=== PATIENT | male | born 1965 | race Caucasian/White ===

== ENCOUNTER 2024-01-31 17:45 | Inpatient (IN) | payer MEDICAID, SELFPAY ==
[2024-01-31 17:46] VITALS: BP 111/85; PULSE 105; RESP 16; TEMP 36.4; O2SAT 96; BMI 25.1
--- NOTE | 2024-01-31 18:00 | EKG12_ITS ---
Test Reason : EDEMA Blood Pressure : / mmHG Vent. Rate : 102 BPM Atrial Rate : 102 BPM P-R Int : 112 ms QRS Dur : 072 ms QT Int : 436 ms P-R-T Axes : 071 015 115 degrees QTc Int : 568 ms Critical Test Result: Long QTc Sinus tachycardia with occasional Premature ventricular complexes Low voltage QRS ST & T wave abnormality, consider lateral ischemia Abnormal ECG Confirmed by XAVIER IRAHETA, SHAQUILLE ([id number]), senior editor ROYA LANDEROS ([id number]) on 02/01/2024 2:49:48 PM Referred By: Confirmed By:SHAQUILLE PARK MD
--- NOTE | 2024-01-31 18:01 | EX.ED.DYSGE1 ---
HPI History of Present Illness Chief Complaint: Edema Informant: patient and family Onset/Context/Timing Onset: Month(s) Context: Gradual Onset Timing: Continuous Current Severity: Moderate Maximum Severity: Moderate Narrative Narrative: 58-year-old male with medical history of prior hip replacement and prior right leg blood clots. History of alcohol abuse drinks daily and smokes about half to 1/3 pack of cigarettes a day. Daughter has not seen him for a while. There is a family she 50 mL and therefore on . Does not believe has been evaluated by a physician for years. He is complaining of bilateral lower extremity swelling and abdominal swelling. He is also had some nausea and vomiting. He has no history of cardiac disease or cirrhosis or kidney disease but again he has not been seen by a physician probably for years. Prior similar symptoms: Yes Recent Illness/Hospitalization: No [facility] Medical History (Updated 01/31/24 @ 20:[address] Omar Pressley MD) Alcoholic Home Medications ?Medication ?Instructions ?Recorded ?Last Taken ?Type NK 01/31/24 Unknown History Allergy/AdvReac Type Severity Reaction Status Date / Time latex Allergy Mild Rash Verified 01/31/24 17:48 Social History Smoking Status: Current every day smoker tobacco type: cigarettes ROS ROS ED ROS Narrative Swelling. Shortness of breath. Constitutional Constitutional ED: Denies chills or fever(s) Eyes Eyes: Denies blurry vision ENT ENT ED: Denies ear pain Cardiovascular Cardiovascular: Denies chest pain Respiratory/Chest Respiratory/Chest: Reports dyspnea; Denies cough Gastrointestinal Gastrointestinal: Reports nausea and vomiting; Denies abdominal pain, constipation, diarrhea or melena Genitourinary Genitourinary ED: Denies dysuria or hematuria Musculoskeletal Musculoskeletal: Denies arthralgias, back pain, myalgias or neck pain Integumentary Denies abscess or Abrasions Neurologic Neurologic: Denies headache(s) Psychiatric Psychiatric: Denies anxiety or depression Endocrine Endocrinology: Denies cold intolerance Hematologic/Lymphatic Hematologic/Lymphatic: Reports none Allergic/Immunologic Allergic/Immunologic ED: Denies mouth swelling, tongue swelling or urticaria EXAM Physical Exam Narrative Exam Narrative: 58-year-old male sitting upright in bed. No acute distress. Daughter at bedside. H EENT exam unremarkable. Neck nontender. Lungs coarse breath sounds. Few scattered wheezes. Chronic smoker. Heart tachycardic rate of 105 no murmur. Chest wall and ribs nontender. Abdomen distended consistent with ascites. Moving all 4 extremities. 1-2+ pitting edema both lower extremities. Nontender. Dorsi plantarflexion intact. Normal pilot submersible strength. He is awake and alert. Answering questions following commands. Const Vital Signs: 01/31/24 17:46 01/31/24 18:05 01/31/24 19:46 Temperature 97.6 F L Temperature Source Temporal Pulse Rate 105 H 97 Respiratory Rate 16 16 Blood Pressure 111/85 H 123/85 H Blood Pressure Mean 93 97 Pulse Ox 96 96 Oxygen Delivery Method Room Air Room Air Positive well nourished and well developed; Negative for cachectic, contractures or unkempt General Appearance ED: well developed and NAD; Negative for unkempt, cachectic, contractures, cyanotic, diaphoretic or pallor Nutritional Appearance: Negative for cachectic HEENT Reports moist mucous membranes; Denies dry mucous membranes Negative for trauma or tenderness Mouth ED: No dry mucous membranes Mouth: No dry mucous membranes Eyes PERRL and EOMs intact bilaterally General Eye ED: Negative for pale conjunctiva or scleral icterus Neck no lymphadenopathy, supple and no JVD General: Negative for tenderness Lymph Lymphatic: Negative for other Chest Wall inspection of chest normal and palpation of chest normal Resp normal respiratory effort and No clear to auscultation bilaterally Auscultation: wheezes Cardio regular rhythm, S1 normal heart sound, S2 normal heart sound and no murmurs; Negative for regular rate Rate: tachycardic GI normal to inspection, nondistended, normoactive bowel sounds, non-tender, non-distended and no masses GI Narrative: Ascites. No peritoneal signs. Inspection: Negative for abdominal distention Auscultation: normoactive bowel sounds Palpation: soft; Negative for tender, guarding or rebound tenderness present Back/Spine no CVA tenderness General Back: Negative for CVA tenderness Cervical Spine: Negative for cervical spine tenderness Thoracic Spine / Upper Back: Negative for thoracic spinal tenderness Extremity Negative for normal to inspection Extremity Narrative: Bilateral 2+ pitting edema. General Extremety ED: Yes edema General Extremity: edema Neuro oriented x3 and CN's II-XII intact bilaterally Sensorium / Orientation: alert; Negative for orientation impaired Motor Exam: strength 5/5 throughout Psych mental status grossly normal Appearance: Negative for unkempt Attitude: No agitated Mood & Affect: Negative for depressed, anxious or tearful Skin no rashes or lesions noted and no wounds General Skin Exam: Negative for jaundice or pallor Lesions: No lesion noted Rashes: No rashes noted Trauma: Negative for abrasion Wounds: Negative for wounds noted MDM MDM MDM Narrative Medical decision making narrative: 58-year-old male history of alcohol and tobacco abuse with abdominal and lower extremity ascites. Concern would be for cirrhosis versus kidney disease versus CHF versus other etiologies. Repeat exam no significant change. Have already spoken to the hospitalist. She is in the room evaluating the patient for admission. He will be given oral potassium. History & Record Review Discussion w/independent historian: Patient and Family Additional record(s) reviewed:: No prior records Lab Data Attestation: I reviewed the patient's lab results. Lab results narrative: CBC shows white count 10.7. H&H 13 and 37. Platelets 285. PT and INR of 15 and 1. PTT is 29. Electrolytes show sodium 133. Potassium of 2.9. Gap 7. Normal BUN of 5 and creatinine 0.7. Glucose 123. Liver enzymes unremarkable other than alk phos of 155. BNP is 108. CAT scan of the abdomen shows abdominal ascites plus other findings. Labs: Laboratory Results - last 24 hr 01/31/24 17:57 WBC 10.7 RBC 3.44 L Hgb 13.1 Hct 37.0 L MCV 107.6 H MCH 38.1 H MCHC 35.4 RDW Std Deviation 52.8 H RDW Coeff of Meagan 13.3 Plt Count 285 MPV 10.6 Immature Gran % (Auto) 0.400 Neut % (Auto) 64.2 Lymph % (Auto) 26.0 [place] % (Auto) 8.3 Eos % (Auto) 0.7 Baso % (Auto) 0.4 Absolute Neuts (auto) 6.9 Absolute Lymphs (auto) 2.77 Nucleated RBC % 0 PT 15.4 H INR 1.2 APTT 29.9 Sodium 133 L Potassium 2.9 L Chloride 93 L Carbon Dioxide 33.0 H Anion Gap 7 BUN 5 L Creatinine 0.79 Estim Creat Clear Calc 105.24 Est GFR (MDRD) Af Amer 130 Est GFR (MDRD) Non-Af 107 BUN/Creatinine Ratio 6.3 L Glucose 123 H Calcium 9.1 Total Bilirubin 1.60 H Direct Bilirubin 0.64 H AST 37 ALT 20 Alkaline Phosphatase 155 H Troponin I High Sens 6 B-Natriuretic Peptide 108.6 H Total Protein 5.7 L Albumin 2.0 L Globulin 3.7 Radiography Chest X-Ray - ED: 1 View, Read by ED Physician, Read by Radiologist, Normal, Heart, Lungs, Mediastinum, Bony Structures, No Acute Disease and Chronic Changes Diagnostic Testing: Clinical Impression(s) from Imaging Studies Chest X-Ray 01/31/24 18:04 IMPRESSION: There are no acute findings. Electronically Signed: Rubens Traore MD at 18:21 EDT , Abdomen/Pelvis CT 01/31/24 20:17 IMPRESSION: (NOT LISTED IN ORDER OF SIGNIFICANCE) Diffusely heterogeneously enhancing liver. It is difficult to exclude underlying nodules. Moderate abdominal ascites. Cholelithiasis. Small hiatal hernia. Slight increase in the compression deformity of T12. Other findings as above. Electronically Signed: Rubens Traore MD at 20:54 EDT , Chest x-ray, portable, single view shows normal cardiac silhouette. No acute findings. Chronic lung changes. Interpreted both by myself and the radiologist. Rhythm Strip Rhythm Strip: Sinus Tach Rate: 102 Ectopy: None EKG Initial EKG: Attestation: I personally reviewed and interpreted this EKG as follows: Interpretation: No Acute Injury Pattern and Sinus Tachycardia Comments: Sinus tachycardia rate of 102 no acute signs of MD or ischemia. Discharge Plan Dx/Rx/DC Orders Clinical Impression: Abdominal ascites, Bilateral leg edema, History of deep vein thrombosis, History of alcohol abuse, History of tobacco abuse Disposition Disposition: Acute Care Hospital [facility]
--- NOTE | 2024-01-31 18:04 | RAD_ITS ---
STUDY: XR Chest 1 View 01/31/2024 6:02 PM REASON FOR EXAM: Male, 58 years old. CHEST PAIN COMPARISON: None TECHNIQUE: XR Chest 1 View FINDINGS: There is no demonstrated pleural abnormality. Normal heart size. Normal mediastinum. Normal jamar. Prominent appearing increased interstitial lung markings. Normal visualized pulmonary arteries. There is atherosclerotic calcification of the aortic arch with tortuosity. There are diffuse degenerative changes of the visualized thoracic spine. There is degenerative osteoarthritis of the bilateral shoulders. Metal sideplate transfixing the left clavicle. There are no acute findings of the upper abdomen. RAD/Chest 1 View (Portable) IMPRESSION: There are no acute findings. Electronically Signed: Rubens Traore MD at 18:21 EDT ,
[2024-01-31 18:23] LABS: Absolute Lymphocyte Count 2.77 X10^3/uL (0.83-4.51); Absolute Neutrophil Count 6.9 X10^3/uL (2.0-7.7); Basophil# 0.04 X10^3/uL; Basophil% 0.4 % (0-1); Eosinophil# 0.07 X10^3/uL; Eosinophils% 0.7 % (0-5); Hemoglobin 13.1 g/dL (13.0-16.5); Lymphocyte # 2.77 X10^3/ul (0.83-4.51); Mean Corp Hgb Conc 35.4 g/dL (32-36); Mean Corpuscular Hgb 38.1 pg (27.0-32.0); Mean Corpuscular Volume 107.6 fL (80-94); Mean Platelet Vol. 10.6 fl (6.2-12.0); Monocyte# 0.89 X10^3/uL; Monocyte% 8.3 % (0-10); NRBC Flagged by Analyzer 0 % (0-5); Neutrophil # 6.86 X10^3/uL (2.7-7.7); Neutrophil % 64.2 % (47-70); Platelet Count 285 K/mm3 (150-450); RBC Distribution Width CV 13.3 % (11.6-14.6); RBC Distribution Width SD 52.8 fl (35.1-43.9); Red Blood Count 3.44 M/mm3 (4.6-6.2); White Blood Count 10.7 K/mm3 (4.4-11.0)
[2024-01-31 18:28] LABS: International Normalized Ratio 1.2; Prothrombin Time (Protime)PT. 15.4 SECONDS (11.7-14.9)
[2024-01-31 18:30] LABS: Partial Thromboplast Time 29.9 Seconds (24.1-36.2)
[2024-01-31 18:35] LABS: AST(SGOT) 37 U/L (15-37); Alanine Aminotransfer ALT/SGPT 20 U/L (16-61); Alkaline Phosphatase 155 U/L (45-117); Anion Gap 7 (5-15); BUN 5 mg/dL (7-18); BUN/Creat Ratio 6.3 RATIO (10-20); Bilirubin, Direct 0.64 mg/dL (0.00-0.30); Calcium,Total 9.1 mg/dL (8.5-10.1); Chloride 93 mmol/L (98-107); Creatinine, Serum 0.79 mg/dL (0.70-1.30); EST Glomerular Filtration Rate 107 mL/min (>60); Est Glom Filt Rate - Afr Amer 130 mL/min (>60); Estimated Creatinine Clearance 105.24 ml/min; Globulin 3.7 g/dL (2.2-4.2); Glucose 123 mg/dL (74-106); Potassium 2.9 mmol/L (3.5-5.1); Protein, Total 5.7 g/dL (6.4-8.2); Sodium Level 133 mmol/L (136-145); Troponin-I HS 6 pg/mL (3.0-78.0)
[2024-01-31 19:00] LABS: BNP,B-Type NATRIURETIC PEPTIDE 108.6 pg/mL (0-100)
[2024-01-31 19:46] VITALS: BP 123/85; PULSE 97; RESP 16; O2SAT 96
--- NOTE | 2024-01-31 20:17 | CT_ITS ---
STUDY: CT Abdomen And Pelvis W/ Contrast Injection 01/31/2024 8:50 PM REASON FOR EXAM: Male, 58 years old. ascites Individualized dose optimization techniques were used for this CT. COMPARISON: xr 05.16.04. TECHNIQUE: CT Abdomen And Pelvis W/ Contrast Injection IV 100mL [id number] FINDINGS: There are atherosclerotic calcifications of visualized coronary arteries. The visualized portions of the heart are within normal limits. Diffusely heterogeneously enhancing liver. It is difficult to exclude underlying nodules. There are multiple gallstones. Normal spleen. Normal pancreas. Normal bilateral adrenal glands. There are hypodensities in the right kidney. These are consistent for cysts. No follow up required. There are hypodensities in the left kidney. These are consistent for cysts. No follow up required. There is a small hiatal hernia. Normal small intestine. Wall thickening of the colon is likely related to the overlying ascites. There is non-visualization of the appendix. There are calcifications of the abdominal aorta. This is consistent for atherosclerotic disease. There is NO abdominal aortic aneurysm. Vascular workup can be obtained based on clinical correlation. Normal inferior vena cava. Subcentimeter mesenteric lymph nodes. Normal urinary bladder. Metal hardware in the right femur. Abdominal and pelvic ascites. Normal abdominal wall. There are diffuse degenerative changes of the visualized lumbar spine. Slight increase in the compression deformity of T12. CT/Abdomen/Pelvis W IV Cont ONLY IMPRESSION: (NOT LISTED IN ORDER OF SIGNIFICANCE) Diffusely heterogeneously enhancing liver. It is difficult to exclude underlying nodules. Moderate abdominal ascites. Cholelithiasis. Small hiatal hernia. Slight increase in the compression deformity of T12. Other findings as above. Electronically Signed: Rubens Traore MD at 20:54 EDT ,
--- NOTE | 2024-01-31 20:34 | HP.PCM.HOS_ITS ---
HPI - General General Date of Admission: 01/31/24 Date of Service: 01/31/24 Chief Complaint: Worsening edema, abdominal distention/pain. HPI Narrative The patient is a 58 y/o M w/ PMHx: EtOH abuse with suspected potential underlying Alcoholic Cirrhosis, Tobacco use, Hx VTE who presents to the [facility] ED on 01/31/24 with history of ongoing daily alcohol abuse with a recent prompting family to evaluate him on with complaint of bilateral lower extremity swelling as well as abdominal distention/swelling with nausea and emesis with no physician evaluation reported per family for several years prompting them to bring him in for evaluation. Patient does admit to some mild generalized abdominal discomfort as well as to his legs which he attributes to the increased fluid. He admits to poor oral intake and not taking care of himself in general. He normally drinks up to half 1/5 of [place] daily but he has decreased this significantly over the last 2 weeks and has maybe been having 1-3 drinks a day more so recently wine as he has been staying with his daughter since the . He denies any alcohol withdrawal symptoms. Workup in the ED included T97.6, heart rate 105, BP 111/85, respiratory rate 16, 96% on room air, CBC with WC 10.7, human 13.1, MCV 107.6, platelet 285 without marked shift, coags with PT 15.4 otherwise not marked appearing, CMP with sodium 133, potassium 2.9, chloride 93, complex at 33, BUN/creatinine 5/0.79, glucose 123, T. bili 1.60, T. bili 0.64, AST/LT 37/20, alk phos 155, troponin 6, BNP 108.6, chest x-ray with no acute cardiopulmonary findings, EKG with sinus tachycardia with no acute evidence of ischemia, CT A/P w/ diffusely heterogeneous enhancing liver difficult to exclude nodules, moderate abdominal ascites, evidence cholelithiasis, small hiatal hernia, slight increase in compression deformity T8 12, EKG with sinus tachycardia with nonspecific ST-T wave changes with no acute evidence of ischemia. In the ED patient administered morphine 6 mg IV x 1, Zofran 4 mg IV x 1. [facility] Medical History History of venous thromboembolism Alcohol abuse Tobacco use Home Medications ?Medication ?Instructions ?Recorded ?Last Taken ?Type NK 01/31/24 Unknown History Allergy/AdvReac Type Severity Reaction Status Date / Time latex Allergy Mild Rash Verified 01/31/24 17:48 Family History (Updated 01/31/24 @ 22:[address] Earnestine Contreras MD) Mother COPD (chronic obstructive pulmonary disease) Father , in his 30s, accidental CO poisoning. No problems noted. Surgical History History of surgery on lower extremity History of hip surgery History of orthopedic surgery Social History (Updated 01/31/24 @ 22:[address] Earnestine Contreras MD) household members: none Smoking Status: Current every day smoker tobacco type: cigarettes Smoking packs per day: 0.25 Smoking cigarettes per day: 5.0 alcohol intake: current alcohol intake frequency: 3 or more drinks per day details: Prio 1/2 5th crown daily->down to 1-3 drinks daily, cutting back. substance use type: does not use ROS ROS Narrative Admission Review of Systems: CONSTITUTIONAL: No weight loss, fever, chills, + weakness or fatigue. HEENT: Eyes: No visual loss, blurred vision, double vision or yellow sclerae. Ears, Nose, Throat: No hearing loss, sneezing, congestion, runny nose or sore throat. SKIN: No rash or itching, lesions, wounds. CARDIOVASCULAR: No chest pain, chest pressure or chest discomfort, palpitations, edema, orthopnea, syncopal events. RESPIRATORY: No shortness of breath, cough or sputum, wheezing, hemoptysis. GASTROINTESTINAL: + Anorexia, nausea, vomiting, abdominal distention/discomfort. No diarrhea, melena, BRBPR. GENITOURINARY: No dysuria, frequency, urgency or retention. NEUROLOGICAL: No headache, dizziness, syncope, paralysis, ataxia, numbness or tingling in the extremities, focal weakness, change in bowel or bladder control, seizure. MUSCULOSKELETAL: + muscle, back pain, joint pain or stiffness. HEMATOLOGIC: No anemia. + Easy bleeding/bruising. LYMPHATICS: No enlarged nodes. No history of splenectomy. PSYCHIATRIC: No history of depression or anxiety. ENDOCRINOLOGIC: No reports of sweating, cold or heat intolerance. No polyuria or polydipsia. ALLERGIES: No history of asthma, hives, eczema or rhinitis. Vital Signs Vital Signs Vital Signs: 01/31/24 17:46 01/31/24 18:05 01/31/24 19:46 Temperature 97.6 F L Temperature Source Temporal Pulse Rate 105 H 97 Respiratory Rate 16 16 Blood Pressure 111/85 H 123/85 H Blood Pressure Mean 93 97 Pulse Ox 96 96 Oxygen Delivery Method Room Air Room Air Weight Weight: 175 lb Body Mass Index (BMI) 25.1 Physical Exam Narrative physical Examination: General: Awake, alert, oriented x 3 and cooperative, seated upright in the ED bed, fatigued, denies any marked pain to the abdomen however more so if you palpated, 4-5 out of 10 in severity. Skin: Normal color, normal turgor, no icterus, no cyanosis except occasional staged ecchymoses, abrasion. HEENT: AT/NC, EOMI, PERRLA, MMM, no carotid bruits or JVD noted. Lungs: Diminished, greater bases, appropriate effort, occasional end expiratory wheeze, no rales or rhonchi. Heart: Mildly tachycardic with regular rhythm; no gallop, rub audible. Abdomen: Soft, mild generalized discomfort with no rebound or guarding, distended, mildly tympanitic, fluid wave/ascites evident, mildly hyperactive BS, difficult to assess HSM given distention. Extremities: No cyanosis, no clubbing, bilateral lower extremity pedal to proximal mccauley 1-2+ pitting edema. Neurological: Patient awake, alert, oriented as noted, cognitive function intact; pupils equally reactive to light and accommodation, cranial nerves grossly normal, moving all 4 extremities, no focal deficits, strength moderately to severely globally decreased secondary to acute complaints. Psychiatric: Affect appears flat, fatigued, no acute evidence of depressive or anxiety feelings. Results Lab / Micro Data 01/31/24 17:57 01/31/24 17:57 Labs: Laboratory Results - last 24 hr 01/31/24 17:57: WBC 10.7, RBC 3.44 L, Hgb 13.1, Hct 37.0 L, MCV 107.6 H, MCH 38.1 H, MCHC 35.4, RDW Std Deviation 52.8 H, RDW Coeff of Meagan 13.3, Plt Count 285, MPV 10.6, Immature Gran % (Auto) 0.400, Neut % (Auto) 64.2, Lymph % (Auto) 26.0, [place] % (Auto) 8.3, Eos % (Auto) 0.7, Baso % (Auto) 0.4, Absolute Neuts (auto) 6.9, Absolute Lymphs (auto) 2.77, Nucleated RBC % 0, PT 15.4 H, INR 1.2, APTT 29.9, Sodium 133 L, Potassium 2.9 L, Chloride 93 L, Carbon Dioxide 33.0 H, Anion Gap 7, BUN 5 L, Creatinine 0.79, Estim Creat Clear Calc 105.24, Est GFR (MDRD) Af Amer 130, Est GFR (MDRD) Non-Af 107, BUN/Creatinine Ratio 6.3 L, G lucose 123 H, Calcium 9.1, Total Bilirubin 1.60 H, Direct Bilirubin 0.64 H, AST 37, ALT 20, Alkaline Phosphatase 155 H, Troponin I High Sens 6, B-Natriuretic Peptide 108.6 H, Total Protein 5.7 L, Albumin 2.0 L, Globulin 3.7 Rhythm Strip Rhythm Strip: Sinus Tach Rate: 102 Ectopy: None Imaging Radiology Impression Chest X-Ray 01/31/24 18:04 IMPRESSION: There are no acute findings. Electronically Signed: Rubens Traore MD at 18:21 EDT , Assessment & Plan Assessment/Plan (1) Abdominal ascites: PLAN: Plan The patient is a 58 y/o M w/ PMHx: EtOH abuse with suspected potential underlying Alcoholic Cirrhosis, Tobacco use, Hx VTE who presents to the [facility] ED on 01/31/24 with history of ongoing daily alcohol abuse with a recent prompting family to evaluate him on with complaint of bilateral lower extremity swelling as well as abdominal distention/swelling with nausea and emesis with no physician evaluation reported per family for several years prompting them to bring him in for evaluation. #1. Acute Worsened Ascites w/ High Suspicion Acute Decompensated Alcoholic Cirrhosis with mild hyperbilirubinemia, mildly elevated alk phos: Will admit to ID, maintain on low Na/DM diet, water 1500 ml restriction, lasix IV diuresis regimen w/ transition to oral regimen upon discharge, NH level requested, hold on initiation of spironolactone w/ transition upward outpatient, consult radiology for diagnostic and therapeutic paracentesis including SAAG gradient (albumin), cell count and differential, total protein concentration, culture, glucose LDH, gram stain, amyulase, cytology. Coags already obtained for paracentesis in AM. Will request hepatitis panel to be cautious given age. #2. Mild Hyponatremia, hypochloremia, suspected secondary to EtOH abuse: Admission Na 133, Chl 93, likely secondary to EtOH abuse, will continue to trend CMP. #3. Hypokalemia: Admission K+ 2.9, magnesium level requested, supplementation given, repeat level in AM. #4. EtOH Abuse: Patient notes routine consumption of currently max 1-3 drinks daily but this is significantly decreased over the last 2 weeks as previous to this strength about a half of 1/5 of [place] per day. Will maintain on CIWA protocol, MVI, thiamine and folic acid. Strongly encouraged sobriety. Case management consulted. #5. History of VTE: Suspect lower extremity swelling primarily secondary to #1 but cautious will obtain bilateral lower extremity duplex ultrasound. #6. Severe protein calorie malnutrition: Evidenced by muscle and fat loss, per discussion of oral intake has a very unhealthy eating habits with minimal food intake on a routine basis, nutrition consulted for recommendations and supplementation recommendations. #7. Tobacco Abuse: Encouraged cessation, inpatient consultation per RT, NR if desired. #8. DVT prophylaxis: SCDs, hold chemoprophylaxis for planned paracentesis as noted. #9. CODE status: Patient HCPOA and living will are not in place but he notes his daughter who is present would be his medical decision-maker if necessary. Discussed CODE status at length including difference between FULL code, DNR-CCA and DNR-CC status. Following discussions about the differences in these status, requested Full Code status. Advanced Care Planning Face to Face Time: 16 minutes. Charges/Coding Visit Charges Inpatient E&M: 47007 Init Hosp L3
[2024-01-31] MEDS: Ondansetron 4 MG/2 ML Vial IV (20:47)
[2024-01-31] MEDS: morphine 8 MG/ML Syringe 6 MG IV (20:48)
[2024-01-31 21:31] VITALS: BP 106/79; PULSE 104; RESP 21; TEMP 36.6; O2SAT 96
--- NOTE | 2024-01-31 21:34 | VDLE_ITS ---
Reason For Study: BLE Swelling RIGHT LEFT GSV is normal. GSV is normal. CFV is compressible, spontaneous, phasic, CFV is compressible, spontaneous, phasic, competent and demonstrates normal competent, and demonstrates normal augmentation. augmentation. FV is PARTIALLY COMPRESSIBLE w/ intraluminal FV is compressible, spontaneous, phasic, hyperechogenicity and diminished flow. Finding competent and demonstrates normal is consistent with CHRONIC DVT. augmentation. POP V is PARTIALLY COMPRESSIBLE w/ POP V is compressible, spontaneous, phasic, intraluminal hyperechogenicity and diminished competent and demonstrates normal flow. Finding is consistent with CHRONIC DVT. augmentation. T/P Trunk is PARTIALLY COMPRESSIBLE w/ T/P Trunk is compressible. intraluminal hyperechogenicity. Finding is PTV is compressible. consistent with CHRONIC DVT. LT PerV is compressible. PTV is PARTIALLY COMPRESSIBLE w/ intraluminal hyperechogenicity. Finding is consistent with CHRONIC DVT. Lorin V is PARTIALLY COMPRESSIBLE w/ intraluminal hyperechogenicity. Finding is consistent with CHRONIC DVT. SSV is compressible with vein wall thickening noted throughout. Procedure This is a venous duplex using B-mode, color flow and spectral Doppler. Exam performed in department. The exam was diagnostic. A preliminary report was called and/or faxed to M/S 3 picking supervisor. VL/Venous Duplex US - Fran Extrem Interpretation Summary Chronic deep vein thrombosis is noted in the right femoral vein, popliteal vein , tibioperoneal trunk vein, posterior tibial mario alberto, peroneal vein. Deep veins of the left lower extremity are patent and compressible segmentally. There is no evidence of left lower extremity deep vein thrombosis. The bilateral great saphenous vei ns appear patent and compressible segmentally. Ordering Physician: Earnestine Contreras Referring Physician: N/A Performed By: Darrin Ramos RVT
[2024-01-31] MEDS: Potassium Chloride Oral Tablet 20 MEQ 40 MEQ PO (21:43)
[2024-01-31 22:01] LABS: Magnesium 1.4 mg/dL (1.6-2.6); Phosphorus 2.5 mg/dL (2.5-4.9)
[2024-01-31 22:03] VITALS: BMI 23.6
[2024-01-31 22:51] LABS: Albumin, Serum 1.9 g/dL (3.2-5.0)
[2024-01-31 22:52] VITALS: BP 99/78; PULSE 100; RESP 20; TEMP 36.4; O2SAT 94
[2024-01-31] MEDS: Pantoprazole Sodium 20 MG Tablet PO (22:56)
[2024-01-31] MEDS: 0.9% Saline Lock 10 ML Syringe IV (23:01)
[2024-02-01] VITALS (11 sets, daily range): BP systolic 90–109; BP diastolic 62–84; PULSE 91–106; RESP 12–20; TEMP 36.5–36.7; O2SAT 91–99; BMI 24.5
[2024-02-01] MEDS: MELATONIN 3 MG TABLET PO (00:29)
[2024-02-01 01:09] LABS: Hepatitis B Surface Antibody Non-Reactive; Hepatitis B Surface Antigen Non-Reactive (Nonreactive); Hepatitis C Antibody Non-Reactive (Nonreactive)
[2024-02-01 05:25] LABS: Absolute Lymphocyte Count 2.23 X10^3/uL (0.83-4.51); Absolute Neutrophil Count 5.4 X10^3/uL (2.0-7.7); Basophil# 0.04 X10^3/uL; Basophil% 0.5 % (0-1); Eosinophil# 0.12 X10^3/uL; Eosinophils% 1.4 % (0-5); Hematocrit 32.2 % (40-54); Hemoglobin 11.4 g/dL (13.0-16.5); Lymphocyte # 2.23 X10^3/ul (0.83-4.51); Lymphocyte % 26.4 % (19-41); Mean Corp Hgb Conc 35.4 g/dL (32-36); Mean Corpuscular Hgb 38.3 pg (27.0-32.0); Mean Corpuscular Volume 108.1 fL (80-94); Mean Platelet Vol. 10.4 fl (6.2-12.0); Monocyte# 0.67 X10^3/uL; Monocyte% 7.9 % (0-10); NRBC Flagged by Analyzer 0 % (0-5); Neutrophil # 5.36 X10^3/uL (2.7-7.7); Neutrophil % 63.6 % (47-70); Platelet Count 210 K/mm3 (150-450); RBC Distribution Width CV 13.3 % (11.6-14.6); RBC Distribution Width SD 52.9 fl (35.1-43.9); Red Blood Count 2.98 M/mm3 (4.6-6.2); White Blood Count 8.4 K/mm3 (4.4-11.0)
[2024-02-01 05:50] LABS: ALB/GLOB Ratio 0.5 RATIO (0.9-2.4); AST(SGOT) 25 U/L (15-37); Alanine Aminotransfer ALT/SGPT 16 U/L (16-61); Albumin, Serum 1.6 g/dL (3.2-5.0); Alkaline Phosphatase 126 U/L (45-117); Anion Gap 4 (5-15); BUN 5 mg/dL (7-18); BUN/Creat Ratio 8.9 RATIO (10-20); Calcium,Total 8.3 mg/dL (8.5-10.1); Chloride 94 mmol/L (98-107); Creatinine, Serum 0.56 mg/dL (0.70-1.30); EST Glomerular Filtration Rate 159 mL/min (>60); Est Glom Filt Rate - Afr Amer 192 mL/min (>60); Estimated Creatinine Clearance 148.46 ml/min; Globulin 3.2 g/dL (2.2-4.2); Glucose 102 mg/dL (74-106); Potassium 3.4 mmol/L (3.5-5.1); Protein, Total 4.8 g/dL (6.4-8.2); Sodium Level 132 mmol/L (136-145)
[2024-02-01] MEDS: Budesonide Respules 0.5 MG/2 ML AMPUL.NEB. INHALATION ×2 (05:52→19:30)
[2024-02-01] MEDS: Albuterol 2.5 MG/3 ML VIAL.NEB. INHALATION (05:53)
[2024-02-01] MEDS: Folic Acid 1 MG Tablet PO (09:22)
[2024-02-01] MEDS: Pantoprazole Sodium 20 MG Tablet PO ×2 (09:22→20:30)
[2024-02-01] MEDS: Multivitamins,Ther W-Minerals Tablet 1 TABLET PO (09:22)
[2024-02-01] MEDS: Thiamine Hydrochloride 100 MG Tablet PO (09:25)
[2024-02-01] MEDS: Potassium Chloride Oral Tablet 20 MEQ 40 MEQ PO (11:37)
[2024-02-01] MEDS: Spironolactone 25 MG Tablet PO (12:53)
--- NOTE | 2024-02-01 13:05 | CASEMGMT ---
NONI JARAMILLO Assessment Face to Face with patient for initial transition planning/care coordination assessment. NONI JARAMILLO introduced self and role at [facility], pt voices understanding. Pt is A&Ox4 and is resting comfortably in bed and is calm. Care providers, pharmacy, and demographics verified. Admitting dx: Decompensated Cirrhosis LACE Strata: 1 PCP: No PCP. Pt is from [place] and denies the local list offered. Pt states that he will set this up in his own time Specialists: Denies Preferred Pharmacy: Pt states that [facility] is OK to use short term Insurance: Pt is SP. Pt states that Lacy has been in to discuss applying for [employer] Prescription Benefit: None at this time LNOK: Swapna Greenwood ([facility]) Living Arrangements: Pt normally lives in [place] in a camper. However, pt states that his mother recently so he is currently living with his daughter in a single story home with a flat entrance. ADLs/IADLs: Ind Transportation:Self, daughter. Denies concerns DME: Nebulizer, cane. Denies further needs HHC/SNF: Denies History Plan: Anticipate DC tomorrow. Pt denies HH or SNF needs at this time. Pt states that he might be interested in OP Therapy depending on how he progresses in the hospital. CM to follow for medication costs as well as the need for OP Therapy. Report given to KATE CHENEY CM. Home Giordano RN, CM
[2024-02-01] MEDS: guaiFENesin 10 ML UDC (200MG/10ML) PO (13:09)
[2024-02-01] MEDS: BENZOCAINE/MENTHOL 1 LOZENGE MUCOUS MEM (13:09)
--- NOTE | 2024-02-01 15:05 | CASEMGMT ---
Social Work- SW attempted to meet with pt to complete SDOH. Pt was sleeping and did not respond to attempts to wake up. SW will continue to complete SDOH. TROY Mart
--- NOTE | 2024-02-01 15:31 | PCM.PN.HOSP ---
Reason for Visit Reason for Visit: Diagnoses Other ascites (01/31/24) Subjective Subjective Patient was seen and examined today, they were not able to do the paracentesis-there was nobody in interventional radiology to perform it today. I have decided to add on spironolactone to the patient's medications. Objective Data Objective Data Vital Signs: Vital Signs Temp Pulse Resp BP Pulse Ox O2 Del Method 98 F 99 18 91/62 91 Room Air 02/01/24 11:44 02/01/24 11:44 02/01/24 11:44 02/01/24 11:44 02/01/24 11:44 02/01/24 11:44 Oxygen Delivery Method Room Air Weight: 77.8 kg Body Mass Index (BMI) 24.5 Intake & Output: Intake and Output for Last 24 Hours 01/30/24 01/31/24 02/01/24 23:59 23:59 23:59 Intake Total 200 / 200 Balance 200 / 200 Lab / Micro Data 02/01/24 05:13 02/01/24 05:13 Labs: Laboratory Results - last 24 hr 01/31/24 17:57: WBC 10.7, RBC 3.44 L, Hgb 13.1, Hct 37.0 L, MCV 107.6 H, MCH 38.1 H, MCHC 35.4, RDW Std Deviation 52.8 H, RDW Coeff of Meagan 13.3, Plt Count 285, MPV 10.6, Immature Gran % (Auto) 0.400, Neut % (Auto) 64.2, Lymph % (Auto) 26.0, [place] % (Auto) 8.3, Eos % (Auto) 0.7, Baso % (Auto) 0.4, Absolute Neuts (auto) 6.9, Absolute Lymphs (auto) 2.77, Nucleated RBC % 0, PT 15.4 H, INR 1.2, APTT 29.9, Sodium 133 L, Potassium 2.9 L, Chloride 93 L, Carbon Dioxide 33.0 H, Anion Gap 7, BUN 5 L, Creatinine 0.79, Estim Creat Clear Calc 105.24, Est GFR (MDRD) Af Amer 130, Est GFR (MDRD) Non-Af 107, BUN/Creatinine Ratio 6.3 L, Glucose 123 H, Calcium 9.1, Phosphorus 2.5, Magnesium 1.4 L, Total Bilirubin 1.60 H, Direct Bilirubin 0.64 H, AST 37, ALT 20, Alkaline Phosphatase 155 H, Troponin I High Sens 6, B-Natriuretic Peptide 108.6 H, Total Protein 5.7 L, Albumin 2.0 L 01/31/24 17:57: Albumin 1.9 L, Globulin 3.7 01/31/24 21:45: Ammonia 11.0 01/31/24 23:40: Hep Bs Antigen Non-Reactive, Hep Bs Antibody Non-Reactive, Hepatitis C Antibody Non-Reactive 02/01/24 05:13: WBC 8.4, RBC 2.98 L, Hgb 11.4 L, Hct 32.2 L, MCV 108.1 H, MCH 38.3 H, MCHC 35.4, RDW Std Deviation 52.9 H, RDW Coeff of Meagan 13.3, Plt Count 210, MPV 10.4, Immature Gran % (Auto) 0.200, Neut % (Auto) 63.6, Lymph % (Auto) 26.4, [place] % (Auto) 7.9, Eos % (Auto) 1.4, Baso % (Auto) 0.5, Absolute Neuts (auto) 5.4, Absolute Lymphs (auto) 2.23, Nucleated RBC % 0, Sodium 132 L, Potassium 3.4 L, Chloride 94 L, Carbon Dioxide 34.0 H, Anion Gap 4 L, BUN 5 L, Creatinine 0.56 L, Estim Creat Clear Calc 148.46, Est GFR (MDRD) Af Amer 192, Est GFR (MDRD) Non-Af 159, BUN/Creatinine Ratio 8.9 L, Glucose 102, Calcium 8.3 L, Total Bilirubin 1.40 H, AST 25, ALT 16, Alkaline Phosphatase 126 H, Total Protein 4.8 L, Albumin 1.6 L, Globulin 3.2, Albumin/Globulin Ratio 0.5 L Radiography Diagnostic Testing: Radiology Impression Chest X-Ray 01/31/24 18:04 IMPRESSION: There are no acute findings. Electronically Signed: Rubens Traore MD at 18:21 EDT Reading Location ID and State: [facility] / MD , Service support , Abdomen/Pelvis CT 01/31/24 20:17 IMPRESSION: (NOT LISTED IN ORDER OF SIGNIFICANCE) Diffusely heterogeneously enhancing liver. It is difficult to exclude underlying nodules. Moderate abdominal ascites. Cholelithiasis. Small hiatal hernia. Slight increase in the compression deformity of T12. Other findings as above. Electronically Signed: Rubens Traore MD at 20:54 EDT , Rhythm Strip Rhythm Strip: Sinus Tach Rate: 102 Ectopy: None Physical Exam Const alert, oriented x3, no apparent distress and average body habitus General Appearance: cooperative, well kempt and well developed Orientation / Consciousness: awake, oriented to person, oriented to place and oriented to time HEENT normocephalic, head/scalp atraumatic and moist oral mucous membranes Eyes PERRL, EOMs intact bilaterally and conjunctivae normal Neck supple, no JVD, thyroid normal and no carotid bruits General: trachea midline Resp normal respiratory effort and clear to auscultation bilaterally Auscultation: Negative for rales, rhonchi or wheezes Cardio regular rate, regular rhythm, no murmurs, no rub and no gallops GI normal to inspection, nondistended, normoactive bowel sounds, soft to palpation and non-tender GI Narrative: Patient's abdomen is mildly distended Extremity no clubbing, cyanosis or edema Skin no rashes or lesions noted General Skin Exam: no breakdown Neuro oriented x3, CN's II-XII intact bilaterally, moves all extremities, no focal motor deficits and no sensory deficits noted Sensorium / Orientation: awake and alert Speech: speech normal Psych affect normal Assessment & Plan Assessment/Plan (1) Acute hypokalemia: PLAN: Plan 1. Hypokalemia-potassium replacement will be given, BMP will be rechecked tomorrow #2 ascites-from suspected undiagnosed liver disease-patient will undergo a paracentesis tomorrow, I placed him on Aldactone today. Total clinical time spent by myself addressing the patient's medical issues, reviewing all of his data, and collaborating with patient's care team: 25 minutes Charges/Coding Visit Charges Inpatient E&M: 77633 [facility] L1
[2024-02-01] MEDS: HYDROcodone Bitartrate/Apap 5/325 Tablet PO (18:22)
[2024-02-01] MEDS: 0.9% Saline Lock 10 ML Syringe IV (20:32)
[2024-02-02] VITALS (9 sets, daily range): BP systolic 87–108; BP diastolic 61–78; PULSE 79–101; RESP 12–18; TEMP 36.4–36.7; O2SAT 92–99; BMI 24.1
[2024-02-02] MEDS: Budesonide Respules 0.5 MG/2 ML AMPUL.NEB. INHALATION (06:43)
[2024-02-02 08:32] LABS: Anion Gap 7 (5-15); BUN 6 mg/dL (7-18); BUN/Creat Ratio 8.8 RATIO (10-20); Calcium,Total 8.2 mg/dL (8.5-10.1); Chloride 98 mmol/L (98-107); Creatinine, Serum 0.68 mg/dL (0.70-1.30); EST Glomerular Filtration Rate 126 mL/min (>60); Est Glom Filt Rate - Afr Amer 153 mL/min (>60); Estimated Creatinine Clearance 122.26 ml/min; Glucose 80 mg/dL (74-106); Potassium 3.9 mmol/L (3.5-5.1); Sodium Level 133 mmol/L (136-145)
[2024-02-02] MEDS: HYDROcodone Bitartrate/Apap 5/325 Tablet PO (09:37)
[2024-02-02] MEDS: Multivitamins,Ther W-Minerals Tablet 1 TABLET PO (09:44)
[2024-02-02] MEDS: Thiamine Hydrochloride 100 MG Tablet PO (09:44)
[2024-02-02] MEDS: Pantoprazole Sodium 20 MG Tablet PO (09:44)
[2024-02-02] MEDS: Spironolactone 25 MG Tablet PO (09:45)
[2024-02-02] MEDS: Folic Acid 1 MG Tablet PO (09:45)
--- NOTE | 2024-02-02 11:30 | CASEMGMT ---
Addendum entered by Claudia Hicks 02/02/24 15:24: TC to [facility], pt cost of meds is $13.77. Original Note: Per hospitalist, pt has a FWW at home and declines outpt therapy.
--- NOTE | 2024-02-02 11:49 | CASEMGMT ---
Addendum entered by Lidia Dejesus 02/02/24 15:54: SW met with pt to provide resources packets. Pt questioned pharmacy hours and medication cost. SW relayed time and cost. Pt reports he will let dtr know. Plan: Home with dtr, no needs TROY Mart Addendum entered by Lidia Dejesus 02/02/24 14:27: Sw met again with pt and dtr to discuss d/c planning and provide support, as pt dtr was feeling overwhelmed and teary. Pt dtr states that pt sisters are now not as willing to assist as she previously thought/was told they would be. SW provided empathetic listening and offered community resource packets; pt dtr agreeable. SW discussed pt preference for d/c. Pt states that he uses a cane only on bad days, but at baseline ambulates independently. Pt states he used a walker once several years ago when he broke a femur and is not interested in any devices. Pt and dtr did not want referral for OP therapy. Pt plans to d/c home with no needs. TROY Mart Original Note: Social Work- SW met with pt and pt dtr to complete SDOH assessment. Pt has been living in [place], but came up for his mother's . Family has realized the poor medical condition pt is in and requested that he live with them here in [place]. Pt reports not having been to dr for 2 years. Pt has tried to obtain disability in the past, but never completed the process completely. Pt has not worked for 2 years. Pt physical condition has deteriorated significantly from baseline according to pt. Pt dtr states that pt 2 sisters or she will permanently house pt and provide transportation. SW shared [facility] and [place] disability information and recommended connecting with [employer] for SNAP and TA, as well as other benefits in whatever county he lives in. Pt dtr agreeable. SW reached out to [employer]/Lacy for pending number for medicaid and also passed on dtr contact information per pt request. Pt and dtr report no other needs at this time. TROY Mart
--- NOTE | 2024-02-02 12:00 | US_ITS ---
PROCEDURE: Ultrasound guided paracentesis. DATE OF EXAMINATION: February 02, 2024.. INDICATION: Male, 58 years old. Ascites. PHYSICIAN: Bean Espinosa M.D. TECHNIQUE: The risks, benefits, and alternatives to the procedure were explained to the patient. The specific risks of bleeding, infection, and damage to bowel were detailed and accepted. Witnessed informed consent was obtained. The abdomen was ultrasonographically surveyed. An appropriate pocket of fluid was identified at the right lower quadrant. The skin were cleaned and prepped in the usual sterile fashion. Using ultrasound guidance, the peritoneal cavity was accessed with a 5-Bhutanese paracentesis needle/catheter system. The trocar was removed. A total of 4000 ml of alfredo-colored fluid were removed from the peritoneal cavity. A 100 mL sample was sent to the laboratory. The catheter was removed and a sterile dressing was applied. The procedure was well tolerated. US/Paracentesis with US IMPRESSION: Ultrasound guided paracentesis. Electronically Signed: Bean Espinosa MD at 13:18 EDT ,
[2024-02-02] MEDS: Lidocaine 2% (20 ml mdv) 20 ML Vial INFILT (12:08)
--- NOTE | 2024-02-02 12:10 | FLU_PTH ---
PATIENT: NARCISO RUSSELL LOC: MS3 U#:[id number] AGE/SX: 58/M ROOM: IL317 RE01/31/[address]: Dr. Edgar Bower DO : 1965 BED: 1 DIS: 02/02/2024 SPEC #: [id number] RECD: 02/02/24 13:10 STATUS: TIANA RECasey #: [id number] MATTY: 02/02/24 12:[address]: Edgar Bower DEPT: CYTOLOGY RECD BY: Kim Lawson ENTERED: 02/03/24 07:37 SP TYPE: Fluid OTHR DR: Dr. Earnestine Contreras MD No Primary Care Phys Tissues: PARACENTESIS FLUID Procedures: Special Stain Group II Surgery Specimen Level IV Cytospin Fluid HEADER OPERATION: Paracentesis fluid PRE-OP DIAGNOSIS: Ascites TISSUE SUBMITTED: Paracentesis fluid for cytology DIAGNOSIS CYTOLOGY Paracentesis fluid for cytology (cytospins and cellblock): Negative for malignant cells. AM/mr 02/04/2024 CYTOLOGY STUDY Slides are reviewed. CYTOLOGY GROSS Received is 70 ml of cloudy-yellow fluid labeled with the patient's name and and designated per the requisition as Paracentesis fluid. Submitted for cytology preparation including cell block. Mr 02/03/2024 TC:5 CPT: 36295,41878
[2024-02-02 13:12] LABS: Cytology, Body Fluid / CSF SEE PATHOLOGY REPORT
[2024-02-02 13:53] LABS: Body Fluid Mononuclear WBC # 0.118 10^3/uL; Body Fluid Mononuclear WBC % 82.5 %; Body Fluid Polynuclear WBC # 0.025 10^3/uL; Body Fluid Polynuclear WBC % 17.5 %; Body Fluid Total Cells Counted 0.164 10^3/ul; White Blood Count/Body Fluid 0.143 10^3/uL
--- NOTE | 2024-02-02 14:47 | PCM.DC ---
Discharge Instructions Diet Discharge Diet: No restrictions (Avoid salt in your food is much as possible) Activity Discharge Activity: Return to Normal Activity Weight Bearing Status: Full weight bearing Follow Up Care Test Results: Test results from this visit will be discussed in further detail at your follow-up appointment, if applicable. Discharge Plan Admission Admit Date/Time: 01/31/24 21:30 Primary Reason for Your Visit: Ascites, possible cirrhotic liver disease Attending Provider: Edgar Bower Primary Care Provider: Care Physician,No Primary Consulting Providers: Earnestine Contreras Instructions Additional Instructions / Restrictions: Do not drink alcohol Discharge Orders/Prescriptions Prescriptions: New spironolactone 25 mg Tablet 25 mg PO DAILYCM Qty: 30 1RF Referrals / Follow Up: Slim Guadalupe MD [Med Staff - Budget Specialist] - Soco Perdomo [Non-Staff] - See Referral Note (In 2 weeks, call for an appointment) Care Physician,No Primary [Primary Care Provider] - Disposition Disposition (needs filled in before D/C Order can be placed): Home, Self Care
[2024-02-02 14:55] LABS: Glucose, Body Fluid 124 mg/dL (40-70); LDH,Body Fluid 35 Units/L (Not Establ.)
--- NOTE | 2024-02-02 14:57 | DS.PCM_ITS ---
Providers Date of Admission: 01/31/24 Date of Discharge: 02/02/24 Primary Care Physician: No Primary Care Phys Reason For Visit: DECOMPENSATED CIRRHOSIS Diagnosis Discharge Diagnosis (1) Acute hypokalemia: Status: Acute Code(s): E87.6 - Hypokalemia Plan 1. Hypokalemia-potassium replacement will be given, BMP will be rechecked tomorrow #2 ascites-from suspected undiagnosed liver disease-patient will undergo a paracentesis tomorrow, I placed him on Aldactone today. Total clinical time spent by myself addressing the patient's medical issues, reviewing all of his data, and collaborating with patient's care team: 25 minutes Medications at Discharge Home Medications spironolactone 25 mg tablet 25 mg PO DAILYCM #30 tabs 02/02/24 Hospital Course Operations None Procedures 2-D Echocardiogram and Paracentesis Summary of Care Provided Minutes Spent on Discharge: 31 Hospital Course: This 58-year-old white male was seen in the emergency room at [facility] with a chief complaint of lower extremity edema and abdominal distention. He also complained of some intermittent nausea and vomiting. Patient was here from [place] for and was brought in by family members, he had not been evaluated by physician for several years. He was taking no medications and has a history of daily alcohol usage and cigarette usage. Workup in the emergency room included labs which showed a normal white blood cell count, hemoglobin was also normal, chemistry profile revealed a low potassium at 2.9, sodium was 133, total bilirubin was 1.6, and alkaline phosphatase was elevated at 155. Patient's beta natruretic peptide was elevated at 108, chest x-ray showed no acute findings, abdomen and pelvis CT showed a diffusely heterogeneous the enhancing liver, there is moderate abdominal ascites noted and cholelithiasis. There was a compression deformity of T12 which was not new and visualized on a previous chest x-ray in 2003. Patient was admitted to [facility], he was given potassium replacement and underwent a paracentesis with removal of 4000 cc of fluid from the abdominal cavity. Patient was placed on Aldactone but the patient's blood pressure remained low and so the Aldactone dosage could not be increased. Patient underwent an echocardiogram to rule out any abnormal ejection fraction, the patient's EF was 60%. Patient was seen by PT and OT, it was recommended that he consider a walker but the patient told me that he already had a walker at home. On 02/02/2024, patient was seen and examined: On examination he appeared in good health and spirits. Vital signs as documented. Skin warm and dry and without overt rashes. Neck without JVD, neck was supple, trachea midline, thyroid was normal. Lungs clear bilaterally, normal air movement was noted. Heart exam notable for regular rhythm, normal sounds and absence of murmurs, rubs or gallops. Abdomen unremarkable and without evidence of organomegaly, masses, or abdominal aortic enlargement. Bowel sounds are present, abdomen is not distended. Extremities nonedematous, no cyanosis was noted, no clubbing was noted. Neuro: Cranial nerves II through XII are grossly intact, no focal motor deficits were noted, sensation to light touch and pinprick intact, motor exam 5/5 throughout. Psych: Patient is alert and oriented x3, he does not appear anxious or depressed, he does not appear agitated. On 02/02/2024, patient was discharged home in stable condition, he was instructed to follow-up with [facility] in 2 weeks for follow-up appointment. Medical Records Data Homelessness:: Sheltered Weight / BMI Weight Weight: 76.5 kg Body Mass Index (BMI) 24.1 ABG / Lab / Microbiology Data 02/01/24 05:13 02/02/24 07:03 Laboratory: Laboratory Results - last 24 hr 02/02/24 07:03: Sodium 133 L, Potassium 3.9, Chloride 98, Carbon Dioxide 28.0, Anion Gap 7, BUN 6 L, Creatinine 0.68 L, Estim Creat Clear Calc 122.26, Est GFR (MDRD) Af Amer 153, Est GFR (MDRD) Non-Af 126, BUN/Creatinine Ratio 8.8 L, Glucose 80, Calcium 8.2 L 02/02/24 12:15: Fluid WBC 0.143, Fluid Tot Cell Count 0.164, Fld Polynuclear WBCs # 0.025, Fld Polynuclear WBCs % 17.5, Fluid Mononuclear WBCs 0.118, Fld Mononuclear WBCs % 82.5, Fluid Glucose 124 H, Fluid LDH 35 Radiography Diagnostic Testing: Radiology Impression Venous Doppler Study 01/31/24 21:34 Interpretation Summary Chronic deep vein thrombosis is noted in the right femoral vein, popliteal vein, tibioperoneal trunk vein, posterior tibial mario alberto, peroneal vein. Deep veins of the left lower extremity are patent and compressible segmentally. There is no evidence of left lower extremity deep vein thrombosis. The bilateral great saphenous veins appear patent and compressible segmentally. Ordering Physician: Earnestine Contreras Referring Physician: N/A Performed By: Darrin Ramos RVT Paracentesis Ultrasound 02/02/24 12:00 IMPRESSION: Ultrasound guided paracentesis. Electronically Signed: Bean Espinosa MD at 13:18 EDT , D/C Instructions Discharge Diet: No restrictions (Avoid salt in your food is much as possible) Weight Bearing Status: Full weight bearing Meaningful Use Info Meaningful Use Meaningful Use Diagnoses (Choose all that apply): None applicable Ischemic Stroke Statin Dosing Therapy Reference: STATIN DOSE THERAPY REFERENCE: * Patients > 75 years receive moderate or high dose statin therapy. * Patients 75 years or YOUNGER should receive HIGH intensity statin dose unless contraindicated. You will be required to document reason for non-treatment if statin daily dose does not meet guidelines. HIGH DOSE STATIN THERAPY DAILY Atorvastatin > than or = to 40 mg Rosuvastatin > than or = to 20 mg Amlodipine + Atorvastatin > than or = to 2.5/40 mg Ezetimibe + Simvastatin 10/80 mg Simvastatin 80mg Discharge Plan Admission Admit Date/Time: 01/31/24 21:30 Primary Reason for Your Visit: Ascites, possible cirrhotic liver disease Attending Provider: Edgar Bower Primary Care Provider: Care Physician,No Primary Consulting Providers: Earnestine Contreras Instructions Additional Instructions / Restrictions: Do not drink alcohol Discharge Orders/Prescriptions Prescriptions: New spironolactone 25 mg Tablet 25 mg PO DAILYCM Qty: 30 1RF Referrals / Follow Up: Slim Guadalupe MD [Med Staff - System Engineer] - Soco Perdomo [Non-Staff] - See Referral Note (In 2 weeks, call for an appointment) Care Physician,No Primary [Primary Care Provider] - Disposition Disposition (needs filled in before D/C Order can be placed): Home, Self Care Charges/Coding Visit Charges Inpatient E&M: 14440 Disch Hosp >30min
[2024-02-02 15:09] LABS: Appearance/Body Fluid CLEAR; Auto B Fluid Analyzer BKGD Ct COUNTS W/IN LIMITS (W/IN LIMITS); Color/Body Fluid LT YEL; Source- Body Fluid PARACENTESIS
[2024-02-02 15:21] LABS: Red Cell Count/Body Fluid 19 /mm3
[2024-02-02 15:27] LABS: Lymphocytes 33 %; Monocytes 44 %; Neutrophil (Segs) 23 %
[2024-02-02 15:28] LABS: Body Fluid QC Type(s) BF1Q
--- NOTE | 2024-02-02 15:28 | ECHOLC_ITS ---
Reason For Study: EDEMA, POSSIBLE CIRRHOSIS Procedure This was a limited 2D transthoracic echocardiogram. The study was technically difficult. Limited views were obtained. Contrast injection was performed. Exam performed portable in patient room. Left Ventricle Normal LV size. Left ventricular systolic function is normal. The left ventricular ejection fraction is 60 %. No regional wall motion abnormalities noted. Right Ventricle Normal RV size. Normal systolic function. Atria Normal left atrium. Normal right atrium. Mitral Valve Mitral valve not well visualized. Tricuspid Valve The tricuspid valve is not well visualized. Aortic Valve The aortic valve is not well visualized. Pulmonic Valve The pulmonic valve is not well visualized. Great Vessels Normal aortic root. The pulmonary artery is normal size. Normal inferior vena cava. Pericardium/Pleural No pericardial effusion. Medication Diluted definity 3ml given slow IV push to enhance endocardial definition. MMode/2D Measurements & Calculations LVIDd: 4.0 cm IVSd: 0.80 cm LVOT diam: 2.2 cm LVIDs: 2.2 cm LVPWd: 0.85 cm RVDd: 3.1 cm FS: 44.2 % LVOT area: 3.7 cm2 LAV(MOD-sp4): 32.0 ml LVAd ap4: 26.3 cm2 LVAd ap2: 18.3 cm2 LVLd ap4: 7.2 cm LVLd ap2: 6.8 cm EDV(MOD-sp4): 78.8 ml EDV(MOD-sp2): 39.4 ml EDV(sp4-el): 81.0 ml EDV(sp2-el): 41.8 ml LVAs ap4: 14.5 cm2 LVAs ap2: 10.2 cm2 LVLs ap4: 6.0 cm LVLs ap2: 5.4 cm ESV(MOD-sp4): 28.9 ml ESV(MOD-sp2): 16.1 ml ESV(sp4-el): 29.7 ml ESV(sp2-el): 16.3 ml EF(MOD-sp4): 63.3 % EF(MOD-sp2): 59.2 % EF(sp4-el): 63.3 % SV(MOD-sp4): 49.9 ml SV(MOD-sp2): 23.3 ml SV(sp4-el): 51.3 ml Ao sinus diam: 3.6 cm LA A4 area: 14.6 cm2 LA dimension(2D): 3.1 cm RA A4 area: 15.2 cm2 TAPSE: 2.1 cm Time Measurements MV dec time: 0.21 sec Doppler Measurements & Calculations MV E max mike: 44.5 cm/sec Lat Peak E' Mike: 13.1 cm/sec Med Peak E' Mike: 7.2 cm/sec MV A max mike: 48.3 cm/sec E/E' lat: 3.4 E/E' med: 6.2 MV E/A: 0.92 MV dec slope: 216.5 cm/sec2 Ao V2 max: 90.8 cm/sec LV V1 max: 75.0 cm/sec Ao max P.3 mmHg LV V1 max P.2 mmHg Ao V2 mean: 63.4 cm/sec LV V1 mean P.2 mmHg Ao mean P.7 mmHg LV V1 mean: 52.8 cm/sec Ao V2 VTI: 13.2 cm LV V1 VTI: 11.2 cm AV (velocity ratio): 0.85 MERARI(I,D): 3.1 cm2 MERARI(V,D): 3.1 cm2 SV(LVOT): 41.5 ml ECHO/Echo Limited w/Contrast Interpretation Summary Normal LV size. Left ventricular systolic function is normal. The left ventricular ejection fraction is 60 %. Contrast injection was performed. Ordering Physician: Edgar Bower Performed By: Kaylie Villa RDCS
[2024-02-03 10:25] LABS: Pathologist Comment/Body Fluid Reviewed
[2024-02-04 13:08] LABS: Amylase Body Fluid 9 U/L (.)
== END 2024-02-02 18:58 | disposition home or self-care (01) | DRG 280 ==
LOC: ED 20:20 → MS3 21:38
PROVIDERS: Admitting Provider Family Medicine; Emergency Provider Emergency Medicine; Visit Provider Internal Medicine
DX: K70.31 Alcoholic cirrhosis of liver with ascites (principal); E87.1 Hypo-osmolality and hyponatremia; E87.8 Other disorders of electrolyte and fluid balance, not elsewhere classified; F10.10 Alcohol abuse, uncomplicated; I82.511 Chronic embolism and thrombosis of right femoral vein; E87.6 Hypokalemia; I82.531 Chronic embolism and thrombosis of right popliteal vein; I82.541 Chronic embolism and thrombosis of right tibial vein; I82.551 Chronic embolism and thrombosis of right peroneal vein; F17.210 Nicotine dependence, cigarettes, uncomplicated; Z59.01 Sheltered homelessness
CPT/HCPCS: 36415; 49083; 71045; 74177; 80048; 80053; 80076; 81002; 82040; 82140; 82150; 82945; 83615; 83735; 83880; 84100; 84484; 85025; 85610; 85730; 86706; 86803; 87070; 87075; 87205; 87340; 88108; 88305; 88313; 89050; 93005; 93308; 93970; 94640; 97162; 97165; 97802; 99285; 99406; Q9957; Q9967; A4216; C8924; J2405

== ENCOUNTER → 2024-12-13 | Outpatient (CLI) | payer MEDICAID, SELFPAY ==
[2024-12-13 15:29] LABS: Hematocrit 52.7 % (40-54); Immature Granulocytes Count 0.030 X10^3/uL (0.0-0.0); Mean Corp Hgb Conc 34.5 g/dL (32-36); Mean Corpuscular Volume 102.5 fL (80-94); Mean Platelet Vol. 9.9 fl (6.2-12.0); NRBC Flagged by Analyzer 0 % (0-5); Platelet Count 267 K/mm3 (150-450); RBC Distribution Width CV 13.7 % (11.6-14.6); RBC Distribution Width SD 52.9 fl (35.1-43.9); Red Blood Count 5.14 M/mm3 (4.6-6.2); White Blood Count 7.9 K/mm3 (4.4-11.0)
[2024-12-13 15:45] LABS: Prothrombin Time (Protime)PT. 11.9 SECONDS (11.7-14.9)
[2024-12-13 16:02] LABS: Hemoglobin 18.2 g/dL (13.0-16.5)
[2024-12-13 16:26] LABS: AST(SGOT) 48 U/L (<=37); Alanine Aminotransfer ALT/SGPT 39 U/L (<=46); Albumin, Serum 4.2 g/dL (3.5-5.0); Alkaline Phosphatase 191 U/L (40-129); Anion Gap 11 (5-15); BUN 7 mg/dL (4-19); BUN/Creat Ratio 8.6 RATIO (10-20); Calcium,Total 9.4 mg/dL (7.6-11.0); Carbon Dioxide 26.2 mmol/L (21.0-32.0); Chloride 98 mmol/L (98-108); Globulin 2.8 g/dL (2.2-4.2); Glucose 105 mg/dL (70-99); Potassium 4.2 mmol/L (3.3-5.1)
--- OUTSIDE RECORDS SUMMARY | 2024-12-13 20:41 | XMS RPT_ITS | CCD ---
Author Organization [facility] Care Team Providers Care Occ Therapist Name Role Phone Tourlas, Jus Unavailable Unavailabl e Tourlas, Jus Unavailable Unavailabl e Tourlas, Jus Unavailable Unavailabl e Brandie, Josy D Unavailable Unavailable Tourlas, Jus Unavailable Unavailabl e Brandie, Josy D Unavailable Unavailable Copemish, Josy D Unavailable Unavailable Brandie, Josy D Unavailable Unavailable Tourlas, Jus Unavailable Unavailabl e Newbill, Rubens Guel Unavailable Unavailable Newbill, Rubens Uday Unavailable Unavailable Tourlas, Jus Unavailable Unavailabl e Newbill, Rubens Uday Unavailable Unavailable Newbill, Rubens Uday Unavailable Unavailable Tourlas, Ujs Unavailable Unavailabl e Tourlas, Jus Unavailable Unavailabl e Tourlas, Jus Unavailable Unavailabl e Tourlas, Jus Primary Care Provider Tourthompson, Jus Primary Care Provider LUCERO, JUS Primary Care UnavailMACY Almodovar Attending Unavailabl MACY Bennett Admitting Unavailabl e MACY SANTANA Referring Unavailabl e TOURLAS, JUS Primary Care Unavailabl e Tourlas, Jus Unavailable Unavailabl e Tourlas, Jus Unavailable Unavailabl e JAKUB STYLES Attending Unavailab le TOURLAS, JUS Primary Care UnavailJAKUB López Admitting Unavailab JAKUB Coe Referring Unavailab le TOURLAS, JUS Primary Care UnavailJAKUB López Attending Unavailab le TOURLAS, JUS Primary Care Unavailabl e JAKUB STYLES Attending Unavailab le TOURLAS, JUS Primary Care Unavailninoska e JAKUB STYLES Admitting Unavailab JAKUB Coe Referring Unavailab le TOURLAS, JUS Primary Care Unavailabl e JAKUB STYLES Attending Unavailab le TOURLAS, JUS Primary Care UnavailJAKUB López Admitting Unavailab JAKUB Coe Referring Unavailab le TOURLAS, [facility] Primary Care Unavailabl e Mallapareddi, Oriana Nag S Unavailable [phone] Unavailable Unavailable Lucero IRAHETA [facility] Primary Care Provider Mallapareddi, Oriana Nag S Unavailable Unavail able Alvaro Bah Unavailable Socrates Dietz Unavailable Unavailable Unavailable LUCERO, [facility] Primary Care Unavailabl e ANGELALEIDA RIVERA Attending Unavailable Arnold Carbone Attending Unavailable [facility] Primary Care Unavailable Dr. ALVARO BAH Attending Unavailable Dr. ALVARO BAH Referring Unavailable [facility]DI, [facility] Primary Care Unavailable [facility], [facility] Attending Un[facility] Unavailable [facility], [facility] Referring Unavailable [facility] Primary Care Unavailable [facility], [facility] Primary Care Unavailable Dr. Mery Ambrosio Referring Unavailable Dr. Mery Ambrosio Attending Unavailable [place], [facility] Primary Care Unavailable Dr. Mery Ambrosio Attending Unavailable [facility], [facility] Referring Unavailable [facility]EDDI, [facility] Attending Unavailable M[facility]APAREDDI, [facility] Primary Care Unavailable [facility]APAREDDI, [facility] Referring Unavailable MALLAPAREDDI, [facility] NAG VINIC[facility] Primary Care Unavailable [place]AREDDI, [facility] Referring Unavailable M[place]APAREDDI, [facility] Attending Unavailable MALLAPAREDDI, [facility] Primary Care Unavailable [place]APAREDDI, [facility] Referring Unavailable MALLAPAREDDI, [facility] Attending Unavailable MALLAPAREDDI, [facility] Primary Care Unavailable M[place]APAREDDI, [facility] Referring Unavailable MALLAPAREDDI, [facility] Attending Unavailable MALLAPAREDDI, [facility] Primary Care Unavailable MALLAPAREDDI, [facility] Referring Unavailable MALLAPAREDDI, [facility] Attending Unavailable MALLAPAREDDI, [facility] Attending Unavailable MALLAPAREDDI, [facility] Primary Care Unavailable MALLAPAREDDI, [facility] Primary Care Unavailable MALLAPAREDDI, [facility] Referring Unavailable MALLAPAREDDI, [facility] Attending Unavailable MALLAPAREDDI, [facility] Referring Unavailable MALLAPAREDDI, [facility] Attending Unavailable MALLAPAREDDI, [facility] Primary Care Unavailable MALLAPAREDDI, [facility] Attending Unavailable MALLAPAREDDI, [facility] Referring Unavailable MALLAPAREDDI, [facility] Primary Care Unavailable MALLAPAREDDI, [facility] Attending Unavailable MALLAPAREDDI, [facility] Referring Unavailable MALLAPAREDDI, [facility] Primary Care Unavailable MALLAPAREDDI, [facility] Attending Unavailable MALLAPAREDDI, [facility] Primary Care Unavailable MALLAPAREDDI, [facility] Referring Unavailable MALLAPAREDDI, [facility] Referring Unavailable MALLAPAREDDI, [facility] Attending Unavailable MALLAPAREDDI, [facility] Primary Care Unavailable MALLAPAREDDI, [facility] Primary Care Unavailable MALLAPAREDDI, [facility] Referring Unavailable MALLAPAREDDI, [facility] Attending Unavailable SIPPEY, ARNOLD Attending Unavailable MALLAPAREDDI, [facility] Referring Unavailable M[place]APAREDDI, [facility] Primary Care Unavailable SIPPEY, ARNOLD Attending Unavailable MALLAPAREDDI, [facility] Referring Unavailable MALLAPAREDDI, [facility]AG [facility] Primary Care Unavailable White, Earnestine L Consulting Unavailable Ramakrishna Bower Attending Unavailable White, Earnestine L Admitting Unavailable Care Physician, No Primary Primary Care Unava ilable Tereletstoo, Ramakrishna Consulting Unavailable TerRamakrishna nava Attending Unavailable White, Earnestine L Consulting Unavailable Care Physician, No Primary Primary Care Unava ilable White, Earnestine L Admitting Unavailable White, Earnestine L Referring Unavailable Natanael Escamilla Attending Unavailable Care Physician, No Primary Primary Care Unava ilable Care Physician, No Primary Primary Care Unava ilable Tim Pandya Attending Unavailable White, Earnestine L Attending Unavailable PHYSICIAN, NONE Primary Care Physician Unavailab nirav Morales Rounding Nurse, [place] Unavailable [facility] Primary Care Provide r PODUGU, AMARESHWAR Referring Unavailable PODUGU, AMARESHWAR Primary Care Unavailable PODUGU, AMARESHWAR Referring Unavailable BONNIE CABRALA Referring Unavailable RAMAKRISHNA RIOS Referring Unavaila ble ASIM HOGAN A Referring Unavailable REFERRING, PHY WO ID Primary Care Physician Unav ailable VALENCIA IRAHETA, DR ALFRED Attending Unavail able REFERRING, PHY WO ID Primary Care Unavailable PHYSICIAN, NONE Primary Care Unavailable VALENCIA IRAHETA, DR ALFRED Attending Unavail able VALENCIA IRAHETA, DR ALFRED Attending Unavail able PHYSICIAN, NONE Primary Care Unavailable MACHELLE PATEL MD Consulting Unavailable VALENCIA IRAHETA, DR ALFRED Attending Unavail able REFERRING, PHY WO ID Primary Care Unavailable PHYSICIAN, NONE Primary Care Unavailable VALENCIA IRAHETA, DR ALFRED Consulting Unavail able FABIOLA IRAHETA, TAWNY Gracia Attending Unavailable SCOTTY IRAHETA, DR THOMPSON Admitting Unavailab DR AUBRIE Mc MD Attending Unavail able THORNE DO, GLO Attending Unavailable PHYSICIAN, NONE Primary Care Unavailable Allergies Allergy Classification Reported Allergen(s) Allergy Type Date of Onset Reaction(s) Facility Contrast Media (2 sources) Contrast media Substance Allergy 0 Rash [facility] Work Phone: Unclassified (20 sources) Hair Dye Allergy to substance (finding) [facility] Work Phone: (1 source) Adhesive agent; Translations: [Adhesive] Propensity to adverse reactions to drug (disorder) [facility] Repository (1 source) Chemical dye; Translations: [Chemical dye] Propensity [facility] adverse reactions [facility]) No Known Allergies; Translations: [No Known Allergies] Propensity to adverse reactions to drug (disorder) [facility] Repository (13 sources) Contrast media; Translations: [DYE] Propensity to adverse reactions to drug 0 Rash [facility] (10 sources) Adhesive Tape-Silicones; Translations: [ADHESIVE TAPE-SILICONES] Propensity to adverse reactions to drug 1 [facility] (1 source) Latex Drug allergy (disorder) 4 [facility] Repository (3 sources) Latex; Translations: [LATEX, NATURAL RUBBER] Drug Allergy 2 Rash [facility] Medications Current Medications Medication Drug Class(es) Dates Sig (Normalized) Sig (Original) acetaminophen 325 mg oral tablet (2 sources) Start: 05-19-2020 End: 05-26-2020 take 2 tablets by mouth every six hours as needed acetaminophen (TYLENOL) 325 MG tablet Take 2 (two) tablets (650 mg total) by mouth every 6 (six) hours as needed . 28 tablet 0 05/19/2020 05/26/2020 Active Start: 05-17-2020 End: 05-19-2020 take 1 tablet by mouth every four hours as needed acetaminophen (TYLENOL) tablet 650 mg acetaminophen 325 mg / HYDROcodone bitartrate 5 mg oral tablet (1 source) Opioid Agonist Start: 07-06-2020 End: 07-13-2020 take 1 tablet by mouth every four hours as needed for pain HYDROcodone-acetaminophen (NORCO) 5-325 mg per tablet Indications: Closed nondisplaced intertrochanteric fracture of right femur with routine healing, subsequent encounter Take 1 (one) tablet by mouth every 4 (four) hours as needed for pain . 40 tablet 0 07/06/2020 07/13/2020 Active amitriptyline hydrochloride 10 mg oral tablet (3 sources) Tricyclic Antidepressant Start: 07-08-2024 amitriptyline 10 mg oral tablet Dose : 10 mg = 1 tab(s), Oral, TID, # 90 tab(s), 0 Refill(s) Start Date: 07/08/24 Status: Ordered Quantity: 90.0 Unit: tab(s) Repeat number: 1 aspirin 325 mg oral tablet (2 sources) Platelet Aggregation Inhibitor, Nonsteroidal Anti-inflammatory Drug Start: 05-19-2020 End: 06-18-2020 take 1 tablet by mouth twice daily aspirin 325 MG buffered tablet Take 1 (one) tablet (325 mg total) by mouth 2 (two) times a day . 60 tablet 0 05/19/2020 06/18/2020 Active budesonide 0.25 mg/ml inhalation suspension (4 sources) Corticosteroid Start: 02-22-2024 budesonide 0.5 mg/2 mL inhalation suspension Dose : 0.5 mg = 2 mL, Inhalation, BIDRT, # 120 mL, 0 Refill(s), Pharmacy: [facility]/pharmacy #[id number], 177.8, cm, 02/18/24 0:50:00 EDT, Height, kg, 02/18/24 0:50:00 EDT, Dosing Weight Start Date: 02/22/24 Status: Ordered Quantity: 120.0 Unit: mL Repeat number: 1 DULoxetine 20 mg delayed release oral capsule (2 sources) Serotonin and Norepinephrine Reuptake Inhibitor Start: 08-03-2024 DULoxetine 20 mg oral delayed release capsule Dose : 20 mg = 1 cap(s), Oral, BID, # 180 cap(s), 0 Refill(s) Start Date: 08/03/24 Status: Ordered Quantity: 180.0 Unit: cap(s) Repeat number: 1 famotidine 40 mg oral tablet (4 sources) Histamine-2 Receptor Antagonist Start: 07-08-2024 famotidine 40 mg oral tablet Dose : 40 mg = 1 tab(s), Oral, qHS, 0 Refill(s) Start Date: 07/08/24 Status: Ordered Repeat number: 1 Start: 05-17-2020 End: 05-19-2020 famotidine (PEPCID) tablet 2 0 mg 120 actuat fluticasone propionate 0.044 mg/actuat metered dose inhaler (2 sources) Corticosteroid Start: 08-03-2024 take 1 puff(s) by inhalation once daily as needed for wheezing fluticasone 44 mcg/inh inhalation aerosol 1 puff(s), Inhalation, Daily, PRN Shortness of breath or wheezing, 0 Refill(s) Start Date: 08/03/24 Status: Ordered Repeat number: 1 furosemide 40 mg oral tablet (4 sources) Loop Diuretic Start: 02-22-2024 Lasix 40 mg oral tablet Dose : 40 mg = 1 tab(s), Oral, qDay, # 30 tab(s), 0 Refill(s), Pharmacy: [facility]/pharmacy #[id number], 177.8, cm, 02/18/24 0:50:00 EDT, Height, kg, 02/18/24 0:50:00 EDT, Dosing Weight Start Date: 02/22/24 Status: Ordered Quantity: 30.0 Unit: tab(s) Repeat number: 1 gabapentin 300 mg oral capsule (6 sources) Anti-epileptic Agent Start: 08-19-2012 gabapentin 300 mg oral capsule Dose : 300 mg = 1 cap(s), Oral, BID, # 60 cap(s), 0 Refill(s), Pharmacy: [facility]/pharmacy #[id number], Neuropathy, 177.8, cm, 02/18/24 0:50:00 EDT, Height, 82.6, kg, 02/18/24 0:50:00 EDT, Dosing Weight Start Date: 02/22/24 Status: Ordered Quantity: 60.0 Unit: cap(s) Repeat number: 1 Indication: Polyneuropathy, unspecified lactulose 667 mg/ml oral solution (1 source) Osmotic Laxative Start: 02-22-2024 End: 03-23-2024 take 1 dose by mouth once daily at bedtime lactulose 10 g/15 mL oral syrup Dose : 10 gram(s) = 15 mL, Oral, qHS, X 30 day(s), # 450 mL, 0 Refill(s), 03/23/24 1:31:00 PM EDT, Pharmacy: [facility]/pharmacy #[id number], 177.8, cm, 02/18/24 0:50:00 EDT, Height, kg, 02/18/24 0:50:00 EDT, Dosing Weight Start Date: 02/22/24 Stop Date: 03/23/24 Status: Ordered nitroglycerin 0.4 mg sublingual tablet (12 sources) Nitrate Vasodilator Start: 2012 nitroglycerin sublingual (NITROSTAT) 0.4 mg SL tablet Dissolve 1 tablet under the tongue every 5 minutes as needed for Chest Pain. 1 Bottle of 25 2 2012 Active omeprazole 40 mg delayed release oral capsule (18 sources) Proton Pump Inhibitor Start: 08-17-2024 omeprazole 40 mg oral delayed release capsule Dose : 40 mg = 1 cap(s), Oral, qDay, # 90 cap(s), 0 Refill(s), Pharmacy: [facility]/pharmacy #[id number], 177.8, cm, 08/17/24 9:02:00 EDT, Height, kg, 08/17/24 9:02:00 EDT, Dosing Weight Start Date: 08/17/24 Status: Ordered Quantity: 90.0 Unit: cap(s) Repeat number: 1 Start: 05-19-2020 take 1 capsule by mo ut once daily omeprazole (PRILOSEC) 20 MG capsule Take 20 mg by mouth daily . 0 05/19/2020 Active Start: 05-19-2020 End: 06-18-2020 take 1 tablet by mouth once daily omeprazole (PRILOSEC OTC) 20 MG tablet Take 1 (one) tablet (20 mg total) by mouth daily . 30 tablet 0 05/19/2020 Active polyethylene glycol 3350 32822 mg powder for oral solution (9 sources) Osmotic Laxative Start: 05-19-2020 End: 05-26-2020 polyethylene glycol (GLYCOLAX) 17 gram/dose powder TAKE 17 GRAMS BY MOUTH DAILY FOR SEVEN DAYS 0 05/19/2020 Active propranolol hydrochloride 10 mg oral tablet (2 sources) beta-Adrenergic Amaya Start: 08-03-2024 propranolol 10 mg oral tablet Dose : 10 mg = 1 tab(s), Oral, qDay, # 180 tab(s), 0 Refill(s) Start Date: 08/03/24 Status: Ordered Quantity: 180.0 Unit: tab(s) Repeat number: 1 spironolactone 50 mg oral tablet (4 sources) Aldosterone Antagonist Start: 02-22-2024 Aldactone 50 mg oral tablet Dose : 50 mg = 1 tab(s), Oral, BID, # 60 tab(s), 0 Refill(s), Pharmacy: [facility]/pharmacy #[id number], 177.8, cm, 02/18/24 0:50:00 EDT, Height, kg, 02/18/24 0:50:00 EDT, Dosing Weight Start Date: 02/22/24 Status: Ordered Quantity: 60.0 Unit: tab(s) Repeat number: 1 SUMAtriptan 25 mg oral tablet (3 sources) Serotonin-1b and Serotonin-1d Receptor Agonist Start: 07-08-2024 SUMAtriptan 25 mg oral tablet Dose : 25 mg = 1 tab(s), Oral, qDay, PRN as needed for migraine headache, 1 tab onset , may repeat in 2 hrs. MAX 8 tab(s)/24hrs, # 18 tab(s), 0 Refill(s) Start Date: 07/08/24 Status: Ordered Quantity: 18.0 Unit: tab(s) Repeat number: 1 Completed/Discontinued Medications Medication Drug Class(es) Dates Sig (Normalized) Sig (Original) albuterol 0.83 mg/ml inhalation solution (5 sources) beta2-Adrenergic Agonist Start: 02-22-2024 End: 03-23-2024 take 1 dose by inhalation every six hours as needed albuterol 2.5 mg/3 mL (0.083%) inhalation solution Dose : 2.5 mg = 3 mL, Nebulized, q6hr, PRN Shortness of breath or wheezing, # 30 EA, 0 Refill(s), Pharmacy: [facility]/pharmacy #[id number], 177.8, cm, 02/18/24 0:50:00 EDT, Height, kg, 02/18/24 0:50:00 EDT, Dosing Weight Start Date: 02/22/24 Stop Date: 03/23/24 Status: Ordered Quantity: 30.0 Unit: EA Repeat number: 1 Start: 05-17-2020 End: 05-19-2020 take 2.5 mg by inhalation every four hours as needed albuterol (PROVENTIL) 2.5 mg /3 mL (0.083 %) nebulizer solution 2.5 mg azithromycin 250 mg oral tablet (3 sources) Macrolide Antimicrobial Start: 03-31-2019 take 2 tablets by mouth once daily, then take 1 tablet by mouth, then take 1 tablet by mouth once daily Azithromycin 250 MG Oral Tablet TAKE 2 TABLETS ON DAY 1 THEN TAKE 1 TABLET A DAY FOR 4 DAYS. Quantity: 1 Refills: 0 Jus Franco Start : 31-Mar-2019 Active 6 Tablet Pack ceFAZolin 2000 mg injection (1 source) Cephalosporin Antibacterial Start: 05-18-2020 End: 05-19-2020 take 2000 mg intravenous route every eight hours 2,000 mg, Intravenous, at 100 mL/hr, Every 8 hours, First dose on Thu05/18/20 at 1700, For 2 doses Starting 8 hours after pre-procedure dose x 2 doses. Indication (POST PROCEDURE): Ortho cephalexin 500 mg oral tablet (11 sources) Cephalosporin Antibacterial Start: 2021 End: 08-13-2021 take 1 tablet by mouth every six hours Cephalexin 500 MG Oral Tablet TAKE 1 TABLET EVERY 6 HOURS UNTIL ALL TAKEN. Quantity: 28 Refills: 0 Ordered: 16-Jul-2021 Nica IRAHETA, MPH, Oriana Warren Start : 16-Jul-2021 End : 13-Aug-2021 Complete Start: 04-14-2020 End: 04-21-2020 take 1 capsule by mouth three times daily cephALEXin (KEFLEX) 500 MG capsule Indications: Foreign body in foot, left, initial encounter Take 1 (one) capsule (500 mg total) by mouth 3 (three) times a day for 7 days . 21 capsule 0 04/14/2020 04/21/2020 Active ciprofloxacin 500 mg oral tablet (3 sources) Quinolone Antimicrobial Start: 01-24-2022 End: 02-18-2022 take 1 tablet by mouth once daily Ciprofloxacin HCl - 500 MG Oral Tablet TAKE 1 TABLET EVERY 12 HOURS DAILY. Quantity: 14 Refills: 0 Ordered: 24-Jan-2022 Nica IRAHETA, MPH, Oriana Warren Start : 24-Jan-2022 End : 18-Feb-2022 Complete clobetasol propionate 0.0005 mg/mg topical ointment (1 source) Corticosteroid Start: 09-28-2019 Clobetasol Propionate 0.05 % External Ointment Apply a thin layer to rash on arms twice a day. Do not use longer than 2 weeks. Quantity: 1 Refills: 0 Jus Franco MD Start : 28-Sep-2019 Active 15 GM Tube diphenhydrAMINE hydrochloride 25 mg oral tablet (1 source) Histamine-1 Receptor Antagonist Start: 05-18-2020 End: 05-19-2020 take 25 mg by mouth every eight hours as needed diphenhydrAMINE (BENADRYL) oral solid 25 mg 0.4 ml enoxaparin sodium 100 mg/ml prefilled syringe (1 source) Low Molecular Weight Heparin Start: 05-19-2020 End: 05-19-2020 inject 40 mg by subcutaneous injection once daily 40 mg, Subcutaneous, Daily, First dose on Thu05/19/20 at 0800 Administer in abdomen unless otherwise directed by prescriber. Notify physician if patient refuses. Indication: VTE Prophylaxis hydroCHLOROthiazide 25 mg oral tablet (20 sources) Thiazide Diuretic Start: 09-25-2020 take 1 tablet by mouth once daily hydroCHLOROthiazide 25 MG Oral Tablet Take 1 tablet daily Quantity: 90 Refills: 1 Ordered: 03-Sep-2021 Nica IRAHETA, MPH, Oriana Warren Start : 25-Sep-2020 Active Start: 09-25-2020 take 1 tablet by jean carlos th once daily hydroCHLOROthiazide 12.5 MG Oral Tablet TAKE 1 TABLET DAILY. Quantity: 90 Refills: 1 Ordered: 12-Mar-2021 Nica IRAHETA, MPH, Oriana Warren Start : 25-Sep-2020 Active 1 ml HYDROmorphone hydrochloride 1 mg/ml injection (3 sources) Opioid Agonist Start: 05-18-2020 End: 05-18-2020 0.5 mg, Intravenous, Every 5 min PRN, Pain, Starting Thu05/18/20 at 0931, For 6 doses, PACU (only) [] Give if fentanyl not effective or not ordered. [] Do not give more than 3 mg total. Start: 05-17-2020 End: 05-18-2020 take 0.5 mg intravenous route every three hours as needed HYDROmorphone (DILAUDID) injection 0.5 mg 1 ml ketorolac tromethamine 30 mg/ml injection (1 source) Nonsteroidal Anti-inflammatory Drug, Cyclooxygenase Inhibitor Start: 05-18-2020 End: 05-19-2020 30 mg, Intravenous, Every 6 hours scheduled, First dose on Thu05/18/20 at 1300, For 48 hours methocarbamol 500 mg oral tablet (1 source) Muscle Relaxant Start: 05-17-2020 End: 05-19-2020 methocarbamoL (ROBAXIN) tablet 500 mg naloxone (NARCAN) injection 0.1 mg (1 source) Start: 05-17-2020 End: 05-19-2020 naloxone (NARCAN) injection 0.1 mg naproxen 500 mg oral tablet (1 source) Nonsteroidal Anti-inflammatory Drug Start: 06-07-2019 take 1 tablet by mouth twice daily at mealtime Naproxen 500 MG Oral Tablet TAKE 1 TABLET Twice daily take with food and 8 oz of water Quantity: 28 Refills: 1 Jus Franco MD Start : 07-Jun-2019 Active 24 hr nicotine 0.875 mg/hr transdermal system (1 source) Cholinergic Nicotinic Agonist Start: 05-17-2020 End: 05-19-2020 nicotine (NICODERM CQ) 21 mg/24 hr 1 patch ondansetron 8 mg oral tablet (20 sources) Serotonin-3 Receptor Antagonist Start: 11-19-2021 take 1 tablet by mouth every eight hours as needed Ondansetron HCl - 8 MG Oral Tablet As needed one tablet every 8 hours as needed Quantity: 15 Refills: 0 Ordered: 19-Nov-2021 Nica IRAHETA, MPH, Oriana Warren Start : 19-Nov-2021 Active Start: 10-30-2020 End: 03-12-2021 take 1 tablet by mouth every eight hours as needed Ondansetron HCl - 8 MG Oral Tablet As needed one tablet every 8 hours as needed Quantity: 15 Refills: 0 Ordered: 30-Oct-2020 Nica IRAHETA, MPH, Oriana Warren Start : 30-Oct-2020 End : 12-Mar-2021 Complete Start: 05-17-2020 End: 05-17-2020 ondansetron (ZOFRAN) injecti on 4 mg ondansetron (ZOFRAN-ODT) disintegrating tablet 4 mg (1 source) Start: 05-17-2020 End: 05-19-2020 take 1 tablet by mouth every six hours as needed ondansetron (ZOFRAN-ODT) disintegrating tablet 4 mg oxyCODONE hydrochloride 5 mg oral tablet (8 sources) Opioid Agonist Start: 06-19-2020 End: 06-20-2021 take 1 tablet by mouth every four hours as needed for pain oxyCODONE (Roxicodone) 5 MG immediate release tablet Indications: Closed nondisplaced intertrochanteric fracture of right femur with routine healing, subsequent encounter , Acute pain due to trauma Take 1 (one) tablet (5 mg total) by mouth every 4 (four) hours as needed for pain . 40 tablet 0 06/20/2020 06/22/2020 Discontinued (Reorder) Start: 06-01-2020 End: 06-08-2020 take 1 tablet by mouth every four hours as needed for pain oxyCODONE (Roxicodone) 5 MG immediate release tablet Indications: Closed nondisplaced intertrochanteric fracture of right femur with routine healing, subsequent encounter Take 1 (one) tablet (5 mg total) by mouth every 4 (four) hours as needed for pain . 40 tablet 0 06/01/2020 06/08/2020 Active Start: 05-17-2020 End: 05-24-2020 take 1 tablet by mouth every six hours as needed oxyCODONE (ROXICODONE) 5 MG immediate release tablet Indications: Closed nondisplaced intertrochanteric fracture of femur, unspecified laterality, initial encounter ([facility]) Take 1 (one) tablet (5 mg total) by mouth every 6 (six) hours as needed (Days supply per fill: 5) . 20 tablet 0 05/19/2020 05/24/2020 Active predniSONE 50 mg oral tablet (5 sources) Start: 03-31-2019 take 1 tablet by mouth once daily predniSONE 50 MG Oral Tablet Take 1 tablet daily Quantity: 5 Refills: 0 Jus Franco Start : 31-Mar-2019 Active Start: 08-19-2012 take 1 tablet by jean carlos th three times daily, then take 1 tablet by mouth once daily, then take 1 tablet by mouth once daily predniSONE 20 mg tablet TAKE BY MOUTH ONE(1) TABLET THREE TIMES DAILY FOR 3 DAYS, THEN TAKE ONE(1) TABLET TWO(2) TIMES DAILY FOR 3 DAYS, THEN TAKE ONE(1) TABLET DAILY. 20 tablet 0 08/19/2012 Active pregabalin 50 mg oral capsule (2 sources) Start: 08-03-2024 pregabalin 50 mg oral capsule Dose : 50 mg = 1 cap(s), Oral, BID, 0 Refill(s), 76 Start Date: 08/03/24 Status: Ordered Repeat number: 1 rivaroxaban 20 mg oral tablet (20 sources) Factor Xa Inhibitor Start: 03-11-2021 take 1 tablet by mouth once daily Xarelto 20 MG Oral Tablet Take 1 tablet daily Quantity: 90 Refills: 0 Ordered: 29-Apr-2022 Zach Carvalho MD Start : 11-Mar-2021 Active Start: 03-11-2021 Xarelto 20 MG Oral Tablet Quantity: 30 Refills: 0 Ordered: 11-Mar-2021 DO Start : 11-Mar-2021 Active Start: 11-27-2020 End: 01-25-2021 take 1 tablet by mouth once daily at mealtime Xarelto 20 mg oral tablet ; 1 tab(s) orally once a day Quantity: 30 Refills: 1 Ordered: 06-Nov-2020 Maritza Choudhury Start: 27-Nov-2020 End: 25-Jan-2021 Generic Substitution Allowed Comments: Check with your doctor before becoming .It is very important that you take or use this exactly as directed. Do not skip doses or discontinue unless directed by your doctor.Obtain medical advice before taking any non-prescription drugs as some may affect the action of this medication.Take with food. Start: 11-06-2020 End: 11-26-2020 take 1 tablet by mouth twice daily Xarelto 15 mg oral tablet ; 1 tab(s) orally 2 times a day Quantity: 42 Refills: 0 Ordered: 06-Nov-2020 Maritza Choudhury Start: 06-Nov-2020 End: 26-Nov-2020 Generic Substitution Allowed Comment on above: Check with your doct or before becoming .It is very important that you take or use this exactly as directed. Do not skip doses or discontinue unless directed by your doctor.Obtain medical advice before taking any non-prescription drugs as some may affect the action of this medication.Take with food. sennosides, care home 8.6 mg oral tablet (1 source) Start: End: senna (SENOKOT) tablet 8.6 mg sildenafil 20 mg oral tablet (20 sources) Phosphodiesterase 5 Inhibitor Start: Sildenafil Citrate 20 MG Oral Tablet Take 1-5 tabs 45 min before sexual intercourse. No more than 5 pills in 24 hrs. Quantity: 30 Refills: 1 Ordered: 12-Mar-2021 Nica IRAHETA, MPH, Oriana [facility] Start : 07-Jun-2019 Active 1000 ml sodium chloride 9 mg/ml injection (1 source) Start: End: sodium chloride 0.9% (NS) traMADol hydrochloride 50 mg oral tablet (20 sources) Opioid Agonist Start: 022 take 1 tablet by mouth every six hours as needed for pain traMADol HCl - 50 MG Oral Tablet TAKE 1 TABLET Every 6 hours PRN pain. Do not drive or drink alcohol while on med. Quantity: 45 Refills: 0 Ordered: 03-Sep-2021 Nica IRAHETA, MPH, Oriana [facility] Start : 30-Jul-2021 Active varenicline 0.5 mg oral tablet (4 sources) Partial Cholinergic Nicotinic Agonist Start: 019 take 1 tablet by mouth once, then take 2 tablets by mouth Chantix Starting Month Arnaud 0.5 MG X 11 & 1 MG X 42 Oral Tablet Quantity: 53 Refills: 0 Start : 03-Mar-2019 Active Vitamin B Complex TABS (20 sources) Vitamin B Comple x TABS TAKE 1 TABLET DAILY. Quantity: 0 Refills: 0 Ordered: 29-Jul-2021 DO Active Vitamin B Comple x TABS Quantity: 0 Refills: 0 Ordered: 25-Sep-2020 DO Active Xarelto Starter Pack 15 & 20 MG Oral Tablet Therapy Pack (5 sources) Start: 11-03-2020 End: 03-12-2021 Xarelto Starter Pack 15 & 20 MG Oral Tablet Therapy Pack Quantity: 0 Refills: 0 Ordered: 03-Nov-2020 Alvaro Bah MD Start : 03-Nov-2020 End : 12-Mar-2021 Complete Start: 11-03-2020 Xarelto Starte r Pack 15 & 20 MG Oral Tablet Therapy Pack Quantity: 0 Refills: 0 Ordered: 03-Nov-2020 Alvaro Bah MD Start : 03-Nov-2020 Active Problems Active Problems Problem Classification Problem Date Documented Da te Episodic/Chronic Abdominal hernia (1 source) Diaphragmatic hernia without obstruction or gangrene; Translations: [Diaphragmatic hernia without obstruction or gangrene] Onset: 03-13-2022 Episodic Abdominal pain (10 sources) Flank pain; Translations: [Abdominal pain, other specified site] Onset: 02-20-2022 Episodic Alcohol-related disorders (15 sources) Alcohol dependence; Translations: [Alcohol dependence, uncomplicated] Onset: 05-19-2020 05-19-2020 Chronic Allergic reactions (20 sources) Eczema; Translations: [Contact dermatitis and other eczema, unspecified cause] Episodic Biliary tract disease (6 sources) Gallstone; Translations: [Calculus of gallbladder without mention of cholecystitis, without mention of obstruction] Onset: 03-13-2022 Episodic Chronic obstructive pulmonary disease and bronchiectasis (20 sources) Acute exacerbation of chronic obstructive airways disease; Translations: [Chronic obstructive lung disease] 11-05-2020 Chronic Deficiency and other anemia (1 source) Nutritional anemia; Translations: [Nutritional anemia, unspecified] Episodic Diabetes mellitus without complication (12 sources) Hyperglycemia; Translations: [Other abnormal glucose] Episodic E Codes: Fall (20 sources) Fall in home; Translations: [Unspecified fall, initial encounter] Onset: 05-17-2020 05-17-2020 Episodic Essential hypertension (20 sources) Essential hypertension; Translations: [Unspecified essential hypertension] Chronic External cause codes: Fall (9 sources) Fall in home; Translations: [Fall at home, initial encounter] Onset: 05-17-2020 05-17-2020 Fluid and electrolyte disorders (2 sources) Hypokalemia; Translations: [Hypervolemia] Onset: 02-03-2024 Episodic Genitourinary symptoms and ill-defined conditions (17 sources) Dysuria; Translations: [Dysuria] Episodic Headache; including migraine (1 source) Headache; including migraine; Translations: [Headache, unspecified] Onset: 04-08-2024 Hyperplasia of prostate (1 source) Benign prostatic hyperplasia without lower urinary tract symptoms; Translations: [Benign prostatic hyperplasia without lower urinry tract symp] Onset: 02-20-2022 Chronic Mood disorders (1 source) Depressive disorder; Translations: [Depression, unspecified] Chronic Nausea and vomiting (20 sources) Nausea; Translations: [Nausea alone] Episodic Nutritional deficiencies (1 source) Deficiency of other specified B group vitamins; Translations: [Vitamin B12 deficiency] Onset: 06-22-2024 Episodic Other aftercare (20 sources) Drug therapy finding; Translations: [Long-term (current) use of other medications] Episodic Other diseases of kidney and ureters (1 source) Cyst of kidney, acquired; Translations: [Cyst of kidney, acquired] Onset: 03-13-2022 Episodic Other fractures (20 sources) Compression fracture of thoracic spine; Translations: [Closed fracture of dorsal [thoracic] vertebra without mention of spinal cord injury] Episodic Other injuries and conditions due to external causes (1 source) Foreign body of foot; Translations: [Foreign body in foot, left, initial encounter] Episodic Other liver diseases (1 source) Fatty (change of) liver, not elsewhere classified; Translations: [Fatty (change of) liver, not elsewhere classified] Onset: 03-13-2022 Chronic Other liver diseases (1 source) Other cirrhosis of liver; Translations: [Other cirrhosis of liver (HCC)] Onset: 03-10-2024 Chronic Other liver diseases (1 source) Unspecified cirrhosis of liver; Translations: [Cirrhosis of liver without ascites, unspecified hepatic cirrhosis type (HCC)] Onset: 03-08-2024 Chronic Other liver diseases (1 source) Portal hypertension; Translations: [Portal hypertension (HCC)] Onset: 03-08-2024 Chronic Other liver diseases (20 sources) Elevated liver enzymes level; Translations: [Other nonspecific abnormal serum enzyme levels] Episodic Other lower respiratory disease (20 sources) Rib pain; Translations: [Chest pain, unspecified] Episodic Other lower respiratory disease (1 source) Dyspnea; Translations: [Shortness of breath] Episodic Other male genital disorders (3 sources) Impotence; Translations: [Erectile dysfunction] Chronic Other male genital disorders (20 sources) Male erectile dysfunction, unspecified; Translations: [Erectile dysfunction] Chronic Other nervous system disorders (1 source) Polyneuropathy; Translations: [Polyneuropathy, unspecified] Onset: 02-22-2024 Chronic Other nervous system disorders (2 sources) Acute pain due to injury; Translations: [Acute pain due to trauma] Episodic Other nervous system disorders (6 sources) Abnormal gait; Translations: [Abnormality of gait] Episodic Other non-traumatic joint disorders (20 sources) Pain in elbow; Translations: [Pain in joint, upper arm] Episodic Other non-traumatic joint disorders (20 sources) Chronic ankle pain; Translations: [Pain in joint, ankle and foot] Episodic Other non-traumatic joint disorders (17 sources) Hip pain; Translations: [Pain in joint, pelvic region and thigh] Episodic Other non-traumatic joint disorders (1 source) Bilateral elbow joint pain; Translations: [Bilateral elbow joint pain] Other nutritional; endocrine; and metabolic disorders (6 sources) Hyperbilirubinemia; Translations: [Jaundice, unspecified, not of ] Chronic Other nutritional; endocrine; and metabolic disorders (3 sources) Other disorders of bilirubin metabolism; Translations: [Other disorders of bilirubin metabolism] Onset: 03-13-2022 Chronic Other nutritional; endocrine; and metabolic disorders (2 sources) Other disorders of plasma-protein metabolism, not elsewhere classified; Translations: [Other disorders of plasma protein metabolism] Onset: 03-08-2024 Chronic Other skin disorders (20 sources) Eruption; Translations: [Rash and other nonspecific skin eruption] Episodic Other upper respiratory infections (20 sources) Acute upper respiratory infection; Translations: [Acute upper respiratory infections of unspecified site] Episodic Phlebitis; thrombophlebitis and thromboembolism (20 sources) Deep venous thrombosis; Translations: [Acute venous embolism and thrombosis of unspecified deep vessels of lower extremity] Onset: 07-24-2021 Episodic Residual codes; unclassified (20 sources) Edema of foot; Translations: [Edema] Episodic Skin and subcutaneous tissue infections (20 sources) Cellulitis of lower limb; Translations: [Cellulitis and abscess of leg, except foot] Episodic Spondylosis; intervertebral disc disorders; other back problems (17 sources) Low back pain; Translations: [Lumbago] Episodic Substance-related disorders (1 source) Nicotine dependence; Translations: [Nicotine dependence, cigarettes, uncomplicated] Chronic Unclassified (2 sources) DVT, FROM HOME, NEEDS TELE 11-04-2020 Comment on above: DVT, FROM HOME, NEED S TELE Unclassified (2 sources) 6MOTNH OV WITH LI RLE DVT SCAN FIRST AT 1:00PM 11-06-2020 Comment on above: 6MOTNH OV WITH LI RL E DVT SCAN FIRST AT 1:00PM Unclassified (1 source) [facility] F/U [facility]NA[facility] [place] LES Gardner 11-06-2020 Comment on above: [facility] O K PER JEY Gardner Past or Other Problems Problem Classification Problem Date Documented Da te Episodic/Chronic Administrative/social admission (1 source) Other specified problems related to psychosocial circumstances; Translations: [Interpersonal problem] Onset: 4 Episodic Deficiency and other anemia (2 sources) Anemia, unspecified; Translations: [Anemia, unspecified type] Onset: 4 Episodic Fracture of neck of femur (hip) (16 sources) Closed intertrochanteric fracture; Translations: [Nondisplaced intertrochanteric fracture of right femur, initial encounter for closed fracture] Onset: 0 05-17-2020 Episodic Nonspecific chest pain (2 sources) Chest pain; Translations: [Chest pain, unspecified] Onset: 2 05-05-2012 Episodic Other connective tissue disease (1 source) Other specified soft tissue disorders; Translations: [Other specified soft tissue disorders] Onset: 1 Episodic Other gastrointestinal disorders (3 sources) Other ascites; Translations: [Other ascites] Onset: 4 Episodic Other nervous system disorders (2 sources) Paresthesia of upper limb; Translations: [Anesthesia of skin] Onset: 3 2012 Episodic Other screening for suspected conditions (not mental disorders or infectious disease) (2 sources) Abnormal level of blood mineral; Translations: [Calcium blood decreased] Onset: 4 Episodic NEGATED: Highlighted row has not occurred!Residual codes; unclassified (2 sources) Disease Episodic Results Test Name Value Interpretation Reference Range Facility Final Surgical Pathology Rep shad 08-18-2024 Final Surgical Pathology Report . Pathology Reports Accession: Collected Date/Time: Received Date/Time: Pathologist: [id number] 08/17/2024 10:53 EDT 08/17/2024 14:38 EDT DAMON ATKINSON MD Final Surgical Pathology Report DIAGNOSIS: A. STOMACH, BIOPSY: - MODERATELY ACTIVE CHRONIC GASTRITIS. HELICOBACTER PYLORI ORGANISMS ARE IDENTIFIED BY H&E STAIN B. COLON, HEPATIC FLEXURE, POLYPECTOMY: - TUBULAR ADENOMA C. TRANSVERSE COLON, POLYPECTOMY: - SCANT FRAGMENT OF COLONIC MUCOSA ADMIXED WITH FECAL DEBRIS D. DESCENDING COLON, POLYPECTOMY: - HYPERPLASTIC POLYP CLINICAL INFORMATION: Procedure: ESOPHAGOGASTRODUODENOSCOPY WITH GASTRIC BIOPSY AND COLONOSCOPY WITH POLYPECTOMIES Preoperative diagnosis: ANEMIA Postoperative diagnosis: ANEMIA SPECIMEN: A GASTRIC BX - GASTRITIS, R/O H. PYLORI B HEPATIC FLEXURE POLYP C TRANSVERSE COLON POLYP D DESCNDING COLON POLYP GROSS DESCRIPTION: All parts labelled with patient name and [id number] A. Received in formalin labeled gastric biopsy are 3 crow-brown tissue fragments measuring 0.5 x 0.2 to 0.7 x 0.2 cm. TS-1 B. Received in formalin labeled hepatic flexure polyp are 4 crow-pink tissue fragments measuring 0.2 to 0.5 x 0.2 cm. Fecal debris also identified. TS-1 C. Received in formalin labeled transverse colon polyp is 1 crow-pink tissue fragment measuring 0.5 x 0.2 cm greatest dimension. Basal debris also identified. TS-1 D. Received in formalin labeled descending colon polyp are 2 crow-pink tissue fragments measuring 0.7 x 0.3 and 1.7 x 0.6 cm greatest dimension. Fecal debris also identified. TS-1 Samreen Bush, Grossing Cow Rider/ Dr. Damon Atkinson, Pathologist Performed by Samreen Bush MICROSCOPIC DESCRIPTION: The microscopic examination is performed, except in the case of Gross Only. Verified by Pathology Report verified by [facility] DAMON ATKINSON Sign out Date: 08/18/2024 14:24 Performing Lab: [facility], [address] [place] [address] Pathology Dept Pathology Reports Accession: Collected Date/Time: Received Date/Time: Pathologist: [id number] 08/17/2024 10:53 EDT 08/17/2024 14:38 EDT DAMON ATKINSON MD Disclaimer If ancillary studies were utilized, the following Laboratory Developed Test (LDT) disclaimer will apply: Under CLIA requirements, [facility] is qualified to perform high complexity testing. For all ancillary stains, positive and negative controls stain appropriately. Performance characteristics of immunohistochemical and chromogenic in-situ hybridization tests have been determined by [facility]. These tests are used for clinical purposes, They should not be regarded as investigational or for research. . Normal [facility] .Auto Diffon 08-03-2024 Basophil, Absolute 0.1 10 3/mcL Normal 0.0-0.3 [facility] Comment on above: Performed By: #### G FR, BMP, CBC, ADIFF, ANEU ####[address] [address] Basophils/100 WBC (Bld) 1.3 % Normal 0.0-2.5 [facility] Comment on above: Performed By: #### G FR, BMP, CBC, ADIFF, ANEU ####[address] [address] Eosinophil, Absolute 0.2 10 3/mcL Normal 0.0-0.7 [facility] Comment on above: Performed By: #### G FR, BMP, CBC, ADIFF, ANEU ####[address] [address] Eosinophils/100 WBC (Bld) 3.6 % Normal 0.0-6.0 [facility] Comment on above: Performed By: #### G FR, BMP, CBC, ADIFF, ANEU ####[address] [address] Lymphocyte, Absolute 2.4 10 3/mcL Normal 0.9-4.3 [facility] Comment on above: Performed By: #### G FR, BMP, CBC, ADIFF, ANEU ####[address] [address] Lymphocytes/100 WBC (Bld) 37.9 % Normal 20.0-40.0 [facility] Comment on above: Performed By: #### G FR, BMP, CBC, ADIFF, ANEU ####[address] [address] Monocyte, Absolute 0.6 10 3/mcL Normal 0.1-1.4 [facility] Comment on above: Performed By: #### G FR, BMP, CBC, ADIFF, ANEU ####[address] [address] Monocytes/100 WBC (Bld) 9.7 % Normal 2.0-13.0 [facility] Comment on above: Performed By: #### G FR, BMP, CBC, ADIFF, ANEU ####[address] [address] Neutrophils/100 WBC (Bld) 47.5 % Low 50.0-75.0 [facility] Comment on above: Performed By: #### G FR, BMP, CBC, ADIFF, ANEU ####[address] [address] .GFRon 08-03-2024 Estimated Glomerular Filtration Rate 102 ml/min/1.73sqm Normal [facility] Comment on above: Result Comment: Stages of Chronic Kidney Disease (CKD) Stage Description eGFR(ml/min/1.73 sq.m.) CKD 1 Normal kidney function or >=90 normal kindney function with possible kidney damage (ex. Proteinuria) CKD 2 Kidney damage with mild loss 60-89 of kidney function CKD 3a Mild to moderate loss of kidney 45-59 function CKD 3b Moderate to severe loss of 30-44 of kindey function CKD 4 Severe loss of kidney function 15-29 CKD 5 Kidney failure <15 Note: (go live 2024) the eGFR calculation was updated to the 2020 CKD-EPI creatinine equation without a race factor to calculate the eGFR results. Performed By: #### G FR, BMP, CBC, ADIFF, ANEU ####[address] [address] .NEUABSon 08-03-2024 Neutrophil, Absolute 3.0 10 3/mcL Normal 2.3-8.1 [facility] Comment on above: Performed By: #### G FR, BMP, CBC, ADIFF, ANEU ####[address] [address] BMPon 08-03-2024 BUN/Creatinine Ratio 8.6 ratio Low 10.0-22.0 [facility] Comment on above: Performed By: #### G FR, BMP, CBC, ADIFF, ANEU ####[address] [address] Calcium [Mass/Vol] 9.5 mg/dL Normal 8.7-10.4 [facility] Comment on above: Performed By: #### G FR, BMP, CBC, ADIFF, ANEU ####[address] [address] Chloride [Moles/Vol] 104 mmol/L Normal 98-110 [facility] Comment on above: Performed By: #### G FR, BMP, CBC, ADIFF, ANEU ####[address] [address] CO2 [Moles/Vol] 29 mmol/L Normal 22-32 [facility] Comment on above: Performed By: #### G FR, BMP, CBC, ADIFF, ANEU ####[address] [address] Creatinine [Mass/Vol] 0.81 mg/dL Normal 0.60-1.40 [facility] Comment on above: Result Comment: Test ing performed on [employer] analyzer using enzymatic creatinine methodology. Performed By: #### G FR, BMP, CBC, ADIFF, ANEU ####[place] [address] Electrolyte Balance 5.0 mEq/L Normal 4.0-15.0 [facility] Comment on above: Performed By: #### G FR, BMP, CBC, ADIFF, ANEU ####[place] [address] Glucose [Mass/Vol] 117 mg/dL High 70-110 [facility] Comment on above: Performed By: #### G FR, BMP, CBC, ADIFF, ANEU ####[place] [address] Potassium [Moles/Vol] 4.3 mmol/L Normal 3.5-5.0 [facility] Comment on above: Performed By: #### G FR, BMP, CBC, ADIFF, ANEU ####[place] [address] Sodium [Moles/Vol] 138 mmol/L Normal 136-145 [facility] Comment on above: Performed By: #### G FR, BMP, CBC, ADIFF, ANEU ####[place] [address] Urea nitrogen [Mass/Vol] 7.0 mg/dL Low 8.0-22.0 [facility] Comment on above: Performed By: #### G FR, BMP, CBC, ADIFF, ANEU ####[place] [address] CBCon 08-03-2024 Erythrocyte distribution width (RBC) [Ratio] 15.3 % Normal 11.5-15.5 [facility] Comment on above: Performed By: #### G FR, BMP, CBC, ADIFF, ANEU ####[place] [address] Hematocrit (Bld) [Volume fraction] 46.2 % Normal 40.0-52.0 [facility] Comment on above: Performed By: #### G FR, BMP, CBC, ADIFF, ANEU ####[place] [address] Hgb 15.6 G/dL Normal 13.0-17.5 [facility] Comment on above: Performed By: #### G FR, BMP, CBC, ADIFF, ANEU ####[place] [address] MCH (RBC) [Entitic mass] 32.7 pg Normal 27.0-33.0 [facility] Comment on above: Performed By: #### G FR, BMP, CBC, ADIFF, ANEU ####[place] [address] MCHC 33.8 G/dL Normal 32.0-36.0 [facility] Comment on above: Performed By: #### G FR, BMP, CBC, ADIFF, ANEU ####[place] [address] MCV (RBC) [Entitic vol] 96.6 fL Normal 81.0-100.0 [facility] Comment on above: Performed By: #### G FR, BMP, CBC, ADIFF, ANEU ####[place] [address] Platelet 244 10 3/mcL Normal 150-450 [facility] Comment on above: Performed By: #### G FR, BMP, CBC, ADIFF, ANEU ####[place] [address] Platelet mean volume (Bld) [Entitic vol] 7.6 fL Normal 6.4-10.5 [facility] Comment on above: Performed By: #### G FR, BMP, CBC, ADIFF, ANEU ####[place] [address] RBC 4.78 10 6/mcL Normal 4.50-6.00 [facility] Comment on above: Performed By: #### G FR, BMP, CBC, ADIFF, ANEU ####[place] [address] WBC 6.4 10 3/mcL Normal 4.5-10.8 [facility] Comment on above: Performed By: #### G FR, BMP, CBC, ADIFF, ANEU ####[place] [id number] [place] [address] LABORATORYOrdered By: SYSTEM SYSTEM on 08-03-2024 Basophils (Bld) [#/Vol] 0.1 103/mcL Normal 0.0 - 0.3 10^3/mcL AH Workflow SS Basophils/100 WBC (Bld) 1.3 % Normal 0.0 - 2.5 % AH Workflow SS Calcium [Mass/Vol] 9.5 mg/dL Normal 8.7 - 10. 4 mg/dL ADM SS Chloride [Moles/Vol] 104 mmol/L Normal 98 - 110 mEq/L ADM SS CO2 [Moles/Vol] 29 mmol/L Normal 22 - 32 mEq/L AH ADM SS Creatinine [Mass/Vol] 0.81 mg/dL Normal 0.60 - 1.40 mg/dL AH ADM SS Comment on above: Interpretive Data: T esting performed on [employer] analyzer using enzymatic creatinine methodology. Electrolyte Balance 5.0 mEq/L Normal 4.0 - 15 .0 mEq/L ADM SS Eosinophils (Bld) [#/Vol] 0.2 103/mcL Normal 0.0 - 0.7 10^3/mcL AH Workflow SS Eosinophils/100 WBC (Bld) 3.6 % Normal 0.0 - 6.0 % AH Workflow SS Erythrocyte distribution width (RBC) [Ratio] 15.3 % Normal 11.5 - 15.5 % AH Workflow SS Estimated Glomerular Filtration Rate 102 ml/min/1.73sqm Invalid Interpretation Code Chemistry S Comment on above: Interpretive Data: Stages of Chronic Kidney Disease (CKD) Stage Description eGFR(ml/min/1.73 sq.m.) CKD 1 Normal kidney function or >=90 normal kindney function with possible kidney damage (ex. Proteinuria) CKD 2 Kidney damage with mild loss 60-89 of kidney function CKD 3a Mild to moderate loss of kidney 45-59 function CKD 3b Moderate to severe loss of 30-44 of kindey function CKD 4 Severe loss of kidney function 15-29 CKD 5 Kidney failure <15 Note: (go live 2024) the eGFR calculation was updated to the 2020 CKD-EPI creatinine equation without a race factor to calculate the eGFR results. Glucose [Mass/Vol] 117 mg/dL High 70 - 110 mg/dL AH ADM SS Hematocrit (Bld) [Volume fraction] 46.2 % Normal 40.0 - 52.0 % AH Workflow SS Hemoglobin (Bld) [Mass/Vol] 15.6 G/dL Normal 13.0 - 17.5 G/dL AH Workflow SS Lymphocytes (Bld) [#/Vol] 2.4 103/mcL Normal 0.9 - 4.3 10^3/mcL AH Workflow SS Lymphocytes/100 WBC (Bld) 37.9 % Normal 20.0 - 40.0 % AH Workflow SS MCH (RBC) [Entitic mass] 32.7 pg Normal 27.0 - 33.0 pg AH Workflow SS MCHC 33.8 G/dL Normal 32.0 - 36.0 G/dL AH Workflow SS MCV (RBC) [Entitic vol] 96.6 fL Normal 81.0 - 100.0 fL AH Workflow SS Monocytes (Bld) [#/Vol] 0.6 103/mcL Normal 0.1 - 1.4 10^3/mcL AH Workflow SS Monocytes/100 WBC (Bld) 9.7 % Normal 2.0 - 13.0 % AH Workflow SS Neutrophils (Bld) [#/Vol] 3.0 103/mcL Normal 2.3 - 8.1 10^3/mcL AH Workflow SS Neutrophils/100 WBC (Bld) 47.5 % Low 50.0 - 75.0 % AH Workflow SS Platelet mean volume (Bld) [Entitic vol] 7.6 fL Normal 6.4 - 10.5 fL AH Workflow SS Platelets (Bld) [#/Vol] 244 103/mcL Normal 150 - 450 10^3/mcL AH Workflow SS Potassium [Moles/Vol] 4.3 mmol/L Normal 3.5 - 5.0 mEq/L AH ADM SS RBC (Bld) [#/Vol] 4.78 106/mcL Normal 4.50 - 6.0 0 10^6/mcL AH Workflow SS Sodium [Moles/Vol] 138 mmol/L Normal 136 - 145 mEq/L ADM SS Urea nitrogen [Mass/Vol] 7.0 mg/dL Low 8.0 - 22.0 mg/dL AH ADM SS Urea nitrogen/Creatinine [Mass ratio] 8.6 ratio Low 10.0 - 22.0 ratio AH ADM SS WBC (Bld) [#/Vol] 6.4 103/mcL Normal 4.5 - 10.8 10^3/mcL AH Workflow SS XR SHLDR 4V AP/BERNARD/LAT/OUTLE T LTon 07-28-2024 XR SHLDR 4V AP/BERNARD/LAT/OUTLET LT * * *Final Report* * * DATE OF EXAM: Jul 28 2024 4:59PM RMX [id number] - XR SHLDR 4V AP/BERNARD/LAT/OUTLET LT / PROCEDURE REASON: LT SHOULDER PAIN * * * * Physician Interpretation * * * * XR SHLDR 4V AP/BERNARD/LAT/OUTLET LT Ordering Physician: ASIM HOGAN Clinical Statement: Pain FINDINGS: Postoperative changes status post screw and plate fixation within the clavicle. Hardware is intact. Mild acromioclavicular degenerative change. No fracture or dislocation. No periarticular calcifications. Remote left sixth rib deformity IMPRESSION: No acute osseous abnormality. Chronic postoperative and posttraumatic changes within the clavicle with mild degenerative change. Fire Protection Designer: KIRSTEN Transcribe Date/Time: Jul 30 2024 5:59A Dictated by : CHAUNCEY LUNA MD This examination was interpreted and the report reviewed and electronically signed by: CHAUNCEY LUNA MD on Jul 30 2024 6:00AM EST [id number] [facility] US ABDOMEN FOR ASCITESon US ABDOMEN FOR ASCITES ORIGINAL EXAMINATION: 1. US ABDOMEN FOR ASCITES - LIMITED CLINICAL STATEMENT: Concern for ascites COMPARISON: US Paracentesis 02/22/2024 FINDINGS: ASCITES: Trace amount of ascites is noted throughout the abdomen IMPRESSION: 1. Insufficient ascites for safe paracentesis at this time. This evaluation was performed by Amina Guzman PA-C Interpreted by: Miladis Pond MD Preliminary Report By: Amina Guzman Electronically signed By Miladis Pond MD Dictated Date: 07/08/2024 10:16:37 AM Prelim Date: 07/08/2024 10:18:49 AM Sign Date: 07/08/2024 11:49:06 AM Ordering Provider: AUBRIE BIRMINGHAM [facility] US ELASTOGRAPHY LIVER W/ABD LTDon 07-08-2024 US ELASTOGRAPHY LIVER W/ABD LTD ORIGINAL EXAMINATION: LIVER ELASTOGRAPHY ULTRASOUND07/08/2024 10:28 am RUQ Limited ultrasound abdomen and Hepatic elastography COMPARISON: CT 02/17/2024 TECHNIQUE: This report is based on interpretation of permanently recorded ultrasound images. HISTORY: ORDERING SYSTEM PROVIDED HISTORY: Reason for Exam: CIRRHOSIS, FINDINGS: The gallbladder is moderately distended with multiple calculi. There is no significant wall thickening. Negative sonographic Clayton's sign.. There is no intrahepatic bile duct dilatation. The common duct is 2 mm at the kashmir hepatis. The liver is diffusely coarsened with mild heterogeneity and mildly increased echogenicity. There is nodularity of some of the visualized liver margins. No focal liver abnormality is seen. The main portal vein is patent with normal antegrade blood flow. The pancreas as visualized shows no focal lesions, small portions are obscured by bowel gas artifacts. No ascites is seen in the RUQ. Limited survey images of the right kidney show normal size and echogenicity with no pelvocaliectasis.. Elastography of the liver was performed in the right lobe. Median velocity: 1.57 m/s IQR/median ratio: 7% (Value less than or equal to 15% should be seen to ensure exam adequacy.) IMPRESSION: Indicators of diffuse hepatocellular disease with slightly nodular margins of the liver on some images. No focal liver lesion is seen. No ascites on this study. Gallstones without secondary signs of acute cholecystitis. Liver elastography indicates normal to mild risk of clinically significant liver fibrosis. This may be a false negative result given nodular cirrhotic morphology of the liver on this study and on the CT. Shear Wave Liver Elastography-liver fibrosis staging Median Velocity: Recommendation: 1.35-1.66 m/s (5.48 kPa - 8.29 kPa) Normal to mild risk of clinically significant liver fibrosis : METAVIR Stage F1 1.66-1.77 m/s (8.29 kPa - 9.40 kPa) Raxm-ob-zdyvmodd risk of clinically significant liver fibrosis. (METAVIR Stage F2) 1.77-1.99 m/s (9.40 kPa - 11.9 kPa) Moderate to severe risk of clinically significant liver fibrosis (METAVIR Stage F3) > 1.99 m/s (> 11.9 kPa) Advanced Fibrosis and/or Cirrhosis: (METAVIR Stage F4) Interpreted by: Mel Cherry MD Preliminary Report By: Mel Cherry MD Electronically signed By Mel Cherry MD Dictated Date: 07/08/2024 3:17:43 PM Prelim Date: 07/08/2024 3:21:09 PM Sign Date: 07/08/2024 3:21:09 PM Ordering Provider: AUBRIE BIRMINGHAM [facility] CRP SerPl-mCncon 06-22-2024 CRP [Mass/Vol] mg/L Normal <1.0 [facility] Comment on above: Order Comment: Demetrio ch Type: BLOOD SPECIMEN Ordering Facility: [facility] ([facility] Address: [address] [place] [address] Performed By: #### 2 132-9, 1987-09 #### [facility] CLIA [id number] [address] [place] [address] [place] ESR Westergren method (Bld) [Velocity]on 06-22-2024 ESR (Bld) [Velocity] 5 mm/h Normal 0-20 [facility] Comment on above: Order Comment: Demetrio ch Type: BLOOD SPECIMEN Ordering Facility: [facility] Address: [address] [place] [address] Performed By: #### 3 4528-0 #### [facility] CLIA [id number] [address] [place] [address] [place] Vit B12 SerPl-mCncon 025 Cobalamin (Vitamin B12) [Mass/Vol] 369 pg/mL Normal 193-986 [facility] Comment on above: Order Comment: Demetrio ch Type: BLOOD SPECIMEN Ordering Facility: [facility] ([facility] Address: [address] [place] [address] Performed By: #### 2 132-9, 1987-09 #### [facility] CLIA [id number] [address] [place] [address] [place] [address] [address] BRAIN WO IVCONon 04-08-[address] BRAIN WO IVCON * * *Final Report* * * DATE OF EXAM: Apr 08 2024 11:35AM [facility] 0504 - CT BRAIN WO IVCON / PROCEDURE REASON: Headache, unspecified * * * * Physician Interpretation * * * * CT BRAIN WO IVCON Ordering Physician: JENNIFER JASSO CT SCAN OF HEAD WITHOUT CONTRAST Clinical Statement: Headache, unspecified FINDINGS: The ventricular system is normal size and configuration for patient age. No mass effect or shift. No hemorrhage, mass lesion, or acute infarction. Mild chronic small vessel ischemic change. No acute osseous abnormality. Minimal mucosal thickening within the left maxillary sinus. The paranasal sinuses are otherwise clear. No abnormalities noted at the skull base. Localizer image shows no acute findings. Postoperative changes left clavicle and degenerative change within the cervical spine. IMPRESSION: No acute osseous abnormality. Age related involutional change and mild chronic small vessel ischemic change. Fire Protection Designer: KIRSTEN Transcribe Date/Time: Apr 11 2024 7:44A Dictated by : CHAUNCEY LUNA MD This examination was interpreted and the report reviewed and electronically signed by: CHAUNCEY LUNA MD on Apr 11 2024 7:48AM EST [id number] Normal [facility] Copper (24H U) [Mass/Vol]on 03-10-2024 Copper (24H U) [Mass/Time] <7.0 Normal <40.0 [facility] Comment on above: Order Comment: Speci men Type: URINE SPECIMEN Ordering Facility: [facility] Address: [address] [place] [address] Result Comment: Urin e copper results >100???g/24h may be indicative of Isreal's Disease. This test was developed, and its performance characteristics determined by the [facility] Department of Pathology and Laboratory Medicine. It has not been cleared or approved by the FDA. The [facility] Department of Pathology and Laboratory Medicine is regulated under CLIA as qualified to perform high-complexity testing. This test is used for clinical purposes. It should not be regarded as investigational or for research. Performed By: #### 2 1219-1 #### [facility] CLIA [id number] [address] [facility] CLIA [id number] [facility] [place] [address] [place] PERIOD (HRS) 24 hr Normal [facility] Comment on above: Order Comment: Speci men Type: URINE SPECIMEN Ordering Facility: [facility] Address: [address] [place] [address] Performed By: #### 2 1219-1 #### [facility] CLIA [id number] [address] [place] [facility] CLIA [id number] [address] [place] [address] Specimen volume (24H U) 1.4 L Normal [facility] Comment on above: Order Comment: Speci men Type: URINE SPECIMEN Ordering Facility: [facility] Address: [address] [place] [address] Performed By: #### 2 1219-1 #### [facility] CLIA [id number] [address] [place] [address] [place] [facility] CLIA [id number] [address] [place] [address] [place] CBC W Auto Differential pane l (Bld)on 03-08-2024 Basophils (Bld) [#/Vol] 0.06 10*3/uL Normal <0.11 [facility] Comment on above: Order Comment: Speci men Type: BLOOD SPECIMEN Ordering Facility: [facility] Address: [address] [place] [address] Performed By: #### 5 7021-8 #### [facility] CLIA [id number] [address] [place], [place] [address] [place] Basophils/100 WBC (Bld) 0.8 % Normal [facility] Comment on above: Order Comment: Speci men Type: BLOOD SPECIMEN Ordering Facility: [facility] Address: [address] [place] [address] Performed By: #### 5 7021-8 #### [facility] CLIA [id number] [address] [place] [address] Differential cell count method Nom (Bld) Auto Normal [facility] Comment on above: Order Comment: Speci men Type: BLOOD SPECIMEN Ordering Facility: [facility] Address: [address] [place] [address] Performed By: #### 5 7021-8 #### [facility] CLIA [id number] [address] [place] [address] [place] Eosinophils (Bld) [#/Vol] 0.20 10*3/uL Normal <0.46 [facility] Comment on above: Order Comment: Speci men Type: BLOOD SPECIMEN Ordering Facility: [facility] Address: [address] [place] [address] Performed By: #### 5 7021-8 #### [facility] CLIA [id number] [address] [place] [address] OF [place] Eosinophils/100 WBC (Bld) 2.6 % Normal [facility] Comment on above: Order Comment: Speci men Type: BLOOD SPECIMEN Ordering Facility: [facility] Address: [address] [place] [address] Performed By: #### 5 7021-8 #### [facility] CLIA [id number] [address] [place] [address] [place] Erythrocyte distribution width (RBC) [Ratio] 13.1 % Normal 11.5-15.0 [facility] Comment on above: Order Comment: Speci men Type: BLOOD SPECIMEN Ordering Facility: [facility] Address: [address] [place] [address] Performed By: #### 5 7021-8 #### [facility] CLIA [id number] [facility] [address] Hematocrit (Bld) [Volume fraction] 40.7 % Normal 39.0-51.0 [facility] Comment on above: Order Comment: Speci men Type: BLOOD SPECIMEN Ordering Facility: [facility] Address: [address] [place] [address] Performed By: #### 5 7021-8 #### [facility] CLIA [id number] [address] [place] [address] [place] Hemoglobin (Bld) [Mass/Vol] 13.0 g/dL Normal 13.0-17.0 [facility] Comment on above: Order Comment: Speci men Type: BLOOD SPECIMEN Ordering Facility: [facility] Address: [address] [place] [address] Performed By: #### 5 7021-8 #### [facility] CLIA [id number] [address] [place] [address] [place] Immature granulocytes (Bld) [#/Vol] 10*3/uL Normal <0.10 [facility] Comment on above: Order Comment: Speci men Type: BLOOD SPECIMEN Ordering Facility: [facility] Address: [address] [place] [address] Performed By: #### 5 7021-8 #### [facility] CLIA [id number] [address] [place] [address] [place] Immature granulocytes/100 WBC (Bld) 0.3 % Normal [facility] Comment on above: Order Comment: Speci men Type: BLOOD SPECIMEN Ordering Facility: [facility] Address: [address] [place] [address] Performed By: #### 5 7021-8 #### [facility] CLIA [id number] [address] [place], [place] [address] [place] Lymphocytes (Bld) [#/Vol] 2.15 10*3/uL Normal 1.00-4.00 [facility] Comment on above: Order Comment: Speci men Type: BLOOD SPECIMEN Ordering Facility: [facility] Address: [address] [place] [address] Performed By: #### 5 7021-8 #### [facility] CLIA [id number] [address] [place] [address] [place] Lymphocytes/100 WBC (Bld) 28.1 % Normal [facility] Comment on above: Order Comment: Speci men Type: BLOOD SPECIMEN Ordering Facility: [facility] Address: [address] [place] [address] Performed By: #### 5 7021-8 #### [facility] CLIA [id number] [address] [place] [address] MCH (RBC) [Entitic mass] 34.1 pg High 26.0-34.0 [facility] Comment on above: Order Comment: Speci men Type: BLOOD SPECIMEN Ordering Facility: [facility] Address: [address] [place] [address] Performed By: #### 5 7021-8 #### [facility] CLIA [id number] [address] [place] [address] MCHC (RBC) [Mass/Vol] 31.9 g/dL Normal 30.5-36.0 [facility] Comment on above: Order Comment: Speci men Type: BLOOD SPECIMEN Ordering Facility: [facility] Address: [address] [place] [address] Performed By: #### 5 7021-8 #### [facility] CLIA [id number] [address] [place] [address] [place] MCV (RBC) [Entitic vol] 106.8 fL High 80.0-100.0 [facility] Comment on above: Order Comment: Speci men Type: BLOOD SPECIMEN Ordering Facility: [facility] Address: [address] [place] [address] Performed By: #### 5 7021-8 #### [facility] CLIA [id number] [address] [place] [address] OF [place] Monocytes (Bld) [#/Vol] 0.63 10*3/uL Normal <0.87 [facility] Comment on above: Order Comment: Speci men Type: BLOOD SPECIMEN Ordering Facility: [facility] Address: [address] [place] [address] Performed By: #### 5 7021-8 #### [facility] CLIA [id number] [address] [place] [address] Monocytes/100 WBC (Bld) 8.2 % Normal [facility] Comment on above: Order Comment: Speci men Type: BLOOD SPECIMEN Ordering Facility: [facility] Address: [address] [place] [address] Performed By: #### 5 7021-8 #### [facility] CLIA [id number] [address] [place] [address] [place] Neutrophils (Bld) [#/Vol] 4.58 10*3/uL Normal 1.45-7.50 [facility] Comment on above: Order Comment: Speci men Type: BLOOD SPECIMEN Ordering Facility: [facility] Address: [address] [place] [address] Performed By: #### 5 7021-8 #### [facility] CLIA [id number] [address] [place] [address] [place] Neutrophils/100 WBC (Bld) 60.0 % Normal [facility] Comment on above: Order Comment: Speci men Type: BLOOD SPECIMEN Ordering Facility: [facility] Address: [address] [place] [address] Performed By: #### 5 7021-8 #### [facility] CLIA [id number] [address] [place] [address] [place] Platelet mean volume (Bld) [Entitic vol] 8.8 fL Low 9.0-12.7 [facility] Comment on above: Order Comment: Speci men Type: BLOOD SPECIMEN Ordering Facility: [facility] Address: [address] [place] [address] Performed By: #### 5 7021-8 #### [facility] CLIA [id number] [address] [place] [address] [place] Platelets (Bld) [#/Vol] 412 10*3/uL High 150-400 [facility] Comment on above: Order Comment: Speci men Type: BLOOD SPECIMEN Ordering Facility: [facility] Address: [address] [place] [address] Performed By: #### 5 7021-8 #### [facility] CLIA [id number] [address] [place] [address] [facility] OF [place] RBC (Bld) [#/Vol] 3.81 10*6/uL Low 4.20-6.00 [facility] Comment on above: Order Comment: Speci men Type: BLOOD SPECIMEN Ordering Facility: [facility] Address: [address] [place] [address] Performed By: #### 5 7021-8 #### [facility] CLIA [id number] [address] [place] [address] [facility] WBC (Bld) [#/Vol] 7.64 10*3/uL Normal 3.70-11.00 [facility] Comment on above: Order Comment: Speci men Type: BLOOD SPECIMEN Ordering Facility: [facility] Address: [address] [place] [address] Performed By: #### 5 7021-8 #### [facility] CLIA [id number] [address] [place] [address] [facility] Comprehensive metabolic 2000 panelon 03-08-2024 Albumin [Mass/Vol] 2.8 g/dL Low 3.2-5.0 [facility] Comment on above: Order Comment: Speci men Type: BLOOD SPECIMEN Ordering Facility: [facility] Address: [address] [place] [address] Performed By: #### 2 132-9, 32940-2 #### [facility] CLIA [id number] [address] [place] [address] [place] ALP [Catalytic activity/Vol] 164 U/L High 45-117 [facility] Comment on above: Order Comment: Speci men Type: BLOOD SPECIMEN Ordering Facility: [facility] Address: [address] [place] [address] Performed By: #### 2 132-9, 41769-7 #### [facility] CLIA [id number] [address] [place] [address] [place] ALT [Catalytic activity/Vol] 12 U/L Low 13-61 [facility] Comment on above: Order Comment: Speci dima Type: BLOOD SPECIMEN Ordering Facility: [facility] Address: [address] [place] [address] Result Comment: Resu lts may be falsely depressed after the administration of Sulfasalazine and/or Sulfapyridine. Performed By: #### 2 132-9, 71971-4 #### [facility] CLIA [id number] [address] [place] [address] [place] Anion gap [Moles/Vol] 5 mmol/L Normal 5-16 [facility] Comment on above: Order Comment: Speci men Type: BLOOD SPECIMEN Ordering Facility: [facility] Address: [address] [place] [address] Performed By: #### 2 132-9, 32617-2 #### [facility] CLIA [id number] [address] [place] [address] [place] AST [Catalytic activity/Vol] 26 U/L Normal 8-34 [facility] Comment on above: Order Comment: Speci dima Type: BLOOD SPECIMEN Ordering Facility: [facility] Address: [address] [place] [address] Result Comment: Resu lts may be falsely depressed after the administration of Sulfasalazine and/or Sulfapyridine. Performed By: #### 2 132-9, 89298-4 #### [facility] CLIA [id number] [address] [place] [address] [place] Bilirubin [Mass/Vol] 0.5 mg/dL Normal 0.2-1.0 [facility] Comment on above: Order Comment: Speci men Type: BLOOD SPECIMEN Ordering Facility: [facility] Address: [address] [place] [address] Performed By: #### 2 132-9, 88073-6 #### [facility] CLIA [id number] [address] [place] [address] [place] Calcium [Mass/Vol] 10.1 mg/dL Normal 8.5-10.5 [facility] Comment on above: Order Comment: Rishii men Type: BLOOD SPECIMEN Ordering Facility: [facility] Address: [address] [place] [address] Performed By: #### 2 132-9, 11500-5 #### [facility] CLIA [id number] [address] [place], [place] [address] [place] Chloride [Moles/Vol] 102 mmol/L Normal 98-107 [facility] Comment on above: Order Comment: Speci men Type: BLOOD SPECIMEN Ordering Facility: [facility] Address: [address] [place] [address] Performed By: #### 2 132-9, 39124-2 #### [facility] CLIA [id number] [address] [place], [place] [address] [place] CO2 [Moles/Vol] 30 mmol/L Normal 21-32 [facility] Comment on above: Order Comment: Speci men Type: BLOOD SPECIMEN Ordering Facility: [facility] Address: [address] [place] [address] Performed By: #### 2 132-9, 49798-4 #### [facility] CLIA [id number] [address] [place] [address] [place] Creatinine [Mass/Vol] 0.75 mg/dL Normal 0.50-1.40 [facility] Comment on above: Order Comment: Speci men Type: BLOOD SPECIMEN Ordering Facility: [facility] Address: [address] [place] [address] Result Comment: Melissa ents receiving either N-Acetylcysteine (NAC) or Metamizole prior to venipuncture, may have falsely depressed results. Performed By: #### 2 132-9, 12525-5 #### [facility] CLIA [id number] [address] [place] [address] [place] Creatinine and Glomerular filtration rate.predicted panel (S/P/Bld) 105 mL/min/1.73m??? Normal >=60 [facility] Comment on above: Order Comment: Speci men Type: BLOOD SPECIMEN Ordering Facility: [facility] Address: [address] [place] [address] Result Comment: Marleny mated Glomerular Filtration Rate (eGFR) is calculated using the 2020 CKD-EPI creatinine equation. This equation utilizes serum creatinine, sex, and age as parameters. The creatinine assay has traceable calibration to isotope dilution-mass spectrometry. Refer to KDIGO guidelines for clinical interpretation. In patients with unstable renal function, e.g. those with acute kidney injury, the eGFR may not accurately reflect actual GFR. Performed By: #### 2 132-9, 67928-6 #### [facility] CLIA [id number] [address] [place] [address] [place] Glucose [Mass/Vol] 106 mg/dL High 70-100 [facility] Comment on above: Order Comment: Demetrio ch Type: BLOOD SPECIMEN Ordering Facility: [facility] Address: [address] [place] [address] Result Comment: The [place] [employer] (ADA) provides guidance for cutoff values for fasting glucose and random glucose. The ADA defines fasting as no caloric intake for at least 8 hours. Fasting plasma glucose results between 100 to 125 mg/dL indicate increased risk for diabetes (prediabetes). Fasting plasma glucose results greater than or equal to 126 mg/dL meet the criteria for diagnosis of diabetes. In the absence of unequivocal hyperglycemia, results should be confirmed by repeat testing. In a patient with classic symptoms of hyperglycemia or hyperglycemic crisis, random plasma glucose results greater than or equal to 200 mg/dL meet the criteria for diagnosis of diabetes. Reference: Standards of Medical Care in Diabetes 2016, [place] [employer]. Diabetes Care. 2016.39(Suppl 1). Results may be falsely elevated after the administration of Sulfapyridine. Results may be falsely depressed after the administration of Sulfasalazine. Performed By: #### 2 132-9, #### [facility] CLIA [id number] [address] [place] [address] [place] Potassium [Moles/Vol] 5.0 mmol/L Normal 3.5-5.1 [facility] Comment on above: Order Comment: Demetrio ch Type: BLOOD SPECIMEN Ordering Facility: [facility] Address: [address] [place] [address] Performed By: #### 2 132-9, 83593-9 #### [facility] CLIA [id number] [address] [place] [address] [place] Protein [Mass/Vol] 6.8 g/dL Normal 6.0-8.5 [facility] Comment on above: Order Comment: Rishii dima Type: BLOOD SPECIMEN Ordering Facility: [facility] Address: [address] [place] [address] Performed By: #### 2 132-9, 97025-9 #### [facility] CLIA [id number] [address] [place] [address] [place] Sodium [Moles/Vol] 137 mmol/L Normal 136-145 [facility] Comment on above: Order Comment: Rishii men Type: BLOOD SPECIMEN Ordering Facility: [facility] Address: [address] [place] [address] Performed By: #### 2 132-9, 09418-2 #### [facility] CLIA [id number] [address] [place] [address] [place] Urea nitrogen [Mass/Vol] 10 mg/dL Normal 7-26 [facility] Comment on above: Order Comment: Rishii men Type: BLOOD SPECIMEN Ordering Facility: [facility] Address: [address] [place] [address] Performed By: #### 2 132-9, 55541-3 #### [facility] CLIA [id number] [address] [place] [address] [place] Folate SerPl-mCncon 03-08-20 24 Folate [Mass/Vol] 3.4 ng/mL Normal >3.0 [facility] Comment on above: Order Comment: Rishii men Type: BLOOD SPECIMEN Ordering Facility: [facility] Address: [address] [place] [address] Performed By: #### 2 284-8 #### [facility] CLIA [id number] [address] [place] [address] [place] PT panel Coag (PPP)on 2023 INR Coag (PPP) [Relative time] 0.9 {INR} Normal 0.9-1.3 [facility] Comment on above: Order Comment: Rishii dima Type: BLOOD SPECIMEN Ordering Facility: [facility] Address: [address] [place] [address] Result Comment: Linda min K Antagonist (VKA) Therapeutic Range: INR 2 to 3 (Target INR of 2.5) Note: For patients treated with VKA drugs, such as warfarin, the [employer] 2012 Guideline recommends a therapeutic INR range of 2 to 3 (target INR of 2.5). This recommendation includes high-risk patients with antiphospholipid syndrome with previous arterial or venous thromboembolism, current-generation mechanical or bioprosthetic aortic heart valve replacement. Note: Patients with mechanical aortic valve replacement and additional risk factors for thromboembolic events (atrial fibrillation, previous thromboembolism, LV dysfunction, hypercoagulable conditions) or an older generation mechanical AVR (i.e., ball in-Cage) or any mechanical MVR should have a INR therapeutic range of 2.5 to 3.5 (target INR of 3). Richie CARBAJAL, et al. Chest 2012, 141:7S-47S Dash DE LA FUENTE et al. [facility] 2017, 70: 252-289 Performed By: #### 3 4528-0 #### [facility] CLIA [id number] [address] [place] [address] [place] PT Coag (PPP) [Time] 10.0 s Normal 9.7-13.0 [facility] Comment on above: Order Comment: Demetrio ch Type: BLOOD SPECIMEN Ordering Facility: [facility] Address: [address] [place] [address] Performed By: #### 3 4528-0 #### [facility] CLIA [id number] [address] [place] [address] [place] Vit B12 SerPl-ncon 024 Cobalamin (Vitamin B12) [Mass/Vol] 472 pg/mL Normal 193-986 [facility] Comment on above: Order Comment: Demetrio ch Type: BLOOD SPECIMEN Ordering Facility: [facility] Address: [address] [place] [address] Performed By: #### 2 132-9, 30965-1 #### [facility] CLIA [id number] [address] [place] [address] [place] ENDOon 02-25-2024 TTG Ab (IgA) <4.0 Normal <=3.9 [facility] Comment on above: Result Comment: Jr ctive 12/15/2022: Evaluation of Transglutaminase Ab (IgA) results: Negative: Less than 4.0 Weak positive: 4.0 to 10.0 Positive: Greater than 10.0 Transglutaminase Ab is present in approximately 95% to 100% of patients with celiac disease and 80% of patients with dermatitis herpetiformis. The antibody is rarely found in other conditions. Transglutaminase Ab levels will decrease or increase depending on the removal or reintroduction of gluten into the diet. Patients who are IgA deficient develop celiac disease more frequently than individuals who have an intact IgA system. Therefore, gliadin and transglutaminase IgA antibodies may be absent in patients with celiac disease. IgG antibodies to gliadin are especially helpful in IgA deficient patients. These test results were obtained with the [employer] QUANTA Lite R-tTG IgA FEMI. R-tTG IgA values obtained with different manufacturers' assay methods may not be used interchangeably. Performed By: #### U A #### [place] [address] AATon 02-23-2024 F-9-Czojbzatlas 163 mg/dL Normal 101-187 [facility] Comment on above: Result Comment: Perf ormed At: [facility] [address] [id number] Niko Chavez PhD Ph:[phone] Performed By: #### U A #### [place] [address] AHAVGon 02-23-2024 Hepatitis A Antibody IgG Positive Normal [facility] Comment on above: Result Comment: Cons istent with serological evidence of immunity to Hepatitis A Virus. Performed By: [facility] [address] [place] [address] Papier Mache Molder: Teddy Rodas III#: [id number] Performed By: #### U A #### [place] [address] ANAIFSon 02-23-2024 Antinuclear Ab Screen Negative Normal Negative [facility] Comment on above: Result Comment: Anti -nuclear antibody test is used as an aid in diagnosis of systemic autoimmune diseases. Where positive and clinically warranted, follow-up using disease-specific testing is recommended. Low positive titers are not uncommon with advanced age, certain chronic infections, and malignancies among others. Test methodology: Indirect fluorescence immunoassay (IFA) using HEp-2 cells. Performed By: [facility] [facility] [address] [place] [address] Papier Mache Molder: Carlos Tidwell III, M.D. CLIA#: [id number] Performed By: #### U A #### [place] [address] Performed By: #### A FPS, FERR, HCV1, HIV, ANAIFS, HBSAG, FES ####[place] [id number] BFCTon 02-23-2024 Cells Counted BF 100 [facility] Comment on above: Performed By: #### U A #### [place] [id number] Lymphocytes/100 WBC (Bld) 52 % [facility] Comment on above: Performed By: #### U A #### [address] [address] Mesothelial Cell % BF 11 % [facility] Comment on above: Performed By: #### U A #### [address] [address] Mononuclear cell % BF 5 % [facility] Comment on above: Performed By: #### U A #### [place] [id number] Neutrophils/100 WBC (Bld) 32 % [facility] Comment on above: Performed By: #### U A #### [place] [id number] BFPRon 02-23-2024 Body Fluid Path Review [facility] Comment on above: Order Comment: Added by Discern Result Comment: Nega tive for malignant cells. (This evaluation is based on a screening review of one cytospin slide prepared primarily for differential cell count; if clinical index of suspicion is high, Cytology evaluation is recommended, as clinically indicated) Electronically signed by: LAURA COLON 02.23.2024 10:21 EDT Performed By: #### U A #### [place] [address] Non-Electrifier Operator Cytology Reporton Non-Electrifier Operator Cytology Report . Pathology Reports Accession: Collected Date/Time: Received Date/Time: Pathologist: [id number] 02/22/2024 12:06 EDT 02/22/2024 14:00 EDT LAURA COLON MD Non-Electrifier Operator Cytology Report CLINICAL INFORMATION: Ascites DIAGNOSTIC CATEGORY: NEGATIVE FOR MALIGNANCY. SPECIMEN: Peritoneal fluid GROSS DESCRIPTION: # of Blocks: 1 # of Monolayers: 1 Volume (ml) 50 Color: fresh clear yellow Electronically Signed by Pathology Report verified by [facility] Screened by: TASHI MUNOZ Electronically signed by LAURA COLON Sign-Out Date: 02/23/2024 10:21 Performing Lab: [address] Pathology Dept Disclaimer If ancillary studies were utilized, the following Laboratory Developed Test (LDT) disclaimer will apply: Under CLIA requirements, [facility] is qualified to perform high complexity testing. For all ancillary stains, positive and negative controls stain appropriately. Performance characteristics of immunohistochemical and chromogenic in-situ hybridization tests have been determined by [facility]. These tests are used for clinical purposes, They should not be regarded as investigational or for research. Normal [facility] .Auto Diffon 02-22-2024 Basophil, Absolute 0.0 10 3/mcL Normal 0.0-0.3 [facility] Comment on above: Performed By: #### C BC, ANEU, GFR, ADIFF, BMP ####[place] [id number] Basophils/100 WBC (Bld) 0.7 % Normal 0.0-2.5 [facility] Comment on above: Performed By: #### C BC, ANEU, GFR, ADIFF, BMP ####[place] [address] [place] [address] Eosinophil, Absolute 0.1 10 3/mcL Normal 0.0-0.7 [facility] Comment on above: Performed By: #### C BC, ANEU, GFR, ADIFF, BMP ####[address] [address] Eosinophils/100 WBC (Bld) 1.5 % Normal 0.0-6.0 [facility] Comment on above: Performed By: #### C BC, ANEU, GFR, ADIFF, BMP ####[address] [address] Lymphocyte, Absolute 1.6 10 3/mcL Normal 0.9-4.3 [facility] Comment on above: Performed By: #### C BC, ANEU, GFR, ADIFF, BMP ####[address] [address] Lymphocytes/100 WBC (Bld) 22.8 % Normal 20.0-40.0 [facility] Comment on above: Performed By: #### C BC, ANEU, GFR, ADIFF, BMP ####[address] [address] Monocyte, Absolute 0.7 10 3/mcL Normal 0.1-1.4 [facility] Comment on above: Performed By: #### C BC, ANEU, GFR, ADIFF, BMP ####[address] [address] Monocytes/100 WBC (Bld) 9.7 % Normal 2.0-13.0 [facility] Comment on above: Performed By: #### C BC, ANEU, GFR, ADIFF, BMP ####[address] [address] Neutrophils/100 WBC (Bld) 65.3 % Normal 50.0-75.0 [facility] Comment on above: Performed By: #### C BC, ANEU, GFR, ADIFF, BMP ####[address] [address] .GFRon 02-22-2024 GFR >[address] [facility] Comment on above: Result Comment: GFR Population mean for , Non- Americans Ages 20-29 = 116 mL/min/1.73 sq.m. Ages 30-39 = 107 mL/min/1.73 sq.m. Ages 40-49 = 99 mL/min/1.73 sq.m. Ages 50-59 = 93 mL/min/1.73 sq.m. Ages 60-69 = 85 mL/min/1.73 sq.m. Ages 70+ = 75 mL/min/1.73 sq.m. Chronic Kidney Disease: Less than 60 mL/min/1.73 square meters End Stage Renal Disease: Less than 15 mL/min/1.73 square meters Performed By: #### C BC, ANEU, GFR, ADIFF, BMP ####[place] [address] GFR Non- >[address] [facility] Comment on above: Result Comment: GFR Population mean for , Non- Americans Ages 20-29 = 116 mL/min/1.73 sq.m. Ages 30-39 = 107 mL/min/1.73 sq.m. Ages 40-49 = 99 mL/min/1.73 sq.m. Ages 50-59 = 93 mL/min/1.73 sq.m. Ages 60-69 = 85 mL/min/1.73 sq.m. Ages 70+ = 75 mL/min/1.73 sq.m. Chronic Kidney Disease: Less than 60 mL/min/1.73 square meters End Stage Renal Disease: Less than 15 mL/min/1.73 square meters Performed By: #### C BC, ANEU, GFR, ADIFF, BMP ####[place] [address] .NEUABSon 02-22-2024 Neutrophil, Absolute 4.6 10 3/mcL Normal 2.3-8.1 [facility] Comment on above: Performed By: #### C BC, ANEU, GFR, ADIFF, BMP ####[place] [address] ALBBFon 02-22-2024 Albumin Body Fluid Spec Type Peritoneal fl Normal [facility] Comment on above: Result Comment: The reference interval(s) and other method performance specifications have not been established for this body fluid. The test result must be integrated into the clinical content for interpretation. Performed By: #### U A #### [place] [address] Albumin BF <0.[address] [facility] Comment on above: Performed By: #### U A #### [address] [address] BFCTon 02-22-2024 Body Fluid Source Peritoneal fl Normal [facility] Comment on above: Result Comment: Refe rence ranges have not been established for this body fluid. The test results must be integrated into the clinical context for interpretation. Performed By: #### U A #### [address] [address] Total Nucleated Cells 351 /mm3 Normal [facility] Comment on above: Performed By: #### U A #### [address] [address] BMPon 02-22-2024 BUN/Creatinine Ratio 10.5 ratio Normal 10.0-22.0 [facility] Comment on above: Performed By: #### C BC, ANEU, GFR, ADIFF, BMP ####[address] [address] Calcium [Mass/Vol] 8.2 mg/dL Low 8.7-10.4 [facility] Comment on above: Performed By: #### C BC, ANEU, GFR, ADIFF, BMP ####[address] [address] Chloride [Moles/Vol] 100 mmol/L Normal 98-110 [facility] Comment on above: Performed By: #### C BC, ANEU, GFR, ADIFF, BMP ####[address] [address] CO2 [Moles/Vol] 32 mmol/L Normal 22-32 [facility] Comment on above: Performed By: #### C BC, ANEU, GFR, ADIFF, BMP ####[place] [id number] Creatinine [Mass/Vol] 0.76 mg/dL Normal 0.60-1.40 [facility] Comment on above: Result Comment: Test ing performed on [employer] analyzer using enzymatic creatinine methodology. Performed By: #### C BC, ANEU, GFR, ADIFF, BMP ####[place] [address] Electrolyte Balance 3.0 mEq/L Low 4.0-15.0 [facility] Comment on above: Performed By: #### C BC, ANEU, GFR, ADIFF, BMP ####[place] [address] Glucose [Mass/Vol] 83 mg/dL Normal 70-110 [facility] Comment on above: Performed By: #### C BC, ANEU, GFR, ADIFF, BMP ####[place] [address] Potassium [Moles/Vol] 4.4 mmol/L Normal 3.5-5.0 [facility] Comment on above: Performed By: #### C BC, ANEU, GFR, ADIFF, BMP ####[place] [address] Sodium [Moles/Vol] 135 mmol/L Low 136-145 [facility] Comment on above: Performed By: #### C BC, ANEU, GFR, ADIFF, BMP ####[place] [address] Urea nitrogen [Mass/Vol] 8.0 mg/dL Normal 8.0-22.0 [facility] Comment on above: Performed By: #### C BC, ANEU, GFR, ADIFF, BMP ####[place] [address] CBCon 02-22-2024 Erythrocyte distribution width (RBC) [Ratio] 13.9 % Normal 11.5-15.5 [facility] Comment on above: Performed By: #### C BC, ANEU, GFR, ADIFF, BMP ####[place] [address] Hematocrit (Bld) [Volume fraction] 34.4 % Low 40.0-52.0 [facility] Comment on above: Performed By: #### C BC, ANEU, GFR, ADIFF, BMP ####[place] [address] Hgb 11.8 G/dL Low 13.0-17.5 [facility] Comment on above: Performed By: #### C BC, ANEU, GFR, ADIFF, BMP ####[place] [address] MCH (RBC) [Entitic mass] 37.5 pg High 27.0-33.0 [facility] Comment on above: Performed By: #### C BC, ANEU, GFR, ADIFF, BMP ####[place] [address] MCHC 34.4 G/dL Normal 32.0-36.0 [facility] Comment on above: Performed By: #### C BC, ANEU, GFR, ADIFF, BMP ####[place] [address] MCV (RBC) [Entitic vol] 109.1 fL High 81.0-100.0 [facility] Comment on above: Performed By: #### C BC, ANEU, GFR, ADIFF, BMP ####[place] [address] Platelet 316 10 3/mcL Normal 150-450 [facility] Comment on above: Performed By: #### C BC, ANEU, GFR, ADIFF, BMP ####[place] [address] Platelet mean volume (Bld) [Entitic vol] 8.1 fL Normal 6.4-10.5 [facility] Comment on above: Performed By: #### C BC, ANEU, GFR, ADIFF, BMP ####[place] [address] RBC 3.15 10 6/mcL Low 4.50-6.00 [facility] Comment on above: Performed By: #### C BC, ANEU, GFR, ADIFF, BMP ####[place] [address] WBC 7.0 10 3/mcL Normal 4.5-10.8 [facility] Comment on above: Performed By: #### C BC, ANEU, GFR, ADIFF, BMP ####[place] [address] CERULon 09-30-2024 Ceruloplasmin 12.0 mg/dL Low 22.0-58.0 [facility] Comment on above: Performed By: #### E NDO, CARLOS, ADIFF, SMUSC, ANAIFS, CERUL, BMP, CBC, FERR, HEPAC, GFR, IGG, HBSAB, ANEU, AHAVG, PRO, MG, AFPS, FES, [id number] ####[place] [address] [place] [address] GLUBFon 02-22-2024 Glucose Body Fluid Spec Type Peritoneal fl Normal [facility] Comment on above: Result Comment: The reference interval(s) and other method performance specifications have not been established for this body fluid. The test result must be integrated into the clinical content for interpretation. Performed By: #### U A #### [place] [address] Glucose BF 138.0 mg/dL Normal [facility] Comment on above: Performed By: #### U A #### [place] [address] LABORATORYOrdered By: SYSTEM SYSTEM on 02-22-2024 Albumin (Body fld) [Mass/Vol] G/dL Invalid Interpretation Code ADM SS Glucose (Body fld) [Mass/Vol] 138.0 mg/dL Invalid Interpretation Code ADM SS Protein (Body fld) [Mass/Vol] G/dL Invalid Interpretation Code ADM SS Basophils (Bld) [#/Vol] 0.0 103/mcL Normal 0.0 - 0.3 10^3/mcL Workflow SS Basophils/100 WBC (Bld) 0.7 % Normal 0.0 - 2.5 % Workflow SS Calcium [Mass/Vol] 8.2 mg/dL Low 8.7 - 10. 4 mg/dL ADM SS Chloride [Moles/Vol] 100 mmol/L Normal 98 - 110 mEq/L ADM SS CO2 [Moles/Vol] 32 mmol/L Normal 22 - 32 mEq/L ADM SS Creatinine [Mass/Vol] 0.76 mg/dL Normal 0.60 - 1.40 mg/dL ADM SS Comment on above: Interpretive Data: T esting performed on [employer] analyzer using enzymatic creatinine methodology. Electrolyte Balance 3.0 mEq/L Low 4.0 - 15 .0 mEq/L ADM SS Eosinophils (Bld) [#/Vol] 0.1 103/mcL Normal 0.0 - 0.7 10^3/mcL Workflow SS Eosinophils/100 WBC (Bld) 1.5 % Normal 0.0 - 6.0 % Workflow SS Erythrocyte distribution width (RBC) [Ratio] 13.9 % Normal 11.5 - 15.5 % Workflow SS GFR/1.73 sq M.predicted among blacks MDRD (S/P/Bld) [Vol rate/Area] ml/min/1.73sqm Invalid Interpretation Code NEON [facility] S Comment on above: Interpretive Data: GFR Population mean for , Non- Americans Ages 20-29 = 116 mL/min/1.73 sq.m. Ages 30-39 = 107 mL/min/1.73 sq.m. Ages 40-49 = 99 mL/min/1.73 sq.m. Ages 50-59 = 93 mL/min/1.73 sq.m. Ages 60-69 = 85 mL/min/1.73 sq.m. Ages 70+ = 75 mL/min/1.73 sq.m. Chronic Kidney Disease: Less than 60 mL/min/1.73 square meters End Stage Renal Disease: Less than 15 mL/min/1.73 square meters GFR/1.73 sq M.predicted among non-blacks MDRD (S/P/Bld) [Vol rate/Area] ml/min/1.73sqm Invalid Interpretation Code NEON [facility] S Comment on above: Interpretive Data: GFR Population mean for , Non- Americans Ages 20-29 = 116 mL/min/1.73 sq.m. Ages 30-39 = 107 mL/min/1.73 sq.m. Ages 40-49 = 99 mL/min/1.73 sq.m. Ages 50-59 = 93 mL/min/1.73 sq.m. Ages 60-69 = 85 mL/min/1.73 sq.m. Ages 70+ = 75 mL/min/1.73 sq.m. Chronic Kidney Disease: Less than 60 mL/min/1.73 square meters End Stage Renal Disease: Less than 15 mL/min/1.73 square meters Glucose [Mass/Vol] 83 mg/dL Normal 70 - 110 mg/dL AH ADM SS Hematocrit (Bld) [Volume fraction] 34.4 % Low 40.0 - 52.0 % AH Workflow SS Hemoglobin (Bld) [Mass/Vol] 11.8 G/dL Low 13.0 - 17.5 G/dL AH Workflow SS Lymphocytes (Bld) [#/Vol] 1.6 103/mcL Normal 0.9 - 4.3 10^3/mcL AH Workflow SS Lymphocytes/100 WBC (Bld) 22.8 % Normal 20.0 - 40.0 % AH Workflow SS MCH (RBC) [Entitic mass] 37.5 pg High 27.0 - 33.0 pg AH Workflow SS MCHC 34.4 G/dL Normal 32.0 - 36.0 G/dL AH Workflow SS MCV (RBC) [Entitic vol] 109.1 fL High 81.0 - 100.0 fL AH Workflow SS Monocytes (Bld) [#/Vol] 0.7 103/mcL Normal 0.1 - 1.4 10^3/mcL AH Workflow SS Monocytes/100 WBC (Bld) 9.7 % Normal 2.0 - 13.0 % AH Workflow SS Neutrophils (Bld) [#/Vol] 4.6 103/mcL Normal 2.3 - 8.1 10^3/mcL AH Workflow SS Neutrophils/100 WBC (Bld) 65.3 % Normal 50.0 - 75.0 % AH Workflow SS Platelet mean volume (Bld) [Entitic vol] 8.1 fL Normal 6.4 - 10.5 fL AH Workflow SS Platelets (Bld) [#/Vol] 316 103/mcL Normal 150 - 450 10^3/mcL AH Workflow SS Potassium [Moles/Vol] 4.4 mmol/L Normal 3.5 - 5.0 mEq/L AH ADM SS RBC (Bld) [#/Vol] 3.15 106/mcL Low 4.50 - 6.0 0 10^6/mcL AH Workflow SS Sodium [Moles/Vol] 135 mmol/L Low 136 - 145 mEq/L AH ADM SS Urea nitrogen [Mass/Vol] 8.0 mg/dL Normal 8.0 - 22.0 mg/dL ADM SS Urea nitrogen/Creatinine [Mass ratio] 10.5 ratio Normal 10.0 - 22.0 ratio AH ADM SS WBC (Bld) [#/Vol] 7.0 103/mcL Normal 4.5 - 10.8 10^3/mcL AH Workflow SS LABORATORYOrdered By: Kailyn Hickey on 02-22-2024 Albumin Body Fluid Spec Type Peritoneal fl 28 (02/22/24 12:06 PM) Normal AH Chemistry S Comment on above: Interpretive Data: T he reference interval(s) and other method performance specifications have not been established for this body fluid. The test result must be integrated into the clinical content for interpretation. Glucose Body Fluid Spec Type Peritoneal fl 30 (02/22/24 12:06 PM) Normal AH Chemistry S Comment on above: Interpretive Data: T he reference interval(s) and other method performance specifications have not been established for this body fluid. The test result must be integrated into the clinical content for interpretation. Nucleated RBC/100 WBC (Bld) [Ratio] 351 % Invalid Interpretation Code AH Manual Heme SS Protein BF Type Peritoneal fl 26 (02/22/24 12:06 PM) Normal AH Chemistry S Comment on above: Interpretive Data: T he reference interval(s) and other method performance specifications have not been established for this body fluid. The test result must be integrated into the clinical content for interpretation. Specimen source Nom (Body fld) Peritoneal fl 19 (02/22/24 12:06 PM) Normal AH Manual Heme SS Comment on above: Interpretive Data: R eference ranges have not been established for this body fluid. The test results must be integrated into the clinical context for interpretation. MITOon 02-22-2024 Mitochondrial Ab Neg [address] [facility] Comment on above: Result Comment: Carlos chondrial Ab Screen and Titer methodology is an immunofluorescent technique utilizing MSK Substrate. Performed By: #### E NDO, CARLOS, ADIFF, SMUSC, ANAIFS, CERUL, BMP, CBC, FERR, HEPAC, GFR, IGG, HBSAB, ANEU, AHAVG, PRO, MG, AFPS, FES, [id number] ####[facility] [place] [address] No Panel Informationon 02-21 Culture Body Fluid Culture has been rec eived in lab and is no growth to date. Routine cultures are held for 5 days. [facility] Work Phone: GS 1+ Mononuclear cells No organisms seen. [facility] Work Phone: PROBFon 02-22-2024 Protein BF Type Peritoneal fl Normal [facility] Comment on above: Result Comment: The reference interval(s) and other method performance specifications have not been established for this body fluid. The test result must be integrated into the clinical content for interpretation. Performed By: #### U A #### [address] [address] Protein BF <2.[address] [facility] Comment on above: Performed By: #### U A #### [facility] [address] [place] [address] SMUSCon 02-22-2024 Smooth Muscle Ab Neg [address] [facility] Comment on above: Result Comment: Smoo th Muscle Ab Screen and Titer methodology is an immunofluorescent technique utilizing MSK Substrate. Performed By: #### U A #### [address] [address] [place] PARACENTESISon 02-22-2024 US PARACENTESIS ORIGINAL EXAMINATION: ULTRASOUND GUIDED PARACENTESIS 02/22/2024 12:33 pm CLINICAL STATEMENT: Ascites SITE: RUQ FLUID REMOVED: 2700 cc FLUID COLOR: Right upper abdomen DISPOSITION OF FLUID: Sent to lab CATHETER/NEEDLE: 5 Fr centesis catheter The procedure, risks, limitations, and alternatives were discussed. All questions were answered. Written informed consent was obtained. Accompanying paperwork was verified for accuracy. Directed history and physical exam performed prior to the procedure. Medication reconciliation was performed by nursing personnel. Procedure was performed using a cap, sterile gloves, a large sterile sheet, hand hygiene and hospital-approved cutaneous antisepsis. Ultrasound survey demonstrates ascites. 2% lidocaine was administered at the puncture site for local anesthesia. The centesis catheter needle was advanced into the fluid. After removal of the needle, the catheter was attached to vacuum bottles and removed once no additional fluid could be removed. COMPLICATIONS: None EBL: None PATIENT CONDITION: unchanged IMPRESSION: Successful ultrasound-guided paracentesis. The procedure was performed by Domonique Valera, Physician [employer] Advisor. I concur with the contents of the report. Interpreted by: Adolph Morales MD Preliminary Report By: Domonique Valera PA-C Electronically signed By Adolph Morales MD Dictated Date: 02/22/2024 4:13:38 PM Prelim Date: 02/22/2024 4:14:10 PM Sign Date: 02/22/2024 4:23:00 PM Ordering Provider: JAYJAY Bautista [facility] .Auto Diffon 02-21-2024 Basophil, Absolute 0.1 10 3/mcL Normal 0.0-0.3 [facility] Comment on above: Performed By: #### E NDO, CARLOS, ADIFF, SMUSC, ANAIFS, CERUL, BMP, CBC, FERR, HEPAC, GFR, IGG, HBSAB, ANEU, AHAVG, PRO, MG, AFPS, FES, [id number] ####[address] [address] Basophils/100 WBC (Bld) 0.9 % Normal 0.0-2.5 [facility] Comment on above: Performed By: #### E NDO, CARLOS, ADIFF, SMUSC, ANAIFS, CERUL, BMP, CBC, FERR, HEPAC, GFR, IGG, HBSAB, ANEU, AHAVG, PRO, MG, AFPS, FES, [id number] ####[address] [address] Eosinophil, Absolute 0.1 10 3/mcL Normal 0.0-0.7 [facility] Comment on above: Performed By: #### E NDO, CARLOS, ADIFF, SMUSC, ANAIFS, CERUL, BMP, CBC, FERR, HEPAC, GFR, IGG, HBSAB, ANEU, AHAVG, PRO, MG, AFPS, FES, [id number] ####[address] [address] Eosinophils/100 WBC (Bld) 1.8 % Normal 0.0-6.0 [facility] Comment on above: Performed By: #### E NDO, CARLOS, ADIFF, SMUSC, ANAIFS, CERUL, BMP, CBC, FERR, HEPAC, GFR, IGG, HBSAB, ANEU, AHAVG, PRO, MG, AFPS, FES, [id number] ####[address] [address] Lymphocyte, Absolute 1.2 10 3/mcL Normal 0.9-4.3 [facility] Comment on above: Performed By: #### E NDO, CARLOS, ADIFF, SMUSC, ANAIFS, CERUL, BMP, CBC, FERR, HEPAC, GFR, IGG, HBSAB, ANEU, AHAVG, PRO, MG, AFPS, FES, [id number] ####[address] [address] Lymphocytes/100 WBC (Bld) 16.2 % Low 20.0-40.0 [facility] Comment on above: Performed By: #### E NDO, ACRLOS, ADIFF, SMUSC, ANAIFS, CERUL, BMP, CBC, FERR, HEPAC, GFR, IGG, HBSAB, ANEU, AHAVG, PRO, MG, AFPS, FES, [id number] ####[address] [address] Monocyte, Absolute 0.6 10 3/mcL Normal 0.1-1.4 [facility] Comment on above: Performed By: #### E NDO, CARLOS, ADIFF, SMUSC, ANAIFS, CERUL, BMP, CBC, FERR, HEPAC, GFR, IGG, HBSAB, ANEU, AHAVG, PRO, MG, AFPS, FES, [id number] ####[address] [address] Monocytes/100 WBC (Bld) 8.7 % Normal 2.0-13.0 [facility] Comment on above: Performed By: #### E NDO, CARLOS, ADIFF, SMUSC, ANAIFS, CERUL, BMP, CBC, FERR, HEPAC, GFR, IGG, HBSAB, ANEU, AHAVG, PRO, MG, AFPS, FES, [id number] ####[address] [address] Neutrophils/100 WBC (Bld) 72.4 % Normal 50.0-75.0 [facility] Comment on above: Performed By: #### E NDO, CARLOS, ADIFF, SMUSC, ANAIFS, CERUL, BMP, CBC, FERR, HEPAC, GFR, IGG, HBSAB, ANEU, AHAVG, PRO, MG, AFPS, FES, [id number] ####[place] [address] [place] [address] .GFRon 02-21-2024 GFR Non- >60 [facility] Comment on above: Result Comment: GFR Population mean for , Non- Americans Ages 20-29 = 116 mL/min/1.73 sq.m. Ages 30-39 = 107 mL/min/1.73 sq.m. Ages 40-49 = 99 mL/min/1.73 sq.m. Ages 50-59 = 93 mL/min/1.73 sq.m. Ages 60-69 = 85 mL/min/1.73 sq.m. Ages 70+ = 75 mL/min/1.73 sq.m. Chronic Kidney Disease: Less than 60 mL/min/1.73 square meters End Stage Renal Disease: Less than 15 mL/min/1.73 square meters Performed By: #### E NDO, CARLOS, ADIFF, SMUSC, ANAIFS, CERUL, BMP, CBC, FERR, HEPAC, GFR, IGG, HBSAB, ANEU, AHAVG, PRO, MG, AFPS, FES, [id number] ####[place] [address] [place] [address] GFR >60 [facility] Comment on above: Result Comment: GFR Population mean for , Non- Americans Ages 20-29 = 116 mL/min/1.73 sq.m. Ages 30-39 = 107 mL/min/1.73 sq.m. Ages 40-49 = 99 mL/min/1.73 sq.m. Ages 50-59 = 93 mL/min/1.73 sq.m. Ages 60-69 = 85 mL/min/1.73 sq.m. Ages 70+ = 75 mL/min/1.73 sq.m. Chronic Kidney Disease: Less than 60 mL/min/1.73 square meters End Stage Renal Disease: Less than 15 mL/min/1.73 square meters Performed By: #### E NDO, CARLOS, ADIFF, SMUSC, ANAIFS, CERUL, BMP, CBC, FERR, HEPAC, GFR, IGG, HBSAB, ANEU, AHAVG, PRO, MG, AFPS, FES, [id number] ####[address] [address] .NEUABSon 02-21-2024 Neutrophil, Absolute 5.3 10 3/mcL Normal 2.3-8.1 [facility] Comment on above: Performed By: #### E NDO, CARLOS, ADIFF, SMUSC, ANAIFS, CERUL, BMP, CBC, FERR, HEPAC, GFR, IGG, HBSAB, ANEU, AHAVG, PRO, MG, AFPS, FES, [id number] ####[place] [address] AFPSon 02-21-2024 AFP, Tumor Marker 3.1 ng/mL Normal 0.0-8.5 [facility] Comment on above: Result Comment: Test ing performed on the [employer] analyzer using direct chemiluminesent technology. Patient results determined by assays using different manufacturers for methods may not be comparable. Performed By: #### E NDO, CARLOS, ADIFF, SMUSC, ANAIFS, CERUL, BMP, CBC, FERR, HEPAC, GFR, IGG, HBSAB, ANEU, AHAVG, PRO, MG, AFPS, FES, [id number] ####[place] [address] BMPon 02-21-2024 BUN/Creatinine Ratio 9.1 ratio Low 10.0-22.0 [facility] Comment on above: Performed By: #### E NDO, CARLOS, ADIFF, SMUSC, ANAIFS, CERUL, BMP, CBC, FERR, HEPAC, GFR, IGG, HBSAB, ANEU, AHAVG, PRO, MG, AFPS, FES, [id number] ####[address] [address] Calcium [Mass/Vol] 7.7 mg/dL Low 8.7-10.4 [facility] Comment on above: Performed By: #### E NDO, CARLOS, ADIFF, SMUSC, ANAIFS, CERUL, BMP, CBC, FERR, HEPAC, GFR, IGG, HBSAB, ANEU, AHAVG, PRO, MG, AFPS, FES, [id number] ####[address] [address] Chloride [Moles/Vol] 103 mmol/L Normal 98-110 [facility] Comment on above: Performed By: #### E NDO, CARLOS, ADIFF, SMUSC, ANAIFS, CERUL, BMP, CBC, FERR, HEPAC, GFR, IGG, HBSAB, ANEU, AHAVG, PRO, MG, AFPS, FES, [id number] ####[address] [address] CO2 [Moles/Vol] 31 mmol/L Normal 22-32 [facility] Comment on above: Performed By: #### E NDO, CARLOS, ADIFF, SMUSC, ANAIFS, CERUL, BMP, CBC, FERR, HEPAC, GFR, IGG, HBSAB, ANEU, AHAVG, PRO, MG, AFPS, FES, [id number] ####[address] [address] Creatinine [Mass/Vol] 0.66 mg/dL Normal 0.60-1.40 [facility] Comment on above: Result Comment: Test ing performed on [employer] analyzer using enzymatic creatinine methodology. Performed By: #### E NDO, CARLOS, ADIFF, SMUSC, ANAIFS, CERUL, BMP, CBC, FERR, HEPAC, GFR, IGG, HBSAB, ANEU, AHAVG, PRO, MG, AFPS, FES, [id number] ####[address] [address] Electrolyte Balance -1.0 mEq/L Low 4.0-15.0 [facility] Comment on above: Performed By: #### E NDO, CARLOS, ADIFF, SMUSC, ANAIFS, CERUL, BMP, CBC, FERR, HEPAC, GFR, IGG, HBSAB, ANEU, AHAVG, PRO, MG, AFPS, FES, [id number] ####[address] [address] Glucose [Mass/Vol] 84 mg/dL Normal 70-110 [facility] Comment on above: Performed By: #### E NDO, CARLOS, ADIFF, SMUSC, ANAIFS, CERUL, BMP, CBC, FERR, HEPAC, GFR, IGG, HBSAB, ANEU, AHAVG, PRO, MG, AFPS, FES, [id number] ####[address] [address] Potassium [Moles/Vol] 3.7 mmol/L Normal 3.5-5.0 [facility] Comment on above: Performed By: #### E NDO, CARLOS, ADIFF, SMUSC, ANAIFS, CERUL, BMP, CBC, FERR, HEPAC, GFR, IGG, HBSAB, ANEU, AHAVG, PRO, MG, AFPS, FES, [id number] ####[address] [address] Sodium [Moles/Vol] 133 mmol/L Low 136-145 [facility] Comment on above: Performed By: #### E NDO, CARLOS, ADIFF, SMUSC, ANAIFS, CERUL, BMP, CBC, FERR, HEPAC, GFR, IGG, HBSAB, ANEU, AHAVG, PRO, MG, AFPS, FES, [id number] ####[address] [address] Urea nitrogen [Mass/Vol] 6.0 mg/dL Low 8.0-22.0 [facility] Comment on above: Performed By: #### E NDO, CARLOS, ADIFF, SMUSC, ANAIFS, CERUL, BMP, CBC, FERR, HEPAC, GFR, IGG, HBSAB, ANEU, AHAVG, PRO, MG, AFPS, FES, [id number] ####[address] [address] CBCon 02-21-2024 Erythrocyte distribution width (RBC) [Ratio] 13.7 % Normal 11.5-15.5 [facility] Comment on above: Performed By: #### E NDO, CARLOS, ADIFF, SMUSC, ANAIFS, CERUL, BMP, CBC, FERR, HEPAC, GFR, IGG, HBSAB, ANEU, AHAVG, PRO, MG, AFPS, FES, [id number] ####[address] [address] Hematocrit (Bld) [Volume fraction] 34.0 % Low 40.0-52.0 [facility] Comment on above: Performed By: #### E NDO, CARLOS, ADIFF, SMUSC, ANAIFS, CERUL, BMP, CBC, FERR, HEPAC, GFR, IGG, HBSAB, ANEU, AHAVG, PRO, MG, AFPS, FES, [id number] ####[place] [address] Hgb 11.5 G/dL Low 13.0-17.5 [facility] Comment on above: Performed By: #### E NDO, CARLOS, ADIFF, SMUSC, ANAIFS, CERUL, BMP, CBC, FERR, HEPAC, GFR, IGG, HBSAB, ANEU, AHAVG, PRO, MG, AFPS, FES, [id number] ####[place] [address] MCH (RBC) [Entitic mass] 37.1 pg High 27.0-33.0 [facility] Comment on above: Performed By: #### E NDO, CARLOS, ADIFF, SMUSC, ANAIFS, CERUL, BMP, CBC, FERR, HEPAC, GFR, IGG, HBSAB, ANEU, AHAVG, PRO, MG, AFPS, FES, [id number] ####[place] [address] MCHC 33.9 G/dL Normal 32.0-36.0 [facility] Comment on above: Performed By: #### E NDO, CARLOS, ADIFF, SMUSC, ANAIFS, CERUL, BMP, CBC, FERR, HEPAC, GFR, IGG, HBSAB, ANEU, AHAVG, PRO, MG, AFPS, FES, [id number] ####[place] [id number] MCV (RBC) [Entitic vol] 109.4 fL High 81.0-100.0 [facility] Comment on above: Performed By: #### E NDO, CARLOS, ADIFF, SMUSC, ANAIFS, CERUL, BMP, CBC, FERR, HEPAC, GFR, IGG, HBSAB, ANEU, AHAVG, PRO, MG, AFPS, FES, [id number] ####[place] [id number] Platelet 283 10 3/mcL Normal 150-450 [facility] Comment on above: Performed By: #### E NDO, CARLOS, ADIFF, SMUSC, ANAIFS, CERUL, BMP, CBC, FERR, HEPAC, GFR, IGG, HBSAB, ANEU, AHAVG, PRO, MG, AFPS, FES, [id number] ####[place] [address] Platelet mean volume (Bld) [Entitic vol] 7.9 fL Normal 6.4-10.5 [facility] Comment on above: Performed By: #### E NDO, CARLOS, ADIFF, SMUSC, ANAIFS, CERUL, BMP, CBC, FERR, HEPAC, GFR, IGG, HBSAB, ANEU, AHAVG, PRO, MG, AFPS, FES, [id number] ####[place] [address] RBC 3.11 10 6/mcL Low 4.50-6.00 [facility] Comment on above: Performed By: #### E NDO, CARLOS, ADIFF, SMUSC, ANAIFS, CERUL, BMP, CBC, FERR, HEPAC, GFR, IGG, HBSAB, ANEU, AHAVG, PRO, MG, AFPS, FES, [id number] ####[place] [address] WBC 7.3 10 3/mcL Normal 4.5-10.8 [facility] Comment on above: Performed By: #### E NDO, CARLOS, ADIFF, SMUSC, ANAIFS, CERUL, BMP, CBC, FERR, HEPAC, GFR, IGG, HBSAB, ANEU, AHAVG, PRO, MG, AFPS, FES, [id number] ####[place] [address] Christina 02-21-2024 Ferritin [Mass/Vol] 275.4 ng/mL Normal 26.0-388.0 [facility] Comment on above: Performed By: #### E NDO, CARLOS, ADIFF, SMUSC, ANAIFS, CERUL, BMP, CBC, FERR, HEPAC, GFR, IGG, HBSAB, ANEU, AHAVG, PRO, MG, AFPS, FES, [id number] ####[place] [address] FESon 02-21-2024 Iron [Mass/Vol] 95 ug/dL Normal 65-175 [facility] Comment on above: Performed By: #### E NDO, CARLOS, ADIFF, SMUSC, ANAIFS, CERUL, BMP, CBC, FERR, HEPAC, GFR, IGG, HBSAB, ANEU, AHAVG, PRO, MG, AFPS, FES, [id number] ####[place] [address] Iron Sat 68 % Normal [facility] Comment on above: Performed By: #### E NDO, CARLOS, ADIFF, SMUSC, ANAIFS, CERUL, BMP, CBC, FERR, HEPAC, GFR, IGG, HBSAB, ANEU, AHAVG, PRO, MG, AFPS, FES, [id number] ####[place] [address] TIBC 139 mcg/dL Low 250-500 [facility] Comment on above: Performed By: #### E NDO, CARLOS, ADIFF, SMUSC, ANAIFS, CERUL, BMP, CBC, FERR, HEPAC, GFR, IGG, HBSAB, ANEU, AHAVG, PRO, MG, AFPS, FES, [id number] ####[place] [address] HBSABon 02-21-2024 Hep B Surf Ab <3.1 Low >=10.0 [facility] Comment on above: Result Comment: 0 to < 10.0 mIU/mL Nonreactive Patient is considered not to have protective immunity to HBV infection >/= 10.0 mIU/mL Reactive Patient is considered to have protective immunity to HBV infection. This assay is traceable to the World Health Organization (WHO) Hepatitis B Immunoglobulin 1st International Reference Preparation (1976). The accepted criteria for immunity to HBV is anti-HBs activity >/= 10.0 mIU/mL, as defined by the WHO International Reference Preparation. Performed By: #### E NDO, CARLOS, ADIFF, SMUSC, ANAIFS, CERUL, BMP, CBC, FERR, HEPAC, GFR, IGG, HBSAB, ANEU, AHAVG, PRO, MG, AFPS, FES, [id number] ####[place] [address] HEPACon 02-21-2024 Hep A IgM Ab Non-Reactive Normal Non-Reactive [facility] Comment on above: Performed By: #### E NDO, CARLOS, ADIFF, SMUSC, ANAIFS, CERUL, BMP, CBC, FERR, HEPAC, GFR, IGG, HBSAB, ANEU, AHAVG, PRO, MG, AFPS, FES, [id number] ####[place] [address] Hep A IgM Ab Int [facility] Comment on above: Result Comment: No s erological evidence of a current Hepatitis A infection. See Interp Performed By: #### E NDO, CARLOS, ADIFF, SMUSC, ANAIFS, CERUL, BMP, CBC, FERR, HEPAC, GFR, IGG, HBSAB, ANEU, AHAVG, PRO, MG, AFPS, FES, [id number] ####[place] [address] Hep B Core IgM Ab Non-Reactive Normal Non-Reactive [facility] Comment on above: Performed By: #### E NDO, CARLOS, ADIFF, SMUSC, ANAIFS, CERUL, BMP, CBC, FERR, HEPAC, GFR, IGG, HBSAB, ANEU, AHAVG, PRO, MG, AFPS, FES, [id number] ####[place] [address] Hep B Core IgM Ab Int [facility] Comment on above: Result Comment: Samp les with a value < 0.80 Index are considered nonreactive (negative) for IgM antibodies to hepatitis B core antigen. See Interp Performed By: #### E NDO, CARLOS, ADIFF, SMUSC, ANAIFS, CERUL, BMP, CBC, FERR, HEPAC, GFR, IGG, HBSAB, ANEU, AHAVG, PRO, MG, AFPS, FES, [id number] ####[address] [address] Hep B Surf Ag Non-Reactive Normal Non-Reactive [facility] Comment on above: Performed By: #### E NDO, CARLOS, ADIFF, SMUSC, ANAIFS, CERUL, BMP, CBC, FERR, HEPAC, GFR, IGG, HBSAB, ANEU, AHAVG, PRO, MG, AFPS, FES, [id number] ####[address] [address] Hep C Ab Non-Reactive Normal Non-Reactive [facility] Comment on above: Performed By: #### E NDO, CARLOS, ADIFF, SMUSC, ANAIFS, CERUL, BMP, CBC, FERR, HEPAC, GFR, IGG, HBSAB, ANEU, AHAVG, PRO, MG, AFPS, FES, [id number] ####[place] [id number] Hep C Ab Int Normal [facility] Comment on above: Result Comment: Nonr eactive: Samples with a value < 0.80 are considered nonreactive (negative) for antibodies to HCV. A negative test result does not exclude the possibility of exposure to or infection with HCV. HCV antibodies may be undetectable in some stages of the infection and in some clinical conditions. See Interp Performed By: #### E NDO, CARLOS, ADIFF, SMUSC, ANAIFS, CERUL, BMP, CBC, FERR, HEPAC, GFR, IGG, HBSAB, ANEU, AHAVG, PRO, MG, AFPS, FES, [id number] ####[place] [id number] IGGon 02-21-2024 IgG [Mass/Vol] 606 mg/dL Low 650-1600 [facility] Comment on above: Result Comment: No te - New Reference Range in effect 19 Performed By: #### E NDO, CARLOS, ADIFF, SMUSC, ANAIFS, CERUL, BMP, CBC, FERR, HEPAC, GFR, IGG, HBSAB, ANEU, AHAVG, PRO, MG, AFPS, FES, [id number] ####[place] [address] LABORATORYOrdered By: SYSTEM SYSTEM on 02-21-2024 AFP [Mass/Vol] 3.1 ng/mL Normal 0.0 - 8.5 ng/mL ADM SS Comment on above: Interpretive Data: T esting performed on the [employer] IM analyzer using direct chemiluminesent technology. Patient results determined by assays using different manufacturers for methods may not be comparable. Basophils (Bld) [#/Vol] 0.1 103/mcL Normal 0.0 - 0.3 10^3/mcL Workflow SS Basophils/100 WBC (Bld) 0.9 % Normal 0.0 - 2.5 % Workflow SS Calcium [Mass/Vol] 7.7 mg/dL Low 8.7 - 10. 4 mg/dL ADM SS Ceruloplasmin [Mass/Vol] 12.0 mg/dL Low 22.0 - 58.0 mg/dL ADM SS Chloride [Moles/Vol] 103 mmol/L Normal 98 - 110 mEq/L ADM SS CO2 [Moles/Vol] 31 mmol/L Normal 22 - 32 mEq/L ADM SS Creatinine [Mass/Vol] 0.66 mg/dL Normal 0.60 - 1.40 mg/dL ADM SS Comment on above: Interpretive Data: T esting performed on [employer] analyzer using enzymatic creatinine methodology. Electrolyte Balance -1.0 mEq/L Low 4.0 - 15 .0 mEq/L ADM SS Eosinophils (Bld) [#/Vol] 0.1 103/mcL Normal 0.0 - 0.7 10^3/mcL Workflow SS Eosinophils/100 WBC (Bld) 1.8 % Normal 0.0 - 6.0 % Workflow SS Erythrocyte distribution width (RBC) [Ratio] 13.7 % Normal 11.5 - 15.5 % Workflow SS Ferritin [Mass/Vol] 275.4 ng/mL Normal 26.0 - 3 88.0 ng/mL ADM SS GFR/1.73 sq M.predicted among blacks MDRD (S/P/Bld) [Vol rate/Area] ml/min/1.73sqm Invalid Interpretation Code Chemistry S Comment on above: Interpretive Data: GFR Population mean for , Non- Americans Ages 20-29 = 116 mL/min/1.73 sq.m. Ages 30-39 = 107 mL/min/1.73 sq.m. Ages 40-49 = 99 mL/min/1.73 sq.m. Ages 50-59 = 93 mL/min/1.73 sq.m. Ages 60-69 = 85 mL/min/1.73 sq.m. Ages 70+ = 75 mL/min/1.73 sq.m. Chronic Kidney Disease: Less than 60 mL/min/1.73 square meters End Stage Renal Disease: Less than 15 mL/min/1.73 square meters GFR/1.73 sq M.predicted among non-blacks MDRD (S/P/Bld) [Vol rate/Area] ml/min/1.73sqm Invalid Interpretation Code Chemistry S Comment on above: Interpretive Data: GFR Population mean for , Non- Americans Ages 20-29 = 116 mL/min/1.73 sq.m. Ages 30-39 = 107 mL/min/1.73 sq.m. Ages 40-49 = 99 mL/min/1.73 sq.m. Ages 50-59 = 93 mL/min/1.73 sq.m. Ages 60-69 = 85 mL/min/1.73 sq.m. Ages 70+ = 75 mL/min/1.73 sq.m. Chronic Kidney Disease: Less than 60 mL/min/1.73 square meters End Stage Renal Disease: Less than 15 mL/min/1.73 square meters Glucose [Mass/Vol] 84 mg/dL Normal 70 - 110 mg/dL ADM SS Hematocrit (Bld) [Volume fraction] 34.0 % Low 40.0 - 52.0 % Workflow SS Hemoglobin (Bld) [Mass/Vol] 11.5 G/dL Low 13.0 - 17.5 G/dL Workflow SS IgG [Mass/Vol] 606 mg/dL Low 650 - 1600 mg/dL ADM Comment on above: Interpretive Data: * *Note - New Reference Range in effect 19 Iron [Mass/Vol] 95 ug/dL Normal 65 - 175 mcg/dL ADM SS Iron binding capacity [Mass/Vol] 139 mcg/dL Low 250 - 500 mcg/dL ADM SS Iron saturation [Mass fraction] 68 % Invalid Interpretation Code ADM SS Lymphocytes (Bld) [#/Vol] 1.2 103/mcL Normal 0.9 - 4.3 10^3/mcL Workflow SS Lymphocytes/100 WBC (Bld) 16.2 % Low 20.0 - 40.0 % Workflow SS Magnesium [Mass/Vol] 2.0 mg/dL Normal 1.6 - 2.4 mg/dL ADM SS MCH (RBC) [Entitic mass] 37.1 pg High 27.0 - 33.0 pg Workflow SS MCHC 33.9 G/dL Normal 32.0 - 36.0 G/dL Workflow SS MCV (RBC) [Entitic vol] 109.4 fL High 81.0 - 100.0 fL Workflow SS Monocytes (Bld) [#/Vol] 0.6 103/mcL Normal 0.1 - 1.4 10^3/mcL Workflow SS Monocytes/100 WBC (Bld) 8.7 % Normal 2.0 - 13.0 % Workflow SS Neutrophils (Bld) [#/Vol] 5.3 103/mcL Normal 2.3 - 8.1 10^3/mcL Workflow SS Neutrophils/100 WBC (Bld) 72.4 % Normal 50.0 - 75.0 % Workflow SS Platelet mean volume (Bld) [Entitic vol] 7.9 fL Normal 6.4 - 10.5 fL Workflow SS Platelets (Bld) [#/Vol] 283 103/mcL Normal 150 - 450 10^3/mcL Workflow SS Potassium [Moles/Vol] 3.7 mmol/L Normal 3.5 - 5.0 mEq/L ADM SS PT Coag (PPP) [Time] 12.3 s Normal 9.0 - 14.4 seconds [facility] Comment on above: Interpretive Data: E ffective 12/07/07, Protime results may be affected by some antibiotics (i.e. Ciprofloxacin, Azithromycin, Bactrim) which may potentiate the action of oral anticoagulants, with further increases in Protime/INR. PT International Ratio 1.1 ratio Invalid Interpretation Code [facility] Comment on above: Interpretive Data: Laureen guido [employer] (CHEST, 1991, [id number]) recommended therapeutic range for oral anticoagulant therapy is: LOW RISK: Prophylaxis of venous thrombosis INR: 2.0-3.0 Treatment of pulmonary embolism 2.0-3.0 Prevention of systemic embolism 2.0-3.0 HIGH RISK: Mechanical prosthetic valves 2.5-3.5 RBC (Bld) [#/Vol] 3.11 106/mcL Low 4.50 - 6.0 0 10^6/mcL AH Workflow SS Sodium [Moles/Vol] 133 mmol/L Low 136 - 145 mEq/L AH ADM SS Urea nitrogen [Mass/Vol] 6.0 mg/dL Low 8.0 - 22.0 mg/dL AH ADM SS Urea nitrogen/Creatinine [Mass ratio] 9.1 ratio Low 10.0 - 22.0 ratio AH ADM SS WBC (Bld) [#/Vol] 7.3 103/mcL Normal 4.5 - 10.8 10^3/mcL AH Workflow SS LABORATORYOrdered By: Alice Mejias on 02-21-2024 HAV IgM IA Ql Non-Reactive (02/21/24 8:20 AM) Normal Non-Reactive AH ADM SS HAV IgM IA Ql No serological evide nce of a current Hepatitis A infection. Normal AH Chemistry S HBV core IgM IA Ql Non-Reactive (02/21/24 8:20 AM) Normal Non-Reactive AH ADM SS HBV core IgM IA Ql Samples with a value < 0.80 Index are considered nonreactive (negative) for IgM antibodies to hepatitis B core antigen. Normal AH Chemistry S HBV surface Ab Qn (S) mIU/mL Low >=10.0mIU/mL AH ADM SS Comment on above: Interpretive Data: 0 to < 10.0 mIU/mL Nonreactive Patient is considered not to have protective immunity to HBV infection >/= 10.0 mIU/mL Reactive Patient is considered to have protective immunity to HBV infection. This assay is traceable to the World Health Organization (WHO) Hepatitis B Immunoglobulin 1st International Reference Preparation (1976). The accepted criteria for immunity to HBV is anti-HBs activity >/= 10.0 mIU/mL, as defined by the WHO International Reference Preparation. HBV surface Ag IA Ql Non-Reactive (02/21/24 8:20 AM) Normal Non-Reactive AH ADM SS HCV Ab IA Ql Non-Reactive (02/21/24 8:20 AM) Normal Non-Reactive AH ADM SS HCV Ab IA Ql Nonreactive: Samples with a value < 0.80 are considered nonreactive (negative) for antibodies to HCV.A negative test result does not exclude the possibility of exposure to or infection with HCV. HCV antibodies may be undetectable in some stages of the infection and in some clinical conditions. Normal AH Chemistry S LABORATORYOrdered By: Celso Serna on 02-21-2024 Mitochondria Ab IF Ql (S) Neg 20 21 (02/21/24 8:20 AM) Normal Neg 20 AH Man Viro/Sero SS Comment on above: Interpretive Data: M itochondrial Ab Screen and Titer methodology is an immunofluorescent technique utilizing MSK Substrate. Smooth muscle Ab IF Ql (S) Neg 20 22 (02/21/24 8:20 AM) Normal Neg 20 AH Man Viro/Sero SS Comment on above: Interpretive Data: S mooth Muscle Ab Screen and Titer methodology is an immunofluorescent technique utilizing MSK Substrate. MGon 02-21-2024 Magnesium [Mass/Vol] 2.0 mg/dL Normal 1.6-2.4 [facility] Comment on above: Performed By: #### E NDO, CARLOS, ADIFF, SMUSC, ANAIFS, CERUL, BMP, CBC, FERR, HEPAC, GFR, IGG, HBSAB, ANEU, AHAVG, PRO, MG, AFPS, FES, [id number] ####[place] [id number] [place] [id number] PROon 02-21-2024 INR Coag (PPP) [Relative time] 1.1 {INR} Normal [facility] Comment on above: Result Comment: The [employer] (CHEST, 1991, [id number]) recommended therapeutic range for oral anticoagulant therapy is: LOW RISK: Prophylaxis of venous thrombosis INR: 2.0-3.0 Treatment of pulmonary embolism 2.0-3.0 Prevention of systemic embolism 2.0-3.0 HIGH RISK: Mechanical prosthetic valves 2.5-3.5 Performed By: #### E NDO, CARLOS, ADIFF, SMUSC, ANAIFS, CERUL, BMP, CBC, FERR, HEPAC, GFR, IGG, HBSAB, ANEU, AHAVG, PRO, MG, AFPS, FES, [id number] ####[facility] [place] [id number] PT Coag (PPP) [Time] 12.3 s Normal 9.0-14.4 [facility] Comment on above: Result Comment: Effe ctive 12/07/07, Protime results may be affected by some antibiotics (i.e. Ciprofloxacin, Azithromycin, Bactrim) which may potentiate the action of oral anticoagulants, with further increases in Protime/INR. Performed By: #### E NDO, CARLOS, ADIFF, SMUSC, ANAIFS, CERUL, BMP, CBC, FERR, HEPAC, GFR, IGG, HBSAB, ANEU, AHAVG, PRO, MG, AFPS, FES, [id number] ####[facility] [place] [id number] US DOPPLER ABDOMENon 024 US DOPPLER ABDOMEN ORIGINAL EXAMINATION: Doppler ultrasound of the liver. 02/20/2024 3:40 pm COMPARISON: CT abdomen and pelvis on 02/17/2024 HISTORY: ORDERING SYSTEM PROVIDED HISTORY: Reason for Exam: Budd Chiari FINDINGS: Permanently stored images reviewed. Hepatic veins in the liver are patent and demonstrate normal flow. There is normal flow in the inferior vena cava also. Main portal vein demonstrates hepatopetal flow. Main portal vein diameter is 9 mm, increasing to 11 mm with inspiration. There is normal flow in the right and left portal veins. There is moderate generalized ascites. IMPRESSION: 1. Normal Doppler evaluation of the hepatic veins and portal veins. 2. Moderate ascites. Interpreted by: Kin Rocha MD Preliminary Report By: Kin Rocha MD Electronically signed By Kin Rocha MD Dictated Date: 02/21/2024 12:00:16 AM Prelim Date: 02/21/2024 12:04:14 AM Sign Date: 02/21/2024 12:04:14 AM Ordering Provider: AUBRIE BIRMING[place]AM Normal ST. [facility] .Auto Diffon 02-20-2024 Basophil, Absolute 0.1 10 3/mcL Normal 0.0-0.3 [facility] Comment on above: Performed By: #### M ORPH, BMP, CBC, MG, ANEU, ADIFF, GFR ####[facility] [place] [id number] Basophils/100 WBC (Bld) 0.8 % Normal 0.0-2.5 [facility] Comment on above: Performed By: #### M ORPH, BMP, CBC, MG, ANEU, ADIFF, GFR ####[address] [address] Eosinophil, Absolute 0.1 10 3/mcL Normal 0.0-0.7 [facility] Comment on above: Performed By: #### M ORPH, BMP, CBC, MG, ANEU, ADIFF, GFR ####[address] [address] Eosinophils/100 WBC (Bld) 1.2 % Normal 0.0-6.0 [facility] Comment on above: Performed By: #### M ORPH, BMP, CBC, MG, ANEU, ADIFF, GFR ####[address] [address] Lymphocyte, Absolute 1.1 10 3/mcL Normal 0.9-4.3 [facility] Comment on above: Performed By: #### M ORPH, BMP, CBC, MG, ANEU, ADIFF, GFR ####[address] [address] Lymphocytes/100 WBC (Bld) 14.0 % Low 20.0-40.0 [facility] Comment on above: Performed By: #### M ORPH, BMP, CBC, MG, ANEU, ADIFF, GFR ####[address] [address] Monocyte, Absolute 0.5 10 3/mcL Normal 0.1-1.4 [facility] Comment on above: Performed By: #### M ORPH, BMP, CBC, MG, ANEU, ADIFF, GFR ####[address] [address] Monocytes/100 WBC (Bld) 7.1 % Normal 2.0-13.0 [facility] Comment on above: Performed By: #### M ORPH, BMP, CBC, MG, ANEU, ADIFF, GFR ####[address] [address] Neutrophils/100 WBC (Bld) 76.9 % High 50.0-75.0 [facility] Comment on above: Performed By: #### M ORPH, BMP, CBC, MG, ANEU, ADIFF, GFR ####[address] [address] .GFRon 02-20-2024 GFR >60 [facility] Comment on above: Result Comment: GFR Population mean for , Non- Americans Ages 20-29 = 116 mL/min/1.73 sq.m. Ages 30-39 = 107 mL/min/1.73 sq.m. Ages 40-49 = 99 mL/min/1.73 sq.m. Ages 50-59 = 93 mL/min/1.73 sq.m. Ages 60-69 = 85 mL/min/1.73 sq.m. Ages 70+ = 75 mL/min/1.73 sq.m. Chronic Kidney Disease: Less than 60 mL/min/1.73 square meters End Stage Renal Disease: Less than 15 mL/min/1.73 square meters Performed By: #### M ORPH, BMP, CBC, MG, ANEU, ADIFF, GFR ####[place] [address] GFR Non- >60 [facility] Comment on above: Result Comment: GFR Population mean for , Non- Americans Ages 20-29 = 116 mL/min/1.73 sq.m. Ages 30-39 = 107 mL/min/1.73 sq.m. Ages 40-49 = 99 mL/min/1.73 sq.m. Ages 50-59 = 93 mL/min/1.73 sq.m. Ages 60-69 = 85 mL/min/1.73 sq.m. Ages 70+ = 75 mL/min/1.73 sq.m. Chronic Kidney Disease: Less than 60 mL/min/1.73 square meters End Stage Renal Disease: Less than 15 mL/min/1.73 square meters Performed By: #### M ORPH, BMP, CBC, MG, ANEU, ADIFF, GFR ####[address] [address] .Morphon 02-20-2024 Anisocytosis Ql (Bld) 1+ [facility] Comment on above: Performed By: #### M ORPH, BMP, CBC, MG, ANEU, ADIFF, GFR ####[address] [address] Macrocytosis 2+ Normal [facility] Comment on above: Performed By: #### M ORPH, BMP, CBC, MG, ANEU, ADIFF, GFR ####[address] [address] Platelet Estimate Normal Normal [facility] Comment on above: Performed By: #### M ORPH, BMP, CBC, MG, ANEU, ADIFF, GFR ####[address] [address] .NEUABSon 02-20-2024 Neutrophil, Absolute 5.8 10 3/mcL Normal 2.3-8.1 [facility] Comment on above: Performed By: #### M ORPH, BMP, CBC, MG, ANEU, ADIFF, GFR ####[place] [address] AFPSon 02-20-2024 AFP, Tumor Marker 2.5 ng/mL Normal 0.0-8.5 [facility] Comment on above: Result Comment: Test ing performed on the [employer] IM analyzer using direct chemiluminesent technology. Patient results determined by assays using different manufacturers for methods may not be comparable. Performed By: #### A FPS, FERR, HCV1, HIV, ANAIFS, HBSAG, FES ####[place] [id number] BMPon 02-20-2024 BUN/Creatinine Ratio 8.7 ratio Low 10.0-22.0 [facility] Comment on above: Performed By: #### M ORPH, BMP, CBC, MG, ANEU, ADIFF, GFR ####[address] [address] Calcium [Mass/Vol] 7.7 mg/dL Low 8.7-10.4 [facility] Comment on above: Performed By: #### M ORPH, BMP, CBC, MG, ANEU, ADIFF, GFR ####[place] [address] Chloride [Moles/Vol] 100 mmol/L Normal 98-110 [facility] Comment on above: Performed By: #### M ORPH, BMP, CBC, MG, ANEU, ADIFF, GFR ####[address] [address] CO2 [Moles/Vol] 32 mmol/L Normal 22-32 [facility] Comment on above: Performed By: #### M ORPH, BMP, CBC, MG, ANEU, ADIFF, GFR ####[place] [address] Creatinine [Mass/Vol] 0.69 mg/dL Normal 0.60-1.40 [facility] Comment on above: Result Comment: Test ing performed on [employer] analyzer using enzymatic creatinine methodology. Performed By: #### M ORPH, BMP, CBC, MG, ANEU, ADIFF, GFR ####[place] [address] Electrolyte Balance 4.0 mEq/L Normal 4.0-15.0 [facility] Comment on above: Performed By: #### M ORPH, BMP, CBC, MG, ANEU, ADIFF, GFR ####[place] [address] Glucose [Mass/Vol] 89 mg/dL Normal 70-110 [facility] Comment on above: Performed By: #### M ORPH, BMP, CBC, MG, ANEU, ADIFF, GFR ####[place] [address] Potassium [Moles/Vol] 3.9 mmol/L Normal 3.5-5.0 [facility] Comment on above: Performed By: #### M ORPH, BMP, CBC, MG, ANEU, ADIFF, GFR ####[place] [address] Sodium [Moles/Vol] 136 mmol/L Normal 136-145 [facility] Comment on above: Performed By: #### M ORPH, BMP, CBC, MG, ANEU, ADIFF, GFR ####[place] [address] Urea nitrogen [Mass/Vol] 6.0 mg/dL Low 8.0-22.0 [facility] Comment on above: Performed By: #### M ORPH, BMP, CBC, MG, ANEU, ADIFF, GFR ####[place] [address] CBCon 02-20-2024 Erythrocyte distribution width (RBC) [Ratio] 13.9 % Normal 11.5-15.5 [facility] Comment on above: Order Comment: cbc q ns called Екатерина at 02/20/2024 09:35:00 EDT-mlm Performed By: #### M ORPH, BMP, CBC, MG, ANEU, ADIFF, GFR ####[place] [address] Hematocrit (Bld) [Volume fraction] 36.7 % Low 40.0-52.0 [facility] Comment on above: Order Comment: cbc q ns called Екатерина at 02/20/2024 09:35:00 EDT-mlm Performed By: #### M ORPH, BMP, CBC, MG, ANEU, ADIFF, GFR ####[place] [address] Hgb 12.5 G/dL Low 13.0-17.5 [facility] Comment on above: Order Comment: cbc q ns called Екатерина at 02/20/2024 09:35:00 EDT-mlm Performed By: #### M ORPH, BMP, CBC, MG, ANEU, ADIFF, GFR ####[place] [address] MCH (RBC) [Entitic mass] 37.5 pg High 27.0-33.0 [facility] Comment on above: Order Comment: cbc q ns called Екатерина at 02/20/2024 09:35:00 EDT-mlm Performed By: #### M ORPH, BMP, CBC, MG, ANEU, ADIFF, GFR ####[place] [address] MCHC 34.0 G/dL Normal 32.0-36.0 [facility] Comment on above: Order Comment: cbc q ns called Екатерина at 02/20/2024 09:35:00 EDT-mlm Performed By: #### M ORPH, BMP, CBC, MG, ANEU, ADIFF, GFR ####[address] [address] MCV (RBC) [Entitic vol] 110.3 fL High 81.0-100.0 [facility] Comment on above: Order Comment: cbc q ns called Екатерина at 02/20/2024 09:35:00 EDT-mlm Performed By: #### M ORPH, BMP, CBC, MG, ANEU, ADIFF, GFR ####[place] [address] Platelet 283 10 3/mcL Normal 150-450 [facility] Comment on above: Order Comment: cbc q ns called Екатерина at 02/20/2024 09:35:00 EDT-mlm Performed By: #### M ORPH, BMP, CBC, MG, ANEU, ADIFF, GFR ####[place] [address] Platelet mean volume (Bld) [Entitic vol] 7.9 fL Normal 6.4-10.5 [facility] Comment on above: Order Comment: cbc q ns called Екатерина at 02/20/2024 09:35:00 EDT-mlm Performed By: #### M ORPH, BMP, CBC, MG, ANEU, ADIFF, GFR ####[place] [address] RBC 3.33 10 6/mcL Low 4.50-6.00 [facility] Comment on above: Order Comment: cbc q ns called Екатерина at 02/20/2024 09:35:00 EDT-mlm Performed By: #### M ORPH, BMP, CBC, MG, ANEU, ADIFF, GFR ####[place] [address] WBC 7.6 10 3/mcL Normal 4.5-10.8 [facility] Comment on above: Order Comment: cbc q ns called Екатерина at 02/20/2024 09:35:00 EDT-mlm Performed By: #### M ORPH, BMP, CBC, MG, ANEU, ADIFF, GFR ####[address] [address] Christina 02-20-2024 Ferritin [Mass/Vol] 242.0 ng/mL Normal 26.0-388.0 [facility] Comment on above: Performed By: #### A FPS, FERR, HCV1, HIV, ANAIFS, HBSAG, FES ####[place] [address] FESon 02-20-2024 Iron [Mass/Vol] 26 ug/dL Low 65-175 [facility] Comment on above: Performed By: #### A FPS, FERR, HCV1, HIV, ANAIFS, HBSAG, FES ####[place] [address] Iron Sat 18 % Normal [facility] Comment on above: Performed By: #### A FPS, FERR, HCV1, HIV, ANAIFS, HBSAG, FES ####[place] [address] TIBC 147 mcg/dL Low 250-500 [facility] Comment on above: Performed By: #### A FPS, FERR, HCV1, HIV, ANAIFS, HBSAG, FES ####[place] [address] HBSAGon 02-20-2024 Hep B Surf Ag Non-Reactive Normal Non-[facility] Comment on above: Performed By: #### A FPS, FERR, HCV1, HIV, ANAIFS, HBSAG, FES ####[place] [address] HCVon 02-20-2024 Hep C Ab Non-Reactive Normal Non-Reactive [facility] Comment on above: Performed By: #### A FPS, FERR, HCV1, HIV, ANAIFS, HBSAG, FES ####[place] [address] Hep C Ab Int [facility] Comment on above: Result Comment: Nonr eactive: Samples with a value < 0.80 are considered nonreactive (negative) for antibodies to HCV. A negative test result does not exclude the possibility of exposure to or infection with HCV. HCV antibodies may be undetectable in some stages of the infection and in some clinical conditions. See Interp Performed By: #### A FPS, FERR, HCV1, HIV, ANAIFS, HBSAG, FES ####[place] [id number] [place] [address] HIVon 02-20-2024 HIV 1/2 Ab Non-Reactive Normal Non-Reactive [facility] Comment on above: Result Comment: Spec imen is negative for anti-HIV-1 and anti-HIV-2. Performed By: #### A FPS, FERR, HCV1, HIV, ANAIFS, HBSAG, FES ####[place] [address] [place] [address] IGAon 02-20-2024 IgA [Mass/Vol] 634 mg/dL High 40-350 [facility] Comment on above: Result Comment: No te - New Reference Range in effect 19 Performed By: #### I GA #### [place] [address] LABORATORYOrdered By: SYSTEM SYSTEM on 02-20-2024 IgA [Mass/Vol] 634 mg/dL High 40 - 350 mg/dL [facility] Comment on above: Interpretive Data: * *Note - New Reference Range in effect 19 AFP [Mass/Vol] 2.5 ng/mL Normal 0.0 - 8.5 ng/mL [facility] Comment on above: Interpretive Data: T esting performed on the [employer] analyzer using direct chemiluminesent technology. Patient results determined by assays using different manufacturers for methods may not be comparable. Ferritin [Mass/Vol] 242.0 ng/mL Normal 26.0 - 3 88.0 ng/mL ADM SS Iron [Mass/Vol] 26 ug/dL Low 65 - 175 mcg/dL ADM SS Iron binding capacity [Mass/Vol] 147 mcg/dL Low 250 - 500 mcg/dL ADM SS Iron saturation [Mass fraction] 18 % Invalid Interpretation Code ADM SS Anisocytosis Ql (Bld) 1+ *NA* (02/20/24 10:27 AM) Invalid Interpretation Code Workflow SS Basophils (Bld) [#/Vol] 0.1 103/mcL Normal 0.0 - 0.3 10^3/mcL Workflow SS Basophils/100 WBC (Bld) 0.8 % Normal 0.0 - 2.5 % AH Workflow SS Eosinophils (Bld) [#/Vol] 0.1 103/mcL Normal 0.0 - 0.7 10^3/mcL AH Workflow SS Eosinophils/100 WBC (Bld) 1.2 % Normal 0.0 - 6.0 % AH Workflow SS Erythrocyte distribution width (RBC) [Ratio] 13.9 % Normal 11.5 - 15.5 % AH Workflow SS Hematocrit (Bld) [Volume fraction] 36.7 % Low 40.0 - 52.0 % AH Workflow SS Hemoglobin (Bld) [Mass/Vol] 12.5 G/dL Low 13.0 - 17.5 G/dL AH Workflow SS Lymphocytes (Bld) [#/Vol] 1.1 103/mcL Normal 0.9 - 4.3 10^3/mcL AH Workflow SS Lymphocytes/100 WBC (Bld) 14.0 % Low 20.0 - 40.0 % AH Workflow SS Macrocytes Ql (Bld) 2+ *NA* (02/20/24 10:27 AM) Invalid Interpretation Code AH Workflow SS MCH (RBC) [Entitic mass] 37.5 pg High 27.0 - 33.0 pg AH Workflow SS MCHC 34.0 G/dL Normal 32.0 - 36.0 G/dL AH Workflow SS MCV (RBC) [Entitic vol] 110.3 fL High 81.0 - 100.0 fL AH Workflow SS Monocytes (Bld) [#/Vol] 0.5 103/mcL Normal 0.1 - 1.4 10^3/mcL AH Workflow SS Monocytes/100 WBC (Bld) 7.1 % Normal 2.0 - 13.0 % AH Workflow SS Neutrophils (Bld) [#/Vol] 5.8 103/mcL Normal 2.3 - 8.1 10^3/mcL AH Workflow SS Neutrophils/100 WBC (Bld) 76.9 % High 50.0 - 75.0 % AH Workflow SS Platelet mean volume (Bld) [Entitic vol] 7.9 fL Normal 6.4 - 10.5 fL AH Workflow SS Platelets (Bld) [#/Vol] 283 103/mcL Normal 150 - 450 10^3/mcL AH Workflow SS Platelets LM Ql (Bld) Normal *NA* (02/20/24 10:27 AM) Invalid Interpretation Code AH Workflow SS RBC (Bld) [#/Vol] 3.33 106/mcL Low 4.50 - 6.0 0 10^6/mcL Workflow SS WBC (Bld) [#/Vol] 7.6 103/mcL Normal 4.5 - 10.8 10^3/mcL Workflow SS Calcium [Mass/Vol] 7.7 mg/dL Low 8.7 - 10. 4 mg/dL ADM SS Chloride [Moles/Vol] 100 mmol/L Normal 98 - 110 mEq/L ADM SS CO2 [Moles/Vol] 32 mmol/L Normal 22 - 32 mEq/L ADM SS Creatinine [Mass/Vol] 0.69 mg/dL Normal 0.60 - 1.40 mg/dL AH ADM SS Comment on above: Interpretive Data: T esting performed on [employer] analyzer using enzymatic creatinine methodology. Electrolyte Balance 4.0 mEq/L Normal 4.0 - 15 .0 mEq/L ADM SS GFR/1.73 sq M.predicted among blacks MDRD (S/P/Bld) [Vol rate/Area] ml/min/1.73sqm Invalid Interpretation Code [facility] S Comment on above: Interpretive Data: GFR Population mean for , Non- Americans Ages 20-29 = 116 mL/min/1.73 sq.m. Ages 30-39 = 107 mL/min/1.73 sq.m. Ages 40-49 = 99 mL/min/1.73 sq.m. Ages 50-59 = 93 mL/min/1.73 sq.m. Ages 60-69 = 85 mL/min/1.73 sq.m. Ages 70+ = 75 mL/min/1.73 sq.m. Chronic Kidney Disease: Less than 60 mL/min/1.73 square meters End Stage Renal Disease: Less than 15 mL/min/1.73 square meters GFR/1.73 sq M.predicted among non-blacks MDRD (S/P/Bld) [Vol rate/Area] ml/min/1.73sqm Invalid Interpretation Code [facility]ON [employer] [facility] S Comment on above: Interpretive Data: GFR Population mean for , Non- Americans Ages 20-29 = 116 mL/min/1.73 sq.m. Ages 30-39 = 107 mL/min/1.73 sq.m. Ages 40-49 = 99 mL/min/1.73 sq.m. Ages 50-59 = 93 mL/min/1.73 sq.m. Ages 60-69 = 85 mL/min/1.73 sq.m. Ages 70+ = 75 mL/min/1.73 sq.m. Chronic Kidney Disease: Less than 60 mL/min/1.73 square meters End Stage Renal Disease: Less than 15 mL/min/1.73 square meters Glucose [Mass/Vol] 89 mg/dL Normal 70 - 110 mg/dL AH ADM SS Magnesium [Mass/Vol] 1.8 mg/dL Normal 1.6 - 2.4 mg/dL AH ADM SS Potassium [Moles/Vol] 3.9 mmol/L Normal 3.5 - 5.0 mEq/L AH ADM SS Sodium [Moles/Vol] 136 mmol/L Normal 136 - 145 mEq/L AH ADM SS Urea nitrogen [Mass/Vol] 6.0 mg/dL Low 8.0 - 22.0 mg/dL AH ADM SS Urea nitrogen/Creatinine [Mass ratio] 8.7 ratio Low 10.0 - 22.0 ratio AH ADM SS LABORATORYOrdered By: Kevon Cristina on 02-20-2024 HBV surface Ag IA Ql Non-Reactive (02/20/24 1:10 PM) Normal Non-Reactive AH ADM SS HCV Ab IA Ql Non-Reactive (02/20/24 1:10 PM) Normal Non-Reactive AH ADM SS HCV Ab IA Ql Nonreactive: Samples with a value < 0.80 are considered nonreactive (negative) for antibodies to HCV.A negative test result does not exclude the possibility of exposure to or infection with HCV. HCV antibodies may be undetectable in some stages of the infection and in some clinical conditions. Invalid Interpretation Code Chemistry S HIV 1+2 Ab IA Ql Negative Invalid Interpretation Code Chemistry S HIV 1/2 Ab Non-Reactive (02/20/24 1:10 PM) Normal Non-Reactive ADM SS MGon 02-20-2024 Magnesium [Mass/Vol] 1.8 mg/dL Normal 1.6-2.4 [facility] Comment on above: Performed By: #### M ORPH, BMP, CBC, MG, ANEU, ADIFF, GFR ####[place] [address] .Auto Diffon 09-27-2024 Basophil, Absolute 0.1 10 3/mcL Normal 0.0-0.3 [facility] Comment on above: Performed By: #### A DIFF, CBC, ANEU, AMM, GFR, PRO, CMP ####[address] [address] Basophils/100 WBC (Bld) 1.2 % Normal 0.0-2.5 [facility] Comment on above: Performed By: #### A DIFF, CBC, ANEU, AMM, GFR, PRO, CMP ####[address] [address] Eosinophil, Absolute 0.1 10 3/mcL Normal 0.0-0.7 [facility] Comment on above: Performed By: #### A DIFF, CBC, ANEU, AMM, GFR, PRO, CMP ####[address] [address] Eosinophils/100 WBC (Bld) 1.7 % Normal 0.0-6.0 [facility] Comment on above: Performed By: #### A DIFF, CBC, ANEU, AMM, GFR, PRO, CMP ####[address] [address] Lymphocyte, Absolute 1.8 10 3/mcL Normal 0.9-4.3 [facility] Comment on above: Performed By: #### A DIFF, CBC, ANEU, AMM, GFR, PRO, CMP ####[address] [address] Lymphocytes/100 WBC (Bld) 31.1 % Normal 20.0-40.0 [facility] Comment on above: Performed By: #### A DIFF, CBC, ANEU, AMM, GFR, PRO, CMP ####[address] [address] Monocyte, Absolute 0.6 10 3/mcL Normal 0.1-1.4 [facility] Comment on above: Performed By: #### A DIFF, CBC, ANEU, AMM, GFR, PRO, CMP ####[address] [address] Monocytes/100 WBC (Bld) 9.7 % Normal 2.0-13.0 [facility] Comment on above: Performed By: #### A DIFF, CBC, ANEU, AMM, GFR, PRO, CMP ####[address] [address] Neutrophils/100 WBC (Bld) 56.3 % Normal 50.0-75.0 [facility] Comment on above: Performed By: #### A DIFF, CBC, ANEU, AMM, GFR, PRO, CMP ####[address] [address] .GFRon 02-19-2024 GFR Non- >[address] [facility] Comment on above: Result Comment: GFR Population mean for , Non- Americans Ages 20-29 = 116 mL/min/1.73 sq.m. Ages 30-39 = 107 mL/min/1.73 sq.m. Ages 40-49 = 99 mL/min/1.73 sq.m. Ages 50-59 = 93 mL/min/1.73 sq.m. Ages 60-69 = 85 mL/min/1.73 sq.m. Ages 70+ = 75 mL/min/1.73 sq.m. Chronic Kidney Disease: Less than 60 mL/min/1.73 square meters End Stage Renal Disease: Less than 15 mL/min/1.73 square meters Performed By: #### A DIFF, CBC, ANEU, AMM, GFR, PRO, CMP ####[address] [address] GFR >[address] [facility] Comment on above: Result Comment: GFR Population mean for , Non- Americans Ages 20-29 = 116 mL/min/1.73 sq.m. Ages 30-39 = 107 mL/min/1.73 sq.m. Ages 40-49 = 99 mL/min/1.73 sq.m. Ages 50-59 = 93 mL/min/1.73 sq.m. Ages 60-69 = 85 mL/min/1.73 sq.m. Ages 70+ = 75 mL/min/1.73 sq.m. Chronic Kidney Disease: Less than 60 mL/min/1.73 square meters End Stage Renal Disease: Less than 15 mL/min/1.73 square meters Performed By: #### A DIFF, CBC, ANEU, AMM, GFR, PRO, CMP ####[place] [address] .NEUABSon 02-19-2024 Neutrophil, Absolute 3.2 10 3/mcL Normal 2.3-8.1 [facility] Comment on above: Performed By: #### A DIFF, CBC, ANEU, AMM, GFR, PRO, CMP ####[place] [id number] Eleazar 02-19-2024 Ammonia (P) [Mass/Vol] ug/dL Low 11-32 [facility] Comment on above: Performed By: #### A DIFF, CBC, ANEU, AMM, GFR, PRO, CMP ####[place] [address] BFPRon 02-19-2024 Body Fluid Path Review Normal [facility] Comment on above: Order Comment: Added by Discern Result Comment: Nega tive for malignant cells. (This evaluation is based on a screening review of one cytospin slide prepared primarily for differential cell count; if clinical index of suspicion is high, Cytology evaluation is recommended, as clinically indicated) Electronically signed by: NARCISO SELLERS MD 02.19.2024 10:47 EDT Performed By: #### A LBBF, BFPR, LDBF, GLUBF, BFCT, PROBF ####[place] [address] CBCon 02-19-2024 Erythrocyte distribution width (RBC) [Ratio] 14.1 % Normal 11.5-15.5 [facility] Comment on above: Performed By: #### A DIFF, CBC, ANEU, AMM, GFR, PRO, CMP ####[place] [address] Hematocrit (Bld) [Volume fraction] 33.9 % Low 40.0-52.0 [facility] Comment on above: Performed By: #### A DIFF, CBC, ANEU, AMM, GFR, PRO, CMP ####[place] [address] Hgb 11.7 G/dL Low 13.0-17.5 [facility] Comment on above: Performed By: #### A DIFF, CBC, ANEU, AMM, GFR, PRO, CMP ####[place] [address] MCH (RBC) [Entitic mass] 37.4 pg High 27.0-33.0 [facility] Comment on above: Performed By: #### A DIFF, CBC, ANEU, AMM, GFR, PRO, CMP ####[place] [address] MCHC 34.4 G/dL Normal 32.0-36.0 [facility] Comment on above: Performed By: #### A DIFF, CBC, ANEU, AMM, GFR, PRO, CMP ####[place] [address] MCV (RBC) [Entitic vol] 108.8 fL High 81.0-100.0 [facility] Comment on above: Performed By: #### A DIFF, CBC, ANEU, AMM, GFR, PRO, CMP ####[place] [address] Platelet 270 10 3/mcL Normal 150-450 [facility] Comment on above: Performed By: #### A DIFF, CBC, ANEU, AMM, GFR, PRO, CMP ####[place] [address] Platelet mean volume (Bld) [Entitic vol] 8.3 fL Normal 6.4-10.5 [facility] Comment on above: Performed By: #### A DIFF, CBC, ANEU, AMM, GFR, PRO, CMP ####[place] [address] RBC 3.12 10 6/mcL Low 4.50-6.00 [facility] Comment on above: Performed By: #### A DIFF, CBC, ANEU, AMM, GFR, PRO, CMP ####[place] [address] WBC 5.8 10 3/mcL Normal 4.5-10.8 [facility] Comment on above: Performed By: #### A DIFF, CBC, ANEU, AMM, GFR, PRO, CMP ####[place] [id number] CMPon 02-19-2024 Albumin Level 2.0 G/dL Low 3.2-4.8 [facility] Comment on above: Performed By: #### A DIFF, CBC, ANEU, AMM, GFR, PRO, CMP ####[place] [address] Albumin/Globulin [Mass ratio] 0.7 {ratio} Low 0.9-1.6 [facility] Comment on above: Performed By: #### A DIFF, CBC, ANEU, AMM, GFR, PRO, CMP ####[place] [address] ALP [Catalytic activity/Vol] 98 U/L Normal 38-126 [facility] Comment on above: Performed By: #### A DIFF, CBC, ANEU, AMM, GFR, PRO, CMP ####[place] [address] ALT [Catalytic activity/Vol] 7 U/L Low 12-55 [facility] Comment on above: Performed By: #### A DIFF, CBC, ANEU, AMM, GFR, PRO, CMP ####[place] [address] AST [Catalytic activity/Vol] 19 U/L Normal 8-34 [facility] Comment on above: Performed By: #### A DIFF, CBC, ANEU, AMM, GFR, PRO, CMP ####[place] [address] Bili Total 0.80 mg/dL Normal 0.20-1.20 [facility] Comment on above: Result Comment: Use of this assay is not recommended for patients undergoing treatment with eltrombopag due to the potential for falsely elevated results. Performed By: #### A DIFF, CBC, ANEU, AMM, GFR, PRO, CMP ####[place] [address] Calcium [Mass/Vol] 7.7 mg/dL Low 8.7-10.4 [facility] Comment on above: Performed By: #### A DIFF, CBC, ANEU, AMM, GFR, PRO, CMP ####[address] [address] Chloride [Moles/Vol] 104 mmol/L Normal 98-110 [facility] Comment on above: Performed By: #### A DIFF, CBC, ANEU, AMM, GFR, PRO, CMP ####[address] [address] CO2 [Moles/Vol] 30 mmol/L Normal 22-32 [facility] Comment on above: Performed By: #### A DIFF, CBC, ANEU, AMM, GFR, PRO, CMP ####[place] [id number] Creatinine [Mass/Vol] 0.74 mg/dL Normal 0.60-1.40 [facility] Comment on above: Result Comment: Test ing performed on [employer] analyzer using enzymatic creatinine methodology. Performed By: #### A DIFF, CBC, ANEU, AMM, GFR, PRO, CMP ####[place] [address] Electrolyte Balance 5.0 mEq/L Normal 4.0-15.0 [facility] Comment on above: Performed By: #### A DIFF, CBC, ANEU, AMM, GFR, PRO, CMP ####[place] [address] Globulin 2.8 G/dL Normal 1.5-3.8 [facility] Comment on above: Performed By: #### A DIFF, CBC, ANEU, AMM, GFR, PRO, CMP ####[place] [id number] Glucose [Mass/Vol] 85 mg/dL Normal 70-110 [facility] Comment on above: Performed By: #### A DIFF, CBC, ANEU, AMM, GFR, PRO, CMP ####[place] [id number] Potassium [Moles/Vol] 3.4 mmol/L Low 3.5-5.0 [facility] Comment on above: Performed By: #### A DIFF, CBC, ANEU, AMM, GFR, PRO, CMP ####[address] [place] [address] Sodium [Moles/Vol] 139 mmol/L Normal 136-145 [facility] Comment on above: Performed By: #### A DIFF, CBC, ANEU, AMM, GFR, PRO, CMP ####[address] [address] Total Protein 4.8 G/dL Low 5.7-8.2 [facility] Comment on above: Result Comment: No te - New Reference Range in effect 19 Performed By: #### A DIFF, CBC, ANEU, AMM, GFR, PRO, CMP ####[address] [address] Urea nitrogen [Mass/Vol] mg/dL Low 8.0-22.0 [facility] Comment on above: Performed By: #### A DIFF, CBC, ANEU, AMM, GFR, PRO, CMP ####[address] [address] Urea nitrogen/Creatinine [Mass ratio] mg/mg Low 10.0-22.0 [facility] Comment on above: Performed By: #### A DIFF, CBC, ANEU, AMM, GFR, PRO, CMP ####[address] [address] LABORATORYOrdered By: SYSTEM SYSTEM on 02-19-2024 Albumin BCP dye [Mass/Vol] 2.0 G/dL Low 3.2 - 4.8 G/dL ADM SS Albumin/Globulin [Mass ratio] 0.7 {ratio} Low 0.9 - 1.6 ratio ADM SS ALP [Catalytic activity/Vol] 98 U/L Normal 38 - 126 U/L ADM SS ALT No additional P-5'-P [Catalytic activity/Vol] 7 U/L Low 12 - 55 U/L ADM SS Ammonia (P) [Mass/Vol] mcmol/L Low 11 - 32 mcmol/L ADM SS AST [Catalytic activity/Vol] 19 U/L Normal 8 - 34 U/L ADM SS Bilirubin [Mass/Vol] 0.80 mg/dL Normal 0.20 - 1.20 mg/dL ADM SS Comment on above: Interpretive Data: U se of this assay is not recommended for patients undergoing treatment with eltrombopag due to the potential for falsely elevated results. Globulin 2.8 G/dL Normal 1.5 - 3.8 G/dL ADM SS Protein [Mass/Vol] 4.8 G/dL Low 5.7 - 8.2 G/dL ADM Comment on above: Interpretive Data: * *Note - New Reference Range in effect 19 PT Coag (PPP) [Time] 12.6 s Normal 9.0 - 14.4 seconds [facility] Comment on above: Interpretive Data: E ffective 12/07/07, Protime results may be affected by some antibiotics (i.e. Ciprofloxacin, Azithromycin, Bactrim) which may potentiate the action of oral anticoagulants, with further increases in Protime/INR. PT International Ratio 1.1 ratio Invalid Interpretation Code [facility] Comment on above: Interpretive Data: Laureen guido [employer] (CHEST, 1991, 102:[id number]) recommended therapeutic range for oral anticoagulant therapy is: LOW RISK: Prophylaxis of venous thrombosis INR: 2.0-3.0 Treatment of pulmonary embolism 2.0-3.0 Prevention of systemic embolism 2.0-3.0 HIGH RISK: Mechanical prosthetic valves 2.5-3.5 PROon 02-19-2024 INR Coag (PPP) [Relative time] 1.1 {INR} Normal [facility] Comment on above: Result Comment: [employer] (CHEST, 1991, [id number]) recommended therapeutic range for oral anticoagulant therapy is: LOW RISK: Prophylaxis of venous thrombosis INR: 2.0-3.0 Treatment of pulmonary embolism 2.0-3.0 Prevention of systemic embolism 2.0-3.0 HIGH RISK: Mechanical prosthetic valves 2.5-3.5 Performed By: #### A DIFF, CBC, ANEU, AMM, GFR, PRO, CMP ####[address] [address] PT Coag (PPP) [Time] 12.6 s Normal 9.0-14.4 [facility] Comment on above: Result Comment: Effe ctive 12/07/07, Protime results may be affected by some antibiotics (i.e. Ciprofloxacin, Azithromycin, Bactrim) which may potentiate the action of oral anticoagulants, with further increases in Protime/INR. Performed By: #### A DIFF, CBC, ANEU, AMM, GFR, PRO, CMP ####[address] [address] .Auto Diffon 02-18-2024 Basophil, Absolute 0.0 10 3/mcL Normal 0.0-0.3 [facility] Comment on above: Performed By: #### A DIFF, GFR, MG, HFP, BMP, ANEU, CBC ####[address] [address] Basophils/100 WBC (Bld) 0.6 % Normal 0.0-2.5 [facility] Comment on above: Performed By: #### A DIFF, GFR, MG, HFP, BMP, ANEU, CBC ####[address] [address] Eosinophil, Absolute 0.1 10 3/mcL Normal 0.0-0.7 [facility] Comment on above: Performed By: #### A DIFF, GFR, MG, HFP, BMP, ANEU, CBC ####[address] [address] Eosinophils/100 WBC (Bld) 1.2 % Normal 0.0-6.0 [facility] Comment on above: Performed By: #### A DIFF, GFR, MG, HFP, BMP, ANEU, CBC ####[address] [address] Lymphocyte, Absolute 1.0 10 3/mcL Normal 0.9-4.3 [facility] Comment on above: Performed By: #### A DIFF, GFR, MG, HFP, BMP, ANEU, CBC ####[address] [address] Lymphocytes/100 WBC (Bld) 15.5 % Low 20.0-40.0 [facility] Comment on above: Performed By: #### A DIFF, GFR, MG, HFP, BMP, ANEU, CBC ####[address] [address] Monocyte, Absolute 0.6 10 3/mcL Normal 0.1-1.4 [facility] Comment on above: Performed By: #### A DIFF, GFR, MG, HFP, BMP, ANEU, CBC ####[place] [address] [place] [address] Monocytes/100 WBC (Bld) 9.9 % Normal 2.0-13.0 [facility] Comment on above: Performed By: #### A DIFF, GFR, MG, HFP, BMP, ANEU, CBC ####[place] [address] [place] [address] Neutrophils/100 WBC (Bld) 72.8 % Normal 50.0-75.0 [facility] Comment on above: Performed By: #### A DIFF, GFR, MG, HFP, BMP, ANEU, CBC ####[address] [address] .GFRon 02-18-2024 GFR >60 [facility] Comment on above: Result Comment: GFR Population mean for , Non- Americans Ages 20-29 = 116 mL/min/1.73 sq.m. Ages 30-39 = 107 mL/min/1.73 sq.m. Ages 40-49 = 99 mL/min/1.73 sq.m. Ages 50-59 = 93 mL/min/1.73 sq.m. Ages 60-69 = 85 mL/min/1.73 sq.m. Ages 70+ = 75 mL/min/1.73 sq.m. Chronic Kidney Disease: Less than 60 mL/min/1.73 square meters End Stage Renal Disease: Less than 15 mL/min/1.73 square meters Performed By: #### A DIFF, GFR, MG, HFP, BMP, ANEU, CBC ####[address] [address] GFR Non- >60 [facility] Comment on above: Result Comment: GFR Population mean for , Non- Americans Ages 20-29 = 116 mL/min/1.73 sq.m. Ages 30-39 = 107 mL/min/1.73 sq.m. Ages 40-49 = 99 mL/min/1.73 sq.m. Ages 50-59 = 93 mL/min/1.73 sq.m. Ages 60-69 = 85 mL/min/1.73 sq.m. Ages 70+ = 75 mL/min/1.73 sq.m. Chronic Kidney Disease: Less than 60 mL/min/1.73 square meters End Stage Renal Disease: Less than 15 mL/min/1.73 square meters Performed By: #### A DIFF, GFR, MG, HFP, BMP, ANEU, CBC ####[address] [address] .NEUABSon 02-18-2024 Neutrophil, Absolute 4.5 10 3/mcL Normal 2.3-8.1 [facility] Comment on above: Performed By: #### A DIFF, GFR, MG, HFP, BMP, ANEU, CBC ####[place] [address] ALBBFon 02-18-2024 Albumin Body Fluid Spec Type Peritoneal fl Normal [facility] Comment on above: Result Comment: The reference interval(s) and other method performance specifications have not been established for this body fluid. The test result must be integrated into the clinical content for interpretation. Performed By: #### A LBBF, BFPR, LDBF, GLUBF, BFCT, PROBF ####[place] [address] Albumin BF <0.[address] [facility] Comment on above: Performed By: #### A LBBF, BFPR, LDBF, GLUBF, BFCT, PROBF ####[place] [address] B12on 02-18-2024 Cobalamin (Vitamin B12) [Mass/Vol] 454 pg/mL Normal 211-911 [facility] Comment on above: Order Comment: add o n lab Performed By: #### F OL, B12 ####[place] [address] BFCTon 02-18-2024 Cells Counted BF [address] [facility] Comment on above: Performed By: #### A LBBF, BFPR, LDBF, GLUBF, BFCT, PROBF ####[place] [id number] Lymphocytes/100 WBC (Bld) 26 % Normal [facility] Comment on above: Performed By: #### A LBBF, BFPR, LDBF, GLUBF, BFCT, PROBF ####[place] [id number] Mesothelial Cell % BF 14 % Normal [facility] Comment on above: Performed By: #### A LBBF, BFPR, LDBF, GLUBF, BFCT, PROBF ####[address] [address] Mononuclear cell % BF 19 % [facility] Comment on above: Performed By: #### A LBBF, BFPR, LDBF, GLUBF, BFCT, PROBF ####[place] [address] Neutrophils/100 WBC (Bld) 41 % [facility] Comment on above: Performed By: #### A LBBF, BFPR, LDBF, GLUBF, BFCT, PROBF ####[place] [address] Body Fluid Source Ascites fluid Normal [facility] Comment on above: Result Comment: Refe rence ranges have not been established for this body fluid. The test results must be integrated into the clinical context for interpretation. Performed By: #### A LBBF, BFPR, LDBF, GLUBF, BFCT, PROBF ####[place] [address] Total Nucleated Cells 232 /mm3 [facility] Comment on above: Performed By: #### A LBBF, BFPR, LDBF, GLUBF, BFCT, PROBF ####[place] [address] BMPon 02-18-2024 Calcium [Mass/Vol] 7.5 mg/dL Low 8.7-10.4 [facility] Comment on above: Order Comment: Aviva porras for 0501 the morning of patient admission. Performed By: #### A DIFF, GFR, MG, HFP, BMP, ANEU, CBC ####[place] [address] BUN/Creatinine Ratio Unable to Calculate Normal 10.0-22.0 [facility] Comment on above: Order Comment: Routi ne for 0501 the morning of patient admission. Result Comment: Unab le to calculate this test result accurately. Results used to calculate this test are outside the reportable range. Performed By: #### A DIFF, GFR, MG, HFP, BMP, ANEU, CBC ####[place] [address] Urea nitrogen [Mass/Vol] mg/dL Low 8.0-22.0 [facility] Comment on above: Order Comment: Routi ne for 0501 the morning of patient admission. Performed By: #### A DIFF, GFR, MG, HFP, BMP, ANEU, CBC ####[place] [address] Chloride [Moles/Vol] 104 mmol/L Normal 98-110 [facility] Comment on above: Order Comment: Routi ne for 0501 the morning of patient admission. Performed By: #### A DIFF, GFR, MG, HFP, BMP, ANEU, CBC ####[place] [address] CO2 [Moles/Vol] 31 mmol/L Normal 22-32 [facility] Comment on above: Order Comment: Routi ne for 0501 the morning of patient admission. Performed By: #### A DIFF, GFR, MG, HFP, BMP, ANEU, CBC ####[place] [address] Creatinine [Mass/Vol] 0.67 mg/dL Normal 0.60-1.40 [facility] Comment on above: Order Comment: Routi ne for 0501 the morning of patient admission. Result Comment: Test ing performed on [employer] analyzer using enzymatic creatinine methodology. Performed By: #### A DIFF, GFR, MG, HFP, BMP, ANEU, CBC ####[place] [address] Electrolyte Balance 4.0 mEq/L Normal 4.0-15.0 [facility] Comment on above: Order Comment: Routi ne for 0501 the morning of patient admission. Performed By: #### A DIFF, GFR, MG, HFP, BMP, ANEU, CBC ####[place] [phone] Glucose [Mass/Vol] 81 mg/dL Normal 70-110 [facility] Comment on above: Order Comment: Routi ne for 0501 the morning of patient admission. Performed By: #### A DIFF, GFR, MG, HFP, BMP, ANEU, CBC ####[place] [address] Potassium [Moles/Vol] 3.7 mmol/L Normal 3.5-5.0 [facility] Comment on above: Order Comment: Routi ne for 0501 the morning of patient admission. Performed By: #### A DIFF, GFR, MG, HFP, BMP, ANEU, CBC ####[place] [address] Sodium [Moles/Vol] 139 mmol/L Normal 136-145 [facility] Comment on above: Order Comment: Routi ne for 0501 the morning of patient admission. Performed By: #### A DIFF, GFR, MG, HFP, BMP, ANEU, CBC ####[place] [address] CBCon 02-18-2024 Erythrocyte distribution width (RBC) [Ratio] 14.0 % Normal 11.5-15.5 [facility] Comment on above: Order Comment: Routi ne for 0501 the morning of patient admission. Performed By: #### A DIFF, GFR, MG, HFP, BMP, ANEU, CBC ####[place] [address] Hematocrit (Bld) [Volume fraction] 33.5 % Low 40.0-52.0 [facility] Comment on above: Order Comment: Routi ne for 0501 the morning of patient admission. Performed By: #### A DIFF, GFR, MG, HFP, BMP, ANEU, CBC ####[place] [address] Hgb 11.6 G/dL Low 13.0-17.5 [facility] Comment on above: Order Comment: Routi ne for 0501 the morning of patient admission. Performed By: #### A DIFF, GFR, MG, HFP, BMP, ANEU, CBC ####[place] [address] MCH (RBC) [Entitic mass] 38.1 pg High 27.0-33.0 [facility] Comment on above: Order Comment: Routi ne for 0501 the morning of patient admission. Performed By: #### A DIFF, GFR, MG, HFP, BMP, ANEU, CBC ####[place] [address] MCHC 34.5 G/dL Normal 32.0-36.0 [facility] Comment on above: Order Comment: Routi ne for 0501 the morning of patient admission. Performed By: #### A DIFF, GFR, MG, HFP, BMP, ANEU, CBC ####[place] [address] MCV (RBC) [Entitic vol] 110.6 fL High 81.0-100.0 [facility] Comment on above: Order Comment: Routi ne for 0501 the morning of patient admission. Performed By: #### A DIFF, GFR, MG, HFP, BMP, ANEU, CBC ####[place] [address] Platelet 295 10 3/mcL Normal 150-450 [facility] Comment on above: Order Comment: Routi ne for 0501 the morning of patient admission. Performed By: #### A DIFF, GFR, MG, HFP, BMP, ANEU, CBC ####[place] [address] Platelet mean volume (Bld) [Entitic vol] 7.7 fL Normal 6.4-10.5 [facility] Comment on above: Order Comment: Routi ne for 0501 the morning of patient admission. Performed By: #### A DIFF, GFR, MG, HFP, BMP, ANEU, CBC ####[place] [address] RBC 3.03 10 6/mcL Low 4.50-6.00 [facility] Comment on above: Order Comment: Routi ne for 0501 the morning of patient admission. Performed By: #### A DIFF, GFR, MG, HFP, BMP, ANEU, CBC ####[place] [address] WBC 6.2 10 3/mcL Normal 4.5-10.8 [facility] Comment on above: Order Comment: Josemann porras for 0501 the morning of patient admission. Performed By: #### A DIFF, GFR, MG, HFP, BMP, ANEU, CBC ####[place] [address] FOLon 02-18-2024 Folate 2.63 ng/mL Low 5.38-24.00 [facility] Comment on above: Order Comment: Add o n lab Performed By: #### F OL, B12 ####[place] [address] GLUBFon 02-18-2024 Glucose Body Fluid Spec Type Peritoneal fl Normal [facility] Comment on above: Result Comment: The reference interval(s) and other method performance specifications have not been established for this body fluid. The test result must be integrated into the clinical content for interpretation. Performed By: #### A LBBF, BFPR, LDBF, GLUBF, BFCT, PROBF ####[place] [address] Glucose BF 115.0 mg/dL Normal [facility] Comment on above: Performed By: #### A LBBF, BFPR, LDBF, GLUBF, BFCT, PROBF ####[place] [address] HFPon 02-18-2024 Bili Indirect 0.4 mg/dL Normal 0.1-10.0 [facility] Comment on above: Performed By: #### A DIFF, GFR, MG, HFP, BMP, ANEU, CBC ####[place] [address] Albumin Level 1.5 G/dL Low 3.2-4.8 [facility] Comment on above: Performed By: #### A DIFF, GFR, MG, HFP, BMP, ANEU, CBC ####[place] [address] Albumin/Globulin [Mass ratio] 0.5 {ratio} Low 0.9-1.6 [facility] Comment on above: Performed By: #### A DIFF, GFR, MG, HFP, BMP, ANEU, CBC ####[address] [address] ALP [Catalytic activity/Vol] 102 U/L Normal 38-126 [facility] Comment on above: Performed By: #### A DIFF, GFR, MG, HFP, BMP, ANEU, CBC ####[place] [address] ALT [Catalytic activity/Vol] 10 U/L Low 12-55 [facility] Comment on above: Performed By: #### A DIFF, GFR, MG, HFP, BMP, ANEU, CBC ####[place] [address] AST [Catalytic activity/Vol] 21 U/L Normal 8-34 [facility] Comment on above: Performed By: #### A DIFF, GFR, MG, HFP, BMP, ANEU, CBC ####[place] [address] Bili Direct 0.4 mg/dL Normal 0.0-0.4 [facility] Comment on above: Result Comment: Use of this assay is not recommended for patients undergoing treatment with eltrombopag due to the potential for falsely elevated results. Performed By: #### A DIFF, GFR, MG, HFP, BMP, ANEU, CBC ####[place] [address] Bili Total 0.80 mg/dL Normal 0.20-1.20 [facility] Comment on above: Result Comment: Use of this assay is not recommended for patients undergoing treatment with eltrombopag due to the potential for falsely elevated results. Performed By: #### A DIFF, GFR, MG, HFP, BMP, ANEU, CBC ####[place] [address] Globulin 3.0 G/dL Normal 1.5-3.8 [facility] Comment on above: Performed By: #### A DIFF, GFR, MG, HFP, BMP, ANEU, CBC ####[place] [address] Total Protein 4.5 G/dL Low 5.7-8.2 [facility] Comment on above: Result Comment: No te - New Reference Range in effect 19 Performed By: #### A DIFF, GFR, MG, HFP, BMP, ANEU, CBC ####[place] [address] LABORATORYOrdered By: SYSTEM SYSTEM on 02-18-2024 Albumin (Body fld) [Mass/Vol] G/dL Invalid Interpretation Code ADM SS Glucose (Body fld) [Mass/Vol] 115.0 mg/dL Invalid Interpretation Code ADM SS LDH (Body fld) [Catalytic activity/Vol] 50.0 1 Invalid Interpretation Code ADM SS Protein (Body fld) [Mass/Vol] G/dL Invalid Interpretation Code ADM SS Albumin BCP dye [Mass/Vol] 1.5 G/dL Low 3.2 - 4.8 G/dL ADM SS Albumin/Globulin [Mass ratio] 0.5 {ratio} Low 0.9 - 1.6 ratio ADM SS ALP [Catalytic activity/Vol] 102 U/L Normal 38 - 126 U/L ADM SS ALT No additional P-5'-P [Catalytic activity/Vol] 10 U/L Low 12 - 55 U/L ADM SS AST [Catalytic activity/Vol] 21 U/L Normal 8 - 34 U/L ADM SS Bili Indirect 0.4 mg/dL Normal 0.1 - 10.0 mg/dL Chemistry S Bilirubin [Mass/Vol] 0.80 mg/dL Normal 0.20 - 1.20 mg/dL ADM SS Comment on above: Interpretive Data: U se of this assay is not recommended for patients undergoing treatment with eltrombopag due to the potential for falsely elevated results. Bilirubin.conjugate d [Mass/Vol] 0.4 mg/dL Normal 0.0 - 0.4 mg/dL ADM SS Comment on above: Interpretive Data: U se of this assay is not recommended for patients undergoing treatment with eltrombopag due to the potential for falsely elevated results. Cobalamin (Vitamin B12) [Mass/Vol] 454 pg/mL Normal 211 - 911 pg/mL ADM SS Folate [Mass/Vol] 2.63 ng/mL Low 5.38 - 24. 00 ng/mL ADM SS Globulin 3.0 G/dL Normal 1.5 - 3.8 G/dL AH ADM SS Magnesium [Mass/Vol] 1.5 mg/dL Low 1.6 - 2.4 mg/dL AH ADM SS Protein [Mass/Vol] 4.5 G/dL Low 5.7 - 8.2 G/dL AH ADM SS Comment on above: Interpretive Data: * *Note - New Reference Range in effect 19 LABORATORYOrdered By: Cameron masters Adrianna on 02-18-2024 Albumin Body Fluid Spec Type Peritoneal fl 29 (02/18/24 2:30 PM) Normal Chemistry S Comment on above: Interpretive Data: T he reference interval(s) and other method performance specifications have not been established for this body fluid. The test result must be integrated into the clinical content for interpretation. Cells Counted Total (Unsp spec) [#] 100 1 Invalid Interpretation Code AH Manual Heme SS Glucose Body Fluid Spec Type Peritoneal fl 31 (02/18/24 2:30 PM) Normal AH Chemistry S Comment on above: Interpretive Data: T he reference interval(s) and other method performance specifications have not been established for this body fluid. The test result must be integrated into the clinical content for interpretation. LDH Body Fluid Spec Type Peritoneal fl 32 (02/18/24 2:30 PM) Normal AH Chemistry S Comment on above: Interpretive Data: T he reference interval(s) and other method performance specifications have not been established for this body fluid. The test result must be integrated into the clinical content for interpretation. . Lymphocytes/100 WBC (Body fld) 26 % Invalid Interpretation Code AH Manual Heme SS Mesothelial Cell % BF 14 % Invalid Interpretation Code AH Manual Heme SS Monocytes+Macrophag es/100 WBC (Body fld) 19 % Invalid Interpretation Code AH Manual Heme SS Neutrophils/100 WBC (Body fld) 41 % Invalid Interpretation Code AH Manual Heme SS Nucleated RBC/100 WBC (Bld) [Ratio] 232 % Invalid Interpretation Code AH Manual Heme SS Protein BF Type Peritoneal fl 27 (02/18/24 2:30 PM) Normal AH Chemistry S Comment on above: Interpretive Data: T he reference interval(s) and other method performance specifications have not been established for this body fluid. The test result must be integrated into the clinical content for interpretation. Specimen source Nom (Body fld) Ascites fluid Invalid Interpretation Code AH Manual Heme SS Comment on above: Interpretive Data: R eference ranges have not been established for this body fluid. The test results must be integrated into the clinical context for interpretation. LDBFon 02-18-2024 LDH Body Fluid Spec Type Peritoneal fl Normal [facility] Comment on above: Result Comment: The reference interval(s) and other method performance specifications have not been established for this body fluid. The test result must be integrated into the clinical content for interpretation. . Performed By: #### A LBBF, BFPR, LDBF, GLUBF, BFCT, PROBF ####[address] [address] LDH BF 50.0 U/L Normal [facility] Comment on above: Performed By: #### A LBBF, BFPR, LDBF, GLUBF, BFCT, PROBF ####[place] [address] MGon 02-18-2024 Magnesium [Mass/Vol] 1.5 mg/dL Low 1.6-2.4 [facility] Comment on above: Performed By: #### A DIFF, GFR, MG, HFP, BMP, ANEU, CBC ####[address] [address] No Panel Informationon 02-17 Culture Body Fluid Culture has been rec eived in lab and is no growth to date. Routine cultures are held for 5 days. [facility] Work Phone: GS Sedimented 2+ Mononuclear cells 1+ Polymorphonuclear cells No organisms seen. [facility] Work Phone: PROBFon 02-18-2024 Protein BF Type Peritoneal fl Normal [facility] Comment on above: Result Comment: The reference interval(s) and other method performance specifications have not been established for this body fluid. The test result must be integrated into the clinical content for interpretation. Performed By: #### A LBBF, BFPR, LDBF, GLUBF, BFCT, PROBF ####[place] [address] Protein BF <2.[address] [facility] Comment on above: Performed By: #### A LBBF, BFPR, LDBF, GLUBF, BFCT, PROBF ####[address] [address] .Auto Diffon 02-17-2024 Basophil, Absolute 0.1 10 3/mcL Normal 0.0-0.3 [facility] Comment on above: Performed By: #### A MM, GFR, TROPHS, ANEU, CBC, PBNP, CMP, MDW, ADIFF, MORPH ####[address] [address] Basophils/100 WBC (Bld) 1.3 % Normal 0.0-2.5 [facility] Comment on above: Performed By: #### A MM, GFR, TROPHS, ANEU, CBC, PBNP, CMP, MDW, ADIFF, MORPH ####[address] [address] Eosinophil, Absolute 0.1 10 3/mcL Normal 0.0-0.7 [facility] Comment on above: Performed By: #### A MM, GFR, TROPHS, ANEU, CBC, PBNP, CMP, MDW, ADIFF, MORPH ####[address] [address] Eosinophils/100 WBC (Bld) 0.9 % Normal 0.0-6.0 [facility] Comment on above: Performed By: #### A MM, GFR, TROPHS, ANEU, CBC, PBNP, CMP, MDW, ADIFF, MORPH ####[address] [address] Lymphocyte, Absolute 1.3 10 3/mcL Normal 0.9-4.3 [facility] Comment on above: Performed By: #### A MM, GFR, TROPHS, ANEU, CBC, PBNP, CMP, MDW, ADIFF, MORPH ####[address] [address] Lymphocytes/100 WBC (Bld) 18.4 % Low 20.0-40.0 [facility] Comment on above: Performed By: #### A MM, GFR, TROPHS, ANEU, CBC, PBNP, CMP, MDW, ADIFF, MORPH ####[address] [address] Monocyte, Absolute 0.6 10 3/mcL Normal 0.1-1.4 [facility] Comment on above: Performed By: #### A MM, GFR, TROPHS, ANEU, CBC, PBNP, CMP, MDW, ADIFF, MORPH ####[place] [id number] [place] [id number] Monocytes/100 WBC (Bld) 8.8 % Normal 2.0-13.0 [facility] Comment on above: Performed By: #### A MM, GFR, TROPHS, ANEU, CBC, PBNP, CMP, MDW, ADIFF, MORPH ####[address] [address] Neutrophils/100 WBC (Bld) 70.6 % Normal 50.0-75.0 [facility] Comment on above: Performed By: #### A MM, GFR, TROPHS, ANEU, CBC, PBNP, CMP, MDW, ADIFF, MORPH ####[address] [address] .GFRon 02-17-2024 GFR Non- >60 [facility] Comment on above: Result Comment: GFR Population mean for , Non- Americans Ages 20-29 = 116 mL/min/1.73 sq.m. Ages 30-39 = 107 mL/min/1.73 sq.m. Ages 40-49 = 99 mL/min/1.73 sq.m. Ages 50-59 = 93 mL/min/1.73 sq.m. Ages 60-69 = 85 mL/min/1.73 sq.m. Ages 70+ = 75 mL/min/1.73 sq.m. Chronic Kidney Disease: Less than 60 mL/min/1.73 square meters End Stage Renal Disease: Less than 15 mL/min/1.73 square meters Performed By: #### A MM, GFR, TROPHS, ANEU, CBC, PBNP, CMP, MDW, ADIFF, MORPH ####[address] [id number] GFR >60 [facility] Comment on above: Result Comment: GFR Population mean for , Non- Americans Ages 20-29 = 116 mL/min/1.73 sq.m. Ages 30-39 = 107 mL/min/1.73 sq.m. Ages 40-49 = 99 mL/min/1.73 sq.m. Ages 50-59 = 93 mL/min/1.73 sq.m. Ages 60-69 = 85 mL/min/1.73 sq.m. Ages 70+ = 75 mL/min/1.73 sq.m. Chronic Kidney Disease: Less than 60 mL/min/1.73 square meters End Stage Renal Disease: Less than 15 mL/min/1.73 square meters Performed By: #### A MM, GFR, TROPHS, ANEU, CBC, PBNP, CMP, MDW, ADIFF, MORPH ####[place] [address] .MDWon 02-17-2024 Monocyte Distribution Width 19.19 Normal 0.00-20.00 [facility] Comment on above: Result Comment: For ED adult patients suspected of sepsis, MDW<=20.0 does not rule out sepsis or risk of sepsis Performed By: #### A MM, GFR, TROPHS, ANEU, CBC, PBNP, CMP, MDW, ADIFF, MORPH ####[place] [address] .Morphon 02-17-2024 Platelet Estimate Normal Normal [facility] Comment on above: Performed By: #### A MM, GFR, TROPHS, ANEU, CBC, PBNP, CMP, MDW, ADIFF, MORPH ####[place] [address] Macrocytosis 2+ Normal [facility] Comment on above: Performed By: #### A MM, GFR, TROPHS, ANEU, CBC, PBNP, CMP, MDW, ADIFF, MORPH ####[place] [address] .NEUABSon 02-17-2024 Neutrophil, Absolute 4.9 10 3/mcL Normal 2.3-8.1 [facility] Comment on above: Performed By: #### A MM, GFR, TROPHS, ANEU, CBC, PBNP, CMP, MDW, ADIFF, MORPH ####[place] [address] Eleazar 02-17-2024 Ammonia (P) [Mass/Vol] ug/dL Low 11-32 [facility] Comment on above: Performed By: #### A MM, GFR, TROPHS, ANEU, CBC, PBNP, CMP, MDW, ADIFF, MORPH ####[place] [address] CBCon 02-17-2024 Erythrocyte distribution width (RBC) [Ratio] 14.1 % Normal 11.5-15.5 [facility] Comment on above: Performed By: #### A MM, GFR, TROPHS, ANEU, CBC, PBNP, CMP, MDW, ADIFF, MORPH ####[place] [address] Hematocrit (Bld) [Volume fraction] 37.2 % Low 40.0-52.0 [facility] Comment on above: Performed By: #### A MM, GFR, TROPHS, ANEU, CBC, PBNP, CMP, MDW, ADIFF, MORPH ####[place] [address] Hgb 12.7 G/dL Low 13.0-17.5 [facility] Comment on above: Performed By: #### A MM, GFR, TROPHS, ANEU, CBC, PBNP, CMP, MDW, ADIFF, MORPH ####[place] [address] MCH (RBC) [Entitic mass] 38.2 pg High 27.0-33.0 [facility] Comment on above: Performed By: #### A MM, GFR, TROPHS, ANEU, CBC, PBNP, CMP, MDW, ADIFF, MORPH ####[place] [address] MCHC 34.2 G/dL Normal 32.0-36.0 [facility] Comment on above: Performed By: #### A MM, GFR, TROPHS, ANEU, CBC, PBNP, CMP, MDW, ADIFF, MORPH ####[place] [address] MCV (RBC) [Entitic vol] 111.7 fL High 81.0-100.0 [facility] Comment on above: Performed By: #### A MM, GFR, TROPHS, ANEU, CBC, PBNP, CMP, MDW, ADIFF, MORPH ####[address] [address] Platelet 342 10 3/mcL Normal 150-450 [facility] Comment on above: Performed By: #### A MM, GFR, TROPHS, ANEU, CBC, PBNP, CMP, MDW, ADIFF, MORPH ####[place] [address] Platelet mean volume (Bld) [Entitic vol] 7.8 fL Normal 6.4-10.5 [facility] Comment on above: Performed By: #### A MM, GFR, TROPHS, ANEU, CBC, PBNP, CMP, MDW, ADIFF, MORPH ####[address] [address] RBC 3.33 10 6/mcL Low 4.50-6.00 [facility] Comment on above: Performed By: #### A MM, GFR, TROPHS, ANEU, CBC, PBNP, CMP, MDW, ADIFF, MORPH ####[place] [id number] WBC 6.9 10 3/mcL Normal 4.5-10.8 [facility] Comment on above: Performed By: #### A MM, GFR, TROPHS, ANEU, CBC, PBNP, CMP, MDW, ADIFF, MORPH ####[place] [address] CMPon 02-17-2024 BUN/Creatinine Ratio Unable to Calculate Normal 10.0-22.0 [facility] Comment on above: Result Comment: Unab le to calculate this test result accurately. Results used to calculate this test are outside the reportable range. Performed By: #### A MM, GFR, TROPHS, ANEU, CBC, PBNP, CMP, MDW, ADIFF, MORPH ####[address] [address] Urea nitrogen [Mass/Vol] mg/dL Low 8.0-22.0 [facility] Comment on above: Performed By: #### A MM, GFR, TROPHS, ANEU, CBC, PBNP, CMP, MDW, ADIFF, MORPH ####[place] [address] Albumin Level 2.2 G/dL Low 3.2-4.8 [facility] Comment on above: Performed By: #### A MM, GFR, TROPHS, ANEU, CBC, PBNP, CMP, MDW, ADIFF, MORPH ####[place] [address] Albumin/Globulin [Mass ratio] 0.5 {ratio} Low 0.9-1.6 [facility] Comment on above: Performed By: #### A MM, GFR, TROPHS, ANEU, CBC, PBNP, CMP, MDW, ADIFF, MORPH ####[address] [address] ALP [Catalytic activity/Vol] 131 U/L High 38-126 [facility] Comment on above: Performed By: #### A MM, GFR, TROPHS, ANEU, CBC, PBNP, CMP, MDW, ADIFF, MORPH ####[address] [address] ALT [Catalytic activity/Vol] 11 U/L Low 12-55 [facility] Comment on above: Performed By: #### A MM, GFR, TROPHS, ANEU, CBC, PBNP, CMP, MDW, ADIFF, MORPH ####[address] [address] AST [Catalytic activity/Vol] 28 U/L Normal 8-34 [facility] Comment on above: Performed By: #### A MM, GFR, TROPHS, ANEU, CBC, PBNP, CMP, MDW, ADIFF, MORPH ####[address] [address] Bili Total 0.70 mg/dL Normal 0.20-1.20 [facility] Comment on above: Result Comment: Use of this assay is not recommended for patients undergoing treatment with eltrombopag due to the potential for falsely elevated results. Performed By: #### A MM, GFR, TROPHS, ANEU, CBC, PBNP, CMP, MDW, ADIFF, MORPH ####[address] [address] Calcium [Mass/Vol] 8.8 mg/dL Normal 8.7-10.4 [facility] Comment on above: Performed By: #### A MM, GFR, TROPHS, ANEU, CBC, PBNP, CMP, MDW, ADIFF, MORPH ####[address] [address] Chloride [Moles/Vol] 104 mmol/L Normal 98-110 [facility] Comment on above: Performed By: #### A MM, GFR, TROPHS, ANEU, CBC, PBNP, CMP, MDW, ADIFF, MORPH ####[address] [address] CO2 [Moles/Vol] 28 mmol/L Normal 22-32 [facility] Comment on above: Performed By: #### A MM, GFR, TROPHS, ANEU, CBC, PBNP, CMP, MDW, ADIFF, MORPH ####[place] [address] Creatinine [Mass/Vol] 0.69 mg/dL Normal 0.60-1.40 [facility] Comment on above: Result Comment: Test ing performed on [employer] analyzer using enzymatic creatinine methodology. Performed By: #### A MM, GFR, TROPHS, ANEU, CBC, PBNP, CMP, MDW, ADIFF, MORPH ####[place] [address] Electrolyte Balance 4.0 mEq/L Normal 4.0-15.0 [facility] Comment on above: Performed By: #### A MM, GFR, TROPHS, ANEU, CBC, PBNP, CMP, MDW, ADIFF, MORPH ####[place] [phone] Globulin 4.1 G/dL High 1.5-3.8 [facility] Comment on above: Performed By: #### A MM, GFR, TROPHS, ANEU, CBC, PBNP, CMP, MDW, ADIFF, MORPH ####[address] [address] Glucose [Mass/Vol] 106 mg/dL Normal 70-110 [facility] Comment on above: Performed By: #### A MM, GFR, TROPHS, ANEU, CBC, PBNP, CMP, MDW, ADIFF, MORPH ####[address] [address] Potassium [Moles/Vol] 3.7 mmol/L Normal 3.5-5.0 [facility] Comment on above: Performed By: #### A MM, GFR, TROPHS, ANEU, CBC, PBNP, CMP, MDW, ADIFF, MORPH ####[place] [address] [place] [address] Sodium [Moles/Vol] 136 mmol/L Normal 136-145 [facility] Comment on above: Performed By: #### A MM, GFR, TROPHS, ANEU, CBC, PBNP, CMP, MDW, ADIFF, MORPH ####[place] [address] [place] [address] Total Protein 6.3 G/dL Normal 5.7-8.2 [facility] Comment on above: Result Comment: No te - New Reference Range in effect 19 Performed By: #### A MM, GFR, TROPHS, ANEU, CBC, PBNP, CMP, MDW, ADIFF, MORPH ####[address] [address] [address] ABD/PELVIS W/ IV CONTRAST ONLYon 02-17-2024 CT ABD/PELVIS W/ IV CONTRAST ONLY ORIGINAL EXAMINATION: CT OF THE ABDOMEN AND PELVIS WITH CONTRAST 02/17/2024 5:02 pm TECHNIQUE: CT of the abdomen and pelvis was performed with the administration of intravenous contrast. Multiplanar reformatted images are provided for review. Automated exposure control, iterative reconstruction, and/or weight based adjustment of the mA/kV was utilized to reduce the radiation dose to as low as reasonably achievable. COMPARISON: None. HISTORY: ORDERING SYSTEM PROVIDED HISTORY: Reason for Exam: bloating, pain, nausea. pt states recent paracentesis. ab pain FINDINGS: Lower Chest: No focal consolidation. Small paraesophageal hernia. Organs: Fibrotic/cirrhotic morphology to the liver. A few scattered subcentimeter hypodensities in the liver which are too small to characterize. Gallstones within a nondistended gallbladder. A few subcentimeter hypodensities in left kidney too small to characterize although could reflect small cysts. GI/Bowel: Wall thickening/edema of the colon. Moderate ascites. No pneumoperitoneum. Cannot reliably evaluate for focal inflammatory changes due to intra-abdominal edema. Pelvis: Unremarkable. Peritoneum/Retroperitoneum: Nonaneurysmal abdominal aorta with atherosclerotic plaque. A few mildly prominent nonspecific inguinal lymph nodes. Bones/Soft Tissues: Anasarca. Right femur fixation. Chronic wedge deformity of T12 vertebral body. Multilevel degenerative changes of the spine. IMPRESSION: Moderate ascites. 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 Anasarca. Generalized wall thickening/edema of the colon which could be accentuated by its relatively decompressed state, submucosal fat deposition or ascites/portal hypertension, unless there is a clinical concern for underlying infectious or inflammatory colitis. Interpreted by: Marc Lanier Preliminary Report By: Marc Lanier Electronically signed By Marc Lanier Dictated Date: 02/17/2024 5:05:37 PM Prelim Date: 02/17/2024 5:12:01 PM Sign Date: 02/17/2024 5:12:01 PM Ordering Provider: JOLYNN SPARKS [facility] LABORATORYOrdered By: Kailyn Hickey on 02-17-2024 Appearance (U) Clear (02/17/24 3:59 PM) Normal Clear AH Auto Urine SS Bilirubin Ql (U) Negative (02/17/24 3:59 PM) Normal Neg-Trace AH Auto Urine SS Color (U) Dark Yellow (02/17/24 3:59 PM) Normal AH Auto Urine SS Glucose Test strip (U) [Mass/Vol] Negative Normal Negative AH Auto Urine SS Hemoglobin Auto test strip (U) [Mass/Vol] Negative (02/17/24 3:59 PM) Normal Neg-Trace AH Auto Urine SS Ketones Ql (U) Negative Normal Neg-Trace AH Auto Urine SS UA Leuk Est Negative (02/17/24 3:59 PM) Normal Negative AH Auto Urine SS UA Nitrite Negative (02/17/24 3:59 PM) Normal Negative AH Auto Urine SS UA pH 5.5 (02/17/24 3:59 PM) Normal 5.0 - 8.0 AH Auto Urine SS UA Protein Trace mg/dL Normal Negative Auto Urine SS UA Spec Grav 1.020 (02/17/24 3:59 PM) Normal 1.006-1.029 Auto Urine SS UA Specimen Type Clean Catch (02/17/24 3:59 PM) Normal Auto Urine SS UA Urobilinogen 1.0 E.U./dL Normal 0.2-1.0 Auto Urine SS LABORATORYOrdered By: SYSTEM SYSTEM on 02-17-2024 Albumin BCP dye [Mass/Vol] 2.2 G/dL Low 3.2 - 4.8 G/dL ADM SS Albumin/Globulin [Mass ratio] 0.5 {ratio} Low 0.9 - 1.6 ratio AH ADM SS ALP [Catalytic activity/Vol] 131 U/L High 38 - 126 U/L ADM SS ALT No additional P-5'-P [Catalytic activity/Vol] 11 U/L Low 12 - 55 U/L ADM SS Ammonia (P) [Mass/Vol] mcmol/L Low 11 - 32 mcmol/L ADM SS AST [Catalytic activity/Vol] 28 U/L Normal 8 - 34 U/L ADM SS Bilirubin [Mass/Vol] 0.70 mg/dL Normal 0.20 - 1.20 mg/dL ADM SS Comment on above: Interpretive Data: U se of this assay is not recommended for patients undergoing treatment with eltrombopag due to the potential for falsely elevated results. Globulin 4.1 G/dL High 1.5 - 3.8 G/dL ADM SS Macrocytes Ql (Bld) 2+ *NA* (02/17/24 3:51 PM) Invalid Interpretation Code Workflow SS Monocyte distribution width Auto (Bld) [Entitic vol] 19.19 1 Normal 0.00 - 20.00 Workflow SS Comment on above: Result Comment: For ED adult patients suspected of sepsis, MDW<=20.0 does not rule out sepsis or risk of sepsis Natriuretic peptide.B prohormone N-Terminal IA [Mass/Vol] 1359 pg/mL High 0 - 900 pg/mL ADM SS Platelets LM Ql (Bld) Normal *NA* (02/17/24 3:51 PM) Invalid Interpretation Code Workflow SS Protein [Mass/Vol] 6.3 G/dL Normal 5.7 - 8.2 G/dL ADM SS Comment on above: Interpretive Data: * *Note - New Reference Range in effect 19 Troponin I.cardiac DL <= 0.01 ng/mL [Mass/Vol] 3 ng/L Normal 0 - 54 ng/L ADM SS Comment on above: Interpretive Data: High Sensitive Troponin I Reference Ranges: Female: 0-34 ng/L Male: 0-54 ng/L Testing performed on [employer] IM analyzer using direct chemiluminescent technology. PBNPon 02-17-2024 Natriuretic peptide B (Bld) [Mass/Vol] 1359 pg/mL High 0-900 [facility] Comment on above: Performed By: #### A MM, GFR, TROPHS, ANEU, CBC, PBNP, CMP, MDW, POOJA, MORPH #### [place] [address] TROPHSon 02-17-2024 High Sensitivity Troponin I 3 ng/L Normal 0-54 [facility] Comment on above: Result Comment: High Sensitive Troponin I Reference Ranges: Female: 0-34 ng/L Male: 0-54 ng/L Testing performed on [employer] IM analyzer using direct chemiluminescent technology. Performed By: #### A MM, GFR, TROPHS, ANEU, CBC, PBNP, CMP, MDW, ADMARY, MORPH ####[place] [address] UAon 02-17-2024 Color (U) Dark Yellow Normal [facility] Comment on above: Performed By: #### U A #### [place] [address] Glucose (U) [Mass/Vol] Negative Normal Negative [facility] Comment on above: Performed By: #### U A #### [place] [id number] Ketones Ql (U) Negative Normal Neg-Trace [facility] Comment on above: Performed By: #### U A #### [place] [address] UA Appear Clear Normal Clear [facility] Comment on above: Performed By: #### U A #### [place] [address] UA Blood Negative Normal Neg-Trace [facility] Comment on above: Performed By: #### U A #### [place] [id number] UA Leuk Est Negative Normal Negative [facility] Comment on above: Performed By: #### U A #### [place] [id number] UA Nitrite Negative Normal Negative [facility] Comment on above: Performed By: #### U A #### [place] [address] UA pH 5.5 Normal 5.0 - 8.0 [facility] Comment on above: Performed By: #### U A #### [place] [address] UA Protein Trace Normal Negative [facility] Comment on above: Performed By: #### U A #### [place] [address] UA Spec Grav 1.020 Normal 1.006-1.029 [facility] Comment on above: Performed By: #### U A #### [place] [address] UA Specimen Type Clean Catch Normal [facility] Comment on above: Performed By: #### U A #### [place] [address] UA Urobilinogen 1.0 E.U./dL Normal 0.2-1.0 [facility] Comment on above: Performed By: #### U A #### [place] [address] Urobilinogen (U) [Mass/Vol] Negative Normal Neg-Trace [facility] Comment on above: Performed By: #### U A #### [place] [address] XR CHEST 1 VIEWon 02-17-2024 XR CHEST 1 VIEW ORIGINAL EXAMINATION: ONE XRAY VIEW OF THE CHEST02/17/2024 4:13 pm COMPARISON: None. HISTORY: ORDERING SYSTEM PROVIDED HISTORY: Reason for Exam: sob FINDINGS: The cardiomediastinal silhouette is unremarkable. There is no pulmonary vascular congestion. There is no focal consolidation. No significant volume pleural effusion. No pneumothorax. No acute osseous abnormality by radiograph; osseous detail is limited. Surgical fixation plate at the left clavicle. IMPRESSION: No definite acute cardiopulmonary process by radiograph. I have personally reviewed the images of this examination and agree with the resident's findings and interpretation. Interpreted by: Damon Madison Preliminary Report By: Adolph Millan Electronically signed By Damon Madison Dictated Date: 02/17/2024 4:19:25 PM Prelim Date: 02/17/2024 4:22:51 PM Sign Date: 02/17/2024 4:50:32 PM Ordering Provider: JOLYNN SPARKS [facility] Culture, Anaerobic Any Sourc red 02-07-2024 CUAN No growth in 5 days. Normal [facility] Comment on above: Performed By: #### L 3890.6300, L3890.6100, L3890.6200 #### [facility] [address] [place], [address] Body Fluid Culton 02-05-2024 BFC No growth aerobically. Normal [facility] Comment on above: Performed By: #### L 3890.6300, L3890.6100, L3890.6200 #### [facility] [address] [place], [address] Amylase Body Fluidon 024 AMYLASE,BDY FLD 9 U/L Normal . [facility] Comment on above: Order Comment: . Result Comment: ____ : BODY FLUID TYPE : AMYLASE : : : : : Lymph : 50 - 83 : : : : : Peritoneal : : : Fluid : 88 - 109 : : : : : Saliva : : : (Mixed Glands) : 81883 - 280120 : : : : Shiloh W, Kelsey V. Reference Intervals for Adults and Children 2008. Ninth Edition (V9.1) [employer], [facility]; [place]abella: November 2008. Performed at: [address] [id number] [employer] Molder: Scott Pope PhD, Phone: [phone] Performed By: #### L 503.5510, L501.2300, L501.5200, L3800.0050 #### [facility] [address] [place], [address] Body Fluid Cell Count+Diffon 02-03-2024 PATH COMM/BF Reviewed Normal [facility] Comment on above: Result Comment: Nega tive for malignant cells. PLEASE ALSO REFER TO CYTOLOGY REPORT [id number] Abraham Paulino M.D. 02/03/24 AMENDED REPORT 02/03/24 1024 PATH COMM/BF previously reported as: May follow Performed By: #### L 3890.6300, L3890.6100, L3890.6200 #### [facility] [address] [place], [address] Gram Stainon 02-03-2024 GS Centrifuged Specimen ? Culture performed on centrifuged specimen Gram Stain 1+ White Blood Cells 1+ Red Blood Cells No organisms seen Normal [facility] Comment on above: Performed By: #### L 3890.6300, L3890.6100, L3890.6200 #### [facility] [address] [place], [address] Basic Metabolic Profile (BMP )on 02-02-2024 BUN/CRE 8.8 RATIO Low 10-20 [facility] Comment on above: Performed By: #### L 3890.6300, L3890.6100, L3890.6200 #### [facility] [address] [place], [address] CA,Total 8.2 mg/dL Low 8.5-10.1 [facility] Comment on above: Performed By: #### L 3890.6300, L3890.6100, L3890.6200 #### [facility] [address] [place], [address] Chloride [Moles/Vol] 98 mmol/L Normal 98-107 [facility] Comment on above: Performed By: #### L 3890.6300, L3890.6100, L3890.6200 #### [facility] [address] [place], [address] CO2 [Moles/Vol] 28.0 mmol/L Normal 21.0-32.0 [facility] Comment on above: Performed By: #### L 3890.6300, L3890.6100, L3890.6200 #### [facility] [address] [place], [address] Creatinine [Mass/Vol] 0.68 mg/dL Low 0.70-1.30 [facility] Comment on above: Result Comment: The validity of the calculated GFR GFRAA in patients over 70 years has not been determined. Clinical correlation is essential. Performed By: #### L 3890.6300, L3890.6100, L3890.6200 #### [facility] [address] [place], [address] ECRCL 122.26 ml/min Normal [facility] Comment on above: Performed By: #### L 3890.6300, L3890.6100, L3890.6200 #### [facility] [address] [place], [address] EST GFR - AA 153 mL/min Normal >60 [facility] Comment on above: Result Comment: Afri can Iraqi GFR Calc Performed By: #### L 3890.6300, L3890.6100, L3890.6200 #### [facility] [address] [place], [address] GAP 7 Normal 5-15 [facility] Comment on above: Performed By: #### L 3890.6300, L3890.6100, L3890.6200 #### [facility] [address] [place], [address] GFR/1.73 sq M.predicted among non-blacks MDRD (S/P/Bld) [Vol rate/Area] 126 mL/min/{1.73_m2} Normal >60 [facility] Comment on above: Result Comment: Non- GFR Calc Performed By: #### L 3890.6300, L3890.6100, L3890.6200 #### [facility] [address] [place], [address] Glucose [Mass/Vol] 80 mg/dL Normal 74-106 [facility] Comment on above: Performed By: #### L 3890.6300, L3890.6100, L3890.6200 #### [facility] [address] [place], [address] Potassium [Moles/Vol] 3.9 mmol/L Normal 3.5-5.1 [facility] Comment on above: Performed By: #### L 3890.6300, L3890.6100, L3890.6200 #### [facility] [address] [place], [address] Sodium [Moles/Vol] 133 mmol/L Low 136-145 [facility] Comment on above: Performed By: #### L 3890.6300, L3890.6100, L3890.6200 #### [facility] [address] [place], [address] Urea nitrogen [Mass/Vol] 6 mg/dL Low 7-18 [facility] Comment on above: Performed By: #### L 3890.6300, L3890.6100, L3890.6200 #### [facility] [address] [place], [address] Cytology, Body Fluid / CSFon 02-02-2024 CYTOLOGY,BF/CSF SEE PATHOLOGY REPORT Normal [facility] Comment on above: Result Comment: Spec imen submitted to Anatomical Pathology Department for testing. Performed By: #### L 3890.6300, L3890.6100, L3890.6200 #### [facility] [address] [place], [address] Discharge Instructionon 01-[address] [facility] Medical Records Department [address] [facility] [place] [address] Instructions for Home/Discharge Instructions 02/02/24 1447 MR#: [id number] Acct: [id number] Name: NARCISO GLEZ Rep #: [id number] : 1965 58 From: Ramakrishna Bower DO PCP: Care Physician,No Primary Status:ADM IN Discharge Instructions Diet Discharge Diet: No restrictions (Avoid salt in your food is much as possible) Activity Discharge Activity: Return to Normal Activity Weight Bearing Status: Full weight bearing Follow Up Care Test Results: Test results from this visit will be discussed in further detail at your follow-up appointment, if applicable. Discharge Plan Admission Admit Date/Time: 01/31/24 21:30 Primary Reason for Your Visit: Ascites, possible cirrhotic liver disease Attending Provider: Ramakrishna Bower Primary Care Provider: Care Physician,No Primary Consulting Providers: Earnestine Contreras Instructions Additional Instructions / Restrictions: Do not drink alcohol Discharge Orders/Prescriptions Prescriptions: New spironolactone 25 mg Tablet 25 mg PO DAILYCM Qty: 30 1RF Referrals / Follow Up: Slim Guadalupe MD [Med Staff - Barge Worker] - Soco Perdomo [Non-Staff] - See Referral Note (In 2 weeks, call for an appointment) Care Physician,No Primary [Primary Care Provider] - Disposition Disposition (needs filled in before D/C Order can be placed): Home, Self Care 02/02/24 4574 Ramakrishna Bower DO CC: Dr. Earnestine Contreras MD; No Primary Care Physician Signed Normal [facility] Echo Limited w/Contraston Echo Limited w/Contrast [facility] [address] [place] [address] Echo Limited w/Contrast 02/02/24 1540 MR#: [id number] Acct: [id number] Name: NARCISO GLEZ Rep #: [id number] : 1965 58 From: Tim Pandya MD Attending Dr: Dr. Ramakrishna Bower DO Status: A DM IN Ordering Dr: Ramakrishna Bower DO Date: 02/02/24 Location: MS3 Sex: M C Admitted: 01/31/24 Reason For Study: EDEMA, POSSIBLE CIRRHOSIS Procedure This was a limited 2D transthoracic echocardiogram. The study was technically difficult. Limited views were obtained. Contrast injection was performed. Exam performed portable in patient room. Left Ventricle Normal LV size. Left ventricular systolic function is normal. The left ventricular ejection fraction is 60 %. No regional wall motion abnormalities noted. Right Ventricle Normal RV size. Normal systolic function. Atria Normal left atrium. Normal right atrium. Mitral Valve Mitral valve not well visualized. Tricuspid Valve The tricuspid valve is not well visualized. Aortic Valve The aortic valve is not well visualized. Pulmonic Valve The pulmonic valve is not well visualized. Great Vessels Normal aortic root. The pulmonary artery is normal size. Normal inferior vena cava. Pericardium/Pleural No pericardial effusion. Medication Diluted definity 3ml given slow IV push to enhance endocardial definition. MMode/2D Measurements Calculations LVIDd: 4.0 cm IVSd: 0.80 cm LVOT diam: 2.2 cm LVIDs: 2.2 cm LVPWd: 0.85 cm RVDd: 3.1 cm FS: 44.2 % LVOT area: 3.7 cm2 LAV(MOD-sp4): 32.0 ml LVAd ap4: 26.3 cm2 LVAd ap2: 18.3 cm2 LVLd ap4: 7.2 cm LVLd ap2: 6.8 cm EDV(MOD-sp4): 78.8 ml EDV(MOD-sp2): 39.4 ml EDV(sp4-el): 81.0 ml EDV(sp2-el): 41.8 ml LVAs ap4: 14.5 cm2 LVAs ap2: 10.2 cm2 LVLs ap4: 6.0 cm LVLs ap2: 5.4 cm ESV(MOD-sp4): 28.9 ml ESV(MOD-sp2): 16.1 ml ESV(sp4-el): 29.7 ml ESV(sp2-el): 16.3 ml EF(MOD-sp4): 63.3 % EF(MOD-sp2): 59.2 % EF(sp4-el): 63.3 % SV(MOD-sp4): 49.9 ml SV(MOD-sp2): 23.3 ml SV(sp4-el): 51.3 ml Ao sinus diam: 3.6 cm LA A4 area: 14.6 cm2 LA dimension(2D): 3.1 cm RA A4 area: 15.2 cm2 TAPSE: 2.1 cm Time Measurements MV dec time: 0.21 sec Doppler Measurements Calculations MV E max yaneli: 44.5 cm/sec Lat Peak E' Yaneli: 13.1 cm/sec Med Peak E' Yaneli: 7.2 cm/sec MV A max yaneli: 48.3 cm/sec E/E' lat: 3.4 E/E' med: 6.2 MV E/A: 0.92 MV dec slope: 216.5 cm/sec2 Ao V2 max: 90.8 cm/sec LV V1 max: 75.0 cm/sec Ao max P.3 mmHg LV V1 max P.2 mmHg Ao V2 mean: 63.4 cm/sec LV V1 mean P.2 mmHg Ao mean P.7 mmHg LV V1 mean: 52.8 cm/sec Ao V2 VTI: 13.2 cm LV V1 VTI: 11.2 cm AV (velocity ratio): 0.85 MERARI(I,D): 3.1 cm2 MERARI(V,D): 3.1 cm2 SV(LVOT): 41.5 ml ECHO/Echo Limited w/Contrast Interpretation Summary Normal LV size. Left ventricular systolic function is normal. The left ventricular ejection fraction is 60 %. Contrast injection was performed. Ordering Physician: Ramakrishna Bower Performed By: Kaylie Villa, STEPHANIE 02/02/24 1633 Date Tim Pandya MD CC: Dr. Ramakrishna Bower, DO; No Primary Care Physician Date Dictated: 02/02/240 Date Transcribed: 02/02/241632 Fire Protection Designer: Signed Normal [facility] Glucose, Body Fluidon 2023 GLU,BF 124 mg/dL High 40-70 [facility] Comment on above: Performed By: #### L 3890.6300, L3890.6100, L3890.6200 #### [facility] [address] [place], [address] LDH,Body Fluidon 02-02-2024 LDH,BF 35 Units/L Normal Not Establ. [facility] Comment on above: Performed By: #### L 3890.6300, L3890.6100, L3890.6200 #### [facility] [address] [place], [address] Paracentesis with USon 02-01 Paracentesis with US [facility] Imaging Services [address] [place], [place] [address] Paracentesis with US MR#: [id number] Acct: [id number] Name: NARCISO GLEZ #: [id number] : 1965 M 58 From: Bean flores MD PCP: Care Physician,No Primary Status: ADM IN Study: Paracentesis with US Date of Exam: 02/02/24 Exam# [id number] Ordering Dr: Earnestine Contreras MD :[id number] PROCEDURE: Ultrasound guided paracentesis. DATE OF EXAMINATION: February 02, 2024.. INDICATION: Male, 58 years old. Ascites. PHYSICIAN: Bean Espinosa M.D. TECHNIQUE: The risks, benefits, and alternatives to the procedure were explained to the patient. The specific risks of bleeding, infection, and damage to bowel were detailed and accepted. Witnessed informed consent was obtained. The abdomen was ultrasonographically surveyed. An appropriate pocket of fluid was identified at the right lower quadrant. The skin were cleaned and prepped in the usual sterile fashion. Using ultrasound guidance, the peritoneal cavity was accessed with a 5-Bulgarian paracentesis needle/catheter system. The trocar was removed. A total of 4000 ml of alfredo-colored fluid were removed from the peritoneal cavity. A 100 mL sample was sent to the laboratory. The catheter was removed and a sterile dressing was applied. The procedure was well tolerated. US/Paracentesis with US IMPRESSION: Ultrasound guided paracentesis. Electronically Signed: Bean Espinosa MD at 13:18 EDT , CC: Dr. Earnestine Contreras MD; No Primary Care Physician Fire Protection Designer: Signed Normal [facility] Special Stain Group IIon Special Stain Group II -------- Patient Age/Sex Location Account Attending Physician -------- NARCISO GLEZ 58/M MS3 [id number] Dr. Ramakrishna Bower, -------- Specimen: [id number] Received: 02/02/24 Status: TIANA Kartik Num: [id number] Spec Type: Fluid Subm Dr: Dr. Ramakrishna Bower DO HEADER OPERATION: Paracentesis fluid PRE-OP DIAGNOSIS: Ascites TISSUE SUBMITTED: Paracentesis fluid for cytology -------- DIAGNOSIS CYTOLOGY Paracentesis fluid for cytology (cytospins and cellblock): Negative for malignant cells. AM/mr 02/04/2024 CYTOLOGY STUDY Slides are reviewed. CYTOLOGY GROSS Received is 70 ml of cloudy-yellow fluid labeled with the patient's name and and designated per the requisition as Paracentesis fluid. Submitted for cytology preparation including cell block. Mr 02/03/2024 TC:5 CPT: 06195,61437 Signed (signature on file) Dr. Oriana Farris, DO 02/05/24 0957 -------- Normal [facility] Comment on above: Performed By: #### L 3890.6300, L3890.6100, L3890.6200 #### [facility] [address] [place], [address] Specific [place], Body Fluid on 02-02-2024 SP.GR./BF 1.010 Normal [facility] Comment on above: Performed By: #### L 3890.6300, L3890.6100, L3890.6200 #### [facility] [address] [place], [address] Basic Metabolic Profile (BMP )on 02-01-2024 BUN Normal 7-18 [facility] Comment on above: Result Comment: DUPL ICATE, CMP WAS ALSO ORDERED BY FOR 01/31 555. OKAY TO CANCEL THIS PER CELESTE Performed By: #### L 3890.6300, L3890.6100, L3890.6200 #### [facility] [address] [place], [address] BUN/CRE Normal 10-20 [facility] Comment on above: Result Comment: DUPL ICATE, CMP WAS ALSO ORDERED BY FOR 01/31 555. OKAY TO CANCEL THIS PER CELESTE Performed By: #### L 3890.6300, L3890.6100, L3890.6200 #### [facility] [address] [place], [address] CA,Total Normal 8.5-10.1 [facility] Comment on above: Result Comment: SKYLER SOMERSTE, CMP WAS ALSO ORDERED BY FOR 01/31 555. OKAY TO CANCEL THIS PER CELESTE Performed By: #### L 3890.6300, L3890.6100, L3890.6200 #### [facility] [address] [place], [address] CL Normal 98-107 [facility] Comment on above: Result Comment: SKYLER ICATE, CMP WAS ALSO ORDERED BY FOR 01/31 555. OKAY TO CANCEL THIS PER CELESTE Performed By: #### L 3890.6300, L3890.6100, L3890.6200 #### [facility] [address] [place], [address] CO2 Normal 21.0-32.0 [facility] Comment on above: Result Comment: SKYLER ICATE, CMP WAS ALSO ORDERED BY FOR 01/31 555. OKAY TO CANCEL THIS PER CELESTE Performed By: #### L 3890.6300, L3890.6100, L3890.6200 #### [facility] [address] [place], [address] CREAT,SERUM Normal 0.70-1.30 [facility] Comment on above: Result Comment: SKYLER ICATE, CMP WAS ALSO ORDERED BY FOR 01/31 555. OKAY TO CANCEL THIS PER CELESTE Performed By: #### L 3890.6300, L3890.6100, L3890.6200 #### [facility] [address] [place], [address] EST GFR Normal >60 [facility] Comment on above: Result Comment: DUPL ICATE, CMP WAS ALSO ORDERED BY FOR 01/31 555. OKAY TO CANCEL THIS PER CELESTE Performed By: #### L 3890.6300, L3890.6100, L3890.6200 #### [facility] [address] [place], [address] EST GFR - AA Normal >60 [facility] Comment on above: Result Comment: SKYLER SOMERSTE, CMP WAS ALSO ORDERED BY FOR 01/31 555. OKAY TO CANCEL THIS PER CELESTE Performed By: #### L 3890.6300, L3890.6100, L3890.6200 #### [facility] [address] [place], [address] GAP Normal 5-15 [facility] Comment on above: Result Comment: SKYLER SOMERSTE, CMP WAS ALSO ORDERED BY FOR 01/31 555. OKAY TO CANCEL THIS PER CELESTE Performed By: #### L 3890.6300, L3890.6100, L3890.6200 #### [facility] [address] [place], [address] GLU Normal 74-106 [facility] Comment on above: Result Comment: SKYLER SOMERSTE, CMP WAS ALSO ORDERED BY FOR 01/31 555. OKAY TO CANCEL THIS PER CELESTE Performed By: #### L 3890.6300, L3890.6100, L3890.6200 #### [facility] [address] [place], [address] Potassium Normal 3.5-5.1 [facility] Comment on above: Result Comment: SKYLER MOORE, CMP WAS ALSO ORDERED BY FOR 01/31 555. OKAY TO CANCEL THIS PER CELESTE Performed By: #### L 3890.6300, L3890.6100, L3890.6200 #### [facility] [address] [place], [address] Basic Metabolic Profile (BMP) Normal 136-145 [facility] Comment on above: Result Comment: DUPL ICATE, CMP WAS ALSO ORDERED BY FOR 01/31 05. OKAY TO CANCEL THIS PER CELESTE Performed By: #### L 3890.6300, L3890.6100, L3890.6200 #### [facility] [address] [place], [address] CBC W/Diff, Automatedon 09-0 -2023 Absolute Lymph 2.23 X10 3/uL Normal 0.83-4.51 [facility] Comment on above: Performed By: #### L 3890.6300, L3890.6100, L3890.6200 #### [facility] [address] [place], [address] Absolute Neut 5.4 X10 3/uL Normal 2.0-7.7 [facility] Comment on above: Performed By: #### L 3890.6300, L3890.6100, L3890.6200 #### [facility] [address] [place], [address] Basophils/100 WBC (Bld) 0.5 % Normal 0-1 [facility] Comment on above: Performed By: #### L 3890.6300, L3890.6100, L3890.6200 #### [facility] [address] [place], [address] Eosinophils/100 WBC (Bld) 1.4 % Normal 0-5 [facility] Comment on above: Performed By: #### L 3890.6300, L3890.6100, L3890.6200 #### [facility] [address] [place], [address] Erythrocyte distribution width (RBC) [Ratio] 13.3 % Normal 11.6-14.6 [facility] Comment on above: Performed By: #### L 3890.6300, L3890.6100, L3890.6200 #### [facility] [address] [place], [address] Hematocrit (Bld) [Volume fraction] 32.2 % Low 40-54 [facility] Comment on above: Performed By: #### L 3890.6300, L3890.6100, L3890.6200 #### [facility] [address] [place], [address] Hemoglobin (Bld) [Mass/Vol] 11.4 g/dL Low 13.0-16.5 [facility] Comment on above: Performed By: #### L 3890.6300, L3890.6100, L3890.6200 #### [facility] [address] [place], [address] IG% 0.200 Normal 0.0-0.9 [facility] Comment on above: Result Comment: IG% - Immature Granulocytes (promyelocytes, myelocytes and metamyelocytes) > 1% indicates that a LEFT SHIFT is Present. Performed By: #### L 3890.6300, L3890.6100, L3890.6200 #### [facility] [address] [place], [address] Lymphocytes/100 WBC (Bld) 26.4 % Normal 19-41 [facility] Comment on above: Performed By: #### L 3890.6300, L3890.6100, L3890.6200 #### [facility] [address] [place], [address] MCH (RBC) [Entitic mass] 38.3 pg High 27.0-32.0 [facility] Comment on above: Performed By: #### L 3890.6300, L3890.6100, L3890.6200 #### [facility] [address] [place], [address] MCHC (RBC) [Mass/Vol] 35.4 g/dL Normal 32-36 [facility] Comment on above: Performed By: #### L 3890.6300, L3890.6100, L3890.6200 #### [facility] [address] [place], [address] MCV (RBC) [Entitic vol] 108.1 fL High 80-94 [facility] Comment on above: Performed By: #### L 3890.6300, L3890.6100, L3890.6200 #### [facility] [address] [place], [address] Monocytes/100 WBC (Bld) 7.9 % Normal 0-10 [facility] Comment on above: Performed By: #### L 3890.6300, L3890.6100, L3890.6200 #### [facility] [address] [place], [address] Neutrophils/100 WBC (Bld) 63.6 % Normal 47-70 [facility] Comment on above: Performed By: #### L 3890.6300, L3890.6100, L3890.6200 #### [facility] [address] [place], [address] Nucleated RBC (Bld) [#/Vol] 0 10*3/uL Normal 0-5 [facility] Comment on above: Performed By: #### L 3890.6300, L3890.6100, L3890.6200 #### [facility] [address] [place], [address] Platelet mean volume (Bld) [Entitic vol] 10.4 fL Normal 6.2-12.0 [facility] Comment on above: Performed By: #### L 3890.6300, L3890.6100, L3890.6200 #### [facility] [address] [place], [address] Platelets (Bld) [#/Vol] 210 10*3/uL Normal 150-450 [facility] Comment on above: Performed By: #### L 3890.6300, L3890.6100, L3890.6200 #### [facility] [address] [place], [address] RBC (Bld) [#/Vol] 2.98 10*6/uL Low 4.6-6.2 [facility] Comment on above: Performed By: #### L 3890.6300, L3890.6100, L3890.6200 #### [facility] [address] [place], [address] RDW SD 52.9 fl High 35.1-43.9 [facility] Comment on above: Performed By: #### L 3890.6300, L3890.6100, L3890.6200 #### [facility] [address] [place], [address] WBC (Bld) [#/Vol] 8.4 10*3/uL Normal 4.4-11.0 [facility] Comment on above: Performed By: #### L 3890.6300, L3890.6100, L3890.6200 #### [facility] [address] [place], [address] Comprehensive Metabolic Prof [facility] 02-01-2024 Albumin [Mass/Vol] 1.6 g/dL Low 3.2-5.0 [facility] Comment on above: Performed By: #### L 3890.6300, L3890.6100, L3890.6200 #### [facility] [address] [place], [address] Albumin/Globulin [Mass ratio] 0.5 {ratio} Low 0.9-2.4 [facility] Comment on above: Performed By: #### L 3890.6300, L3890.6100, L3890.6200 #### [facility] [address] [place], [address] ALK P 126 U/L High 45-117 [facility] Comment on above: Performed By: #### L 3890.6300, L3890.6100, L3890.6200 #### [facility] [address] [place], [address] ALT [Catalytic activity/Vol] 16 U/L Normal 16-61 [facility] Comment on above: Performed By: #### L 3890.6300, L3890.6100, L3890.6200 #### [facility] [address] [place], [address] AST [Catalytic activity/Vol] 25 U/L Normal 15-37 [facility] Comment on above: Performed By: #### L 3890.6300, L3890.6100, L3890.6200 #### [facility] [address] [place], [address] Bilirubin [Mass/Vol] 1.40 mg/dL High 0.20-1.00 [facility] Comment on above: Result Comment: For patients on eltrombopag therapy, use of Dimension Hiko TBIL is not recommended. Performed By: #### L 3890.6300, L3890.6100, L3890.6200 #### [facility] [address] [place], [address] BUN/CRE 8.9 RATIO Low 10-20 [facility] Comment on above: Performed By: #### L 3890.6300, L3890.6100, L3890.6200 #### [facility] [address] [place], [address] CA,Total 8.3 mg/dL Low 8.5-10.1 [facility] Comment on above: Performed By: #### L 3890.6300, L3890.6100, L3890.6200 #### [facility] [address] [place], [address] Chloride [Moles/Vol] 94 mmol/L Low 98-107 [facility] Comment on above: Performed By: #### L 3890.6300, L3890.6100, L3890.6200 #### [facility] [address] [place], [address] CO2 [Moles/Vol] 34.0 mmol/L High 21.0-32.0 [facility] Comment on above: Performed By: #### L 3890.6300, L3890.6100, L3890.6200 #### [facility] [address] [place], [address] Creatinine [Mass/Vol] 0.56 mg/dL Low 0.70-1.30 [facility] Comment on above: Result Comment: The validity of the calculated GFR GFRAA in patients over 70 years has not been determined. Clinical correlation is essential. Performed By: #### L 3890.6300, L3890.6100, L3890.6200 #### [facility] [address] [place], [address] ECRCL 148.46 ml/min Normal [facility] Comment on above: Performed By: #### L 3890.6300, L3890.6100, L3890.6200 #### [facility] [address] [place], [address] EST GFR - AA 192 mL/min Normal >60 [facility] Comment on above: Result Comment: Afri can Iraqi GFR Calc Performed By: #### L 3890.6300, L3890.6100, L3890.6200 #### [facility] [address] [place], [address] GAP 4 Low 5-15 [facility] Comment on above: Performed By: #### L 3890.6300, L3890.6100, L3890.6200 #### [facility] [address] [place], [address] GFR/1.73 sq M.predicted among non-blacks MDRD (S/P/Bld) [Vol rate/Area] 159 mL/min/{1.73_m2} Normal >60 [facility] Comment on above: Result Comment: Non- GFR Calc Performed By: #### L 3890.6300, L3890.6100, L3890.6200 #### [facility] [address] [place], [address] Globulin (S) [Mass/Vol] 3.2 g/dL Normal 2.2-4.2 [facility] Comment on above: Performed By: #### L 3890.6300, L3890.6100, L3890.6200 #### [facility] [address] [place], [address] Glucose [Mass/Vol] 102 mg/dL Normal 74-106 [facility] Comment on above: Result Comment: Fast ing Glucose result from 100 to 125 mg/dL suggests IMPAIRED HOMEOSTASIS per A.D.A. criteria. Performed By: #### L 3890.6300, L3890.6100, L3890.6200 #### [facility] [address] [place], [address] Potassium [Moles/Vol] 3.4 mmol/L Low 3.5-5.1 [facility] Comment on above: Performed By: #### L 3890.6300, L3890.6100, L3890.6200 #### [facility] [address] [place], [address] Sodium [Moles/Vol] 132 mmol/L Low 136-145 [facility] Comment on above: Performed By: #### L 3890.6300, L3890.6100, L3890.6200 #### [facility] [address] [place], [address] T PROT 4.8 g/dL Low 6.4-8.2 [facility] Comment on above: Performed By: #### L 3890.6300, L3890.6100, L3890.6200 #### [facility] [address] [place], [address] Urea nitrogen [Mass/Vol] 5 mg/dL Low 7-18 [facility] Comment on above: Performed By: #### L 3890.6300, L3890.6100, L3890.6200 #### [facility] [address] [place], [address] Hepatitis B Surface Antibody on 02-01-2024 HEP B Surf Ab Non-Reactive Normal [facility] Comment on above: Order Comment: Reaso n for Exam: ascites Reason for Exam: Hepatitis Screen Result Comment: Non Reactive: Inconsistent with immunity less than <10 mIU/mL Reactive: Consistent with immunity greater than or equal to 10 mIU/mL Performed By: #### L 3890.6300, L3890.6100, L3890.6200 #### [facility] [address] [place], [address] Hepatitis B Surface Antigeno n 02-01-2024 HEP B Surf Ag Non-Reactive Normal Nonreactive [facility] Comment on above: Order Comment: Reaso n for Exam: ascites Reason for Exam: Hepatitis Screen Performed By: #### L 3890.6300, L3890.6100, L3890.6200 #### [facility] [address] [place], [address] Hepatitis C Antibodyon 01-31 Hepatitis C AB Non-Reactive Normal Nonreactive [facility] Comment on above: Order Comment: Reaso n for Exam: ascites Reason for Exam: Hepatitis Screen Result Comment: Non Reactive: < 0.8 Equivocal: >/= 0.8 to < 1.0 Reactive: >/= 1.0 The CDC requires that a reactive/equivocal HCV antibody result be sent out for confirmation. HCV Quant by PCR testing. Performed By: #### L 3890.6300, L3890.6100, L3890.6200 #### [facility] [address] [place], [address] 12 Lead EKGon 01-31-2024 12 Lead EKG [facility] [address] [place] [address] 12 Lead EKG 01/31/24 1808 MR#: [id number] Acct: [id number] Name: NARCISO GLEZ Rep #: [id number] : 1965 58 From: Tim Pandya MD Attending Dr: Dr. Ramakrishna Bower DO Status: A DM IN Ordering Dr: Omar Pressley MD Date: 01/31/24 [place] [facility] [place]: M C Admitted: 01/31/24 Test Reason : EDEMA Blood Pressure : / mmHG Vent. Rate : 102 BPM Atrial Rate : 102 BPM P-R Int : 112 ms QRS Dur : 072 ms QT Int : 436 ms P-R-T Axes : 071 015 115 degrees QTc Int : 568 ms Critical Test Result: Long QTc Sinus tachycardia with occasional Premature ventricular complexes Low voltage QRS ST T wave abnormality, consider lateral ischemia Abnormal ECG Confirmed by ITM PANDYA MD ([id number]), loan expeditor ROYA LANDEROS ([id number]) on 02/01/2024 2:49:48 PM Referred By: Confirmed By:TIM PANDYA MD 02/01/24 1449 Date Tim Pandya MD CC: Dr. Omar Pressley MD; Dr. Ramakrishna Bower DO; No Primary Care Physician Signed Normal [facility] Abdomen/Pelvis W IV Cont ONL Yon 09-08-2024 Abdomen/Pelvis W IV Cont ONLY [facility] Imaging Services [address] [place], [place] [address] Abdomen/Pelvis W IV Cont ONLY MR#: [id number] Acct: [id number] Name: NARCISO GLEZ Rep #: [id number] : 1965 M 58 From: Rubens Gracia PCP: Care Physician,No Primary Status: REG ER Study: Abdomen/Pelvis W IV Cont ONLY Date of Exam: Exam# [id number] Ordering Dr: Omar Pressley MD :[id number] STUDY: CT Abdomen And Pelvis W/ Contrast Injection 01/31/2024 8:50 PM REASON FOR EXAM: Male, 58 years old. ascites Individualized dose optimization techniques were used for this CT. COMPARISON: xr 05.16.04. TECHNIQUE: CT Abdomen And Pelvis W/ Contrast Injection IV 100mL [id number] FINDINGS: There are atherosclerotic calcifications of visualized coronary arteries. The visualized portions of the heart are within normal limits. Diffusely heterogeneously enhancing liver. It is difficult to exclude underlying nodules. There are multiple gallstones. Normal spleen. Normal pancreas. Normal bilateral adrenal glands. There are hypodensities in the right kidney. These are consistent for cysts. No follow up required. There are hypodensities in the left kidney. These are consistent for cysts. No follow up required. There is a small hiatal hernia. Normal small intestine. Wall thickening of the colon is likely related to the overlying ascites. There is non-visualization of the appendix. There are calcifications of the abdominal aorta. This is consistent for atherosclerotic disease. There is NO abdominal aortic aneurysm. Vascular workup can be obtained based on clinical correlation. Normal inferior vena cava. Subcentimeter mesenteric lymph nodes. Normal urinary bladder. Metal hardware in the right femur. Abdominal and pelvic ascites. Normal abdominal wall. There are diffuse degenerative changes of the visualized lumbar spine. Slight increase in the compression deformity of T12. CT/Abdomen/Pelvis W IV Cont ONLY IMPRESSION: (NOT LISTED IN ORDER OF SIGNIFICANCE) Diffusely heterogeneously enhancing liver. It is difficult to exclude underlying nodules. Moderate abdominal ascites. Cholelithiasis. Small hiatal hernia. Slight increase in the compression deformity of T12. Other findings as above. Electronically Signed: Rubens Traore MD at 20:54 EDT , CC: Dr. Omar Pressley MD; No Primary Care Physician Fire Protection Designer: Signed Normal [facility] Albumin, Serumon 01-31-2024 Albumin [Mass/Vol] 1.9 g/dL Low 3.2-5.0 [facility] Comment on above: Performed By: #### L 501.1800 #### [facility] [address] [place], [address] Ammoniaon 01-31-2024 Ammonia (P) [Moles/Vol] 11.0 umol/L Normal 11-32 [facility] Comment on above: Performed By: #### L 503.5510, L501.2300, L501.5200, L3800.0050 #### [facility] [address] [place], [address] BNP,B-Type NATRIURETIC PEPTI Pawan 01-31-2024 Natriuretic peptide B (Bld) [Mass/Vol] 108.6 pg/mL High 0-100 [facility] Comment on above: Performed By: #### L 3890.6300, L3890.6100, L3890.6200 #### [facility] [address] [place], [address] Basic Metabolic Profile (BMP )on 01-31-2024 BUN/CRE 6.3 RATIO Low 10-20 [facility] Comment on above: Order Comment: Reaso n for Exam: ascites Reason for Exam: Hepatitis Screen Performed By: #### L 3890.6300, L3890.6100, L3890.6200 #### [facility] [address] [place], [address] CA,Total 9.1 mg/dL Normal 8.5-10.1 [facility] Comment on above: Order Comment: Reaso n for Exam: ascites Reason for Exam: Hepatitis Screen Performed By: #### L 3890.6300, L3890.6100, L3890.6200 #### [facility] [address] [place], [address] Chloride [Moles/Vol] 93 mmol/L Low 98-107 [facility] Comment on above: Order Comment: Reaso n for Exam: ascites Reason for Exam: Hepatitis Screen Performed By: #### L 3890.6300, L3890.6100, L3890.6200 #### [facility] [address] [place], [address] CO2 [Moles/Vol] 33.0 mmol/L High 21.0-32.0 [facility] [facility] Comment on above: Order Comment: Reaso n for Exam: ascites Reason for Exam: Hepatitis Screen Performed By: #### L 3890.6300, L3890.6100, L3890.6200 #### [facility] [address] [place], [address] Creatinine [Mass/Vol] 0.79 mg/dL Normal 0.70-1.30 [facility] Comment on above: Order Comment: Reaso n for Exam: ascites Reason for Exam: Hepatitis Screen Result Comment: The validity of the calculated GFR GFRAA in patients over 70 years has not been determined. Clinical correlation is essential. Performed By: #### L 3890.6300, L3890.6100, L3890.6200 #### [facility] [address] [place], [address] ECRCL 105.24 ml/min Normal [facility] Comment on above: Order Comment: Reaso n for Exam: ascites Reason for Exam: Hepatitis Screen Performed By: #### L 3890.6300, L3890.6100, L3890.6200 #### [facility] [address] [place], [address] EST GFR - AA 130 mL/min Normal >60 [facility] Comment on above: Order Comment: Reaso n for Exam: ascites Reason for Exam: Hepatitis Screen Result Comment: Afri can Iraqi GFR Calc Performed By: #### L 3890.6300, L3890.6100, L3890.6200 #### [facility] [address] [place], [place], [id number] (677 GAP 7 Normal 5-15 [facility] Comment on above: Order Comment: Reaso n for Exam: ascites Reason for Exam: Hepatitis Screen Performed By: #### L 3890.6300, L3890.6100, L3890.6200 #### [facility] [address] [place], [address] GFR/1.73 sq M.predicted among non-blacks MDRD (S/P/Bld) [Vol rate/Area] 107 mL/min/{1.73_m2} Normal >60 [facility] Comment on above: Order Comment: Reaso n for Exam: ascites Reason for Exam: Hepatitis Screen Result Comment: Non- GFR Calc Performed By: #### L 3890.6300, L3890.6100, L3890.6200 #### [facility] [address] [place], [address] Glucose [Mass/Vol] 123 mg/dL High 74-106 [facility] Comment on above: Order Comment: Reaso n for Exam: ascites Reason for Exam: Hepatitis Screen Result Comment: Fast ing Glucose result from 100 to 125 mg/dL suggests IMPAIRED HOMEOSTASIS per A.D.A. criteria. Performed By: #### L 3890.6300, L3890.6100, L3890.6200 #### [facility] [address] [place], [address] Potassium [Moles/Vol] 2.9 mmol/L Low 3.5-5.1 [facility] Comment on above: Order Comment: Reaso n for Exam: ascites Reason for Exam: Hepatitis Screen Performed By: #### L 3890.6300, L3890.6100, L3890.6200 #### [facility] [address] [place], [address] Sodium [Moles/Vol] 133 mmol/L Low 136-145 [facility] Comment on above: Order Comment: Reaso n for Exam: ascites Reason for Exam: Hepatitis Screen Performed By: #### L 3890.6300, L3890.6100, L3890.6200 #### [facility] [address] [place], [address] Urea nitrogen [Mass/Vol] 5 mg/dL Low 7-18 [facility] Comment on above: Order Comment: Reaso n for Exam: ascites Reason for Exam: Hepatitis Screen Performed By: #### L 3890.6300, L3890.6100, L3890.6200 #### [facility] [address] [place], [address] CBC W/Diff, Automatedon 09-0 8-4 Absolute Lymph 2.77 X10 3/uL Normal 0.83-4.51 [facility] Comment on above: Performed By: #### L 100.0100, L300.4310, L300.3900, L503.6620 #### [facility] [address] [place], [address] Absolute Neut 6.9 X10 3/uL Normal 2.0-7.7 [facility] Comment on above: Performed By: #### L 100.0100, L300.4310, L300.3900, L503.6620 #### [facility] [address] [place], [address] Basophils/100 WBC (Bld) 0.4 % Normal 0-1 [facility] Comment on above: Performed By: #### L 100.0100, L300.4310, L300.3900, L503.6620 #### [facility] [address] [place], [address] Eosinophils/100 WBC (Bld) 0.7 % Normal 0-5 [facility] Comment on above: Performed By: #### L 100.0100, L300.4310, L300.3900, L503.6620 #### [facility] [address] [place], [address] Erythrocyte distribution width (RBC) [Ratio] 13.3 % Normal 11.6-14.6 [facility] Comment on above: Performed By: #### L 100.0100, L300.4310, L300.3900, L503.6620 #### [facility] [address] [place], [address] Hematocrit (Bld) [Volume fraction] 37.0 % Low 40-54 [facility] Comment on above: Performed By: #### L 100.0100, L300.4310, L300.3900, L503.6620 #### [facility] [address] [place], [address] Hemoglobin (Bld) [Mass/Vol] 13.1 g/dL Normal 13.0-16.5 [facility] Comment on above: Performed By: #### L 100.0100, L300.4310, L300.3900, L503.6620 #### [facility] [address] [place], [address] IG% 0.400 Normal 0.0-0.9 [facility] Comment on above: Result Comment: IG% - Immature Granulocytes (promyelocytes, myelocytes and metamyelocytes) > 1% indicates that a LEFT SHIFT is Present. Performed By: #### L 100.0100, L300.4310, L300.3900, L503.6620 #### [facility] [address] [place], [address] Lymphocytes/100 WBC (Bld) 26.0 % Normal 19-41 [facility] Comment on above: Performed By: #### L 100.0100, L300.4310, L300.3900, L503.6620 #### [facility] [address] [place], [address] MCH (RBC) [Entitic mass] 38.1 pg High 27.0-32.0 [facility] Comment on above: Performed By: #### L 100.0100, L300.4310, L300.3900, L503.6620 #### [facility] [address] [place], [address] MCHC (RBC) [Mass/Vol] 35.4 g/dL Normal 32-36 [facility] Comment on above: Performed By: #### L 100.0100, L300.4310, L300.3900, L503.6620 #### [facility] [address] [place], [address] MCV (RBC) [Entitic vol] 107.6 fL High 80-94 [facility] Comment on above: Performed By: #### L 100.0100, L300.4310, L300.3900, L503.6620 #### [facility] [address], [address] Monocytes/100 WBC (Bld) 8.3 % Normal 0-10 [facility] Comment on above: Performed By: #### L 100.0100, L300.4310, L300.3900, L503.6620 #### [facility] [address], [address] Neutrophils/100 WBC (Bld) 64.2 % Normal 47-70 [facility] Comment on above: Performed By: #### L 100.0100, L300.4310, L300.3900, L503.6620 #### [facility] [address] [place], [address] Nucleated RBC (Bld) [#/Vol] 0 10*3/uL Normal 0-5 [facility] Comment on above: Performed By: #### L 100.0100, L300.4310, L300.3900, L503.6620 #### [facility] [address] [place], [address] Platelet mean volume (Bld) [Entitic vol] 10.6 fL Normal 6.2-12.0 [facility] Comment on above: Performed By: #### L 100.0100, L300.4310, L300.3900, L503.6620 #### [facility] [address] [place], [address] Platelets (Bld) [#/Vol] 285 10*3/uL Normal 150-450 [facility] Comment on above: Performed By: #### L 100.0100, L300.4310, L300.3900, L503.6620 #### [facility] [address] [place], [address] RBC (Bld) [#/Vol] 3.44 10*6/uL Low 4.6-6.2 [facility] Comment on above: Performed By: #### L 100.0100, L300.4310, L300.3900, L503.6620 #### [facility] [address] [place], [address] RDW SD 52.8 fl High 35.1-43.9 [facility] Comment on above: Performed By: #### L 100.0100, L300.4310, L300.3900, L503.6620 #### [facility] [address] [place], [address] WBC (Bld) [#/Vol] 10.7 10*3/uL Normal 4.4-11.0 [facility] Comment on above: Performed By: #### L 100.0100, L300.4310, L300.3900, L503.6620 #### [facility] [address] [place], [address] Chest 1 View (Portable)on Chest 1 View (Portable) [facility] Imaging Services [address] [place], [place] [address] Chest 1 View (Portable) MR#: [id number] Acct: [id number] Name: NARCISO GLEZ Rep #: [id number] : 1965 M 58 From: Rubens Gracia PCP: Dr. Slim Guadalupe MD Status: PRE ER Study: Chest 1 View (Portable) Date of Exam: 01/31/24 Exam# [id number] Ordering Dr: Omar Pressley MD :[id number] STUDY: XR Chest 1 View 01/31/2024 6:02 PM REASON FOR EXAM: Male, 58 years old. CHEST PAIN COMPARISON: None TECHNIQUE: XR Chest 1 View FINDINGS: There is no demonstrated pleural abnormality. Normal heart size. Normal mediastinum. Normal jamar. Prominent appearing increased interstitial lung markings. Normal visualized pulmonary arteries. There is atherosclerotic calcification of the aortic arch with tortuosity. There are diffuse degenerative changes of the visualized thoracic spine. There is degenerative osteoarthritis of the bilateral shoulders. Metal sideplate transfixing the left clavicle. There are no acute findings of the upper abdomen. RAD/Chest 1 View (Portable) IMPRESSION: There are no acute findings. Electronically Signed: Rubens Traore MD at 18:21 EDT , CC: Dr. Slim Guadalupe MD; Dr. Omar Pressley MD Fire Protection Designer: Signed Normal [facility] Emergency Department Summary on 01-31-2024 Emergency Department Summary [facility] Medical Records Department [address] [place] [address] Emergency Department Summary 01/31/24 MR#: [id number] Acct: [id number] Name: NARCISO GLEZ Rep #: [id number] : 1965 58 From: Omar Pressley MD PCP: Care Physician,No Primary Status:ADM IN Location: [place] [address] HPI History of Present Illness Chief Complaint: Edema Informant: patient and family Onset/Context/Timing Onset: Month(s) Context: Gradual Onset Timing: Continuous Current Severity: Moderate Maximum Severity: Moderate Narrative Narrative: 58-year-old male with medical history of prior hip replacement and prior right leg blood clots. History of alcohol abuse drinks daily and smokes about half to 1/3 pack of cigarettes a day. Daughter has not seen him for a while. There is a family she 50 mL and therefore on . Does not believe has been evaluated by a physician for years. He is complaining of bilateral lower extremity swelling and abdominal swelling. He is also had some nausea and vomiting. He has no history of cardiac disease or cirrhosis or kidney disease but again he has not been seen by a physician probably for years. Prior similar symptoms: Yes Recent Illness/Hospitalization: No PFSH PFS Medical History (Updated 01/31/24 @ 20:[address] Omar Pressley MD) Alcoholic Home Medications ???Medication ???Instructions ???Recorded ???Last Taken ???Type NK 01/31/24 Unknown History Allergy/AdvReac Type Severity Reaction Status Date / Time latex Allergy Mild Rash Verified 01/31/24 17:48 Social History Smoking Status: Current every day smoker tobacco type: cigarettes ROS ROS ED ROS Narrative Swelling. Shortness of breath. Constitutional Constitutional ED: Denies chills or fever(s) Eyes Eyes: Denies blurry vision ENT ENT ED: Denies ear pain Cardiovascular Cardiovascular: Denies chest pain Respiratory/Chest Respiratory/Chest: Reports dyspnea; Denies cough Gastrointestinal Gastrointestinal: Reports nausea and vomiting; Denies abdominal pain, constipation, diarrhea or melena Genitourinary Genitourinary ED: Denies dysuria or hematuria Musculoskeletal Musculoskeletal: Denies arthralgias, back pain, myalgias or neck pain Integumentary Denies abscess or Abrasions Neurologic Neurologic: Denies headache(s) Psychiatric Psychiatric: Denies anxiety or depression Endocrine Endocrinology: Denies cold intolerance Hematologic/Lymphatic Hematologic/Lymphatic: Reports none Allergic/Immunologic Allergic/Immunologic ED: Denies mouth swelling, tongue swelling or urticaria EXAM Physical Exam Narrative Exam Narrative: 58-year-old male sitting upright in bed. No acute distress. Daughter at bedside. H EENT exam unremarkable. Neck nontender. Lungs coarse breath sounds. Few scattered wheezes. Chronic smoker. Heart tachycardic rate of 105 no murmur. Chest wall and ribs nontender. Abdomen distended consistent with ascites. Moving all 4 extremities. 1-2+ pitting edema both lower extremities. Nontender. Dorsi plantarflexion intact. Normal cable respooler strength. He is awake and alert. Answering questions following commands. Const Vital Signs: 01/31/24 17:46 01/31/24 18:05 01/31/24 19:46 Temperature 97.6 F L Temperature Source Temporal Pulse Rate 105 H 97 Respiratory Rate 16 16 Blood Pressure 111/85 H 123/85 H Blood Pressure Mean 93 97 Pulse Ox 96 96 Oxygen Delivery Method Room Air Room Air Positive well nourished and well developed; Negative for cachectic, contractures or unkempt General Appearance ED: well developed and NAD; Negative for unkempt, cachectic, contractures, cyanotic, diaphoretic or pallor Nutritional Appearance: Negative for cachectic HEENT Reports moist mucous membranes; Denies dry mucous membranes Negative for trauma or tenderness Mouth ED: No dry mucous membranes Mouth: No dry mucous membranes Eyes PERRL and EOMs intact bilaterally General Eye ED: Negative for pale conjunctiva or scleral icterus Neck no lymphadenopathy, supple and no JVD General: Negative for tenderness Lymph Lymphatic: Negative for other Chest Wall inspection of chest normal and palpation of chest normal Resp normal respiratory effort and No clear to auscultation bilaterally Auscultation: wheezes Cardio regular rhythm, S1 normal heart sound, S2 normal heart sound and no murmurs; Negative for regular rate Rate: tachycardic GI normal to inspection, nondistended, normoactive bowel sounds, non-tender, non-distended and no masses GI Narrative: Ascites. No peritoneal signs. Inspection: Negative for abdominal distention Auscultation: normoactive bowel sounds Palpation: soft; Negative for tender, guarding or rebound tenderness present Back/Spin (more content not included)... Normal [facility] H AND P Exam - [facility] 01-31-2024 H&P Exam - Hospitalist [facility] Medical Records Department [address] [place] [address] H P Exam - Hospitalist 01/31/242033 MR#: [id number] Acct: [id number] Name: NARCISO GLEZ Rep #: [id number] : 1965 58 From: Earnestine Contreras MD PCP: Care Physician,No Primary Status:ADM IN [place] [facility] [place] HPI - General General Date of Admission: 01/31/24 Date of Service: 01/31/24 Chief Complaint: Worsening edema, abdominal distention/pain. HPI Narrative The patient is a 58 y/o M w/ PMHx: EtOH abuse with suspected potential underlying Alcoholic Cirrhosis, Tobacco use, Hx VTE who presents to the [facility] ED on 01/31/24 with history of ongoing daily alcohol abuse with a recent prompting family to evaluate him on with complaint of bilateral lower extremity swelling as well as abdominal distention/swelling with nausea and emesis with no physician evaluation reported per family for several years prompting them to bring him in for evaluation. Patient does admit to some mild generalized abdominal discomfort as well as to his legs which he attributes to the increased fluid. He admits to poor oral intake and not taking care of himself in general. He normally drinks up to half 1/5 of [place] daily but he has decreased this significantly over the last 2 weeks and has maybe been having 1-3 drinks a day more so recently wine as he has been staying with his daughter since the . He denies any alcohol withdrawal symptoms. Workup in the ED included T97.6, heart rate 105, BP 111/85, respiratory rate 16, 96% on room air, CBC with WC 10.7, human 13.1, MCV 107.6, platelet 285 without marked shift, coags with PT 15.4 otherwise not marked appearing, CMP with sodium 133, potassium 2.9, chloride 93, complex at 33, BUN/creatinine 5/0.79, glucose 123, T. bili 1.60, T. bili 0.64, AST/LT 37/20, alk phos 155, troponin 6, BNP 108.6, chest x-ray with no acute cardiopulmonary findings, EKG with sinus tachycardia with no acute evidence of ischemia, CT A/P w/ diffusely heterogeneous enhancing liver difficult to exclude nodules, moderate abdominal ascites, evidence cholelithiasis, small hiatal hernia, slight increase in compression deformity T8 12, EKG with sinus tachycardia with nonspecific ST-T wave changes with no acute evidence of ischemia. In the ED patient administered morphine 6 mg IV x 1, Zofran 4 mg IV x 1. PFSH Medical History History of venous thromboembolism Alcohol abuse Tobacco use Home Medications ???Medication ???Instructions ???Recorded ???Last Taken ???Type NK 01/31/24 Unknown History Allergy/AdvReac Type Severity Reaction Status Date / Time latex Allergy Mild Rash Verified 01/31/24 17:48 Family History (Updated 01/31/24 @ 22:[address] Earnestine Contreras MD) Mother COPD (chronic obstructive pulmonary disease) Father , in his 30s, accidental CO poisoning. No problems noted. Surgical History History of surgery on lower extremity History of hip surgery History of orthopedic surgery Social History (Updated 01/31/24 @ 22:[address] Earnestine Contreras MD) household members: none Smoking Status: Current every day smoker tobacco type: cigarettes Smoking packs per day: 0.25 Smoking cigarettes per day: 5.0 alcohol intake: current alcohol intake frequency: 3 or more drinks per day details: Prio 1/2 5th crown daily->down to 1-3 drinks daily, cutting back. substance use type: does not use ROS ROS Narrative Admission Review of Systems: CONSTITUTIONAL: No weight loss, fever, chills, + weakness or fatigue. HEENT: Eyes: No visual loss, blurred vision, double vision or yellow sclerae. Ears, Nose, Throat: No hearing loss, sneezing, congestion, runny nose or sore throat. SKIN: No rash or itching, lesions, wounds. CARDIOVASCULAR: No chest pain, chest pressure or chest discomfort, palpitations, edema, orthopnea, syncopal events. RESPIRATORY: No shortness of breath, cough or sputum, wheezing, hemoptysis. GASTROINTESTINAL: + Anorexia, nausea, vomiting, abdominal distention/discomfort. No diarrhea, melena, BRBPR. GENITOURINARY: No dysuria, frequency, urgency or retention. NEUROLOGICAL: No headache, dizziness, syncope, paralysis, ataxia, numbness or tingling in the extremities, focal weakness, change in bowel or bladder control, seizure. MUSCULOSKELETAL: + muscle, back pain, joint pain or stiffness. HEMATOLOGIC: No anemia. + Easy bleeding/bruising. LYMPHATICS: No enlarged nodes. No history of splenectomy. PSYCHIATRIC: No history of depression or anxiety. ENDOCRINOLOGIC: No reports of sweating, cold or heat intolerance. No polyuria or polydipsia. ALLERGIES: No history of asthma, hives, eczema or rhinitis. Vital Signs Vital Signs Vital Signs: 01/31/24 17:46 01/31/24 18:05 01/31/24 19:46 Temperature 97. (more content not included)... Normal [facility] L501.4020on 01-31-2024 TROPONIN-I HS 6 pg/mL Normal 3.0-78.0 [facility] Comment on above: Order Comment: Reaso n for Exam: ascites Reason for Exam: Hepatitis Screen Result Comment: Plea se Note: New Test Units and Gender Specific Reference Ranges. For more information see Policy Stat Procedure Hiko High Sensitivity Troponin (TNIH) and attachments. Performed By: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 endovascular clinic in 6 months with RLE DVT scan - smoking cessation - okay to discharge home Patient and plan discussed with Dr. Bah. Plan of Care Reviewed With: Plan of Care Reviewed With: patient Electronic Signatures: Jacki Cui (SPECIALIST EMPLOYEE LABOR RELATIONS-PRINTER REPAIR TECHNICIAN) (Signed 06-Nov-2020 13:56) Authored: Service, Subjective Data, Objective Data, Assessment and Plan, Note Completion Last Updated: 06-Nov-2020 13:56 by Jacki Cui (SPECIALIST EMPLOYEE LABOR RELATIONS-PRINTER REPAIR TECHNICIAN) Normal [facility] Discharge [id number] Discharge Profile2 Discharge Orders: Anticipated Discharge Date: Anticipated Discharge [id number] Problem List: Medical History: DVT (deep venous thrombosis): Catalog Name: Acute embolism and thrombosis of unspecified deep veins of unspecified lower extremity Hospital Providers: Provider RoleProvider Name Socrates Mays, Oriana Minor DNAR: DNAR Status: none Activity: activity as tolerated. Diet: Dietresume normal diet Heart Failure: Patient Instructions: - CALL 911 IF YOU HAVE ANY OF THE SIGNS AND SYMPTOMS OF HEART FAILURE: 1. Chest pain 2. Significant Shortness of breath 3. Fainting. - Notify your physician immediately if you have shortness of breath; weight gain of 3 lbs. or more; fatigue and loss of energy; swelling of lower extremities or abdomen; dizziness or fainting; change of appetite; and frequent coughing. - Patient received Living With Heart Failure book. - Daily weight on the same scale, same time after voiding and before eating. - Maintain daily weight log. Activity: - Balance activity with rest, gradually increase your activity as tolerated. - Exercise as prescribed by your physician. Vascular: General Wound Care: - Do NOT allow anyone but the Vascular Surgeon to remove janneth or sutures. Hospital Course (Home Care/Gold Form): Hospital Course: Hospital Course: include significant abnormal lab values 55 yo M with PMHx of COPD, HTN, tobacco dependence, EtOH abuse, and s/p ORIF R hip in [place] 05/18/20 presents with an extensive R LE DVT extending into the distal iliac system. He has been dealing with progressively worsening R LE pain and swelling since his hip surgery 6 months ago. Pain is now limiting ambulation and is unable to work. He cannot recall being discharged on DVT ppx after his surgery. He eventually had a LE US on 10/30 which showed an extensive R LE DVT. He had a tele visit with Dr. Alvaro Bah on 11/02 who recommended admission to extract thrombus. Thrrombectomy performed on 11/05/20. Patient now hemodynamically stable for discharge. Patient to be discharged on Xarelto 15 mg BID for 3 weeks then Xarelto 20 mg QD. Patient should f/u wit his PCP and f/u with Dr. Bah in 6 months with RLE DVT scan. All plans and goals of care were discussed and agreed upon with the patient. Provider FINAL REVIEW of Orders: Final Review: Final Review of Medication Reconciliation and Orders Completedby Physician Reviewing ProviderMaritza Choudhury MD (Resident) at 06-Nov-2020 11:24:19 Appointments: Follow-Up Appointment 01: Physician/Dept/ServiceDr. Mcneil Reason for ReferralHospital f/u Scheduled Date/[id number] 16:00 [address] , [address], [place]. [address] Phone [phone] CommentsOrder received after discharge Follow-Up Appointment 02: Physician/Dept/ServiceDr. Bah with ultrasound of right leg Scheduled Date/[id number] 01:00 [facility], [address] [facility] [address] Phone [phone] CommentsPlease [address] up with Dr. Bah and ultrasound completed 05/02/21 at 1:00PM as scheduled. Electronic Signatures: Jacki Cui (SPECIALIST EMPLOYEE LABOR RELATIONS-PRINTER REPAIR TECHNICIAN) (Signed 06-Nov-2020 11:39) Authored: Discharge Orders, Appointments Verenice Mckeon (PT SVS REP) (Signed 06-Nov-2020 16:30) Authored: Discharge Orders, Appointments Maritza Choudhury (Resident)) (Signed 06-Nov-2020 11:24) Authored: Discharge Orders, Heart Failure, Vascular, Hospital Course (Home Care/Gold Form), Provider FINAL REVIEW of Orders, Appointments, Gold Form - Aba Therapist Summary Last Updated: 06-Nov-2020 16:30 by Verenice Mckeon (PT SVS REP) Normal [facility] HEPARIN ASSAY,UFHon 11-07-19 21 HEPARIN ASSAY,UFH Canceled Normal [facility] Comment on above: Order Comment: TEST HEPARIN ASSAY,UFH WAS CANCELLED, 11/06/2020 09:03 Result Comment: The therapeutic reference range for UFH may be either 0.3-0.6 IU/mL or 0.3-0.7 IU/mL based on the clinical setting for anticoagulant therapy and the associated nomogram used. For heparin dosing guidelines based on clinical scenario and Heparin Assay results, please refer to local Pharmacy and the [facility] Guidelines for Anticoagulation therapy available on the [facility] intranet at: [email or web address] [email or web address] elines_[email or web address] Performed By: #### H AUF #### [address] [address] HEPARIN ASSAY,UFH 0.6 IU/mL Normal [facility] Comment on above: Result Comment: The therapeutic reference range for UFH may be either 0.3-0.6 IU/mL or 0.3-0.7 IU/mL based on the clinical setting for anticoagulant therapy and the associated nomogram used. For heparin dosing guidelines based on clinical scenario and Heparin Assay results, please refer to local Pharmacy and the [facility] Guidelines for Anticoagulation therapy available on the [facility] intranet at: [email or web address] [email or web address] [email or web address] Performed By: #### H AUF #### [address] [address] HEPARIN ASSAY,UFH 1.1 IU/mL Invalid Interpretation Code [facility] Comment on above: Order Comment: Farideh BELL, 11/05/2020 23:04 Result Comment: The therapeutic reference range for UFH may be either 0.3-0.6 IU/mL or 0.3-0.7 IU/mL based on the clinical setting for anticoagulant therapy and the associated nomogram used. For heparin dosing guidelines based on clinical scenario and Heparin Assay results, please refer to local Pharmacy and the [facility] Guidelines for Anticoagulation therapy available on the [facility] intranet at: [email or web address] [email or web address] elines_for_[email or web address] Michaelle- LASHONDA BELL, 11/05/2020 23:04 Performed By: #### B WELLINGTON #### [facility] [address] [place] [address] Heparin assay, UFHon 021 Heparin unfractionated Chromogenic method Qn (PPP) 0.6 {IU/mL} [facility] Work Phone: Comment on above: The therapeutic refe rence range for UFH may be either 0.3-0.6 IU/mL or 0.3-0.7 IU/mL based on the clinical setting for anticoagulant therapy and the associated nomogram used. For heparin dosing guidelines based on clinical scenario and Heparin Assay results, please refer to local Pharmacy and the [facility] Guidelines for Anticoagulation therapy available on the [facility] intranet at:[email or web address] Laboratory - Chemistry and C hemistry - challengeon 11-06-2020 Anion gap [Moles/Vol] 12 mmol/L 10 - 20 [facility] Work Phone: Calcium [Mass/Vol] 8.3 mg/dL below low threshold 8.6 - 10.3 [facility] Work Phone: Chloride [Moles/Vol] 101 mmol/L 98 - 107 [facility] Work Phone: CO2 [Moles/Vol] 25 mmol/L 21 - 32 [facility] Work Phone: Creatinine [Mass/Vol] 0.72 mg/dL See Below [facility] Work Phone: Comment on above: Reference Range: 0.5 0 - 1.30 Glucose [Mass/Vol] 232 mg/dL above high threshold 74 - 99 [facility] Work Phone: Potassium [Moles/Vol] 3.7 mmol/L 3.5 - 5.3 [facility] Work Phone: Sodium [Moles/Vol] 134 mmol/L below low threshold 136 - 145 [facility] Work Phone: Urea nitrogen [Mass/Vol] 9 mg/dL 6 - 23 [facility] Work Phone: Laboratory - Hematology and Cell countson 11-06-2020 Erythrocyte distribution width (RBC) [Ratio] 15.9 % above high threshold See Below [facility] Work Phone: Comment on above: Reference Range: 11. 5 - 14.5 Hematocrit (Bld) [Volume fraction] 46.0 % See Below [facility] Work Phone: Comment on above: Reference Range: 41. 0 - 52.0 Hemoglobin (Bld) [Mass/Vol] 16.2 g/dL See Below [facility] Work Phone: Comment on above: Reference Range: 13. 5 - 17.5 MCHC (RBC) [Mass/Vol] 35.2 g/dL See Below [facility] Work Phone: Comment on above: Reference Range: 32. 0 - 36.0 MCV (RBC) [Entitic vol] 113 fL above high threshold 80 - 100 [facility] Work Phone: [phone] Platelets (Bld) [#/Vol] 154 10*3/uL 150 - 450 [facility] Work Phone: [phone] RBC (Bld) [#/Vol] 4.07 {x10E12/L} below low threshold See Below [facility] Work Phone: [phone] Comment on above: Reference Range: 4.5 0 - 5.90 WBC (Bld) [#/Vol] 5.4 10*3/uL 4.4 - 11.3 [facility] Work Phone: [phone] MAGNESIUMon 11-06-2020 Magnesium [Mass/Vol] 1.63 mg/dL Normal 1.60 - 2.40 [facility] Comment on above: Performed By: #### B #### [facility] [address] [place] [address] Magnesium, Serumon Magnesium [Mass/Vol] 1.63 mg/dL See Below [facility] Work Phone: Comment on above: Reference Range: 1.6 0 - 2.40 No Panel Informationon 11-06 >60 >60 [facility] Work Phone: Comment on above: CALCULATIONS OF MARLENY MATED GFR ARE PERFORMED USING THE MDRD STUDY EQUATION FOR THE IDMS-TRACEABLE CREATININE METHODS. CLIN CHEM 2007;53:766-72 0.0 {/100_WBC} 0.0 - 0.0 [facility] Work Phone: Order Reconciliationon 11-06 Order Reconciliation Page 1 Discharge Reconciliation Document Reconciliation Type: Discharge requested on behalf of Maritza Choudhury (Resident) done by Maritza Choudhury (MD (Resident)) Discharge - Partial Reconciliation: 06-Nov-2020 11:12 by: Jacki Cui (SPECIALIST EMPLOYEE LABOR RELATIONS-[employer]) Discharge - Reconciliation: 06-Nov-2020 11:18 by: Maritza Choudhury ( (Resident)) Discharge - Reset to Incomplete: 06-Nov-2020 12:02 by: Maritza Choudhury ( (Resident)) Discharge - Reconciliation: 06-Nov-2020 13:03 by: Maritza Choudhury ( (Resident)) Home Medications EnteredHOME MEDICATIONS AT DISCHARGE DateReconciliation Comment/ Additional Information hydroCHLOROthiazide 12.5 mg oral tablet 1 tab(s) orally once a day 04-Nov-2020 21:57 hydroCHLOROthiazide 12.5 mg oral tablet 1 tab(s) orally once a day 04-Nov-2020 21:57 hydroCHLOROthiazide 12.5 mg oral tablet is continued as hydroCHLOROthiazide 12.5 mg oral tablet ondansetron 8 mg oral tablet 1 tab(s) orally every 8 hours, As Needed 04-Nov-2020 21:58 ondansetron 8 mg oral tablet 1 tab(s) orally every 8 hours, As Needed 04-Nov-2020 21:58 ondansetron 8 mg oral tablet is continued as ondansetron 8 mg oral tablet Xarelto 15 mg oral tablet 1 tab(s) orally 2 times a day 04-Nov-2020 21:57 Xarelto 15 mg oral tablet 1 tab(s) orally 2 times a day 06-Nov-2020 11:16 Discontinued; Copy/Discontinue Prescription is created for Xarelto 15 mg oral tablet Current OrdersDateHOME MEDICATIONS AT DISCHARGE DateReconciliation Comment/ Additional Information Acetaminophen Tablet (TYLENOL)DOSE = 650 mg Oral Every 4 Hours, PRN Pain - Mild (1-3) 04-Nov-2020 23:46 Acetaminophen is not required diazePAM (VALIUM) TabletDOSE = 10 mg Oral Every 2 Hours, PRN CIWA score greater than 6 or HR> 100 BPMStop After 72 Hours 05-Nov-2020 11:08 diazePAM (VALIUM) is not required Folic Acid TabletDOSE = 1 mg Oral Daily 05-Nov-2020 11:08 Folic Acid is not required HYDROcodone 5 mg - Acetaminophen 325 mg Tablet (NORCO)DOSE = 1 tablet(s) Oral Every 4 Hours, PRN Pain - Mod (4-6) 04-Nov-2020 23:46 HYDROcodone 5 mg - Acetaminophen 325 mg is not required Multivitamin with Minerals TabletDOSE = 1 tablet(s) Oral Daily 05-Nov-2020 11:08 Multivitamin with Minerals is not required Rivaroxaban Tablet (XARELTO)DOSE = 15 mg Oral 2 Times a Day With MealsClinician Notes: Initial therapy is for 21 days 06-Nov-2020 07:41 Rivaroxaban is not required Home Medications Added During Discharge Reconciliation Discharge Discharge Diagnosis< I82.409 DVT (deep venous thrombosis) Discharge Provider, Socrates Dietz Discharge Disposition : .Home Condition at Discharge: Fair Discharge Communication Instructions for Nursing Only: DISCHARGE TODAY AFTER SEEN BY DR. BAH'S [employer] SALES REPRESENTATIVE AND DISCHARGE PAPERWORK IS FINALIZED Discharge Communication Instructions for Nursing Only: Remove IV prior to discharge from hospital. Do not remove any midline, if present, without an order from the provider. Discharge Instructions - PHR After your discharge from the hospital, two Summary of Care Documents will be available online in your Personal Health Record (PHR). 1.Consolidated-Clinical Document Architecture (C-CDA) Patient Discharge Summary This document is a summary of your hospital stay to be kept for your reference.2.C-CDA Visit Summary This document is a summary of your hospital stay to be shared with your follow-up providers (doctor, electric motor repairer, physical therapist, etc.). Guidelines for a Healthy Lifestyle Physician Appointment - [facility]: 04-Add-8414Fypxah schedule appt with: Dr. Lake schedule appt with: Dr. Bah Xarelto 20 mg oral tablet 1 tab(s) orally once a day All Active Home Medications at time of Discharge Reconciliation: 06-Nov-2020 13:03 Discharge Discharge Diagnosis< I82.409 DVT (deep venous thrombosis) Discharge Provider, Socrates Dietz Discharge Disposition : .Home Condition at Discharge: Fair Discharge Communication Instructions for Nursing Only: DISCHARGE TODAY AFTER SEEN BY DR. BAH'S [employer] SALES REPRESENTATIVE AND DISCHARGE PAPERWORK IS FINALIZED Discharge Communication Instructions for Nursing Only: Remove IV prior to discharge from hospital. Do not remove any midline, if present, without an order from the provider. Discharge Instructions - PHR After your discharge from the hospital, two Summary of Care Documents will be available online in your Personal Health Record (PHR). 1.Consolidated-Clinical Document Architecture (C-CDA) Patient Discharge Summary This document is a summary of your hospital stay to be kept for your reference.2.C-CDA Visit Summary This document is a summary of your hospital stay to be shared with your follow-up providers (doctor, electric motor repairer, physical therapist, etc.). Guidelines for a Healthy Lifestyle hydroCHLOROthiazide 12.5 mg oral tablet 1 tab(s) orally once a day ondansetron 8 mg oral tablet 1 (more content not included)... Normal [facility] BASIC METABOLIC PANELon 06-1 Anion gap [Moles/Vol] 12 mmol/L Normal 10 - 20 [facility] Comment on above: Performed By: #### B MP #### [facility] [address] [place] [address] Calcium [Mass/Vol] 8.1 mg/dL Low 8.6 - 10.3 [facility] Comment on above: Performed By: #### B MP #### [facility] [address] [place] [address] Chloride [Moles/Vol] 100 mmol/L Normal 98 - 107 [facility] Comment on above: Performed By: #### B MP #### [address] [address] Creatinine [Mass/Vol] 0.74 mg/dL Normal 0.50 - 1.30 [facility] Comment on above: Performed By: #### B MP #### [address] [address] GFR- AM. >60 Normal >60 [facility] Comment on above: Result Comment: CALC ULATIONS OF ESTIMATED GFR ARE PERFORMED USING THE MDRD STUDY EQUATION FOR THE IDMS-TRACEABLE CREATININE METHODS. CLIN CHEM 2007;53:766-72 Performed By: #### B MP #### [address] [address] GFR-NON AM. >60 Normal >60 [facility] Comment on above: Performed By: #### B MP #### [address] [address] Glucose [Mass/Vol] 104 mg/dL High 74 - 99 [facility] Comment on above: Performed By: #### B MP #### [address] [address] HCO3 (Bld) [Moles/Vol] 29 mmol/L Normal 21 - 32 [facility] Comment on above: Performed By: #### B MP #### [address] [address] Potassium [Moles/Vol] 3.8 mmol/L Normal 3.5 - 5.3 [facility] Comment on above: Performed By: #### B MP #### [address] [address] Sodium [Moles/Vol] 137 mmol/L Normal 136 - 145 [facility] Comment on above: Performed By: #### B MP #### [address] [address] Urea nitrogen [Mass/Vol] 4 mg/dL Low 6 - 23 [facility] Comment on above: Performed By: #### B MP #### [address] [place] [address] CBCon 11-05-2020 Erythrocyte distribution width (RBC) [Ratio] 16.4 % High 11.5 - 14.5 [facility] Comment on above: Performed By: #### C BC #### [address] [place] [address] Hematocrit (Bld) [Volume fraction] 49.2 % Normal 41.0 - 52.0 [facility] Comment on above: Performed By: #### C BC #### [address] [place] [address] Hemoglobin (Bld) [Mass/Vol] 17.4 g/dL Normal 13.5 - 17.5 [facility] Comment on above: Performed By: #### C BC #### [address] [place] [address] MCHC (RBC) [Mass/Vol] 35.4 g/dL Normal 32.0 - 36.0 [facility] Comment on above: Performed By: #### C BC #### [address] [place] [address] MCV (RBC) [Entitic vol] 113 fL High 80 - 100 [facility] Comment on above: Performed By: #### C BC #### [address] [place] [address] NUCLEATED RBC 0.0 /100 WBC Normal 0.0 - 0.0 [facility] Comment on above: Performed By: #### C BC #### [address] [place] [address] Platelets (Bld) [#/Vol] 166 10*3/uL Normal 150 - 450 [facility] Comment on above: Performed By: #### C BC #### [address] [place] [address] RBC 4.36 x10E12/L Low 4.50 - 5.90 [facility] Comment on above: Performed By: #### C BC #### [address] [place] [address] WBC (Bld) [#/Vol] 4.4 10*3/uL Normal 4.4 - 11.3 [facility] Comment on above: Performed By: #### C BC #### [address] [place] [address] Erythrocyte distribution width (RBC) [Ratio] 16.2 % High 11.5 - 14.5 [facility] Comment on above: Performed By: #### C BC #### [address] [address] Hematocrit (Bld) [Volume fraction] 53.2 % High 41.0 - 52.0 [facility] Comment on above: Performed By: #### C BC #### [address] [place] [address] Hemoglobin (Bld) [Mass/Vol] 18.5 g/dL High 13.5 - 17.5 [facility] Comment on above: Performed By: #### C BC #### [address] [address] MCHC (RBC) [Mass/Vol] 34.8 g/dL Normal 32.0 - 36.0 [facility] Comment on above: Performed By: #### C BC #### [address] [place] [address] MCV (RBC) [Entitic vol] 113 fL High 80 - 100 [facility] Comment on above: Performed By: #### C BC #### [address] [place] [address] NUCLEATED RBC 0.0 /100 WBC Normal 0.0 - 0.0 [facility] Comment on above: Performed By: #### C BC #### [address] [address] Platelets (Bld) [#/Vol] 190 10*3/uL Normal 150 - 450 [facility] Comment on above: Performed By: #### C BC #### [address] [place] [address] RBC 4.70 x10E12/L Normal 4.50 - 5.90 [facility] Comment on above: Performed By: #### C BC #### [address] [place] [address] WBC (Bld) [#/Vol] 5.8 10*3/uL Normal 4.4 - 11.3 [facility] Comment on above: Performed By: #### C BC #### [facility] [address] [place] [address], [place] [address] COAGULATION SCREENon aPTT Coag (Bld) [Time] 40 s High 25 - 35 [facility] Comment on above: Result Comment: THE APTT IS NO LONGER USED FOR MONITORING UNFRACTIONATED HEPARIN THERAPY. FOR MONITORING HEPARIN THERAPY, USE THE HEPARIN ASSAY. Performed By: #### C OAGS #### [facility] [address] [place] [address], [place] [address] PT Coag (PPP) [Time] 15.0 s High 10.1 - 13.3 [facility] Comment on above: Performed By: #### C OAGS #### [address] [place] [address] PT, INR 1.3 High 0.9 - 1.1 [facility] Comment on above: Performed By: #### C OAGS #### [address] [place] [address] COMPREHENSIVE PANELon 2020 Albumin [Mass/Vol] 3.1 g/dL Low 3.4 - 5.0 [facility] Comment on above: Performed By: #### B MP #### [address] [place] [address] ALP [Catalytic activity/Vol] 156 U/L High 33 - 120 [facility] Comment on above: Performed By: #### B MP #### [address] [address] ALT [Catalytic activity/Vol] 44 U/L Normal 10 - 52 [facility] Comment on above: Result Comment: Melissa ents treated with Sulfasalazine may generate falsely decreased results for ALT. Performed By: #### B MP #### [address] [place] [address] Anion gap [Moles/Vol] 15 mmol/L Normal 10 - 20 [facility] Comment on above: Performed By: #### B MP #### [address] [place] [address] AST [Catalytic activity/Vol] 61 U/L High 9 - 39 [facility] Comment on above: Performed By: #### B MP #### [address] [address] Bilirubin [Mass/Vol] 1.4 mg/dL High 0.0 - 1.2 [facility] Comment on above: Performed By: #### B MP #### [address] [address] Calcium [Mass/Vol] 8.6 mg/dL Normal 8.6 - 10.3 [facility] Comment on above: Performed By: #### B MP #### [address] [address] Chloride [Moles/Vol] 95 mmol/L Low 98 - 107 [facility] Comment on above: Performed By: #### B MP #### [address] [address] Creatinine [Mass/Vol] 0.85 mg/dL Normal 0.50 - 1.30 [facility] Comment on above: Performed By: #### B MP #### [address] [address] GFR- AM. >60 Normal >60 [facility] Comment on above: Result Comment: CALC ULATIONS OF ESTIMATED GFR ARE PERFORMED USING THE MDRD STUDY EQUATION FOR THE IDMS-TRACEABLE CREATININE METHODS. CLIN CHEM 2007;53:766-72 Performed By: #### B MP #### [address] [address] GFR-NON AM. >60 Normal >60 [facility] Comment on above: Performed By: #### B MP #### [address] [address] Glucose [Mass/Vol] 105 mg/dL High 74 - 99 [facility] Comment on above: Performed By: #### B MP #### [address] [address] HCO3 (Bld) [Moles/Vol] 29 mmol/L Normal 21 - 32 [facility] Comment on above: Performed By: #### B MP #### [address] [address] Potassium [Moles/Vol] 3.8 mmol/L Normal 3.5 - 5.3 [facility] Comment on above: Performed By: #### B MP #### [address] [address] Protein [Mass/Vol] 5.5 g/dL Low 6.4 - 8.2 [facility] Comment on above: Performed By: #### B MP #### [address] [address] Sodium [Moles/Vol] 135 mmol/L Low 136 - 145 [facility] Comment on above: Performed By: #### B MP #### [address] [address] Urea nitrogen [Mass/Vol] 4 mg/dL Low 6 - 23 [facility] Comment on above: Performed By: #### B MP #### [address] [address] CORONAVIRUS 2019, SCREEN ASY MPTOMATICon 11-05-2020 SARS-CoV-2 (COVID-19) RNA EJ+probe Ql (Unsp spec) Not detected Normal Not Detected [facility] Comment on above: Result Comment: . This assay is designed to detect the RdRp gene of SARS-CoV-2 via nucleic acid amplification. A Not Detected result does not preclude COVID-19 infection since the adequacy of sample collection and/or low viral burden may result in presence of viral nucleic acids below the clinical sensitivity of this test method. Fact sheet for providers: www.fda.gov/media/248920/download Fact sheet for patients: www.fda.gov/media/418738/download This test has received FDA Emergency Use Authorization (EUA) and has been verified by [facility]. This test is only authorized for the duration of time that circumstances exist to justify the authorization of the emergency use of in vitro diagnostic tests for the detection of SARS-CoV-2 virus and/or diagnosis of COVID-19 infection under section 564(b)(1) of the Act, 21 U.S.C. 360bbb-3(b)(1), unless the authorization is terminated or revoked sooner. [facility] is certified under CLIA-88 as qualified to perform high complexity testing. Testing is performed in the [facility] laboratory located at [address] [place] [address]. [place] [id number]. Performed By: #### B MP #### [place] [address] Lab Specimen Source Nasal, Nasopharyngeal Normal [facility] Comment on above: Performed By: #### B MP #### [place] [id number] Consult-Interventional Cardi magdalena 11-05-2020 Consult-Interventio nal Cardiology Service: Service: Interventional Cardiology Consult: Consult requested by (Attending Name): Angel Dietz Reason: extensive LE DVT History of Present Illness: Admission Reason: DVT HPI: Delayed documentation - pt seen this AM. NARCISO GLEZ is a 55 year old Male with COPD, HTN, tobacco dependence, EtOH abuse, and s/p ORIF R hip in [place] 05/18/20 presents with an extensive R LE DVT extending into the distal iliac system. He has been dealing with progressively worsening R LE pain and swelling since his hip surgery 6 months ago. Pain is now limiting ambulation and is unable to work. He cannot recall being discharged on DVT ppx after his surgery. There has been worsening in the last few weeks - found to have extensive RLE thrombus. On virtual visit, the RLE is tense - admitted Thursday for planned thrombectomy. PMH: as above PSH: repair shoulder fx, ORIF R hip 05/18/20 FH: COPD, HTN, DLD SH: 1 ppd, 7-8 beers/d, no illicits Review Family/Social History and ROS: Constitutional: NEGATIVE: Fever Eyes: NEGATIVE: Vision Loss/ Change ENMT: NEGATIVE: Throat Pain Respiratory: NEGATIVE: Shortness of Breath Cardiac: NEGATIVE: Dyspnea on Exertion Gastrointestinal: NEGATIVE: Abdominal Pain Genitourinary: NEGATIVE: Hematuria Musculoskeletal: POSITIVE: Pain, Swelling Neurological: NEGATIVE: Syncope Psychiatric: NEGATIVE: Suicidal Ideas Skin: NEGATIVE: Ulcer All Other Systems: All other systems reviewed and are negative Allergies: NKDA: contrast (specific type unknown): Unknown Objective: Medications: Medications: Continuous Medications ---- 1. Heparin 25,000 units/ D5W 250 mL Infusion..: 1400 units/hr IntraVenous Scheduled Medications ---- 1. Folic Acid: 1 mg Oral Daily 2. Heparin (Repeat Bolus) Injectable: 6000 unit(s) IntraVenous Push Every 4 Hours 3. Multivitamin with Minerals: 1 tablet(s) Oral Daily PRN Medications ---- 1. Acetaminophen: 650 mg Oral Every 4 Hours 2. diazePAM (VALIUM): 10 mg Oral Every 2 Hours 3. HYDROcodone 5 mg - Acetaminophen 325 m tablet(s) Oral Every 4 Hours Recent Lab Results: Results: I have reviewed these laboratory results: PT + INR, Plasma 05-Nov-2020 07:02:00 ResultValue Prothrombin Time, Plasma 13.9 H International Normalized Ratio, Plasma 1.2 H Complete Blood Count 05-Nov-2020 05:48:00 ResultValue White Blood Cell Count 4.4 Nucleated Erythrocyte Count 0.0 Red Blood Cell Count 4.36 L HGB 17.4 HCT 49.2 MCV 113 H MCHC 35.4 PLT 166 RDW-CV 16.4 H Basic Metabolic Panel 05-Nov-2020 05:48:00 ResultValue Glucose, Serum 104 H NA 137 K 3.8 CL 100 Bicarbonate, Serum 29 Anion Gap, Serum 12 BUN 4 L CREAT 0.74 GFR-Non >60 GFR- >60 Calcium, Serum 8.1 L Radiology Results: Results: Conclusion: CONCLUSIONS: Right Lower Venous: There is acute occlusive deep vein thrombosis visualized in the profunda, proximal femoral,mid femoral, distal femoral, popliteal, posterior tibial and peroneal veins. There is acute non-occlusive deep vein thrombosis visualized in the iliac and common femoral veins. The thrombus appears to not be attached to the vessel stokes at the right external iliac and commo femoral veins. Evidence of partial superficial thrombosis of the right small saphenous vein. Additional Findings; Lymph nodes Left Lower Venous: Left common femoral vein is negative for deep vein thrombus. No evidence of deepvein thrombosis of the left external iliac vein. Imaging & Doppler Findings: Right Compress Thrombus SFJ Yes None SSV Prox Acute Right Compressible Thrombus Iliac Partial Acute non-occlusive CFV Partial Acute non-occlusive PFV No Acute occlusive FV Proximal No Acute occlusive FV Mid No Acute occlusive FV Distal No Acute occlusive Popliteal NoAcute occlusive Peroneal No Acute occlusive PTV No Acute occlusive Left Compress Thrombus Flow Iliac Yes None CFV Yes None Spontaneous/Phasic [id number] Ben Francis MD Final [facility] Venous Duplex Ultrasound for DVT [Oct 30 2020 9:45PM] Assessment: 55 yo man with HTN, COPD, tobacco/EtOH use; RLE DVT with extension into distal iliac vein. s/p Inari ClotTriever with removal of subacute thrombus - this is likely what accounted for sxs worsening in the last few weeks. 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 - resume anticoagulation with heparin gtt now - figure of 8 stitch to be removed in 4h, bedrest for 2 additional hours - ok to resume Xarelto 15 mg BID in AM - continue for 3 weeks before transition to 20 mg daily - follow up i (more content not included)... Normal [facility] Covid 19 Resultson 1 SARS-CoV-2 (COVID-19) RNA EJ+probe Ql (Unsp spec) NEGATIVE COVID-19 Test Coronaviruses are common world-wide and are the cause of many common colds. SARS-COV2 is a new coronavirus that began circulating worldwide in 2019 so we are calling it COVID-19. It has been estimated that four out of five patients with COVID-19 will recover at home without the need for medical attention. Symptoms of COVID-19 may include cough, fever, shortness of breath, loss of taste or smell and other flu-like symptoms including chills, sore muscles, sore throat, and headache. Severe illness is more common in older people and people with other health problems such as high blood pressure, obesity, and immune system problems. If the test is positive, you have COVID-19. You will be contacted by the ordering physicians office and instructed to remain on home isolation, in accordance with CDC guidelines. You may also be contacted by the [facility] to see if any of your close contacts may have been exposed to the virus and need to quarantine. If the test is negative, you likely do not have COVID-19 at this time, but you still may have a different illness that can spread to other people (like Influenza, or the Flu) and could still be at risk for getting COVID-19. We recommend that you stay away from other people to limit the spread of illness until your symptoms are improving and you are fever-free for 24 hours without the use of fever lowering medications such as acetaminophen or ibuprofen. No test is 100% accurate so if you are still concerned you may have COVID-19, talk to your doctor about the need to continue to stay away from others. Medicines Unless your provider told you not to use the following: Acetaminophen (Tylenol and others) is generally safe. Anti-inflammatory medications, such as Ibuprofen (Advil or Motrin) or Naproxen (Aleve) can also be used. Hoek-qtx-hlafrwm cough and cold medicines can be used according to the instructions on the package. Some pwog-aox-onuzaxq medicines also contain acetaminophen. Make sure you are not taking more than your recommended dose. For those not hospitalized, there is no specific treatment available for this illness. Antibiotics do not treat Coronaviruses. Follow-Up Follow up with your doctor by scheduling a virtual visit or consider follow-up at one of our urgent care fever clinics. If you are having difficulty breathing, or are very weak and having difficulty standing, this is a medical emergency. Call 911 or have someone take you to the nearest emergency room immediately. If possible, wear a facemask. Additional guidance from the CDC for patients who tested POSITIVE for COVID-19 How to isolate: Isolate yourself in a specific room at home and limit your contact with others. Use a separate bathroom from other members of the household, when possible. Leave home only to get essential medical care. Do not go to work, school or public areas. Avoid using public transportation, ride-sharing, or taxis. Restrict contact with pets and other animals. If you must care for your pet or be around animals while you are sick, wash your hands before and after your interaction and wear a facemask. Make sure that shared spaces in the home have good airflow, such as by an air conditioner or an opened window, weather permitting. Personal Hygiene Procedures: Wear a face mask when in the same room as other people or pets. If a face mask interferes with your breathing, others should wear a mask when sharing space with you. Frequent hand-washing: wash your hands with soap and water for at least 20 seconds. If soap and water are not available, use alcohol-based hand service coordinator elderly facility. Avoid touching your eyes, nose, and mouth with unwashed hands. Household Hygiene Procedures: Avoid sharing personal household items such as dishes, glassware, cups, eating utensils, towels or bedding with other people or pets in your home. After use, these items should be washed with soap and hot water. Disinfect all high-touch surfaces every day with antibacterial cleaning solutions such as Lysol wipes, bleach, cleansers, etc. High-touch surfaces include tabletops, doorknobs, bathroom fixtures, toilets, phones, keyboards, tablets and bedside tables. Immediately clean any surfaces that may have blood, poop or body fluids on them, using antibacterial cleaning solutions such as Lysol wipes, bleach, cleansers, etc. If clothing or bedding come into contact with blood, poop or body fluids, they should be washed immediately. Follow the directions on the laundry detergent and clothing labels but hot water is recommended when possible. Stopping home isolation precautions: If possible, consult your doctor before stopping home isolation precautions. According to the CDC, you can discontinue home isolation precautions when you have met both of these criteria: Your fever and respiratory symptoms have been gone for 24 brad (more content not included)... Normal [facility] Daily Progress Note-General Internal Medicineon 11-05-2020 Daily Progress Note-General Internal Medicine Service: General Internal Medicine Subjective Data: NARCISO GLEZ is a 55 year old Male who is Hospital Day # 2. Additional Information: Patient seen at bedside and there were no overnight events per nursing. Patient had no complaints. Patient denied fevers, chills, headaches, N/V, chest pain, SOB, cough, abdominal pain, numbness or tingling. All other ROS negative. Objective Data: Objective Information: T PRBPSpO2 [id number]% Date/Time11/05 12: 12: 12: 12: 12:00 Range(36.6C - 37.2C ) (79 - 97 ) (18 - 20 ) (99 - 124 )/ (67 - 96 ) (91% - 94% ) Highest temp of 37.2 C was recorded at 11/05 12:00 Pain reported at 11/04 21:30: 5 = Moderate Physical Exam by System: Constitutional: No acute distress, well appearing, pleasant Eyes: EOMI, clear sclera ENMT: oral mucosa pink Head/Neck: normocephalic, supple neck, trachea midline Respiratory/Thorax: CTA B/L, no wheezes, no rales Cardiovascular: RRR, normal s1, s2, no murmurs, no carotid bruits, radial and dorsalis pedis 2+ b/l, 1+ pitting edema at b/l feet Gastrointestinal: Normal bowel sounds all 4 quadrants, soft, nontender, no masses or hepatosplenomegaly Musculoskeletal: ROM intact, muscle strength 5+ throughout. RLE warm and erythematou s Neurological: No focal deficits Psychological: No depression, anxiety Skin: warm, dry, no lesions Medication: Medications: Continuous Medications ---- 1. Heparin 25,000 units/ D5W 250 mL Infusion..: 1400 units/hr IntraVenous Scheduled Medications ---- 1. Folic Acid: 1 mg Oral Daily 2. Heparin (Repeat Bolus) Injectable: 6000 unit(s) IntraVenous Push Every 4 Hours 3. Multivitamin with Minerals: 1 tablet(s) Oral Daily PRN Medications ---- 1. Acetaminophen: 650 mg Oral Every 4 Hours 2. diazePAM (VALIUM): 10 mg Oral Every 2 Hours 3. HYDROcodone 5 mg - Acetaminophen 325 m tablet(s) Oral Every 4 Hours Recent Lab Results: Results: I have reviewed these laboratory results: Heparin assay, UFH Trending View [id number] 12:39:00 05-Nov-2020 07:02:00 05-Nov-2020 05:48:00 05-Nov-2020 03:52:00 Heparin assay, UFH0.5 0.5 0.9 1.6 AA Lab Comment: Called- RB to MINDI. , 11/05/2020 04:38 PT + INR, Plasma 05-Nov-2020 07:02:00 ResultValue Prothrombin Time, Plasma 13.9 H International Normalized Ratio, Plasma 1.2 H Complete Blood Count 05-Nov-2020 05:48:00 ResultValue White Blood Cell Count 4.4 Nucleated Erythrocyte Count 0.0 Red Blood Cell Count 4.36 L HGB 17.4 HCT 49.2 MCV 113 H MCHC 35.4 PLT 166 RDW-CV 16.4 H Basic Metabolic Panel 05-Nov-2020 05:48:00 ResultValue Glucose, Serum 104 H NA 137 K 3.8 CL 100 Bicarbonate, Serum 29 Anion Gap, Serum 12 BUN 4 L CREAT 0.74 GFR-Non >60 GFR- >60 Calcium, Serum 8.1 L Magnesium, Serum 05-Nov-2020 05:48:00 ResultValue Magnesium, Serum 1.41 L Radiology Results: Results: Conclusion: CONCLUSIONS: Right Lower Venous: There is acute occlusive deep vein thrombosis visualized in the profunda, proximal femoral,mid femoral, distal femoral, popliteal, posterior tibial and peroneal veins. There is acute non-occlusive deep vein thrombosis visualized in the iliac and common femoral veins. The thrombus appears to not be attached to the vessel stokes at the right external iliac and commo femoral veins. Evidence of partial superficial thrombosis of the right small saphenous vein. Additional Findings; Lymph nodes Left Lower Venous: Left common femoral vein is negative for deep vein thrombus. No evidence of deepvein thrombosis of the left external iliac vein. Imaging & Doppler Findings: Right Compress Thrombus SFJ Yes None SSV Prox Acute Right Compressible Thrombus Iliac Partial Acute non-occlusive CFV Partial Acute non-occlusive PFV No Acute occlusive FV Proximal No Acute occlusive FV Mid No Acute occlusive FV Distal No Acute occlusive Popliteal NoAcute occlusive Peroneal No Acute occlusive PTV No Acute occlusive Left Compress Thrombus Flow Iliac Yes None CFV Yes None Spontaneous/Phasic [id number] Ben Francis MD Final [facility] Venous Duplex Ultrasound for DVT [Oct 30 2020 9:45PM] Assessment and Plan: Code Status: Code StatusFull Code Assessment: 55 yo M with PMHx of COPD, HTN, tobacco dependence, EtOH abuse, and s/p ORIF R hip in [place] 05/18/20 presents with an extensive R LE DVT extending into the distal iliac system. He has been dealing with progressively worsening R LE pain and swelling since his hip surgery 6 months ago. Pain is now limiting ambulation and is unable to work. He cannot recall being discharged on DVT ppx after h (more content not included)... Normal [facility] HEPARIN ASSAY,UFHon 11-06-19 21 HEPARIN ASSAY,UFH 1.4 IU/mL Invalid Interpretation Code [facility] Comment on above: Order Comment: PT ST ILL OFF FLOOR 1800 Called- RB towilbrug, 11/05/2020 19:44 Result Comment: The therapeutic reference range for UFH may be either 0.3-0.6 IU/mL or 0.3-0.7 IU/mL based on the clinical setting for anticoagulant therapy and the associated nomogram used. For heparin dosing guidelines based on clinical scenario and Heparin Assay results, please refer to local Pharmacy and the [facility] Guidelines for Anticoagulation therapy available on the [facility] intranet at: [email or web address] [email or web address] elines_[email or web address].aspx [facility]- [facility], 11/05/2020 19:44 Performed By: #### C BC #### [facility] [address] [place] [address] HEPARIN ASSAY,UFH 0.5 IU/mL Normal [facility] Comment on above: Result Comment: The therapeutic reference range for UFH may be either 0.3-0.6 IU/mL or 0.3-0.7 IU/mL based on the clinical setting for anticoagulant therapy and the associated nomogram used. For heparin dosing guidelines based on clinical scenario and Heparin Assay results, please refer to local Pharmacy and the [facility] Guidelines for Anticoagulation therapy available on the [facility] intranet at: [email or web address] [email or web address] elines_for_Anticoagu.aspx Performed By: #### B MP #### [facility] [address] [place] [address] HEPARIN ASSAY,UFH 0.5 IU/mL Normal [facility] Comment on above: Result Comment: The therapeutic reference range for UFH may be either 0.3-0.6 IU/mL or 0.3-0.7 IU/mL based on the clinical setting for anticoagulant therapy and the associated nomogram used. For heparin dosing guidelines based on clinical scenario and Heparin Assay results, please refer to local Pharmacy and the [facility] Guidelines for Anticoagulation therapy available on the [facility] intranet at: [email or web address] itals_Guid elines_for_Anticoagu.aspx Performed By: #### B MP #### [address] [address] HEPARIN ASSAY,UFH 0.9 IU/mL Normal [facility] Comment on above: Result Comment: The therapeutic reference range for UFH may be either 0.3-0.6 IU/mL or 0.3-0.7 IU/mL based on the clinical setting for anticoagulant therapy and the associated nomogram used. For heparin dosing guidelines based on clinical scenario and Heparin Assay results, please refer to local Pharmacy and the [facility] Guidelines for Anticoagulation therapy available on the [facility] intranet at: [email or web address] itals_Guid elines_for_Anticoagu.aspx Performed By: #### C BC #### [address] [address] HEPARIN ASSAY,UFH 1.6 IU/mL Invalid Interpretation Code [facility] Comment on above: Order Comment: Farideh OBREGON. , 11/05/2020 04:38 Result Comment: The therapeutic reference range for UFH may be either 0.3-0.6 IU/mL or 0.3-0.7 IU/mL based on the clinical setting for anticoagulant therapy and the associated nomogram used. For heparin dosing guidelines based on clinical scenario and Heparin Assay results, please refer to local Pharmacy and the [facility] Guidelines for Anticoagulation therapy available on the [facility] intranet at: [email or web address] ana marianes_for_Anticoagu.aspx Called- RB to MINDI. , 11/05/2020 04:38 Performed By: #### C BC #### [facility] [address] [place] [address] Heparin assay, UFHon 021 Heparin unfractionated Chromogenic method Qn (PPP) 1.1 {IU/mL} Critically abnormal [facility] Work Phone: Comment on above: The therapeutic refe rence range for UFH may be either 0.3-0.6 IU/mL or 0.3-0.7 IU/mL based on the clinical setting for anticoagulant therapy and the associated nomogram used. For heparin dosing guidelines based on clinical scenario and Heparin Assay results, please refer to local Pharmacy and the [facility] Guidelines for Anticoagulation therapy available on the [facility] intranet at:[email or web address]_Guidelines_for_Anticoagu.aspx Called- RB to RAY, 11/05/2020 23:04 Heparin unfractionated Chromogenic method Qn (PPP) 1.4 {IU/mL} Critically abnormal [facility] Work Phone: Comment on above: The therapeutic refe rence range for UFH may be either 0.3-0.6 IU/mL or 0.3-0.7 IU/mL based on the clinical setting for anticoagulant therapy and the associated nomogram used. For heparin dosing guidelines based on clinical scenario and Heparin Assay results, please refer to local Pharmacy and the [facility] Guidelines for Anticoagulation therapy available on the [facility] intranet at:[email or web address]_ ospitals_Guidelines_for_[email or web address].aspx Called- RB towilbrug1, 11/05/2020 19:44 Heparin unfractionated Chromogenic method Qn (PPP) 0.5 {IU/mL} [facility] Work Phone: Comment on above: The therapeutic refe rence range for UFH may be either 0.3-0.6 IU/mL or 0.3-0.7 IU/mL based on the clinical setting for anticoagulant therapy and the associated nomogram used. For heparin dosing guidelines based on clinical scenario and Heparin Assay results, please refer to local Pharmacy and the [facility] Guidelines for Anticoagulation therapy available on the [facility] intranet at:[email or web address]_ ospitals_Guidelines_for_Anticoagu.aspx Heparin unfractionated Chromogenic method Qn (PPP) 0.5 {IU/mL} [facility] Work Phone: Comment on above: The therapeutic refe rence range for UFH may be either 0.3-0.6 IU/mL or 0.3-0.7 IU/mL based on the clinical setting for anticoagulant therapy and the associated nomogram used. For heparin dosing guidelines based on clinical scenario and Heparin Assay results, please refer to local Pharmacy and the [facility] Guidelines for Anticoagulation therapy available on the [facility] intranet at:[email or web address]_ ospitals_Guidelines_for_Anticoagu.aspx Heparin unfractionated Chromogenic method Qn (PPP) 0.9 {IU/mL} [facility] Work Phone: Comment on above: The therapeutic refe rence range for UFH may be either 0.3-0.6 IU/mL or 0.3-0.7 IU/mL based on the clinical setting for anticoagulant therapy and the associated nomogram used. For heparin dosing guidelines based on clinical scenario and Heparin Assay results, please refer to local Pharmacy and the [facility] Guidelines for Anticoagulation therapy available on the [facility] intranet at:[email or web address]_ [email or web address]_for_Anticoagu.aspx Heparin unfractionated Chromogenic method Qn (PPP) 1.6 {IU/mL} Critically abnormal [facility] Work Phone: Comment on above: The therapeutic refe rence range for UFH may be either 0.3-0.6 IU/mL or 0.3-0.7 IU/mL based on the clinical setting for anticoagulant therapy and the associated nomogram used. For heparin dosing guidelines based on clinical scenario and Heparin Assay results, please refer to local Pharmacy and the [facility] Guidelines for Anticoagulation therapy available on the [facility] intranet at:[email or web address]_ ospitals_Guidelines_for_Anticoagu.aspx Called- RB to MINDI. , 11/05/2020 04:38 Laboratory - Chemistry and C hemistry - challengeon 11-05-2020 Anion gap [Moles/Vol] 12 mmol/L 10 - 20 [facility] Work Phone: Calcium [Mass/Vol] 8.1 mg/dL below low threshold 8.6 - 10.3 [facility] Work Phone: Chloride [Moles/Vol] 100 mmol/L 98 - 107 [facility] Work Phone: CO2 [Moles/Vol] 29 mmol/L 21 - 32 [facility] Work Phone: Creatinine [Mass/Vol] 0.74 mg/dL See Below [facility] Work Phone: Comment on above: Reference Range: 0.5 0 - 1.30 Glucose [Mass/Vol] 104 mg/dL above high threshold 74 - 99 [facility] Work Phone: Potassium [Moles/Vol] 3.8 mmol/L 3.5 - 5.3 [facility] Work Phone: Sodium [Moles/Vol] 137 mmol/L 136 - 145 [facility] Work Phone: Urea nitrogen [Mass/Vol] 4 mg/dL below low threshold 6 - 23 [facility] Work Phone: Laboratory - Coagulationon 0 11-05-2020 INR Coag (PPP) [Relative time] 1.2 {INR} above high threshold 0.9 - 1.1 [facility] Work Phone: PT Coag (PPP) [Time] 13.9 s above high threshold See Below [facility] Work Phone: Comment on above: Reference Range: 10. 1 - 13.3 Laboratory - Hematology and Cell countson 11-05-2020 Erythrocyte distribution width (RBC) [Ratio] 16.4 % above high threshold See Below [facility] Work Phone: Comment on above: Reference Range: 11. 5 - 14.5 Hematocrit (Bld) [Volume fraction] 49.2 % See Below [facility] Work Phone: Comment on above: Reference Range: 41. 0 - 52.0 Hemoglobin (Bld) [Mass/Vol] 17.4 g/dL See Below [facility] Work Phone: Comment on above: Reference Range: 13. 5 - 17.5 MCHC (RBC) [Mass/Vol] 35.4 g/dL See Below [facility] Work Phone: Comment on above: Reference Range: 32. 0 - 36.0 MCV (RBC) [Entitic vol] 113 fL above high threshold 80 - 100 [facility] Work Phone: Platelets (Bld) [#/Vol] 166 10*3/uL 150 - 450 [facility] Work Phone: [phone] RBC (Bld) [#/Vol] 4.36 {x10E12/L} below low threshold See Below [facility] Work Phone: [phone] Comment on above: Reference Range: 4.5 0 - 5.90 WBC (Bld) [#/Vol] 4.4 10*3/uL 4.4 - 11.3 [facility] Work Phone: MAGNESIUMon 11-05-2020 Magnesium [Mass/Vol] 1.41 mg/dL Low 1.60 - 2.40 [facility] Comment on above: Performed By: #### M G #### [facility] [address] [place] [address] Magnesium [Mass/Vol] 1.62 mg/dL Normal 1.60 - 2.40 [facility] Comment on above: Performed By: #### M G #### [facility] [address] [place] [address] Magnesium, Serumon Magnesium [Mass/Vol] 1.41 mg/dL below low threshold See Below -[facility] Work Phone: Comment on above: Reference Range: 1.6 0 - 2.40 No Panel Informationon 11-05 Please click on the link to view the study images Normal [facility] Work Phone: [facility] Work Phone: >60 >60 [facility] Work Phone: Comment on above: CALCULATIONS OF MARLENY MATED GFR ARE PERFORMED USING THE MDRD STUDY EQUATION FOR THE IDMS-TRACEABLE CREATININE METHODS. CLIN CHEM 2007;53:766-72 0.0 {/100_WBC} 0.0 - 0.0 [facility] Work Phone: Order Reconciliationon 11-05 Order Reconciliation Page 1 Admission Reconciliation Document Reconciliation Type: Admission from ED requested on behalf of Angel Dietz (Physician) done by Angel Dietz (DO) Admission from ED - Reconciliation: 04-Nov-2020 23:44 by: Angel Dietz (DO) Home MedicationsEnteredLast Dose TakenReconciled with current Order Reconciliation Comment/ Additional Information hydroCHLOROthiazide 12.5 mg oral tablet 1 tab(s) orally once a [id number] Reviewed and Held ondansetron 8 mg oral tablet 1 tab(s) orally every 8 hours, As Needed 04-Nov-2020 Reviewed and Held Xarelto 15 mg oral tablet 1 tab(s) orally 2 times a [id number] Reviewed and Held Additional Current Orders Heparin (Initial LOAD) Injectable. (High Intensity - VTE, CVT, Afib)DOSE = 6,000 unit(s) IntraVenous Push Once Heparin (Repeat Bolus) Injectable (High Intensity - VTE, CVT, Afib) IntraVenous Push Every 4 HoursRepeat Bolus Doses:If Heparin Assay is LESS than 0.1 Repeat Bolus of 6000 units.If Heparin Assay is between 0.1 and 0.2 Repeat Bolus of 3000 units.If Heparin Assay is between 0.3 and 0.7 (THERAPEUTIC) DO NOT BOLUS.If Heparin Assay is between 0.8 and 1.0 DO NOT BOLUS.If Heparin Assay is between 1.1 and 1.2 DO NOT BOLUS.If Heparin Assay is GREATER than 1.2, HOLD Infusion for 1 Hour & repeat heparin assay; if repeat 0.3 and 0.7, DO NOT BOLUS.If Heparin Assay is GREATER than 1.2, HOLD Infusion for 1 Hour repeat heparin assay; if repeat > 0.7, DO NOT BOLUS.Clinician Notes: Administer with Q 4 hour Heparin Assay result, beginning 4 hours after the drip initiation. Call physician with lab results. Heparin 25,000 units/ D5W 250 mL Infusion.. Solution (High Intensity - VTE, CVT, Afib)IntraVenous Admin Rate = 14 mL/hr DOSE Rate = 1,400 units/hrInfusion Rate Adjustments: If Heparin Assay is LESS than 0.1 INCREASE Infusion Rate by 300 units/ hr.If Heparin Assay is between 0.1 and 0.2 INCREASE Infusion Rate by 200 units/ hr. If Heparin Assay is between 0.3 and 0.7 (THERAPEUTIC) DO NOT CHANGE Infusion Rate.If Heparin Assay is between 0.8 and 1.0 REDUCE Infusion Rate by 200 units/ hr.If Heparin Assay is between 1.1 and 1.2 HOLD Infusion for 1 Hour then REDUCE Infusion Rate by 200 units/ hr.If Heparin Assay is GREATER than 1.2, HOLD Infusion for 1 Hour & repeat heparin assay; if repeat 0.3 and 0.7, REDUCE Infusion Rate by 300 units/ hr.If Heparin Assay is GREATER than 1.2, HOLD Infusion for 1 Hour & repeat heparin assay; if repeat > 0.7, continue to HOLD INFUSION. Contact physician for furthe Normal [facility] PT/INRon 11-05-2020 PT Coag (PPP) [Time] 13.9 s High 10.1 - 13.3 [facility] Comment on above: Performed By: #### P TINR #### [facility] [address] [address] PT, INR 1.2 High 0.9 - 1.1 [facility] Comment on above: Performed By: #### P TINR #### [address] [address] PROTHROMBIN TIME Canceled Normal [facility] Comment on above: Order Comment: TEST PT/INR WAS CANCELLED, 11/05/2020 09:16 DUPLICATE ORDER. Performed By: #### P TINR #### [address] [address] PT, INR Canceled Normal [facility] Comment on above: Order Comment: TEST PT/INR WAS CANCELLED, 11/05/2020 09:16 DUPLICATE ORDER. Performed By: #### P TINR #### [address] [address] Peripheral lower extremity a ngioplasty/stenton 11-05-2020 Peripheral lower extremity angioplasty/stent [facility], Propeller Inspector, [address] [place] [address] Cardiovascular Catheterization Report Patient Name: NARCISO GLEZ Performing Physician: [id number] Alvaro Bah MD Study Date: 11/05/2020 Verifying Physician: [id number] Bah MD MRN/PID: [id number] [employer] Consultant: Accession/Order#: [id number] Fellow: Jessica Fairchild MD Date of : 1965 Fellow: Gender: M Referring Physician: ALVARO BAH Admit Date: Referring Physician: xxx Surgeon: Referring Physician: xxx Study: Venous Intervention Indications: NARCISO GLEZ is a 55 year old male who presents with hypertension, tobacco use and COPD, RLE DVT with extension into distal iliac system, subacute on chronic sxs with significant pain and edema. Pt admitted from outpt for intervention. Procedure Description: After infiltration of local anesthetic, the right popliteal vein was identified with two dimensional ultrasound. Under direct ultrasound visualization, the right popliteal vein was cannulated with a percutaneous technique. A 9 Bulgarian sheath was placed in the vein. Post-procedure, the venous sheath was left intact and sutured in place. Peripheral Veins: Right popliteal vein was accessed using ultrasound. Navicross was advanced over SAG from right popliteal vein up to IVC. True lumen confirmed in IVC with selective injection. 9F sheath advanced for IVUS. Patient was found to have dual femoral vein system with initial wiring and IVUS of the femoral vein that did not have signficant thrombus burden. IVUS showed patent IVC and large thrombus burden in right common femoral vein extending to one of the femoral veins. We re-wired with SAG and Navicross into the affected femoral vein. Confirmed with IVUS reimaging. Predilation with 16F dilator followed by advancement of 13F Inari ClotTriever sheath. The sheath basket was underexpanded, balloon venoplasty performed with [place] balloon 8 x 40 mm at 6 aryan and 10 x 20 mm at 8 aryan. We then performed three thrombectomy runs with the ClotTriever from the distal external iliac vein into the CFV and femoral vein, with extirpation of material. Thrombus is noted to be subacute in nature by appearance. Venogram and IVUS showed significantly improved lumen gain (straight inline flow re-established). We noted residual chronic appearng thrombus in the mid femoral vein; anticoagulation is indicated for residual clot burden. Figure-of-8 stitch applied with sheath removal. Systemic heparin resumed. Hemo Personnel: + +- + Name Duty + +- + Alvaro Bah MD PROC MD 1 + +- + Madhavi Cheek RT,RCT PROC SCRUB 1 + +- + Bhanu Foy RTR PROC SCRUB 2 + +- + Marianna Proctor RN BSN PROC CIRC 1 + +- + Zee Leger RN PROC CIRC 2 + +- + Krystyna Joshi RN PROC RECORD 1 + +- + Brigida Davenport RN PROC RECORD 2 + +- + Bobby Lida RN PROC NURSE 1 + +- + Sedation Time: + +-- + Sedation Start/End Times Time + +-- + Start 11/05/2020 16:38:13 + +-- + End 11/05/2020 17:49:18 + +-- + Equipment Used: + +------ + Date/Time Description + +------ + 11/05/2020 4:25:14 PM {Misc} [employer]iance Femoral Angio Pack 0 - Qty: 1 Each Part #: [id number] + +------ + 11/05/2020 4:25:18 PM {Misc} Pope Adult Nasal O2 Cannula w/ capnography - Qty: 1 Each Part #: [id number] + +------ + 11/05/2020 4:49:06 PM {Misc Cath} Terumo [place] 9F Sheath 10 cm - Qty: 1 Each Part #: [id number] + +------ + 11/05/2020 4:49:11 PM {Diagnostic Wires} Terumo Glidewire Stiff 0.035mm x 260cm Angled Tip - Qty: 1 Each Part #: [id number] + +------ + 11/05/2020 4:53:30 PM {Not in Inventory} 16 F dilator + +------ + 11/05/2020 4:53:41 PM {Diagnostic Wires} MILI J 0.035 260 cm - Qty: 1 Each Part #: [id number] + +------ + 11/05/2020 4:54:16 PM {Microcatheter} Terumo NaviCross 150 cm Angled Tip - Qty: 1 Each Part #: [id number] +--------- (more content not included)... Normal [facility] TYPE + SCREENon 11-05-2020 ABO TYPE A Normal [facility] Comment on above: Performed By: #### M G #### [facility] [address] [place] [address] RH TYPE Positive Normal [facility] Comment on above: Performed By: #### M G #### [facility] [address] [place] [address] Admission Risk Screen - Adul ton 11-04-2020 Admission Risk Screen - Adult Allergies: Allergies: NKDA: contrast (specific type unknown): Unknown Patient Verification: New W ID Band Applied in my Departmentyes Patient Identity Verified Bypatient ID Band FULL Name, include Middle, spelling matches patient's ID used for verificationyes ID Band Matches Patient ID used for Verficationyes ID Band MRN Matches EMR MRNyes Visitor Restriction: Coronavirus Visitor Restriction: Reasonable restrictions to in-person visitors will be observed due to current coronavirus pandemic. Travel History: COVID-19 Screening Completedno exposure or symptoms Travel or Exposure Past 30 DaysNO travel to International locations in the past 30 days Ebola AlertFor Ebola-like Symptoms: Isolate Patient and Notify Provider/Farm Equipment Assembler For Contact: Notify Provider/Farm Equipment Assembler Advance Directive: Advance Directive/DNRyes Advance Directive typeDurable Power of Cardiology Manager for Healthcare Durable Power of Cardiology Manager AvailabilityDPOA not available now Durable Power of Cardiology Manager [id number] Durable Power of Cardiology Manager contact (name and number)Haylee Leonardo (sister) [phone] Hussein Fall Screen: History of falling (immediate or previous)no (0) Secondary Diagnosisno (0) Intravenous Therapy/ Heparin/Saline Lockyes (20) Gait/Transferringnormal/bedr est/wheelchair (0) Ambulatory Aidsnone/bedrest/nurse assist (0) Mental Statusoriented to own ability (0) Score: Low risk (<25). Moderate risk (25-44). High risk (>44).20 Hussein InterventionsLOW INTERVENTIONS: *patient oriented to surroundings and call system, * patient/family falls education completed and documented, *patients fall status communicated during bedside handoff, *whiteboard updated, *mode of toileting discussed with patient, *bed in low position with brakes locked, *call light in reach, * non-skid footwear Family Violence Screen: Are you or have you been threatened or abused physically, emotionally, or sexually by anyoneno Do you feel UNSAFE going back to the place where you are livingno Clinical assessment: Are there any apparent signs of injuries/behaviors that could be related to abuse/neglectno Social Service Consult for abuse/neglect needed this visitno Functional Screen: Functional Screen: In the recent/past 2-4 weeks, patient or family have noticedno issues that require a speech/language consult at this time AM-PAC- Basic Mobility/Daily Activity: Patient baseline bedboundno Turning from your back to your side while in a flat bed without using bedrailsnone Moving from lying on your back to sitting on the side of a flat bed without using bedrailsnone Moving to and from bed to chair (including a wheelchair)none Standing up from a chair using your arms (e.g. wheelchair or bedside chair) none To walk in hospital roomnone Climbing 3-5 steps with railingnone Basic Mobility - Total Score24 Putting on and taking off regular lower body clothingnone Bathing (including washing, rinsing, drying)none Putting on and taking off regular upper body clothingnone Toileting, which includes using toilet, bedpan or urinalnone Taking care of personal grooming such as brushing teethnone Eating Mealsnone Daily Activity - Total Score24 Learning Assessment (Patient): Patient is Able to be Assessed for Learningyes Factors Influencing Readiness to Learninterest in learning; motivation to learn Factors that Impact Ability to Learnnone Devices/Methods Used to Communicateglasses Learning Preferencesindividual instruction Cultural Considerationsnone Developmental Considerationsnone Zoroastrian Considerationsnone Learning Assessment (Other Learner): Other learner availableno Depression Screen: During the past month, have you often been bothered by feeling down, depressed or hopelessno During the past month, have you often had little interest or pleasure in doing thingsno Have you had any thoughts of harming anyone elseno Hanahan Suicide: Risk Screen Not Applicable/Able to Answerable to be screened In the Past Month: Have you wished you were or could go to sleep and not wake upno In the Past Month: Have you had any actual thoughts of killing yourselfno Lifetime: Have you ever done, started to do, or prepared to do anything to end your lifeno Hanahan Suicide Risknegative Adult Nutrition Screen: Have you recently lost weight without tryingyes; 2-13 lb Have you been eating poorly because of a decreased appetiteno Malnutrition Screening Tool Score1 Malnutrition Screening Tool RiskMST = 0 or 1 Not at risk. Eating well with little or no weight loss Nutrition Consult needed this visitno Can Patient Participate in Room Serviceyes Patient requires Paper Dishes/Plastic Utensilsno Pain Screen: Pain Scalenumerical 0-10 Pain Scale Educationteaching provided Current Pain Level5 = Moderate Acceptable Pain Level5 = Mod (more content not included)... Normal [facility] Coronavirus 2019 RNA by PCR, Screening Asymptomticon 11-04-2020 Coronavirus 2019 RNA by PCR, Screening Asymptomtic Not detected Normal See Below -[facility] Work Phone: Comment on above: SOURCE: Nasal, Nasop haryngealReference Range: Not Detected.This assay is designed to detect the RdRp gene of SARS-CoV-2 via nucleic acid amplification. A Not Detected result does not preclude COVID-19 infection since the adequacy of sample collection and/or low viral burden may result in presence of viral nucleic acids below the clinical sensitivity of this test method. Fact sheet for providers: www.fda.gov/media/476266/downloadFact sheet for patients: www.Ship It Bag Check.gov/media/060343/downloadThis test has received FDA Emergency Use Authorization (EUA) and has been verified by [facility]. This test is only authorized for the duration of time that circumstances exist to justify the authorization of the emergency use of in vitro diagnostic tests for the detection of SARS-CoV-2 virus and/or diagnosis of COVID-19 infection under section 564(b)(1) of the Act, 21 U.S.C. 360bbb-3(b)(1), unless the authorization is terminated or revoked sooner. [facility] is certified under CLIA-88 as qualified to perform high complexity testing. Testing is performed in the [facility] laboratory located at [address] [place] [address]. Discharge Planning [id number] 11-04-2020 Discharge Planning Note2 Discharge Planning: Planned Dispositionhome Discharge DestinationHome [facility] < 20no [place] of Choice Explainedyes Anticipated Discharge [id number] Discharge Planning 11/05/2020 10:58 Transitional care consultant : Attempted to meet with patient, Patient asleep in bed. Continue to follow for discharge needs. Addendum 1522 Attempted again to meet patient, currently off division for surgical procedure. Per AM nursing rounds, patient was on Xarelto prior to admission and was concerned with cost. Left a Xarelto discount card @ bedside. Glory CHOW/RN TCC 11/05/2020 @ 0712 Social Work Note: SW consult for ETOH use for this pt. SW met with pt. Patient presented as alert and oriented, pleasant and cooperative, and agreed to SW visit. Prior to admission, pt reports living at home independently 11/06/20 TIME 12:25PM TRANSITIONAL CASHIER CLERK NOTE MET WITH PT TODAY. SOME CONCERNS REGARDING BEING ABLE TO AFFORD THE XARLETO. PER PT IT IS $600.00 AND HE IS UNABLE TO AFFORD. I TRIED TO SEE IF IT WOULD BE CHEAPER AT [facility] BUT IT WILL NOT BE ANY CHEAPER. $400.00 PER MTH. PT STILL UNABLE TO AFFORD. LET THE RESIDENT KNOW THIS. I DID GIVE THE PT THE COUPONS BUT HIS PHARMACY IS TELLING HIM THEY ARE UNABLE TO USE THEM. PT IS HERE WITH DX OF DVTS. S/P RIGHT THROMBECTOMY. WILL CONTINUE TO FOLLOW ALONG WITH THE TEAM FOR FINAL NEEDS AT DISCHARGE. AT THIS TIME PT DECLINES THE NEED FOR HOME CARE. Johanna WILLIAMN, RN, TCC. Assessment: Discharge Planning Assessment [id number] Primary Contact Name and NumberHaylee Leonardo (sister) [phone](1) Stated Reason for Admissionright leg pain/swelling(1) [place] [facility] [place] Medication Adherence/Afford/Obtainyes Lives Withother relative(s)(1) Living Arrangementshouse(1) Prior Level of FunctioningINDEPENDENT Resource/Environmental Concernsnone(1) Social Determinants of Health IdentifiedSMOKER, ETOH SW ADDRESSED Transportation Home Who/HowFAMILY Anticipated Transition [place](1) Services Anticipated at Transitionnone Anticipated Changes Related to Illnessnone Equipment Needed After Dischargenone Anticipated Discharge Facility/Level of Care NeedsHome Electronic Signatures: Alyx Rogers (SIGNAL INSPECTOR) (Signed 05-Nov-2020 12:24) Authored: Discharge Planning Glory Cevallos (MOTION PICTURE SET WORKER) (Signed 05-Nov-2020 18:56) Authored: Discharge Planning Ethel Mccurdy (RN) (Signed 04-Nov-2020 22:48) Authored: Assessment Johanna Evans (COOR) (Signed 15-Alvaro-2021 12:33) Authored: Discharge Planning, Assessment Last Updated: 06-Nov-2020 12:33 by Johanna Evans (COOR) References: 1. Data Referenced From Patient Profile - Adult v2 04-Nov-2020 21:30 Normal [facility] Laboratory - Blood bankon ABO group Nom (Bld) A [facility] Work Phone: Blood group antibody screen Ql Negative [facility] Work Phone: Rh immune globulin screen (Bld) [Interp] Positive [facility] Work Phone: Laboratory - Chemistry and C hemistry - challengeon 11-04-2020 Albumin BCP dye [Mass/Vol] 3.1 g/dL below low threshold 3.4 - 5.0 [facility] Work Phone: ALP [Catalytic activity/Vol] 156 U/L above high threshold 33 - 120 [facility] Work Phone: ALT With P-5'-P [Catalytic activity/Vol] 44 U/L 10 - 52 [facility] Work Phone: Comment on above: Patients treated wit h Sulfasalazine may generate falsely decreased results for ALT. Anion gap [Moles/Vol] 15 mmol/L 10 - 20 [facility] Work Phone: AST With P-5'-P [Catalytic activity/Vol] 61 U/L above high threshold 9 - 39 [facility] Work Phone: Bilirubin [Mass/Vol] 1.4 mg/dL above high threshold 0.0 - 1.2 [facility] Work Phone: Calcium [Mass/Vol] 8.6 mg/dL 8.6 - 10.3 [facility] Work Phone: Chloride [Moles/Vol] 95 mmol/L below low threshold 98 - 107 [facility] Work Phone: CO2 [Moles/Vol] 29 mmol/L 21 - 32 [facility] Work [facility]: Creatinine [Mass/Vol] 0.85 mg/dL See Below [facility] Work Phone: Comment on above: Reference Range: 0.5 0 - 1.30 Glucose [Mass/Vol] 105 mg/dL above high threshold 74 - 99 [facility] Work Phone: Potassium [Moles/Vol] 3.8 mmol/L 3.5 - 5.3 [facility] Work Phone: [phone] Protein [Mass/Vol] 5.5 g/dL below low threshold 6.4 - 8.2 [facility] Work Phone: Sodium [Moles/Vol] 135 mmol/L below low threshold 136 - 145 [facility] Work Phone: Urea nitrogen [Mass/Vol] 4 mg/dL below low threshold 6 - 23 [facility] Work Phone: Laboratory - Coagulationon 0 11-04-2020 aPTT Coag (PPP) [Time] 40 s above high threshold 25 - 35 [facility] Work Phone: Comment on above: THE APTT IS NO LONGE R USED FOR MONITORING UNFRACTIONATED HEPARIN THERAPY. FOR MONITORING HEPARIN THERAPY, USE THE HEPARIN ASSAY. INR Coag (PPP) [Relative time] 1.3 {INR} above high threshold 0.9 - 1.1 [facility] System Work Phone: PT Coag (PPP) [Time] 15.0 s above high threshold See Below [facility] Work Phone: Comment on above: Reference Range: 10. 1 - 13.3 Laboratory - Hematology and Cell countson 11-04-2020 Erythrocyte distribution width (RBC) [Ratio] 16.2 % above high threshold See Below [facility] Work Phone: Comment on above: Reference Range: 11. 5 - 14.5 Hematocrit (Bld) [Volume fraction] 53.2 % above high threshold See Below [facility] Work Phone: Comment on above: Reference Range: 41. 0 - 52.0 Hemoglobin (Bld) [Mass/Vol] 18.5 g/dL above high threshold See Below [facility] Work Phone: Comment on above: Reference Range: 13. 5 - 17.5 MCHC (RBC) [Mass/Vol] 34.8 g/dL See Below [facility] Work Phone: Comment on above: Reference Range: 32. 0 - 36.0 MCV (RBC) [Entitic vol] 113 fL above high threshold 80 - 100 [facility] Work Phone: [phone] Platelets (Bld) [#/Vol] 190 10*3/uL 150 - 450 [facility] Work Phone: [phone] RBC (Bld) [#/Vol] 4.70 {x10E12/L} See Below [facility] Work Phone: Comment on above: Reference Range: 4.5 0 - 5.90 WBC (Bld) [#/Vol] 5.8 10*3/uL 4.4 - 11.3 [facility] Work Phone: Magnesium, Serumon 1 Magnesium [Mass/Vol] 1.62 mg/dL See Below [facility] Work Phone: Comment on above: Reference Range: 1.6 0 - 2.40 No Panel Informationon 11-04 >60 >60 [facility] Work Phone: Comment on above: CALCULATIONS OF MARLENY MATED GFR ARE PERFORMED USING THE MDRD STUDY EQUATION FOR THE IDMS-TRACEABLE CREATININE METHODS. CLIN CHEM 2007;53:766-72 0.0 {/100_WBC} 0.0 - 0.0 [facility] Work Phone: Patient Profile - Adult v2on 11-04-2020 Patient Profile - Adult v2 Profile: Initial Info: How to be AddressedRich Spoken Language PreferredEnglish Source of Informationpatient Stated Reason for Admissionright leg pain/swelling Primary Contact Name and NumberHaylee Leonardo (sister) [phone] Patient Belongingsremains with patient Patient Belongings Remaining with Patientclothing; medication(s); vision aids; cell phone/electronics; purse[place]wallet [place] Medic[place] Brought to Hospitalyes Medication Dispositionlocked in unit medication cabinet Are you currently using the Personal Electronic Health Record or Mobile Action Wants Family/Rep Notified of Admissionfamily aware Notify PCPnotify PCP Informed of Patient Visiting Rightsyes General Health: Weight in kg75.4 kilogram(s) Weight in urb988.2 pound(s) Weight Methodactual (measured) Scale Typestanding Height in cm177.8 centimeter(s) Height in feet5 feet Height in spurwr33 inch(es) Height Methodstated BMI (kg/m2)23.851 square meter RSP Based Care: How would you like to participate in your carediscussion with doctors What is the number one concern for you during this hospitalizationto treat blood clot What is the most important thing we can do to support you during this hospitalizationto be included in plan of care Is there anything we need to know to best care for amanda/a Substance: Current or Former Substance Use never: e-Cigarette/Vaping, Street Drugs YES: Cigarette/Tobacco, Alcohol Tobacco Cessation Education (provide if tobacco use within the last 12 mos)yes Other Tobacco Use Commentspt smokes 1PPD Alcohol Use Statuscurrent alcohol Alcohol Amount7-9 drinks Alcohol Frequencydaily Alcohol Typebeer; liquor Alcohol Last Use11/04/20 Health Mgmt: Symptoms/Conditions Managed at Homecardiovascular Cardiovascular Symptoms/Conditionshypertens ion Cardiovascular Management Strategiesmedication therapy Cardiovascular Managementmanaged Relationship/Environ: Resource/Environmental Concernsnone Primary Source of Support/Comfortextended family; sibling(s) Lives Withother relative(s) Living Arrangementshouse Services Anticipated at Transitionmedical specialist Anticipated [place] Significant IndicatorsComplete Information Review: Allergies, Home Meds and Significant Events have been Reviewed and Verified with Patient/Familyyes ALLERGY, INTOLERANCE, ADVERSE EVENT: Allergies: NKDA: Active contrast (specific type unknown): Contrast, Unknown, Active Electronic Signatures: Ethel Mccurdy) (Signed 04-Nov-2020 22:10) Authored: Initial Info, General Health, RSP Based Care, Substance, Health Mgmt, Relationship/Environ, Additional Information Last Updated: 04-Nov-2020 22:10 by Ethel MccurdyRN) Normal [facility] No Panel Informationon 10-30 [facility] Work Phone: Laboratory - Chemistry and C hemistry - challengeon 10-29-2020 Albumin BCP dye [Mass/Vol] 3.1 g/dL below low threshold 3.4 - 5.0 [facility] Work Phone: ALP [Catalytic activity/Vol] 173 U/L above high threshold 33 - 120 [facility] Work Phone: ALT With P-5'-P [Catalytic activity/Vol] 52 U/L 10 - 52 [facility] Work Phone: Comment on above: Patients treated wit h Sulfasalazine may generate falsely decreased results for ALT. Anion gap [Moles/Vol] 16 mmol/L 10 - 20 [facility] Work Phone: AST With P-5'-P [Catalytic activity/Vol] 77 U/L above high threshold 9 - 39 [facility] Work Phone: Bilirubin [Mass/Vol] 1.8 mg/dL above high threshold 0.0 - 1.2 [facility] Work Phone: Calcium [Mass/Vol] 8.3 mg/dL below low threshold 8.6 - 10.3 [facility] Work Phone: Chloride [Moles/Vol] 101 mmol/L 98 - 107 [facility] Work Phone: CO2 [Moles/Vol] 26 mmol/L 21 - 32 [facility] Work Phone: Creatinine [Mass/Vol] 0.79 mg/dL See Below [facility] Work Phone: Comment on above: Reference Range: 0.5 0 - 1.30 Glucose [Mass/Vol] 142 mg/dL above high threshold 74 - 99 [facility] Work Phone: Potassium [Moles/Vol] 3.8 mmol/L 3.5 - 5.3 [facility] Work Phone: Protein [Mass/Vol] 5.8 g/dL below low threshold 6.4 - 8.2 [facility] Work Phone: Sodium [Moles/Vol] 139 mmol/L 136 - 145 [facility] Work Phone: Urea nitrogen [Mass/Vol] 4 mg/dL below low threshold 6 - 23 [facility] Work Phone: No Panel Informationon 10-29 >60 >60 [facility] Work Phone: Comment on above: CALCULATIONS OF MARLENY MATED GFR ARE PERFORMED USING THE MDRD STUDY EQUATION FOR THE IDMS-TRACEABLE CREATININE METHODS. CLIN CHEM 2007;53:766-72 81 pg/mL 0 - 99 [facility] Work Phone: Comment on above: . <100 pg/mL - Heart failure wfavwpun158-635 pg/mL - Intermediate probability of acute heart. failure exacerbation. Correlate with clinical. context and patient history. >=300 pg/mL - Heart Failure likely. Correlate with clinical. context and patient history.BNP testing is performed using different testing methodology at [facility] than at other [facility]. Direct result comparisons should only be made within the same method. Tobacco Screening.on [address] [facility] a) Yes [facility] Work Phone: Tobacco Screening. a) Yes [facility] Work Phone: Tobacco Screening. Yes [facility] Work Phone: XR HIP RIGHT 2-3 VIEWS (ROUT INE)on 08-03-2020 XR HIP RIGHT 2-3 VIEWS (ROUTINE) EXAMINATION: XR HIP RIGHT 2-3 VIEWS (ROUTINE) 08/03/2020 2:28 pm HISTORY: ORDERING SYSTEM PROVIDED HISTORY: Follow up, TECHNOLOGIST PROVIDED HISTORY: Injury/Trauma Reason for exam: POST OP RIGHT HIP FX F/U 05/18/20 Cancer History: na Surgery, RadiationHistory: n Encounter Type: Subsequent/Follow-up Mechanism of injury: FALL ORDERING SYSTEM PROVIDED DIAGNOSIS CODES: Z09 Follow up COMPARISON: 07/06/2020. FINDINGS: Two views were submitted. Redemonstration of ORIF right hip with intramedullary nail and dynamic hip screw transfixing intertrochanteric fracture with a stable appearance. The hardware appears intact. The hip joint appears intact. IMPRESSION: Stable postoperative changes right hip with hardware. Workstation ID: [id number] Dictated by: ANTWON LECHUGA on ThuAug 03, 2020 3:32:10 PM EST Transcribed by: ANTWON LECHUGA on ThuAug 03, 2020 3:32:10 PM EST Finalized by: ANTWON LECHUGA on ThuAug 03, 2020 3:32:10 PM EST Normal [facility] Comment on above: Order Comment: Injur y/Trauma or Illness?:Injury/Trauma How long have you had these symptoms (acute/chronic)?:Acute Reason for exam?:POST OP RIGHT HIP FX F/U 05/18/20 History of cancer?:na Surgeries, chemotherapy, or radiation?:n Type of Exam?:Subsequent/Follow-up Mechanism of injury?:FALL XR HIP RIGHT 2-3 VIEWS (ROUT INE)on 07-06-2020 XR HIP RIGHT 2-3 VIEWS (ROUTINE) EXAMINATION: XR HIP RIGHT 2-3 VIEWS (ROUTINE) HISTORY: ORDERING SYSTEM PROVIDED HISTORY: Follow up, TECHNOLOGIST PROVIDED HISTORY: Injury/Trauma Reason for exam: post op right femur fx f/u Cancer History: na Surgery, RadiationHistory: n Encounter Type: Subsequent/Follow-up Mechanism of injury: fell on ice 05/17/20 ORDERING SYSTEM PROVIDED DIAGNOSIS CODES: Z09 Follow up COMPARISON: 05/17/2020 and 06/01/2020. FINDINGS: Two views of the right hip. Anatomic alignment of right femur intertrochanteric fracture with TFN hardware in place. No new additional fractures. Normal hip joint alignment. IMPRESSION: No acute interval change compared to 06/01/2020. Anatomic alignment of right femur intertrochanteric fracture with TFN hardware in place. ST/trw Workstation ID: [id number] Dictated by: SANKET ALARCON on ThuJul 06, 2020 3:40:50 PM EST Transcribed by: TRUPTI TY on ThuJul 06, 2020 3:45:40 PM EST Finalized by: SANKET ALARCON on ThuJul 06, 2020 6:26:46 PM EST Normal [facility] Comment on above: Order Comment: Injur y/Trauma or Illness?:Injury/Trauma How long have you had these symptoms (acute/chronic)?:Acute Reason for exam?:post op right femur fx f/u History of cancer?:na Surgeries, chemotherapy, or radiation?:n Type of Exam?:Subsequent/Follow-up Mechanism of injury?:fell on ice 05/17/20 XR HIP RIGHT 2-3 VIEWS (ROUT INE)on 06-01-2020 XR HIP RIGHT 2-3 VIEWS (ROUTINE) EXAMINATION: XR HIP RIGHT 2-3 VIEWS (ROUTINE) 06/01/2020 4:21 PM HISTORY: ORDERING SYSTEM PROVIDED HISTORY: Follow up, TECHNOLOGIST PROVIDED HISTORY: Injury/Trauma Reason for exam: post op right hip fx f/u Cancer History: na Surgery, RadiationHistory: n Encounter Type: Initial Mechanism of injury: fell on 05/17/20 ORDERING SYSTEM PROVIDED DIAGNOSIS CODES: Z09 Follow up COMPARISON: Right hip x-rays 05/17/2020. FINDINGS: Status post ORIF of the intertrochanteric right hip fracture in expected alignment. No hardware complications. No radiographic evidence of AVN. No significant arthrosis in the right hip joint. IMPRESSION: Expected postoperative appearance. [employer] Workstation ID: [id number] Dictated by: SUSAN KING on ThuJun 01, 2020 5:28:46 PM EST Transcribed by: DG DONG on ThuJun 01, 2020 5:31:35 PM EST Finalized by: SUSAN KING on ThuJun 01, 2020 6:21:09 PM EST Normal [facility] Comment on above: Order Comment: Injur y/Trauma or Illness?:Injury/Trauma How long have you had these symptoms (acute/chronic)?:Acute Reason for exam?:post op right hip fx f/u History of cancer?:na Surgeries, chemotherapy, or radiation?:n Type of Exam?:Initial Mechanism of injury?:fell on 05/17/20 Hematologyon 05-19-2020 Hemoglobin (Bld) [Mass/Vol] 13.1 g/dL Low 13.5 - 17.5 g/dL [facility] Otheron 05-19-2020 Interpretation and review of laboratory results Abnormal [facility] Hematologyon 05-18-2020 aPTT Coag (Bld) [Time] Therapeutic range for APTT's is 68 - 104 seconds [facility] aPTT Coag (Bld) [Time] 26 s [facility] INR Coag (PPP) [Relative time] 1.1 {INR} [facility] PT Coag (PPP) [Time] 13.6 s [facility] Hematocrit (Bld) [Volume fraction] 42.7 % 41 - 53 % [facility] Hemoglobin (Bld) [Mass/Vol] 14.6 g/dL 13.5 - 17.5 g/dL [facility] MCH (RBC) [Entitic mass] 39.8 pg High 26 - 34 pg [facility] MCV (RBC) [Entitic vol] 116.3 fL High 80 - 100 fL [facility] Nucleated RBC (Bld) [#/Vol] 0.00 10*3/uL [facility] Platelets (Bld) [#/Vol] 186 10*3/uL [facility] RBC (Bld) [#/Vol] 3.67 10*6/uL Low [facility] WBC (Bld) [#/Vol] 11.45 10*3/uL High [facility] Metabolic Panelon 05-18-2020 Albumin [Mass/Vol] 2.8 g/dL Low 3.2 - 5.2 g/dL [facility] ALP [Catalytic activity/Vol] 116 U/L 40 - 150 U/L [facility] ALT [Catalytic activity/Vol] 33 U/L 14 - 65 U/L [facility] Anion gap [Moles/Vol] 8 mmol/L Low 10 - 20 mmol/L [facility] AST [Catalytic activity/Vol] 28 U/L 0 - 45 U/L [facility] Bilirubin [Mass/Vol] 1.3 mg/dL 0 - 1.3 mg/dL [facility] Calcium [Mass/Vol] 7.7 mg/dL Low 8.4 - 10. 2 mg/dL [facility] Chloride [Moles/Vol] 105 mmol/L 98 - 108 mmol/L [facility] Creatinine [Mass/Vol] 0.90 mg/dL 0.50 - 1.30 [facility] GFR/1.73 sq M predicted among non-blacks MDRD (S/P/Bld) [Vol rate/Area] The eGFR should be used for monitoring renal function only and not for medication dosing. [facility] Glucose [Mass/Vol] 118 mg/dL High 65 - 99 mg/dL [facility] Potassium [Moles/Vol] 3.9 mmol/L 3.5 - 5.1 mmol/L [facility] Protein [Mass/Vol] 5.3 g/dL Low 6 - 8 g/dL [facility] alth Sodium [Moles/Vol] 135 mmol/L 135 - 145 mmol/L [facility] Urea nitrogen [Mass/Vol] 7 mg/dL Low 8 - 25 mg/dL [facility] Urea nitrogen/Creatinine [Mass ratio] 7.8 mg/mg Low [facility] Otheron 05-18-2020 Interface, Rad In Fu ji Speechq - 05/18/2020 10:52 AM EST EXAMINATION: XR OR HIP RIGHT 2-3 VIEWS HISTORY: ORDERING SYSTEM PROVIDED HISTORY: Rt Hip TFN in OR, TECHNOLOGIST PROVIDED HISTORY: Illness/Other Reason for exam: RT. TFN in OR Encounter Type: Subsequent/Follow-up Additional signs and symptoms: UN Fluoro dose in mGy: 3316.4 ORDERING SYSTEM PROVIDED DIAGNOSIS CODES: S72.146A Closed nondisplaced intertrochanteric fracture of femur, unspecified laterality, initial encounter ([facility]) W19.XXXA Fall at home, initial encounter Y92.009 Fall at home, initial encounter S72.144A Closed nondisplaced intertrochanteric fracture of right femur, initial encounter ([facility]) COMPARISON: 05/17/2020 TECHNIQUE: Fluoro Dose Ka,r mGy: Fluoro dose in Ka,r mGy: 3316.4 FLUOROSCOPY TIME: Fluoro time in minutes: 0.6 Number of images obtained: 5. IMPRESSION: FINDINGS/ 1. Please see operative report. 2. The previously seen acute intertrochanteric fracture of the proximal right femur has been internally fixed to near anatomic alignment with an intramedullary daksha, without visualized hardware complications. 3. 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 Workstation ID: [id number] [facility] EXAMINATION: XR OR H IP RIGHT 2-3 VIEWS HISTORY: ORDERING SYSTEM PROVIDED HISTORY: Rt Hip TFN in OR, TECHNOLOGIST PROVIDED HISTORY: Illness/Other Reason for exam: RT. TFN in OR Encounter Type: Subsequent/Follow-up Additional signs and symptoms: UN Fluoro dose in mGy: 3316.4 ORDERING SYSTEM PROVIDED DIAGNOSIS CODES: S72.146A Closed nondisplaced intertrochanteric fracture of femur, unspecified laterality, initial encounter ([facility]) W19.XXXA Fall at home, initial encounter Y92.009 Fall at home, initial encounter S72.144A Closed nondisplaced intertrochanteric fracture of right femur, initial encounter ([facility]) COMPARISON: 05/17/2020 TECHNIQUE: Fluoro Dose Ka,r mGy: Fluoro dose in Ka,r mGy: 3316.4 FLUOROSCOPY TIME: Fluoro time in minutes: 0.6 Number of images obtained: 5. [facility] FINDINGS/ 1. Please see operative report. 2. The previously seen acute intertrochanteric fracture of the proximal right femur has been internally fixed to near anatomic alignment with an intramedullary daksha, without visualized hardware complications. 3. 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 Workstation ID: [id number] [facility] GFR/1.73 sq M.predicted CKD-EPI (S/P/Bld) [Vol rate/Area] 96 >=60 mL/min/1.73 m2 [facility] HCO3 [Moles/Vol] 26 mmol/L 21 - 32 mmol/L [facility] Interpretation and review of laboratory results Abnormal [facility] Interpretation and review of laboratory results Normal [facility] During the induction phase of oral anticoagulation, the INR may not reflect the anticoagulation status of the patient. Therapeutic ranges for INR's are: Most clinical situations: INR 2.0-3.0 Mechanical Prosthetic Valve: INR 2.5-3.5 Critical: INR >5.0 [facility] Erythrocyte distribution width (RBC) [Entitic vol] 13.3 % 11.6 - 14.8 % [facility] Interpretation and review of laboratory results Abnormal [facility] MCHC (RBC) [Mass/Vol] 34.2 g/dL 31 - 37 g/dL [facility] Nucleated RBC/100 WBC (Bld) [Ratio] 0.0 % [facility] Platelet mean volume (Bld) [Entitic vol] 9.7 fL 9.4 - 12.4 fL [facility] Hematologyon 05-17-2020 Band form neutrophils/100 WBC (Bld) 0.0 % [facility] Basophils (Bld) [#/Vol] 0.00 10*3/uL [facility] Basophils/100 WBC (Bld) 0.0 % [facility] Eosinophils (Bld) [#/Vol] 0.00 10*3/uL [facility] Eosinophils/100 WBC (Bld) 0.0 % [facility] Hematocrit (Bld) [Volume fraction] 46.9 % 41 - 53 % [facility] Hemoglobin (Bld) [Mass/Vol] 15.9 g/dL 13.5 - 17.5 g/dL [facility] Lymphocytes (Bld) [#/Vol] 0.92 10*3/uL [facility] Lymphocytes/100 WBC (Bld) 5.3 % [facility] MCH (RBC) [Entitic mass] 38.8 pg High 26 - 34 pg [facility] MCV (RBC) [Entitic vol] 114.4 fL High 80 - 100 fL [facility] Metamyelocytes/100 WBC (Bld) 0.0 % [facility] Monocytes (Bld) [#/Vol] 0.13 10*3/uL Low [facility] Monocytes/100 WBC (Bld) 0.9 % [facility] Myelocytes/100 WBC (Bld) 0.0 % [facility] Neutrophils (Bld) [#/Vol] 13.85 10*3/uL High [facility] Neutrophils/100 WBC (Bld) 93.0 % [facility] Nucleated RBC (Bld) [#/Vol] 0.00 10*3/uL [facility] Platelets (Bld) [#/Vol] 211 10*3/uL [facility] RBC (Bld) [#/Vol] 4.10 10*6/uL Low [facility] ealt RBC morphology finding Nom (Bld) See Comment [facility] Comment on above: RBC Indices confirme d with manual peripheral smear review. WBC (Bld) [#/Vol] 14.89 10*3/uL High [facility] Imm/Pathon 05-17-2020 MRSA DNA EJ+probe Ql (Unsp spec) Negative MRSA NEGATIVE [facility] Metabolic Panelon 05-17-2020 Albumin [Mass/Vol] 3.2 g/dL 3.2 - 5.2 g/dL [facility] ALP [Catalytic activity/Vol] 124 U/L 40 - 150 U/L [facility] ALT [Catalytic activity/Vol] 39 U/L 14 - 65 U/L [facility] Anion gap [Moles/Vol] 9 mmol/L Low 10 - 20 mmol/L [facility] AST [Catalytic activity/Vol] 37 U/L 0 - 45 U/L [facility] Bilirubin [Mass/Vol] 1.0 mg/dL 0 - 1.3 mg/dL [facility] Calcium [Mass/Vol] 8.2 mg/dL Low 8.4 - 10. 2 mg/dL [facility] Chloride [Moles/Vol] 106 mmol/L 98 - 108 mmol/L [facility] Creatinine [Mass/Vol] 0.76 mg/dL 0.50 - 1.30 [facility] GFR/1.73 sq M predicted among non-blacks MDRD (S/P/Bld) [Vol rate/Area] The eGFR should be used for monitoring renal function only and not for medication dosing. [facility] Glucose [Mass/Vol] 119 mg/dL High 65 - 99 mg/dL [facility] Potassium [Moles/Vol] 3.8 mmol/L 3.5 - 5.1 mmol/L [facility] Protein [Mass/Vol] 6.0 g/dL 6 - 8 g/dL [facility] alth Sodium [Moles/Vol] 138 mmol/L 135 - 145 mmol/L [facility] Urea nitrogen [Mass/Vol] 5 mg/dL Low 8 - 25 mg/dL [facility] Urea nitrogen/Creatinine [Mass ratio] 6.6 mg/mg Low [facility] Other 05-17-2020 Interpretation and review of laboratory results Normal [facility] Influenza A Not Detected Not Detected [facility] Influenza B Not Detected Not Detected [facility] Interpretation and review of laboratory results Normal [facility] SARS-CoV-2 Not Detected Not Detected [facility] This test was perfor med under the FDA's Emergency Use Authorization (EUA). Testing was performed using the [employer] veto SARS-CoV-2 & Influenza A/B Nucleic Acid Test on the veto Zina System. This test has not been approved for use in asymptomatic patients and its performance in this patient population has not been evaluated. Negative results do not rule out the presence of SARS-CoV-2, influenza A, and/or influenza B. Fact sheets for the EUA can be found at the following links: For Healthcare Providers: https://www.fda.gov/media/2190/download For Patients: https://www.fda.gov/media/2191/download [facility] Blasts/100 WBC (Bld) 0.0 % [facility] Erythrocyte distribution width (RBC) [Entitic vol] 13.1 % 11.6 - 14.8 % [facility] Interpretation and review of laboratory results Abnormal [facility] MCHC (RBC) [Mass/Vol] 33.9 g/dL 31 - 37 g/dL [facility] Nucleated RBC/100 WBC (Bld) [Ratio] 0.0 % [facility] Other cells/100 WBC Manual cnt (Bld) 0.0 % [facility] Plasma cells/100 WBC (Bld) 0.0 % [facility] Platelet mean volume (Bld) [Entitic vol] 9.4 fL 9.4 - 12.4 fL [facility] Promyelocytes/100 WBC (Bld) 0.0 % [facility] Variant lymphocytes/100 WBC (Bld) 0.9 % [facility] GFR/1.73 sq M.predicted CKD-EPI (S/P/Bld) [Vol rate/Area] 103 >=60 mL/min/1.73 m2 [facility] HCO3 [Moles/Vol] 27 mmol/L 21 - 32 mmol/L [facility] Interpretation and review of laboratory results Abnormal [facility] Interface, Rad In Fu ji Speechq - 05/17/2020 7:15 PM EST EXAMINATION: XR HIP RIGHT WITH PELVIS 2-3 VIEWS (ROUTINE), 05/17/2020: HISTORY: pain s/p fall COMPARISON: None. FINDINGS: AP pelvis is submitted with a modified frogleg lateral view of the right hip. There appears to be a nondisplaced acute intertrochanteric fracture of the proximal right femur. The femoral head is well positioned in the acetabulum. No additional acute osseous injury is seen. The bony pelvis and left hip appear intact. IMPRESSION: Nondisplaced acute intertrochanteric fracture of the proximal right femur. No additional acute findings are seen. Workstation ID: [id number] [facility] EXAMINATION: XR HIP RIGHT WITH PELVIS 2-3 VIEWS (ROUTINE), 05/17/2020: HISTORY: pain s/p fall COMPARISON: None. FINDINGS: AP pelvis is submitted with a modified frogleg lateral view of the right hip. There appears to be a nondisplaced acute intertrochanteric fracture of the proximal right femur. The femoral head is well positioned in the acetabulum. No additional acute osseous injury is seen. The bony pelvis and left hip appear intact. [facility] Nondisplaced acute intertrochanteric fracture of the proximal right femur. No additional acute findings are seen. Workstation ID: [id number] [facility] XR FOOT LEFT 3+ VIEWS (STAND EFREM)on 04-14-2020 XR FOOT LEFT 3+ VIEWS (STANDARD) EXAMINATION: XR FOOT LEFT 3+ VIEWS (STANDARD) 04/14/2020 12:58 pm HISTORY: ORDERING SYSTEM PROVIDED HISTORY: fb over bottom of first mtp, TECHNOLOGIST PROVIDED HISTORY: Injury/Trauma Reason for exam: left foot pain after he stepped on a thorn Cancer History: na Surgery, RadiationHistory: n Encounter Type: Initial Mechanism of injury: stepped on thorn ORDERING SYSTEM PROVIDED DIAGNOSIS CODES: S90.852A Foreign body in foot, left, initial encounter COMPARISON: None FINDINGS: No acute fracture is seen. Alignment of the osseous structures is normal. The joint spaces are preserved. The soft tissues appear unremarkable. No significant soft tissue gas is seen. No radiopaque density is seen within the visualized soft tissues to suggest retained radiopaque foreign body. Small posterior and plantar calcaneal spur is seen. IMPRESSION: No evidence for acute fracture or malalignment. Small plantar and posterior calcaneal spur. The soft tissues appear unremarkable. No significant soft tissue gas is seen. No radiopaque density is seen within the visualized soft tissues to suggest retained radiopaque foreign body. Workstation ID: [id number] Dictated by: RAFAEL CLEARY on Rust Apr 14, 2020 1:46:31 PM EST Transcribed by: RAFAEL CLEARY on Rust Apr 14, 2020 1:46:31 PM EST Finalized by: RAFAEL CLEARY on Rust Apr 14, 2020 1:46:31 PM EST Normal [facility] Comment on above: Order Comment: Injur y/Trauma or Illness?:Injury/Trauma How long have you had these symptoms (acute/chronic)?:Acute Reason for exam?:left foot pain after he stepped on a thorn History of cancer?:na Surgeries, chemotherapy, or radiation?:n Type of Exam?:Initial Mechanism of injury?:stepped on thorn No evidence for acut e fracture or malalignment. Small plantar and posterior calcaneal spur. The soft tissues appear unremarkable. No significant soft tissue gas is seen. No radiopaque density is seen within the visualized soft tissues to suggest retained radiopaque foreign body. Workstation ID: [id number] [facility] EXAMINATION: XR FOOT LEFT 3+ VIEWS (STANDARD) 04/14/2020 12:58 pm HISTORY: ORDERING SYSTEM PROVIDED HISTORY: fb over bottom of first mtp, TECHNOLOGIST PROVIDED HISTORY: Injury/Trauma Reason for exam: left foot pain after he stepped on a thorn Cancer History: na Surgery, RadiationHistory: n Encounter Type: Initial Mechanism of injury: stepped on thorn ORDERING SYSTEM PROVIDED DIAGNOSIS CODES: S90.852A Foreign body in foot, left, initial encounter COMPARISON: None FINDINGS: No acute fracture is seen. Alignment of the osseous structures is normal. The joint spaces are preserved. The soft tissues appear unremarkable. No significant soft tissue gas is seen. No radiopaque density is seen within the visualized soft tissues to suggest retained radiopaque foreign body. Small posterior and plantar calcaneal spur is seen. [facility] Interface, Rad In Fu ji Speechq - 04/14/2020 1:49 PM EST EXAMINATION: XR FOOT LEFT 3+ VIEWS (STANDARD) 04/14/2020 12:58 pm HISTORY: ORDERING SYSTEM PROVIDED HISTORY: fb over bottom of first mtp, TECHNOLOGIST PROVIDED HISTORY: Injury/Trauma Reason for exam: left foot pain after he stepped on a thorn Cancer History: na Surgery, RadiationHistory: n Encounter Type: Initial Mechanism of injury: stepped on thorn ORDERING SYSTEM PROVIDED DIAGNOSIS CODES: S90.852A Foreign body in foot, left, initial encounter COMPARISON: None FINDINGS: No acute fracture is seen. Alignment of the osseous structures is normal. The joint spaces are preserved. The soft tissues appear unremarkable. No significant soft tissue gas is seen. No radiopaque density is seen within the visualized soft tissues to suggest retained radiopaque foreign body. Small posterior and plantar calcaneal spur is seen. IMPRESSION: No evidence for acute fracture or malalignment. Small plantar and posterior calcaneal spur. The soft tissues appear unremarkable. No significant soft tissue gas is seen. No radiopaque density is seen within the visualized soft tissues to suggest retained radiopaque foreign body. Workstation ID: [id number] [facility] Otheron 03-30-2019 Adenovirus DNA EJ+probe (Unsp spec) [#/Vol] Not Detected See Below -[facility] Work Phone: Comment on above: SOURCE: Nasal SwabRe ference Range: Not DetectedDetects Serotypes B and E. Detection of Serotype C may belimited. If Adenovirus infection is suspected and a Not Detected result is returned the sample should be re-testedfor adenovirus using an independent method (e.g. [employer] Adenovirus Quantitative Real-time PCR test). RHINO CALLED TO MARIO , 04/02/2019 12:22 FLUAV RNA EJ+probe (Unsp spec) [#/Vol] Not Detected See Below [facility] Work Phone: Comment on above: Reference Range: Not Detected RHINO CALLED TO MARIO , 04/02/2019 12:22 FLUBV RNA EJ+probe (Unsp spec) [#/Vol] Not Detected See Below [facility] Work Phone: Comment on above: Reference Range: Not Detected RHINO CALLED TO [facility] , 04/02/2019 12:22 hMPV RNA EJ+probe (Unsp spec) [#/Vol] Not Detected See Below [facility] Work Phone: Comment on above: Reference Range: Not Detected RHINO CALLED TO [facility] , 04/02/2019 12:22 Rhinovirus RNA EJ+probe Ql (Unsp spec) Positive Abnormal See Below [facility] Work Phone: Comment on above: Reference Range: Not DetectedCross-reactivity has been observed between certain Rhinovirus strains and the Enterovirus assay.Target Enriched Multiplex Polymerase Chain Reaction (TEM-PCR) allows for the detection of multiple pathogens out of a single reaction. This test was developed andits performance characteristics determined by [employer]. It has not been cleared or approved by the U.S. Food and Drug Administration. Results should be used inconjunction with clinical findings, and should not form the sole basisfor a diagnosis or treatment decision.TEM-PCR is a licensed technology of [employer]. Pe rformed At:[facility]Wal[address] [place], [place] [address]KojcazboSharri Jorge PhD HCLD(ABB)CLIA# [id number] CALLED TO MARIO, 04/02/2019 12:22 RHINO CALLED TO [facility] , 04/02/2019 12:22 Not Detected See Below [facility] Work Phone: Comment on above: Reference Range: Not DetectedCross-reactivity has been observed between certain Rhinovirus strains and the Enterovirus assay. RHINO CALLED TO MARIO , 04/02/2019 12:22 Reference Range: Not Detected Reference Range: Not DetectedThe Human Coronavirus assay detects Human coronavirustypes 229E, OC43, NL63, and HKU1. Reference Range: Not DetectedThe Respiratory Syncytial Viral assay detects both types Aand B, however it does not distinguish between the two. XR Chest 2 Viewson 7 XR Chest 2 Views Exam Date/Time:03/03 13:32 EDTReason for Exam:Shortness of breath (SOB)ReportXR CHEST, TWO VIEWS:HISTORY: Cough and shortness of breath, history of COPD.COMPARISON: Chest 05/08/2015.FINDINGS: The cardiomediastinal silhouette appears normal. The lungs appearhyperinflated and there is mild bronchial wall thickening consistent withhistory of COPD. There is no focal consolidation, pleural effusion, orpneumothorax. There is mild likely chronic anterior wedging at a few thoracicvertebral bodies including approximately T5, T6, and T12 however these are ageindeterminate. There is a surgical plate and multiple screws in the leftclavicle.IMPRESSION:1. No acute pulmonary process.2. COPD.3. There are a few mild anterior compression fractures in the thoracic spinewhich are age indeterminate but likely chronic in nature. Follow up MRI may beconsidered. FINAL REPORT Dictated: 03/03/2017 4:52 pm Noah Jolley MD (Electronic Signature): 03/03/2017 4:52 pmSigned by: Noah Jolley MD Technologist: H[facility] Vital Signs Date Time Vital Sign Value Performing Clinician Efraini martha 08-17-2024 11:35-0400 Body temperature 95.72 [degF] DR AUBRIE BIRMINGHAM MD [facility] 08-17-2024 11:35-0400 Diastolic Blood Pressure Non-Invasive 90 mm[Hg] DR AUBRIE BIRMINGHAM MD [facility] 08-17-2024 11:35-0400 Heart rate 73 /min DR AUBRIE BIRMINGHAM MD [facility] 08-17-2024 11:35-0400 Respiratory rate 18 /min DR AUBRIE BIRMINGHAM MD [facility] 08-17-2024 11:35-0400 Systolic Blood Pressure Non-Invasive 131 mm[Hg] DR AUBRIE BIRMINGHAM MD [facility] 08-17-2024 11:14-0400 Heart rate 76 /min DR AUBRIE BIRMINGHAM MD [address] 08-17-2024 11:14-0400 Diastolic Blood Pressure Non-Invasive 79 mm[Hg] DR AUBRIE BIRMINGHAM MD [address] 08-17-2024 11:14-0400 Mean blood pressure 89 mm[Hg] DR AUBRIE BIRMINGHAM MD [address] [place] [address] 08-17-2024 11:14-0400 Respiratory rate 18 /min DR AUBRIE BIRMINGHAM MD [address] 08-17-2024 11:14-0400 Systolic Blood Pressure Non-Invasive 107 mm[Hg] DR AUBRIE BIRMINGHAM MD [facility] 08-17-2024 11:00-0400 Body temperature 97.52 [degF] DR AUBRIE BIRMINGHAM MD [facility] 08-17-2024 11:00-0400 Diastolic Blood Pressure Non-Invasive 95 mm[Hg] DR AUBRIE BIRMINGHAM MD [facility] 08-17-2024 11:00-0400 Heart rate 78 /min DR AUBRIE BIRMINGHAM MD [facility] 08-17-2024 11:00-0400 Mean blood pressure 107 mm[Hg] DR AUBRIE BIRMINGHAM MD [facility] 08-17-2024 11:00-0400 Systolic Blood Pressure Non-Invasive 127 mm[Hg] DR AUBRIE BIRMINGHAM MD [facility] 08-17-2024 10:50-0400 Heart rate 85 /min DR AUBRIE BIRMINGHAM MD [facility] 08-17-2024 10:50-0400 Respiratory Rate - Anes 18 br/min DR AUBRIE BIRMINGHAM MD [facility] 08-17-2024 10:45-0400 Respiratory Rate - Anes 12 br/min DR AUBRIE BIRMINGHAM MD [facility] 08-17-2024 10:40-0400 Respiratory Rate - Anes 14 br/min DR AUBRIE BIRMINGHAM MD [facility] 08-17-2024 08:59-0400 Body height 177.[address] AUBRIE BIRMINGHAM MD [facility] 08-17-2024 08:59-0400 Body weight 75.[address] AUBRIE BIRMINGHAM MD [facility] 08-17-2024 08:45-0400 Body temperature 96.62 [degF] DR AUBRIE BIRMINGHAM MD [facility] 08-17-2024 08:45-0400 Heart rate 74 /min DR AUBRIE BIRMINGHAM MD [facility] 08-03-2024 10:21-[address] AUBRIE BIRMINGHAM MD [facility] 08-03-2024 10:21-[address] AUBRIE BIRMINGHAM MD [facility] 08-03-2024 10:21-0400 Body height [address] AUBRIE BIRMINGHAM MD [facility] 08-03-2024 10:21-0400 Body temperature 97.7 [degF] DR AUBRIE BIRMINGHAM MD [facility] 08-03-2024 10:21-0400 Body weight 77.[address] AUBRIE BIRMINGHAM MD [facility] 08-03-2024 10:21-0400 Body weight 26.54 kg/m2 DR AUBRIE BIRMINGHAM MD [address] [place] [address] 08-03-2024 10:21-0400 Diastolic Blood Pressure Non-Invasive 79 mm[Hg] DR AUBRIE BIRMINGHAM MD [address] 08-03-2024 10:21-0400 Heart rate 73 /min DR AUBRIE BIRMINGHAM MD [address] [place] [address] 08-03-2024 10:21-0400 Systolic Blood Pressure Non-Invasive 114 mm[Hg] DR AUBRIE BIRMINGHAM MD [address] [place] [address] 07-08-2024 09:20-0500 Blood Pressure Cuff Size DR AUBRIE BIRMINGHAM MD [address] 07-08-2024 09:20-[address] AUBRIE BIRMINGHAM MD [address] 07-08-2024 09:20-[address] AUBRIE BIRMINGHAM MD [facility] 07-08-2024 09:20-0500 Body height 177.[address] AUBRIE BIRMINGHAM MD [facility] 07-08-2024 09:20-0500 Body temperature 97.7 [degF] DR AUBRIE BIRMINGHAM MD [facility] 07-08-2024 09:20-0500 Body weight [address] AUBRIE BIRMINGHAM MD [facility] 07-08-2024 09:20-0500 Body weight 24.04 kg/m2 DR AUBRIE BIRMINGHAM MD [facility] 07-08-2024 09:20-0500 Diastolic Blood Pressure Non-Invasive 92 mm[Hg] DR AUBRIE BIRMINGHAM MD [facility] 07-08-2024 09:20-0500 Heart rate 85 /min DR AUBRIE BIRMINGHAM MD [facility] 07-08-2024 09:20-0500 Respiratory rate 18 /min DR AUBRIE BIRMINGHAM MD [facility] 07-08-2024 09:20-0500 Systolic Blood Pressure Non-Invasive 130 mm[Hg] DR AUBRIE BIRMINGHAM MD [address] 02-22-2024 13:18-0400 Respiratory rate 18 /min DR DONNA FAJARDO MD [address] [place] [address] 02-22-2024 11:30-0400 Diastolic Blood Pressure Non-Invasive 79 mm[Hg] DR DONNA FAJARDO MD [address] [place] [address] 02-22-2024 11:30-0400 Heart rate 96 /min DR DONNA FAJARDO MD [address] [place] [address] 02-22-2024 11:30-0400 Respiratory rate 20 /min DR DONNA FAJARDO MD [address] [place] [address] 02-22-2024 11:30-0400 Systolic Blood Pressure Non-Invasive 103 mm[Hg] DR DONNA FAJARDO MD [address] [place] [address] 02-22-2024 07:55-0400 Body temperature 98.24 [degF] DR DONNA FAJARDO MD [address] [place] [address] 02-22-2024 07:55-0400 Diastolic Blood Pressure Non-Invasive 72 mm[Hg] DR DONNA FAJARDO MD [address] [place] [address] 02-22-2024 07:55-0400 Heart rate 96 /min DR DONNA FAJARDO MD [address] [place] [address] 02-22-2024 07:55-0400 Mean blood pressure 82 mm[Hg] DR DONNA FAJARDO MD [facility] 02-22-2024 07:55-0400 Reason For Taking VItal Signs DR DONNA FAJARDO MD [address] [place] [address] 02-22-2024 07:55-0400 Respiratory rate 18 /min DR DONNA FAJARDO MD [address] 02-22-2024 07:55-0400 Systolic Blood Pressure Non-Invasive 101 mm[Hg] DR DONNA FAJARDO MD [address] [place] [address] 02-22-2024 07:42-0400 Heart rate 100 /min DR DONNA FAJARDO MD [address] 02-21-2024 22:30-0400 Blood Pressure Cuff Size DR DONNA FAJARDO MD [address] 02-21-2024 22:30-[address] DONNA FAJARDO MD [address] [place] [id number] 02-21-2024 22:30-[address] DONNA FAJARDO MD [address] 02-21-2024 22:30-0400 Body temperature 98.42 [degF] DR DONNA FAJARDO MD [address] [place] [address] 02-21-2024 22:30-0400 Diastolic Blood Pressure Non-Invasive 80 mm[Hg] DR DONNA FAJARDO MD [address] [place] [address] 02-21-2024 22:30-0400 Heart rate 105 /min DR DONNA FAJARDO MD [address] [place] [address] 02-21-2024 22:30-0400 Reason For Taking VItal Signs DR DONNA FAJARDO MD [address] [place] [address] 02-21-2024 22:30-0400 Systolic Blood Pressure Non-Invasive 113 mm[Hg] DR DONNA FAJARDO MD [address] [place] [address] 02-21-2024 20:22-0400 Heart rate 106 /min DR DONNA FAJARDO MD [address] [place] [address] 02-21-2024 20:12-0400 Blood Pressure Cuff Size DR DONNA FAJARDO MD [address] 02-21-2024 20:12-[address] DONNA FAJARDO MD [address] [place] [address] 02-21-2024 20:12-[address] DONNA FAJARDO MD [address] [place] [address] 02-21-2024 15:32-0400 Blood Pressure Cuff Size DR DONNA FAJARDO MD [address] 02-21-2024 15:32-[address] DONNA FAJARDO MD [address] [place] [address] 02-21-2024 15:32-[address] DONNA FAJARDO MD [address] [place] [address] 02-21-2024 15:32-0400 Body temperature 98.06 [degF] DR DONNA FAJARDO MD [address] [place] [address] 02-21-2024 15:32-0400 Reason For Taking VItal Signs DR DONNA FAJARDO MD [address] [place] [address] 02-19-2024 16:19-0400 Body height 177.[address] DONNA FAJARDO MD [address] 02-19-2024 16:19-0400 Body weight 82.[address] DONNA FAJARDO MD [address] [place] [address] 02-19-2024 16:19-0400 Body weight 26.13 kg/m2 DR DONNA FAJARDO MD [address] [place] [address] 02-18-2024 00:44-0400 Heart rate 100 /min DR DONNA FAJARDO MD [address] [place] [address] 02-17-2024 21:43-0400 Mean blood pressure 98 mm[Hg] DR DONNA FAJARDO MD [address] 02-17-2024 14:58-0400 Body weight 80.[address] DONNA FAJARDO MD [facility] 03-06-2022 14:12-0400 Body height 172.72 cm Oriana Nag S Mallapareddi Work Phone: [facility] Work Phone: 03-06-2022 14:12-0400 Body mass index (BMI) [Ratio] 25.09 kg/m2 Oriana Nag S Mallapareddi Work Phone: [facility] Work Phone: 03-06-2022 14:12-0400 Body surface area Derived from formula 1.88 m2 Oriana Nag S Mallapareddi Work Phone: [facility] Work Phone: 03-06-2022 14:12-0400 Body weight 74.84 kg Oriana Nag S Mallapareddi Work Phone: [facility] Work Phone: 03-06-2022 14:12-0400 Diastolic blood pressure 84 mm[Hg] Oriana Nag S Mallapareddi Work Phone: [facility] Work Phone: 03-06-2022 14:12-0400 Heart rate 91 /min Oriana Nag S Mallapareddi Work Phone: [facility] Work Phone: 03-06-2022 14:12-0400 Systolic blood pressure 120 mm[Hg] Oriana Nag S Mallapareddi Work Phone: [facility] Work Phone: 02-18-2022 14:05-0400 Body height 172.72 cm Oriana Nag S Mallapareddi Work Phone: [facility] Work Phone: 02-18-2022 14:05-0400 Body mass index (BMI) [Ratio] 24.68 kg/m2 Oriana Nag S Mallapareddi Work Phone: [facility] Work Phone: 02-18-2022 14:05-0400 Body surface area Derived from formula 1.87 m2 Oriana Nag S Mallapareddi Work Phone: [facility] Work Phone: 02-18-2022 14:05-0400 Body weight 73.62 kg Oriana Nag S Mallapareddi Work Phone: [facility] Work Phone: 02-18-2022 14:05-0400 Diastolic blood pressure 88 mm[Hg] Oriana Nag S Mallapareddi Work Phone: [facility] Work Phone: 02-18-2022 14:05-0400 Heart rate 96 /min Oriana Nag S Mallapareddi Work Phone: [facility] Work Phone: 02-18-2022 14:05-0400 Systolic blood pressure 102 mm[Hg] Oriana Nag S Mallapareddi Work Phone: [facility] Work Phone: 01-20-2022 16:28-0400 Body height 172.72 cm Oriana Nag S Mallapareddi Work Phone: [facility] Work Phone: 01-20-2022 16:28-0400 Body mass index (BMI) [Ratio] 24.81 kg/m2 Oriana Nag S Mallapareddi Work Phone: [facility] Work Phone: 01-20-2022 16:28-0400 Body surface area Derived from formula 1.87 m2 Oriana Nag S Mallapareddi Work Phone: [facility] Work Phone: 01-20-2022 16:28-0400 Body weight 74.02 kg Oriana Nag S Mallapareddi Work Phone: [facility] Work Phone: 01-20-2022 16:28-0400 Diastolic blood pressure 90 mm[Hg] Oriana Nag S Mallapareddi Work Phone: [facility] Work Phone: 01-20-2022 16:28-0400 Heart rate 96 /min Oriana Nag S Mallapareddi Work Phone: [facility] Work Phone: 01-20-2022 16:28-0400 Systolic blood pressure 118 mm[Hg] Oriana Nag S Mallapareddi Work Phone: [facility] Work Phone: 11-19-2021 16:31-0400 Body height 172.72 cm Oriana Nag S Mallapareddi Work Phone: [facility] Work Phone: 11-19-2021 16:31-0400 Body mass index (BMI) [Ratio] 25.74 kg/m2 Oriana Nag S Mallapareddi Work Phone: [facility] Work Phone: 11-19-2021 16:31-0400 Body surface area Derived from formula 1.9 m2 Oriana Nag S Mallapareddi Work Phone: [facility] Work Phone: 11-19-2021 16:31-0400 Body weight 76.8 kg Oriana Nag S Mallapareddi Work Phone: [facility] Work Phone: 11-19-2021 16:31-0400 Diastolic blood pressure 76 mm[Hg] Oriana Nag S Mallapareddi Work Phone: [facility] Work Phone: 11-19-2021 16:31-0400 Heart rate 104 /min Oriana Nag S Mallapareddi Work Phone: [facility] Work Phone: 11-19-2021 16:31-0400 Systolic blood pressure 102 mm[Hg] Oriana Nag S Mallapareddi Work Phone: [facility] Work Phone: 09-03-2021 16:07-0400 Body height 172.72 cm Oriana Nag S Mallapareddi Work Phone: [facility] Work Phone: 09-03-2021 16:07-0400 Body mass index (BMI) [Ratio] 26.21 kg/m2 Oriana Nag S Mallapareddi Work Phone: [facility] Work Phone: 09-03-2021 16:07-0400 Body surface area Derived from formula 1.92 m2 Oriana Nag S Mallapareddi Work Phone: [facility] Work Phone: 09-03-2021 16:07-0400 Body weight 78.18 kg Oriana Nag S Mallapareddi Work Phone: [facility] Work Phone: 09-03-2021 16:07-0400 Diastolic blood pressure 98 mm[Hg] Oriana Nag S Mallapareddi Work Phone: [facility] Work Phone: 09-03-2021 16:07-0400 Heart rate 96 /min Oriana Nag S Mallapareddi Work Phone: [facility] Work Phone: 09-03-2021 16:07-0400 Systolic blood pressure 132 mm[Hg] Oriana Nag S Mallapareddi Work Phone: [facility] Work Phone: 08-13-2021 16:10-0400 Body height 172.72 cm Oriana Nag S Mallapareddi Work Phone: [facility] Work Phone: 08-13-2021 16:10-0400 Body mass index (BMI) [Ratio] 26.46 kg/m2 Oriana Nag S Mallapareddi Work Phone: [facility] Work Phone: 08-13-2021 16:10-0400 Body surface area Derived from formula 1.93 m2 Oriana Nag S Mallapareddi Work Phone: [facility] Work Phone: 08-13-2021 16:10-0400 Body weight 78.92 kg Oriana Nag S Mallapareddi Work Phone: [facility] Work Phone: 08-13-2021 16:10-0400 Diastolic blood pressure 90 mm[Hg] Oriana Nag S Mallapareddi Work Phone: [facility] Work Phone: 08-13-2021 16:10-0400 Heart rate 84 /min Oriana Nag S Mallapareddi Work Phone: [facility] Work Phone: 08-13-2021 16:10-0400 Systolic blood pressure 128 mm[Hg] Oriana Nag S Mallapareddi Work Phone: [facility] Work Phone: 07-30-2021 16:13-0500 Body height 172.72 cm Oriana Nag S Mallapareddi Work Phone: [facility] Work Phone: 07-30-2021 16:13-0500 Body mass index (BMI) [Ratio] 26.98 kg/m2 Oriana Nag S Mallapareddi Work Phone: [facility] Work Phone: 07-30-2021 16:13-0500 Body surface area Derived from formula 1.94 m2 Orianasukhwinder Wiseman Mallapareddi Work Phone: [facility] Work Phone: 07-30-2021 16:13-0500 Body weight 80.48 kg Orianasukhwinder Wiseman Mallapareddi Work Phone: [facility] Work Phone: 07-30-2021 16:13-0500 Diastolic blood pressure 94 mm[Hg] Orianasukhwinder Warren S Mallapareddi Work Phone: [facility] Work Phone: 07-30-2021 16:13-0500 Heart rate 104 /min Oriana Warren S Mallapareddi Work Phone: [facility] Work Phone: 07-30-2021 16:13-0500 Systolic blood pressure 132 mm[Hg] Oriana Warren S Mallapareddi Work Phone: [facility] Work Phone: 07-29-2021 15:13-0500 Body height 172.72 cm Orianasukhwinder Warren S Mallapareddi Work Phone: [facility] [address] Work Phone: 07-29-2021 15:13-0500 Body mass index (BMI) [Ratio] 27.9 kg/m2 Orianasukhwinder Warren S Mallapareddi Work Phone: GB[facility]Mxdfftmhck-C[facility] [address] Work Phone: 07-29-2021 15:13-0500 Body surface area Derived from formula 1.97 m2 Oriana Nag S Mallapareddi Work Phone: DJ-Djjbsxravw-Fpmp [address] Work Phone: 07-29-2021 15:13-0500 Body weight 83.24 kg Orianasukhwinder Warren S Mallapareddi Work Phone: MP-Ychahnioeg-Eszi [address] Work Phone: 07-29-2021 15:13-0500 Diastolic blood pressure 98 mm[Hg] Oriana Nag S Mallapareddi Work Phone: JW-Lxjxlodtud-Qrss [address] Work Phone: 07-29-2021 15:13-0500 Heart rate 112 /min Oriana Nag S Mallapareddi Work Phone: YG-Ilyqtcfsnh-Bmca [address] Work Phone: 07-29-2021 15:13-0500 SaO2% (BldA) [Mass fraction] 92 % Oriana Nag S Mallapareddi Work Phone: GY-Vpzwnspzhi-Webd [address] Work Phone: 07-29-2021 15:13-0500 Systolic blood pressure 148 mm[Hg] Oriana Nag S Mallapareddi Work Phone: WJ-Drkxrwuywg-Asdg [address] Work Phone: 07-23-2021 16:09-0500 Body height 173.99 cm Oriana Nag S Mallapareddi Work Phone: [facility] Work Phone: 07-23-2021 16:09-0500 Body mass index (BMI) [Ratio] 26.71 kg/m2 Oriana Nag S Mallapareddi Work Phone: [facility] Work Phone: 07-23-2021 16:09-0500 Body surface area Derived from formula 1.96 m2 Oriana Nag S Mallapareddi Work Phone: [facility] Work Phone: 07-23-2021 16:09-0500 Body weight 80.85 kg Oriana Nag S Mallapareddi Work Phone: [facility] Work Phone: 07-23-2021 16:09-0500 Diastolic blood pressure 90 mm[Hg] Oriana Nag S Mallapareddi Work Phone: [facility] Work Phone: 07-23-2021 16:09-0500 Heart rate 104 /min Oriana Nag S Mallapareddi Work Phone: [facility] Work Phone: 07-23-2021 16:09-0500 Systolic blood pressure 126 mm[Hg] Oriana Nag S Mallapareddi Work Phone: [facility] Work Phone: 2021 08:39-0500 Body height 173.99 cm Oriana Nag S Mallapareddi Work Phone: [facility] Work Phone: 2021 08:39-0500 Body mass index (BMI) [Ratio] 26.59 kg/m2 Oriana Nag S Mallapareddi Work Phone: [facility] [facility] Work Phone: 2021 08:39-0500 Body surface area Derived from formula 1.95 m2 Oriana Nag S Mallapareddi Work Phone: [facility] Work Phone: 2021 08:39-0500 Body weight 80.48 kg Oriana Nag S Mallapareddi Work Phone: [facility] Work Phone: 2021 08:39-0500 Diastolic blood pressure 100 mm[Hg] Oriana Nag S Mallapareddi Work Phone: [facility] Work Phone: 2021 08:39-0500 Heart rate 92 /min Oriana Nag S Mallapareddi Work Phone: [facility] Work Phone: 2021 08:39-0500 Systolic blood pressure 134 mm[Hg] Oriana Nag S Mallapareddi Work Phone: [facility] Work Phone: 03-12-2021 16:53-0400 Body height 173.99 cm Oriana Nag S Mallapareddi Work Phone: [facility] Work Phone: 03-12-2021 16:53-0400 Body mass index (BMI) [Ratio] 25.79 kg/m2 Oriana Nag S Mallapareddi Work Phone: [facility] Work Phone: 03-12-2021 16:53-0400 Body surface area Derived from formula 1.93 m2 Oriana Nag S Mallapareddi Work Phone: [facility] Work Phone: 03-12-2021 16:53-0400 Body weight 78.07 kg Oriana Nag S Mallapareddi Work Phone: [facility] Work Phone: 03-12-2021 16:53-0400 Diastolic blood pressure 88 mm[Hg] Oriana Nag S Mallapareddi Work Phone: [facility] Work Phone: 03-12-2021 16:53-0400 Heart rate 88 /min Oriana Nag S Mallapareddi Work Phone: [facility] Work Phone: 03-12-2021 16:53-0400 Systolic blood pressure 122 mm[Hg] Oriana Nag S Mallapareddi Work Phone: [facility] Work Phone: 12-03-2020 14:12-0400 Body height 173.99 cm Oriana Nag S Mallapareddi Work Phone: [facility] Work Phone: 12-03-2020 14:12-0400 Body mass index (BMI) [Ratio] 24.03 kg/m2 Oriana Nag S Mallapareddi Work Phone: [facility] Work Phone: 12-03-2020 14:12-0400 Body surface area Derived from formula 1.87 m2 Oriana Nag S Mallapareddi Work Phone: [facility] Work Phone: 12-03-2020 14:12-0400 Body weight 72.74 kg Oriana Nag S Mallapareddi Work Phone: [facility] Work Phone: 12-03-2020 14:12-0400 Diastolic blood pressure 84 mm[Hg] Oriana Nag S Mallapareddi Work Phone: [facility] Work Phone: 12-03-2020 14:12-0400 Heart rate 104 /min Oriana Nag S Mallapareddi Work Phone: [facility] Work Phone: 12-03-2020 14:12-0400 Systolic blood pressure 112 mm[Hg] Oriana Nag S Mallapareddi Work Phone: [facility] Work Phone: 11-09-2020 16:13-0400 Body height 173.99 cm Oriana Nag S Mallapareddi Work Phone: [facility] Work Phone: 11-09-2020 16:13-0400 Body mass index (BMI) [Ratio] 24.18 kg/m2 Oriana Nag S Mallapareddi Work Phone: [facility] Work Phone: 11-09-2020 16:13-0400 Body surface area Derived from formula 1.88 m2 Oriana Nag S Mallapareddi Work Phone: [facility] Work Phone: 11-09-2020 16:13-0400 Body weight 73.2 kg Oriana Wiseman Mallapareddi Work Phone: [facility] Work Phone: 11-09-2020 16:13-0400 Diastolic blood pressure 82 mm[Hg] Oriana Wiseman [employer]lyapareddi Work Phone: [facility] Work Phone: 11-09-2020 16:13-0400 Heart rate 96 /min Oriana Wiseman [employer]lyap[employer]di Work Phone: [facility] Work Phone: 11-09-2020 16:13-0400 Systolic blood pressure 110 mm[Hg] Oriana Wiseman [employer]ly[employer]di Work Phone: [facility] Work Phone: 11-06-2020 10:00-0400 Body temperature 98.06 [degF] Oriana [facility] Other Phone (unformatted): [phone] 11-06-2020 10:00-0400 Diastolic blood pressure 85 mm[Hg] Oriana [facility] Other Phone (unformatted): [phone] 11-06-2020 10:00-0400 Heart rate 78 /min Oriana [facility] Other Phone (unformatted): [phone] 11-06-2020 10:00-0400 Respiratory rate 18 /min [facility] Other Phone (unformatted): [phone] 11-06-2020 10:00-0400 SaO2% (BldA) [Mass fraction] 94 % [facility] Other Phone (unformatted): [phone] 11-06-2020 10:00-0400 Systolic blood pressure 116 mm[Hg] [facility] Other Phone (unformatted): [phone] 10-26-2020 17:12-0400 Body height 173.99 cm Oriana Nag S Mallapareddi Work Phone: [facility] Work Phone: 10-26-2020 17:12-0400 Body mass index (BMI) [Ratio] 24.49 kg/m2 Oriana Nag S Mallapareddi Work Phone: [facility] Work Phone: 10-26-2020 17:12-0400 Body surface area Derived from formula 1.89 m2 Oriana Nag S Mallapareddi Work Phone: [facility] Work Phone: 10-26-2020 17:12-0400 Body weight 74.13 kg Oriana Nag S Mallapareddi Work Phone: [facility] Work Phone: 10-26-2020 17:12-0400 Diastolic blood pressure 90 mm[Hg] Oriana Nag S Mallapareddi Work Phone: [facility] Work Phone: 10-26-2020 17:12-0400 Heart rate 92 /min Oriana Nag S Mallapareddi Work Phone: [facility] Work Phone: 10-26-2020 17:12-0400 Systolic blood pressure 126 mm[Hg] Oriana Nag S Mallapareddi Work Phone: [facility] Work Phone: 08-03-2020 14:18-0500 BMI (Body Mass Index) 22.96 kg/m2 Jakub Styles [facility] 08-03-2020 14:18-0500 Body weight 72.58 kg Jakub Styles [facility] 08-03-2020 14:18-0500 Height 177.8 cm Jakub Styles [facility] 05-19-2020 10:49-0500 Body Temperature 98.4 [degF] Cleo Jolley [facility] 05-19-2020 10:49-0500 BP Diastolic 87 mm[Hg] [facility] 05-19-2020 10:49-0500 BP Systolic 126 mm[Hg] [facility] 05-19-2020 10:49-0500 Pulse (Heart Rate) 81 /min [facility] 05-19-2020 10:49-0500 Pulse Oximetry 96 % [facility] 05-19-2020 10:49-0500 Respiratory Rate 16 /min [facility] 05-17-2020 18:06-0500 BMI (Body Mass Index) 22.96 kg/m2 [facility] 05-17-2020 18:06-0500 Body weight 72.58 kg [facility] 05-17-2020 18:06-0500 Height 177.8 cm [facility] 04-14-2020 12:41-0500 BP Diastolic 82 mm[Hg] Macy Santana [facility] Comment on above: recheck [facility] 04-14-2020 12:41-0500 BP Systolic 125 mm[Hg] Macy Santana [facility] Comment on above: recheck [facility] 04-14-2020 12:38-0500 BMI (Body Mass Index) 23.68 kg/m2 Macy Santana [facility] 04-14-2020 12:38-0500 Body Temperature 97.59 [degF] Macy Santana [facility] 04-14-2020 12:38-0500 Body weight 74.84 kg Macy Santana [facility] 04-14-2020 12:38-0500 Height 177.8 cm Macy Santana [facility] 04-14-2020 12:38-0500 Pulse (Heart Rate) 98 /min Macy Santana [facility] 04-14-2020 12:38-0500 Pulse Oximetry 94 % Macy Santana [facility] 04-14-2020 12:38-0500 Respiratory Rate 16 /min Macy Santana [facility] 07-05-2019 15:02-0500 BMI (Body Mass Index) 24.41 kg/m2 Jamal Bee [facility] 07-05-2019 15:02-0500 Body weight 79.38 kg Jamal Bee [facility] 07-05-2019 15:02-0500 Height 180.3 cm Jamal Bee [facility] 03-31-2019 18:28-0500 Pulse Oximetry 97 % Jus Tourlas [facility] Work Phone: Comment on above: Source: 03-31-2019 18:14-0500 BMI (Body Mass Index) 25.63 kg/m2 Jus Franco [facility] Work Phone: 03-31-2019 18:14-0500 BSA (Body Surface Area) 1.92 m2 Jus Franco [facility] Work Phone: 03-31-2019 18:14-0500 Height 174 cm Jus Franco [facility] Work Phone: 03-31-2019 18:12-0500 Body Temperature 98 [degF] Jus Franco [facility] Work Phone: 03-31-2019 18:12-0500 Body weight 77.61 kg Jus Franco [facility] Work Phone: 03-31-2019 18:12-0500 BP Diastolic 88 mm[Hg] Jus Franco [facility] Work Phone: 03-31-2019 18:12-0500 BP Systolic 128 mm[Hg] Jus Franco [facility] Work Phone: 03-31-2019 18:12-0500 Pulse (Heart Rate) 80 /min Jus Franco [facility] Work Phone: Encounters Encounter Date Encounter Type Care Provider Facility Start: 11-28-[address] AUBRIE BIRMINGHAM MD Facility:A Start: 08-17-2024 End: 08-17-2024 ambulatory MACHELLE PATEL MD Facility:A Start: 08-17-2024 End: 08-17-[address] AUBRIE BIRMINGHAM MD [facility] Start: 08-03-2024 End: 08-03-[address] AUBRIE BIRMINGHAM MD [facility] Start: 08-03-2024 End: 08-03-[address] AUBRIE BIRMINGHAM MD Facility:A Start: 07-28-2024 ambulatory ASIM Mcgrath lity:[id number] Start: 07-28-2024 End: 07-28-2024 Subsequent hospital visit by physician Xr [facility] [place] Work Phone: [facility] MAS[facility]ER[facility] Start: 07-08-[address] AUBRIE BIRMINGHAM MD Facility:A Start: 07-08-2024 End: 07-08-2024 ambulatory NONE PHYSICIAN Facility:A Start: 07-08-2024 End: 07-08-[address] AUBRIE BIRMINGHAM MD [facility] Start: 06-22-2024 End: 06-22-2024 ambulatory RAMAKRISHNA KELSEY GABRIEL Facility:[id number] Start: 04-08-2024 ambulatory CHANTALE LOPEZMARIANNA Facility :[id number] Start: 04-08-2024 End: 04-08-2024 Subsequent hospital visit by physician [facility] Miguel Work Phone: [facility] SCAN [facility] MIGUEL Comment on above: Headache, unspecifie d [R51.9] Start: 03-10-2024 End: 03-10-2024 ambulatory AMARESHWAR PODUGU Facility:[id number] Start: 03-08-2024 End: 03-08-2024 ambulatory AMARESHWAR PODUGU Facility:[id number] Start: 03-07-2024 ambulatory GLO THORNE DO Facility:A Start: 02-17-2024 End: 02-22-2024 Evaluation and management of inpatient DR DONNA FAJARDO MD [facility] Start: 02-02-2024 ambulatory No Primary Car e Physician Facility:[facility] Start: 02-01-2024 ambulatory Earnestine Contreras Facility :[facility] Start: 01-31-2024 ambulatory Earnestine Contreras Facility :[facility] Start: 01-31-2024 End: 02-02-2024 Evaluation and management of inpatient Ramakrishna Bower Facility:[facility] Start: 05-21-2022 ambulatory [facility]NA [facility] Facility:[id number] Start: 04-29-2022 AUDIT Oriana Wiseman Mallapareddi Work Phone: -[facility] Work Phone: Start: 04-25-2022 Chart Update Oriana Briana S Mallapareddi Work Phone: -[facility] Work Phone: Start: 03-14-2022 Telephone encounter Oriana Briana S Mallapareddi Work Phone: -[facility] Work Phone: Start: 03-13-2022 ambulatory Arnold Sippey Facility:[id number] Start: 03-06-2022 Office consultation new/estab patient 60 min Oriana Briana S Mallapareddi Work Phone: -[facility] Work Phone: Start: 03-06-2022 ambulatory ARNOLD SIPPEY Facility:[id number] Start: 03-03-2022 ambulatory ARNOLD SIPPEY Facility:[id number] Start: 02-21-2022 AUDIT Oriana Wiseman Mallapareddi Work Phone: -[facility] Work Phone: Start: 02-20-2022 ambulatory ORIANABRIANA [facility] Facility:[id number] Start: 02-18-2022 ambulatory [facility] Facility:[id number] Start: 02-18-2022 Office outpatient vi sit 25 minutes Oriana Briana S Mallapareddi Work Phone: -[facility] Work Phone: Start: 01-27-2022 Chart Update Oriana Briana S Mallapareddi Work Phone: -[facility] Work Phone: Start: 01-24-2022 AUDIT Oriana Nag S Mallapareddi Work Phone: -[facility] Work Phone: Start: 01-20-2022 Office outpatient vi sit 25 minutes Oriana Nag S Mallapareddi Work Phone: [facility] Work Phone: Start: 01-20-2022 ambulatory ORIANA NAG [facility] Facility:[id number] Start: 12-27-2021 ambulatory ORIANA BRIANA [facility] Facility:[id number] Start: 12-17-2021 ambulatory ORIANA NAG [facility] Facility:[id number] Start: 12-03-2021 ambulatory ORIANA NAG [facility] Facility:[id number] Start: 11-28-2021 AUDIT Oriana Nag S Mallapareddi Work Phone: [facility] Work Phone: Start: 11-19-2021 ambulatory ORIANA BRIANA [facility] Facility:[id number] Start: 11-19-2021 Office outpatient vi sit 15 minutes Oriana Nag S Mallapareddi Work Phone: [facility] Work Phone: Start: 09-10-2021 ambulatory ORIANA BRIANA [facility] Facility:[id number] Start: 09-03-2021 ambulatory ORIANA BRIANA [facility] Facility:[id number] Start: 09-03-2021 Office outpatient vi sit 15 minutes Oriana Nag S Mallapareddi Work Phone: [facility] Work Phone: Start: 09-03-2021 Patient encounter procedure Ar un Nag S Mallapareddi Work Phone: [facility] Work Phone: Start: 08-13-2021 ambulatory ORIANA BRIANA [facility] Facility:[id number] Start: 08-13-2021 Office outpatient vi sit 15 minutes Oriana Nag S Mallapareddi Work Phone: [facility] Work Phone: Start: 08-13-2021 Patient encounter procedure Ar sukhwinder Wiseman Mallapareddi Work Phone: [facility] Work Phone: Start: 07-30-2021 FUVHOSP, Provider: Oriana Yousif, Status: Pen, Time: 4:00 PM Oriana Warren S Mallapareddi Work Phone: [address] Work Phone: Start: 07-30-2021 Office outpatient vi sit 15 minutes Oriana Wiseman Mallapareddi Work Phone: [facility] Work Phone: Start: 07-30-2021 Patient encounter procedure Hal Wiseman Mallapareddi Work Phone: [facility] Work Phone: Start: 07-30-2021 ambulatory ORIANA NAG [facility] Facility:[id number] Start: 07-29-2021 ambulatory ORIANA NAG [facility] Facility:[id number] Start: 07-29-2021 NPV, Provider: Mery Farris, Status: Pen, Time: 3:00 PM Oriana Wiseman Mallapareddi Work Phone: [facility] Work Phone: Start: 07-27-2021 End: 07-27-2021 Emergency department patient visit [facility] Start: 07-24-2021 VNDVTUNI, Provider: [facility], Status: Pen, Time: 8:00 AM Oriana Warren S Mallapareddi Work Phone: [facility] Work Phone: Start: 07-24-2021 ambulatory ORIANA-BRIANA [facility] Facility:[id number] Start: 07-23-2021 Office outpatient vi sit 15 minutes Oriana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 have with your health care provider. Document Released: 06/13/2011 Document Revised: 03/11/2018 Document Reviewed: 02/02/2017 [employer] Patient Education 2020 [employer] 08/17/2024 11:49:28 1- SDS General Discharge Guidelines (02/06/2023)(CUSTOM) [facility] SAME DAY SURGERY DISCHARGE INSTRUCTIONS PLEASE FOLLOW THE INSTRUCTIONS BELOW MARKED WITH AN X: __X_Regular Diet: Start with clear liquids, then soup and crackers. Gradually add other foods unless otherwise instructed by your surgeon __X_Drink extra fluids ACTIVTY: __X_Since you have had anesthetic, it would be advisable not to drive, drink alcohol, or make majordecisions over the next 24 hours. You may require more rest tonight and tomorrow __X_Do not drive vehicle while taking narcotics and as directed by your Surgeon ____Restrict activity as follows: ____Do not have sexual intercourse. Nothing in the vagina-No tampons or Douching ____No heavy lifting, pushing, or straining ____Elevate operative limb ____Ice as directed __X_Follow all written and verbal instructions given to you by your Doctor ____Other: BATHING/SHOWERING ____Sponge bathe until office visit. ____Sitting in tub of warm water may relieve discomfort ____May tub bathe ____May shower in 24-48 hours with clean linen unless otherwise instructed by your Doctor DRESSING: ____Keep operative area clean and dry ____Check the operative area for signs of bleeding. Apply pressure to the bleeding site if necessary. ____Change drip pad as needed ____Wear scrotal support for comfort WATCH FOR SIGNS OF INFECTION: (Usually appears 36-48 hours after surgery) Increased temperature (101 degrees Fahrenheit or higher) Redness or swelling Increased pain Foul odor or drainage If you have any questions, please call your doctor at the number listed on your follow-up instructions. Follow Up Care 07/01/2024 15:43:23 With:AUBRIE BIRMINGHAM MD Address: [address] [facility] [place] [address]- [phone] When: Unknown Comments:Follow-up as scheduledfollowup in 2-3 months [facility] 03-26-2025 Anesthesiology Consult note Patient: NARCISO GLEZ Age: 59 years Sex: Male : 1965 Associated Diagnoses: None Author: CHAUNCEY LARSON MD Postoperative Information Post Operative Info: Post op day: Post Anesthesia Care Unit. Patient location: PACU. Assessment Postanesthesia assessment Vitals: Vital signs from flowsheet : Vital Signs 08/17/2024 11:35 EDT Temperature Temporal Artery 35.4 DegC Peripheral Pulse Rate 73 bpm Respiratory Rate 18 br/min Systolic Blood Pressure Non-Invasive 131 mmHg Diastolic Blood Pressure Non-Invasive 90 mmHg HI 08/17/2024 11:14 EDT Heart Rate Monitored 76 bpm 08/17/2024 11:14 EDT Respiratory Rate 18 br/min Systolic Blood Pressure Non-Invasive 107 mmHg Diastolic Blood Pressure Non-Invasive 79 mmHg Mean Arterial Pressure (NBP) 89 mmHg 08/17/2024 11:00 EDT Temperature Temporal Artery 36.4 DegC Heart Rate Monitored 78 bpm Respiratory Rate 18 br/min Systolic Blood Pressure Non-Invasive 127 mmHg Diastolic Blood Pressure Non-Invasive 95 mmHg HI Mean Arterial Pressure (NBP) 107 mmHg 08/17/2024 10:50 EDT Heart Rate Monitored 85 bpm bpm Respiratory Rate - Anes 18 br/min br/min Systolic Blood Pressure Non-Invasive 103 mmHg mmHg Diastolic Blood Pressure Non-Invasive 72 mmHg mmHg 08/17/2024 10:47 EDT Systolic Blood Pressure Non-Invasive 96 mmHg mmHg Diastolic Blood Pressure Non-Invasive 70 mmHg mmHg 08/17/2024 10:45 EDT Heart Rate Monitored 90 bpm bpm Respiratory Rate - Anes 12 br/min br/min 08/17/2024 10:44 EDT Systolic Blood Pressure Non-Invasive 88 mmHg mmHg Diastolic Blood Pressure Non-Invasive 64 mmHg mmHg 08/17/2024 10:41 EDT Systolic Blood Pressure Non-Invasive 95 mmHg mmHg Diastolic Blood Pressure Non-Invasive 69 mmHg mmHg 08/17/2024 10:40 EDT Heart Rate Monitored 88 bpm bpm Respiratory Rate - Anes 14 br/min br/min 08/17/2024 10:38 EDT Systolic Blood Pressure Non-Invasive 91 mmHg mmHg Diastolic Blood Pressure Non-Invasive 68 mmHg mmHg 08/17/2024 10:35 EDT Heart Rate Monitored 57 bpm bpm Respiratory Rate - Anes 14 br/min br/min Systolic Blood Pressure Non-Invasive 96 mmHg mmHg Diastolic Blood Pressure Non-Invasive 74 mmHg mmHg 08/17/2024 10:32 EDT Systolic Blood Pressure Non-Invasive 99 mmHg mmHg Diastolic Blood Pressure Non-Invasive 72 mmHg mmHg 08/17/2024 10:30 EDT Heart Rate Monitored 71 bpm bpm Respiratory Rate - Anes 39 br/min br/min 08/17/2024 10:29 EDT Systolic Blood Pressure Non-Invasive 113 mmHg mmHg Diastolic Blood Pressure Non-Invasive 74 mmHg mmHg 08/17/2024 10:26 EDT Systolic Blood Pressure Non-Invasive 110 mmHg mmHg Diastolic Blood Pressure Non-Invasive 79 mmHg mmHg 08/17/2024 10:25 EDT Respiratory Rate - Anes 0 br/min br/min 08/17/2024 8:45 EDT Temperature Temporal Artery 35.9 DegC Peripheral Pulse Rate 74 bpm Respiratory Rate 20 br/min Systolic Blood Pressure Non-Invasive 110 mmHg Diastolic Blood Pressure Non-Invasive 76 mmHg . Mental status: at preoperative baseline. Respiratory function: respirations are non-labored, stable. Respiratory support: none. CV function: stable. Cardiovascular support: none. Pain: satisfactory. Nausea status: satisfactory. Postoperative hydration status: within normal limits. Notes: Patient is sufficiently recovered from anesthesia to participate in the evaluation. No follow-up care needed. No complications post-anesthesia.. Digitally Signed by CHAUNCEY LARSON MD on 08/17/2024 12:00 PM [id number] Summary of episode note Discharge Instructions Thank you for allowing [facility] to assist you with your healthcare needs. The following is importantdischarge information regarding your hospital visit. What to do next Follow Up Appointments Follow Up with AUBRIE BIRMINGHAM MD Where:[address] [facility] [place] [address]- [phone] Additional Information: Follow-up as scheduled followup in 2-3 months The Following Activity and Diet Have Been Ordered for You No qualifying data available. No qualifying data available. The Following Equipment Has Been Ordered for You No qualifying data available. The Following Treatments Have Been Ordered for You Discharge Labs No qualifying data available. Discharge Radiology No qualifying data available. Other Therapies No qualifying data available. Post Acute Orders No qualifying data available. Someone Will Contact You Regarding These Home Health Referrals No home referrals have been ordered for you. No one will call you. Allergies NKA Medications Please ask your primary doctor or pharmacist before taking any other medication not listed, including over the counter drugs, herbal medications, vitamins and or supplements as they may interact withyour home medications. What How Much When Why Instructions Last Dose New omeprazole (omeprazole 40 mg oral delayed releasecapsule) 1 cap by mouth Once a day Pickup at [facility]/pharmacy #[id number] Unchanged albuterol (albuterol 2.5 mg/ 3 mL (0.083%) inhalation solution) 3 Milliliter Nebulized inhalation Every 6 hours as needed for Shortness of breath or wheezing Duration: 30 Days Unchanged amitriptyline (amitriptyline 10 mg oral tablet) 1 tab(s) by mouth Three (3) times a day Unchanged budesonide (budesonide 0.5 mg/ 2 mL inhalation suspension) 2 Milliliter by inhalation Two (2) times a day Unchanged DULoxetine (DULoxetine 20 mg oral delayed release capsule) 1 cap by mouth Two (2) times a day Unchanged famotidine (famotidine 40 mg oral tablet) 1 tab(s) by mouth Daily at bedtime Unchanged fluticasone (fluticasone 44 mcg/ inh inhalation aerosol) 1 puff(s) by inhalation Every day as needed for Shortness of breath or wheezing Unchanged furosemide (Lasix 40 mg oral tablet) 1 tab(s) by mouth Once a day Unchanged gabapentin (gabapentin 300 mg oral capsule) 1 cap by mouth Two (2) times a day Neuropathy Unchanged pregabalin (pregabalin 50 mg oral capsule) 1 cap by mouth Two (2) times a day Unchanged propranolol (propranolol 10 mg oral tablet) 1 tab(s) by mouth Once a day Unchanged spironolactone (Aldactone 50 mg oral tablet) 1 tab(s) by mouth Two (2) times a day Unchanged SUMAtriptan (SUMAtriptan 25 mg oral tablet) 1 tab(s) by mouth Once a day as needed for as needed for migraine headache 1 tab onset , may repeat in 2 hrs. MAX 8 tab(s)/ 24hrs Pharmacy Information [facility]/pharmacy #[id number]: [address] [place] [phone] Please take this list to your next doctor s visit. Bring all medications you take, including over the counter medications, herbals and other supplements with you to your doctor s visit. Patients and families are reminded to discard old lists and to update any records with all medication providers or retail pharmacies. Education Materials Colonoscopy, Adult, Care After This sheet gives you information about how to care for yourself after your procedure. Your doctor may also give you more specific instructions. If you have problems or questions, call your doctor. What can I expect after the procedure? After the procedure, it is common to have: A small amount of blood in your poop for 24 hours. Some gas. Mild cramping or bloating in your belly. Follow these instructions at home: General instructions For the first 24 hours after the procedure: ? Do not drive or use machinery. ? Do not sign important documents. ? Do not drink alcohol. ? Do your daily activities more slowly than normal. ? Eat foods that are soft and easy to digest. Take wckq-qry-ilrkboo or prescription medicines only as told by your doctor. To help cramping and bloating: Try walking around. Put heat on your belly (abdomen) as told by your doctor. Use a heat source that your doctor recommends, such as a moist heat pack or a heating pad. ? Put a towel between your skin and the heat source. ? Leave the heat on for 20 30 minutes. ? Remove the heat if your skin turns bright red. This is especially important if you cannot feel pain, heat, or cold. You can get burned. Eating and drinking Drink enough fluid to keep your pee (urine) clear or pale yellow. Return to your normal diet as told by your doctor. Avoid heavy or fried foods that are hard to digest. Avoid drinking alcohol for as long as told by your doctor. Contact a doctor if: You have blood in your poop (stool) 2 3 days after the procedure. Get help right away if: You have more than a small amount of blood in your poop. You see large clumps of tissue (blood clots) in your poop. Your belly is swollen. You feel sick to your stomach (nauseous). You throw up (vomit). You have a fever. You have belly pain that gets worse, and medicine does not help your pain. Summary After the procedure, it is common to have a small amount of blood in your poop. You may also have mild cramping and bloating in your belly. For the first 24 hours after the procedure, do not drive or use machinery, do not sign important documents, and do not drink alcohol. Get help right away if you have a lot of blood in your poop, feel sick to your stomach, have a fever, or have more belly pain. This information is not intended to replace advice given to you by your health care provider. Make sure you discuss any questions you have with your health care provider. Document Released: 06/13/2011 Document Revised: 03/11/2018 Document Reviewed: 02/02/2017 [employer] Patient Education 2020 [employer] ZEFERINO SAME DAY SURGERY DISCHARGE INSTRUCTIONS PLEASE FOLLOW THE INSTRUCTIONS BELOW MARKED WITH AN X: __X_Regular Diet: Start with clear liquids, then soup and crackers. Gradually add other foods unless otherwise instructed by your surgeon __X_Drink extra fluids ACTIVTY: __X_Since you have had anesthetic, it would be advisable not to drive, drink alcohol, or make majordecisions over the next 24 hours. You may require more rest tonight and tomorrow __X_Do not drive vehicle while taking narcotics and as directed by your Surgeon ____Restrict activity as follows: ____Do not have sexual intercourse. Nothing in the vagina-No tampons or Douching ____No heavy lifting, pushing, or straining ____Elevate operative limb ____Ice as directed __X_Follow all written and verbal instructions given to you by your Doctor ____Other: BATHING/SHOWERING ____Sponge bathe until office visit. ____Sitting in tub of warm water may relieve discomfort ____May tub bathe ____May shower in 24-48 hours with clean linen unless otherwise instructed by your Doctor DRESSING: ____Keep operative area clean and dry ____Check the operative area for signs of bleeding. Apply pressure to the bleeding site if necessary. ____Change drip pad as needed ____Wear scrotal support for comfort WATCH FOR SIGNS OF INFECTION: (Usually appears 36-48 hours after surgery) Increased temperature (101 degrees Fahrenheit or higher) Redness or swelling Increased pain Foul odor or drainage If you have any questions, please call your doctor at the number listed on your follow-up instructions. Additional Information VACCINATE! IT SAVES LIVES! Members of the community who have not yet received the COVID-19 vaccine and would like to receive it can visit one of [facility] vaccine clinics. There are many vaccine clinic locations within the [facility]. For locations and available times, please visit https://[email or web address].[place].gov/. It is important to note that some COVID mobile vaccine clinics are held outdoors and may be canceled in rainy or stormy conditions. To learn more about pediatric vaccinations (ages 5-11), we invite you to visit the [facility] webpage. [email or web address] learn more about the COVID-19 vaccine, we invite you to visit the CDC website for a list of frequently asked questions.https://www.cdc.gov/coronavirus/2019-ncov/vaccines/faq.html [facility] Patient Portal Access Instructions: Stay connected with your healthcare team and access your personal medical information anytime with the [facility] Patient Portal. Please follow the directions below to create your [facility] account: 1.Access the email account you provided upon registration to the hospital/physician office.2.Look for an invitation email from [facility].3.Open the email and access the invitation link: AcceptInvitation to [facility].4.Fill in the required glez to create your account. To access your account, visit [facility] [employer]. Click the blue button labeled Access Patient Portal and then log in with the username and password that you created in the steps above. You will be able to view your test results, lab results, a summary of your visits, upcoming appointments and more. There is also a convenient messaging option where you can send secure messages to your p rovider. In addition, you will have the ability to download any documents or summaries to your computer and/or send the information securely to a physician. Remember that your healthcare information is confidential, so carefully consider who you will allowto register on the [facility] Patient Portal for access to your information. You can also access the [facility] on the [facility] enrique. Simply click on Patient Portal and then log into your account. If you would like to receive a full copy of your medical records, please contact the [facility] Medical Records Department by calling [phone], Thursday through Thursday between 8 a.m. and 4:30 p.m. HOW TO SAFELY DISPOSE OF PRESCRIPTION MEDICATIONS Please use one of the following methods to safely dispose of your unused medications. 1.Use a drug disposal kit: the drug disposal pouch allows you to safely discard your old and unuseddrugs. Ask your nurse to give you one when you are discharged.2.Visit a local take-back location: Many local pharmacies and police departments have programs that collect old and unwanted prescriptiondrugs. Call your local pharmacy or go to http://Groupon/9Q4Vg3d to find one close to you.3.Make use of household items: Use cat litter or old coffee grounds to dispose medications if other options arenot available. Mix your drugs with these household products, seal them in an airtight container andthrow it into the garbage. Call [facility]: [phone] to be sure your drugs can be disposed of in this way. Some medicines may require a different approach.4.Never flush your medications down the toilet. IF YOU HAVE BEEN PRESCRIBED AN OPIOID FOR PAIN If you have been prescribed an opioid (such as hydrocodone, oxycodone or morphine), it is critical to understand the possible side effects and risks of opioid pain medications. Even when taken as directed, opioids can have several side effects including: Tolerance, meaning you might need to take more of a medication for the same pain relief. Nausea, vomiting and/or constipation. Sleepiness, dizziness, dry mouth, confusion, depression or itching. Physical dependence, meaning you have withdrawal symptoms when a medication is stopped, can develop within a few days. KNOW YOUR RESPONSIBILITIES It is important to know exactly how much and how often to take the opioid pain medications you are prescribed. Never take opioids in higher amounts or more often than prescribed. Do not combine opioids with alcohol or other drugs that cause drowsiness, such as benzodiazepines, also known as benzos, including diazepam and alprazolam, muscle relaxants or sleep aids. Never sell or share prescription opioids. This is illegal. Store opioids in a secure place and out of reach of others (including children, family, friends and visitors). The last page of this document has been signed and retained as a CHART COPY. Signatures Patient Education Materials Colonoscopy, Adult, Care After, Tkuj-fr-Ybjp 1- SDS General Discharge Guidelines (02/06/2023)(CUSTOM) Medication Leaflets My discharge plan and instructions have been reviewed and explained to me and I,NARCISO GLEZ understand my current condition and have read and understand these discharge instructions. I have received a written copy of the plan/instructions. If I have questions, I am aware that I should contact my doctor. 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 Hiatal hernia. Portal hypertensive gastropathy. Erosive gastritis. Colon polyps. Upper endoscopy with biopsy. Colonoscopy with snare polypectomy. Procedures: History of Present Illness: Pls refer to HPI. Hospital Course: Pls refer to the procedure note. Discharge Medications: Same as home meds. Discharge Instructions: Await path results. Follow up Appointment in 2 - 3 months. Repeat colonoscopy in 1 year Digitally Signed by AUBRIE BIRMINGHAM MD on 08/17/2024 11:05 [facility]03-26-2025 Note Date of Service Procedure: Upper endoscopy and colonoscopy Indication: Anemia Provider: Bogdan Birmingham MD Patient profile: Patient with history of liver cirrhosis. History of alcohol abuse. Here for an upper endoscopy and colonoscopy for anemia. Medicines: Monitored anesthesia care Complications: No immediate complications. ASA grade: 3 EGD Procedure: Prior to the procedure, history and physical was performed and patient medications allergies and sensitivities were reviewed. The risks and benefits of the procedure and the sedation options and risks were discussed with the patient. All questions were answered and informed consent was obtained. Patient identification and proposed procedure were verified prior to the procedure by the physician and the nurse. After obtaining informed consent the endoscopy was passed under direct vision. Throughout the procedure the patient's blood pressure, pulse and oxygen saturations were monitored continuously. The procedure was accomplished without difficulty. The patient tolerated the procedure well. The endoscope was introduced through the mouth, and advanced to the second part of the duodenum. Upon discharge from the endoscopy area, the patient will be recovered per established procedures and protocols. Colonoscopy Procedure: Prior to the procedure, history and physical was performed and patient medications allergies and sensitivities were reviewed. The risks and benefits of the procedure and the sedation options and risks were discussed with the patient. All questions were answered and informed consent was obtained. Patient identification and proposed procedure were verified prior to the procedure by the physician and the nurse. After informed consent was obtained with the benefits, risks and alternatives to the colonoscopy explained including the risk of perforation, the patient agreed to proceed with the colonoscopy. Priorto the procedure, a digital rectal exam was performed. The procedure was performed with the patientin the left lateral decubitus position. The scope was passed under direct vision. Throughout the pro cedure the patient's blood pressure, pulse and oxygen saturations were monitored continuously. The procedure was accomplished without difficulty. The patient tolerated the procedure well. The colonoscope was introduced through the anus and advanced to the cecum, identified by appendiceal orifice and ileocecal valve. Upon discharge from the endoscopy area, the patient will be recovered per established procedures and protocols. Quality of bowel prep: Adequate. Cecum, descending colon and sigmoid colon were not clearly visualized. Withdrawal time: More than 6 minutes. EGD Findings: Esophagus: Negative for esophageal varices. Stomach: Negative for gastric varices. Hiatal hernia measuring around 4 cm confirmed on both directand retroflexed view. Few erosions, congestion and erythema consistent with mild to moderate erosive gastritis. Biopsies were obtained for the evaluation of H. pylori. Additional changes in the body of the stomach could be consistent with portal hypertensive gastropathy. Duodenum: Within normal limits Colonoscopy findings: Digital Rectal Exam: Within normal limits Colon: An 8 mm polyp in the hepatic flexure s/p polypectomy using cold snare technique. The polyp was completely removed and retrieved A 5 mm polyp in the transverse colon s/p polypectomy using cold snare technique. The polyp was completely removed and retrieved. A 5 mm polyp in the descending colon s/p polypectomy using cold snare technique. The polyp was completely removed and retrieved. Terminal Ileum: Not examined Impression: Hiatal hernia. Portal hypertensive gastropathy. Erosive gastritis s/p biopsies for H. pylori. Negative for esophageal and gastric varices. Colon polyps as outlined above. Inadequate bowel prep Recommendations: Await pathology results. Repeat colonoscopy for surveillance in 1 year with extended prep protocol. Okay to discharge home. Findings and recommendations were attempted to be reviewed with patient Sister Gayatri at [phone]. Left a VM to call us back. Digitally Signed by AUBRIE BIRMINGHAM MD on 08/17/2024 11:04 AM [facility] [id number] History and physical note Date of Service 08/17/2024 Chief Complaint Anemia History of liver cirrhosis and secondary to alcohol abuse. History of Present Illness Patient is here for anemia. He is here for upper endoscopy and colonoscopy. Recent office visit from June 2024 was reviewed. No prior endoscopy or colonoscopy. Recent blood counts have improved. Hemoglobin is around 13. Platelet count is 412. INR is 0.9. He is not on any anticoagulation therapy. BMI is 23. He has history of liver cirrhosis. Review of Systems Pertinent positives and negatives are included in the HPI Physical Exam Vitals and Measurements T: 35.9 C (Temporal Artery) HR: 74 RR: 20 BP: 110/76 SpO2: 95% HT: 177.8 cm WT: 75.7 kg Weight Dosing Weight: 75.7 kg (08/17/24) Physical exam: Gen/Neuro: AAO X 3 Skin: normal HEENT: PERRL, EOMI. Neck: Supple. Cardiac: RRR, S1/S2 present. Lungs: CTAB Abd: +BS, Soft, NT/ND. No HSM or ascites Ext: edema - Lab Results No 36 Hour Lab Data Assessment/Plan Problem list: Anemia No prior endoscopy or colonoscopy History of liver cirrhosis secondary to alcohol use Plan: Proceed with upper endoscopy and colonoscopy. Patient understands what the procedure involves including the benefits and any risks. Patient understands alternatives to the proposed procedure. Risks including (but not limited to) bleeding, tearing of the lining (perforation), rupture of adjacent organs, problems with heart and lung function, infection, and medication reactions. A small percentage of complications may require surgery, hospitalization, repeat endoscopic procedure, and/or transfusion. A small percentage of polyps and other tumors may not be seen. In addition, patient consents to perform therapeutic interventions if needed during these procedures which includes (but not limited to) possible biopsy, polypectomy, dilation, banding and/or cautery. Procedure/Surgical History Colonoscopy History of thrombectomy Open reduction of fracture of femur with internal fixation Shoulder Medications Home Medications (12) Active albuterol 2.5 mg/3 mL (0.083%) inhalation solution 2.5 mg = 3 mL, PRN, Nebulized, q6hr Aldactone 50 mg oral tablet 50 mg = 1 tab(s), Oral, BID amitriptyline 10 mg oral tablet 10 mg = 1 tab(s), Oral, TID budesonide 0.5 mg/2 mL inhalation suspension 0.5 mg = 2 mL, Inhalation, BIDRT DULoxetine 20 mg oral delayed release capsule 20 mg = 1 cap(s), Oral, BID famotidine 40 mg oral tablet 40 mg = 1 tab(s), Oral, qHS fluticasone 44 mcg/inh inhalation aerosol 1 puff(s), PRN, Inhalation, Daily gabapentin 300 mg oral capsule 300 mg = 1 cap(s), Oral, BID Lasix 40 mg oral tablet 40 mg = 1 tab(s), Oral, qDay pregabalin 50 mg oral capsule 50 mg = 1 cap(s), Oral, BID propranolol 10 mg oral tablet 10 mg = 1 tab(s), Oral, qDay SUMAtriptan 25 mg oral tablet 25 mg = 1 tab(s), PRN, Oral, qDay Allergies NKA Social History Alcohol Use: Past. Type: Beer. Frequency: Daily., 08/03/2024 Home/Environment Domestic Concerns: Denies., 08/03/2024 Nutrition/Health Type of diet: Regular. Appetite Good. Eating Difficulties None., 08/03/2024 Substance Abuse Use: DENIES., 08/03/2024 Tobacco Nicotine Use: 5-9 cigarettes (between 1/4 to 1/2 pack)/day in last 30 days. Type: Cigarettes. Tobacco use per day: 7. Number of years: 40. Started at age: 14 Years. Previous treatment: None. Ready tochange: No., 02/17/2024 Family History Congestive heart failure: Mother. Health Status Family Member(s) Family Member(s) Relationship: Mother, Age: Unknown Immunizations No qualifying data available. Code Status No qualifying data available. Digitally Signed by AUBRIE BIRMINGHAM MD on 08/17/2024 10:18 AM [facility] [id number] Anesthesiology Consult note Patient: NARCISO GLEZ Age: 59 years Sex: Male : 1965 Associated Diagnoses: None Author: MACHELLE PATEL MD Preoperative Information Time of last food or liquid consumption: 08/17/2024 00:00:00 Anesthesia history Patient's history: negative. Family's history: negative. History of Present Illness The patient presents for preanesthesia evaluation with Patient is a 59-year-old gentleman who presents for semielective upper endoscopy to assess for a possible source of anemia. He does have a history of alcoholism, cirrhosis, COPD, anemia, and ascites. He states he is active with limitations, however, denies cardiopulmonary limitations or symptoms suggestive for ischemia. EKG is sinus rhythm without changes just for ischemia. Echocardiogram done late last year revealed normal LV function withelevated right-sided pressures, no regional wall motion abnormalities. He states his breathing is at baseline without recent exacerbations of his COPD or upper respiratory infections. He denies any sy mptoms of reflux on the day of surgery, has no allergies to medications, and no prior anesthetic issues. I reviewed his chart, studies, labs, consultations. I spoke with him at length about the anesthetic plan and risks, he verbalized understanding and signed consent to proceed with deep sedation for planned procedure, possible general anesthesia.. Health Status Allergies: Allergic Reactions (Selected) NKA, Allergies (1) ActiveSeverityReaction NKANone Documented Current medications: (Selected) Prescriptions Prescribed Aldactone 50 mg oral tablet: 50 mg, 1 tab(s), Oral, BID, 60 tab(s), 0 Refill(s) Lasix 40 mg oral tablet: 40 mg, 1 tab(s), Oral, qDay, 30 tab(s), 0 Refill(s) albuterol 2.5 mg/3 mL (0.083%) inhalation solution: 2.5 mg, 3 mL, Nebulized, q6hr, for 30 day(s), PRN: Shortness of breath or wheezing, 30 EA, 0 Refill(s) budesonide 0.5 mg/2 mL inhalation suspension: 0.5 mg, 2 mL, Inhalation, BIDRT, 120 mL, 0 Refill(s) gabapentin 300 mg oral capsule: 300 mg, 1 cap(s), Oral, BID, 60 cap(s), 0 Refill(s) Documented Medications Documented DULoxetine 20 mg oral delayed release capsule: 20 mg, 1 cap(s), Oral, BID, 180 cap(s), 0 Refill(s) SUMAtriptan 25 mg oral tablet: 25 mg, 1 tab(s), Oral, qDay, 1 tab onset , may repeat in 2 hrs. MAX 8 tab(s)/24hrs, PRN: as needed for migraine headache, 18 tab(s), 0 Refill(s) amitriptyline 10 mg oral tablet: 10 mg, 1 tab(s), Oral, TID, 90 tab(s), 0 Refill(s) famotidine 40 mg oral tablet: 40 mg, 1 tab(s), Oral, qHS, 0 Refill(s) fluticasone 44 mcg/inh inhalation aerosol: 1 puff(s), Inhalation, Daily, PRN: Shortness of breath or wheezing, 0 Refill(s) pregabalin 50 mg oral capsule: 50 mg, 1 cap(s), Oral, BID, 0 Refill(s) propranolol 10 mg oral tablet: 10 mg, 1 tab(s), Oral, qDay, 180 tab(s), 0 Refill(s), No qualifying data available Problem list: Active Problems (10) Alcoholism Anemia Ascites Cirrhosis of liver COPD (chronic obstructive pulmonary disease) Full dentures Hematochezia Hypoalbuminemia Portal hypertension Tobacco use Histories Past Medical History: No active or resolved past medical history items have been selected or recorded. Family History: Congestive heart failure Mother () Procedure history: Shoulder ([id number]). Comments: 07/08/2024 9:27 Dario Alanis equipment monitor phototypesetting Colonoscopy ([id number]). Open reduction of fracture of femur with internal fixation ([id number]). Comments: 08/03/2024 10:19 Jolynn Jerome RN DAKSHA PLACED, POST OP DVT History of thrombectomy ([id number]). Comments: 08/03/2024 10:35 Jolynn Jerome RN Per patient, he had a floating blood clot which required surgical intervention via groin. post opbleeding artery busted open per patient but didn't require another surgical intervention Social History: Social & Psychosocial Habits Alcohol 08/17/2024 Use: Past Type: Beer Frequency: Daily Substance Abuse 08/17/2024 Use: DENIES Tobacco 08/17/2024 Tobacco Use: 5-9 cigarettes (between 1 Type: Cigarettes Tobacco use per day: 7 Number of years: 40 Started at age: 14 Years Previous treatment: None Ready to change: No Home/Environment 08/17/2024 Domestic Concerns Denies Nutrition/Health 08/17/2024 Type of diet: Regular Appetite Good Eating Difficulties None Physical Examination Vital Signs 08/17/2024 8:45 EDT Temperature Temporal Artery 35.9 DegC Peripheral Pulse Rate 74 bpm Respiratory Rate 20 br/min Systolic Blood Pressure Non-Invasive 110 mmHg Diastolic Blood Pressure Non-Invasive 76 mmHg Vital Signs (last 24 hrs) Last Charted Temp Aacgsfvx46.9 DegC (AUG 17 08:45) NLF694 mmHg (AUG 17 08:45) DBP76 mmHg (AUG 17 08:45) Measurements from flowsheet : Measurements 08/17/2024 8:59 EDT Height 177.8 cm Admission Weight 75.7 kg Lind Body Weight 73.00 kg Type of Scale Used Bed scale Pain assessment: Pain Assessment 08/17/2024 8:59 EDT Primary Pain Intensity 0 Pain Scale Type 0-10 Pain scale . General: Alert and oriented, No acute distress. Airway: Normal mouth. Mallampati classification: II (soft palate, fauces, uvula visible). Head: Normocephalic, Atraumatic. Dentition Evaluation: Missing teeth. Neck: Supple, Non-tender. Respiratory: Lungs are clear to auscultation, Respirations are non-labored. Cardiovascular: Normal rate, Regular rhythm. Heart Sounds: Normal. Neurologic: Alert, Oriented. Review / Management Results review: No qualifying data available , Lab results 08/17/2024 9:08 EDT Hand Left 08/17/2024 20 gauge Peripheral IV Activity: Insert new site Peripheral IV Dressing Condition: Clean, Dry, Intact Peripheral IV Dressing Activity: Applied, Transparent dressing Peripheral IV Line Status/Patency: 3ml normal saline flush Peripheral IV Line Care: Secured with tape Peripheral IV Site Condition: No complications Peripheral IV Equipment: PRN Adaptor Peripheral IV Number of Attempts: 1 08/17/2024 9:03 EDT Individuals Taught Patient Learning Readiness Willing to learn Barriers to Learning None evident Teaching Method Explanation, Printed materials Preferred Spoken Language Cape Verdean Preferred Written Language [place]an Surgical Site Infection Prevention SSI FAQ provided Infection Prevention Teaching Evaluation Verbalizes/Nonverbally indicates understanding Pre Procedure/Surgery Education Appropriate expectations, Bring glasses, hearing aids, contact lenscase, Date/Time of procedure/surgery, Hospital gown requirement worn to OR, Leave valuables, jewelry, wedding ring at home, Meds to take or hold, NPO, Responsible armor 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 vehicle driver for discharge Procedure/Surgical Teaching Evaluation Verbalizes/Nonverbally indicates understanding Safety Measures Education Fall prevention, Call light use, Ambulation device use, Non-slip footwearuse Safety Teaching Evaluation Verbalizes/Nonverbally indicates understanding 08/17/2024 9:02 EDT Respirations Unlabored Respiratory Pattern Regular Breath Sounds Auscultated Anterior only All Lobes Breath Sounds Clear Abdomen Description Non-distended, Soft, Rounded Swallowing Disorder None Bowel Sounds All Quadrants Present Skin Description Storla, Dry Skin Temperature Warm Neurological Symptoms Patient denies Extremity Movement Equal Characteristics of Speech Clear Level of Consciousness Alert Strength All Extremities Strong Tone All Extremities Normal Sensation All Extremities Intact Affect/Behavior Appropriate, Calm, Cooperative Orientation Oriented x 4 Assistive Device Cane (Modified) Positioning Repositions self Activity Status ADL Awake Standard Safety ID band on, Call device within reach, Bed in low position, Wheels locked, Upper/Half-Length side-rails up, Phone within reach, personal items within reach, Safety level maintained, Non-Slip footwear 08/17/2024 8:59 EDT Height 177.8 cm Admission Weight 75.7 kg Lind Body Weight 73.00 kg Type of Scale Used Bed scale Primary Pain Intensity 0 Pain Scale Type 0-10 Pain scale 08/17/2024 8:57 EDT Urinary Elimination Voiding, no difficulties IV Present Present Violence Risk Confused No Violence Risk Irritable No Violence Risk Boisterous No Violence Risk Verbal Threats No Violence Risk Physical Threats No Violence Risk Attacking Objects No Violence Risk Predictor Score 0 Allergies No Colon Prep Results Excellent Consent Form Signed Yes Patient Dressed In Hospital gown, No undergarments CHG Preoperative Wash/Wipe Not done Non-CHG Preoperative Shampoo Not applicable Preop Nasal Swab Not done CHG Skin Prep No History & Physical On Chart No Bowel Prep Completed Yes Pre-op Carbohydrate Drink No Obstructive Sleep Apnea Assess Completed Yes MRSA/MSSA Protocol No Belongings At Bedside Cell phone, Glasses, Pants, Shirt, Shoes, Socks, Undergarments, Wallet, Other: Earbuds NPO Status Maintained Allergy Band on and Verified No Patient ID Band on and Verified Yes Implants Verified Yes Site Verified by Patient/Family Yes Last Fluid Intake 08/16/2024 23:45 Last Food Intake 08/16/2024 8:00 Last Void 08/17/2024 8:58 08/17/2024 8:48 EDT Designated Person #1 We May Share WILY Caro - [phone] Designated Person #1 Relationship Sibling Designated Person #2 We May Share WILY lawler - [phone] Designated Person #2 Relationship Sibling Privacy Restrictions Requested None Status N/A Sensory Deficits Uncorrected visual impairment Sleep Apnea Snore No Sleep Apnea Tired No Sleep Apnea Obstruction No Sleep Apnea Pressure No Sleep Apnea BMI No Sleep Apnea Age Yes Sleep Apnea Neck No Sleep Apnea Gender Yes Sleep Apnea Score 2 Diagnosed With Sleep Apnea No Advanced Directives No - refuses information Infectious Disease Symptoms Cough Infectious Disease Recent Exposure No Alcohol and Drug Use No Employee of Institutional Living No Health Care Employee No History of Exposure to TB No History of Positive Chest X-Ray for TB No History of Positive TB Skin Test No Homeless No Known Immunosuppression No Recent Immigrant No Resident of Institutional Living No Bloody Sputum No Fatigue No Fever No Loss of Appetite No Night Sweats No Persistent Cough > 3 Weeks No Weight Loss No Surgery Scheduled On Date/Time 08/17/2024 10:30 Patient Aware Date/Time Of Surgery Yes Arrival Time the Day of Surgery 08/17/2024 8:30 Patient Aware of Arrival Time Yes Pre-Op Patient Education No smoking after midnight, No jewelry, Responsible Constitution Party, Aware of surgerylocation, Pre-op education done, Instructed to take ordered medications, Instructed to bring home medications, Clear liquids until arrival SN - Preprocedure Comments Spoke with patient, Verbalizes/Nonverbally indicates understanding, Other: FOLLOW BOWEL PREP INSTRUCTIONS Barriers to Learning None evident Teaching Method Explanation, Printed materials Preferred Spoken Language [place]an Preferred Written Language [place]an Teaching Evaluation Verbalizes/Nonverbally indicates understanding Safety Brochure Information Reviewed Yes Zeferino Aldridge Video Viewed No Patient's Current Physicians Patient's Current Physicians History of Malignant Hyperthermia No Discharge To, Anticipated Home independently Prev Test Positive/Diagnosis w/COVID-19 No Current Quarantine/Isolated any Illness No Any Contact with Sick Animals/Birds No Traveled Anywhere in Last 30 Days No Lost Weight Unintentionally Recently No Eat Poorly Due to Decreased Appetite No Total MST Score 0 N/A Personal Devices, Patient Valuables Glasses Anesthesia/Transfusions Prior anesthesia Admission Note-Nursing Same Day Patient History 08/17/2024 8:47 EDT SN - Preop - CTm Pt in SDS Room 08/17/2024 8:47 08/17/2024 8:45 EDT Temperature Temporal Artery 35.9 DegC Peripheral Pulse Rate 74 bpm Respiratory Rate 20 br/min Systolic Blood Pressure Non-Invasive 110 mmHg Diastolic Blood Pressure Non-Invasive 76 mmHg Heart Rhythm Regular Oxygen Therapy Room air Oxygen Saturation 95 % 08/16/2024 12:15 EDT Surgery Scheduled On Date/Time 08/17/2024 10:30 Arrival Time the Day of Surgery 08/17/2024 8:30 Patient Aware of Arrival Time Yes Pre-Op Patient Education No smoking after midnight, No jewelry, Responsible Constitution Party, Aware of surgerylocation, Pre-op education done, Instructed to take ordered medications, Instructed to bring home medications, Clear liquids until arrival (Modified) Admission Note-Nursing Patient History PreTest (Modified) . Assessment and Plan [place] Society of Anesthesiologists (ASA) physical status classification: Class III. Anesthetic Preoperative Plan Premedication: intravenous. Anesthetic technique: MAC. Induction: intravenously. Maintenance airway: Mask. Postoperative pain management: Per surgeon. Risks discussed: nausea, vomiting, headache, sore throat, dental injury, hypotension, allergic reaction, serious complications. Informed consent: signed by patient. Notes: Patient identified, medical record reviewed, medical history reviewed with patient. Assessment performed. Plan prescribed discussed with patient including risks. Inquiries invited and addressed. Consent signed by patient, pt agrees to proceed with sedation for planned procedure, possible GA if not tolerated. Beta Amaya: Beta Amaya Taken Within 24 Hrs: Yes. Digitally Signed by MACHELLE PATEL MD on 08/17/2024 09:50 AM [id number] History of Present illness Narrative* Yrn Yip RT(R) - 07/28/2024 4:00 PM EST Radiology Service Progress Note PATIENT NAME: Narciso Glez DATE OF SERVICE: July 28, 2024 TIME: 7:01 PM PATIENT IDENTITY VERIFICATION COMPLETED USING TWO (2) IDENTIFIERS: Name and Date of confirmedby patient verbally. FALL SCREENING: Has the patient had 2 falls in the last year or 1 fall with injury or currently using an Ambulatory Assistive Device (Walker, Cane, Wheelchair, Crutches, etc.)? No PATIENT GENDER DATA: Assigned male at PATIENT RELEVANT IMPLANT DATA REVIEWED: Not Applicable PATIENT PRESENTS WITH AN IMPLANTABLE OR ATTACHED SALES DRIVER: No RADIOLOGY DEPARTMENT: General X-ray: Exam(s) Completed: Upper Extremity X- Ray(s): Shoulder, OBL / Grashey / Y-View left PERIPHERAL IV DATA: Not applicable SIGNED BY: RT Marisol(Dinesh) July 28, 2024 7:01 PM documented [facility] NoteHNO ID: [id number] Author: YRN YIP RT(R) Service: ? Author Type: Technologist Type: Progress Notes Filed: 07/28/2024 19:02 Note Text: Radiology Service Progress Note PATIENT NAME: Narciso Glez DATE OF SERVICE: July 28, 2024 TIME: 7:01 PM PATIENT IDENTITY VERIFICATION COMPLETED USING TWO (2) IDENTIFIERS: Name and Date of confirmed by patient verbally. FALL SCREENING: Has the patient had 2 falls in the last year or 1 fall with injury or currently using an Ambulatory Assistive Device (Walker, Cane, Wheelchair, Crutches, etc.)? No PATIENT GENDER DATA: Assigned male at PATIENT RELEVANT IMPLANT DATA REVIEWED: Not Applicable PATIENT PRESENTS WITH AN IMPLANTABLE OR ATTACHED SALES DRIVER: No RADIOLOGY DEPARTMENT: General X-ray: Exam(s) Completed: Upper Extremity X-Ray(s): Shoulder, OBL / Grashey / Y-View left PERIPHERAL IV DATA: Not applicable SIGNED BY: RT Marisol(R) July 28, 2024 7:01 [facility]02-14-2025 Note* Jaye Vera: SIGN, AUTHOR, PERFORM Event Display: US Procedure Record Authored Date: [id number] US Procedure Record Summary Primary Physician: Finalized Date/Time: 07/08/24 10:14:05 Pt. Name: NARCISO GLEZ/Sex: 1965 Male Med Rec #: [id number] Physician: Financial #: [id number] Pt. Type: O Room/Bed: / Admit/Disch: 07/08/24 09:11:04 - Institution: Allergies identified in patient's electronic medical record at time of printing on 07/08/24 Entry 1 Substance NKA Reaction Type Allergy Last Modified By: Merry Pabon RN 02/17/24 15:03:35 Case Attendance- US Entry 1 Entry 2 Case Attendee AMINA GUZMAN PA-C, Danielle M Role Performed Radiology PA/RA Instrument Assembler Details Time In 07/08/24 10:00:00 07/08/24 10:00:00 Time Out 07/08/24 10:05:00 07/08/24 10:05:00 Procedure/Preference Case Cancelled After in Case Cancelled After in Card Room/Induction Room/Induction Last Modified By: Jaye Vera Danielle M 07/08/24 10:13:38 07/08/24 10:13:38 Radiology Procedures- US Entry 1 Procedure/Preference Case Cancelled After in Actual Procedure CASE CANCELLED AFTER IN Card Room/Induction ROOM/INDUCTION Primary Procedure Yes Primary Surgeon AMINA GUZMAN PA-C Anesthesia/Sedation None Type Additional Procedure Times Start 07/08/24 10:01:00 Stop 07/08/24 10:02:00 Specialty Service SN Radiology Procedure EBL 0 mL Last Modified By: Jaye Vera 07/08/24 10:13:54 General Case Data- US Entry 1 Case Information Room Rad Receiving Case Level None Wound Class None Specialty SN Radiology Procedure ASA Class None Diagnosis Preop Diagnosis ascites Postop Same As Preop No Postop Diagnosis CASE CANCELLED Last Modified By: Jaye Vera 07/08/24 10:12:06 Case Times- US Entry 1 Patient In Procedure Patient In OR 07/08/24 10:00:00 Patient Out of OR 07/08/24 10:05:00 Procedure Start/Stop Procedure Start Time 07/08/24 10:01:00 Procedure Stop Time 07/08/24 10:02:00 Last Modified By: Jaye Vera 07/08/24 10:11:16 Case Comments <None> Finalized By: Jaye Vera Document Signatures Signed By: Jaye Vera 07/08/24 10:14 [facility] 02-14-2025 Note* Exam Date Time Procedure Performing Provider Status 07/08/24 10:27 AM US Elastography Liver w/ABD LTD MEL CHERRY MD; Auth (Verified) [id number] ORIGINAL EXAMINATION: LIVER ELASTOGRAPHY ULTRASOUND07/08/2024 10:28 am RUQ Limited ultrasound abdomen and Hepatic elastography COMPARISON: CT 02/17/2024 TECHNIQUE: This report is based on interpretation of permanently recorded ultrasound images. HISTORY: ORDERING SYSTEM PROVIDED HISTORY: Reason for Exam: CIRRHOSIS, FINDINGS: The gallbladder is moderately distended with multiple calculi. There is no significant wall thickening. Negative sonographic Clayton's sign.. There is no intrahepatic bile duct dilatation. The common duct is 2 mm at the kashmir hepatis. The liver is diffusely coarsened with mild heterogeneity and mildly increased echogenicity. There is nodularity of some of the visualized liver margins. No focal liver abnormality is seen. The main portal vein is patent with normal antegrade blood flow. The pancreas as visualized shows no focal lesions, small portions are obscured by bowel gas artifacts. No ascites is seen in the RUQ. Limited survey images of the right kidney show normal size and echogenicity with no pelvocaliectasis.. Elastography of the liver was performed in the right lobe. Median velocity: 1.57 m/s IQR/median ratio: 7% (Value less than or equal to 15% should be seen to ensure exam adequacy.) IMPRESSION: Indicators of diffuse hepatocellular disease with slightly nodular margins of the liver on some images. No focal liver lesion is seen. No ascites on this study. Gallstones without secondary signs of acute cholecystitis. Liver elastography indicates normal to mild risk of clinically significant liver fibrosis. This may be a false negative result given nodular cirrhotic morphology of the liver on this study and on the CT. Shear Wave Liver Elastography-liver fibrosis staging Median Velocity: Recommendation: 1.35-1.66 m/s (5.48 kPa - 8.29 kPa) Normal to mild risk of clinically significant liver fibrosis : METAVIR Stage F1 1.66-1.77 m/s (8.29 kPa - 9.40 kPa) Tbfw-ph-slomubgu risk of clinically significant liver fibrosis. (METAVIR Stage F2) 1.77-1.99 m/s (9.40 kPa - 11.9 kPa) Moderate to severe risk of clinically significant liver fibrosis (METAVIR Stage F3) > 1.99 m/s (> 11.9 kPa) Advanced Fibrosis and/or Cirrhosis: (METAVIR Stage F4) Interpreted by: Mel Cherry MD Preliminary Report By: Mel Cherry MD Electronically signed By Mel Cherry MD Dictated Date: 07/08/2024 3:17:43 PM Prelim Date: 07/08/2024 3:21:09 PM Sign Date: 07/08/2024 3:21:09 PM Ordering Provider: [facility]02-14-2025 Note* Exam Date Time Procedure Performing Provider Status 07/08/24 10:15 AM US Abdomen for Ascites MILADIS POND; Auth (Verified) [id number] ORIGINAL EXAMINATION: 1. US ABDOMEN FOR ASCITES - LIMITED CLINICAL STATEMENT: Concern for ascites COMPARISON: US Paracentesis 02/22/2024 FINDINGS: ASCITES: Trace amount of ascites is noted throughout the abdomen IMPRESSION: 1. Insufficient ascites for safe paracentesis at this time. This evaluation was performed by Amina Guzman PA-C Interpreted by: Miladis Pond MD Preliminary Report By: Amina Guzman Electronically signed By Miladis Pond MD Dictated Date: 07/08/2024 10:16:37 AM Prelim Date: 07/08/2024 10:18:49 AM Sign Date: 07/08/2024 11:49:06 AM [facility]ing [facility] Note US Procedure Record Summary Primary Physician: Finalized Date/Time: 07/08/24 10:14:05 Pt. Name: NARCISO GLEZ /Sex: 1965 Male Med Rec #: [id number] Physician: Financial #: [id number] Pt. Type: O Room/Bed: / Admit/Disch: 07/08/24 09:11:04 - Institution: Allergies identified in patient's electronic medical record at time of printing on 07/08/24 Entry 1 Substance NKA Reaction Type Allergy Last Modified By: Merry Pabon RN 02/17/24 15:03:35 Case Attendance- US Entry 1 Entry 2 Case Attendee AMINA GUZMAN PA-C, Danielle M Role Performed Radiology PA/RA Instrument Assembler Details Time In 07/08/24 10:00:00 07/08/24 10:00:00 Time Out 07/08/24 10:05:00 07/08/24 10:05:00 Procedure/Preference Case Cancelled After in Case Cancelled After in Card Room/Induction Room/Induction Last Modified By: Jaye Vera Danielle M 07/08/24 10:13:38 07/08/24 10:13:38 Radiology Procedures- US Entry 1 Procedure/Preference Case Cancelled After in Actual Procedure CASE CANCELLED AFTER IN Card Room/Induction ROOM/INDUCTION Primary Procedure Yes Primary Surgeon AMINA GUZMAN PA-C Anesthesia/Sedation None Type Additional Procedure Times Start 07/08/24 10:01:00 Stop 07/08/24 10:02:00 Specialty Service SN Radiology Procedure EBL 0 mL Last Modified By: Jaye Vera 07/08/24 10:13:54 General Case Data- US Entry 1 Case Information Room [facility] Receiving Case Level None Wound Class None Specialty SN Radiology Procedure ASA Class None Diagnosis Preop Diagnosis ascites Postop Same As Preop No Postop Diagnosis CASE CANCELLED Last Modified By: Jaye Vera 07/08/24 10:12:06 Case Times- US Entry 1 Patient In Procedure Patient In OR 07/08/24 10:00:00 Patient Out of OR 07/08/24 10:05:00 Procedure Start/Stop Procedure Start Time 07/08/24 10:01:00 Procedure Stop Time 07/08/24 10:02:00 Last Modified By: Jaye Vera 07/08/24 10:11:16 Case Comments Finalized By: Jaye Vera Document Signatures Signed By: Jaye Vera 07/08/24 10:14 [id number] Procedure note IR Brief Post Procedure Note Preprocedure Dx: Concern for ascites Post Procedure Dx: Same Procedure: US abdomen to evaluate for ascites Complications: None Status: Unchanged Findings: 1. US abdomen demonstrates trace ascites Plan: 1. Insufficient ascites for safe paracentesis at this time Full report to follow. Amina Guzman PA-C Interventional Radiology Pager: [phone] IR dept: [email or web address] on twidox Digitally Signed by AMINA GUZMAN PA-C on 07/08/2024 09:39 AM [id number] Evaluation + Plan note Future Appointments Future Scheduled Tests Laboratory* Basic Metabolic Panel 05/09/24 * Complete Blood Count 03/04/24 * Hepatitis C Antibody IgG 05/09/24 * HIV 1/2 Ab 05/09/24 * Complete Metabolic Panel 03/04/24 Radiology* CT Head or Brain w/o Contrast 03/07/24 [facility] 11-15-2024 History of Present illness Narrative* Robert Cerda RT(R) - 04/08/2024 11:00 AM ESTSummary: ct Radiology Service Progress Note PATIENT NAME: Narciso Glez DATE OF SERVICE: April 08, 2024 TIME: 11:11 AM PATIENT IDENTITY VERIFICATION COMPLETED USING TWO (2) IDENTIFIERS: Name and Date of confirmedby patient verbally. FALL SCREENING: Has the patient had 2 falls in the last year or 1 fall with injury or currently using an Ambulatory Assistive Device (Walker, Cane, Wheelchair, Crutches, etc.)? No PATIENT GENDER DATA: Male PATIENT RELEVANT IMPLANT DATA REVIEWED: Not Applicable PATIENT PRESENTS WITH AN IMPLANTABLE OR ATTACHED SALES DRIVER: No RADIOLOGY DEPARTMENT: CT; Exam(s) Completed: Brain PERIPHERAL IV DATA: Not applicable SIGNED BY: JANES Doty) April 08, 2024 11:11 AM documented in [facility] encounter[facility]-2024 NoteHNO ID: [id number] Author: ROBERT CERDA RT(R) Service: Radiology Author Type: Technologist Type: Progress Notes Filed: 04/08/2024 11:18 Note Text: Summary: ct Radiology Service Progress Note PATIENT NAME: Narciso Glez DATE OF SERVICE: April 08, 2024 TIME: 11:11 AM PATIENT IDENTITY VERIFICATION COMPLETED USING TWO (2) IDENTIFIERS: Name and Date of confirmed by patient verbally. FALL SCREENING: Has the patient had 2 falls in the last year or 1 fall with injury or currently using an Ambulatory Assistive Device (Walker, Cane, Wheelchair, Crutches, etc.)? No PATIENT GENDER DATA: Male PATIENT RELEVANT IMPLANT DATA REVIEWED: Not Applicable PATIENT PRESENTS WITH AN IMPLANTABLE OR ATTACHED SALES DRIVER: No RADIOLOGY DEPARTMENT: CT; Exam(s) Completed: Brain PERIPHERAL IV DATA: Not applicable SIGNED BY: JANES Doty) April 08, 2024 11:11 [facility]10-05-2024 Note. MICRO - Microbiology PROCEDURE: Culture Body Fluid with Gram Stain [*1] SOURCE: Paracentesis Fluid BODY SITE: COLLECTED DATE/TIME: 02/22/2024 12:06 EDT RECEIVED DATE/TIME: 02/22/2024 15:16 EDT START DATE/TIME: 02/22/2024 15:16 EDT FREE TEXT SOURCE: FINAL REPORTS Final Report [] Verified Date/Time/Personnel: 02/27/2024 15:59 EDT Culture: No Growth at 5 days. PRELIMINARY REPORTS Preliminary Report [] Verified Date/Time/Personnel: 02/22/2024 15:59 EDT Culture has been received in lab and is no growth to date. Routine cultures are held for 5 days. STAINS GS [] Verified Date/Time/Personnel: 02/22/2024 17:10 EDT 1+ Mononuclear cells No organisms seen. Performing Locations *1: This test was performed at: [address], [address] , [facility] [id number] Note. MICRO - Microbiology PROCEDURE: Culture Body Fluid with Gram Stain [*1] SOURCE: Peritoneal Fluid BODY SITE: COLLECTED DATE/TIME: 02/18/2024 14:30 EDT RECEIVED DATE/TIME: 02/18/2024 16:13 EDT START DATE/TIME: 02/18/2024 16:13 EDT FREE TEXT SOURCE: FINAL REPORTS Final Report [] Verified Date/Time/Personnel: 02/23/2024 16:59 EDT Culture: No Growth at 5 days. PRELIMINARY REPORTS Preliminary Report [] Verified Date/Time/Personnel: 02/18/2024 16:59 EDT Culture has been received in lab and is no growth to date. Routine cultures are held for 5 days. STAINS GS [] Verified Date/Time/Personnel: 02/18/2024 18:17 EDT Sedimented 2+ Mononuclear cells 1+ Polymorphonuclear cells No organisms seen. Performing Locations *1: This test was performed at: [address], [address] , [facility] [id number] Discharge summary Date of Service 02/22/2024 Discharge Diagnosis 1. Decompensated alcoholic liver cirrhosis Romeo class B. 2. History of alcohol abuse. 3. Anemia of chronic disease. 4. Smoking. Alcoholic cirrhosis of liver with ascites (K70.31 - ICD-10-CM) Alcoholic cirrhosis of liver with ascites (K70.31 - ICD-10-CM) Nutritional anemia, unspecified (D53.9 - ICD-10-CM) Fluid overload, unspecified (E87.70 - ICD-10-CM) Alcohol abuse, uncomplicated (F10.10 - ICD-10-CM) Nicotine dependence, cigarettes, uncomplicated (F17.210 - ICD-10-CM) Chronic obstructive pulmonary disease, unspecified (J44.9 - ICD-10-CM) Depression, unspecified (F32.A - ICD-10-CM) Shortness of breath (R06.02 - ICD-10-CM) Neuropathy (G62.9 - ICD-10-CM) Ordered: gabapentin 300 mg oral capsule; Dose : 300 mg = 1 cap(s), Oral, BID, # 60 cap(s), 0 Refill(s), [id number], Neuropathy, 177.8, cm, 02/18/24 0:50:00 EDT, Height, 82.6, kg, 02/18/24 0:50:00 EDT, Dosing Weight Additional Orders: Ordered: Aldactone 50 mg oral tablet,Dose : 50 mg = 1 tab(s), Oral, BID, # 60 tab(s), 0 Refill(s), Pharmacy: [facility]/pharmacy #[id number], 177.8, cm, 02/18/24 0:50:00 EDT, Height, kg, 02/18/24 0:50:00 EDT, Dosing Weight Other status: Discharge,02/22/24 13:34:00 EDT, Discharged to: Home(Complete) Ordered: Discharge Activity,Resume your pre-hospitalization activity, 02/22/24 13:34:00 EDT Ordered: Discharge Diet,Type of Diet: Regular, 02/22/24 13:34:00 EDT Ordered: Lasix 40 mg oral tablet,Dose : 40 mg = 1 tab(s), Oral, qDay, # 30 tab(s), 0 Refill(s), Pharmacy: [facility]/pharmacy #[id number], 177.8, cm, 02/18/24 0:50:00 EDT, Height, kg, 02/18/24 0:50:00 EDT, DosingWeight Discontinued: albuterol 2.5 mg/3 mL (0.083%) inhalation solution,Dose : 2.5 mg = 3 mL, Nebulized, q6hr, PRN Shortness of breath or wheezing, 0 Refill(s) Ordered: albuterol 2.5 mg/3 mL (0.083%) inhalation solution,Dose : 2.5 mg = 3 mL, Nebulized, q6hr, PRN Shortness of breath or wheezing, # 30 EA, 0 Refill(s), Pharmacy: [facility]/pharmacy #[id number], 177.8, cm, 02/18/24 0:50:00 EDT, Height, kg, 02/18/24 0:50:00 EDT, Dosing Weight Ordered: budesonide 0.5 mg/2 mL inhalation suspension,Dose : 0.5 mg = 2 mL, Inhalation, BIDRT, # 120 mL, 0 Refill(s), Pharmacy: [facility]/pharmacy #[id number], 177.8, cm, 02/18/24 0:50:00 EDT, Height, kg, 02/18/24 0:50:00 EDT, Dosing Weight Ordered: lactulose 10 g/15 mL oral syrup,Dose : 10 gram(s) = 15 mL, Oral, qHS, X 30 day(s), # 450 mL, 0 Refill(s), 03/23/24 13:31:00 EDT, Pharmacy: [facility]/pharmacy #[id number], 177.8, cm, 02/18/24 0:50:00 EDT, Height, kg, 02/18/24 0:50:00 EDT, Dosing Weight Discontinued: spironolactone 25 mg oral tablet,Dose : 25 mg = 1 tab(s), Oral, qDay, 0 Refill(s) End of Orders Hospital Course 50-year-old male with multiple medical problems listed above presented to the hospital with abdominal distention and lower extremity edema was admitted for decompensated alcoholic liver cirrhosis, patient was started on Lasix, spironolactone, lactulose, patient underwent for paracentesis on 02/18/2024 and 02/22/2024, gastroenterology team evaluated the patient and they recommended to continue with the medication. During the hospital stay patient did have arterial Doppler of lower extremities and there was no compromise of the circulation. Patient was examined and evaluated by me today he was awake alert and oriented x 3, denying any chest pain shortness breath cough fever chills, denied abdominal pain nausea or vomiting, no recliners or dizziness, patient was tolerating diet fairly well, patient will be discharged home today all hisquestions were answered, his concerns were addressed, I did speak to the patient's daughter over the phone I updated her about the patient's condition all her questions were answered, all concerns were addressed. Allergies NKA Procedures Paracentesis on 02/18/2024 and 02/22/2024 Consults Consult to Physician - Ordered -- 02/20/24 12:44:00 EDT, AUBRIE BIRMINGHAM MD, Routine, follow medically, Cirrhosis, establish care and f/u Imaging Results and Diagnostics Please see Diaz Objective Vitals and Measurements T: 36.8 C (Oral) TMIN: 36.7 C (Oral) TMAX: 36.9 C (Oral) HR: 96 (Apical) RR: 18 BP: 103/79 SpO2: 97% Weight Dosing Weight: 82.6 kg (02/19/24) Dosing Weight: 80.4 kg (02/17/24) Head: atraumatic normocephalic Neck: supple no JVD Lungs: clear to auscultation bilaterally, no wheezes no accessory muscle use. Heart: S1-S2 regular rate and rhythm, no murmurs Abdomen: soft nontender nondistended, bowel sounds are present all 4 quadrants Lower extremities: no cyanosis, no chronic skin changes, pulse palpable +1 bilaterally, +1 edema Skin: showed no rash Neurological: patient is awake alert and oriented 3, no focal logical deficit. Pending Labs and Studies None Code Status Full code Admission Date 02/17/2024 Discharge Date 02/22/2024 Medications New Prescription budesonide (budesonide 0.5 mg/2 mL inhalation suspension)2 Milliliter by inhalation two (2) times aday. Refills: 0. furosemide (Lasix 40 mg oral tablet)1 tab(s) by mouth once a day. Refills: 0. gabapentin (gabapentin 300 mg oral capsule)1 cap by mouth two (2) times a day. Refills: 0. lactulose (lactulose 10 g/15 mL oral syrup)15 Milliliter by mouth daily at bedtime for 30 Days. Refills: 0. Changed albuterol (albuterol 2.5 mg/3 mL (0.083%) inhalation solution)3 Milliliter Nebulized inhalation every 6 hours as needed Shortness of breath or wheezing for 30 Days. Refills: 0. spironolactone (Aldactone 50 mg oral tablet)1 tab(s) by mouth two (2) times a day. Refills: 0. Follow Up Follow Up with AUBRIE BIRMINGHAM MD When:In 3 weeks Where:[address] [facility] [place] [address] [phone] Follow Up with GLO THORNE DO When:03/04/2024 03:00 PM EDT Where:[address] [facility] [place] [address]- Additional Information: Please arrive 15 minutes early. Bring your insurance card and your photo IDalong with a list of medications. Follow Up Appointments No qualifying data available. Follow Up Labs/Studies Discharge Labs No Follow-up Labs Discharge Studies No Follow-up Studies Discharge Diet Discharge Diet - Ordered -- Type of Diet: Regular, 02/22/24 13:34:00 EDT Discharge Activity Discharge Activity - Ordered -- Resume your pre-hospitalization activity, 02/22/24 13:34:00 EDT Condition on Discharge stable Readmission Risk/Palliative Score No qualifying data available. Discharge Disposition home Time Spent 35 minutes Digitally Signed by MILTON ESTRADA MD on 02/22/2024 03:34 PM [id number] Note Discharge Instructions Thank you for allowing [facility] to assist you with your healthcare needs. The following is importantdischarge information regarding your hospital visit. Your Care Team PHYSICIAN, NONE Your Diagnosis Neuropathy What to do next Follow Up Appointments Follow Up with AUBRIE BIRMINGHAM MD When:In 3 weeks Where:[address] [facility] [place] [place] [address] [phone] Follow Up with GLO THORNE DO When:03/04/2024 03:00 PM EDT Where:[address] [facility] [place] [address]- Additional Information: Please arrive 15 minutes early. Bring your insurance card and your photo IDalong with a list of medications. The Following Activity and Diet Have Been Ordered for You Discharge Activity - Ordered -- Resume your pre-hospitalization activity, 02/22/24 13:34:00 EDT Discharge Diet - Ordered -- Type of Diet: Regular, 02/22/24 13:34:00 EDT The Following Equipment Has Been Ordered for You No qualifying data available. The Following Treatments Have Been Ordered for You Discharge Labs No qualifying data available. Discharge Radiology No qualifying data available. Other Therapies No qualifying data available. Post Acute Orders No qualifying data available. Someone Will Contact You Regarding These Home Health Referrals No home referrals have been ordered for you. No one will call you. Allergies NKA Medications Please ask your primary doctor or pharmacist before taking any other medication not listed, including over the counter drugs, herbal medications, vitamins and or supplements as they may interact withyour home medications. What How Much When Why Instructions Last Dose New budesonide (budesonide 0.5 mg/ 2 mL inhalation suspension) 2 Milliliter by inhalation Two (2) times a day Pickup at [facility]/pharmacy #[id number] New furosemide (Lasix 40 mg oral tablet) 1 tab(s) by mouth Once a day [id number] New gabapentin (gabapentin 300 mg oral capsule) 1 cap by mouth Two (2) times a day Neuropathy [facility] New lactulose (lactulose 10 g/ 15 mL oral syrup) 15 Milliliter by mouth Daily at bedtime Duration: 30 Days [facility] Changed albuterol (albuterol 2.5 mg/ 3 mL (0.083%) inhalation solution) 3 Milliliter Nebulized inhalation Every 6 hours as needed for Shortness of breath or wheezing Duration: 30 Days Pickup at [facility] #8248 Changed spironolactone (Aldactone 50 mg oral tablet) 1 tab(s) by mouth Two (2) times a day [id number] [address] [place], [place] [phone] Please take this list to your next doctor s visit. Bring all medications you take, including over the counter medications, herbals and other supplements with you to your doctor s visit. Patients and families are reminded to discard old lists and to update any records with all medication providers or retail pharmacies. Education Materials Cirrhosis Cirrhosis is long-term (chronic) liver injury. The liver is the body's largest internal organ, and it performs many functions. It converts food into energy, removes toxic material from the blood, makes important proteins, and absorbs necessary vitamins from food. In cirrhosis, healthy liver cells are replaced by scar tissue. This prevents blood from flowing through the liver, making it difficult for the liver to function. Scarring of the liver cannot be reversed, but treatment can prevent it from getting worse. What are the causes? Common causes of this condition are hepatitis C and long-term alcohol abuse. Other causes include: Nonalcoholic fatty liver disease. This happens when fat is deposited in the liver by causes other than alcohol. Hepatitis B infection. Autoimmune hepatitis. In this condition, the body's defense system (immune system) mistakenly attacks the liver cells, causing irritation and swelling (inflammation). Diseases that cause blockage of ducts inside the liver. Inherited liver diseases, such as hemochromatosis. This is one of the most common inherited liver diseases. In this disease, deposits of iron collect in the liver and other organs. Reactions to certain long-term medicines, such as amiodarone, a heart medicine. Parasitic infections. These include schistosomiasis, which is caused by a flatworm. Long-term contact to certain toxins. These toxins include certain organic solvents, such as tolueneand chloroform. What increases the risk? You are more likely to develop this condition if: You have certain types of viral hepatitis. You abuse alcohol, especially if you are female. You are overweight. You share needles. You have unprotected sex with someone who has viral hepatitis. What are the signs or symptoms? You may not have any signs and symptoms at first. Symptoms may not develop until the damage to yourliver starts to get worse. Early symptoms may include: Weakness and tiredness (fatigue). Changes in sleep patterns or having trouble sleeping. Itchiness. Tenderness in the right-upper part of your abdomen. Weight loss and muscle loss. Nausea. Loss of appetite. Appearance of tiny blood vessels under the skin. Later symptoms may include: Fatigue or weakness that is getting worse. Yellow skin and eyes (jaundice). Buildup of fluid in the abdomen (ascites). You may notice that your clothes are tight around your waist. Weight gain. Swelling of the feet and ankles (edema). Trouble breathing. Easy bruising and bleeding. Vomiting blood. Black or bloody stool. Mental confusion. How is this diagnosed? Your health care provider may suspect cirrhosis based on your symptoms and medical history, especially if you have other medical conditions or a history of alcohol abuse. Your health care provider will do a physical exam to feel your liver and to check for signs of cirrhosis. He or she may perform other tests, including: Blood tests to check: ? For hepatitis B or C. ? Kidney function. ? Liver function. Imaging tests such as: ? MRI or CT scan to look for changes seen in advanced cirrhosis. ? Ultrasound to see if normal liver tissue is being replaced by scar tissue. A procedure in which a long needle is used to take a sample of liver tissue to be checked in a lab (biopsy). Liver biopsy can confirm the diagnosis of cirrhosis. How is this treated? Treatment for this condition depends on how damaged your liver is and what caused the damage. It may include treating the symptoms of cirrhosis, or treating the underlying causes in order to slow thedamage. Treatment may include: Making lifestyle changes, such as: ? Eating a healthy diet. You may need to work with your health care provider or a diet and nutrition intern (dietitian) to develop an eating plan. ? Restricting salt intake. ? Maintaining a healthy weight. ? Not abusing drugs or alcohol. Taking medicines to: ? Treat liver infections or other infections. ? Control itching. ? Reduce fluid buildup. ? Reduce certain blood toxins. ? Reduce risk of bleeding from enlarged blood vessels in the stomach or esophagus (varices). Liver transplant. In this procedure, a liver from a donor is used to replace your diseased liver. This is done if cirrhosis has caused liver failure. Other treatments and procedures may be done depending on the problems that you get from cirrhosis. Common problems include liver-related kidney failure (hepatorenal syndrome). Follow these instructions at home: Take medicines only as told by your health care provider. Do not use medicines that are toxic to your liver. Ask your health care provider before taking any new medicines, including bwjj-lrd-tszxzjv medicines. Rest as needed. Eat a well-balanced diet. Ask your health care provider or dietitian for more information. Limit your salt or water intake, if your health care provider asks you to do this. Do not drink alcohol. This is especially important if you are taking acetaminophen. Keep all follow-up visits as told by your health care provider. This is important. Contact a health care provider if you: Have fatigue or weakness that is getting worse. Develop swelling of the hands, feet, legs, or face. Have a fever. Develop loss of appetite. Have nausea or vomiting. Develop jaundice. Develop easy bruising or bleeding. Get help right away if you: Vomit bright red blood or a material that looks like coffee grounds. Have blood in your stools. Notice that your stools appear black and tarry. Become confused. Have chest pain or trouble breathing. Summary Cirrhosis is chronic liver injury. Liver damage cannot be reversed. Common causes are hepatitis C and long-term alcohol abuse. Tests used to diagnose cirrhosis include blood tests, imaging tests, and liver biopsy. Treatment for this condition involves treating the underlying cause. Avoid alcohol, drugs, salt, and medicines that may damage your liver. Contact your health care provider if you develop ascites, edema, jaundice, fever, nausea or vomiting, easy bruising or bleeding, or worsening fatigue. This information is not intended to replace advice given to you by your health care provider. Make sure you discuss any questions you have with your health care provider. Document Released: 05/11/2006 Document Revised: 08/31/2019 Document Reviewed: 03/31/2018 [employer] Patient Education 2020 [employer]. Additional Information VACCINATE! IT SAVES LIVES! Members of the community who have not yet received the COVID-19 vaccine and would like to receive it can visit one of [facility] vaccine clinics. There are many vaccine clinic locations within the [facility]. For locations and available times, please visit https://gettheshot.coronavirus.[place].gov/. It is important to note that some COVID mobile vaccine clinics are held outdoors and may be canceled in rainy or stormy conditions. To learn more about pediatric vaccinations (ages 5-11), we invite you to visit the [facility] webpage. https://www.[facility].org/pages/2903-Btykg-Zbdseiyzhpe-Ciodpahrii-Bbqab-Owy stions.htmlTo learn more about the COVID-19 vaccine, we invite you to visit the CDC website for a list of frequently asked questions.https://www.cdc.gov/coronavirus/2019-ncov/vaccines/faq.html [facility] Patient Portal Access Instructions: Stay connected with your healthcare team and access your personal medical information anytime with the [facility] Patient Portal. Please follow the directions below to create your [facility] account: 1.Access the email account you provided upon registration to the hospital/physician office.2.Look for an invitation email from [facility].3.Open the email and access the invitation link: AcceptInvitation to [facility].4.Fill in the required glez to create your account. To access your account, visit [email or web address]. Click the blue button labeled Access Patient Portal and then log in with the username and password that you created in the steps above. You will be able to view your test results, lab results, a summary of your visits, upcoming appointments and more. There is also a convenient messaging option where you can send secure messages to your [employer]vider. In addition, you will have the ability to download any documents or summaries to your computer and/or send the information securely to a physician. Remember that your healthcare information is confidential, so carefully consider who you will allowto register on the [facility] Patient Portal for access to your information. You can also access the [facility] Patient Portal on the [employer] enrique. Simply click on Patient Portal and then log into your account. If you would like to receive a full copy of your medical records, please contact the [facility] Medical Records Department by calling [phone], Thursday through Thursday between 8 a.m. and 4:30 p.m. HOW TO SAFELY DISPOSE OF PRESCRIPTION MEDICATIONS Please use one of the following methods to safely dispose of your unused medications. 1.Use a drug disposal kit: the drug disposal pouch allows you to safely discard your old and unuseddrugs. Ask your nurse to give you one when you are discharged.2.Visit a local take-back location: Many local pharmacies and police departments have programs that collect old and unwanted prescriptiondrugs. Call your local pharmacy or go to http://bit.[employer] Growth/6M3Je8i to find one close to you.3.Make use of household items: Use cat litter or old coffee grounds to dispose medications if other options arenot available. Mix your drugs with these household products, seal them in an airtight container andthrow it into the garbage. Call [facility]: [phone] to be sure your drugs can be disposed of in this way. Some medicines may require a different approach.4.Never flush your medications down the toilet. IF YOU HAVE BEEN PRESCRIBED AN OPIOID FOR PAIN If you have been prescribed an opioid (such as hydrocodone, oxycodone or morphine), it is critical to understand the possible side effects and risks of opioid pain medications. Even when taken as directed, opioids can have several side effects including: Tolerance, meaning you might need to take more of a medication for the same pain relief. Nausea, vomiting and/or constipation. Sleepiness, dizziness, dry mouth, confusion, depression or itching. Physical dependence, meaning you have withdrawal symptoms when a medication is stopped, can develop within a few days. KNOW YOUR RESPONSIBILITIES It is important to know exactly how much and how often to take the opioid pain medications you are prescribed. Never take opioids in higher amounts or more often than prescribed. Do not combine opioids with alcohol or other drugs that cause drowsiness, such as benzodiazepines, also known as benzos, including diazepam and alprazolam, muscle relaxants or sleep aids. Never sell or share prescription opioids. This is illegal. Store opioids in a secure place and out of reach of others (including children, family, friends and visitors). The last page of this document has been signed and retained as a CHART COPY. Signatures Patient Education Materials Cirrhosis Medication Leaflets My discharge plan and instructions have been reviewed and explained to me and IDREW RICHARD understand my current condition and have read and understand these discharge instructions. I have received a written copy of the plan/instructions. If I have questions, I am aware that I should contact my doctor. 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 All questions were answered. Written informed consent was obtained. Accompanying paperwork was verified for accuracy. Directed history and physical exam performed prior to the procedure. Medication reconciliation was performed by nursing personnel. Procedure was performed using a cap, sterile gloves, a large sterile sheet, hand hygiene and hospital-approved cutaneous antisepsis. Ultrasound survey demonstrates ascites. 2% lidocaine was administered at the puncture site for local anesthesia. The centesis catheter needle was advanced into the fluid. After removal of the needle, the catheter was attached to vacuum bottles and removed once no additional fluid could be removed. COMPLICATIONS: None EBL: None PATIENT CONDITION: unchanged IMPRESSION: Successful ultrasound-guided paracentesis. The procedure was performed by Domonique Valera, Physician Solution Advisor. I concur with the contents of the report. Interpreted by: Adolph Morales MD Preliminary Report By: Domonique Valera PA-C Electronically signed By Adolph Morales MD Dictated Date: 02/22/2024 4:13:38 PM Prelim Date: 02/22/2024 4:14:10 PM Sign Date: 02/22/2024 4:23:00 PM Ordering Provider: [facility]09-30-2024 Note US Procedure Record Summary Primary Physician: DOMONIQUE VALERA PA-C Finalized Date/Time: 02/22/24 12:32:32 Pt. Name: NARCISO GLEZ/Sex: 1965 Male Med Rec #: [id number] Physician: DONNA FAJARDO MD Financial #: [id number] Pt. Type: I Room/Bed: [facility] Admit/Disch: 02/17/24 14:37:36 - Institution: Allergies identified in patient's electronic medical record at time of printing on 02/22/24 Entry 1 Substance NKA Reaction Type Allergy Last Modified By: Merry Pabon RN 02/17/24 15:03:35 Case Attendance- US Entry 1 Entry 2 Case Attendee DOMONIQUE VALERA PA-C, Claudia M Role Performed Primary Surgeon Instrument Assembler Details Time In 02/22/24 11:55:00 02/22/24 11:55:00 Time Out 02/22/24 12:31:00 02/22/24 12:31:00 Procedure/Preference US Paracentesis (SN) US Paracentesis (SN) Card Last Modified By: Talya Dickey Claudia M 02/22/24 12:32:03 02/22/24 12:32:03 Radiology Procedures- US Entry 1 Procedure/Preference US Paracentesis (SN) Actual Procedure US PARACENTESIS Card Primary Procedure Yes Primary Surgeon DOMONIQUE VALERA PA-C Anesthesia/Sedation Local Type Additional Procedure Times Start 02/22/24 12:04:00 Stop 02/22/24 12:25:00 Specialty Service SN Radiology Procedure EBL 0 mL Last Modified By: Talya Dickey 02/22/24 12:31:28 Cultures and Specimens- US Entry 1 Kind Specimen Type Fluid Last Modified By: Talya Dickey 02/22/24 12:06:53 General Case Data- US Entry 1 Case Information Room [facility] Receiving Case Level None Wound Class None Specialty SN Radiology Procedure ASA Class None Diagnosis Preop Diagnosis ascites Postop Same As Preop Yes Postop Diagnosis ascites Last Modified By: Tayla Dickey 02/22/24 12:14:23 Medication Administration- US Entry 1 Medication 2% Lidocaine Time Administered 02/22/24 12:05:00 Route of Admin Local Volume 5 VORB Administered by Yes Administered by: DOMONIQUE VALERA PA-C Physician? Last Modified By: Talya Dickey 02/22/24 12:05:47 Case Times- US Entry 1 Patient In Procedure Patient In OR 02/22/24 11:55:00 Patient Out of OR 02/22/24 12:31:00 Procedure Start/Stop Procedure Start Time 02/22/24 12:04:00 Procedure Stop Time 02/22/24 12:25:00 Last Modified By: Talya Dickey 02/22/24 12:31:14 Immediate Post Procedure Note- US Entry 1 Immediate Post Yes Findings Yellow serous fluid Procedure Note drained from right displayed for upper abdomen Physician to review Closure Technique Closure Technique Other than Primary Last Modified By: Talya Dickey 02/22/24 12:13:54 Immediate Post Procedure Note- US Signed By: DOMONIQUE VALERA PA-C 02/22/24 12:13 Allergy Information- US Entry 1 Allergies Reviewed? Yes Allergies Reviewed Medical Record With Last Modified By: Talya Dickey 02/22/24 12:03:24 Radiology Protocols/Time Out- US Entry 1 Preprocedure Clinician Verifies Correct patient ID When Clinically Confirmation of correct using name & date Indicated side(s) and site(s), or MRN, Accurate Correct diagnostic and procedure, complete radiology tests Informed Consent, H & P available, Required update immediately blood products, prior to procedure, if implants, devices applicable and/or special equipment available OR/Procedure Room/Bedside Time 02/22/24 12:03:00 Clinician Verifies Correct patient identity including EMR & records using name and date or medical record number, Accurate procedure consent form, Correct patient position, Necessary equipment is available When Applicable Confirmation correct Team Members DOMONIQUE VALERA side and site marked, Present for Time Out Keli RAHMAN Claudia M Relevant images and results are properly labeled and appropriately displayed, Alcohol based prep dry, Double verification of sterility indicators complete Instrument Sterility Procedure US Paracentesis (SN) Last Modified By: Talya Dickey 02/22/24 12:05:12 Skin Prep - US Entry 1 Procedure US Paracentesis (SN) Skin Prep Prep Area Abdomen Side Right By DOMONIQUE VALERA PA-C Prep Agents Chloraprep Hair Removal Method N/A Last Modified By: Talya Dickey 02/22/24 12:06:03 Patient Positioning- US Entry 1 Procedure US Paracentesis (SN) Body Position OP Supine Feet Uncrossed? Yes Pressure Points Yes Checked Last Modified By: Talya Dickey 02/22/24 12:06:49 Radiology Procedure Plan - US Entry 1 Radiology - Nursing Care Plan Radiology - Action Plan Action Plan - Patient demonstrates Outcome Statement knowledge of the expected reseponses to the invasive procedure, Patient's value system, lifestyle, ethnicity, and culture are considered, respected, and incorporated in the perioperative plan of care., Patient is free from signs and symptoms of infection., Patient is free from signs and symptoms of injury related to positioning., Patient receives appropriate medication(s), safely administered during the perioperative period., Patient is free from signs and symptoms of injury caused by extraneous objects (equipment, instrumentation, sponges, or sharps). Outcomes Met? Yes Occ Therapist Talya Dickey Completing Procedure Plan Last Modified By: Talya Dickey 02/22/24 12:14:08 Radiology Lines and Procedures- US Entry 1 Radiology Sedation Case Times Sedation Total Time 0 Radiology - Fluid/Drainage Fluid Amount mL: 2700 Fluid Description yellow serous RAD - [place], Guidewires, Cath.... Catheters OneStep Catheter 5 Fr x Miscellaneous Items Merit Tray 10 cm Radiology Urinary Catheter Radiology Procedure Site Site Condition No complications Dressing Type Bandaids Last Modified By: Talya Dickey 02/22/24 12:31:55 Transfer Post Procedure- US Entry 1 RAD - Transport to Recovery Via Patient Bed Post-op Destination Home Post Procedure Time Out Double Verification Yes Date/Time Verified 02/22/24 12:15:00 of ID band on patient Completed Verfied ID Band on DOMONIQUE VALERA by Keli RAHMAN Claudia M Last Modified By: Talya Dickey 02/22/24 12:15:57 Case Comments Finalized By: Talya Dickey Document Signatures Signed By: Talya Dickey 02/22/24 12:32 [id number] Progress note Date of Service 02/22/2024 Chief Complaint Ascites Subjective Doing about the same. Scheduled to undergo paracentesis today. Objective Vitals and Measurements T: 36.8 C (Oral) TMIN: 36.7 C (Oral) TMAX: 36.9 C (Oral) HR: 96 (Apical) RR: 18 BP: 101/72 SpO2: 97% Intake and Output 7AM Yesterday to 7AM Today Intake and Output (Last 24 hours) Intake Oral Intake 1090.00 Output Stool Count 6.00 Urine Count 6.00 Total Summary Total Intake 1090.00 Total Output 0.00 Fluid Balance 1090.00 Physical Exam Physical exam: Gen/Neuro: AAO X 3 Skin: normal HEENT: PERRL, EOMI. Neck: Supple. Cardiac: RRR, S1/S2 present. Lungs: CTAB Abd: +BS, Soft, mildly distended abdomen with ascites Ext: edema + Weight Dosing Weight: 82.6 kg (02/19/24) Dosing Weight: 80.4 kg (02/17/24) Medications Medications (17) Active Scheduled: (10) budesonide 0.5 mg/2 mL Susp UD 0.5 mg 2 mL, Inhalation, BIDRT famotidine 40 mg tablet 40 mg 1 tab(s), Oral, qDay folic acid 1 mg tablet 1,000 mcg 1 tab(s), Oral, qDay furosemide 40 mg tablet 40 mg 1 tab(s), Oral, qDay gabapentin 300 mg Capsule 300 mg 1 cap(s), Oral, BID lactulose 20 g/30 mL UD cup 10 gram(s) 15 mL, Oral, qHS Nicoderm patch REMOVAL 1 EA, Miscellaneous, q24h nicotine 21 mg/24 hr ER patch 21 mg 1 patch(es), Transdermal, q24h spironolactone 50 mg tablet 50 mg 1 tab(s), Oral, BID thiamine (w/calcium) 100 mg tablet 100 mg 1 tab(s), Oral, qDay Continuous: (0) PRN: (7) albuterol 0.083% Soln UD (2.5mg/3 mL) 2.5 mg 3 mL, Nebulized, q6hr aluminum hydroxide/mag carbonate (Gaviscon) 95 mg-358 mg/15 mL Suspension 15 mL, Oral, pchs dextromethorphan-guaifenesin 10 mg-100 mg/5 mL 120 mL 10 mL, Oral, q4h dextrose 50% Solution Disp syringe 50 mL 12.5 gram(s) 25 mL, IV Push, AsDirected melatonin 3 mg tablet 3 mg 1 tab(s), Oral, qHS melatonin 3 mg tablet 3 mg 1 tab(s), Oral, qHS oxycodone 5 mg tablet (immediate release) 5 mg 1 tab(s), Oral, q6hr Lab Results 02/21 09:09 WBC: 7.0 Hgb: 11.8 L Hct: 34.4 L Platelet: 316 Neutrophil %: 65.3 Glucose Level: 83 Sodium Level: 135 L Potassium Level: 4.4 BUN: 8.0 Creatinine Lvl (s): 0.76 02/20 08:20 WBC: 7.3 Hgb: 11.5 L Hct: 34.0 L Platelet: 283 Neutrophil %: 72.4 Protime: 12.3 PT International Ratio: 1.1 Glucose Level: 84 Sodium Level: 133 L Potassium Level: 3.7 BUN: 6.0 L Creatinine Lvl (s): 0.66 Imaging Results and Diagnostics US Doppler Abdomen Result Date: February 20, 2024 Verified By: KIN ROCHA MD CLINICAL STATEMENT: IMPRESSION: 1. Normal Doppler evaluation of the hepatic veins and portal veins.2. Moderate ascites. US Paracentesis Result Date: February 18, 2024 Verified By: MILADIS POND MD CLINICAL STATEMENT: IMPRESSION: 1. Successful ultrasound guided paracentesis. Procedure was performed by Amina Guzman PA-C under direct supervision ofDomonique Valera PA-C I concur with the contents of this report. CT Abd/Pelvis w/ IV Contrast Only Result Date: February 17, 2024 Verified By: MARC LANIER MD CLINICAL STATEMENT: IMPRESSION: Moderate ascites. 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 Anasarca. Generalized wall thickening/edema of the colon which could be accentuated byits relatively decompressed state, submucosal fat deposition orascites/portal hypertension, unless there is a clinical concern forunderlying infectious or inflammatory colitis. EKG No qualifying data available. Assessment/Plan Problem list: Ascites likely secondary to underlying portal hypertension from possible alcoholic liver disease. Concern for possible alcoholic hepatitis/alcoholic liver cirrhosis. No overt signs of GI bleed. Anemia stable. No evidence of hepatic encephalopathy. Ammonia levels are within normal limits Recent imaging was negative for focal liver lesions. No recent AFP. No prior endoscopy or colonoscopy. Immunization status for hepatitis A is unknown. Not immune to hepatitis B. Low ceruloplasmin levels Plan: Scheduled to undergo paracentesis today. Anticipate discharge home later today on Lasix 40 mg and Aldactone 100 mg. Follow-up labs CBC and CMP in 1 week. Low-salt diet. 24-hour urine copper will be addressed in the outpatient setting. Other. Blood work will be reviewed in the outpatient setting. We will sign off. Discussed with primary team. Please call us back if needed. Patient verbalized understanding of plan Digitally Signed by AUBRIE BIRMINGHAM MD on 02/22/2024 11:26 AM [id number] Note* Exam Date Time Procedure Performing Provider Status 02/22/24 6:48 AM VL Arterial Dopplers Both Legs Rest/PVR- Auth (Verified) [facility] 09-29-2024 Respiratory therapy Hospital Progress note Respiratory Therapy Evaluation Entered On: 02/21/2024 12:05 EDT Performed On: 02/21/2024 12:05 EDT by Lisette Morley Respiratory Therapy Evaluation Chest X-Ray : Clear/none available/older than 3 days Respiratory Pattern (RT) : RR 10-20 BPM, Regular pattern Breath Sounds (RT) : Clear to auscultation Cough (RT) : Strong, non-productive Level of Activity : Ambulatory Mental Status : Alert, oriented and cooperative Respiratory Therapy Evaluation Score : 2 RT Evaluation Steps : Chart review completed, Assessment completed: RR, HR, Auscultation, Cough, Patient Interview completed Respiratory Evaluation Triage Score : (0-5) Freq: Q4RT prn RT Assessment [Frequency/Schedule] : Triage score 0-5, modify scheduled medications to Q4hRT PRN Lisette Morley RT - 02/21/2024 12:06 EDT Pulmonary Status : Current smoker Surgical Status : No surgery Lisette Morley RT - 02/21/2024 12:05 EDT Digitally Signed by Lisette Morley on 02/21/2024 12:06 PM [id number] Note Date of Service February 21, 2024 Subjective Patient is a 58-year-old gentleman was admitted on February 18, 2024 for worsening pedal edema/abdominal distention x 2 weeks duration, found to have significant ascites for which he underwent large-volume paracentesis with analysis being negative for SBP (high SAAG ascites, in line with diagnosisof alcoholic cirrhosis) ad is currently undergoing volume optimization with diuretics prior to being discharged home. Saw patient at bedside this morning. Complaining of worsening abdominal distention. Denies any worsening SOB/pedal edema. Does not have a PCP and wants to talk to special education case manager to have an appointment set up prior to being discharged. Objective Vitals and Measurements T: 36.7 C (Oral) TMIN: 36.3 C (Oral) TMAX: 36.7 C (Oral) HR: 89 RR: 18 BP: 106/74 SpO2: 94% Intake and Output 7AM Yesterday to 7AM Today Intake and Output (Last 24 hours) Intake Oral Intake 180.00 Output Stool Count 0.00 Urine Count 3.00 Total Summary Total Intake 180.00 Total Output 0.00 Fluid Balance 180.00 Physical Exam GENERAL APPEARANCE: Lying on bed; _ SKIN: Warm EXTREMITIES: No cyanosis/clubbing. 2+ pedal edema HEENT: PERRL, EOMI. JVD not elevated NECK: Supple. Trachea is midline. CHEST: Symmetric. Nontender to palpation. LUNGS: Mildly diminished breath sounds in the bases HEART: RRR, S1, S2 +. No murmurs, gallops, or rubs. ABDOMEN: Distended. No organomegaly. NEUROLOGIC: A&O, moving all four extremities. Weight Dosing Weight: 82.6 kg (02/19/24) Dosing Weight: 80.4 kg (02/17/24) Medications Medications (18) Active Scheduled: (11) budesonide 0.5 mg/2 mL Susp UD 0.5 mg 2 mL, Inhalation, BIDRT folic acid 1 mg tablet 1,000 mcg 1 tab(s), Oral, qDay furosemide 40 mg tablet 40 mg 1 tab(s), Oral, qDay gabapentin 300 mg Capsule 300 mg 1 cap(s), Oral, BID lactulose 20 g/30 mL UD cup 10 gram(s) 15 mL, Oral, qHS Nicoderm patch REMOVAL 1 EA, Miscellaneous, q24h nicotine 21 mg/24 hr ER patch 21 mg 1 patch(es), Transdermal, q24h pantoprazole 40 mg EC tablet 40 mg 1 tab(s), Oral, qDayAC sodium ferric gluconate complex 250 mg 20 mL, IV Piggyback, qDay spironolactone 50 mg tablet 50 mg 1 tab(s), Oral, BID thiamine (w/calcium) 100 mg tablet 100 mg 1 tab(s), Oral, qDay Continuous: (0) PRN: (7) albuterol 0.083% Soln UD (2.5mg/3 mL) 2.5 mg 3 mL, Nebulized, q6hr aluminum hydroxide/mag carbonate (Gaviscon) 95 mg-358 mg/15 mL Suspension 15 mL, Oral, pchs dextromethorphan-guaifenesin 10 mg-100 mg/5 mL 120 mL 10 mL, Oral, q4h dextrose 50% Solution Disp syringe 50 mL 12.5 gram(s) 25 mL, IV Push, AsDirected melatonin 3 mg tablet 3 mg 1 tab(s), Oral, qHS melatonin 3 mg tablet 3 mg 1 tab(s), Oral, qHS oxycodone 5 mg tablet (immediate release) 5 mg 1 tab(s), Oral, q6hr Lab Results 02/20 08:20 WBC: 7.3 Hgb: 11.5 L Hct: 34.0 L Platelet: 283 Neutrophil %: 72.4 Protime: 12.3 PT International Ratio: 1.1 Glucose Level: 84 Sodium Level: 133 L Potassium Level: 3.7 BUN: 6.0 L Creatinine Lvl (s): 0.66 02/19 10:27 WBC: 7.6 Hgb: 12.5 L Hct: 36.7 L Platelet: 283 Neutrophil %: 76.9 H 02/19 09:05 Glucose Level: 89 Sodium Level: 136 Potassium Level: 3.9 BUN: 6.0 L Creatinine Lvl (s): 0.69 EKG No qualifying data available. Assessment/Plan Decompensated, alcoholic liver cirrhosis (Child Avalos Class B) History of alcohol abuse (last drink 3 weeks ago) Anemia, multifactorial (cirrhosis/iron deficiency/folate deficiency) Tobacco use disorder Plan: Discussed care plan with patient and with gastroenterology who was also in room during our encounter. We will continue with Lasix 40 mg daily/Aldactone 100 mg daily for now with GI planning to uptitrate dose of medications as an outpatient. Will order repeat US paracentesis for symptomatic management of ascites. Cirrhosis workup labs (viral hepatitis panel/HIV) have been negative so far. AFP levels within normal limits. Rest of lab reports are pending. Iron levels are low, have ordered IV Ferrlecit x 3 doses. From a disposition standpoint, patient will need to have an appointment set up with PCP before leaving the hospital as he will need follow-up of his labs post discharge and for a standing paracentesis order to be placed, failing which he'll be at a high risk of readmission. Case management on boardfor setting up PCP/GI appointments prior to discharge. Digitally Signed by JAYJAY PATEL MD on 02/21/2024 11:34 AM [id number] G[facility] Progress note Date of Service 02/21/2024 Chief Complaint Alcoholic liver disease/cirrhosis Subjective Patient seen and examined. Is about the same. Denies any new complaints Objective Vitals and Measurements T: 36.7 C (Oral) TMIN: 36.3 C (Oral) TMAX: 36.7 C (Oral) HR: 89 RR: 18 BP: 106/74 SpO2: 94% Intake and Output 7AM Yesterday to 7AM Today Intake and Output (Last 24 hours) Intake Oral Intake 180.00 Output Stool Count 0.00 Urine Count 3.00 Total Summary Total Intake 180.00 Total Output 0.00 Fluid Balance 180.00 Physical Exam Physical exam: Gen/Neuro: AAO X 3 Skin: normal HEENT: PERRL, EOMI. Neck: Supple. Cardiac: S1/S2 present. Lungs: CTAB Abd: +BS, Soft, NT/ND. Distended abdomen with ascites Ext: edema ++ Weight Dosing Weight: 82.6 kg (02/19/24) Dosing Weight: 80.4 kg (02/17/24) Medications Medications (18) Active Scheduled: (11) budesonide 0.5 mg/2 mL Susp UD 0.5 mg 2 mL, Inhalation, BIDRT folic acid 1 mg tablet 1,000 mcg 1 tab(s), Oral, qDay furosemide 40 mg tablet 40 mg 1 tab(s), Oral, qDay gabapentin 300 mg Capsule 300 mg 1 cap(s), Oral, BID lactulose 20 g/30 mL UD cup 10 gram(s) 15 mL, Oral, qHS Nicoderm patch REMOVAL 1 EA, Miscellaneous, q24h nicotine 21 mg/24 hr ER patch 21 mg 1 patch(es), Transdermal, q24h pantoprazole 40 mg EC tablet 40 mg 1 tab(s), Oral, qDayAC sodium ferric gluconate complex 250 mg 20 mL, IV Piggyback, qDay spironolactone 50 mg tablet 50 mg 1 tab(s), Oral, BID thiamine (w/calcium) 100 mg tablet 100 mg 1 tab(s), Oral, qDay Continuous: (0) PRN: (7) albuterol 0.083% Soln UD (2.5mg/3 mL) 2.5 mg 3 mL, Nebulized, q6hr aluminum hydroxide/mag carbonate (Gaviscon) 95 mg-358 mg/15 mL Suspension 15 mL, Oral, pchs dextromethorphan-guaifenesin 10 mg-100 mg/5 mL 120 mL 10 mL, Oral, q4h dextrose 50% Solution Disp syringe 50 mL 12.5 gram(s) 25 mL, IV Push, AsDirected melatonin 3 mg tablet 3 mg 1 tab(s), Oral, qHS melatonin 3 mg tablet 3 mg 1 tab(s), Oral, qHS oxycodone 5 mg tablet (immediate release) 5 mg 1 tab(s), Oral, q6hr Lab Results 02/20 08:20 WBC: 7.3 Hgb: 11.5 L Hct: 34.0 L Platelet: 283 Neutrophil %: 72.4 Protime: 12.3 PT International Ratio: 1.1 Glucose Level: 84 Sodium Level: 133 L Potassium Level: 3.7 BUN: 6.0 L Creatinine Lvl (s): 0.66 02/19 10:27 WBC: 7.6 Hgb: 12.5 L Hct: 36.7 L Platelet: 283 Neutrophil %: 76.9 H 02/19 09:05 Glucose Level: 89 Sodium Level: 136 Potassium Level: 3.9 BUN: 6.0 L Creatinine Lvl (s): 0.69 Imaging Results and Diagnostics US Doppler Abdomen Result Date: February 20, 2024 Verified By: AJ IRAHETA, KIN Dawson CLINICAL STATEMENT: IMPRESSION: 1. Normal Doppler evaluation of the hepatic veins and portal veins.2. Moderate ascites. US Paracentesis Result Date: February 18, 2024 Verified By: MILADIS POND MD CLINICAL STATEMENT: IMPRESSION: 1. Successful ultrasound guided paracentesis. Procedure was performed by Amina Guzman PA-C under direct supervision ofDomonique Valera PA-C I concur with the contents of this report. CT Abd/Pelvis w/ IV Contrast Only Result Date: February 17, 2024 Verified By: MARC LANIER MD CLINICAL STATEMENT: IMPRESSION: Moderate ascites. 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 Anasarca. Generalized wall thickening/edema of the colon which could be accentuated byits relatively decompressed state, submucosal fat deposition orascites/portal hypertension, unless there is a clinical concern forunderlying infectious or inflammatory colitis. XR Chest 1 View Result Date: February 17, 2024 Verified By: DAMON MADISON DO CLINICAL STATEMENT: IMPRESSION: No definite acute cardiopulmonary process by radiograph. I have personally reviewed theimages of this examination and agree with theresident's findings and interpretation. EKG No qualifying data available. Assessment/Plan Orders: [id number]), 02/21/24 6:00:00 EDT, Next AM Draw (one day only), Blood, Once, Stop date 02/21/24 6:00:00 EDT NOEMI by IFA Screen, 02/21/24 5:00:00 EDT, Next AM Draw (one day only), Blood, Once, Stop date 02/21/24 5:00:00 EDT Ceruloplasmin, 02/21/24 5:00:00 EDT, Next AM Draw (one day only), Blood, Once, Stop date 02/21/24 5:00:00 EDT Hepatitis A Antibody IgG, 02/21/24 5:00:00 EDT, Next AM Draw (one day only), Blood, Once, Stop date02/21/24 5:00:00 EDT Mitochondrial Antibody, 02/21/24 5:00:00 EDT, Next AM Draw (one day only), Blood, Once, Stop date 02/21/24 5:00:00 EDT Smooth Muscle Antibody Screen, 02/21/24 5:00:00 EDT, Next AM Draw (one day only), Blood, Once, Stopdate 02/21/24 5:00:00 EDT Tissue Transglutaminase Ab (IGA), 02/21/24 5:00:00 EDT, Next AM Draw (one day only), Blood, Once, Stop date 02/21/24 5:00:00 EDT Anticipated Date of Discharge Problem list: Ascites likely secondary to underlying portal hypertension from possible alcoholic liver disease. Concern for possible alcoholic hepatitis/alcoholic liver cirrhosis. No overt signs of GI bleed. Anemia stable. No evidence of hepatic encephalopathy. Ammonia levels are within normal limits Recent imaging was negative for focal liver lesions. No recent AFP. No prior endoscopy or colonoscopy. Immunization status for hepatitis A and B is unknown. Plan: In the last 24 hours he underwent workup which showed ferritin 244, iron saturation is 18, AFP is within normal limits, viral hepatitis panel is negative. Ultrasound Dopplers was negative for portal vein thrombosis. 2D echo done during this hospitalization was negative for congestive heart failure. Patient's BNP levels are elevated. He continues to do reasonably well. Discussed with the primary team about discharging him home on Lasix 40 mg and Aldactone 100 mg daily. CBC CMP and INR in 1 week. Low-salt diet. Alcohol cessation Famotidine 40 mg daily for GI prophylaxis. He will benefit with outpatient follow-up. Rest of the pending results will be reviewed in the outpatient office visit. Anticipate discharge in the next 24 hours. We will sign off. Please call us back if needed Digitally Signed by AUBRIE BIRMINGHAM MD on 02/21/2024 11:18 AM [id number] Note ORIGINAL EXAMINATION: Doppler ultrasound of the liver. 02/20/2024 3:40 pm COMPARISON: CT abdomen and pelvis on 02/17/2024 HISTORY: ORDERING SYSTEM PROVIDED HISTORY: Reason for Exam: Budd Chiari FINDINGS: Permanently stored images reviewed. Hepatic veins in the liver are patent and demonstrate normal flow. There is normal flow in the inferior vena cava also. Main portal vein demonstrates hepatopetal flow. Main portal vein diameter is 9 mm, increasing to 11 mm with inspiration. There is normal flow in the right and left portal veins. There is moderate generalized ascites. IMPRESSION: 1. Normal Doppler evaluation of the hepatic veins and portal veins. 2. Moderate ascites. Interpreted by: Kin Rocha MD Preliminary Report By: Kin Rocha MD Electronically signed By Kin Rocha MD Dictated Date: 02/21/2024 12:00:16 AM Prelim Date: 02/21/2024 12:04:14 AM Sign Date: 02/21/2024 12:04:14 AM Ordering Provider: AUBRIE [facility]09-28-2024 Note Date of Service February 20, 2024 Subjective Patient is a 58-year-old gentleman was admitted on February 18, 2024 for worsening pedal edema/abdominal distention x 2 weeks duration, found to have significant ascites for which he underwent large-volume paracentesis with analysis being negative for SBP (high SAAG ascites, in line with diagnosisof alcoholic cirrhosis) ad is currently undergoing volume optimization with IV/p.o. diuretics priorto being discharged home. At the time of encounter this morning, patient was lying comfortably in his bed, not in distress. He endorses exertional SOB on walking around. Denies orthopnea/PND/chest pain. Reports significant improvement in his pedal edema since admission. Objective Vitals and Measurements T: 36.6 C (Oral) TMIN: 36.6 C (Oral) TMAX: 36.7 C (Oral) HR: 88 RR: 16 BP: 111/79 SpO2: 93% HT: 177.8 cm WT: 82.6 kg BMI: 26.13 Intake and Output 7AM Yesterday to 7AM Today Intake and Output (Last 24 hours) Intake Oral Intake 800.00 Supplement Intake 200.00 Output Stool Count 1.00 Urine Count 6.00 Total Summary Total Intake 1000.00 Total Output 0.00 Fluid Balance 1000.00 Physical Exam GENERAL APPEARANCE: Lying on bed; _ SKIN: Warm EXTREMITIES: No cyanosis/clubbing. 2+ pedal edema HEENT: PERRL, EOMI. JVD not elevated NECK: Supple. Trachea is midline. CHEST: Symmetric. Nontender to palpation. LUNGS: Mildly diminished breath sounds in the bases HEART: RRR, S1, S2 +. No murmurs, gallops, or rubs. ABDOMEN: Soft. No organomegaly. NEUROLOGIC: A&O, moving all four extremities. Weight Dosing Weight: 82.6 kg (02/19/24) Dosing Weight: 80.4 kg (02/17/24) Medications Medications (18) Active Scheduled: (11) budesonide 0.5 mg/2 mL Susp UD 0.5 mg 2 mL, Inhalation, BIDRT folic acid 1 mg tablet 1,000 mcg 1 tab(s), Oral, qDay furosemide 40 mg tablet 40 mg 1 tab(s), Oral, qDay furosemide 40 mg/4 mL vial 40 mg 4 mL, IV Push, qDay gabapentin 300 mg Capsule 300 mg 1 cap(s), Oral, BID lactulose 20 g/30 mL UD cup 10 gram(s) 15 mL, Oral, qHS magnesium sulfate PMX 2 gram(s) 50 mL, IV Piggyback, Once Nicoderm patch REMOVAL 1 EA, Miscellaneous, q24h nicotine 21 mg/24 hr ER patch 21 mg 1 patch(es), Transdermal, q24h pantoprazole 40 mg EC tablet 40 mg 1 tab(s), Oral, qDayAC spironolactone 50 mg tablet 50 mg 1 tab(s), Oral, BID Continuous: (0) PRN: (7) albuterol 0.083% Soln UD (2.5mg/3 mL) 2.5 mg 3 mL, Nebulized, q6hr aluminum hydroxide/mag carbonate (Gaviscon) 95 mg-358 mg/15 mL Suspension 15 mL, Oral, pchs dextromethorphan-guaifenesin 10 mg-100 mg/5 mL 120 mL 10 mL, Oral, q4h dextrose 50% Solution Disp syringe 50 mL 12.5 gram(s) 25 mL, IV Push, AsDirected melatonin 3 mg tablet 3 mg 1 tab(s), Oral, qHS melatonin 3 mg tablet 3 mg 1 tab(s), Oral, qHS oxycodone 5 mg tablet (immediate release) 5 mg 1 tab(s), Oral, q6hr Lab Results 02/19 10:27 WBC: 7.6 Hgb: 12.5 L Hct: 36.7 L Platelet: 283 Neutrophil %: 76.9 H 02/19 09:05 Glucose Level: 89 Sodium Level: 136 Potassium Level: 3.9 BUN: 6.0 L Creatinine Lvl (s): 0.69 02/18 05:21 WBC: 5.8 Hgb: 11.7 L Hct: 33.9 L Platelet: 270 Neutrophil %: 56.3 Protime: 12.6 PT International Ratio: 1.1 Glucose Level: 85 Sodium Level: 139 Potassium Level: 3.4 L BUN: <5.0 L Creatinine Lvl (s): 0.74 EKG No qualifying data available. Assessment/Plan Decompensated, alcoholic liver cirrhosis (Child Avalos Class B) History of alcohol abuse (last drink 3 weeks ago) Anemia, multifactorial (cirrhosis/iron deficiency/folate deficiency) Tobacco use disorder Plan: Will transition patient from IV Lasix to p.o. Lasix 40 mg daily starting tomorrow. Will go up on Aldactone to 50 mg p.o. BID. Will dose IV albumin 25 g x 1 today to help in augmenting intravascular volume and diuresis. Will obtain workup for secondary causes of cirrhosis (HBsAg/HCV/NOEMI/ferritin) and also obtain serumAFP levels to rule out malignant transformation. Patient lives in [place], [place] and will need to establish care with gastroenterology going forward for his underlying cirrhosis and for outpatient EGD to screen for esophageal varices. Will consult gastroenterology to establish care and for additional workup. Spoke to patient's daughter on the phone today who was agreeable to the plan. Digitally Signed by JAYJAY PATEL MD on 02/20/2024 03:19 PM Digitally Signed by JAYJAY PATEL MD on 02/20/2024 03:48 PM [id number]astro[facility]ology Consult note Date of Service 02/20/2024 Reason for Consultation Alcoholic liver disease and ascites Referring Physician Hospitalist History of Present Illness This is a 58-year-old male with past medical history significant for alcohol use, tobacco use, recently seen at [facility] for ascites and pedal edema. He was discharged home on [id number] mg daily. He comes to our hospital with progressively worsening pedal edema and increasing abdominal distention and scrotal edema. He denies any overt signs of GI bleed. He gives history of significant alcoholuse and drinks about 8 beers per day on a regular basis since he was about [age] years old. The lasttime he saw a PCP was more than 3 years ago. Does not follow-up with healthcare professional on a re gular basis. He was hospitalized in our institution on February 17, 2024. Since his hospitalization, he got a CT scan, ultrasound-guided paracentesis and approximately 5500 cc was drained. Fluid analysis is consistent with portal hypertension resulting from possible liver cirrhosis. Platelet countis within normal limits. Ammonia is within normal limits. Low folate levels. B12 is within normal limits. Hemoglobin 12.7-macrocytic. Platelet count 283. Elevated LFTs predominantly alk phos but restof the LFTs were within normal limits. Albumin is 2.0. He stopped drinking alcohol for approximately a month now. He is not undergoing any withdrawal symptoms. No family history of liver disease in the immediate family members. Has tattoos done previously. Norecent workup for viral hepatitis panel or comprehensive liver workup in the recent past. Is currently being treated with IV Lasix and albumin and has responded very well to current diuretic therapy.His swelling has come down. He feels better. His appetite has returned. He denies any melena or bleeding per rectum. No prior history of colonoscopy or endoscopy. Denies any changes in his mental status. No hematemesis. Review of Systems All 10 systems have been reviewed and pertinent positives and negatives are included in the HPI Physical Exam Vitals and Measurements T: 36.6 C (Oral) TMIN: 36.6 C (Oral) TMAX: 36.7 C (Oral) HR: 88 RR: 16 BP: 111/79 SpO2: 93% HT: 177.8 cm WT: 82.6 kg BMI: 26.13 Weight Dosing Weight: 82.6 kg (02/19/24) Dosing Weight: 80.4 kg (02/17/24) Physical exam: Gen/Neuro: AAO X 3 Skin: normal HEENT: PERRL, EOMI. Neck: Supple. Cardiac: RRR, S1/S2 present. Lungs: CTAB Abd: +BS, Soft, NT/ND. Positive for ascites Ext: edema + Lab Results 02/19 10:27 WBC: 7.6 Hgb: 12.5 L Hct: 36.7 L Platelet: 283 Neutrophil %: 76.9 H 02/19 09:05 Glucose Level: 89 Sodium Level: 136 Potassium Level: 3.9 BUN: 6.0 L Creatinine Lvl (s): 0.69 02/18 05:21 WBC: 5.8 Hgb: 11.7 L Hct: 33.9 L Platelet: 270 Neutrophil %: 56.3 Protime: 12.6 PT International Ratio: 1.1 Glucose Level: 85 Sodium Level: 139 Potassium Level: 3.4 L BUN: <5.0 L Creatinine Lvl (s): 0.74 Imaging Results and Diagnostics US Paracentesis Result Date: February 18, 2024 Verified By: MILADIS POND MD CLINICAL STATEMENT: IMPRESSION: 1. Successful ultrasound guided paracentesis. Procedure was performed by Amina Guzman PA-C under direct supervision ofDomonique Valera PA-C I concur with the contents of this report. CT Abd/Pelvis w/ IV Contrast Only Result Date: February 17, 2024 Verified By: MARC LANIER MD CLINICAL STATEMENT: IMPRESSION: Moderate ascites. 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 Anasarca. Generalized wall thickening/edema of the colon which could be accentuated byits relatively decompressed state, submucosal fat deposition orascites/portal hypertension, unless there is a clinical concern forunderlying infectious or inflammatory colitis. Assessment/Plan Orders: [id number]), 02/21/24 6:00:00 EDT, Next AM Draw (one day only), Blood, Once, Stop date 02/21/24 6:00:00 EDT Acute Hepatitis Panel(Hepatitis Acute Panel), 02/21/24 5:00:00 EDT, Next AM Draw (one day only), Blood, Once, Stop date 02/21/24 5:00:00 EDT AFP tumor marker, 02/21/24 5:00:00 EDT, Next AM Draw (one day only), Blood, Once, Stop date 02/21/24 5:00:00 EDT NOEMI by IFA Screen, 02/21/24 5:00:00 EDT, Next AM Draw (one day only), Blood, Once, Stop date 02/21/24 5:00:00 EDT Ceruloplasmin, 02/21/24 5:00:00 EDT, Next AM Draw (one day only), Blood, Once, Stop date 02/21/24 5:00:00 EDT Ferritin, 02/21/24 6:00:00 EDT, Next AM Draw (one day only), Blood, Once, Stop date 02/21/24 6:00:00 EDT Hepatitis A Antibody IgG, 02/21/24 5:00:00 EDT, Next AM Draw (one day only), Blood, Once, Stop date02/21/24 5:00:00 EDT Hepatitis B Surface Ab, 02/21/24 6:00:00 EDT, Next AM Draw (one day only), Blood, Once, Stop date 02/21/24 6:00:00 EDT IgA, 02/20/24 14:09:00 EDT, Routine, Blood, Once, Stop date 02/20/24 16:00:00 EDT IgG, 02/21/24 5:00:00 EDT, Next AM Draw (one day only), Blood, Once, Stop date 02/21/24 5:00:00 EDT Iron Studies, 02/21/24 6:00:00 EDT, Next AM Draw (one day only), Blood, Once, Stop date 02/21/24 6:00:00 EDT Mitochondrial Antibody, 02/21/24 5:00:00 EDT, Next AM Draw (one day only), Blood, Once, Stop date 02/21/24 5:00:00 EDT Prothrombin Time - Panel(INR/PT), 02/21/24 5:01:00 EDT, Next AM Draw (one day only), Blood, Once, Stop date 02/21/24 5:01:00 EDT Smooth Muscle Antibody Screen, 02/21/24 5:00:00 EDT, Next AM Draw (one day only), Blood, Once, Stopdate 02/21/24 5:00:00 EDT Tissue Transglutaminase Ab (IGA), 02/21/24 5:00:00 EDT, Next AM Draw (one day only), Blood, Once, Stop date 02/21/24 5:00:00 EDT Problem list: Ascites likely secondary to underlying portal hypertension from possible alcoholic liver disease. Concern for possible alcoholic hepatitis/alcoholic liver cirrhosis. No overt signs of GI bleed. Anemia stable. No evidence of hepatic encephalopathy. Ammonia levels are within normal limits Recent imaging was negative for focal liver lesions. No recent AFP. No prior endoscopy or colonoscopy. Immunization status for hepatitis A and B is unknown. Plan: 2D echo done during this hospitalization was negative for congestive heart failure. Patient's BNP levels are elevated. He is currently being treated with IV Lasix and albumin per primary team. Recommend discontinuing IV diuretic therapy and transition him to p.o. Lasix 40 mg +100 mg Aldactone and titrate the dose as needed while monitoring his blood work and electrolytes. We discussed about the importance of low-salt diet. Ultrasound Dopplers to rule out portal vein thrombosis. Recent CT reviewed with no focal liver lesions. He would likely benefit with endoscopy and colonoscopy in the outpatient setting further evaluationof anemia and screening for varices. Comprehensive liver workup as outlined above. We discussed about the importance of outpatient follow-up. He verbalized understanding of the plan. Will continue to follow Procedure/Surgical History No qualifying data available. Medications Inpatient albumin human 25% intravenous solution, 25 gram(s)= 100 mL, IV Piggyback (MED), Once albuterol 2.5 mg/3 mL (0.083%) inhalation solution, 2.5 mg= 3 mL, Nebulized, q6hr, PRN Aldactone, 50 mg= 1 tab(s), Oral, BID budesonide 0.5 mg/2 mL inhalation suspension, 0.5 mg= 2 mL, Inhalation, BIDRT dextromethorphan-guaifenesin 10 mg-100 mg/5 mL oral liquid, 10 mL, Oral, q4h, PRN Dextrose 50% IV Push, 12.5 gram(s)= 25 mL, IV Push, AsDirected, PRN folic acid, 1000 mcg= 1 tab(s), Oral, qDay gabapentin, 300 mg= 1 cap(s), Oral, BID Gaviscon Regular Strength 95 mg-358 mg/15 mL oral suspension, 15 mL, Oral, pchs, PRN lactulose, 10 gram(s)= 15 mL, Oral, qHS Lasix, 40 mg= 1 tab(s), Oral, BID Lasix, 40 mg= 4 mL, IV Push, qDay magnesium sulfate for IV bolus, 2 gram(s)= 50 mL, IV Piggyback, Once melatonin, 3 mg= 1 tab(s), Oral, qHS, PRN melatonin, 3 mg= 1 tab(s), Oral, qHS, PRN Nicoderm C-Q 21 mg/24 hr transdermal film, extended release, 21 mg= 1 patch(es), Transdermal, q24h nicotine (Nicoderm Patch REMOVAL), 1 EA, Miscellaneous, q24h oxyCODONE 5 mg oral tablet ( IMMEDIATE release ), 5 mg= 1 tab(s), Oral, q6hr, PRN Protonix, 40 mg= 1 tab(s), Oral, qDayAC Home albuterol 2.5 mg/3 mL (0.083%) inhalation solution, 2.5 mg= 3 mL, Nebulized, q6hr, PRN spironolactone 25 mg oral tablet, 25 mg= 1 tab(s), Oral, qDay Allergies NKA Social History Alcohol Use: Current. Type: Beer. Frequency: Daily., 02/17/2024 Tobacco Nicotine Use: 5-9 cigarettes (between 1/4 to 1/2 pack)/day in last 30 days. Type: Cigarettes. Tobacco use per day: 7. Number of years: 40. Started at age: 14 Years. Previous treatment: None. Ready tochange: No., 02/17/2024 Immunizations No qualifying data available. Digitally Signed by AUBRIE BIRMINGHAM MD on 02/20/2024 02:22 PM [id number] Note Date of Service 02/19/2024 Chief Complaint Anasarca, lower extremity pain Subjective 58-year-old with history of tobacco use, EtOH abuse recently discharged from [facility] presumably for decompensated cirrhosis who now presents with anasarca. In the emergency department he wasinitially tachycardic at 105. BP stable. Saturating adequately on room air. CBC with macrocytic anemia. Hemoglobin 12.7, MCV 111.7. Urinalysis is not concerning for infection. CMP with alk phos 131, albumin 2.2. Globulin 4.1. BNP elevated 1059. Troponin normal. Ammonia undetectable. CT abdomen pelvis shows moderate ascites. Fibrotic/cirrhotic morphology of the liver. Anasarca. Wall thickening of the colon may be due to decompressed state. Presently, there is low to no suspicion for colitis. CXRshows no definite acute intrathoracic process. Patient was admitted for management of anasarca given dose of diuretic. Patient has been ordered for paracentesis and lower extremity Doppler. Lower extremity Doppler negative for DVT. 5 L removed by paracentesis. Patient still fluid overloaded we willcontinue with IV diuresis. PT consulted for dispo recs. Patient is seen and examined Patient complaining of bilateral lower extremity pain. Pain is described as gnawing. He states that pain is worse with touch. No fevers chills or signs of cellulitis. Discussed treatment plan with patient at bedside answered all questions. Objective Vitals and Measurements T: 36.6 C (Oral) HR: 95 RR: 16 BP: 108/73 SpO2: 94% Intake and Output 7AM Yesterday to 7AM Today Intake and Output (Last 24 hours) Intake Oral Intake 920.00 Output Other Output 5050.00 Urine Voided 200.00 Stool Count 0.00 Urine Count 6.00 Emesis Count 0.00 Total Summary Total Intake 920.00 Total Output 5250.00 Fluid Balance -4330.00 Physical Exam Awake alert oriented x 4 cranial nerves intact speech is fluent and clear moving limbs Lungs clear to auscultation Normal S1-S2 no MRG Abdomen obese soft nondistended nontender Lower extremities are edematous nontender to light palpation not warm not erythematous. Patient does have ulcers on anterior shins. Weight Dosing Weight: 82.6 kg (02/18/24) Dosing Weight: 80.4 kg (02/17/24) Medications Medications (16) Active Scheduled: (9) budesonide 0.5 mg/2 mL Susp UD 0.5 mg 2 mL, Inhalation, BIDRT folic acid 1 mg tablet 1,000 mcg 1 tab(s), Oral, qDay furosemide 20 mg/2 mL vial 20 mg 2 mL, IV Push, Once furosemide 40 mg/4 mL vial 40 mg 4 mL, IV Push, qDay gabapentin 300 mg Capsule 300 mg 1 cap(s), Oral, BID Nicoderm patch REMOVAL 1 EA, Miscellaneous, q24h nicotine 21 mg/24 hr ER patch 21 mg 1 patch(es), Transdermal, q24h pantoprazole 40 mg EC tablet 40 mg 1 tab(s), Oral, qDayAC spironolactone 50 mg tablet 50 mg 1 tab(s), Oral, qDayM Continuous: (0) PRN: (7) albuterol 0.083% Soln UD (2.5mg/3 mL) 2.5 mg 3 mL, Nebulized, q6hr aluminum hydroxide/mag carbonate (Gaviscon) 95 mg-358 mg/15 mL Suspension 15 mL, Oral, pchs dextromethorphan-guaifenesin 10 mg-100 mg/5 mL 120 mL 10 mL, Oral, q4h dextrose 50% Solution Disp syringe 50 mL 12.5 gram(s) 25 mL, IV Push, AsDirected melatonin 3 mg tablet 3 mg 1 tab(s), Oral, qHS melatonin 3 mg tablet 3 mg 1 tab(s), Oral, qHS oxycodone 5 mg tablet (immediate release) 5 mg 1 tab(s), Oral, q6hr Lab Results 02/18 05:21 WBC: 5.8 Hgb: 11.7 L Hct: 33.9 L Platelet: 270 Neutrophil %: 56.3 Protime: 12.6 PT International Ratio: 1.1 Glucose Level: 85 Sodium Level: 139 Potassium Level: 3.4 L BUN: <5.0 L Creatinine Lvl (s): 0.74 02/17 12:04 WBC: 6.2 Hgb: 11.6 L Hct: 33.5 L Platelet: 295 Neutrophil %: 72.8 Glucose Level: 81 Sodium Level: 139 Potassium Level: 3.7 BUN: <5.0 L Creatinine Lvl (s): 0.67 EKG No qualifying data available. Assessment/Plan Anasarca Anasarca/bilateral lower extremity edema/pain Cirrhosis with symptomatic ascites History of tobacco use History of EtOH abuse Macrocytic anemia-folate deficiency Plan Patient presents with anasarca. Will continue with diuresis. Paracentesis was performed 5 L removednot consistent with SBP. TTE was obtained normal EF IVC is not dilated. Lower extremity duplex negative for DVT. Will continue with IV diuresis give patient additional dose of Lasix this afternoon. Low-salt diet 2 L fluid restriction. Patient with macrocytic anemia folate levels are low we will start folate supplementation. On 02/17 patient was wheezing no hypoxia did start budesonide and continue as needed albuterol. Patient endorsing > [id number] smoking history. No edema on chest x-ray. Patient will need follow-up with pulmonology for PFTs. Wheezing is better today. Patient complaining of lower extremity pain. Could be due to edema vs neuropathic however patient does have ulcers on anterior mccauley. Will obtain arterial Dopplers to rule out peripheral vascular disease given smoking history. Start trial of gabapentin. Follow PT OT recommendations. Barrier to discharge-patient needs further diuresis. Level of Care Indication Regular Floor DVT Prophylaxis Other: specify in note Maintenance IVF Indication NA / No maintenance IVF Indwelling Urinary Catheter Indication NA No indwelling catheter Anticipated Timeline of Discharge 24 hours Anticipated DC Disposition Pending Therapy Evaluation Orders: aluminum hydroxide-magnesium carbonate(Gaviscon Regular Strength 95 mg-358 mg/15 mL oral suspension), 15 mL, Oral, pchs, PRN budesonide(budesonide 0.5 mg/2 mL inhalation suspension), 0.5 mg= 2 mL, Inhalation, BIDRT dextromethorphan-guaifenesin(dextromethorphan-guaifenesin 10 mg-100 mg/5 mL oral liquid), 10 mL, Oral, q4h, PRN folic acid, 1000 mcg= 1 tab(s), Oral, qDay furosemide(Lasix), 20 mg= 2 mL, IV Push, Once furosemide(Lasix), 40 mg= 4 mL, IV Push, qDay gabapentin, 300 mg= 1 cap(s), Oral, BID nicotine(Nicoderm C-Q 21 mg/24 hr transdermal film, extended release), 21 mg= 1 patch(es), Transdermal, q24h nicotine (Nicoderm Patch REMOVAL), 1 EA, Miscellaneous, q24h oxyCODONE(oxyCODONE 5 mg oral tablet ( IMMEDIATE release )), 5 mg= 1 tab(s), Oral, q6hr, PRN pantoprazole(Protonix), 40 mg= 1 tab(s), Oral, qDayAC spironolactone(Aldactone), 50 mg= 1 tab(s), Oral, qDayM Admit to Inpatient, 02/18/24 15:02:00 EDT, Level of Care: Regular floor, Reason for Admission: See History & Physical, Expected Length of Stay: More Than Two Midnights, I certify that hospital inpatient services are reasonable and necessary, and appropriately provided as... Elevate, 02/18/24 11:57:00 EDT, Constant Order, elevate legs while in bed/ chair to help with swelling VL Arterial Dopplers Both Legs Rest/PVR, 02/19/24 9:19:00 EDT, PVD, [facility], Patient Bed,ME6E, 02/19/24 9:19:00 EDT Digitally Signed by TIMOTHY GALLEGOS MD on 02/19/2024 11:15 AM [id number] Hospital Discharge instructions Patient Education 02/18/2024 18:16:21 Cirrhosis Cirrhosis Cirrhosis is long-term (chronic) liver injury. The liver is the body's largest internal organ, and it performs many functions. It converts food into energy, removes toxic material from the blood, makes important proteins, and absorbs necessary vitamins from food. In cirrhosis, healthy liver cells are replaced by scar tissue. This prevents blood from flowing through the liver, making it difficult for the liver to function. Scarring of the liver cannot be reversed, but treatment can prevent it from getting worse. What are the causes? Common causes of this condition are hepatitis C and long-term alcohol abuse. Other causes include: Nonalcoholic fatty liver disease. This happens when fat is deposited in the liver by causes other than alcohol. Hepatitis B infection. Autoimmune hepatitis. In this condition, the body's defense system (immune system) mistakenly attacks the liver cells, causing irritation and swelling (inflammation). Diseases that cause blockage of ducts inside the liver. Inherited liver diseases, such as hemochromatosis. This is one of the most common inherited liver diseases. In this disease, deposits of iron collect in the liver and other organs. Reactions to certain long-term medicines, such as amiodarone, a heart medicine. Parasitic infections. These include schistosomiasis, which is caused by a flatworm. Long-term contact to certain toxins. These toxins include certain organic solvents, such as tolueneand chloroform. What increases the risk? You are more likely to develop this condition if: You have certain types of viral hepatitis. You abuse alcohol, especially if you are female. You are overweight. You share needles. You have unprotected sex with someone who has viral hepatitis. What are the signs or symptoms? You may not have any signs and symptoms at first. Symptoms may not develop until the damage to yourliver starts to get worse. Early symptoms may include: Weakness and tiredness (fatigue). Changes in sleep patterns or having trouble sleeping. Itchiness. Tenderness in the right-upper part of your abdomen. Weight loss and muscle loss. Nausea. Loss of appetite. Appearance of tiny blood vessels under the skin. Later symptoms may include: Fatigue or weakness that is getting worse. Yellow skin and eyes (jaundice). Buildup of fluid in the abdomen (ascites). You may notice that your clothes are tight around your waist. Weight gain. Swelling of the feet and ankles (edema). Trouble breathing. Easy bruising and bleeding. Vomiting blood. Black or bloody stool. Mental confusion. How is this diagnosed? Your health care provider may suspect cirrhosis based on your symptoms and medical history, especially if you have other medical conditions or a history of alcohol abuse. Your health care provider will do a physical exam to feel your liver and to check for signs of cirrhosis. He or she may perform other tests, including: Blood tests to check: ?For hepatitis B or C. ?Kidney function. ?Liver function. Imaging tests such as: ?MRI or CT scan to look for changes seen in advanced cirrhosis. ?Ultrasound to see if normal liver tissue is being replaced by scar tissue. A procedure in which a long needle is used to take a sample of liver tissue to be checked in a lab (biopsy). Liver biopsy can confirm the diagnosis of cirrhosis. How is this treated? Treatment for this condition depends on how damaged your liver is and what caused the damage. It may include treating the symptoms of cirrhosis, or treating the underlying causes in order to slow thedamage. Treatment may include: Making lifestyle changes, such as: ?Eating a healthy diet. You may need to work with your health care provider or a diet and nutritionspecialist (dietitian) to develop an eating plan. ?Restricting salt intake. ?Maintaining a healthy weight. ?Not abusing drugs or alcohol. Taking medicines to: ?Treat liver infections or other infections. ?Control itching. ?Reduce fluid buildup. ?Reduce certain blood toxins. ?Reduce risk of bleeding from enlarged blood vessels in the stomach or esophagus (varices). Liver transplant. In this procedure, a liver from a donor is used to replace your diseased liver. This is done if cirrhosis has caused liver failure. Other treatments and procedures may be done depending on the problems that you get from cirrhosis. Common problems include liver-related kidney failure (hepatorenal syndrome). Follow these instructions at home: Take medicines only as told by your health care provider. Do not use medicines that are toxic to your liver. Ask your health care provider before taking any new medicines, including [id number] medicines. Rest as needed. Eat a well-balanced diet. Ask your health care provider or dietitian for more information. Limit your salt or water intake, if your health care provider asks you to do this. Do not drink alcohol. This is especially important if you are taking acetaminophen. Keep all follow-up visits as told by your health care provider. This is important. Contact a health care provider if you: Have fatigue or weakness that is getting worse. Develop swelling of the hands, feet, legs, or face. Have a fever. Develop loss of appetite. Have nausea or vomiting. Develop jaundice. Develop easy bruising or bleeding. Get help right away if you: Vomit bright red blood or a material that looks like coffee grounds. Have blood in your stools. Notice that your stools appear black and tarry. Become confused. Have chest pain or trouble breathing. Summary Cirrhosis is chronic liver injury. Liver damage cannot be reversed. Common causes are hepatitis C and long-term alcohol abuse. Tests used to diagnose cirrhosis include blood tests, imaging tests, and liver biopsy. Treatment for this condition involves treating the underlying cause. Avoid alcohol, drugs, salt, and medicines that may damage your liver. Contact your health care provider if you develop ascites, edema, jaundice, fever, nausea or vomiting, easy bruising or bleeding, or worsening fatigue. This information is not intended to replace advice given to you by your health care provider. Make sure you discuss any questions you have with your health care provider. Document Released: 05/11/2006 Document Revised: 08/31/2019 Document Reviewed: 03/31/2018 [employer] Patient Education 2020 [employer] Follow Up Care 02/17/2024 14:40:53 With:AUBRIE BIRMINGHAM MD Address: [address] [place] [address] [facility] [place] [address] [phone] When:Within 3 Week(s) With:GLO THORNE DO Address: [address] [place] [address] [place] [address]- When:03/04/2024 15:00:00 Comments:Please arrive 15 minutes early. Bring your insurance card and your photo ID along with a list of medications. [facility] 09-26-2024 NoteORIGINAL PROCEDURE: ULTRASOUND GUIDED PARACENTESIS CLINICAL INFORMATICS PHYSICIAN: Amina Guzman PA-C CLINICAL STATEMENT: Ascites ANESTHESIA: Local SITE: RUQ FLUID REMOVED: 5050 cc FLUID COLOR: Yellow serous DISPOSITION OF FLUID: Sent to lab CATHETER/NEEDLE: 5 Fr centesis catheter The procedure, risks, limitations, and alternatives were discussed. All questions were answered. Written informed consent was obtained. Accompanying paperwork was verified for accuracy. Directed history and physical exam performed prior to the procedure. Medication reconciliation was performed by nursing personnel. Procedure was performed using a cap, sterile gloves, a large sterile sheet, hand hygiene and hospital-approved cutaneous antisepsis. Ultrasound survey demonstrates ascites. 2% lidocaine was administered at the puncture site for local anesthesia. The centesis catheter needle was advanced into the fluid. After removal of the needle, the catheter was attached to a vacuum system and removed once no additional fluid could be removed. COMPLICATIONS: None EBL: None PATIENT CONDITION: unchanged IMPRESSION: 1. Successful ultrasound guided paracentesis. Procedure was performed by Amina Guzman PA-C under direct supervision of Domonique Valera PA-C I concur with the contents of this report. Interpreted by: Miladis Pond MD Preliminary Report By: Amina Guzman Electronically signed By Miladis Pond MD Dictated Date: 02/18/2024 3:37:36 PM Prelim Date: 02/18/2024 3:38:37 PM Sign Date: 02/18/2024 4:58:35 PM Ordering Provider: [facility] [id number] Note ORIGINAL PROCEDURE: ULTRASOUND GUIDED PARACENTESIS CLINICAL INFORMATICS PHYSICIAN: Amina Guzman PA-C CLINICAL STATEMENT: Ascites ANESTHESIA: Local SITE: RUQ FLUID REMOVED: 5050 cc FLUID COLOR: Yellow serous DISPOSITION OF FLUID: Sent to lab CATHETER/NEEDLE: 5 Fr centesis catheter The procedure, risks, limitations, and alternatives were discussed. All questions were answered. Written informed consent was obtained. Accompanying paperwork was verified for accuracy. Directed history and physical exam performed prior to the procedure. Medication reconciliation was performed by nursing personnel. Procedure was performed using a cap, sterile gloves, a large sterile sheet, hand hygiene and hospital-approved cutaneous antisepsis. Ultrasound survey demonstrates ascites. 2% lidocaine was administered at the puncture site for local anesthesia. The centesis catheter needle was advanced into the fluid. After removal of the needle, the catheter was attached to a vacuum system and removed once no additional fluid could be removed. COMPLICATIONS: None EBL: None PATIENT CONDITION: unchanged IMPRESSION: 1. Successful ultrasound guided paracentesis. Procedure was performed by Amina Guzman PA-C under direct supervision of Domonique Valera PA-C I concur with the contents of this report. Interpreted by: Miladis Pond MD Preliminary Report By: Amina Guzman Electronically signed By Miladis Pond MD Dictated Date: 02/18/2024 3:37:36 PM Prelim Date: 02/18/2024 3:38:37 PM Sign Date: 02/18/2024 4:58:35 PM Ordering Provider: [facility]09-26-2024 Procedure note IR Brief Post Procedure Note Preprocedure Dx: ascites Post Procedure Dx: Same Procedure: Paracentesis Anesthesia: Local EBL: Minimal Complications: None Status: Unchanged Findings: 1. Successful RUQ paracentesis. Drained yellow serous fluid Plan: 1. Fluid sent to lab 2. See final dictation for total volume drained Full report to follow. Amina Guzman PA-C Interventional Radiology Pager: [phone] IR dept: [id number] on Connect Messenger Digitally Signed by AMINA GUZMAN PA-C on 02/18/2024 02:37 PM [id number] Note US Procedure Record Summary Primary Physician: DOMONIQUE VALERA PA-C Finalized Date/Time: 02/18/24 14:58:39 Pt. Name: GLEZNARCISO/Sex: 1965 Male Med Rec #: [id number] Physician: DONNA FAJARDO MD Financial #: [id number] Pt. Type: O Room/Bed: [facility]/A Admit/Disch: 02/17/24 14:37:36 - Institution: Allergies identified in patient's electronic medical record at time of printing on 02/18/24 Entry 1 Substance NKA Reaction Type Allergy Last Modified By: Merry Pabon RN 02/17/24 15:03:35 Case Attendance- US Entry 1 Entry 2 Entry 3 Case Attendee DOMONIQUE VALERA PA-C, Kassidy E GENTRY, KATELYN J PA-C Role Performed Primary Surgeon Instrument Assembler Physician Solution Advisor Details Time In 02/18/24 14:21:00 02/18/24 14:15:00 02/18/24 14:17:00 Time Out 02/18/24 14:40:00 02/18/24 15:00:00 02/18/24 14:55:00 Procedure/Preference US Paracentesis (SN) US Paracentesis (SN) US Paracentesis (SN) Card Last Modified By: Yokasta Lawson Kassidy E Kornish, Kassidy E 02/18/24 14:27:25 02/18/24 14:27:25 02/18/24 14:27:25 Radiology Procedures- US Entry 1 Procedure/Preference US Paracentesis (SN) Actual Procedure US Paracentesis Card Primary Procedure Yes Primary Surgeon AMINA GUZMAN PA-C Anesthesia/Sedation Local Type Additional Procedure Times Start 02/18/24 14:23:00 Stop 02/18/24 15:00:00 Specialty Service SN Radiology Procedure EBL 0 mL Last Modified By: Yokasta Lawson 02/18/24 14:27:22 Cultures and Specimens- US Entry 1 Kind Specimen Type Fluid Last Modified By: Yokasta Lawson 02/18/24 14:26:13 General Case Data- US Entry 1 Case Information Room [facility] Receiving Case Level None Wound Class None Specialty SN Radiology Procedure ASA Class None Diagnosis Preop Diagnosis ascites Postop Same As Preop Yes Postop Diagnosis ascites Last Modified By: Yokasta Lawson 02/18/24 14:27:01 Medication Administration- US Entry 1 Medication 2% Lidocaine Time Administered 02/18/24 14:25:00 Route of Admin Local Volume 8 mL VORB Administered by Yes Administered by: AMINA GUZMAN PA-C Physician? Last Modified By: Yokasta Lawson 02/18/24 14:26:00 Case Times- US Entry 1 Patient In Procedure Patient In OR 02/18/24 14:17:00 Patient Out of OR 02/18/24 15:00:00 Procedure Start/Stop Procedure Start Time 02/18/24 14:23:00 Procedure Stop Time 02/18/24 15:00:00 Last Modified By: Yokasta Lawson 02/18/24 14:23:03 Immediate Post Procedure Note- US Entry 1 Immediate Post Yes Procedure Note displayed for Physician to review Closure Technique Closure Technique Other than Primary Last Modified By: Yokasta Lawson 02/18/24 14:26:18 Immediate Post Procedure Note- US Signed By: AMINA GUZMAN PA-C 02/18/24 14:34 Allergy Information- US Entry 1 Allergies Reviewed? Yes Last Modified By: Yokasta Lawson 02/18/24 14:21:35 Radiology Protocols/Time Out- US Entry 1 Preprocedure Clinician Verifies Correct patient ID When Clinically Confirmation of correct using name & date Indicated side(s) and site(s), or MRN, Accurate Correct diagnostic and procedure, complete radiology tests Informed Consent, H & P available update immediately prior to procedure, if applicable OR/Procedure Room/Bedside Time 02/18/24 14:24:00 Clinician Verifies Correct patient identity including EMR & records using name and date or medical record number, Accurate procedure consent form, Correct patient position, Necessary equipment is available When Applicable Confirmation correct Team Members DOMONIQUE VALERA side and site marked, Present for Time Out PA-C, Yokasta Lawson Relevant images and EZEHRA KATELYN J results are properly PA-C labeled and appropriately displayed, Alcohol based prep dry, Double verification of sterility indicators complete Instrument Sterility Team Members DOMONIQUE VALERA Verifying Sterility PA-CLulu Kassidy E, GENTRY, KATELYN J PA-C Procedure US Paracentesis (SN) Last Modified By: Yokasta Lawson 02/18/24 14:27:25 Skin Prep - US Entry 1 Procedure US Paracentesis (SN) Skin Prep Prep Area Abdomen Side Right By AMINA GUZMAN PA-C Prep Agents Chloraprep Hair Removal Method N/A Last Modified By: Yokasta Lawson 02/18/24 14:27:26 Patient Positioning- US Entry 1 Procedure US Paracentesis (SN) Body Position OP Supine Feet Uncrossed? Yes Pressure Points Yes Checked Last Modified By: Yokasta Lawson 02/18/24 14:27:26 Radiology Procedure Plan - US Entry 1 Radiology - Nursing Care Plan Radiology - Action Plan Action Plan - Patient demonstrates Outcome Statement knowledge of the expected reseponses to the invasive procedure, Patient's value system, lifestyle, ethnicity, and culture are considered, respected, and incorporated in the perioperative plan of care., Patient is free from signs and symptoms of infection., Patient is free from signs and symptoms of injury related to positioning., Patient receives appropriate medication(s), safely administered during the perioperative period., Patient is free from signs and symptoms of injury caused by extraneous objects (equipment, instrumentation, sponges, or sharps)., Patient is free from signs and symptoms of electrical injury. Outcomes Met? Yes Occ Therapist Yokasta Lawson Completing Procedure Plan Last Modified By: Yokasta Lawson 02/18/24 14:26:48 Radiology Lines and Procedures- US Entry 1 Radiology Sedation Case Times Sedation Total Time 0 Radiology - Fluid/Drainage Fluid Amount mL: 5050 Fluid Description yellow serous RAD - US [place], [place], Cath.... Catheters OneStep Catheter 5 Fr x Miscellaneous Items Merit Tray 10 cm Radiology Urinary Catheter Radiology Procedure Site Site Condition No complications Dressing Type Bandaids Last Modified By: Yokasta Lawson 02/18/24 14:58:33 Transfer Post Procedure- US Entry 1 RAD - Transport to Recovery Via Bed and Staff Member Post-op Destination Patient Room Post Procedure Time Out Double Verification Yes Date/Time Verified 02/18/24 14:27:00 of ID band on patient Completed Verfied ID Band on Yokasta Lawson, by AMINA GUZMAN PA-C Last Modified By: Yokasta Lawson 02/18/24 14:28:02 Case Comments Finalized By: Yokasta Lawson Document Signatures Signed By: Yokasta Lawson 02/18/24 14:58 [id number] Procedure note IR Brief Post Procedure Note Preprocedure Dx: ascites Post Procedure Dx: Same Procedure: Paracentesis Anesthesia: Local EBL: Minimal Complications: None Status: Unchanged Findings: 1. Successful RUQ paracentesis. Drained yellow serous fluid Plan: 1. Fluid sent to lab 2. See final dictation for total volume drained Full report to follow. Amina Guzman PA-C Interventional Radiology Pager: [phone] IR dept: [id number] on Connect Messenger Digitally Signed by AMINA GUZMAN PA-C on 02/18/2024 02:37 PM [facility] [id number] NoteBody Fluid Path ReviewNegative for malignant cells. (This evaluation is based on a screening review of one cytospin slide prepared primarily for differential cell count; if clinical index of suspicion is high, Cytology evaluation is recommended, as clinically indicated) *NA* (02/18/24 2:30 PM)AH Path Review Subsection 09-26-2024 Respiratory therapy Hospital Progress note Respiratory Therapy Evaluation Entered On: 02/18/2024 12:32 EDT Performed On: 02/18/2024 12:31 EDT by Elina Mayo RT Respiratory Therapy Evaluation Pulmonary Status : Non-smoker, no previous history Surgical Status : No surgery Chest X-Ray : Clear/none available/older than 3 days Respiratory Pattern (RT) : RR 10-20 BPM, Regular pattern Breath Sounds (RT) : Clear to auscultation Cough (RT) : Strong, non-productive Level of Activity : Ambulatory with assistance Mental Status : Alert, oriented and cooperative Respiratory Therapy Evaluation Score : 1 RT Evaluation Steps : Chart review completed, Assessment completed: RR, HR, Auscultation, Cough, Patient Interview completed RT Assessment [Frequency/Schedule] : No changes required Elina Mayo RT - 02/18/2024 12:31 EDT Digitally Signed by Elina Mayo RT on 02/18/2024 12:31 PM [facility] [id number] Note* Exam Date Time Procedure Performing Provider Status 02/18/24 9:48 AM Echocardiogram, Adult - CV Auth (Verified) [facility] 09-26-2024 Note* Exam Date Time Procedure Performing Provider Status 02/18/24 9:07 AM VL Venous US/Doppler Both Legs(for DVT) Auth (Verified) [facility] 09-25-2024 History and physical note Date of Service 02/17/24 Chief Complaint Pt complains of swelling and soreness in both of his legs. Pt states he was in hospital 2-3 weeks ago. History of Present Illness 58-year-old male with PMHx tobacco use, alcohol use disorder presents to the ED for bilateral lowerextremity edema and pain. History obtained by patient, ED physician, chart review. Patient states that he has had bilateral lower extremity edema and significant ascites interfering with his activities of daily living. This has been progressive since he was discharged from [facility] on 01/31/2024. He denies any vomiting, diarrhea. Pain is predominantly in the lower extremities. Longstanding alcohol use with 6-8 beers per day with last drink 1 month ago. He does not have any known diagnosisof heart failure. He is not familiar with his entire history. Denies any additional acute complaints. Prior admission: Discharged on 01/31/2024 from [facility]. Attempted to access [facility] records but they are not available. Per patient, during that admission he had paracentesis, echocardiogram, lower extremity Doppler. Plan was for him to follow-up outpatient with gastroenterology for liver ultrasound and further management. He was discharged with spironolactone and DuoNebs, endorses adherence. Also was told that he has a right lower extremity blood clot but did not need anticoagulation. In the emergency department he was initially tachycardic at 105. BP stable. Saturating adequately on room air. CBC with macrocytic anemia. Hemoglobin 12.7, MCV 111.7. Urinalysis is not concerning for infection. CMP with alk phos 131, albumin 2.2. Globulin 4.1. BNP elevated 1059. Troponin normal. Ammonia undetectable. CT abdomen pelvis shows moderate ascites. Fibrotic/cirrhotic morphology of the liver. Anasarca. Wall thickening of the colon may be due to decompressed state. Presently, there is low to no suspicion for colitis. CXR shows no definite acute intrathoracic process. He was given DuoNeb x 1 Physical Exam Vitals and Measurements T: 36.6 C (Oral) TMIN: 36.4 C (Oral) TMAX: 36.6 C (Oral) HR: 85 RR: 15 BP: 122/87 SpO2: 97% WT: 80.4 kg Weight Dosing Weight: 80.4 kg (02/17/24) GA: Alert and oriented x3, no acute distress Abd: Significantly distended. Nontender throughout. HEENT: NCAT, sclera anicteric, oral mucosa moist Pulmonary: No tachypnea or use of accessory respiratory muscles. MSK: No gross deformities Cardiovascular: Not tachycardic. Generalized edema. He has right greater than left lower extremity edema Skin: Warm and dry Neuro: Spontaneous movement of all extremities, cranial nerves II through XII grossly normal Psychiatric: Thought content, associations, attention are all normal. Lab Results 02/16 15:51 WBC: 6.9 10^3/mcL (02/17/24 15:51:00) RBC: 3.33 10^6/mcL Low (02/17/24 15:51:00) Hgb: 12.7 G/dL Low (02/17/24 15:51:00) Hct: 37.2 % Low (02/17/24 15:51:00) MCV: 111.7 fL High (02/17/24 15:51:00) MCH: 38.2 pg High (02/17/24 15:51:00) MCHC: 34.2 G/dL (02/17/24 15:51:00) RDW: 14.1 % (02/17/24 15:51:00) Platelet: 342 10^3/mcL (02/17/24 15:51:00) MPV: 7.8 fL (02/17/24 15:51:00) Monocyte Distribution Width: 19.19 (02/17/24 15:51:00) Neutrophil %: 70.6 % (02/17/24 15:51:00) Lymphocyte %: 18.4 % Low (02/17/24 15:51:00) Monocyte %: 8.8 % (02/17/24 15:51:00) Eosinophil %: 0.9 % (02/17/24 15:51:00) Basophil %: 1.3 % (02/17/24 15:51:00) Neutrophil, Absolute: 4.9 10^3/mcL (02/17/24 15:51:00) Lymphocyte, Absolute: 1.3 10^3/mcL (02/17/24 15:51:00) Monocyte, Absolute: 0.6 10^3/mcL (02/17/24 15:51:00) Eosinophil, Absolute: 0.1 10^3/mcL (02/17/24 15:51:00) Basophil, Absolute: 0.1 10^3/mcL (02/17/24 15:51:00) Platelet Estimate: Adequate (02/17/24 15:51:00) Macrocytosis: 2+ (02/17/24 15:51:00) UA Specimen Type: Clean Catch (02/17/24 15:59:00) UA Color: Dark YellowNovus (02/17/24 15:59:00) UA Appear: Clear (02/17/24 15:59:00) UA Spec Grav: 1.020 (02/17/24 15:59:00) UA Glucose: Negative. (02/17/24 15:59:00) UA Bili: Negative. (02/17/24 15:59:00) UA Ketones: Negative.1 (02/17/24 15:59:00) UA Blood: Negative. (02/17/24 15:59:00) UA pH: 5.5 (02/17/24 15:59:00) UA Protein: Trace (02/17/24 15:59:00) UA Urobilinogen: 1.0 (02/17/24 15:59:00) UA Nitrite: Negative. (02/17/24 15:59:00) UA Leuk Est: Negative. (02/17/24 15:59:00) Glucose Level: 106 mg/dL (02/17/24 15:51:00) Sodium Level: 136 mEq/L (02/17/24 15:51:00) Potassium Level: 3.7 mEq/L (02/17/24 15:51:00) Chloride: 104 mEq/L (02/17/24 15:51:00) CO2: 28 mEq/L (02/17/24 15:51:00) Electrolyte Balance: 4 mEq/L (02/17/24 15:51:00) BUN: <5.0 Low (02/17/24 15:51:00) Creatinine Lvl (s): 0.69 mg/dL (02/17/24 15:51:00) BUN/Creatinine Ratio: Unable to Calculate (02/17/24 15:51:00) Calcium Lvl: 8.8 mg/dL (02/17/24 15:51:00) Total Protein: 6.3 G/dL (02/17/24 15:51:00) Albumin Level: 2.2 G/dL Low (02/17/24 15:51:00) Globulin: 4.1 G/dL High (02/17/24 15:51:00) A/G Ratio: 0.5 ratio Low (02/17/24 15:51:00) Bili Total: 0.7 mg/dL (02/17/24 15:51:00) Alk Phos: 131 U/L High (02/17/24 15:51:00) AST/SGOT: 28 U/L (02/17/24 15:51:00) ALT/SGPT: 11 U/L Low (02/17/24 15:51:00) GFR Non-: >60 (02/17/24 15:51:00) GFR : >60 (02/17/24 15:51:00) Ammonia: <10 Low (02/17/24 15:51:00) N-Terminal proBNP: 1359 pg/mL High (02/17/24 15:51:00) High Sensitivity Troponin I: 3 ng/L (02/17/24 15:51:00) Imaging Results and Diagnostics CT Abd/Pelvis w/ IV Contrast Only Result Date: February 17, 2024 Verified By: MARC LANIER MD CLINICAL STATEMENT: IMPRESSION: Moderate ascites. 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 Anasarca. Generalized wall thickening/edema of the colon which could be accentuated byits relatively decompressed state, submucosal fat deposition orascites/portal hypertension, unless there is a clinical concern forunderlying infectious or inflammatory colitis. XR Chest 1 View Result Date: February 17, 2024 Verified By: DAMON MADISON DO CLINICAL STATEMENT: IMPRESSION: No definite acute cardiopulmonary process by radiograph. I have personally reviewed theimages of this examination and agree with theresident's findings and interpretation. EKG EC02/17/24: SINUS RHYTHM SHORT ND INTERVAL LOW VOLTAGE, EXTREMITY AND PRECORDIAL LEADS NONSPECIFIC T ABNRM, ANTEROLATERAL LEADS PROLONGED QT INTERVAL Electronic Signature: TR GOLDSTEIN MD 02/17/2024 21:26:25 Assessment/Plan Bilateral lower extremity pain. Patient does not recall his history; was recently admitted to [facility] and told that he has a lower extremity blood clot. States that he previously had an intervention but cannot qualify further. Reports that he was not diagnosed with heart failure. He does not know why he is not on anticoagulation. Bilateral lower extremities pain has progressed. Recent admission to [place] 01/31/2024. Records not available in [facility]. Will request records, admit the patient to the hospital for further management. Bilateral lower extremity Doppler Lasix 20 mg IV Continue the patient's home spironolactone. 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 He has substantial ascites but is nontender throughout. Recently had 4 L removed at [facility] per patient. Low suspicion for SBP at this time. Paracentesis Considering multiple admissions, may benefit from close follow-up with GI. The patient does not know who he is post to follow-up with. May benefit from consult here pending clinical course. Tobacco use. Will offer nicotine patch with the patient request. History of alcohol use disorder. No use over the past 1 month. Previously 6-8 beers per day. Encourage continued cessation DVT prophylaxis: SCDs Note dictated using voice recognition software and may contain typographical errors. Procedure/Surgical History No qualifying data available. Medications Home Medications (2) Active albuterol 2.5 mg/3 mL (0.083%) inhalation solution 2.5 mg = 3 mL, PRN, Nebulized, q6hr spironolactone 25 mg oral tablet 25 mg = 1 tab(s), Oral, qDay Allergies NKA Social History Alcohol Use: Current. Type: Beer. Frequency: Daily., 02/17/2024 Tobacco Nicotine Use: 5-9 cigarettes (between 1/4 to 1/2 pack)/day in last 30 days. Type: Cigarettes. Tobacco use per day: 7. Number of years: 40. Started at age: 14 Years. Previous treatment: None. Ready tochange: No., 02/17/2024 Family History Nonsignificant Immunizations No qualifying data available. Code Status No qualifying data available. Digitally Signed by DONNA FAJARDO MD on 02/17/2024 11:11 PM [facility] [id number] Note ORIGINAL EXAMINATION: CT OF THE ABDOMEN AND PELVIS WITH CONTRAST 02/17/2024 5:02 pm TECHNIQUE: CT of the abdomen and pelvis was performed with the administration of intravenous contrast. Multiplanar reformatted images are provided for review. Automated exposure control, iterative reconstruction, and/or weight based adjustment of the mA/kV was utilized to reduce the radiation dose to as low as reasonably achievable. COMPARISON: None. HISTORY: ORDERING SYSTEM PROVIDED HISTORY: Reason for Exam: bloating, pain, nausea. pt states recent paracentesis. ab pain FINDINGS: Lower Chest: No focal consolidation. Small paraesophageal hernia. Organs: Fibrotic/cirrhotic morphology to the liver. A few scattered subcentimeter hypodensities in the liver which are too small to characterize. Gallstones within a nondistended gallbladder. A few subcentimeter hypodensities in left kidney too small to characterize although could reflect small cysts. GI/Bowel: Wall thickening/edema of the colon. Moderate ascites. No pneumoperitoneum. Cannot reliably evaluate for focal inflammatory changes due to intra-abdominal edema. Pelvis: Unremarkable. Peritoneum/Retroperitoneum: Nonaneurysmal abdominal aorta with atherosclerotic plaque. A few mildly prominent nonspecific inguinal lymph nodes. Bones/Soft Tissues: Anasarca. Right femur fixation. Chronic wedge deformity of T12 vertebral body. Multilevel degenerative changes of the spine. IMPRESSION: Moderate ascites. 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 Anasarca. Generalized wall thickening/edema of the colon which could be accentuated by its relatively decompressed state, submucosal fat deposition or ascites/portal hypertension, unless there is a clinical concern for underlying infectious or inflammatory colitis. Interpreted by: Marc Lanier Preliminary Report By: Marc Lanier Electronically signed By Marc Lanier Dictated Date: 02/17/2024 5:05:37 PM Prelim Date: 02/17/2024 5:12:01 PM Sign Date: 02/17/2024 5:12:01 PM Ordering Provider: [facility]09-25-2024 Note ORIGINAL EXAMINATION: ONE XRAY VIEW OF THE CHEST02/17/2024 4:13 pm COMPARISON: None. HISTORY: ORDERING SYSTEM PROVIDED HISTORY: Reason for Exam: sob FINDINGS: The cardiomediastinal silhouette is unremarkable. There is no pulmonary vascular congestion. There is no focal consolidation. No significant volume pleural effusion. No pneumothorax. No acute osseous abnormality by radiograph; osseous detail is limited. Surgical fixation plate at the left clavicle. IMPRESSION: No definite acute cardiopulmonary process by radiograph. I have personally reviewed the images of this examination and agree with the resident's findings and interpretation. Interpreted by: Damon Madison Preliminary Report By: Adolph Millan Electronically signed By Damon Madison Dictated Date: 02/17/2024 4:19:25 PM Prelim Date: 02/17/2024 4:22:51 PM Sign Date: 02/17/2024 4:50:32 PM Ordering Provider: [facility]09-25-2024 NoteSINUS RHYTHM SHORT ND INTERVAL LOW VOLTAGE, EXTREMITY AND PRECORDIAL LEADS NONSPECIFIC T ABNRM, ANTEROLATERAL LEADS PROLONGED QT INTERVAL Electronic Signature: TR GOLDSTEIN MD 02/17/2024 21:26:[facility] 09-25-2024 Evaluation + Plan noteExtracted from: Title:History and Physical Author:LAYNE FAJARDO MD Date:02/17/24 Bilateral lower extremity pa in. Patient does not recall his history; was recently admitted to [facility] and told that he has a lower extremity blood clot. States that he previously had an intervention but cannot qualify further. Reports that he was not diagnosed with heart failure. He does not know why he is not on anticoagulation. Bilateral lower extremities pain has progressed. Recent admission to [place] 01/31/2024. Records not available in [facility]. Will request records, admit the patient to the hospital for further management. Bilateral lower extremity Doppler Lasix 20 mg IV Continue the patient's home spironolactone. 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 He has substantial ascites but is nontender throughout. Recently had 4 L removed at [facility] per patient. Low suspicion for SBP at this time. Paracentesis Considering multiple admissions, may benefit from close follow-up with GI. The patient does not know who he is post to follow-up with. May benefit from consult here pending clinical course. Tobacco use. Will offer nicotine patch with the patient request. History of alcohol use disorder. No use over the past 1 month. Previously 6-8 beers per day. Encourage continued cessation DVT prophylaxis: SCDs Note dictated using voice recognition software and may contain typographical errors. Diagnostic Tests Pending * NOEMI by IFA Screen 02/20/24 * Tissue Transglutaminase Ab (IGA) 02/21/24 * Hepatitis A Antibody IgG 02/21/24 * NOEMI by IFA Screen 02/21/24 * [id number] 02/21/24 * .Body Fluid Path Review 02/22/24 [facility] 09-10-2024 [facility] Medical Records Department [address] [place] [address] Discharge Summary 02/02/24 1457 MR#: [id number] Acct: [id number] Name: NARCISO GLEZ Rep #: [id number] : 1965 58 From: Ramakrishna Bower DO PCP: Care Physician,No Primary Status:DIS IN [place] [facility] [id number] Providers Date of Admission: 01/31/24 Date of Discharge: 02/02/24 Primary Care Physician: No Primary Care Phys Reason For Visit: DECOMPENSATED CIRRHOSIS Diagnosis Discharge Diagnosis (1) Acute hypokalemia: Status: Acute Code(s): E87.6 - Hypokalemia Plan 1. Hypokalemia-potassium replacement will be given, BMP will be rechecked tomorrow #2 ascites-from suspected undiagnosed liver disease-patient will undergo a paracentesis tomorrow, I placed him on Aldactone today. Total clinical time spent by myself addressing the patient's medical issues, reviewing all of his data, and collaborating with patient's care team: 25 minutes Medications at Discharge Home Medications spironolactone 25 mg tablet 25 mg PO DAILYCM #30 tabs 02/02/24 Hospital Course Operations None Procedures 2-D Echocardiogram and Paracentesis Summary of Care Provided Minutes Spent on Discharge: 31 Hospital Course: This 58-year-old white male was seen in the emergency room at [facility] with a chief complaint of lower extremity edema and abdominal distention. He also complained of some intermittent nausea and vomiting. Patient was here from [place] for and was brought in by family members, he had not been evaluated by physician for several years. He was taking no medications and has a history of daily alcohol usage and cigarette usage. Workup in the emergency room included labs which showed a normal white blood cell count, hemoglobin was also normal, chemistry profile revealed a low potassium at 2.9, sodium was 133, total bilirubin was 1.6, and alkaline phosphatase was elevated at 155. Patient's beta natruretic peptide was elevated at 108, chest x-ray showed no acute findings, abdomen and pelvis CT showed a diffusely heterogeneous the enhancing liver, there is moderate abdominal ascites noted and cholelithiasis. There was a compression deformity of T12 which was not new and visualized on a previous chest x-ray in 2003. Patient was admitted to [facility] 3, he was given potassium replacement and underwent a paracentesis with removal of 4000 cc of fluid from the abdominal cavity. Patient was placed on Aldactone but the patient's blood pressure remained low and so the Aldactone dosage could not be increased. Patient underwent an echocardiogram to rule out any abnormal ejection fraction, the patient's EF was 60%. Patient was seen by PT and OT, it was recommended that he consider a walker but the patient told me that he already had a walker at home. On 02/02/2024, patient was seen and examined: On examination he appeared in good health and spirits. Vital signs as documented. Skin warm and dry and without overt rashes. Neck without JVD, neck was supple, trachea midline, thyroid was normal. Lungs clear bilaterally, normal air movement was noted. Heart exam notable for regular rhythm, normal sounds and absence of murmurs, rubs or gallops. Abdomen unremarkable and without evidence of organomegaly, masses, or abdominal aortic enlargement. Bowel sounds are present, abdomen is not distended. Extremities nonedematous, no cyanosis was noted, no clubbing was noted. Neuro: Cranial nerves II through XII are grossly intact, no focal motor deficits were noted, sensation to light touch and pinprick intact, motor exam 5/5 throughout. Psych: Patient is alert and oriented x3, he does not appear anxious or depressed, he does not appear agitated. On 02/02/2024, patient was discharged home in stable condition, he was instructed to follow-up with [facility] in 2 weeks for follow-up appointment. Medical Records Data Homelessness:: Sheltered Weight / BMI Weight Weight: 76.5 kg Body Mass Index (BMI) 24.1 ABG / Lab / Microbiology Data 02/01/24 05:13 02/02/24 07:03 Laboratory: Laboratory Results - last 24 hr 02/02/24 07:03: Sodium 133 L, Potassium 3.9, Chloride 98, Carbon Dioxide 28.0, Anion Gap 7, BUN 6 L, Creatinine 0.68 L, Estim Creat Clear Calc 122.26, Est GFR (MDRD) Af Amer 153, Est GFR (MDRD) Non-Af 126, BUN/Creatinine Ratio 8.8 L, Glucose 80, Calcium 8.2 L 02/02/24 12:15: Fluid WBC 0.143, Fluid Tot Cell Count 0.164, Fld Polynuclear WBCs # 0.025, Fld Polynuclear WBCs % 17.5, Fluid Mononuclear WBCs 0.118, Fld Mononuclear WBCs % 82.5, Fluid Glucose 124 H, Fluid LDH 35 Radiography Diagnostic Testing: Radiology Impression Venous Doppler Study 01/31/24 21:34 Interpretation Summary Chronic deep vein thrombosis is noted in the right femoral vein, popliteal vein, tibioperoneal trunk vein, mat puncher (more content not included)...[facility]02-22-2022 History of Present illness Narrative* PCP: Nica * I had the pleasure of seeing Mr. GLEZ in the [facility] cardiology clinic today. Briefly, this is a 55-year-old gentleman with hypertension, presented to PCP with reports of progressively worsening right lower extremity edema in the last couple weeks. DVT scan showed s ignificant thrombotic burden with extension into the distal iliac system. Significant pain with ambulation. Denies any shortness of breath. No prior blood clots in self. Does report blood clot in hismother's history. * Patient has been initiated on Xarelto starter pack by Coumadin clinic. Ongoing edema and pain despite anticoagulation. [facility] Work Phone: 1(108) 576-937501-22-2022 History of Present illness Narrative* Narciso is a 56-year-old male here for evaluation of right lower extremity swelling. Patient reports that swelling has started about a month ago. He then returned noticed a change in color in the skin. Reports that erythematous region is tender. Denies any change in work activity. He has been taking his Xarelto regularly. Denies any skip days. Reports that when he stands for extended period of time. Notices swelling. Denies fever. Reports that he has feet is rubbing against the shoe and causingsome injury there. * Plan: * Appears to have cellulitis of the right lower extremity. Starting antibiotics. He needs to continuehis Xarelto for now. A close follow-up in a week to reassess his symptoms. Recommended to seek immediate medical attention if acute worsening of symptoms [facility] Work Phone: [phone]) [phone] NoteSend Summary: Discharge Summary Providers: Provider RoleProvider Name Alvaro Amezquita Kevin ConsultingLi, Jun PrimaryMary Imogene Bassett Hospitalan, Oriana Wiseman Note Recipients: Dr. Mcneil Discharge: Summary: Admission Date: .04-Nov-2020 21:00:00 Discharge Date: 06-Nov-2020 Attending Physician at Discharge: Socrates Dietz Admission Reason: DVT(1) Final Discharge Diagnoses: DVT (deep venous thrombosis) Procedures: Thrombectomy Condition at Discharge: Fair Disposition at Discharge: .Home Vital Signs: T PRBPSpO2 [id number]/8594% Date/Time11/06 8: 8: 8: 8: 8:00 Range(36.5C - 37.3C ) (78 - 100 ) (11 - 33 ) (109 - 152 )/ (70 - 96 ) (91% - 94% ) Highest temp of 37.3 C was recorded at 11/06 0:00 Date: Weight/Scale Type:Height: 04-Nov-2020 21:3075.4 kg / tkvboslu414.8 cm Physical Exam: Constitutional: No acute distress, well appearing, pleasant Eyes: EOMI, clear sclera ENMT: oral mucosa pink Head/Neck: normocephalic, supple neck, trachea midline Respiratory/Thorax: CTA B/L, no wheezes, no rales Cardiovascular: RRR, normal s1, s2, no murmurs, no carotid bruits, radial and dorsalis pedis 2+ b/l, 1+ pitting edema at b/l feet Gastrointestinal: Normal bowel sounds all 4 quadrants, soft, nontender, no masses or hepatosplenomegaly Musculoskeletal: ROM intact, muscle strength 5+ throughout. RLE warm and erythematou s Neurological: No focal deficits Psychological: No depression, anxiety Skin: warm, dry, no lesions Hospital Course: 55 yo M with PMHx of COPD, HTN, tobacco dependence, EtOH abuse, and s/p ORIF R hip in [place] 05/18/20 presents with an extensive R LE DVT extending into the distal iliac system. He has been dealing with progressively worsening R LE pain and swelling since his hip surgery 6 months ago. Pain is now limiting ambulation and is unable to work. He cannot recall being discharged on DVT ppx after his surgery. He eventually had a LE US on 10/30 which showed an extensive R LE DVT. He had a tele visit with Dr. Alvaro Bah on 11/02 who recommended admission to extract thrombus. Thrrombectomy performed on 11/05/20. Patient now hemodynamically stable for discharge. Patient to be discharged on Xarelto 15 mg BID for 3 weeks then Xarelto 20 mg QD. Patient should f/u wit his PCP and f/u with Dr. Bah in 6 months with RLE DVT scan. All plans and goals of care were discussed and agreed upon with the patient. Discharge Information: and Continuing Care: Lab Results - Pending: None Radiology Results - Pending: None Discharge Instructions: Activity: activity as tolerated. Balance activity with rest, gradually increase your activity as tolerated Exercise as prescribed by your physician Nutrition/Diet: resume normal diet Wound Care: Do NOT allow anyone but the Vascular Surgeon to remove janneth or sutures. Follow Up Appointments: Follow-Up Appointment 01: Physician/Dept/Service: Dr. Mcneil Reason for Referral: Hospital f/u Scheduled Date/Time: 09-Nov-2020 16:00 Location: [facility] [address] , [address], [place]. [address] Follow-Up Appointment 02: Physician/Dept/Service: Dr. Bah with ultrasound of right leg Scheduled Date/Time: 02-May-2021 01:00 Location: [facility] 2nd Floor Cardio, [address] [place] [address] Discharge Medications: Home Medication hydroCHLOROthiazide 12.5 mg oral tablet - 1 tab(s) orally once a day Xarelto 15 mg oral tablet - 1 tab(s) orally 2 times a day Xarelto 20 mg oral tablet - 1 tab(s) orally once a day PRN Medication ondansetron 8 mg oral tablet - 1 tab(s) orally every 8 hours, As Needed Issues to Discuss at Follow-up / Goals for Continuing Care: Thank you for choosing [facility] - it has been a pleasure taking part in your medical care. Please follow up with your Primary Medical Physician within 1 week of discharge and any specialists as noted within 1-2 weeks for further workup. If your symptoms should persist or worsen, please return immediately to the nearest Emergency Room for further care. If you have any questions about the care you received please call [facility] at . Additional Instructions *You have been started on a new medication, please carefully review dosing regimen. Signature/Cosignature/Attestation: Note Completion: I am a: Resident/Fellow Attending AttestationI saw and evaluated the patient. I personally obtained the eddy and critical portions of the history and physical exam or was physically present for eddy and critical portions performed by the resident/fellow. I reviewed the resident/fellows documentation and discussed the patient with the resident/fellow. I agree with the resident/fellows medical decision making as documented in the note. I personally evaluated the patient [id number] (more content not included)...[facility]06-14-2021 NoteHistory & Physical Reviewed: I have reviewed the History and Physical dated: 05-Nov-2020 History and Physical reviewed and relevant findings noted. Patient examined to review pertinent physical findings.: No significant changes Home Medications Reviewed: no changes noted Allergies Reviewed: no changes noted Airway/Sedation Assessment: Emotional Statuscalm Neurologicalert & oriented x 3 Respiratoryclear to auscultation Cardiovascularrhythm & rate regular GI/GUsoft, nontender Mouth Opening OKyes Neck Flexibility OKyes Loose Teethno Oropharyngeal ClassificationClass III ASA PS ClassificationASA III Sedation Planmoderate (sedation level of 3-4) ERAS (Enhanced Recovery After Surgery): ERAS Patient: no Consent: COVID-19 Consent: COVID-19 Risk ConsentSurgeon has reviewed eddy risks related to the risk of katty COVID-19 and if they contract COVID-19 what the risks are. Signatures/Attestation: Note Completion: I am a: Resident/Fellow Attending AttestationI saw and evaluated the patient. I personally obtained the eddy and critical portions of the history and physical exam or was physically present for eddy and critical portions performed by the resident/fellow. I reviewed the resident/fellows documentation and discussed the patient with the resident/fellow. I agree with the resident/fellows medical decision making as documented in the note. I personally evaluated the patient [id number] Attending Provider Inpatient Certification StatementI certify this patients need for inpatient care based on the above documentation including; the order to admit as inpatient, the anticipated length of stay, diagnosis, problem list and plan of care, and discharge plan. Admission Order - View OnlyCurrent Admission Order. Admit to Inpatient Adult Community Transfer to, [facility]: [place] 8 ICU Stepdown Admitting Diagnosis, I82.409 DVT (deep venous thrombosis) , Attending Provider Angel Dietz Level of Care, Telemetry Angel Dietz Electronic Signatures: Alvaro Bah) (Signed 12-Nov-2020 07:58) Authored: TIANA, Note Completion Co-Signer: History & Physical Reviewed, Airway/Sedation, Consent, Note Completion Jessica Fairchild (Resident)) (Signed 05-Nov-2020 16:16) Authored: History & Physical Reviewed, Airway/Sedation, Consent, Note Completion Last Updated: 12-Nov-2020 07:58 by Alvaro Bah)[facility]06-14-2021 NoteHistory of Present Illness: Admission Reason: extensive R LE DVT HPI: 55 yo M with PMHx of COPD, HTN, tobacco dependence, EtOH abuse, and s/p ORIF R hip in [place] 05/18/20 presents with an extensive R LE DVT extending into the distal iliac system. He has been dealing with progressively worsening R LE pain and swelling since his hip surgery 6 months ago. Pain is now limiting ambulation and is unable to work. He cannot recall being discharged on DVT ppx after his surgery. In addition, he states he has been complaining of pain and swelling to both his orthopedic surgeon and PCP for months. He states his surgeon states it was expected post operative swelling and pain and his PCP told him his swelling was due to poor activity level and to wear compression stockings. He eventually had a LE US on 10/30 which showed an extensive R LE DVT. He had a tele visit with Dr. Alvaro Bah on 11/02 who recommended admission to extract thrombus. He is currently on Xarelto 15mg BID with last dose at 2 PM. PSHx: repair shoulder fx, ORIF R hip 05/18/20 Social: 1 ppd, 7-8 beers daily, denies illicit Fam Hx: COPD, HTN, HLD Comorbidities: Comorbid Conditionschronic obstructive pulmonary disease, hypertension COPDunknown Allergies: NKDA: contrast (specific type unknown): Unknown Medications Prior to Admission: home meds reviewed. Review of Systems: Musculoskeletal: POSITIVE: Decreased ROM, Pain; COMMENTS: R LE Objective: Objective Information: T PRBPSpO2 [id number]/6794% Date/Time11/04 22: 22: 21: 22:5911/04 22:59 Range(36.6C - 36.9C ) (93 - 97 ) (20 - 20 ) (99 - 107 )/ (67 - 71 ) (93% - 94% ) Highest temp of 36.9 C was recorded at 11/04 22:59 Pain reported at 11/04 21:30: 5 = Moderate Physical Exam by System: Constitutional: aox3, NAD, cooperative Eyes: clear sclera Head/Neck: supple, no JVD Respiratory/Thorax: mild scattered exp wheezes Cardiovascular: RRR s1 s2 Gastrointestinal: soft, NT, non distended, normal BS, no rebound or guarding Extremities: b/l LE edema R>>L Neurological: no appreciable focal deficits Psychological: Appropriate mood and behavior Medications: Medications: CENTRAL NERVOUS SYSTEM AGENTS: 1. Acetaminophen: 650 mg Oral Every 4 Hours PRN 2. HYDROcodone 5 mg - Acetaminophen 325 m tablet(s) Oral Every 4 Hours PRN COAGULATION MODIFIERS: 1. Heparin (Repeat Bolus) Injectable: 6000 unit(s) IntraVenous Push Every 4 Hours 2. Heparin 25,000 units/ D5W 250 mL Infusion..: 1400 units/hr IntraVenous Assessment and Plan: Assessment: Extensive R LE DVT Elevated LFTs COPD HTN EtOH abuse Tobacco dependence s/p ORIF R hip in [place] 05/18/20 Plan: - Start heparin drip (last dose Xarelto 15mg at 2 PM), NPO after midnight, Dr. Bah plans to for extraction tomorrow - Monitor for EtOH withdrawal, refused nicotine patch - Mild elevation of AlkP, bili, AST likely due to longstanding EtOH abuse Signatures/Attestation/Certification: Note Completion: Attending Provider Inpatient Certification StatementI certify this patients need for inpatient care based on the above documentation including; the order to admit as inpatient, the anticipated length of stay, diagnosis, problem list and plan of care, and discharge plan. Admission Order - View OnlyCurrent Admission Order. Admit to Inpatient Adult Community Transfer to, [facility]: [place] [address] ICU Stepdown Admitting Diagnosis, I82.409 DVT (deep venous thrombosis) , Attending Provider Angel Dietz Level of Care, Telemetry Angel Dietz Admission Order Certification order has been placed by Angel Dietz Electronic Signatures: Angel Dietz () (Signed 05-Nov-2020 00:59) Authored: History of Present Illness, Comorbidities, Allergies, Medications Prior to Admission, Review of Systems, Objective, Assessment and Plan, Note Completion Last Updated: 05-Nov-2020 00:59 by Angel Dietz ()[facility]06-11-2021 Chief complaint Narrative - Reported* An interactive audio and video telecommunication system which permits real time communications between the patient (at the originating site) and provider (at the distant site) was utilized to providethis telehealth service. * Verbal consent was requested and obtained from NARCISO DREW on this date, 11/02/2020 03:45 PM , for a telehealth visit. * RLE acute DVT [facility] Work Phone: 1(421) [phone] Chief complaint Narrative - Reported* An interactive audio and video telecommunication system which permits real time communications between the patient (at the originating site) and provider (at the distant site) was utilized to providethis telehealth service. * Verbal consent was requested and obtained from NARCISO DREW on this date, 11/02/2020 03:45 PM , for a telehealth visit. * RLE acute DVT [address] Work Phone: [phone]) 254-594806-09-2021 History of Present illness Narrative* Marisol Cooper LPN - 10/31/2020 4:21 PM EDT Narciso left a message to cancel his appointment for Thursday. He has a blood clot in a leg. His PCP has put him on Coumadin and sending him to a specialist. documented in this [id number] History of Present illness Narrative* PCP: Nica * I had the pleasure of seeing Mr. GLEZ in the [facility] [place] cardiology clinic today. Briefly, this is a 55-year-old gentleman with hypertension, presented to PCP with reports of progressively worsening right lower extremity edema in the last couple weeks. DVT scan showed s ignificant thrombotic burden with extension into the distal iliac system. Significant pain with ambulation. Denies any shortness of breath. No prior blood clots in self. Does report blood clot in hismother's history. * Patient has been initiated on Xarelto starter pack by Coumadin clinic. Ongoing edema and pain despite anticoagulation. [facility] Work Phone: [phone]) [phone] History of Present illness Narrative* Here for follow up regarding pedal edema. patient reports that he has returned to work in the last couple of weeks and his leg swelling has worsened. reports that his right leg is significantly swollen than left leg. endorses pain in the extremity as well. reports that he has been active and non-sedentary. wonders if this is from surgical intervention he has had in his right lower extremity. * In regards to the labs including US ordered during last visit, he reports that he has not been ableto get to those labs as he was busy and his symptoms were minimal at that time. -[facility] Work Phone: 1([phone]) 954-602605-24-2021 History of Present illness Narrative* Here for follow up regarding pedal edema. patient reports that he has returned to work in the last couple of weeks and his leg swelling has worsened. reports that his right leg is significantly swollen than left leg. endorses pain in the extremity as well. reports that he has been active and non-sedentary. wonders if this is from surgical intervention he has had in his right lower extremity. * In regards to the labs including US ordered during last visit, he reports that he has not been ableto get to those labs as he was busy and his symptoms were minimal at that time. -[facility] Work Phone: Evaluation note* Constitutional: alert and cooperativeCardiovascular: Regular, rate and rhythm, no murmurs, + pulsesof the extremities, normal S1 and A9Uqcvdxrzpvm/Thorax: Diminished breath sounds bilaterally, thorax symmetricHead/Neck: No JVD, trachea midlineENMT: mucous membranes moistEyes: clear scleraSkin: Warm and dry. Right popliteal site covered with DRSG D+I, no hematoma, no ecchymosis, no erythema.Extremities: no cyanosis, no edemaMusculoskeletal: ROM intact, no joint swelling, normal strengthGastrointestinal: Nondistended, soft, non-tender, no masses palpable, no organomegaly, +BSPsychological: Appropriate mood and behaviorNeurological: alert and oriented x3 [facility] Other Phone (unformatted): [phone] of Present illness NarrativeNarciso is a 55-year-old male here for follow-up regarding his right lower extremity DVT. Patient has underwent surgical intervention for DVT removal. Patient reports that the procedure went well. However had some many complications after the procedure. His right lower extremity swelling has significantly decreased now. Reports that he continues to have mild right lower extremity pain.[facility] Work Phone: History of Present illness Narrative* Narciso is here for follow-up. Patient reports that he intermittently still has swellings in his ankle. However significantly better than in the past. He is continuing to take Xarelto regularly. Denies SOB, chest pain, palpitations. * Follow up in 3 months. Can consider discontinuation of anticoagulant at that time, as it will be 6 months of anticoagulation (which is thought to be adequate given that his episode was considered provoked DVT). [facility] Work Phone: History of Present illness NarrativeRightMorton County Health System Work Phone: History of Present illness Narrative* Patient is here for follow-up regarding right ankle pain and swelling. Patient reports that he continues to have pain in his right lower extremity. He has completed his antibiotic course. However this did not improve his symptoms. Ordered a DVT evaluation by an ultrasound. We will communicate with his vascular surgeon for appointment. * Follow-up based on ultrasound results. [facility] Work Phone: History of Present illness Narrative* Patient is here for follow-up after recent fall. Patient reports that he has lost balance and fell down injuring his right side of the rib cage along with the hip. Went to the emergency department. He was not found to have any fractures based on the x-ray results. Reports that the pain is severe and is unable to fall asleep. Reports that he continues to have right ankle pain. 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 Ultrasound of the lower extremity did not show any worsening of the clot. It was recommended to wear compression stocking. * He continues to use cane to ambulate. Does not feel safe without the cane to ambulate. Continues tohave right ribs pain and right hip pain as well. Is applying heating pad * Plan: * Given the significant pain patient is in at this point discussed about the pain management options.Initiating tramadol at low-dose for pain. Recommended to use sparingly. Discussed about the potential side effects of the medication. X-ray of the right ankle is ordered for further evaluation. * Follow-up in 3 months. [facility] Work Phone: History of Present illness Narrative* Patient is here for follow-up after recent fall and hip pain. Patient reports that he has lost balance and fell down injuring his right side of the rib cage along with the hip. Went to the emergency department. He was not found to have any fractures based on the x-ray results. * Reports that he continues to have trouble with ambulation. However there is an improvement that he has not required to use walker. He has been able to ambulate with a cane. However still feels unstable to go back to his work. Feels like he may need another week to 2 weeks to recover. Requesting a letter to extend the leave of absence from work. * Continues to have right ribs pain and right hip pain as well. Is applying heating pad * Plan: * Given the significant pain patient is in at this point discussed about the pain management options.Extension for his back limitation is provided today. * Paperwork filled during the appointment. * Follow[facility] in 3 months. [facility] Work [facility]: History of Present illness Narrative* Patient is here for evaluation of flank pain and dysuria. * Patient reports that flank pain- bilateral. Denies fever or nausea. endorses urinary frequency and dysuria. * Plan: Labs per order. * Elevated LFT - bilirubin: Patient's bilirubin has significantly worsened since last appointment. AST and ALT is elevated. * Plan: Given the worsening symptoms and increase in bilirubin, CT scan is ordered. * Recommended to avoid alcohol consumption. * Patient has been having worsening of his low back pain has been unstable on his feet and has had multiple falls due to this. He does not feel safe going back to work with the current condition. He would like to apply for short-term disability again which I think is appropriate with his current condition. He will send us paperwork regarding this. He has not been able to go back to work since January 13, 2022. * Plan: Will sign the paperwork when we receive it. * Follow up in 4 weeks. [facility] Work Phone: History of Present illness Narrative* Patient is here for follow-up regarding of flank pain and dysuria. * Patient reports that flank pain- bilateral. Denies fever or nausea. endorses urinary frequency and dysuria. * Plan: Reports that his symptoms of slightly improved. Previously was prescribed antibiotics for potential UTI based on the urinalysis results. However the urine culture did not show infection. Reports that he continues to have dysuria. * Plan: Urinalysis again. Significant proteinuria was noticed last time. If it continues to show up then will consider further evaluation. * Elevated LFT - bilirubin: Patient's bilirubin has significantly worsened since last appointment. AST and ALT is elevated. CT scan was ordered at the previous visit. Is scheduled in 2 days.Given the worsening symptoms and increase in bilirubin, CT scan is ordered. Recommended to avoid alcohol consumption. * Plan: Based on the results will consider GI referral if concerning results appear. Will reassess bilirubin before the next appointment. * Patient has been having worsening of his low back pain has been unstable on his feet and has had multiple falls due to this. He does not feel safe going back to work with the current condition. He would like to apply for short-term disability again which I think is appropriate with his current condition. He will send us paperwork regarding this. He has not been able to go back to work since January 13, 2022. * Plan: Fill his paperwork for his inability to work since January 13, 2022. Currently hoping to release to work date to be May 24, 2022. However there is a concern that he may not be able to recover by then. * Follow up in 3 months. Sooner if worsening of symptoms. [facility] Work Phone: Hospital course Narrative No data available for this section [facility] Discharge instructions* Activity:activity as tolerated. * Patient Instructions:- CALL 911 IF YOU HAVE ANY OF THE SIGNS AND SYMPTOMS OF HEART FAILURE: 1. Chest pain 2. Significant Shortness of breath 3. Fainting. - Notify your physician immediately if you have shortness of breath; weight gain of 3 lbs. or more; fatigue and loss of energy; swelling of lower extremities or abdomen; dizziness or fainting; change of appetite; and frequent coughing. - Patientreceived Living With Heart Failure book. - Daily weight on the same scale, same time after voiding and before eating. - Maintain daily weight log. * Activity (Heart Failure):- Balance activity with rest, gradually increase your activity as tolerated. - Exercise as prescribed by your physician. * General Wound Care:- Do NOT allow anyone but the Vascular Surgeon to remove janneth or sutures. * Follow Up Appointment 1:Physician/Dept/Service: Dr. Herman for Referral: [facility] to Schedule in: 1 week * Follow Up Appointment 2:Physician/Dept/Service: Dr. Bah with ultrasound of right legScheduled Date/Time: 02-May-2021 01:00Location: [place] [facility], [address] [place] [address]Ghshl Number: [phone]: Please follow up with Dr. Bah and ultrasound completed 05/02/21 at 1:00PM as scheduled. [facility] Other Phone (unformatted): [phone] Discharge instructions No data available for this section [facility] Progress note No data available for this section [facility] Reason for visit Narrative* Diagnostic Procedure Only (Routine) - Authorized Specialty Diagnoses / Procedures Referred By Contac t Referred To Contact Radiology / RADIO CT SCAN Diagnoses Headache, unspecified R51.9, Dr Chantale Cabral, order in Scan Doc, sched w/office Procedures CT HEAD/BRAIN W/O CONTRAST MATERIAL CT WO ALVARO B 400 Chantale Cabral MD [address] [facility] [address] [id number] Scan [facility] [address] [place] [id number] Referral ID Status Reason Start Date Expiration Date V isits Requested Visits Authorized [id number] Authorized 04/08/2024 05/24/2024 2 2 [facility] Summary Purpose Family History No Family History Records Found Mother Name Dates Details Family history of chronic ob structive pulmonary disease(V17.6, Z82.5) Status:Active Mother Name Dates Details Family history of chronic ob structive pulmonary disease(V17.6, Z82.5) Status:Active Mother Name Dates Details Family history of chronic ob structive pulmonary disease(V17.6, Z82.5) Status:Active Mother Name Dates Details Family history of chronic ob structive pulmonary disease(V17.6, Z82.5) Status:Active Unknown Family Member Name Dates Details Family history of chronic ob structive pulmonary disease: Mother(V17.6, Z82.5) Status:Active Unknown Family Member Name Dates Details Family history of chronic ob structive pulmonary disease: Mother(V17.6, Z82.5) Status:Active Unknown Family Member Name Dates Details Family history of chronic ob structive pulmonary disease: Mother(V17.6, Z82.5) Status:Active Unknown Family Member Name Dates Details Family history of chronic ob structive pulmonary disease: Mother(V17.6, Z82.5) Status:Active Unknown Family Member Name Dates Details Family history of chronic ob structive pulmonary disease: Mother(V17.6, Z82.5) Status:Active Unknown Family Member Name Dates Details Family history of chronic ob structive pulmonary disease: Mother(V17.6, Z82.5) Status:Active Unknown Family Member Name Dates Details Family history of chronic ob structive pulmonary disease: Mother(V17.6, Z82.5) Status:Active Unknown Family Member Name Dates Details Family history of chronic ob structive pulmonary disease: Mother(V17.6, Z82.5) Status:Active Unknown Family Member Name Dates Details Family history of chronic ob structive pulmonary disease: Mother(V17.6, Z82.5) Status:Active Unknown Family Member Name Dates Details Family history of chronic ob structive pulmonary disease: Mother(V17.6, Z82.5) Status:Active Unknown Family Member Name Dates Details Family history of chronic ob structive pulmonary disease: Mother(V17.6, Z82.5) Status:Active Unknown Family Member Name Dates Details Family history of chronic ob structive pulmonary disease: Mother(V17.6, Z82.5) Status:Active Unknown Family Member Name Dates Details Family history of chronic ob structive pulmonary disease: Mother(V17.6, Z82.5) Status:Active Unknown Family Member Name Dates Details Family history of chronic ob structive pulmonary disease: Mother(V17.6, Z82.5) Status:Active Unknown Family Member Name Dates Details Family history of chronic ob structive pulmonary disease: Mother(V17.6, Z82.5) Status:Active Unknown Family Member Name Dates Details Family history of chronic ob structive pulmonary disease: Mother(V17.6, Z82.5) Status:Active Unknown Family Member Name Dates Details Family history of chronic ob structive pulmonary disease: Mother(V17.6, Z82.5) Status:Active Unknown Family Member Name Dates Details Family history of chronic ob structive pulmonary disease: Mother(V17.6, Z82.5) Status:Active Unknown Family Member Name Dates Details Family history of chronic ob structive pulmonary disease: Mother(V17.6, Z82.5) Status:Active Unknown Family Member Name Dates Details Family history of chronic ob structive pulmonary disease: Mother(V17.6, Z82.5) Status:Active Unknown Family Member Name Dates Details Family history of chronic ob structive pulmonary disease: Mother(V17.6, Z82.5) Status:Active Unknown Family Member Name Dates Details Family history of chronic ob structive pulmonary disease: Mother(V17.6, Z82.5) Status:Active Unknown Family Member Name Dates Details Family history of chronic ob structive pulmonary disease: Mother(V17.6, Z82.5) Status:Active Unknown Family Member Name Dates Details Family history of chronic ob structive pulmonary disease: Mother(V17.6, Z82.5) Status:Active Unknown Family Member Name Dates Details Family history of chronic ob structive pulmonary disease: Mother(V17.6, Z82.5) Status:Active Unknown Family Member Name Dates Details Family history of chronic ob structive pulmonary disease: Mother(V17.6, Z82.5) Status:Active Unknown Family Member Name Dates Details Family history of chronic ob structive pulmonary disease: Mother(V17.6, Z82.5) Status:Active Unknown Family Member Name Dates Details Family history of chronic ob structive pulmonary disease: Mother(V17.6, Z82.5) Status:Active Unknown Family Member Name Dates Details Family history of chronic ob structive pulmonary disease: Mother(V17.6, Z82.5) Status:Active Unknown Family Member Name Dates Details Family history of chronic ob structive pulmonary disease: Mother(V17.6, Z82.5) Status:Active Unknown Family Member Name Dates Details Family history of chronic ob structive pulmonary disease: Mother(V17.6, Z82.5) Status:Active Unknown Family Member Name Dates Details Family history of chronic ob structive pulmonary disease: Mother(V17.6, Z82.5) Status:Active Unknown Family Member Name Dates Details Family history of chronic ob structive pulmonary disease: Mother(V17.6, Z82.5) Status:Active Unknown Family Member Name Dates Details Family history of chronic ob structive pulmonary disease: Mother(V17.6, Z82.5) Status:Active Advance Directives No Advanced Directives Records FoundDocuments on File Type Date Recorded Patient Draw Furnace Tender Expl anation Advance Directives and Living Will Documents on File Type Date Recorded Patient Draw Furnace Tender Expl anation Advance Directives and Living Will Documents on File Type Date Recorded Patient Draw Furnace Tender Expl anation Advance Directives and Livin g Will 05/17/2020 6:56 PM Latest Code Status on File Code Status Date Activated Date Inactivated Comments Full Code 05/17/2020 8:24 PM 05/19/2020 7:45 PM History of Present Illness * Jamal Bee MD - 07/05/2019 4:50 PM KAYCEE Wallace is seen for bilateral elbow pain, left worse than the right. He has had pain about 6 months. There has been no fall or injury. 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 He had an x-ray and was told he had a mass or something and was referred here. His pain started out posterior,but now it is concentrated laterally in each. He has pain with cable respooler and lifting objects. He has nothad a lot of numbness. PAST HISTORY He has had a clavicle fracture and surgery. 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 Smokes. Reports occasional beer. No drug use. REVIEW OF SYSTEMS Reveals numbness in his arms and some weakness. He gets shortness of breath. Hearing loss. He has had a history of bronchitis. PHYSICAL EXAM General: Reveals a pleasant, white male in no acute distress. His general exam is unremarkable. He is alert and oriented x3. Musculoskeletal: He has full range of motion of his neck, shoulders, and elbow. Hands look normal. He is neurovascularly intact with good reflexes. He has tenderness primarily at the lateral epicondyle of both elbows with full motion. Good pronation and supination. Pain with resisted cable respooler and extension of his wrist. X-rays from [facility] 06/07/2019 reveal no arthritis or other abnormalities. He does have asoft tissue swelling over the olecranon bursa that is mild on the left side, none on the right. He has on the right side a metallic, looks like a piece of a hammer or some metal object. It is about 2mm or so. It is in the soft tissues, not affecting the joint. IMPRESSION Bilateral lateral epicondylitis with a metallic soft tissue foreign body in the right side. Now, I have told him I did not feel that was causing his symptoms in any way. It is probably related to hiswork. PLAN Tennis elbow band. Naproxen 2 in the morning and 2 at night. I offered steroid injections. He wantsto think about it and live with it for awhile, and if it gets bad enough, he will come back for injections. Otherwise activity as tolerated, p.r.n. return. documented in this encounter* Macy Santana MD - 04/14/2020 12:46 PM EST PATIENT NAME: Narciso Glez [facility] [address] [place] [id number] : 1965 DATE OF VISIT: 04/14/2020 SS#: [id number] PROVIDER: Macy Santana MD Chief Complaint Patient presents with Foot Pain Pt states 2 months ago he stepped a thorn. Pt states he does not think he pulled out all the thorn.Pt states worst yesterday Pt likely has FB but it is deep and I feel he needs a surgical procedure - referred to podiatry. Will put him on keflex prophylactically. Described to him to pad with a hole in the center - warm soaks - f/u podiatry.\ We both wore masks Not addressed - flu shot SUBJECTIVE 54 y.o. male presents Foot Pain (Pt states 2 months ago he stepped a thorn. Pt states he does not think he pulled out all the thorn. Pt states worst yesterday) C/o stepped on 3 black thorn approx 3 mos ago - was in flip flops. Pulled a piece of it out, but it has gotten worse. Has picked at it and squeezed it - drawing salve - remains painful. Works as a machinits - constantly on concrete. No f/c. Is swollen. Tetanus UTD Foot Pain This is a new problem. The current episode started more than 1 month ago. The problem occurs constantly. The problem has been gradually worsening. Associated symptoms include joint swelling. Pertinent negatives include no chest pain, chills, coughing or fever. The symptoms are aggravated by walking. Treatments tried: see hpi. MEDICAL ISSUES Past Medical History: Diagnosis Date COPD (chronic obstructive pulmonary disease) ([facility]) Fractures There is no problem list on file for this patient. SOCIAL HISTORY Social History Socioeconomic History Marital status: Legally Spouse name: Not on file Number of children: Not on file Years of education: Not on file Highest education level: Not on file Occupational History Not on file Social Needs Financial resource strain: Not on file Food insecurity Worry: Not on file Inability: Not on file Transportation needs Medical: Not on file Non-medical: Not on file Tobacco Use Smoking status: Current Every Day Smoker Packs/day: 1.00 Years: 30.00 Pack years: 30.00 Types: Cigarettes Smokeless tobacco: Never Used Substance and Sexual Activity Alcohol use: Yes Comment: occasional Drug use: Never Sexual activity: Not on file Lifestyle Physical activity Days per week: Not on file Minutes per session: Not on file Stress: Not on file Relationships Social connections Talks on phone: Not on file Gets together: Not on file Attends congregational service: Not on file Active member of club or organization: Not on file Attends meetings of clubs or organizations: Not on file Relationship status: Not on file Other Topics Concern Not on file Social History Narrative Not on file FAMILY HISTORY History reviewed. No pertinent family history. REVIEW OF SYSTEMS Review of Systems Constitutional: Negative for chills and fever. Respiratory: Negative for cough and shortness of breath. Cardiovascular: Negative for chest pain. Genitourinary: Nocturia - no Musculoskeletal: Positive for joint swelling. MEDICATIONS PRIOR TO VISIT Current Outpatient Medications on File Prior to Visit Medication Sig Dispense Refill nitroGLYCERIN (NITROSTAT) 0.[address] 0.4 mg under the tongue every 5 (five) minutes as needed . sildenafil, antihypertens, (REVATIO) 20 mg tablet Take 1-5 tabs by mouth 45 min before sexual intercourse. No more than 5 pills in 24 hrs. No current facility-administered medications on file prior to visit. ALLERGIES/INTOLERANCES Allergies Allergen Reactions Dye OBJECTIVE BP 125/82 Comment: recheck ncb Pulse 98 Temp 97.6 F (36.4 C) (Temporal) Resp 16 Ht 5' 10 Wt 74.8 kg (165 lb) SpO2 94% BMI 23.68 kg/m Physical Exam Constitutional: He appears well-developed and well-nourished. HENT: Head: Normocephalic and atraumatic. Eyes: Conjunctivae are normal. No scleral icterus. Cardiovascular: Normal rate, regular rhythm, normal heart sounds and intact distal pulses. Pulmonary/Chest: Effort normal and breath sounds normal. Musculoskeletal: General: Tenderness present. No deformity or edema. Comments: Has a callous with a hard central aspect that is tendee. No fluctuance or crepitus Neurological: He is alert. Skin: Skin is warm and dry. Psychiatric: He has a normal mood and affect. His behavior is normal. PROCEDURE Procedures Results No results found for this or any previous visit (from the past 168 hour(s)). ASSESSMENT/PLAN (expressed as patient instructions): No diagnosis found. No follow-ups on file. ADDITIONAL CLINICAL COMMENTS ORDERS PLACED THIS VISIT No orders of the defined types were placed in this encounter. MEDICATION LIST AT END OF VISIT Current Outpatient Medications Medication Sig Dispense Refill nitroGLYCERIN (NITROSTAT) 0.[address] 0.4 mg under the tongue every 5 (five) minutes as needed . sildenafil, antihypertens, (REVATIO) 20 mg tablet Take 1-5 tabs by mouth 45 min before sexual intercourse. No more than 5 pills in 24 hrs. No current facility-administered medications for this visit. documented in this encounter* Jakub Styles MD - 05/19/2020 11:50 AM EST He is postoperative day #1 status post right hip intramedullary nailing. Says he feels great, cannot believe how much better he feels. Wants to go home. PHYSICAL EXAMINATION Vital Signs: Stable. Afebrile, saturating 96% on room air. Musculoskeletal: Wound is clean, dry, intact. No erythema. No lymphangitis. No cellulitis. Chest, Abdomen, Cardiac: Exam is benign. Labs are within normal limits. IMPRESSION Postoperative day 1 right hip intramedullary nail. PLAN He will proceed home with home physical therapy, home nursing. I will see him in 2 weeks in my [place] office for staple removal. He will use aspirin twice daily as DVT prophylaxis. D 05/19/2020 11:51 [id number] 05/19/2020 12:06 MCB/MODL * Moon Giordano, THEODORE - 05/19/2020 5:49 AM EST [facility] DAILY PROGRESS NOTE MECHAN ISM: Fall DIAGNOSIS / REASON FOR CONSULT: Closed nondisplaced intertrochanteric fracture of right femur (HCC) Assessment & Plan S/p below procedure; hgb stable today Therapies, pain controlled Lovenox [address] Styles Dispo planning EtOH dependence (HCC) Assessment & Plan -Daily drinker - Monitor for signs of withdrawal SURGERIES/PROCEDURES: Date Operation/Procedure Provider Name 05/18 Closed reduction with right hip intramedullary daksha fixation. Jonathon TODAY' S ASSESSMENT AND PLAN OF CARE: 1. As above DISPOSITION - Dispo planning, hopeful dc later today CHIEF COMPLAINT/ HPI / PFSHx / EVENTS OVER LAST 24HRS: No overnight events. Patient ambulating well, tolerating diet, pain controlled. Wanting to ho home today REVIEW OF SYSTEMS: Other than the above items the remainder of the complete ROS is otherwise unchanged from admission. PHYSICAL EXAM: Temp: [97.5 F (36.4 C)-98.2 F (36.8 C)] 97.9 F (36.6 C) Heart Rate: [67-97] 67 Resp: [12-18] 13 BP: (121-158)/(74-102) 127/86 GENERAL: Appears age appropriate. No acute distress. NEUROLOGICAL: Alert and oriented X 3. Follows commands with extremities x4. Pupils equal, round, reactive to light. No focal neurologic deficits noted. GCS = 15 CARDIOVASCULAR: Regular rate and rhythm. No peripheral edema noted. Telemetry NSR 60's. 2+ pulses radial/DP/PT bilaterally. RESPIRATORY: Respiratory effort unlabored without use of accessory muscles. RA ABDOMINAL: Rounded, soft, nontender, nondistended. No guarding or peritoneal signs. GENITOURINARY: Voiding without difficulty. MUSCULOSKELETAL: No gross deformity - neurovascularly intact x 4 SKIN: Skin warm and dry. Normal turgor. No rashes or lesions. WOUNDS/INCISIONS: right aquacel dressing intact without new drainage Intake/Output Summary (Last 24 hours) at 05/19/2020 0549 Last data filed at 05/19/2020 0452 Gross per 24 hour Intake 1450 ml Output 975 ml Net 475 ml IMAGING [briefly note any results pertinent to today's evaluation]: None new today LABS Lab Results Component Value Date HGB 13.1 (L) 05/19/2020 DAILY CHECKLIST: *Need for Restraints: no *Need for Urinary Catheter: no *Need for Central Access Devices: no *Stress Ulcer Prophylaxis: diet *VTE Prophylaxis (Body mass index is 22.96 kg/m ., Estimated Creatinine Clearance: 96.4 mL/min (by C-G formula based on SCr of 0.9 mg/dL).): lovenox *Code Status: Full Associated attestation - DaquanRajni MD - 05/19/2020 10:29 AM EST Patient Name: Narciso Glez MR #: [id number] The patient was independently seen and examined by me, the attending surgeon. I have independently reviewed the patient's imaging and laboratory data. I have reviewed the below note and agree with the documented history, exam, and plan of care, with the following additions and corrections: No complaints. Pain well controlled. Tolerating diet. +BM. Walking with walker Physical Exam: NAD, AAO, GCS 15 EOMI NLR Abdomen soft, NT/ND MUÑOZ x4 Assessment and Plan: No changes noted from the physical exam and plan noted in the associated note. Narciso Glez is a 54 y.o. male s/p fall with right femur fracture. Dispo planning * Rajni Butt MD - 05/18/2020 9:13 AM EST [facility] [place] PATIENT: Narciso Glez DATE / TIME: 05/18/20 9:13 AM POS: Office AGE: 54 y.o. : 1965 RACE: [1] SEX: male PCP: Jus Franco MD REFERRAL: No ref. provider found TOS: SUBJECTIVE: C/o hip pain OBJECTIVE: PACU Vitals 05/18/20 0320 BP: 136/86 Pulse: 88 Resp: 15 Temp: 97.8 F (36.6 C) SpO2: 93% NAD A&O GCS15 PERRLA EOMI Normocephalic, atraumatic Abd: s/nt/nd Bilateral 2+ DP and PT ASSESSMENT: The patient is a 54-year-old male s/p fall with right femur fracture PLAN: To OR today with Dr. Styles. Therapy to follow. * Sandra Caballero CNP - 05/18/2020 5:29 AM EST [place] [facility] DAILY PROGRESS NOTE MECHAN ISM: Mechanical fal DIAGNOSIS / REASON FOR CONSULT: Closed nondisplaced intertrochanteric fracture of right femur (HCC) Assessment & Plan S/p mechanical fall. NPO and MIVF MRSA negative Bed rest, pain control. Therapies and Lovenox when appropriate. * Fall at home, initial encounter Assessment & Plan No LOC, no AC/AP. Daily smoker/ etoh use. Nicotine patch. Monitor for s/s of etoh withdrawal. SURGERIES/PROCEDURES: Date Operation/Procedure Provider Name TODAY' S ASSESSMENT AND PLAN OF CARE: 1. As above. DISPOSITION - To be determined. CHIEF COMPLAINT/ HPI / PFSHx / EVENTS OVER LAST 24HRS: No events overnight. States pain is still 8/10 with oral and IV pain medications. Muscle relaxer and Tylenol not given at this point will discuss with nursing and increase dosing if that does not control pain. Denies nausea or vomiting. REVIEW OF SYSTEMS: Lying in bed. Other than the above items the remainder of the complete ROS is otherwise unchanged from admission. PHYSICAL EXAM: Temp: [97.7 F (36.5 C)-98.8 F (37.1 C)] 97.8 F (36.6 C) Heart Rate: [84-106] 88 Resp: [14-18] 15 BP: (116-136)/(72-93) 136/86 GENERAL: Appears age appropriate. No acute distress. NEUROLOGICAL: Alert and oriented X 3. Follows commands with extremities x4, equal strength. No focal neurologic deficits noted. GCS = 15 EYES/EARS/NOSE/MOUTH/THROAT: Atraumatic, normocephalic Neck: supple, symmetrical, trachea midline. Sclera non-icteric. External ear - normal CARDIOVASCULAR: Regular rate and rhythm. No clicks, rubs, murmurs or gallops noted. No peripheral edema noted. Telemetry NSR 84. 2+ pulses radial/DP/PT bilaterally. RESPIRATORY: Lungs, clear to auscultation bilaterally. No rhonchi, wheezes or crackles. Respiratoryeffort unlabored without use of accessory muscles. RA. ABDOMINAL: Rounded, soft, nontender, nondistended, normal bowel sounds. No guarding or peritoneal signs. + Flatus. GENITOURINARY: Voiding without difficulty. Urine yellow and clear. MUSCULOSKELETAL: Right leg shorter than left with poor mobility- neurovascularly intact x 4 SKIN: Skin warm and dry. Normal turgor. No rashes or lesions. Intake/Output Summary (Last 24 hours) at 05/18/2020 0530 Last data filed at 05/17/2020 2106 Gross per 24 hour Intake Output 275 ml Net -275 ml IMAGING [briefly note any results pertinent to today's evaluation]: No new images. LABS Lab Results Component Value Date WBC 11.45 (H) 05/18/2020 HGB 14.6 05/18/2020 HCT 42.7 05/18/2020 MCV 116.3 (H) 05/18/2020 PLT 186 05/18/2020 RBC 3.67 (L) 05/18/2020 Lab Results Component Value Date GLUCOSE 118 (H) 05/18/2020 CALCIUM 7.7 (L) 05/18/2020 NA 135 05/18/2020 K 3.9 05/18/2020 CL 105 05/18/2020 BUN 7 (L) 05/18/2020 CREATININE 0.90 05/18/2020 Lab Results Component Value Date ALT 33 05/18/2020 AST 28 05/18/2020 ALKPHOS 116 05/18/2020 BILITOT 1.3 05/18/2020 PT/INR 13.6/1.1 DAILY CHECKLIST: *Need for Restraints: No *Need for Urinary Catheter: No *Need for Central Access Devices: No *Stress Ulcer Prophylaxis: Oral Pepcid. *VTE Prophylaxis (Body mass index is 22.96 kg/m ., Estimated Creatinine Clearance: 96.4 mL/min (by C-G formula based on SCr of 0.9 mg/dL).): OR today, start Lovenox post op. *Code Status: Full documented in this encounter* Jakub Styles MD - 05/19/2020 11:50 AM EST He is postoperative day #1 status post right hip intramedullary nailing. Says he feels great, cannot believe how much better he feels. Wants to go home. PHYSICAL EXAMINATION Vital Signs: Stable. Afebrile, saturating 96% on room air. Musculoskeletal: Wound is clean, dry, intact. No erythema. No lymphangitis. No cellulitis. Chest, Abdomen, Cardiac: Exam is benign. Labs are within normal limits. IMPRESSION Postoperative day 1 right hip intramedullary nail. PLAN He will proceed home with home physical therapy, home nursing. I will see him in 2 weeks in my [place] office for staple removal. He will use aspirin twice daily as DVT prophylaxis. D 05/19/2020 11:51 [id number] T 05/19/2020 12:06 MCB/MODL * Moon Giordano CNP - 05/19/2020 5:49 AM EST [place] [facility] DAILY PROGRESS NOTE MECHAN ISM: Fall DIAGNOSIS / REASON FOR CONSULT: Closed nondisplaced intertrochanteric fracture of right femur (HCC) Assessment & Plan S/p below procedure; hgb stable today Therapies, pain controlled Lovenox [address] Styles Dispo planning EtOH dependence (HCC) Assessment & Plan -Daily drinker - Monitor for signs of withdrawal SURGERIES/PROCEDURES: Date Operation/Procedure Provider Name 05/18 Closed reduction with right hip intramedullary daksha fixation. Jonathon TODAY' S ASSESSMENT AND PLAN OF CARE: 1. As above DISPOSITION - Dispo planning, hopeful dc later today CHIEF COMPLAINT/ HPI / PFSHx / EVENTS OVER LAST 24HRS: No overnight events. Patient ambulating well, tolerating diet, pain controlled. Wanting to ho home today REVIEW OF SYSTEMS: Other than the above items the remainder of the complete ROS is otherwise unchanged from admission. PHYSICAL EXAM: Temp: [97.5 F (36.4 C)-98.2 F (36.8 C)] 97.9 F (36.6 C) Heart Rate: [67-97] 67 Resp: [12-18] 13 BP: (121-158)/(74-102) 127/86 GENERAL: Appears age appropriate. No acute distress. NEUROLOGICAL: Alert and oriented X 3. Follows commands with extremities x4. Pupils equal, round, reactive to light. No focal neurologic deficits noted. GCS = 15 CARDIOVASCULAR: Regular rate and rhythm. No peripheral edema noted. Telemetry NSR 60's. 2+ pulses radial/DP/PT bilaterally. RESPIRATORY: Respiratory effort unlabored without use of accessory muscles. RA ABDOMINAL: Rounded, soft, nontender, nondistended. No guarding or peritoneal signs. GENITOURINARY: Voiding without difficulty. MUSCULOSKELETAL: No gross deformity - neurovascularly intact x 4 SKIN: Skin warm and dry. Normal turgor. No rashes or lesions. WOUNDS/INCISIONS: right aquacel dressing intact without new drainage Intake/Output Summary (Last 24 hours) at 05/19/2020 0549 Last data filed at 05/19/2020 0452 Gross per 24 hour Intake 1450 ml Output 975 ml Net 475 ml IMAGING [briefly note any results pertinent to today's evaluation]: None new today LABS Lab Results Component Value Date HGB 13.1 (L) 05/19/2020 DAILY CHECKLIST: *Need for Restraints: no *Need for Urinary Catheter: no *Need for Central Access Devices: no *Stress Ulcer Prophylaxis: diet *VTE Prophylaxis (Body mass index is 22.96 kg/m ., Estimated Creatinine Clearance: 96.4 mL/min (by C-G formula based on SCr of 0.9 mg/dL).): lovenox *Code Status: Full Associated attestation - Rajni Butt MD - 05/19/2020 10:29 AM EST Patient Name: Narciso Glez MR #: [id number] The patient was independently seen and examined by me, the attending surgeon. I have independently reviewed the patient's imaging and laboratory data. I have reviewed the below note and agree with the documented history, exam, and plan of care, with the following additions and corrections: No complaints. Pain well controlled. Tolerating diet. +BM. Walking with walker Physical Exam: NAD, AAO, GCS 15 EOMI NLR Abdomen soft, NT/ND MUÑOZ x4 Assessment and Plan: No changes noted from the physical exam and plan noted in the associated note. Narciso Glez is a 54 y.o. male s/p fall with right femur fracture. Dispo planning * Rajni Butt MD - 05/18/2020 9:13 AM EST [facility] [place] PATIENT: Narciso Glez DATE / TIME: 05/18/20 9:13 AM POS: Office AGE: 54 y.o. : 1965 RACE: [1] SEX: male PCP: Jus Franco MD REFERRAL: No ref. provider found TOS: SUBJECTIVE: C/o hip pain OBJECTIVE: PACU Vitals 05/18/20 0320 BP: 136/86 Pulse: 88 Resp: 15 Temp: 97.8 F (36.6 C) SpO2: 93% NAD A&O GCS15 PERRLA EOMI Normocephalic, atraumatic Abd: s/nt/nd Bilateral 2+ DP and PT ASSESSMENT: The patient is a 54-year-old male s/p fall with right femur fracture PLAN: To OR today with Dr. Styles. Therapy to follow. * Sandra Caballero CNP - 05/18/2020 5:29 AM EST [place] [facility] DAILY PROGRESS NOTE MECHAN ISM: Mechanical fal DIAGNOSIS / REASON FOR CONSULT: Closed nondisplaced intertrochanteric fracture of right femur (HCC) Assessment & Plan S/p mechanical fall. NPO and MIVF MRSA negative Bed rest, pain control. Therapies and Lovenox when appropriate. * Fall at home, initial encounter Assessment & Plan No LOC, no AC/AP. Daily smoker/ etoh use. Nicotine patch. Monitor for s/s of etoh withdrawal. SURGERIES/PROCEDURES: Date Operation/Procedure Provider Name TODAY' S ASSESSMENT AND PLAN OF CARE: 1. As above. DISPOSITION - To be determined. CHIEF COMPLAINT/ HPI / PFSHx / EVENTS OVER LAST 24HRS: No events overnight. States pain is still 8/10 with oral and IV pain medications. Muscle relaxer and Tylenol not given at this point will discuss with nursing and increase dosing if that does not control pain. Denies nausea or vomiting. REVIEW OF SYSTEMS: Lying in bed. Other than the above items the remainder of the complete ROS is otherwise unchanged from admission. PHYSICAL EXAM: Temp: [97.7 F (36.5 C)-98.8 F (37.1 C)] 97.8 F (36.6 C) Heart Rate: [84-106] 88 Resp: [14-18] 15 BP: (116-136)/(72-93) 136/86 GENERAL: Appears age appropriate. No acute distress. NEUROLOGICAL: Alert and oriented X 3. Follows commands with extremities x4, equal strength. No focal neurologic deficits noted. GCS = 15 EYES/EARS/NOSE/MOUTH/THROAT: Atraumatic, normocephalic Neck: supple, symmetrical, trachea midline. Sclera non-icteric. External ear - normal CARDIOVASCULAR: Regular rate and rhythm. No clicks, rubs, murmurs or gallops noted. No peripheral edema noted. Telemetry NSR 84. 2+ pulses radial/DP/PT bilaterally. RESPIRATORY: Lungs, clear to auscultation bilaterally. No rhonchi, wheezes or crackles. Respiratoryeffort unlabored without use of accessory muscles. RA. ABDOMINAL: Rounded, soft, nontender, nondistended, normal bowel sounds. No guarding or peritoneal signs. + Flatus. GENITOURINARY: Voiding without difficulty. Urine yellow and clear. MUSCULOSKELETAL: Right leg shorter than left with poor mobility- neurovascularly intact x 4 SKIN: Skin warm and dry. Normal turgor. No rashes or lesions. Intake/Output Summary (Last 24 hours) at 05/18/2020 0530 Last data filed at 05/17/2020 2106 Gross per 24 hour Intake Output 275 ml Net -275 ml IMAGING [briefly note any results pertinent to today's evaluation]: No new images. LABS Lab Results Component Value Date WBC 11.45 (H) 05/18/2020 HGB 14.6 05/18/2020 HCT 42.7 05/18/2020 MCV 116.3 (H) 05/18/2020 PLT 186 05/18/2020 RBC 3.67 (L) 05/18/2020 Lab Results Component Value Date GLUCOSE 118 (H) 05/18/2020 CALCIUM 7.7 (L) 05/18/2020 NA 135 05/18/2020 K 3.9 05/18/2020 CL 105 05/18/2020 BUN 7 (L) 05/18/2020 CREATININE 0.90 05/18/2020 Lab Results Component Value Date ALT 33 05/18/2020 AST 28 05/18/2020 ALKPHOS 116 05/18/2020 BILITOT 1.3 05/18/2020 PT/INR 13.6/1.1 DAILY CHECKLIST: *Need for Restraints: No *Need for Urinary Catheter: No *Need for Central Access Devices: No *Stress Ulcer Prophylaxis: Oral Pepcid. *VTE Prophylaxis (Body mass index is 22.96 kg/m ., Estimated Creatinine Clearance: 96.4 mL/min (by C-G formula based on SCr of 0.9 mg/dL).): OR today, start Lovenox post op. *Code Status: Full documented in this encounter* Jakub Styles MD - 06/02/2020 12:08 PM EST Dictation on: 06/02/2020 12:09 PM by: JAKUB STYLES [[id number]] documented in this encounter* Trupti Paez LPN - 06/22/2020 11:02 AM EST Patient called his prescription for oxycodone isn't at the [facility] in [place]. Spoke with [facility] in [place] they do not have the prescription. Prescription is at the [facility] in [place].they are unable to send to the [facility] in [place]. documented in this encounter* Jakub Styles MD - 07/06/2020 6:22 PM EST Dictation on: 07/06/2020 6:24 PM by: JAKUB STYLES [[id number]] documented in this encounter* Jakub Styles MD - 08/03/2020 5:52 PM EST Dictation on: 08/03/2020 5:53 PM by: JAKUB STYLES [[id number]] documented in this encounter Assessments Diagnosis Bilateral elbow joint pain Diagnosis Foreign body in foot, left, initial encounter- Primary Diagnosis Fall at home, initial encounter- Primary Closed nondisplaced intertrochanteric fracture of femur, unspecified laterality, initial encounter ([facility]) Closed nondisplaced intertrochanteric fracture of right femur, initial encounter ([facility]) EtOH dependence ([facility]) Diagnosis Closed nondisplaced intertrochanteric fracture of right femur with routine healing, subsequent encounter- Primary Diagnosis Closed nondisplaced intertrochanteric fracture of right femur with routine healing, subsequent encounter- Primary Acute pain due to trauma Diagnosis Closed nondisplaced intertrochanteric fracture of right femur with routine healing, subsequent encounter- Primary Reason for Referral Status Reason Specialty Diagnoses / Procedures Referred By Contact Referred To Contact Authorized Specialty Services Required/Patient 's Best Interest Podiatry Diagnoses Foreign body in foot, left, initial encounter Macy Santana MD [address] [place] [address] Dina Rodriguez DPM [address] [place] [address] Hospital Course * Eunice Randhawa CNP - 05/19/2020 12:32 PM EST DISCHARGE SUMMARY Patient: Narciso Glez Date of : 1965 Site: [facility] Provider: Jus Franco MD Admit Date: 05/17/2020 Discharge Date/Time: 05/19/2020 this afternoon Disposition: Good Clinical Summary Hospital Course: Mr. Glez is a 54 year old male with medical history of COPD, rib and clavicle fracture with history of clavicle surgical repair that presented to the ED after slipping on his hardwood floor and falling directly onto his right hip, he was unable to get up and had to crawl over to his phone for help. He did not hit his head or any other body location. Dr. Styles called for + R intertrochanteric fx and able schedule surgery for 05/18. Pt has been working with therapies and ambulating halls; diet has advanced, without complication. DC with plans as below. Discharge Diagnoses: Closed nondisplaced intertrochanteric fracture of right femur (HCC) Assessment & Plan S/p below procedure Therapies recs without DC needs, pain controlled ASA BID at DC per Dr Styles F/u with Dr. Styles 06/01/2020 EtOH dependence (HCC) Assessment & Plan -Daily drinker. Surgeries: 05/18/20 INTRAMEDULLARY NAILING FEMUR RIGHT SHORT NAIL Consults: Procedures Allergies: Dye Discharge Diet: Resume home diet Condition: Good Discharge Medications: Current Discharge Medication List START taking these medications Details acetaminophen (TYLENOL) 325 MG tablet Take 2 (two) tablets (650 mg total) by mouth every 6 (six) hours as needed . Qty: 28 tablet, Refills: 0 aspirin 325 MG buffered tablet Take 1 (one) tablet (325 mg total) by mouth 2 (two) times a day . Qty: 60 tablet, Refills: 0 omeprazole (PRILOSEC OTC) 20 MG tablet Take 1 (one) tablet (20 mg total) by mouth daily . Qty: 30 tablet, Refills: 0 oxyCODONE (ROXICODONE) 5 MG immediate release tablet Take 1 (one) tablet (5 mg total) by mouth every 6 (six) hours as needed (Days supply per fill: 5) . Qty: 20 tablet, Refills: 0 Associated Diagnoses: Closed nondisplaced intertrochanteric fracture of femur, unspecified laterality, initial encounter ([facility]) polyethylene glycol (Miralax) 17 gram powder Take 17 (seventeen) g by mouth daily for 7 days . Qty: 255 g, Refills: 0 CONTINUE these medications which have NOT CHANGED Details nitroGLYCERIN (NITROSTAT) 0.[address] 0.4 mg under the tongue every 5 (five) minutes as needed . sildenafil, antihypertens, (REVATIO) 20 mg tablet Take 1-5 tabs by mouth 45 min before sexual intercourse. No more than 5 pills in 24 hrs. Physician(s) Family Provider: Jus Franco MD, Address: [address] [place] [address] / [place] [address] Follow Up: Jakub Styles MD [address] [place], [place] [id number] Follow up on 06/01/2020 Patient instructions, including activity, were given to the patient/family at discharge. Please seethe After Visit Summary in the electronic medical record for details. Time spent on discharge: < 30 minutes Completed by: Eunice Randhawa CNP on 05/19/20, 12:32 PM documented in this encounter* Eunice Randhawa CNP - 05/19/2020 12:32 PM EST DISCHARGE SUMMARY Patient: Narciso Glez Date of : 1965 Site: [facility] Provider: Jus Franco MD Admit Date: 05/17/2020 Discharge Date/Time: 05/19/2020 this afternoon Disposition: Good Clinical Summary Hospital Course: Mr. Glez is a 54 year old male with medical history of COPD, rib and clavicle fracture with history of clavicle surgical repair that presented to the ED after slipping on his hardwood floor and falling directly onto his right hip, he was unable to get up and had to crawl over to his phone for help. He did not hit his head or any other body location. Dr. Styles called for + R intertrochanteric fx and able schedule surgery for 05/18. Pt has been working with therapies and ambulating halls; diet has advanced, without complication. DC with plans as below. Discharge Diagnoses: Closed nondisplaced intertrochanteric fracture of right femur (HCC) Assessment & Plan S/p below procedure Therapies recs without DC needs, pain controlled ASA BID at DC per Dr Styles F/u with Dr. Styles 06/01/2020 EtOH dependence ([facility]) Assessment & Plan -Daily drinker. Surgeries: 05/18/20 INTRAMEDULLARY NAILING FEMUR RIGHT SHORT NAIL Consults: Procedures Allergies: Dye Discharge Diet: Resume home diet Condition: Good Discharge Medications: Current Discharge Medication List START taking these medications Details acetaminophen (TYLENOL) 325 MG tablet Take 2 (two) tablets (650 mg total) by mouth every 6 (six) hours as needed . Qty: 28 tablet, Refills: 0 aspirin 325 MG buffered tablet Take 1 (one) tablet (325 mg total) by mouth 2 (two) times a day . Qty: 60 tablet, Refills: 0 omeprazole (PRILOSEC OTC) 20 MG tablet Take 1 (one) tablet (20 mg total) by mouth daily . Qty: 30 tablet, Refills: 0 oxyCODONE (ROXICODONE) 5 MG immediate release tablet Take 1 (one) tablet (5 mg total) by mouth every 6 (six) hours as needed (Days supply per fill: 5) . Qty: 20 tablet, Refills: 0 Associated Diagnoses: Closed nondisplaced intertrochanteric fracture of femur, unspecified laterality, initial encounter ([facility]) polyethylene glycol (Miralax) 17 gram powder Take 17 (seventeen) g by mouth daily for 7 days . Qty: 255 g, Refills: 0 CONTINUE these medications which have NOT CHANGED Details nitroGLYCERIN (NITROSTAT) 0.[address] 0.4 mg under the tongue every 5 (five) minutes as needed . sildenafil, antihypertens, (REVATIO) 20 mg tablet Take 1-5 tabs by mouth 45 min before sexual intercourse. No more than 5 pills in 24 hrs. Physician(s) Family Provider: Jus Franco MD, Address: [address] [place] [address] / [facility] [id number] Follow [facility]: [facility]les [facility] [address] [facility] [id number] Follow up on 06/01/2020 Patient instructions, including activity, were given to the patient/family at discharge. Please seethe After Visit Summary in the electronic medical record for details. Time spent on discharge: < 30 minutes Completed by: Eunice Randhawa CNP on 05/19/20, 12:32 PM documented in this encounter Discharge Instructions * Instructions* Eunice Randhawa CNP - 05/19/2020 ORTHOPEDIC TRAUMA (BONE INJURIES) Weight bearing instructions: Full weight bearing. Wound Care: Keep the dressing clean, dry, and in place until instructed to remove by the orthopedic team ? Wash your hands before and after touching the dressing. ? Keep your incision dry until follow-up visit. ? Sutures and/or janneth will be removed at your follow up appointment. Call the Orthopedic Surgeon office if you develop: ? Persistent or heavy bleeding from your wound/incision ? A fever greater than 101 F ? Redness or drainage at the surgery site ? Unexpected swelling, numbness, tingling or discoloration of extremities ? Severe pain that is not relieved by your pain medicine, ice, and rest Follow-up Care: ? A follow-up appointment should be scheduled for you at discharge. ? Keep this follow up appointment ASPIRIN: Deep vein thrombosis (blood clot) prevention Your injuries and/or surgeries have put you at an increased risk for blood clots. To prevent blood clots you will be encouraged to get out of bed as much as possible, keeping in mind any limitations placed on your activity by your providers. Medication: ASPIRIN Dose: 325 How often: TWICE A DAY Length of Treatment: 30 DAYS, PER YOUR ORTHOPEDIC SURGEON Please use extra caution to prevent bleeding while shaving or brushing your teeth. Please inform your primary care physician of any medications, such as Lovenox, that were initiated while in the hospital. documented in this encounter* Instructions* [place], Eunice Keshia, PRINTER REPAIR TECHNICIAN - 05/19/2020 ORTHOPEDIC TRAUMA (BONE INJURIES) Weight bearing instructions: Full weight bearing. Wound Care: Keep the dressing clean, dry, and in place until instructed to remove by the orthopedic team ? Wash your hands before and after touching the dressing. ? Keep your incision dry until follow-up visit. ? Sutures and/or janneth will be removed at your follow up appointment. Call the Orthopedic Surgeon office if you develop: ? Persistent or heavy bleeding from your wound/incision ? A fever greater than 101 F ? Redness or drainage at the surgery site ? Unexpected swelling, numbness, tingling or discoloration of extremities ? Severe pain that is not relieved by your pain medicine, ice, and rest Follow-up Care: ? A follow-up appointment should be scheduled for you at discharge. ? Keep this follow up appointment ASPIRIN: Deep vein thrombosis (blood clot) prevention Your injuries and/or surgeries have put you at an increased risk for blood clots. To prevent blood clots you will be encouraged to get out of bed as much as possible, keeping in mind any limitations placed on your activity by your providers. Medication: ASPIRIN Dose: 325 How often: TWICE A DAY Length of Treatment: 30 DAYS, PER YOUR ORTHOPEDIC SURGEON Please use extra caution to prevent bleeding while shaving or brushing your teeth. Please inform your primary care physician of any medications, such as Lovenox, that were initiated while in the hospital. documented in this encounter Chief Complaint bilateral feet and ankle swelling x6 months. swelling in R thigh x3 days. bilateral feet and ankle swelling x6 months. swelling in R thigh x3 days. hospital f/u, no concerns today.3 month ov, still getting some swelling in R leg below knee.R leg swelling and changing color.1 week f/u, pt. states there is no improvement in R leg.1 week f/u, pt. states there is no improvement in R leg. f/u hip pain.f/u hip pain.pt. c/o vomiting, low back and lower abdominal pain x4 days, fell 1 week ago.f/u no concerns. Additional Source Comments (unrecognized sect ion and content) No Status Records FoundNo Status Records FoundNo Status Records FoundNo Status Records FoundNo Status Records FoundNo Status Records FoundNo Status Records FoundNo Status Records FoundNo Status Records FoundNo Status Records FoundNo Status Records FoundNo Status Records Found INFORMATION SOURCE (unrecogn ized section and content) DATE CREATED AUTHOR 11/17/2017 [facility] DATE CREATED AUTHOR AUTHOR'S ORGANIZ ATION 04/18/2020 [facility] DATE CREATED AUTHOR AUTHOR'S ORGANIZ ATION 08/07/2020 [facility] DATE CREATED AUTHOR AUTHOR'S ORGANIZ ATION 11/14/2020 [facility] DATE CREATED AUTHOR AUTHOR'S ORGANIZ ATION 08/03/2021 [facility] DATE CREATED AUTHOR AUTHOR'S ORGANIZ ATION 03/03/2022 [facility] DATE CREATED AUTHOR AUTHOR'S ORGANIZ ATION 03/19/2022 [facility] DATE CREATED AUTHOR AUTHOR'S ORGANIZ ATION 05/21/2022 [facility] DATE CREATED AUTHOR AUTHOR'S ORGANIZ ATION 02/23/2024 [facility] DATE CREATED AUTHOR AUTHOR'S ORGANIZ ATION 07/31/2024 [facility] DATE CREATED AUTHOR AUTHOR'S ORGANIZ ATION 08/23/2024 [facility] DATE CREATED AUTHOR AUTHOR'S ORGANIZ ATION 12/02/2024 [facility] Reason for Visit (unrecogniz ed section and content) Reason Comments Pain Status Reason Specialty Diagnoses / Procedures Referred By Contact Referred To Contact Closed Sports Medicine Diagnoses Bilateral elbow joint pain Jus Franco MD [address] [id number] Jamal Bee MD [address] [place], [place] [id number] Reason Comments Foot Pain Pt states 2 months a go he stepped a thorn. Pt states he does not think he pulled out all the thorn. Pt states worst yesterday Reason Comments Fall Status Reason Specialty Diagnoses / Procedures Re ferred By Contact Referred To Contact Diagnoses Fall at home, initial encounter Closed nondisplaced intertrochanteric fracture of femur, unspecified laterality, initial encounter ([facility]) Reason Comments Suture / Staple Removal Wound Check Reason Onset Date Comments Medication Refill 06/20/2020 Reason Onset Date Comments Medication Refill 06/22/2020 Reason Comments Follow-up Jakub Styles MD - 05/18/2020 9:30 AM Rajni Naranjo MD - 05/18/2020 9:13 AM Sandra Powers CNP - 05/17/2020 9:48 PM EST H&P Notes (unrecognized sect ion and content) INTERVAL HISTORY AND PHYSICAL Patient Name: Narciso Glez Admit Date: MR #: [id number] : 1965 The H&P has been reviewed and the patient has been examined. I concur with the findings of the H&P. There are no significant changes. It is appropriate to proceed with the planned procedure. Jakub Styles MD 05/18/2020 9:30 AM [facility] [place] PATIENT: Narciso Glez DATE / TIME: 05/18/20 9:13 AM POS: Office AGE: 54 y.o. : 1965 RACE: [1] SEX: male PCP: Jus Franco MD REFERRAL: No ref. provider found TOS: SUBJECTIVE: C/o hip pain OBJECTIVE: PACU Vitals 05/18/20 0320 BP: 136/86 Pulse: 88 Resp: 15 Temp: 97.8 F (36.6 C) SpO2: 93% NAD A&O GCS15 PERRLA EOMI Normocephalic, atraumatic Abd: s/nt/nd Bilateral 2+ DP and PT ASSESSMENT: The patient is a 54-year-old male s/p fall with right femur fracture PLAN: To OR today with Dr. Styles. Therapy to follow. [place] [facility] SURGICAL HISTORY & PHYSICAL/CONSULTATION NOTE Closed nondisplaced intertrochanteric fracture of right femur (HCC) Assessment & Plan S/p mechanical fall. Regular diet, NPO and MIVF at [place]. MRSA pending, Covid negative. PT/INR/PTT in am. Bed rest, pain control. * Fall at home, initial encounter Assessment & Plan No LOC, no AC/AP. Daily smoker/ etoh use. Nicotine patch. Monitor for s/s of etoh withdrawal. CHIEF COMPLAINT: Right hip/leg pain HISTORY OF PRESENT ILLNESS / INJURY (HPI): [include Pain, Quality, Radiation, Severity, Duration, Timing] Mr. Glez is a 54 year old male with medical history of COPD, rib and clavicle fracture with history of clavicle surgical repair that presents to the ED after slipping on his hardwood floor and falling directly onto his right hip, he was unable to get up and had to crawl over to his phone for help. He denies hitting his head or any other body location. GCS 15, lung sounds clear, +2 pulses throughout, chest wall and pelvis stable, right leg pain with shortening of extremity and pain, no other pain in other extremities. Dr. Styles called and able schedule surgery for 05/18. Dr. Butt updated. AM labs, MRSA swab pending. PAST MEDICAL HISTORY (PMH): Past Medical History: Diagnosis Date COPD (chronic obstructive pulmonary disease) (HCC) Fractures rib, clavicle. Past Surgical History: Procedure Laterality Date CLAVICLE SURGERY Social History Tobacco Use Smoking status: Current Every Day Smoker Packs/day: 1.00 Years: 30.00 Pack years: 30.00 Types: Cigarettes Smokeless tobacco: Never Used Substance Use Topics Alcohol use: Yes Alcohol/week: 84.0 standard drinks Types: 42 Cans of beer, 42 Standard drinks or equivalent per week Comment: 6 total drinks per day. Drug use: Never Family History Problem Relation Age of Onset Other (carbonmonoxide poisoning) Father Cancer Paternal Grandfather Cancer Other Colon MEDICATIONS: Outpatient Medications as of 05/17/2020 Medication Sig nitroGLYCERIN (NITROSTAT) 0.[address] 0.4 mg under the tongue every 5 (five) minutes as needed . sildenafil, antihypertens, (REVATIO) 20 mg tablet Take 1-5 tabs by mouth 45 min before sexual intercourse. No more than 5 pills in 24 hrs. ALLERGIES: Allergies Allergen Reactions Dye Rash Hair dye, not aware if he has ever had IV dye. REVIEW OF SYSTEMS: [List positives and pertinent negatives] Constitutional Symptoms: Negative for unexplained falls, weight loss COVID19 Screen: Negative for fever, cough, SOB or exposure. Eyes: Negative for eye pain or vision changes Ears, Nose, Mouth, Throat: Negative for rhinorrhea, nasal pain, dysphagia, hoarseness Cardiovascular: Negative for chest pain, orthopnea, edema Respiratory: Negative for cough, shortness of breath Gastrointestinal: Negative for abdominal pain, nausea, vomiting, diarrhea Genitourinary: Negative for dysuria, hematuria Musculoskeletal: Positive for right leg pain with shortening and limited ROM. Skin/Breast: Negative for rash, itching, lesions Neurological: Negative for paresthesia, paralysis, loss of bowel or bladder control, loss of consciousness Psychiatric: Negative for depression, anxiety, or suicidal ideations Endocrine: Negative for heat/cold intolerance, polydipsia, polyphagia, polyuria Hematologic/Lymphatic: Negative for anticoagulant use, antiplatelet use, family hx of clotting or bleeding disorders Allergic/Immunologic: Allergies reviewed, no use of immunosuppressants or active chemotherapy Other than the above items, the remainder of a complete review of systems is otherwise negative. [must have at least one positive or negative to validate this statement] PHYSICAL EXAM: Blood pressure 116/72, pulse 90, temperature 98.8 F (37.1 C), temperature source Oral, resp. rate 18, height 5' 10, weight 72.6 kg (160 lb), SpO2 99 %. Body mass index is 22.96 kg/m . GENERAL: Appears age appropriate. No acute distress. NEUROLOGICAL: Alert and oriented X 3. Follows commands with extremities x4, equal strength. Pupils equal, round, reactive to light. EOMI. No focal neurologic deficits noted. GCS = 15 EYES/EARS/NOSE/MOUTH/THROAT: Conjunctivae/sclerae/corneas clear. Ears: External ear normal. Hearing within normal limits for patient. No drainage. Nose: nares normal, septum midline, no drainage or nasal tenderness. Neck: supple, symmetrical, trachea midline. CARDIOVASCULAR: Regular rate and rhythm. No clicks, rubs, murmurs or gallops noted. No peripheral edema noted.. 2+ pulses radial/DP/PT bilaterally. RESPIRATORY: Lungs, clear to auscultation bilaterally. No rhonchi, wheezes or crackles. Respiratory effort unlabored without use of accessory muscles. RA. ABDOMINAL: Rounded, soft, nontender, nondistended, normal bowel sounds. No guarding or peritoneal signs. GENITOURINARY: Voiding without difficulty. No dysuria or retention. No gross hematuria. MUSCULOSKELETAL: Extremities atraumatic without gross deformity x3, shortening with decreased ROM to right leg. ROM appropriate for age. No clubbing, cyanosis or joint edema. SKIN: Skin warm and dry. Normal turgor. No rashes or lesions. IMAGING STUDIES: Xray hip/pelvis reviewed. LABORATORY STUDIES: Lab Results Component Value Date WBC 14.89 (H) 05/17/2020 HGB 15.9 05/17/2020 HCT 46.9 05/17/2020 MCV 114.4 (H) 05/17/2020 PLT 211 05/17/2020 RBC 4.10 (L) 05/17/2020 Lab Results Component Value Date GLUCOSE 119 (H) 05/17/2020 CALCIUM 8.2 (L) 05/17/2020 NA 138 05/17/2020 K 3.8 05/17/2020 CL 106 05/17/2020 BUN 5 (L) 05/17/2020 CREATININE 0.76 05/17/2020 Lab Results Component Value Date ALT 39 05/17/2020 AST 37 05/17/2020 ALKPHOS 124 05/17/2020 BILITOT 1.0 05/17/2020 documented in this encounter INTERVAL HISTORY AND PHYSICAL Patient Name: Narciso Glez Admit Date: MR #: [id number] : 1965 The H&P has been reviewed and the patient has been examined. I concur with the findings of the H&P. There are no significant changes. It is appropriate to proceed with the planned procedure. Jakub Styles MD 05/18/2020 9:30 AM [facility] [place] PATIENT: Narciso Glez DATE / TIME: 05/18/20 9:13 AM POS: Office AGE: 54 y.o. : 1965 RACE: [1] SEX: male PCP: Jus Franco MD REFERRAL: No ref. provider found TOS: SUBJECTIVE: C/o hip pain OBJECTIVE: PACU Vitals 05/18/20 0320 BP: 136/86 Pulse: 88 Resp: 15 Temp: 97.8 F (36.6 C) SpO2: 93% NAD A&O GCS15 PERRLA EOMI Normocephalic, atraumatic Abd: s/nt/nd Bilateral 2+ DP and PT ASSESSMENT: The patient is a 54-year-old male s/p fall with right femur fracture PLAN: To OR today with Dr. Styles. Therapy to follow. [place] [facility] SURGICAL HISTORY & PHYSICAL/CONSULTATION NOTE Closed nondisplaced intertrochanteric fracture of right femur (HCC) Assessment & Plan S/p mechanical fall. Regular diet, NPO and MIVF at [place]. MRSA pending, Covid negative. PT/INR/PTT in am. Bed rest, pain control. * Fall at home, initial encounter Assessment & Plan No LOC, no AC/AP. Daily smoker/ etoh use. Nicotine patch. Monitor for s/s of etoh withdrawal. CHIEF COMPLAINT: Right hip/leg pain HISTORY OF PRESENT ILLNESS / INJURY (HPI): [include Pain, Quality, Radiation, Severity, Duration, Timing] Mr. Glez is a 54 year old male with medical history of COPD, rib and clavicle fracture with history of clavicle surgical repair that presents to the ED after slipping on his hardwood floor and falling directly onto his right hip, he was unable to get up and had to crawl over to his phone for help. He denies hitting his head or any other body location. GCS 15, lung sounds clear, +2 pulses throughout, chest wall and pelvis stable, right leg pain with shortening of extremity and pain, no other pain in other extremities. Dr. Styles called and able schedule surgery for 05/18. Dr. Butt updated. AM labs, MRSA swab pending. PAST MEDICAL HISTORY (PMH): Past Medical History: Diagnosis Date COPD (chronic obstructive pulmonary disease) (HCC) Fractures rib, clavicle. Past Surgical History: Procedure Laterality Date CLAVICLE SURGERY Social History Tobacco Use Smoking status: Current Every Day Smoker Packs/day: 1.00 Years: 30.00 Pack years: 30.00 Types: Cigarettes Smokeless tobacco: Never Used Substance Use Topics Alcohol use: Yes Alcohol/week: 84.0 standard drinks Types: 42 Cans of beer, 42 Standard drinks or equivalent per week Comment: 6 total drinks per day. Drug use: Never Family History Problem Relation Age of Onset Other (carbonmonoxide poisoning) Father Cancer Paternal Grandfather Cancer Other Colon MEDICATIONS: Outpatient Medications as of 05/17/2020 Medication Sig nitroGLYCERIN (NITROSTAT) 0.[address] 0.4 mg under the tongue every 5 (five) minutes as needed . sildenafil, antihypertens, (REVATIO) 20 mg tablet Take 1-5 tabs by mouth 45 min before sexual intercourse. No more than 5 pills in 24 hrs. ALLERGIES: Allergies Allergen Reactions Dye Rash Hair dye, not aware if he has ever had IV dye. REVIEW OF SYSTEMS: [List positives and pertinent negatives] Constitutional Symptoms: Negative for unexplained falls, weight loss COVID19 Screen: Negative for fever, cough, SOB or exposure. Eyes: Negative for eye pain or vision changes Ears, Nose, Mouth, Throat: Negative for rhinorrhea, nasal pain, dysphagia, hoarseness Cardiovascular: Negative for chest pain, orthopnea, edema Respiratory: Negative for cough, shortness of breath Gastrointestinal: Negative for abdominal pain, nausea, vomiting, diarrhea Genitourinary: Negative for dysuria, hematuria Musculoskeletal: Positive for right leg pain with shortening and limited ROM. Skin/Breast: Negative for rash, itching, lesions Neurological: Negative for paresthesia, paralysis, loss of bowel or bladder control, loss of consciousness Psychiatric: Negative for depression, anxiety, or suicidal ideations Endocrine: Negative for heat/cold intolerance, polydipsia, polyphagia, polyuria Hematologic/Lymphatic: Negative for anticoagulant use, antiplatelet use, family hx of clotting or bleeding disorders Allergic/Immunologic: Allergies reviewed, no use of immunosuppressants or active chemotherapy Other than the above items, the remainder of a complete review of systems is otherwise negative. [must have at least one positive or negative to validate this statement] PHYSICAL EXAM: Blood pressure 116/72, pulse 90, temperature 98.8 F (37.1 C), temperature source Oral, resp. rate 18, height 5' 10, weight 72.6 kg (160 lb), SpO2 99 %. Body mass index is 22.96 kg/m . GENERAL: Appears age appropriate. No acute distress. NEUROLOGICAL: Alert and oriented X 3. Follows commands with extremities x4, equal strength. Pupils equal, round, reactive to light. EOMI. No focal neurologic deficits noted. GCS = 15 EYES/EARS/NOSE/MOUTH/THROAT: Conjunctivae/sclerae/corneas clear. Ears: External ear normal. Hearing within normal limits for patient. No drainage. Nose: nares normal, septum midline, no drainage or nasal tenderness. Neck: supple, symmetrical, trachea midline. CARDIOVASCULAR: Regular rate and rhythm. No clicks, rubs, murmurs or gallops noted. No peripheral edema noted.. 2+ pulses radial/DP/PT bilaterally. RESPIRATORY: Lungs, clear to auscultation bilaterally. No rhonchi, wheezes or crackles. Respiratory effort unlabored without use of accessory muscles. RA. ABDOMINAL: Rounded, soft, nontender, nondistended, normal bowel sounds. No guarding or peritoneal signs. GENITOURINARY: Voiding without difficulty. No dysuria or retention. No gross hematuria. MUSCULOSKELETAL: Extremities atraumatic without gross deformity x3, shortening with decreased ROM to right leg. ROM appropriate for age. No clubbing, cyanosis or joint edema. SKIN: Skin warm and dry. Normal turgor. No rashes or lesions. IMAGING STUDIES: Xray hip/pelvis reviewed. LABORATORY STUDIES: Lab Results Component Value Date WBC 14.89 (H) 05/17/2020 HGB 15.9 05/17/2020 HCT 46.9 05/17/2020 MCV 114.4 (H) 05/17/2020 PLT 211 05/17/2020 RBC 4.10 (L) 05/17/2020 Lab Results Component Value Date GLUCOSE 119 (H) 05/17/2020 CALCIUM 8.2 (L) 05/17/2020 NA 138 05/17/2020 K 3.8 05/17/2020 CL 106 05/17/2020 BUN 5 (L) 05/17/2020 CREATININE 0.76 05/17/2020 Lab Results Component Value Date ALT 39 05/17/2020 AST 37 05/17/2020 ALKPHOS 124 05/17/2020 BILITOT 1.0 05/17/2020 documented in this encounter Cassie Ceja, PT - 05/19/2020 8:06 AM Jakub Gill MD - 05/18/2020 9:40 AM Jakub Gill MD - 05/18/2020 9:30 AM Cassie Petersen, PT - 05/19/2020 8:06 AM EST Consult Notes (unrecognized section and content) Physical Therapy PHYSICAL THERAPY EVALUATION NOTE Skilled Therapy Needs After Discharge Are Skilled Therapy Services Needed After Discharge: No DME Recommendation: Walker DME Rationale: Equipment required to maintain weight bearing status per physician orders Rehab Potential: Good Outcomes Measures Prior Function - Basic Mobility Raw Score: 24 Points Prior Function - Basic Mobility % Impaired: AM-PAC - Basic Mobility Raw Score: 23 Points AM-PAC - Basic Mobility % Impaired: Physical Therapy Assessment History: Patient admitted with : *Fall at home, initial encounter [W19.XXXA, Y92.009] Closed nondisplaced intertrochanteric fracture of femur, unspecified laterality, initial encounter ([facility]) [S72.146A S/p right hip ORIF 05/18/2020. The following factors influence the patient's participation in the PT plan of care: Personal Factors: Age Environmental Factors: Steps to enter home The following co-morbidities (from this admission or prior) influence the patient's participation in this plan of care: ETOH, COPD Number of History elements affecting this patient's PT plan of care: 3 or more Examination of Body Systems: The patient presents with: Musculoskeletal impairments: Strength Neurologic Impairments: Balance Cardiopulmonary Impairments: Activity Tolerance. These impairments result in limitations of Gait, Functional Transfers, Stair-Climbing, Activity Tolerance. These impairments result in restrictions of Household mobility, Community mobility. Number of Body Systems elements affecting this patient's PT plan of care: 3 or more. Clinical Presentation: The patient's clinical presentation for this PT evaluation is evolving as evidenced by current PT documentation. Activity Tolerance Activity Tolerance: Tolerates 10 - 20 min activity with multiple rests Therapy Precautions Weight Bearing Status: X RLE: Wt bearing as tolerated Balance Sitting Balance - Static: Sits without support for more than 30 seconds Standing Balance - Static: Stands without support for more than 30 seconds Bed Mobility Rolling: Independent Supine to Sit: Independent Sit to Supine: Independent Transfers Sit to Stand: Modified independence Stand Pivot Transfers: Modified [place] Skilled Intervention: Patinet particiapted in 8 minutes of education on transfer techniques and gait with walker. Patient able to return demonstration. Patient educated on car transfer technique. Patient verbalizes understanding. Gait/Locomotion Gait Assistance: Modified independence Assistive Device: Wheeled walker Distance: 250 Feet Pattern: Step to, R impaired heel strike Stair Management Technique: One rail L Stair Management Assistance: Stand by assistance Number of Stairs: 2 Home Living Type of Home: House Home Layout: One level, Stairs to enter with rails(2 RENNY) Prior Level of Function Level of [place]: Independent with ADLs and functional transfers, Independent with homemaking with ambulation Lives With: Significant other Past Medical History: Diagnosis Date COPD (chronic obstructive pulmonary disease) (HCC) Past Surgical History: Procedure Laterality Date CLAVICLE SURGERY For complete objective data, detailed plan of care and patient education refer to: PT EVALUATION flow sheet, PT TREATMENT flow sheet, patient Plan of Care, Plan of Care progress note, and Patient Education. This note stands as the current Discharge Summary upon patient discharge from the hospital or completion of Physical Therapy Plan of Care. During the current COVID surge, this surgery / procedure meets the following criteria (select all that apply): [] Threat to patient's life if the procedure is not performed. [x] Threat of permanent dysfunction of an extremity or organ system. [] Risk of metastasis or progression of staging. [] Risk of rapidly worsening to severe symptoms (time-sensitive). Brief Clinical Information: REASON FOR CONSULTATION Right hip fracture. HISTORY OF PRESENT ILLNESS Mr. Glez is a pleasant 54-year-old gentleman who does have a significant history of smoking and drinks 6 beers per day. With his history of COPD, had a fall on a hardwood floor yesterday when he landed directly on his right hip. Gentleman had to crawl to his phone because he was unable to walk. The gentleman's pain was so severe that he was transferred via squad to [facility], found to have an intertrochanteric hip fracture. PAST MEDICAL HISTORY COPD, history of rib fractures, left clavicle fracture. PAST SURGICAL HISTORY Left clavicle surgery. SOCIAL HISTORY he smokes a pack of cigarettes a day. Drinks 4 beers per day. FAMILY HISTORY Cancer. ALLERGIES To IV dye. MEDICATIONS His home medication regimen includes Nitrostat, Revatio. REVIEW OF SYSTEMS Right hip pain, groin pain, thigh pain. IMAGING x-ray examination of his left foot shows no evidence of a fracture. X-ray examination of his right hip shows an intertrochanteric right hip fracture with some comminution. LABORATORIES Reveal that he is COVID negative, MRSA negative. Basic metabolic panel within acceptable limits. He does have a depressed total protein and albumin consistent with his smoking and alcohol history. His CBC shows an elevated white count consistent with the fracture. Hemoglobin and platelet count within normal limits. PHYSICAL EXAM General: He is awake. He is alert and oriented x3. He is pleasant. He is in a hospital bed. Musculoskeletal: Left lower extremity atraumatic. However, he has some tenderness over the dorsum of his left foot. No Lisfranc tenderness. Mild ecchymosis. Ankle exam is benign. Right ankle and knee exam benign. His leg is shortened and externally rotated. Severe pain with any attempt at hip range of motion. Upper extremities have full range of motion of the hand, wrist, elbows, and shoulders. Scar of the left clavicle was noted. Neck and back nontender. IMPRESSION Displaced comminuted intertrochanteric right hip fracture. PLAN At this time his pain is severe. We are going to proceed forward with closed reduction, intramedullary daksha fixation. All risks and complications were discussed. Patient meets criteria under COVID criteria #2, threat of permanent dysfunction of an extremity or organ system. D 05/18/2020 09:38 [id number] 05/18/2020 09:55 MCB/MODL documented in this encounter Physical Therapy PHYSICAL THERAPY EVALUATION NOTE Skilled Therapy Needs After Discharge Are Skilled Therapy Services Needed After Discharge: No DME Recommendation: Walker DME Rationale: Equipment required to maintain weight bearing status per physician orders Rehab Potential: Good Outcomes Measures Prior Function - Basic Mobility Raw Score: 24 Points Prior Function - Basic Mobility % Impaired: AM-PAC - Basic Mobility Raw Score: 23 Points AM-PAC - Basic Mobility % Impaired: Physical Therapy Assessment History: Patient admitted with : *Fall at home, initial encounter [W19.XXXA, Y92.009] Closed nondisplaced intertrochanteric fracture of femur, unspecified laterality, initial encounter ([facility]) [S72.146A S/p right hip ORIF 05/18/2020. The following factors influence the patient's participation in the PT plan of care: Personal Factors: Age Environmental Factors: Steps to enter home The following co-morbidities (from this admission or prior) influence the patient's participation in this plan of care: ETOH, COPD Number of History elements affecting this patient's PT plan of care: 3 or more Examination of Body Systems: The patient presents with: Musculoskeletal impairments: Strength Neurologic Impairments: Balance Cardiopulmonary Impairments: Activity Tolerance. These impairments result in limitations of Gait, Functional Transfers, Stair-Climbing, Activity Tolerance. These impairments result in restrictions of Household mobility, Community mobility. Number of Body Systems elements affecting this patient's PT plan of care: 3 or more. Clinical Presentation: The patient's clinical presentation for this PT evaluation is evolving as evidenced by current PT documentation. Activity Tolerance Activity Tolerance: Tolerates 10 - 20 min activity with multiple rests Therapy Precautions Weight Bearing Status: X RLE: Wt bearing as tolerated Balance Sitting Balance - Static: Sits without support for more than 30 seconds Standing Balance - Static: Stands without support for more than 30 seconds Bed Mobility Rolling: Independent Supine to Sit: Independent Sit to Supine: Independent Transfers Sit to Stand: Modified independence Stand Pivot Transfers: Modified [place] Skilled Intervention: Patinet particiapted in 8 minutes of education on transfer techniques and gait with walker. Patient able to return demonstration. Patient educated on car transfer technique. Patient verbalizes understanding. Gait/Locomotion Gait Assistance: Modified independence Assistive Device: Wheeled walker Distance: 250 Feet Pattern: Step to, R impaired heel strike Stair Management Technique: One rail L Stair Management Assistance: Stand by assistance Number of Stairs: 2 Home Living Type of Home: House Home Layout: One level, Stairs to enter with rails(2 RENNY) Prior Level of Function Level of [place]: Independent with ADLs and functional transfers, Independent with homemaking with ambulation Lives With: Significant other Past Medical History: Diagnosis Date COPD (chronic obstructive pulmonary disease) (HCC) Past Surgical History: Procedure Laterality Date CLAVICLE SURGERY For complete objective data, detailed plan of care and patient education refer to: PT EVALUATION flow sheet, PT TREATMENT flow sheet, patient Plan of Care, Plan of Care progress note, and Patient Education. This note stands as the current Discharge Summary upon patient discharge from the hospital or completion of Physical Therapy Plan of Care. During the current COVID surge, this surgery / procedure meets the following criteria (select all that apply): [] Threat to patient's life if the procedure is not performed. [x] Threat of permanent dysfunction of an extremity or organ system. [] Risk of metastasis or progression of staging. [] Risk of rapidly worsening to severe symptoms (time-sensitive). Brief Clinical Information: REASON FOR CONSULTATION Right hip fracture. HISTORY OF PRESENT ILLNESS Mr. Glez is a pleasant 54-year-old gentleman who does have a significant history of smoking and drinks 6 beers per day. With his history of COPD, had a fall on a hardwood floor yesterday when he landed directly on his right hip. Gentleman had to crawl to his phone because he was unable to walk. The gentleman's pain was so severe that he was transferred via squad to [facility], found to have an intertrochanteric hip fracture. PAST MEDICAL HISTORY COPD, history of rib fractures, left clavicle fracture. PAST SURGICAL HISTORY Left clavicle surgery. SOCIAL HISTORY he smokes a pack of cigarettes a day. Drinks 4 beers per day. FAMILY HISTORY Cancer. ALLERGIES To IV dye. MEDICATIONS His home medication regimen includes Nitrostat, Revatio. REVIEW OF SYSTEMS Right hip pain, groin pain, thigh pain. IMAGING x-ray examination of his left foot shows no evidence of a fracture. X-ray examination of his right hip shows an intertrochanteric right hip fracture with some comminution. LABORATORIES Reveal that he is COVID negative, MRSA negative. Basic metabolic panel within acceptable limits. He does have a depressed total protein and albumin consistent with his smoking and alcohol history. His CBC shows an elevated white count consistent with the fracture. Hemoglobin and platelet count within normal limits. PHYSICAL EXAM General: He is awake. He is alert and oriented x3. He is pleasant. He is in a hospital bed. Musculoskeletal: Left lower extremity atraumatic. However, he has some tenderness over the dorsum of his left foot. No Lisfranc tenderness. Mild ecchymosis. Ankle exam is benign. Right ankle and knee exam benign. His leg is shortened and externally rotated. Severe pain with any attempt at hip range of motion. Upper extremities have full range of motion of the hand, wrist, elbows, and shoulders. Scar of the left clavicle was noted. Neck and back nontender. IMPRESSION Displaced comminuted intertrochanteric right hip fracture. PLAN At this time his pain is severe. We are going to proceed forward with closed reduction, intramedullary daksha fixation. All risks and complications were discussed. Patient meets criteria under COVID criteria #2, threat of permanent dysfunction of an extremity or organ system. D 05/18/2020 09:38 [id number] 05/18/2020 09:55 MCB/MODL documented in this encounter Claudio Arevalo RN - 05/17/2020 10:37 PM Claudio Maria RN - 05/17/2020 10:30 PM Claudio Maria RN - 05/17/2020 7:15 PM Cleo Lara MD - 05/17/2020 6:51 PM EST ED Notes (unrecognized secti on and content) Pt given late night meal. Pt NPO at midnight. Report given to Roya CHENEY 2W. All questions asked and answered. Pt ready for transport. Report received from Darek CHENEY. Pt requesting additional pain medication at this time. Physician notified. Call light within reach. Will continue to monitor. [facility] ED Attending Note: NAME: Narciso Glez 54 y.o. CSN: [id number] PCP: Jus Franco MD History: Chief Complaint: Fall HPI: The history was obtained from the patient. Narciso is a 54 y.o. male who presents with a chief complaint of Fall. Pt states he was walking into his house and his shoes were wet causing pt to slip and fall on the hard wood floor on to his right hip. Pt denies any other injuries. Pt states when he is lying still his pain is a 9/10 constant sharp pain; increases with motion PMHx: Past Medical History: Diagnosis Date COPD (chronic obstructive pulmonary disease) (HCC) Fractures rib, clavicle. PMSx: Past Surgical History: Procedure Laterality Date CLAVICLE SURGERY FAM. Hx: Family History Problem Relation Age of Onset Other (carbonmonoxide poisoning) Father Cancer Paternal Grandfather Cancer Other Colon SOC. Hx: Social History Socioeconomic History Marital status: Legally Spouse name: Not on file Number of children: Not on file Years of education: Not on file Highest education level: Not on file Occupational History Not on file Social Needs Financial resource strain: Not on file Food insecurity Worry: Not on file Inability: Not on file Transportation needs Medical: Not on file Non-medical: Not on file Tobacco Use Smoking status: Current Every Day Smoker Packs/day: 1.00 Years: 30.00 Pack years: 30.00 Types: Cigarettes Smokeless tobacco: Never Used Substance and Sexual Activity Alcohol use: Yes Alcohol/week: 84.0 standard drinks Types: 42 Cans of beer, 42 Standard drinks or equivalent per week Comment: 6 total drinks per day. Drug use: Never Sexual activity: Not on file Lifestyle Physical activity Days per week: Not on file Minutes per session: Not on file Stress: Not on file Relationships Social connections Talks on phone: Not on file Gets together: Not on file Attends congregational service: Not on file Active member of club or organization: Not on file Attends meetings of clubs or organizations: Not on file Relationship status: Not on file Other Topics Concern Not on file Social History Narrative Lives with nephew. Has girlfriend named Sharri. MEDs: Previous Medications Medication Sig nitroGLYCERIN (NITROSTAT) 0.[address] 0.4 mg under the tongue every 5 (five) minutes as needed . sildenafil, antihypertens, (REVATIO) 20 mg tablet Take 1-5 tabs by mouth 45 min before sexual intercourse. No more than 5 pills in 24 hrs. ALL: Allergies Allergen Reactions Dye ROS: Review of Systems Constitutional: Negative for chills and fever. HENT: Negative for congestion. Eyes: Negative for visual disturbance. Respiratory: Negative for cough, chest tightness and shortness of breath. Cardiovascular: Negative for chest pain and leg swelling. Gastrointestinal: Negative for abdominal pain, diarrhea, nausea and vomiting. Genitourinary: Negative for dysuria and frequency. Musculoskeletal: Negative for arthralgias. Right hip pain Skin: Negative. Negative for rash. Neurological: Negative for dizziness and weakness. Psychiatric/Behavioral: Negative for dysphoric mood. The patient is not nervous/anxious. All other systems reviewed and are negative. Positives and pertinent negatives as per HPI. All other systems were reviewed and are negative. Physical Exam: Patient Vitals for the past 24 hrs: BP Temp Temp src Pulse Resp SpO2 Height Weight 05/17/20 1932 116/72 90 18 99 % 05/17/20 1810 99 % 05/17/20 1808 84 05/17/20 1807 99 % 05/17/20 1806 128/88 98.8 F (37.1 C) Oral 16 99 % 5' 10 72.6 kg (160 lb) Physical Exam Vitals signs and nursing note reviewed. Constitutional: General: He is not in acute distress. Appearance: He is well-developed. Comments: Right LE shortened and externally rotated HENT: Head: Normocephalic and atraumatic. Eyes: Conjunctiva/sclera: Conjunctivae normal. Neck: Musculoskeletal: Normal range of motion and neck supple. Cardiovascular: Rate and Rhythm: Normal rate and regular rhythm. Pulses: Normal pulses. Heart sounds: Normal heart sounds. Pulmonary: Effort: Pulmonary effort is normal. Breath sounds: Normal breath sounds. Abdominal: General: Bowel sounds are normal. Palpations: Abdomen is soft. Musculoskeletal: Normal range of motion. General: Deformity present. Skin: General: Skin is warm and dry. Neurological: Mental Status: He is alert and oriented to person, place, and time. Deep Tendon Reflexes: Reflexes are normal and symmetric. Psychiatric: Behavior: Behavior normal. Laboratory & Radiological Imaging (if done): Labs Reviewed COMPREHENSIVE METABOLIC PANEL - Abnormal; Notable for the following components: Result Value Anion Gap 9 (*) Glucose 119 (*) BUN 5 (*) BUN/Creatinine Ratio 6.6 (*) Calcium 8.2 (*) All other components within normal limits Narrative: The eGFR should be used for monitoring renal function only and not for medication dosing. CBC WITH AUTO DIFFERENTIAL - Abnormal; Notable for the following components: WBC 14.89 (*) RBC 4.10 (*) MCV 114.4 (*) MCH 38.8 (*) All other components within normal limits MANUAL DIFFERENTIAL - Abnormal; Notable for the following components: Neutrophils Abs 13.85 (*) Monocytes Abs 0.13 (*) All other components within normal limits MRSA DNA AMPLIFIED PROBE CBC AND DIFFERENTIAL Narrative: The following orders were created for panel order CBC and Differential. Procedure Abnormality Status --------- ------ CBC Auto Differential[[id number]] Abnormal Final result Manual Differential[[id number]] Abnormal Final result CBC and Diff Morphology[[id number]] Final result Please view results for these tests on the individual orders. MORPHOLOGY XR Hip Right With Pelvis 2-3 Views (Routine) Final Result Nondisplaced acute intertrochanteric fracture of the proximal right femur. No additional acute findings are seen. Workstation ID: [id number] ED Course / Medical Decision Making: Patient presents with right hip pain after having a mechanical fall this evening falling onto his right hip. X-ray does show nondisplaced transtrochanteric fracture. Surgery consulted. Patient will be admitted and taken to surgery tomorrow by Dr. Styles. Clinical Impression: 1. Closed nondisplaced intertrochanteric fracture of femur, unspecified laterality, initial encounter ([facility]) Disposition: Patient is being hospitalize to med/surg (regular floor) Cleo Jolley MD [facility] Emergency Department (Please note that portions of this note have been completed with a voice recognition software. Efforts were made to correct any errors, but occasionally words are mis-transcribed.) Cleo Jolley MD 05/17/202031 Pt states that 15 years ago he injured his right hip and the doctor told he had a small fracture that would heal on it's own. Pt has good PMS bilaterally. Pt transported to ED Room 3 by [facility] with complaints of a fall. Pt states he was walking into his house and his shoes were wet causing pt to slip and fall on the hard wood floor on to his right hip. Pt denies any other injuries. Pt states when he is lying still his pain is a 9/10 constant sharp pain, and if he moves the pain is much higher. Ambulates with steady gate. Breaths equal and unlabored bilaterally. Bed: 03 Expected date: Expected time: Means of arrival: Comments: R4 documented in this encounter Pt given late night meal. Pt NPO at midnight. Report given to Roya CHENEY 2W. All questions asked and answered. Pt ready for transport. Report received from Darek CHENEY. Pt requesting additional pain medication at this time. Physician notified. Call light within reach. Will continue to monitor. [facility] ED Attending Note: NAME: Narciso Glez 54 y.o. CSN: [id number] PCP: Jus Franco MD History: Chief Complaint: Fall HPI: The history was obtained from the patient. Narciso is a 54 y.o. male who presents with a chief complaint of Fall. Pt states he was walking into his house and his shoes were wet causing pt to slip and fall on the hard wood floor on to his right hip. Pt denies any other injuries. Pt states when he is lying still his pain is a 9/10 constant sharp pain; increases with motion PMHx: Past Medical History: Diagnosis Date COPD (chronic obstructive pulmonary disease) (HCC) Fractures rib, clavicle. PMSx: Past Surgical History: Procedure Laterality Date CLAVICLE SURGERY FAM. Hx: Family History Problem Relation Age of Onset Other (carbonmonoxide poisoning) Father Cancer Paternal Grandfather Cancer Other Colon SOC. Hx: Social History Socioeconomic History Marital status: Legally Spouse name: Not on file Number of children: Not on file Years of education: Not on file Highest education level: Not on file Occupational History Not on file Social Needs Financial resource strain: Not on file Food insecurity Worry: Not on file Inability: Not on file Transportation needs Medical: Not on file Non-medical: Not on file Tobacco Use Smoking status: Current Every Day Smoker Packs/day: 1.00 Years: 30.00 Pack years: 30.00 Types: Cigarettes Smokeless tobacco: Never Used Substance and Sexual Activity Alcohol use: Yes Alcohol/week: 84.0 standard drinks Types: 42 Cans of beer, 42 Standard drinks or equivalent per week Comment: 6 total drinks per day. Drug use: Never Sexual activity: Not on file Lifestyle Physical activity Days per week: Not on file Minutes per session: Not on file Stress: Not on file Relationships Social connections Talks on phone: Not on file Gets together: Not on file Attends congregational service: Not on file Active member of club or organization: Not on file Attends meetings of clubs or organizations: Not on file Relationship status: Not on file Other Topics Concern Not on file Social History Narrative Lives with nephew. Has girlfriend named Sharri. MEDs: Previous Medications Medication Sig nitroGLYCERIN (NITROSTAT) 0.[address] 0.4 mg under the tongue every 5 (five) minutes as needed . sildenafil, antihypertens, (REVATIO) 20 mg tablet Take 1-5 tabs by mouth 45 min before sexual intercourse. No more than 5 pills in 24 hrs. ALL: Allergies Allergen Reactions Dye ROS: Review of Systems Constitutional: Negative for chills and fever. HENT: Negative for congestion. Eyes: Negative for visual disturbance. Respiratory: Negative for cough, chest tightness and shortness of breath. Cardiovascular: Negative for chest pain and leg swelling. Gastrointestinal: Negative for abdominal pain, diarrhea, nausea and vomiting. Genitourinary: Negative for dysuria and frequency. Musculoskeletal: Negative for arthralgias. Right hip pain Skin: Negative. Negative for rash. Neurological: Negative for dizziness and weakness. Psychiatric/Behavioral: Negative for dysphoric mood. The patient is not nervous/anxious. All other systems reviewed and are negative. Positives and pertinent negatives as per HPI. All other systems were reviewed and are negative. Physical Exam: Patient Vitals for the past 24 hrs: BP Temp Temp src Pulse Resp SpO2 Height Weight 05/17/20 1932 116/72 90 18 99 % 05/17/20 1810 99 % 05/17/20 1808 84 05/17/20 1807 99 % 05/17/20 1806 128/88 98.8 F (37.1 C) Oral 16 99 % 5' 10 72.6 kg (160 lb) Physical Exam Vitals signs and nursing note reviewed. Constitutional: General: He is not in acute distress. Appearance: He is well-developed. Comments: Right LE shortened and externally rotated HENT: Head: Normocephalic and atraumatic. Eyes: Conjunctiva/sclera: Conjunctivae normal. Neck: Musculoskeletal: Normal range of motion and neck supple. Cardiovascular: Rate and Rhythm: Normal rate and regular rhythm. Pulses: Normal pulses. Heart sounds: Normal heart sounds. Pulmonary: Effort: Pulmonary effort is normal. Breath sounds: Normal breath sounds. Abdominal: General: Bowel sounds are normal. Palpations: Abdomen is soft. Musculoskeletal: Normal range of motion. General: Deformity present. Skin: General: Skin is warm and dry. Neurological: Mental Status: He is alert and oriented to person, place, and time. Deep Tendon Reflexes: Reflexes are normal and symmetric. Psychiatric: Behavior: Behavior normal. Laboratory & Radiological Imaging (if done): Labs Reviewed COMPREHENSIVE METABOLIC PANEL - Abnormal; Notable for the following components: Result Value Anion Gap 9 (*) Glucose 119 (*) BUN 5 (*) BUN/Creatinine Ratio 6.6 (*) Calcium 8.2 (*) All other components within normal limits Narrative: The eGFR should be used for monitoring renal function only and not for medication dosing. CBC WITH AUTO DIFFERENTIAL - Abnormal; Notable for the following components: WBC 14.89 (*) RBC 4.10 (*) MCV 114.4 (*) MCH 38.8 (*) All other components within normal limits MANUAL DIFFERENTIAL - Abnormal; Notable for the following components: Neutrophils Abs 13.85 (*) Monocytes Abs 0.13 (*) All other components within normal limits MRSA DNA AMPLIFIED PROBE CBC AND DIFFERENTIAL Narrative: The following orders were created for panel order CBC and Differential. Procedure Abnormality Status --------- ------ CBC Auto Differential[[id number]] Abnormal Final result Manual Differential[[id number]] Abnormal Final result CBC and Diff Morphology[[id number]] Final result Please view results for these tests on the individual orders. MORPHOLOGY XR Hip Right With Pelvis 2-3 Views (Routine) Final Result Nondisplaced acute intertrochanteric fracture of the proximal right femur. No additional acute findings are seen. Workstation ID: [id number] ED Course / Medical Decision Making: Patient presents with right hip pain after having a mechanical fall this evening falling onto his right hip. X-ray does show nondisplaced transtrochanteric fracture. Surgery consulted. Patient will be admitted and taken to surgery tomorrow by Dr. Styles. Clinical Impression: 1. Closed nondisplaced intertrochanteric fracture of femur, unspecified laterality, initial encounter ([facility]) Disposition: Patient is being hospitalize to med/surg (regular floor) Cleo Jolley MD [facility] Emergency Department (Please note that portions of this note have been completed with a voice recognition software. Efforts were made to correct any errors, but occasionally words are mis-transcribed.) Cleo Jolley MD 05/17/202031 Pt states that 15 years ago he injured his right hip and the doctor told he had a small fracture that would heal on it's own. Pt has good PMS bilaterally. Pt transported to ED Room 3 by [facility] with complaints of a fall. Pt states he was walking into his house and his shoes were wet causing pt to slip and fall on the hard wood floor on to his right hip. Pt denies any other injuries. Pt states when he is lying still his pain is a 9/10 constant sharp pain, and if he moves the pain is much higher. Ambulates with steady gate. Breaths equal and unlabored bilaterally. Bed: 03 Expected date: Expected time: Means of arrival: Comments: R4 documented in this encounter Quick Note - Beverly Knox RN - 05/19/2020 3:10 PM ESTQuick Note - Beverly Knox RN - 05/19/2020 9:00 AM EST Miscellaneous Notes (unrecog nized section and content) Reviewed discharge instructions with pt : infection, care of incision and dressing and side effects of opioids. Discharged via w/c to [facility]. Exit Pt states he wants to go home. Denies pain but urged pt to not allow pain to get too bad. Associated Problem(s): EtOH dependence (HCC) - Brief Post Operative Note Patient Name: Narciso Glez : 1965 (54 y.o.) Date of Service: 05/18/2020 CSN: [id number] Procedure(s): INTRAMEDULLARY NAILING FEMUR RIGHT SHORT NAIL Pre-Operative Diagnoses: * Intertrochanteric Fracture of Proximal Right Femur Post-Operative Diagnoses: * Same as Pre-Op Diagnosis Surgeon(s) and Role: * Jakub Styles MD - Primary Anesthesiologist: Franklin Garcia MD Anesthesiologist Solution Advisor: MAYNOR Gardner Plasterer Journeyman: Sunil Nicholas RN; Sylvester Cain RN; Arnold Vasquez RN Manager Of School: Kaz Schilling, TECHNOLOGIST Scrub Person: ST Leonor Operative findings: see preop Intra and immediate post-operative complications: none Type of anesthesia used: General Estimated blood loss: 75 mL Estimated urine output: Specimen(s): * No specimens in log * Implant(s): Implant Name Type Inv. Item Serial No. Porter Luggage Lot No. LRB No. Used Action NAIL 11 X 170MM 130DEG FEM SHORT DARNELL TI STERL TFNA - [id number] NAIL 11 X 170MM 130DEG FEM SHORT DARNELL TI STERL TFNA SYNTHES LT [id number] Right 1 Implanted SCREW 100MM FEN HELICAL TI STERL TFNA - [id number] SCREW 100MM FEN HELICAL TI STERL TFNA SYNTHES LT [id number] Right 1 Implanted SCREW 5 X 36MM TI LOCKING T25 STRDRV IM NAIL - [id number] SCREW 5 X 36MM TI LOCKING T25 STRDRV IM NAIL SYNTHES LT LOAD #[id number] Right 1 Implanted Drain(s): * No LDAs found * Wound(s): Wound 05/18/20 Surgical Wound Leg Right (Active) Jakub Styles MD 05/18/2020 10:16 AM PREOPERATIVE DIAGNOSIS Right intertrochanteric hip fracture, comminuted, displaced. POSTOPERATIVE DIAGNOSIS Right intertrochanteric hip fracture, comminuted, displaced. PROCEDURE Closed reduction with right hip intramedullary daksha fixation. ANESTHESIA General anesthetic. COMPLICATIONS None. SPECIMENS None. ESTIMATED BLOOD LOSS 75 cc. HISTORY Celso is a 54-year-old pack-a-day smoker with a significant alcohol history who had a fall yesterday, sustaining the above-named fracture, unable to ambulate with severe right hip pain. I explained all of the risks and complications of surgery including, but not limited to the risk of infection, bleeding, neurologic or vascular injury, possibility of deep venous thrombosis, pulmonary embolism, myocardial infarction, stroke, or even with surgery. I explained the possibilities of continued pain, stiffness, loss of range of motion, nonunion, malunion, as well as hardware failure. At this point in time, we talked about his increased risk of nonunion and malunion with his history of smoking. I also explained to him that his nutritional deficiency with his history of low albumin and total protein due to his alcohol and smoking. He understands this and at this point in time consents for surgical intervention. PROCEDURE IN DETAIL The patient was met in the preoperative holding area where the right hip was confirmed to be the appropriate site and marked by myself. The patient was taken to the operative suite, given preoperative Kefzol per protocol, as well as a general anesthetic. At this point in time, the patient's left leg was placed in the lithotomy Position. Right leg was placed in the traction device. Right hip fracture was closed reduced. After the closed reduction of the right hip, we than did our final time-out to confirm that the right hip was, in fact, the appropriate site that had been marked by myself. After a final time-out, we then made a skin incision over the greater trochanter. We then placed our intramedullary guide daksha. We then placed a short TFN nail 130- degree angle x 11 mm. After this, we placed 100 mm lag screw in the center-center position of the femoral head and neck. We then went ahead and proceeded forward with placing a 36 mm distal cross-locking screw. Fluoroscopy images were saved. Wounds were irrigated and closed with 4-0 black nylon suture and skin janneth. Aquacel was placed on the wound. The patient was extubated and taken to PACU without intraoperative complication. D 05/18/2020 10:19 [id number] 05/18/2020 11:15 MCHome/DAMARIS [employer] Utilization Review Notes HISTORY OF PRESENT ILLNESS: 54 year old male with medical history of COPD, rib and clavicle fracture with history of clavicle surgical repair that presents to the ED after slipping on his hardwood floor and falling directly onto his right hip, he was unable to get up and had to crawl over to his phone for help. He denies hitting his head or any other body location. GCS 15, lung sounds clear, +2 pulses throughout, chest wall and pelvis stable, right leg pain with shortening of extremity and pain, no other pain in other extremities. VITAL SIGNS: 98.8 84 16 128/88 room air ox 99 EKG: n/a WEIGHT: 72.5 kg LABS: (Abnormal / Relevant): Anion Gap 9Low mmol/L Glucose 119High mg/dL BUN 5Low mg/dL Creatinine 0.76 mg/dL eGFR 103 mL/min/1.73 m2 BUN/Creatinine Ratio 6.6Low Total Protein 6.0 g/dL Albumin 3.2 g/dL Calcium 8.2 WBC 14.89High K/mcL RBC 4.10Low M/mcL Hemoglobin 15.9 g/dL Hematocrit 46.9 % MCV 114.4High fL MCH 38.8High IMAGING: (Abnormal / Relevant): XR right hip-Nondisplaced acute intertrochanteric fracture of the proximal right femur. No additional acute findings are seen. ED TX: 05/17/20201849 HYDROmorphone (DILAUDID) injection 0.5 mg 0.5 mg Intravenous Given 05/17/20201849 ondansetron (ZOFRAN) injection 4 mg 4 mg Intravenous Given 05/17/20202046 oxyCODONE (ROXICODONE) immediate release tablet 5 mg 5 mg Oral Given 05/17/20202046 nicotine (NICODERM CQ) 21 mg/24 hr 1 patch 1 patch Transdermal Patch Applied DX: s/p fall, Closed nondisplaced intertrochanteric fracture of femur, ASSESSMENT / PLAN / MEDS / ORDERS: Closed nondisplaced intertrochanteric fracture of right femur (HCC) Assessment & Plan S/p mechanical fall. Regular diet, NPO and MIVF at [facility]. MRSA pending, Covid negative. PT/INR/PTT in am. Bed rest, pain control. * Fall at home, initial encounter Assessment & Plan No LOC, no AC/AP. Daily smoker/ etoh use. Nicotine patch. Monitor for s/s of etoh withdrawal. 05/18 To OR today DISPO: TBD Associated Problem(s): Closed nondisplaced intertrochanteric fracture of right femur (HCC) S/p mechanical fall. Regular diet, NPO and MIVF at [facility]. MRSA pending, Covid negative. PT/INR/PTT in am with LFT. Bed rest, pain control. Associated Problem(s): Fall at home, initial encounter No LOC, no AC/AP. Daily smoker/ etoh use. Nicotine patch. Monitor for s/s of etoh withdrawal. documented in this encounter Reviewed discharge instructions with pt : infection, care of incision and dressing and side effects of opioids. Discharged via w/c to [facility]. Exit Pt states he wants to go home. Denies pain but urged pt to not allow pain to get too bad. Associated Problem(s): EtOH dependence (HCC) - Brief Post Operative Note Patient Name: Narciso Glez : 1965 (54 y.o.) Date of Service: 05/18/2020 CSN: [id number] Procedure(s): INTRAMEDULLARY NAILING FEMUR RIGHT SHORT NAIL Pre-Operative Diagnoses: * Intertrochanteric Fracture of Proximal Right Femur Post-Operative Diagnoses: * Same as Pre-Op Diagnosis Surgeon(s) and Role: * Jakub Styles MD - Primary Anesthesiologist: Franklin Garcia MD Anesthesiologist Solution Advisor: MAYNOR Gardner Plasterer Journeyman: Sunil Nicholas RN; Sylvester Cain RN; Arnold Vasquez RN Manager Of School: Kaz Schilling, TECHNOLOGIST Scrub Person: [facility] Operative findings: see preop Intra and immediate post-operative complications: none Type of anesthesia used: General Estimated blood loss: 75 mL Estimated urine output: Specimen(s): * No specimens in log * Implant(s): Implant Name Type Inv. Item Serial No. Porter Luggage Lot No. LRB No. Used Action NAIL 11 X 170MM 130DEG FEM SHORT DARNELL TI STERL TFNA - [id number] NAIL 11 X 170MM 130DEG FEM SHORT DARNELL TI STERL TFNA SYNTHES LT [id number] Right 1 Implanted SCREW 100MM FEN HELICAL TI STERL TFNA - [id number] SCREW 100MM FEN HELICAL TI STERL TFNA SYNTHES LT [id number] Right 1 Implanted SCREW 5 X 36MM TI LOCKING T25 STRDRV IM NAIL - [id number] SCREW 5 X 36MM TI LOCKING T25 STRDRV IM NAIL SYNTHES LT LOAD #[id number] Right 1 Implanted Drain(s): * No LDAs found * Wound(s): Wound 05/18/20 Surgical Wound Leg Right (Active) Jakub Styles MD 05/18/2020 10:16 AM PREOPERATIVE DIAGNOSIS Right intertrochanteric hip fracture, comminuted, displaced. POSTOPERATIVE DIAGNOSIS Right intertrochanteric hip fracture, comminuted, displaced. PROCEDURE Closed reduction with right hip intramedullary daksha fixation. ANESTHESIA General anesthetic. COMPLICATIONS None. SPECIMENS None. ESTIMATED BLOOD LOSS 75 cc. HISTORY Celso is a 54-year-old pack-a-day smoker with a significant alcohol history who had a fall yesterday, sustaining the above-named fracture, unable to ambulate with severe right hip pain. I explained all of the risks and complications of surgery including, but not limited to the risk of infection, bleeding, neurologic or vascular injury, possibility of deep venous thrombosis, pulmonary embolism, myocardial infarction, stroke, or even with surgery. I explained the possibilities of continued pain, stiffness, loss of range of motion, nonunion, malunion, as well as hardware failure. At this point in time, we talked about his increased risk of nonunion and malunion with his history of smoking. I also explained to him that his nutritional deficiency with his history of low albumin and total protein due to his alcohol and smoking. He understands this and at this point in time consents for surgical intervention. PROCEDURE IN DETAIL The patient was met in the preoperative holding area where the right hip was confirmed to be the appropriate site and marked by myself. The patient was taken to the operative suite, given preoperative Kefzol per protocol, as well as a general anesthetic. At this point in time, the patient's left leg was placed in the lithotomy Position. Right leg was placed in the traction device. Right hip fracture was closed reduced. After the closed reduction of the right hip, we than did our final time-out to confirm that the right hip was, in fact, the appropriate site that had been marked by myself. After a final time-out, we then made a skin incision over the greater trochanter. We then placed our intramedullary guide daksha. We then placed a short TFN nail 130- degree angle x 11 mm. After this, we placed 100 mm lag screw in the center-center position of the femoral head and neck. We then went ahead and proceeded forward with placing a 36 mm distal cross-locking screw. Fluoroscopy images were saved. Wounds were irrigated and closed with 4-0 black nylon suture and skin janneth. Aquacel was placed on the wound. The patient was extubated and taken to PACU without intraoperative complication. D 05/18/2020 10:19 [id number] 05/18/2020 11:15 MCB/MODL Central Utilization Review Notes HISTORY OF PRESENT ILLNESS: 54 year old male with medical history of COPD, rib and clavicle fracture with history of clavicle surgical repair that presents to the ED after slipping on his hardwood floor and falling directly onto his right hip, he was unable to get up and had to crawl over to his phone for help. He denies hitting his head or any other body location. GCS 15, lung sounds clear, +2 pulses throughout, chest wall and pelvis stable, right leg pain with shortening of extremity and pain, no other pain in other extremities. VITAL SIGNS: 98.8 84 16 128/88 room air ox 99 EKG: n/a WEIGHT: 72.5 kg LABS: (Abnormal / Relevant): Anion Gap 9Low mmol/L Glucose 119High mg/dL BUN 5Low mg/dL Creatinine 0.76 mg/dL eGFR 103 mL/min/1.73 m2 BUN/Creatinine Ratio 6.6Low Total Protein 6.0 g/dL Albumin 3.2 g/dL Calcium 8.2 WBC 14.89High K/mcL RBC 4.10Low M/mcL Hemoglobin 15.9 g/dL Hematocrit 46.9 % MCV 114.4High fL MCH 38.8High IMAGING: (Abnormal / Relevant): XR right hip-Nondisplaced acute intertrochanteric fracture of the proximal right femur. No additional acute findings are seen. ED TX: 05/17/20201849 HYDROmorphone (DILAUDID) injection 0.5 mg 0.5 mg Intravenous Given 05/17/20201849 ondansetron (ZOFRAN) injection 4 mg 4 mg Intravenous Given 05/17/20202046 oxyCODONE (ROXICODONE) immediate release tablet 5 mg 5 mg Oral Given 05/17/20202046 nicotine (NICODERM CQ) 21 mg/24 hr 1 patch 1 patch Transdermal Patch Applied DX: s/p fall, Closed nondisplaced intertrochanteric fracture of femur, ASSESSMENT / PLAN / MEDS / ORDERS: Closed nondisplaced intertrochanteric fracture of right femur (HCC) Assessment & Plan S/p mechanical fall. Regular diet, NPO and M[place]F at [place]. MRSA pending, Covid negative. PT/INR/PTT in am. Bed rest, pain control. * Fall at home, initial encounter Assessment & Plan No LOC, no AC/AP. Daily smoker/ etoh use. Nicotine patch. Monitor for s/s of etoh withdrawal. 05/18 To OR today DISPO: TBD Associated Problem(s): Closed nondisplaced intertrochanteric fracture of right femur (HCC) S/p mechanical fall. Regular diet, NPO and M[place]F at [place]. MRSA pending, Covid negative. PT/INR/PTT in am with LFT. Bed rest, pain control. Associated Problem(s): Fall at home, initial encounter No LOC, no AC/AP. Daily smoker/ etoh use. Nicotine patch. Monitor for s/s of etoh withdrawal. documented in this encounter Prescription for Oxycodone d/c'd needs recent to [place]. The original [facility] went to [facility]. Patient in [place]. documented in this encounter <item> Privacy Markings (unrecogniz ed section and content) Section Author: Malgorzata Gaytan PROHIBITION ON REDISCLOSURE OF CONFIDENTIAL INFORMATION This notice accompanies a disclosure of information concerning a client made to you with the consent of such client. Patient Care team informatio n (unrecognized section and content) Occ Therapist Relationship [place] [address] PCP - General Internal Medicine 03/08/24 Occ Therapist [place] [address] PCP - General Internal Medicine 03/08/24 Source Comments (unrecognize d section and content) In the event this informatio n is protected by the Federal Confidentiality of Alcohol and Drug Abuse Patient Records regulations: The Federal rules restrict any use of the information to criminally investigate or prosecute any alcohol or drug abuse patient.[facility] the event this information is protected by the Federal Confidentiality of Alcohol and Drug Abuse Patient Records regulations: The Federal rules restrict any use of the information to criminally investigate or prosecute any alcohol or drug abuse patient.[facility] FOR RECORDS PERTAINING TO PATIENTS WHO ARE OR HAVE BEEN ENROLLED IN A CHEMICAL DEPENDENCY/SUBSTANCEABUSE PROGRAM, SOME INFORMATION MAY BE OMITTED. This clinical summary was aggregated from multiple sources. Caution should be exercised in using it in the provision of clinical care. This summary normalizes information from multiple sources, and as a consequence, information in this document may materially change the coding, format and clinical context of patient data. In addition, data may be omitted in some cases. CLINICAL DECISIONS SHOULD BE BASED ON THE PRIMARY CLINICAL RECORDS. [facility]. provides no warranty or guarantee of the accuracy or completeness of information in this document.
== END | disposition home or self-care (01) ==
LOC: MTLAB 12:56
DX: K76.6 Portal hypertension (principal); K74.60 Unspecified cirrhosis of liver; E88.09 Other disorders of plasma-protein metabolism, not elsewhere classified; Z65.8 Other specified problems related to psychosocial circumstances; R18.8 Other ascites; Z72.0 Tobacco use
CPT/HCPCS: 36415; 80053; 82105; 85025; 85610

== ENCOUNTER 2025-05-19 15:02 | Emergency (ER) | payer MEDICARE, SELFPAY ==
[2025-05-19 15:03] VITALS: BP 129/94; PULSE 82; RESP 16; TEMP 36.6; O2SAT 97; BMI 24.6
[2025-05-19 15:39] LABS: Hematocrit 50.1 % (40-54); Immature Granulocytes Count 0.040 X10^3/uL (0.0-0.0); Mean Corp Hgb Conc 36.1 g/dL (32-36); Mean Corpuscular Volume 98.8 fL (80-94); Mean Platelet Vol. 9.4 fl (6.2-12.0); NRBC Flagged by Analyzer 0 % (0-5); Platelet Count 271 K/mm3 (150-450); RBC Distribution Width CV 12.7 % (11.6-14.6); RBC Distribution Width SD 46.1 fl (35.1-43.9); Red Blood Count 5.07 M/mm3 (4.6-6.2); White Blood Count 8.8 K/mm3 (4.4-11.0)
--- NOTE | 2025-05-19 15:50 | CM.ED ---
Social work Reason for referral: no PCP Referral source: case find SW entered patient's room, introducing self and role at [facility]. Patient confirmed lacking a PCP and accepted resources of [facility] Provider Directory and [facility] information. Patient denied further needs at this time. Kacey De Guzman, REAL ESTATE INSTRUCTOR, UX UI DESIGNER
[2025-05-19 15:53] LABS: Mucous, Urine 0 SEEN /hpf (<or=2+)
[2025-05-19 15:55] LABS: Hemoglobin 18.1 g/dL (13.0-16.5)
--- OUTSIDE RECORDS SUMMARY | 2025-05-19 15:56 | XMS RPT_ITS | CCD ---
Author Organization [facility] Care Team Providers Care Drawing Kiln Supervisor Name Role Phone Tourlas, Jus Unavailable Unavailabl e Tourlas, Jus Unavailable Unavailabl e Tourlas, Jus Unavailable Unavailabl e Belmont, Josy D Unavailable Unavailable Tourlas, Jus Unavailable Unavailabl e Brandie, Josy D Unavailable Unavailable Brandie, Josy D Unavailable Unavailable Belmont, Josy D Unavailable Unavailable Tourlas, Jus Unavailable Unavailabl e Newbill, Rubens Guel Unavailable Unavailable Newbill, Rubens Uday Unavailable Unavailable Tourlas, Jus Unavailable Unavailabl e Newbill, Rubens Uday Unavailable Unavailable Newbill, Rubens Uday Unavailable Unavailable Tourlas, Jus Unavailable Unavailabl e Tourlas, Jus Unavailable Unavailabl e Tourlas, Jus Unavailable Unavailabl e Tourlas, Jus Primary Care Provider [phone] Tourthompson, Jus Primary Care Provider LUCERO, JUS [...] Primary Care UnavailJAKUB López Admitting Unavailab JAKUB Ceo Referring Unavailab le TOURLAS, [facility] Primary Care Unavailabl e Mallapareddi, Oriana Nag S Unavailable Unavailable Unavailable Lucero IRAHETA [facility] Primary Care Provider Mallapareddi, Oriana Nag S Unavailable Unavail able Alvaro Bah Unavailable Socrates Dietz Unavailable Unavailable Unavailable LUCERO, [facility] Primary Care Unavailabl e ANGELALEIDA RIVERA Attending Unavailable Arnold Carbone Attending Unavailable [facility]EDDI, [facility] Primary Care Unavailable [facility] Primary Care Unavailable Dr. ALVARO BAH Attending Unavailable Dr. ALVARO BAH Referring Unavailable MALLAPAREDDI, [facility] Primary Care Unavailable MALLAPAREDDI, [facility] Attending Unavailable [facility] Attending Unavailable MALLAPAREDDI, [facility] Referring Unavailable [facility]DI[facility] Primary Care Unavailable MALLAPAREDDI, [facility] Primary Care Unavailable Dr. Mery Ambrosio Referring Unavailable Dr. Mery Ambrosio Attending Unavailable MALLAPAREDDI, [facility] Primary Care Unavailable Dr. Mery Ambrosio Attending Unavailable MALLAPAREDDI, [facility] Referring Unavailable MALLAPAREDDI, [facility] Attending Unavailable MALLAPAREDDI, [facility] Primary Care Unavailable MALLAPAREDDI, [facility] Referring Unavailable MALLAPAREDDI, [place] NAG VINICIO Primary Care Unavailable MALLAPAREDDI, [facility] Referring Unavailable MALLAPAREDDI, [facility] Attending Unavailable MALLAPAREDDI, [facility] Primary Care Unavailable MALLAPAREDDI, [facility] Referring Unavailable MALLAPAREDDI, [facility] Attending Unavailable MALLAPAREDDI, [facility] Primary Care Unavailable MALLAPAREDDI, [facility] Referring Unavailable MALLAPAREDDI, [facility] Attending Unavailable MALLAPAREDDI, [facility] Primary Care Unavailable MALLAPAREDDI, [facility] Referring Unavailable MALLAPAREDDI, [facility] Attending Unavailable MALLAPAREDDI, [facility] Attending Unavailable MALLAPAREDDI, [facility] Primary Care Unavailable MALLAPAREDDI, [facility] Primary Care Unavailable MALLAPAREDDI, [facility] Referring Unavailable MALLAPAREDDI, [facility] Attending Unavailable MALLAPAREDDI, [facility] Referring Unavailable MALLAPAREDDI, [facility] Attending Unavailable MALLAPAREDDI, [facility] Primary Care Unavailable MALLAPAREDDI, [facility] Attending Unavailable MALLAPAREDDI, [facility] Referring Unavailable MALLAPAREDDI, [facility] Primary Care Unavailable MALLAPAREDDI, [facility] Attending Unavailable MALLAPAREDDI, [facility] Referring Unavailable MALLAPAREDDI, [facility] Primary Care Unavailable MALLAPAREDDI, [facility] Attending Unavailable MALLAPAREDDI, [facility] Primary Care Unavailable MALLAPAREDDI, [facility] Referring Unavailable MALLAPAREDDI, [facility] Referring Unavailable MALLAPAREDDI, [facility] Attending Unavailable MALLAPAREDDI, [facility] Primary Care Unavailable MALLAPAREDDI, [facility] Primary Care Unavailable MALLAPAREDDI, [facility] Referring Unavailable MALLAPAREDDI, [facility] Attending Unavailable SIPPEY, ARNOLD Attending Unavailable MALLAPAREDDI, [facility] Referring Unavailable MALLAPAREDDI, [facility] Primary Care Unavailable SIPPEY, ARNOLD Attending Unavailable MALLAPAREDDI, [place] NAG VINICIO Referring Unavailable MALLAPAREDDI, [place] BRIANA VINICIO Primary Care Unavailable PHYSICIAN, NONE Primary Care Physician Unavailab nirav Morales Rounding Nurse, [place] Unavailable [facility] Primary Care Provide r PODUGU, AMARESHWAR Referring Unavailable PODUGU, AMARESHBOLA Primary Care Unavailable PODUGU, AMARESHWAR Referring Unavailable CHANTALE CABRAL Referring Unavailable RAMAKRISHNA RIOS Referring Unavaila ble ASIM HOGAN A Referring Unavailable REFERRING, PHY WO ID Primary Care Physician Unav ailable VALENCIA IRAHETA, DR ALFRED Attending Unavail able REFERRING, PHY WO ID Primary Care Unavailable PHYSICIAN, NONE Primary Care Unavailable VALENCIA IRAHETA, DR ALFRED Attending Unavail able PODUGU , DR AFLRED Attending Unavail able PHYSICIAN, NONE Primary Care Unavailable MACHELLE PATEL MD Consulting Unavailable AUTUMNUGU , DR ALFRED Attending Unavail able REFERRING, PHY WO ID Primary Care Unavailable PHYSICIAN, NONE Primary Care Unavailable PODUGU , DR ALFRED Consulting Unavail able FABIOLA IRAHETA, TAWNY Gracia Attending Unavailable DR DONNA FAJARDO MD Admitting Unavailab le Care Physician, No Primary Primary Care Provider Unavailable PODUGU, AUBRIE Attending Provider PODUGU, AMANGELOHBOLA Referring Provider White, Earnestine L Referring Unavailable Care Physician, No Primary Primary Care Unava ilable Natanael Escamilla Attending Unavailable White, Earnestine L Attending Unavailable White, Earnestine L Consulting Unavailable Care Physician, No Primary Primary Care Unava ilable White, Earnestine L Admitting Unavailable Ramakrishna Bower Attending Unavailable Ramakrishna Bower Consulting Unavailable EMMY Referring Unavailable EMMY Attending Unavailable Care Physician, No Primary Primary Care Unava ilable White, Earnestine L Consulting Unavailable White, Earnestine L Admitting Unavailable Care Physician, No Primary Primary Care Unava ilable Ramakrishna Bower Attending Unavailable Tim Pandya Attending Unavailable Care Physician, No Primary Primary Care Unava ilable VALENCIA IRAHETA, DR ALFRED Attending Unavail able PHYSICIAN, NONE Primary Care Unavailable THORNE DO, GLO Attending Unavailable ZIGGY IRAHETA, ANI Masters Attending Unavailable Allergies Allergy Classification Reported Allergen(s) Allergy Type Date of Onset Reaction(s) Facility Contrast Media (2 sources) Contrast media Substance Allergy 0 [facility] Work Phone: Unclassified (20 sources) Hair Dye Allergy to substance (finding) [facility] Work Phone: (1 source) Adhesive agent; Translations: [Adhesive] Propensity to adverse reactions to drug (disorder) [facility] (1 source) Chemical dye; Translations: [Chemical dye] Propensity to adverse reactions to drug (disorder) [facility] (1 source) No Known Allergies; Translations: [No Known Allergies] Propensity to adverse reactions to drug (disorder) [facility] Repository (13 sources) Contrast media; Translations: [DYE] Propensity to adverse reactions to drug 0 [facility] (10 sources) Adhesive Tape-Silicones; Translations: [ADHESIVE TAPE-SILICONES] Propensity to adverse reactions to drug 1 [facility] (3 sources) Latex; Translations: [LATEX, NATURAL RUBBER] Drug Allergy 2 [facility] (1 source) Latex Allergy to substance 4 [facility] (1 source) Latex Drug allergy (disorder) 4 [facility] Repository Medications Current Medications Medication Drug Class(es) Dates [...] BIDRT, # 120 mL, 0 Refill(s), Pharmacy: [facility]/pharmacy #[id number], 177.8, cm, 02/18/24 0:50:00 EDT, Height, [...] qDay, # 30 tab(s), 0 Refill(s), Pharmacy: [facility]/pharmacy #[id number], 177.8, cm, 02/18/24 0:50:00 EDT, Height, kg, 02/18/24 0:50:00 EDT, Dosing Weight Start Date: 02/22/24 Status: Ordered Quantity: 30.0 Unit: tab(s) Repeat number: 1 gabapentin 300 mg oral capsule (6 sources) Anti-epileptic Agent Start: 08-19-2012 gabapentin 300 mg oral capsule Dose : 300 mg = 1 cap(s), Oral, BID, # 60 cap(s), 0 Refill(s), Pharmacy: [facility]/pharmacy #[id number], Neuropathy, 177.8, cm, 02/18/24 0:50:00 EDT, [...] 0 Refill(s), 03/23/24 1:31:00 PM EDT, Pharmacy: [facility]/pharmacy #[id number], 177.8, cm, 02/18/24 0:50:00 EDT, Height, [...] qDay, # 90 cap(s), 0 Refill(s), Pharmacy: [facility]/pharmacy #[id number], 177.8, cm, 08/17/24 9:02:00 EDT, Height, kg, 08/17/24 9:02:00 EDT, Dosing Weight Start Date: 08/17/24 Status: Ordered Quantity: 90.0 Unit: cap(s) Repeat number: 1 Start: 05-19-2020 take 1 capsule by [facility] once daily omeprazole (PRILOSEC) 20 MG capsule Take 20 mg by mouth daily . 0 05/19/2020 Active Start: 05-19-2020 End: 06-18-2020 take 1 tablet by mouth once daily omeprazole (PRILOSEC OTC) 20 MG tablet Take 1 (one) tablet (20 mg total) by mouth daily . 30 tablet 0 05/19/2020 Active polyethylene glycol 3350 61510 mg powder for oral solution (9 sources) [...] number: 1 spironolactone 50 mg oral tablet (5 sources) Aldosterone Antagonist Start: 02-22-2024 Aldactone 50 mg oral tablet Dose : 50 mg = 1 tab(s), Oral, BID, # 60 tab(s), 0 Refill(s), Pharmacy: [facility]/pharmacy #[id number], 177.8, cm, 02/18/24 0:50:00 EDT, Height, kg, 02/18/24 0:50:00 EDT, Dosing Weight Start Date: 02/22/24 Status: Ordered Quantity: 60.0 Unit: tab(s) Repeat number: 1 Start: 02-02-2024 take 1 tablet by jean carlos once daily at mealtime Spironolactone 25 mg Tablet Active 25 mg PO DAILY WITH MEALS 23 06February 02, 2024 12:00am SUMAtriptan 25 mg oral tablet (3 sources) Serotonin-1b and Serotonin-1d Receptor Agonist Start: 07-08-2024 SUMAtriptan 25 mg or al tablet Dose : 25 mg = 1 [...] wheezing, # 30 EA, 0 Refill(s), Pharmacy: [facility]/pharmacy #[id number], 177.8, cm, 02/18/24 0:50:00 EDT, Height, [...] 40 mg, Subcutaneous, Daily, First dose on 05/19/20 at 0800 Administer in abdomen unless otherwise [...] Intravenous, Every 5 min PRN, Pain, Starting 05/18/20 at 0931, For 6 doses, PACU (only) [...] of femur, unspecified laterality, initial encounter (HCC) Take 1 (one) tablet (5 mg total) [...] action of this medication.Take with food. sennosides, custodial 8.6 mg oral tablet (1 source) Start: 12- End: senna (SENOKOT) tablet 8.6 mg sildenafil [...] oral tablet (20 sources) Opioid Agonist Start: take 1 tablet by mouth every six hours as needed for pain traMADol HCl - 50 MG Oral Tablet TAKE 1 TABLET Every 6 hours PRN pain. Do not drive or drink alcohol while on med. Quantity: 45 Refills: 0 Ordered: 03-Sep-2021 Nica IRAHETA, MPH, Oriana Warren Start : 30-Jul-2021 Active varenicline 0.5 mg oral tablet (4 sources) Partial Cholinergic Nicotinic Agonist Start: take 1 tablet by mouth once, then [...] Pack Quantity: 0 Refills: 0 Ordered: 03-Nov-2020 Susie IRAHETA Alvaro Start : 03-Nov-2020 Active Problems Active Problems Problem Classification Problem Date Documented Da te Episodic/Chronic Abdominal hernia (1 source) Diaphragmatic hernia without obstruction or gangrene; Translations: [Diaphragmatic hernia without obstruction or gangrene] Onset: 03-13-2022 Episodic Abdominal pain (10 sources) Flank pain; Translations: [Abdominal pain, other specified site] Onset: 02-20-2022 Episodic Alcohol-related disorders (16 sources) Alcohol dependence; Translations: [Alcohol dependence, uncomplicated] Onset: 05-19-2020 05-19-2020 Chronic Allergic reactions (20 sources) Eczema; Translations: [Contact dermatitis and other eczema, unspecified cause] Episodic Biliary tract disease (7 sources) Gallstone; Translations: [Calculus of gallbladder without [...] at home, initial encounter] Onset: 05-17-2020 05-17-2020 Genitourinary symptoms and ill-defined conditions (17 sources) [...] mention of spinal cord injury] Episodic Other gastrointestinal disorders (1 source) Ascites; Translations: [Other ascites] 02-10-2024 Episodic Other injuries and conditions due to [...] (HCC)] Onset: 03-10-2024 Chronic Other liver diseases (2 sources) Unspecified cirrhosis of liver; Translations: [Cirrhosis of liver without ascites, unspecified hepatic cirrhosis type (HCC)] Onset: 03-08-2024 Chronic Other liver diseases (2 sources) Portal hypertension; Translations: [Portal hypertension (HCC)] Onset: 03-08-2024 Chronic Other liver diseases (1 source) Liver disease, unspecified; Translations: [Liver disease, unspecified] Onset: 12-26-2024 Chronic Other liver diseases (1 source) Other specified diseases of liver; Translations: [Other specified diseases of liver] Onset: 12-26-2024 Chronic Other liver diseases (20 sources) Elevated [...] plasma protein metabolism] Onset: 03-08-2024 Chronic Other screening for suspected conditions (not mental disorders or infectious disease) (3 sources) Abnormal level of blood mineral; Translations: [Abnormal findings on diagnostic imaging of liver and biliary tract] Onset: 03-08-2024 Episodic Other skin disorders (20 sources) Eruption; Translations: [...] sources) Edema of foot; Translations: [Edema] Episodic Residual codes; unclassified (1 source) Bilateral lower limb edema; Translations: [Localized edema] 02-10-2024 Episodic Screening and history of mental health and substance abuse codes (1 source) Tobacco use and exposure - finding; Translations: [Personal history of nicotine dependence] 02-10-2024 Episodic Skin and subcutaneous tissue infections (20 [...] SCAN FIRST AT 1:00PM Unclassified (1 source) [facility] F[facility] PER JEY M 11-06-2020 Comment on above: [facility] PER JEY M Past or Other Problems Problem Classification Problem Date Documented Da te Episodic/Chronic Administrative/social admission (1 source) Other specified problems related to psychosocial circumstances; Translations: [Interpersonal problem] Onset: 4 Episodic Deficiency and other anemia (2 sources) Anemia, unspecified; Translations: [Anemia, unspecified type] Onset: 4 Episodic Fluid and electrolyte disorders (3 sources) Hypervolemia; Translations: [Fluid overload, unspecified] Onset: 4 Episodic Fracture of neck of [...] [Anesthesia of skin] Onset: 3 2012 Episodic NEGATED: Highlighted row has not occurred!Residual codes; unclassified (2 sources) Disease Episodic Results Test Name Value Interpretation Reference Range Facility US ABDOMEN LIMITEDon 08-05-2 025 US ABDOMEN LIMITED ORIGINAL EXAMINATION: LIMITED ABDOMINAL ULTRASOUND12/26/2024 5:00 pm Limited ultrasound of the abdomen attention right upper quadrant COMPARISON: Ultrasound 07/08/2024 TECHNIQUE: This report is based on interpretation of permanently recorded ultrasound images. HISTORY: ORDERING SYSTEM PROVIDED HISTORY: Reason for Exam: LIVER CIRRHOSIS, FINDINGS: The gallbladder is moderately distended with multiple calculi. No abnormal wall thickening. Negative sonographic Clayton's sign. There is no intrahepatic bile duct dilatation. The common duct is 3 mm at the kashmir hepatis. The visualized liver shows coarsening of echotexture and mildly increased echogenicity. No suspicious focal mass is seen. There is slight nodularity of some of the liver margins.. The visualized pancreas shows no focal lesion or mass but some portions are obscured by bowel gas artifacts. No ascites is seen in the RIGHT upper quadrant. Limited survey images of the RIGHT kidney show normal cortical thickness and echogenicity with no pelvocaliectasis. IMPRESSION: Diffuse hepatocellular disease with slightly nodular liver margins consistent with cirrhosis. Gallstones without secondary signs of acute cholecystitis. Interpreted by: Mel Cherry MD Preliminary Report By: Mel Cherry MD Electronically signed By Mel Cherry MD Dictated Date: 12/27/2024 1:27:24 PM Prelim Date: 12/27/2024 1:30:38 PM Sign Date: 12/27/2024 1:30:38 PM Ordering Provider: AUBRIE [place] Normal ZEFERINO MASSILLON AFP, Tumor Markeron 12-16-19 AFP TUMOR RAMAKRISHNA 4.4 ng/mL Normal 0.0-8.4 [facility] Comment on above: Order Comment: Reaso n for Exam: ascites Reason for Exam: Hepatitis Screen Result Comment: [facility] Electrochemiluminescence Immunoassay (ECLIA) Values obtained with different assay methods or kits cannot be used interchangeably. Results cannot be interpreted as absolute evidence of the presence or absence of malignant disease. This test is not interpretable in females. Performed at: [address] [id number] Central Processing Technician: Scott Pope PhD, Phone: [phone] Performed By: #### L 3890.6300, L3890.6100, L3890.6200 #### [facility] [address] [place], [place], [id number] Absolute lymphocyte counton 12-13-2024 Lymphocytes Auto (Unsp spec) [#/Vol] 1.91 10*3/uL 0.83-4.51 [facility] Absolute neutrophil counton 12-13-2024 Neutrophils (Bld) [#/Vol] 5.1 10*3/uL 2.0-7.7 [facility] Anion gap in Serum or Plasma on 12-13-2024 Anion gap [Moles/Vol] 11 mmol/L 5- [facility] Automated lymphocyte count a s percentage of total leukocyteson 12-13-2024 Lymphocytes/100 WBC Auto (Unsp spec) 24.1 % - [facility] BUN/creatinine ratioon 12-13 Urea nitrogen/Creatinine [Mass ratio] 8.6 mg/mg Low 10- [facility] Basophil percentageon 2024 Basophils/100 WBC (Bld) 1.0 % 0-1 [facility] Bilirubin, totalon Bilirubin [Mass/Vol] 1.14 mg/dL 0.00-1.30 [facility] CBC W/Diff, Automatedon 11-23 Hemoglobin (Bld) [Mass/Vol] 18.2 g/dL Invalid Interpretation Code 13.0-16.5 [facility] Comment on above: Result Comment: CRIT ICAL VALUE CALLED TO BG CONCEPCION 12/13/24 1602 Luoise Lucas. RESULTS READ BACK BY SAME. Performed By: #### L 3890.6300, L3890.6100, L3890.6200 #### [facility] [address] [place], [place], [id number] Absolute Lymph 1.91 X10 3/uL Normal 0.83-4.51 [facility] Comment on above: Performed By: #### L 3890.6300, L3890.6100, L3890.6200 #### [facility] [address] [place], [address] Absolute Neut 5.1 X10 3/uL Normal 2.0-7.7 [facility] Comment on above: Performed By: #### L 3890.6300, L3890.6100, L3890.6200 #### [facility] [address] [place], [address] Basophils/100 WBC (Bld) 1.0 % Normal 0-1 [facility] Comment on above: Performed By: #### L 3890.6300, L3890.6100, L3890.6200 #### [facility] [address] [place], [address] Eosinophils/100 WBC (Bld) 1.6 % Normal 0-5 [facility] Comment on above: Performed By: #### L 3890.6300, L3890.6100, L3890.6200 #### [facility] [address] [place], [address] Erythrocyte distribution width (RBC) [Ratio] 13.7 % Normal 11.6-14.6 [facility] Comment on above: Performed By: #### L 3890.6300, L3890.6100, L3890.6200 #### [facility] [address] [place], [address] Hematocrit (Bld) [Volume fraction] 52.7 % Normal 40-54 [facility] Comment on above: Performed By: #### L 3890.6300, L3890.6100, L3890.6200 #### [facility] [address] [place], [address] IG% 0.400 Normal 0.0-0.9 [facility] Comment on above: Result Comment: IG% - Immature Granulocytes (promyelocytes, myelocytes and metamyelocytes) > 1% indicates that a LEFT SHIFT is Present. Performed By: #### L 3890.6300, L3890.6100, L3890.6200 #### [facility] [address] [place], [address] Lymphocytes/100 WBC (Bld) 24.1 % Normal 19-41 [facility] Comment on above: Performed By: #### L 3890.6300, L3890.6100, L3890.6200 #### [facility] [address] [place], [address] MCH (RBC) [Entitic mass] 35.4 pg High 27.0-32.0 [facility] Comment on above: Performed By: #### L 3890.6300, L3890.6100, L3890.6200 #### [facility] [address] [place], [address] MCHC (RBC) [Mass/Vol] 34.5 g/dL Normal 32-36 [facility] Comment on above: Performed By: #### L 3890.6300, L3890.6100, L3890.6200 #### [facility] [address] [place], [address] MCV (RBC) [Entitic vol] 102.5 fL High 80-94 [facility] Comment on above: Performed By: #### L 3890.6300, L3890.6100, L3890.6200 #### [facility] [address] [place], [address] Monocytes/100 WBC (Bld) 9.1 % Normal 0-10 [facility] Comment on above: Performed By: #### L 3890.6300, L3890.6100, L3890.6200 #### [facility] [address] [place], [address] Neutrophils/100 WBC (Bld) 63.8 % Normal 47-70 [facility] Comment on above: Performed By: #### L 3890.6300, L3890.6100, L3890.6200 #### [facility] [address] [place], [address] Nucleated RBC (Bld) [#/Vol] 0 10*3/uL Normal 0-5 [facility] Comment on above: Performed By: #### L 3890.6300, L3890.6100, L3890.6200 #### [facility] [address] [place], [address] Platelet mean volume (Bld) [Entitic vol] 9.9 fL Normal 6.2-12.0 [facility] Comment on above: Performed By: #### L 3890.6300, L3890.6100, L3890.6200 #### [facility] [address] [place], [address] Platelets (Bld) [#/Vol] 267 10*3/uL Normal 150-450 [facility] Comment on above: Performed By: #### L 3890.6300, L3890.6100, L3890.6200 #### [facility] [address] [place], [address] RBC (Bld) [#/Vol] 5.14 10*6/uL Normal 4.6-6.2 [facility] Comment on above: Performed By: #### L 3890.6300, L3890.6100, L3890.6200 #### [facility] [address] [place], [address] RDW SD 52.9 fl High 35.1-43.9 [facility] Comment on above: Performed By: #### L 3890.6300, L3890.6100, L3890.6200 #### [facility] [address] [place], [address] WBC (Bld) [#/Vol] 7.9 10*3/uL Normal 4.4-11.0 [facility] Comment on above: Performed By: #### L 3890.6300, L3890.6100, L3890.6200 #### [facility] [address] [place], [address] Carbon dioxide, total [Moles /volume] in Central venous bloodon 12-13-2024 CO2 [Moles/Vol] 26.2 mmol/L 21.0-32.0 [facility] Chloride assayon 12-13-2024 Chloride [Moles/Vol] 98 mmol/L 98-108 [facility] Comprehensive Metabolic Prof ilon 12-13-2024 Albumin [Mass/Vol] 4.2 g/dL Normal 3.5-5.0 [facility] [facility] Comment on above: Performed By: #### L 3890.6300, L3890.6100, L3890.6200 #### [facility] [address] [place], [address] Albumin/Globulin [Mass ratio] 1.5 {ratio} Normal 0.9-2.4 [facility] Comment on above: Performed By: #### L 3890.6300, L3890.6100, L3890.6200 #### [facility] [address] [place], [address] ALK PHOS 191 U/L High 40-129 [facility] Comment on above: Performed By: #### L 3890.6300, L3890.6100, L3890.6200 #### [facility] [address] [place], [address] ALT [Catalytic activity/Vol] 39 U/L Normal <=46 [facility] Comment on above: Performed By: #### L 3890.6300, L3890.6100, L3890.6200 #### [facility] [address] [place], [address] AST [Catalytic activity/Vol] 48 U/L High <=37 [facility] Comment on above: Performed By: #### L 3890.6300, L3890.6100, L3890.6200 #### [facility] [address] [place], [address] Bilirubin [Mass/Vol] 1.14 mg/dL Normal 0.00-1.30 [facility] Comment on above: Performed By: #### L 3890.6300, L3890.6100, L3890.6200 #### [facility] [address] [place], [address] BUN/CRE 8.6 RATIO Low 10-20 [facility] Comment on above: Performed By: #### L 3890.6300, L3890.6100, L3890.6200 #### [facility] [address] [place], [address] Calcium [Mass/Vol] 9.4 mg/dL Normal 7.6-11.0 [facility] Comment on above: Performed By: #### L 3890.6300, L3890.6100, L3890.6200 #### [facility] [address] [place], [address] Chloride [Moles/Vol] 98 mmol/L Normal 98-108 [facility] Comment on above: Performed By: #### L 3890.6300, L3890.6100, L3890.6200 #### [facility] [address] [place], [address] CO2 [Moles/Vol] 26.2 mmol/L Normal 21.0-32.0 [facility] Comment on above: Performed By: #### L 3890.6300, L3890.6100, L3890.6200 #### [facility] [address] [place], [address] Creatinine [Mass/Vol] 0.78 mg/dL Normal 0.70-1.20 [facility] Comment on above: Performed By: #### L 3890.6300, L3890.6100, L3890.6200 #### [facility] [address] [place], [address] GAP 11 Normal 5-15 [facility] Comment on above: Performed By: #### L 3890.6300, L3890.6100, L3890.6200 #### [facility] [address] [place], [address] GFR/1.73 sq M.predicted among non-blacks MDRD (S/P/Bld) [Vol rate/Area] 103 mL/min/{1.73_m2} Normal >60 [facility] Comment on above: Result Comment: mL/m in/1.73m2 CKD-EPI Creatinine Equation (2020) Performed By: #### L 3890.6300, L3890.6100, L3890.6200 #### [facility] [address] [place], [address] Globulin (S) [Mass/Vol] 2.8 g/dL Normal 2.2-4.2 [facility] Comment on above: Performed By: #### L 3890.6300, L3890.6100, L3890.6200 #### [facility] [address] [place], [address] Glucose [Mass/Vol] 105 mg/dL High 70-99 [facility] Comment on above: Performed By: #### L 3890.6300, L3890.6100, L3890.6200 #### [facility] [address] [place], [address] Potassium [Moles/Vol] 4.2 mmol/L Normal 3.3-5.1 [facility] Comment on above: Performed By: #### L 3890.6300, L3890.6100, L3890.6200 #### [facility] [address] [place], [address] Sodium [Moles/Vol] 136 mmol/L Normal 133-145 [facility] Comment on above: Performed By: #### L 3890.6300, L3890.6100, L3890.6200 #### [facility] [address] [place], [address] T PROT 7.0 g/dL Normal 5.9-8.4 [facility] Comment on above: Performed By: #### L 3890.6300, L3890.6100, L3890.6200 #### [facility] [address] [place], [address] Urea nitrogen [Mass/Vol] 7 mg/dL Normal 4-19 [facility] Comment on above: Performed By: #### L 3890.6300, L3890.6100, L3890.6200 #### [facility] [address] [place], [address] Eosinophil percentageon 11-23 Eosinophils/100 WBC (Bld) 1.6 % 0-5 [facility] Erythrocyte distribution wid th ratioon 12-13-2024 Erythrocyte distribution width (RBC) [Ratio] 13.7 % 11.6-14.6 [facility] Erythrocyte distribution wid th standard deviationon 12-13-2024 Erythrocyte distribution width (RBC) [Ratio] 52.9 fl High 35.1-43.9 [facility] Glomerular filtration rate ( GFR) estimation/1.73 sq m using serum, plasma, or whole bon 12-13-2024 GFR/1.73 sq M.predicted among non-blacks MDRD (S/P/Bld) [Vol rate/Area] 103 mL/min/{1.73_m2} >60 [facility] Comment on above: mL/min/1.73m2 CKD-EP I Creatinine Equation (2020) Hematocrit Auto (Bld) [Volum e fraction]on 12-13-2024 Hematocrit (Bld) [Volume fraction] 52.7 % 40-54 [facility] Hemoglobin measurementon Hemoglobin (Bld) [Mass/Vol] 18.2 g/dL High 13.0-16.5 [facility] Comment on above: CRITICAL VALUE GONG D TO BG CONCEPCION12/13/24 1602 Louisetammy Lucas.RESULTS READ BACK BY SAME. Immature granulocytes/100 WB C Auto (Bld)on 12-13-2024 Immature granulocytes/100 WBC (Bld) 0.400 % 0.0-0.9 [facility] Comment on above: IG% - Immature Granu locytes (promyelocytes, myelocytes and metamyelocytes) > 1% indicates that a LEFT SHIFT is Present. International normalized rat io (INR) calculationon 12-13-2024 INR Coag (Bld) [Relative time] 0.9 {INR} [facility] - Chemistry and C hemistry - challengeon 12-13-2024 AST [Catalytic activity/Vol] 48 U/L High <38 [facility] MCV (mean corpuscular volume ) determinationon 12-13-2024 MCV (RBC) [Entitic vol] 102.5 fL High 80-94 [facility] Mean corpuscular hemoglobin (MCH) determinationon 12-13-2024 MCH (RBC) [Entitic mass] 35.4 pg High 27.0-32.0 [facility] Mean corpuscular hemoglobin concentration (MCHC) determinationon 12-13-2024 MCHC (RBC) [Mass/Vol] 34.5 g/dL 32-36 [facility] Mean platelet volume determi nationon 12-13-2024 Platelet mean volume (Bld) [Entitic vol] 9.9 fL 6.2-12.0 [facility] Monocyte percentageon 2024 Monocytes/100 WBC (Bld) 9.1 % 0-10 [facility] Neutrophil percentageon 11-23 Neutrophils/100 WBC (Bld) 63.8 % 47-70 [facility] Nucleated red blood cell per centageon 12-13-2024 Nucleated RBC/100 WBC (Bld) [Ratio] 0 % 0-5 [facility] Platelet counton 07-22-2025 Platelets (Bld) [#/Vol] 267 10*3/uL 150-450 [facility] Potassium measurement (mass/ volume)on 12-13-2024 Potassium (Unsp spec) [Mass/Vol] 4.2 mmol/L 3.3-5.1 [facility] Prothrombin Time w/INRon INR Coag (PPP) [Relative time] 0.9 {INR} Normal [facility] Comment on above: Performed By: #### L 3890.6300, L3890.6100, L3890.6200 #### [facility] [address] [place], [address] PT Coag (PPP) [Time] 11.9 s Normal 11.7-14.9 [facility] Comment on above: Performed By: #### L 3890.6300, L3890.6100, L3890.6200 #### [facility] [address] [place], [address] Prothrombin timeon PT Coag (PPP) [Time] 11.9 s 11.7-14.9 [facility] RBC Auto (Bld) [#/Vol]on RBC (Bld) [#/Vol] 5.14 10*6/uL 4.6-6.2 [facility] Serum creatinine measurement (mass/volume)on 12-13-2024 Creatinine [Mass/Vol] 0.78 mg/dL 0.70-1.20 [facility] Serum globulin measurementon 12-13-2024 Globulin (S) [Mass/Vol] 2.8 g/dL 2.2-4.2 [facility] Serum glucose measurement (m ass/volume)on 12-13-2024 Glucose [Mass/Vol] 105 mg/dL High 70-99 [facility] Serum or plasma alanine medina otransferase (ALT) measurementon 12-13-2024 ALT [Catalytic activity/Vol] 39 U/L <47 [facility] Serum or plasma albumin malick urement (mass/volume)on 12-13-2024 Albumin [Mass/Vol] 4.2 g/dL 3.5-5.0 [facility] Serum or plasma albumin/glob ulin mass ratioon 12-13-2024 Albumin/Globulin [Mass ratio] 1.5 {ratio} 0.9-2.4 [facility] Serum or plasma alkaline anthony sphatase measurementon 12-13-2024 ALP [Catalytic activity/Vol] 191 U/L High 40-129 [facility] Serum or plasma calcium malick urement (mass/volume)on 12-13-2024 Calcium [Mass/Vol] 9.4 mg/dL 7.6-11.0 [facility] Serum or plasma urea nitroge n measurement (mass/volume)on 12-13-2024 Urea nitrogen [Mass/Vol] 7 mg/dL 4-19 [facility] Sodium levelon 12-13-2024 Sodium [Moles/Vol] 136 mmol/L 133-145 [facility] Total proteinon 12-13-2024 Protein [Mass/Vol] 7.0 g/dL 5.9-8.4 [facility] White blood cell (WBC) count on 12-13-2024 WBC (Bld) [#/Vol] 7.9 10*3/uL 4.4-11.0 [facility] Final Surgical Pathology Rep [facility] 08-18-2024 Final Surgical Pathology Report . Pathology Reports Accession: Collected Date/Time: Received Date/Time: Pathologist: [id number] 08/17/2024 10:53 EDT 08/17/2024 14:38 EDT DAMON [...] All parts labelled with patient name and [id number] A. Received in formalin labeled gastric biopsy [...] debris also identified. TS-1 Samreen Bush, Grossing Natural Resources Instructor/ Dr. Damon Atkinson, Pathologist Performed by Samreen Bush MICROSCOPIC DESCRIPTION: The microscopic examination is performed, except in the case of Gross Only. Verified by Pathology Report verified by [facility] DAMON ATKINSON Sign out Date: 08/18/2024 14:24 Performing Lab: [address] Pathology Dept Pathology Reports Accession: Collected Date/Time: Received Date/Time: Pathologist: [id number] 08/17/2024 10:53 EDT 08/17/2024 14:38 EDT DAMON ATKINSON MD Disclaimer If ancillary studies were utilized, the following Laboratory Developed Test (LDT) disclaimer will apply: Under CLIA requirements, [facility] is qualified to perform high complexity testing. For all ancillary stains, positive and negative controls stain appropriately. Performance characteristics of immunohistochemical and chromogenic in-situ hybridization tests have been determined by [facility]. These tests are used for clinical purposes, They should not be regarded as investigational or for research. . Normal [facility] .Auto Diffon 08-03-2024 Basophil, Absolute 0.1 10 3/mcL Normal 0.0-0.3 [facility] Comment on above: Performed By: #### G FR, BMP, CBC, ADIFF, ANEU ####[place] [address] Basophils/100 WBC (Bld) 1.3 % Normal 0.0-2.5 [facility] Comment on above: Performed By: #### G FR, BMP, CBC, ADIFF, ANEU ####[address] [address] Eosinophil, Absolute 0.2 10 3/mcL Normal 0.0-0.7 [facility] Comment on above: Performed By: #### G FR, BMP, CBC, ADIFF, ANEU ####[address] [address] Eosinophils/100 WBC (Bld) 3.6 % Normal 0.0-6.0 [facility] Comment on above: Performed By: #### G FR, BMP, CBC, ADIFF, ANEU ####[address] [address] Lymphocyte, Absolute 2.4 10 3/mcL Normal 0.9-4.3 [facility] Comment on above: Performed By: #### G FR, BMP, CBC, ADIFF, ANEU ####[address] [address] Lymphocytes/100 WBC (Bld) 37.9 % Normal 20.0-40.0 [facility] Comment on above: Performed By: #### G FR, BMP, CBC, ADIFF, ANEU ####[address] [address] Monocyte, Absolute 0.6 10 3/mcL Normal 0.1-1.4 [facility] Comment on above: Performed By: #### G FR, BMP, CBC, ADIFF, ANEU ####[address] [address] Monocytes/100 WBC (Bld) 9.7 % Normal 2.0-13.0 [facility] Comment on above: Performed By: #### G FR, BMP, CBC, ADIFF, ANEU ####[address] [address] Neutrophils/100 WBC (Bld) 47.5 % Low 50.0-75.0 [facility] Comment on above: Performed By: #### G FR, BMP, CBC, ADIFF, ANEU ####[place] [address] .GFRon 08-03-2024 Estimated Glomerular Filtration Rate 102 ml/min/1.73sqm Normal [facility] Comment on above: Result Comment: [...] #### G FR, BMP, CBC, ADIFF, ANEU ####[place] [address] .NEUABSon 08-03-2024 Neutrophil, Absolute 3.0 10 3/mcL Normal 2.3-8.1 [facility] Comment on above: Performed By: #### G FR, BMP, CBC, ADIFF, ANEU ####[place] [address] BMPon 08-03-2024 BUN/Creatinine Ratio 8.6 ratio Low 10.0-22.0 [facility] Comment on above: Performed By: #### G FR, BMP, CBC, ADIFF, ANEU ####[place] [address] Calcium [Mass/Vol] 9.5 mg/dL Normal 8.7-10.4 [facility] Comment on above: Performed By: #### G FR, BMP, CBC, ADIFF, ANEU ####[place] [address] Chloride [Moles/Vol] 104 mmol/L Normal 98-110 [facility] Comment on above: Performed By: #### G FR, BMP, CBC, ADIFF, ANEU ####[place] [address] CO2 [Moles/Vol] 29 mmol/L Normal 22-32 [facility] Comment on above: Performed By: #### G FR, BMP, CBC, ADIFF, ANEU ####[address] [address] Creatinine [Mass/Vol] 0.81 mg/dL Normal 0.60-1.40 [facility] Comment on above: Result Comment: Test ing performed on Sonian analyzer using enzymatic creatinine methodology. Performed By: #### G FR, BMP, CBC, ADIFF, ANEU ####[address] [address] Electrolyte Balance 5.0 mEq/L Normal 4.0-15.0 [facility] Comment on above: Performed By: #### G FR, BMP, CBC, ADIFF, ANEU ####[address] [address] Glucose [Mass/Vol] 117 mg/dL High 70-110 [facility] Comment on above: Performed By: #### G FR, BMP, CBC, ADIFF, ANEU ####[address] [address] Potassium [Moles/Vol] 4.3 mmol/L Normal 3.5-5.0 [facility] Comment on above: Performed By: #### G FR, BMP, CBC, ADIFF, ANEU ####[place] [address] Sodium [Moles/Vol] 138 mmol/L Normal 136-145 [facility] Comment on above: Performed By: #### G FR, BMP, CBC, ADIFF, ANEU ####[address] [address] Urea nitrogen [Mass/Vol] 7.0 mg/dL Low 8.0-22.0 [facility] Comment on above: Performed By: #### G FR, BMP, CBC, ADIFF, ANEU ####[address] [address] CBCon 08-03-2024 Erythrocyte distribution width (RBC) [Ratio] 15.3 % Normal 11.5-15.5 [facility] Comment on above: Performed By: #### G FR, BMP, CBC, ADIFF, ANEU ####[place] [address] Hematocrit (Bld) [Volume fraction] 46.2 % Normal 40.0-52.0 [facility] Comment on above: Performed By: #### G FR, BMP, CBC, ADIFF, ANEU ####[place] [address] Hgb 15.6 G/dL Normal 13.0-17.5 [facility] Comment on above: Performed By: #### G FR, BMP, CBC, ADIFF, ANEU ####[place] [address] MCH (RBC) [Entitic mass] 32.7 pg Normal 27.0-33.0 [facility] Comment on above: Performed By: #### G FR, BMP, CBC, ADIFF, ANEU ####[place] [address] MCHC 33.8 G/dL Normal 32.0-36.0 [facility] Comment on above: Performed By: #### G FR, BMP, CBC, ADIFF, ANEU ####[place] [address] MCV (RBC) [Entitic vol] 96.6 fL Normal 81.0-100.0 [facility] Comment on above: Performed By: #### G FR, BMP, CBC, ADIFF, ANEU ####[place] [address] Platelet 244 10 3/mcL Normal 150-450 [facility] Comment on above: Performed By: #### G FR, BMP, CBC, ADIFF, ANEU ####[place] [address] Platelet mean volume (Bld) [Entitic vol] 7.6 fL Normal 6.4-10.5 [facility] Comment on above: Performed By: #### G FR, BMP, CBC, ADIFF, ANEU ####[place] [address] RBC 4.78 10 6/mcL Normal 4.50-6.00 [facility] Comment on above: Performed By: #### G FR, BMP, CBC, ADIFF, ANEU ####[facility] [place] [address] WBC 6.4 10 3/mcL Normal 4.5-10.8 [facility] Comment on above: Performed By: #### G FR, BMP, CBC, ADIFF, ANEU ####[facility] [place] [address] LABORATORYOrdered By: SYSTEM SYSTEM on 08-03-2024 Basophils (Bld) [#/Vol] 0.1 103/mcL Normal 0.0 - 0.3 10^3/mcL Workflow SS Basophils/100 WBC (Bld) 1.3 % Normal 0.0 - 2.5 % Workflow SS Calcium [Mass/Vol] 9.5 mg/dL Normal 8.7 - 10. 4 mg/dL ADM SS Chloride [Moles/Vol] 104 mmol/L Normal 98 - 110 mEq/L ADM SS CO2 [Moles/Vol] 29 mmol/L Normal 22 - 32 mEq/L ADM SS Creatinine [Mass/Vol] 0.81 mg/dL Normal 0.60 - 1.40 mg/dL AH ADM SS Comment on above: Interpretive Data: T esting performed on Sonian analyzer using enzymatic creatinine methodology. Electrolyte Balance 5.0 mEq/L Normal 4.0 - 15 .0 mEq/L ADM SS Eosinophils (Bld) [#/Vol] 0.2 103/mcL Normal 0.0 - 0.7 10^3/mcL Workflow SS Eosinophils/100 WBC (Bld) 3.6 % [...] 138 mmol/L Normal 136 - 145 mEq/L AH ADM SS Urea nitrogen [Mass/Vol] 7.0 mg/dL [...] within the clavicle with mild degenerative change. Can Piler: KIRSTEN Transcribe Date/Time: Jul 30 2024 5:59A Dictated by : CHAUNCEY LUNA MD This examination was interpreted and the report reviewed and electronically signed by: CHAUNCEY LUNA MD on Jul 30 2024 6:00AM EST [id number] Normal [facility] US ABDOMEN FOR ASCITESon US ABDOMEN FOR [...] 07/08/2024 11:49:06 AM Ordering Provider: AUBRIE BIRMINGHAM [facility] US ELASTOGRAPHY LIVER W/ABD LTDon 07-08-2024 US [...] 1.66-1.77 m/s (8.29 kPa - 9.40 kPa) [id number] risk of clinically significant liver fibrosis. (METAVIR [...] 07/08/2024 3:21:09 PM Ordering Provider: AUBRIE BIRMINGHAM [facility] CRP SerPl-mCncon 06-22-2024 CRP [Mass/Vol] mg/L Normal <1.0 [facility] Comment on above: Order Comment: Demetrio ch Type: BLOOD SPECIMEN Ordering Facility: [facility] ([facility] Address: [address] [place] [address] Performed By: #### 2 132, 1987-09 #### [facility] CLIA [id number] [address] [place] [address] [place] ESR Westergren method (Bld) [Velocity]on 06-22-2024 ESR (Bld) [Velocity] 5 mm/h Normal 0-20 [facility] Comment on above: Order Comment: Demetrio ch Type: BLOOD SPECIMEN Ordering Facility: [facility] Address: [address] [place] [address] Performed By: #### 3 4528-0 #### [facility] CLIA [id number] [address] [place] [address] [place] Vit B12 SerPl-mCncon 025 Cobalamin (Vitamin B12) [Mass/Vol] 369 pg/mL Normal 193-986 [facility] Comment on above: Order Comment: Demetrio ch Type: BLOOD SPECIMEN Ordering Facility: [facility] ([facility] Address: [address] [place] [address] Performed By: #### 2 1329, 1987-09 #### [facility] CLIA [id number] [address] [place] [address] [place] BRAIN WO IVCONon 04-08-20 CT BRAIN WO IVCON * * *Final Report* * * DATE OF EXAM: Apr 08 2024 11:35AM [facility] 0504 - CT BRAIN WO IVCON / [...] and mild chronic small vessel ischemic change. Can Piler: PSCHome Transcribe Date/Time: Apr 11 2024 7:44A Dictated by : CHAUNCEY LUNA MD This examination was interpreted and the report reviewed and electronically signed by: CHAUNCEY LUNA MD on Apr 11 2024 7:48AM EST [id number] Normal [facility] Copper (24H U) [Mass/Vol]on 03-10-2024 Copper (24H U) [Mass/Time] <7.0 Normal <40.0 [facility] Comment on above: Order Comment: Speci men Type: URINE SPECIMEN Ordering Facility: [facility] Address: [address] [place] [address] Result Comment: Urin e copper results >100???g/24h may be indicative of Isreal's Disease. This test was developed, and its performance characteristics determined by the [facility] Department of Pathology and Laboratory Medicine. It has not been cleared or approved by the FDA. The [facility] Department of Pathology and Laboratory Medicine is regulated under CLIA as qualified to perform high-complexity testing. This test is used for clinical purposes. It should not be regarded as investigational or for research. Performed By: #### 2 1219-1 #### [facility] CLIA [id number] [facility] CLIA [id number] [address] [place] [address] [place] PERIOD (HRS) 24 hr Normal [facility] Comment on above: Order Comment: Speci men Type: URINE SPECIMEN Ordering Facility: [facility] Address: [address] [place] [address] Performed By: #### 2 1219-1 #### [facility] CLIA [id number] [address] [place] [address] STATES OF [facility] CLIA [id number] [address] [place] [address] Specimen volume (24H U) 1.4 L Normal [facility] Comment on above: Order Comment: Speci men Type: URINE SPECIMEN Ordering Facility: [facility] Address: [address] [place] [address] Performed By: #### 2 1219-1 #### [facility] CLIA [id number] [address] [place] [address] STATES [facility] CLIA [id number] [address] [place] [address] [place] CBC W Auto Differential pane l (Bld)on 03-08-2024 Basophils (Bld) [#/Vol] 0.06 10*3/uL Normal <0.11 [facility] Comment on above: Order Comment: Speci men Type: BLOOD SPECIMEN Ordering Facility: [facility] Address: [address] [place] [address] Performed By: #### 5 7021-8 #### [facility] CLIA [id number] [address] [place] [address] [place] Basophils/100 WBC (Bld) 0.8 % Normal [facility] Comment on above: Order Comment: Speci men Type: BLOOD SPECIMEN Ordering Facility: [facility] Address: [address] [place] [address] Performed By: #### 5 7021-8 #### [facility] CLIA [id number] [address] [place] [address] [place] Differential cell count method Nom (Bld) Auto Normal [facility] Comment on above: Order Comment: Speci men Type: BLOOD SPECIMEN Ordering Facility: [facility] Address: [address] [place] [address] Performed By: #### 5 7021-8 #### [facility] CLIA [id number] [address] [place] [address] [place] Eosinophils (Bld) [#/Vol] 0.20 10*3/uL Normal <0.46 [facility] Comment on above: Order Comment: Speci men Type: BLOOD SPECIMEN Ordering Facility: [facility] Address: [address] [place] [address] Performed By: #### 5 7021-8 #### [facility] CLIA [id number] [address] [place] [address] [place] Eosinophils/100 WBC (Bld) 2.6 % Normal [facility] Comment on above: Order Comment: Speci men Type: BLOOD SPECIMEN Ordering Facility: [facility] Address: [address] [place] [address] Performed By: #### 5 7021-8 #### [facility] CLIA [id number] [address] [place] [address] [place] Erythrocyte distribution width (RBC) [Ratio] 13.1 % Normal 11.5-15.0 [facility] Comment on above: Order Comment: Speci men Type: BLOOD SPECIMEN [facility]ing [facility]: [facility] [facility] Address: [address] [place] [address] Performed By: #### 5 7021-8 #### [facility] CLIA [id number] [address] [place] [address] [place] Hematocrit (Bld) [Volume fraction] 40.7 % Normal 39.0-51.0 [facility] Comment on above: Order Comment: Speci men Type: BLOOD SPECIMEN Ordering Facility: [facility] Address: [address] [place] [address] Performed By: #### 5 7021-8 #### [facility] CLIA [id number] [address] [place] [address] [place] Hemoglobin (Bld) [Mass/Vol] 13.0 g/dL Normal 13.0-17.0 [facility] Comment on above: Order Comment: Speci men Type: BLOOD SPECIMEN Ordering Facility: [facility] Address: [address] [place] [address] Performed By: #### 5 7021-8 #### [facility] CLIA [id number] [address] [place] [address] [place] Immature granulocytes (Bld) [#/Vol] 10*3/uL Normal <0.10 [facility] Comment on above: Order Comment: Speci men Type: BLOOD SPECIMEN Ordering Facility: [facility] Address: [address] [place] [address] Performed By: #### 5 7021-8 #### [facility] CLIA [id number] [address] [place] [address] [place] Immature granulocytes/100 WBC (Bld) 0.3 % Normal [facility] Comment on above: Order Comment: Speci men Type: BLOOD SPECIMEN Ordering Facility: [facility] Address: [address] [place] [address] Performed By: #### 5 7021-8 #### [facility] CLIA [id number] [address] [place] [address] [place] Lymphocytes (Bld) [#/Vol] 2.15 10*3/uL Normal 1.00-4.00 [facility] Comment on above: Order Comment: Speci men Type: BLOOD SPECIMEN Ordering Facility: [facility] Address: [address] [place] [address] Performed By: #### 5 7021-8 #### [facility] CLIA [id number] [address] [place] [address] STATES [facility] Lymphocytes/100 WBC (Bld) 28.1 % Normal [facility] Comment on above: Order Comment: Speci men Type: BLOOD SPECIMEN Ordering Facility: [facility] Address: [address] [place] [address] Performed By: #### 5 7021-8 #### [facility] CLIA [id number] [address] [place] [address] MCH (RBC) [Entitic mass] 34.1 pg High 26.0-34.0 [facility] Comment on above: Order Comment: Speci men Type: BLOOD SPECIMEN Ordering Facility: [facility] Address: [address] [place] [address] Performed By: #### 5 7021-8 #### [facility] CLIA [id number] [address] [place] [address] [place] MCHC (RBC) [Mass/Vol] 31.9 g/dL Normal 30.5-36.0 [facility] Comment on above: Order Comment: Speci men Type: BLOOD SPECIMEN Ordering Facility: [facility] Address: [address] [place] [address] Performed By: #### 5 7021-8 #### [facility] CLIA [id number] [address] [place] [address] [place] MCV (RBC) [Entitic vol] 106.8 fL High 80.0-100.0 [facility] Comment on above: Order Comment: Speci men Type: BLOOD SPECIMEN Ordering Facility: [facility] Address: [address] [place] [address] Performed By: #### 5 7021-8 #### [facility] CLIA [id number] [address] [place] [address] Monocytes (Bld) [#/Vol] 0.63 10*3/uL Normal <0.87 [facility] Comment on above: Order Comment: Speci men Type: BLOOD SPECIMEN Ordering Facility: [facility] Address: [address] [place] [address] Performed By: #### 5 7021-8 #### [facility] CLIA [id number] [address] [place] [address] [place] Monocytes/100 WBC (Bld) 8.2 % Normal [facility] Comment on above: Order Comment: Speci men Type: BLOOD SPECIMEN Ordering Facility: [facility] Address: [address] [place] [address] Performed By: #### 5 7021-8 #### [facility] CLIA [id number] [address] [place] [address] [place] Neutrophils (Bld) [#/Vol] 4.58 10*3/uL Normal 1.45-7.50 [facility] Comment on above: Order Comment: Speci men Type: BLOOD SPECIMEN Ordering Facility: [facility] Address: [address] [place] [address] Performed By: #### 5 7021-8 #### [facility] CLIA [id number] [address] [place] [address] [place] [address] [place] Neutrophils/100 WBC (Bld) 60.0 % Normal [facility] Comment on above: Order Comment: Speci men Type: BLOOD SPECIMEN Ordering Facility: [facility] Address: [address] [place] [address] Performed By: #### 5 7021-8 #### [facility] CLIA [id number] [address] [place], [place] [address] [place] Platelet mean volume (Bld) [Entitic vol] 8.8 fL Low 9.0-12.7 [facility] Comment on above: Order Comment: Speci men Type: BLOOD SPECIMEN Ordering Facility: [facility] Address: [address] [place] [address] Performed By: #### 5 7021-8 #### [facility] CLIA [id number] [address] [place] [address] [place] Platelets (Bld) [#/Vol] 412 10*3/uL High 150-400 [facility] Comment on above: Order Comment: Speci men Type: BLOOD SPECIMEN Ordering Facility: [facility] Address: [address] [place] [address] Performed By: #### 5 7021-8 #### [facility] CLIA [id number] [address] [place], [place] [id number] [place] [address] OF [place] RBC (Bld) [#/Vol] 3.81 10*6/uL Low 4.20-6.00 [facility] Comment on above: Order Comment: Speci men Type: BLOOD SPECIMEN Ordering Facility: [facility] Address: [address] [place] [address] Performed By: #### 5 7021-8 #### [facility] CLIA [id number] [address] WBC (Bld) [#/Vol] 7.64 10*3/uL Normal 3.70-11.00 [facility] Comment on above: Order Comment: Speci men Type: BLOOD SPECIMEN Ordering Facility: [facility] Address: [address] [place] [address] Performed By: #### 5 7021-8 #### [facility] CLIA [id number] [address] [place] [address] [facility] Comprehensive metabolic 2000 panelon 03-08-2024 Albumin [Mass/Vol] 2.8 g/dL Low 3.2-5.0 [facility] Comment on above: Order Comment: Speci men Type: BLOOD SPECIMEN Ordering Facility: [facility] Address: [address] [place] [address] Performed By: #### 2 132-9, 69650-3 #### [facility] CLIA [id number] [address] [place] [address] [facility] ALP [Catalytic activity/Vol] 164 U/L High 45-117 [facility] Comment on above: Order Comment: Speci men Type: BLOOD SPECIMEN Ordering Facility: [facility] Address: [address] [place] [address] Performed By: #### 2 132-9, 13511-6 #### [facility] CLIA [id number] [address] [place] [address] [place] ALT [Catalytic activity/Vol] 12 U/L Low 13-61 [facility] Comment on above: Order Comment: Speci men Type: BLOOD SPECIMEN Ordering Facility: [facility] Address: [address] [place] [address] Result Comment: Resu lts may be falsely depressed after the administration of Sulfasalazine and/or Sulfapyridine. Performed By: #### 2 132-9, 70553-7 #### [facility] CLIA [id number] [address] [place] [address] [place] Anion gap [Moles/Vol] 5 mmol/L Normal 5-16 [facility] Comment on above: Order Comment: Speci men Type: BLOOD SPECIMEN Ordering Facility: [facility] Address: [address] [place] [address] Performed By: #### 2 132-9, #### [facility] CLIA [id number] [address] [place] [address] [place] AST [Catalytic activity/Vol] 26 U/L Normal 8-34 [facility] Comment on above: Order Comment: Speci men Type: BLOOD SPECIMEN Ordering Facility: [facility] Address: [address] [place] [address] Result Comment: Resu lts may be falsely depressed after the administration of Sulfasalazine and/or Sulfapyridine. Performed By: #### 2 132-9, 58482-4 #### [facility] CLIA [id number] [address] [place] [address] [place] Bilirubin [Mass/Vol] 0.5 mg/dL Normal 0.2-1.0 [facility] Comment on above: Order Comment: Speci men Type: BLOOD SPECIMEN Ordering Facility: [facility] Address: [address] [place] [address] Performed By: #### 2 132-9, 82935-7 #### [facility] CLIA [id number] [address] [place], [place] [address] [place] Calcium [Mass/Vol] 10.1 mg/dL Normal 8.5-10.5 [facility] Comment on above: Order Comment: Speci men Type: BLOOD SPECIMEN Ordering Facility: [facility] Address: [address] [place] [address] Performed By: #### 2 132-9, 28684-5 #### [facility] CLIA [id number] [address] [place] [address] [place] Chloride [Moles/Vol] 102 mmol/L Normal 98-107 [facility] Comment on above: Order Comment: Speci men Type: BLOOD SPECIMEN Ordering Facility: [facility] Address: [address] [place] [address] Performed By: #### 2 132-9, 42347-3 #### [facility] CLIA [id number] [address] [place] [address] [place] CO2 [Moles/Vol] 30 mmol/L Normal 21-32 [facility] Comment on above: Order Comment: Speci men Type: BLOOD SPECIMEN Ordering Facility: [facility] Address: [address] [place] [address] Performed By: #### 2 132-9, 71308-7 #### [facility] CLIA [id number] [address] [place] [address] [place] Creatinine [Mass/Vol] 0.75 mg/dL Normal 0.50-1.40 [facility] Comment on above: Order Comment: Rishii men Type: BLOOD SPECIMEN Ordering Facility: [facility] Address: [address] [place] [address] Result Comment: Melissa ents receiving either N-Acetylcysteine (NAC) or Metamizole prior to venipuncture, may have falsely depressed results. Performed By: #### 2 132-9, 04472-8 #### [facility] CLIA [id number] [address] [place] [address] [place] Creatinine and Glomerular filtration rate.predicted panel (S/P/Bld) 105 mL/min/1.73m??? Normal >=60 [facility] Comment on above: Order Comment: Demetrio ch Type: BLOOD SPECIMEN Ordering Facility: [facility] Address: [address] [place] [address] Result Comment: Marleny mated Glomerular Filtration Rate [...] actual GFR. Performed By: #### 2 132-9, 06551-7 #### [facility] CLIA [id number] [address] [place] [address] [place] Glucose [Mass/Vol] 106 mg/dL High 70-100 [facility] Comment on above: Order Comment: Demetrio ch Type: BLOOD SPECIMEN Ordering Facility: [facility] Address: [address] [place] [address] Result Comment: The [place] Diabetes Association (ADA) provides guidance for cutoff [...] Standards of Medical Care in Diabetes 2016, [place] [employer]. Diabetes Care. 2016.39(Suppl 1). Results may be falsely elevated after the administration of Sulfapyridine. Results may be falsely depressed after the administration of Sulfasalazine. Performed By: #### 2 132-9, 03875-2 #### [facility] CLIA [id number] [address] [place] [address] [place] Potassium [Moles/Vol] 5.0 mmol/L Normal 3.5-5.1 [facility] Comment on above: Order Comment: Demetrio ch Type: BLOOD SPECIMEN Ordering Facility: [facility] Address: [address] [place] [address] Performed By: #### 2 132-9, 46557-9 #### [facility] CLIA [id number] [address] [place] [address] [place] [facility] Protein [Mass/Vol] 6.8 g/dL Normal 6.0-8.5 [facility] Comment on above: Order Comment: Speci men Type: BLOOD SPECIMEN Ordering Facility: [facility] Address: [address] [place] [address] Performed By: #### 2 132-9, 05309-1 #### [facility] CLIA [id number] [address] [place] [address] [place] Sodium [Moles/Vol] 137 mmol/L Normal 136-145 [facility] Comment on above: Order Comment: Speci men Type: BLOOD SPECIMEN Ordering Facility: [facility] Address: [address] [place] [address] Performed By: #### 2 132-9, 74943-7 #### [facility] CLIA [id number] [address] [place] [address] [place] Urea nitrogen [Mass/Vol] 10 mg/dL Normal 7- [facility] Comment on above: Order Comment: Speci men Type: BLOOD SPECIMEN Ordering Facility: [facility] Address: [address] [place] [address] Performed By: #### 2 132-9, 99948-7 #### [facility] CLIA [id number] [address] [place] [address] [place] Folate SerPl-mCncon 03-08-20 24 Folate [Mass/Vol] 3.4 ng/mL Normal >3.0 [facility] Comment on above: Order Comment: Speci men Type: BLOOD SPECIMEN Ordering Facility: [facility] Address: [address] [place] [address] Performed By: #### 2 284-8 #### [facility] CLIA [id number] [address] [place] [address] [place] PT panel Coag (PPP)on 2023 INR Coag (PPP) [Relative time] 0.9 {INR} Normal 0.9-1.3 [facility] Comment on above: Order Comment: Demetrio ch Type: BLOOD SPECIMEN Ordering Facility: [facility] Address: [address] [place] [address] Result Comment: Linda min K Antagonist (VKA) Therapeutic Range: INR 2 to 3 (Target INR of 2.5) Note: For patients treated with VKA drugs, such as warfarin, the [place] [employer] Chest [employer]icians 2012 Guideline recommends [...] CARBAJAL, et al. Chest 2012, 141:7S-47S Dash RA, et al. [facility] 2017, 70: 252-289 Performed By: #### 3 4528-0 #### [facility] CLIA [id number] [address] [place] [address] [place] PT Coag (PPP) [Time] 10.0 s Normal 9.7-13.0 [facility] Comment on above: Order Comment: Demetrio ch Type: BLOOD SPECIMEN Ordering Facility: [facility] Address: [address] [place] [address] Performed By: #### 3 4528-0 #### [facility] CLIA [id number] [address] [place] [address] [place] Vit B12 SerPl-mCncon 024 Cobalamin (Vitamin B12) [Mass/Vol] 472 pg/mL Normal 193-986 [facility] Comment on above: Order Comment: Demetrio ch Type: BLOOD SPECIMEN Ordering Facility: [facility] Address: [address] [place] [address] Performed By: #### 2 132-9, 61873-4 #### [facility] CLIA [id number] [address] [place] [address] [facility] ENDOon 02-25-2024 TTG Ab (IgA) <4.0 Normal <=3.9 [facility] Comment on above: Result Comment: Effe ctive 12/15/2022: Evaluation of Transglutaminase Ab (IgA) [...] These test results were obtained with the [employer] QUANTA Lite R-tTG IgA FEMI. R-tTG IgA values obtained with different manufacturers' assay methods may not be used interchangeably. Performed By: #### U A #### [place] [address] AATon 02-23-2024 P-4-Diulrhprgrh 163 mg/dL Normal 101-187 [facility] Comment on above: Result Comment: Perf ormed At: [facility] [address] [id number] Niko Chavez PhD Ph:[phone] Performed By: #### U A #### [place] [address] AHAVGon 02-23-2024 Hepatitis A Antibody IgG Positive Normal [facility] Comment on above: Result Comment: Cons istent with serological evidence of immunity to Hepatitis A Virus. Performed By: [facility] [employer] [address] [place] [address] Central Processing Technician: Carlos Tidwell III, M.D. CLIA#: [id number] Performed By: #### U A #### [address] [address] ANAIFSon 02-23-2024 Antinuclear Ab Screen Negative Normal Negative [facility] Comment on above: Result Comment: Anti -nuclear antibody test is used as an aid in diagnosis of systemic autoimmune diseases. Where positive and clinically warranted, follow-up using disease-specific testing is recommended. Low positive titers are not uncommon with advanced age, certain chronic infections, and malignancies among others. Test methodology: Indirect fluorescence immunoassay (IFA) using HEp-2 cells. Performed By: [facility] [address] [place] [address] Central Processing Technician: Carlos Tidwell III, M.D. CLIA#: [id number] Performed By: #### U A #### [place] [address] Performed By: #### A FPS, FERR, HCV1, HIV, ANAIFS, HBSAG, FES ####[place] [address] BFCTon 02-23-2024 Cells Counted BF 100 [facility] Comment on above: Performed By: #### U A #### [place] [id number] Lymphocytes/100 WBC (Bld) 52 % [facility] Comment on above: Performed By: #### U A #### [place] [id number] Mesothelial Cell % BF 11 % [facility] Comment on above: Performed By: #### U A #### [place] [address] Mononuclear cell % BF 5 % [facility] Comment on above: Performed By: #### U A #### [place] [id number] Neutrophils/100 WBC (Bld) 32 % [facility] Comment on above: Performed By: #### U A #### [place] [address] BFPRon 02-23-2024 Body Fluid Path Review [facility] Comment on above: Order Comment: Added by Discern Result Comment: Nega tive for malignant cells. (This evaluation is based on a screening review of one cytospin slide prepared primarily for differential cell count; if clinical index of suspicion is high, Cytology evaluation is recommended, as clinically indicated) Electronically signed by: LAURA COLON 02.23.2024 10:21 EDT Performed By: #### U A #### [place] [address] Non-Home Attendant Cytology Reporton Non-Home Attendant Cytology Report . Pathology Reports Accession: Collected Date/Time: Received Date/Time: Pathologist: [id number] 02/22/2024 12:06 EDT 02/22/2024 14:00 EDT LAURA COLON MD Non-Home Attendant Cytology Report CLINICAL INFORMATION: Ascites DIAGNOSTIC CATEGORY: NEGATIVE FOR MALIGNANCY. SPECIMEN: Peritoneal fluid GROSS DESCRIPTION: # of Blocks: 1 # of Monolayers: 1 Volume (ml) 50 Color: fresh clear yellow Electronically Signed by Pathology Report verified by [facility] Screened by: TASHI VA Electronically signed by LAURA COLON Sign-Out Date: 02/23/2024 10:21 Performing Lab: [facility], [address] [place] [address] Pathology Dept Disclaimer If ancillary studies were utilized, the following Laboratory Developed Test (LDT) disclaimer will apply: Under CLIA requirements, [facility] is qualified to perform high complexity testing. For all ancillary stains, positive and negative controls stain appropriately. Performance characteristics of immunohistochemical and chromogenic in-situ hybridization tests have been determined by [facility]. These tests are used for clinical purposes, They should not be regarded as investigational or for research. Normal [facility] .Auto Diffon 02-22-2024 Basophil, Absolute 0.0 10 3/mcL Normal 0.0-0.3 [facility] Comment on above: Performed By: #### C BC, ANEU, GFR, ADIFF, BMP ####[address] [address] Basophils/100 WBC (Bld) 0.7 % Normal 0.0-2.5 [facility] Comment on above: Performed By: #### C BC, ANEU, GFR, ADIFF, BMP ####[address] [address] Eosinophil, Absolute 0.1 10 3/mcL Normal 0.0-0.7 [facility] Comment on above: Performed By: #### C BC, ANEU, GFR, ADIFF, BMP ####[address] [address] Eosinophils/100 WBC (Bld) 1.5 % Normal 0.0-6.0 [facility] Comment on above: Performed By: #### C BC, ANEU, GFR, ADIFF, BMP ####[address] [address] Lymphocyte, Absolute 1.6 10 3/mcL Normal 0.9-4.3 [facility] Comment on above: Performed By: #### C BC, ANEU, GFR, ADIFF, BMP ####[address] [address] Lymphocytes/100 WBC (Bld) 22.8 % Normal 20.0-40.0 [facility] Comment on above: Performed By: #### C BC, ANEU, GFR, ADIFF, BMP ####[address] [address] Monocyte, Absolute 0.7 10 3/mcL Normal 0.1-1.4 [facility] Comment on above: Performed By: #### C BC, ANEU, GFR, ADIFF, BMP ####[address] [address] Monocytes/100 WBC (Bld) 9.7 % Normal 2.0-13.0 [facility] Comment on above: Performed By: #### C BC, ANEU, GFR, ADIFF, BMP ####[address] [address] Neutrophils/100 WBC (Bld) 65.3 % Normal 50.0-75.0 [facility] Comment on above: Performed By: #### C BC, ANEU, GFR, ADIFF, BMP ####[address] [address] .GFRon 02-22-2024 GFR >60 [facility] Comment on above: Result Comment: GFR [...] #### C BC, ANEU, GFR, ADIFF, BMP ####[address] [address] GFR Non- >60 [facility] Comment on above: Result Comment: GFR [...] #### C BC, ANEU, GFR, ADIFF, BMP ####[address] [address] .NEUABSon 02-22-2024 Neutrophil, Absolute 4.6 10 3/mcL Normal 2.3-8.1 [facility] Comment on above: Performed By: #### C BC, ANEU, GFR, ADIFF, BMP ####[address] [address] ALBBFon 02-22-2024 Albumin Body Fluid Spec Type Peritoneal fl [facility] Comment on above: Result Comment: The reference interval(s) and other method performance specifications have not been established for this body fluid. The test result must be integrated into the clinical content for interpretation. Performed By: #### U A #### [address] [address] Albumin BF <0.5 Normal [facility] Comment on above: Performed By: #### U A #### [address] [address] BFCTon 02-22-2024 Body Fluid Source Peritoneal fl Normal [facility] Comment on above: Result Comment: Refe rence ranges have not been established for this body fluid. The test results must be integrated into the clinical context for interpretation. Performed By: #### U A #### [place] [address] Total Nucleated Cells 351 /mm3 [facility] Comment on above: Performed By: #### U A #### [address] [address] BMPon 02-22-2024 BUN/Creatinine Ratio 10.5 ratio Normal 10.0-22.0 [facility] Comment on above: Performed By: #### C BC, ANEU, GFR, ADIFF, BMP ####[address] [address] Calcium [Mass/Vol] 8.2 mg/dL Low 8.7-10.4 [facility] Comment on above: Performed By: #### C BC, ANEU, GFR, ADIFF, BMP ####[address] [address] Chloride [Moles/Vol] 100 mmol/L Normal 98-110 [facility] Comment on above: Performed By: #### C BC, ANEU, GFR, ADIFF, BMP ####[address] [address] CO2 [Moles/Vol] 32 mmol/L Normal 22-32 [facility] Comment on above: Performed By: #### C BC, ANEU, GFR, ADIFF, BMP ####[address] [address] Creatinine [Mass/Vol] 0.76 mg/dL Normal 0.60-1.40 [facility] Comment on above: Result Comment: Test ing performed on Sonian analyzer using enzymatic creatinine methodology. Performed By: #### C BC, ANEU, GFR, ADIFF, BMP ####[place] [address] Electrolyte Balance 3.0 mEq/L Low 4.0-15.0 [facility] Comment on above: Performed By: #### C BC, ANEU, GFR, ADIFF, BMP ####[place] [address] Glucose [Mass/Vol] 83 mg/dL Normal 70-110 [facility] Comment on above: Performed By: #### C BC, ANEU, GFR, ADIFF, BMP ####[place] [address] Potassium [Moles/Vol] 4.4 mmol/L Normal 3.5-5.0 [facility] Comment on above: Performed By: #### C BC, ANEU, GFR, ADIFF, BMP ####[place] [address] Sodium [Moles/Vol] 135 mmol/L Low 136-145 [facility] Comment on above: Performed By: #### C BC, ANEU, GFR, ADIFF, BMP ####[place] [address] Urea nitrogen [Mass/Vol] 8.0 mg/dL Normal 8.0-22.0 [facility] Comment on above: Performed By: #### C BC, ANEU, GFR, ADIFF, BMP ####[address] [address] CBCon 02-22-2024 Erythrocyte distribution width (RBC) [Ratio] 13.9 % Normal 11.5-15.5 [facility] Comment on above: Performed By: #### C BC, ANEU, GFR, ADIFF, BMP ####[place] [address] Hematocrit (Bld) [Volume fraction] 34.4 % Low 40.0-52.0 [facility] Comment on above: Performed By: #### C BC, ANEU, GFR, ADIFF, BMP ####[place] [address] Hgb 11.8 G/dL Low 13.0-17.5 [facility] Comment on above: Performed By: #### C BC, ANEU, GFR, ADIFF, BMP ####[place] [address] MCH (RBC) [Entitic mass] 37.5 pg High 27.0-33.0 [facility] Comment on above: Performed By: #### C BC, ANEU, GFR, ADIFF, BMP ####[place] [address] MCHC 34.4 G/dL Normal 32.0-36.0 [facility] Comment on above: Performed By: #### C BC, ANEU, GFR, ADIFF, BMP ####[place] [address] MCV (RBC) [Entitic vol] 109.1 fL High 81.0-100.0 [facility] Comment on above: Performed By: #### C BC, ANEU, GFR, ADIFF, BMP ####[place] [address] Platelet 316 10 3/mcL Normal 150-450 [facility] Comment on above: Performed By: #### C BC, ANEU, GFR, ADIFF, BMP ####[place] [address] Platelet mean volume (Bld) [Entitic vol] 8.1 fL Normal 6.4-10.5 [facility] Comment on above: Performed By: #### C BC, ANEU, GFR, ADIFF, BMP ####[place] [address] RBC 3.15 10 6/mcL Low 4.50-6.00 [facility] Comment on above: Performed By: #### C BC, ANEU, GFR, ADIFF, BMP ####[place] [address] WBC 7.0 10 3/mcL Normal 4.5-10.8 [facility] Comment on above: Performed By: #### C BC, ANEU, GFR, ADIFF, BMP ####[place] [address] CERULon 02-22-2024 Ceruloplasmin 12.0 mg/dL Low 22.0-58.0 [facility] Comment on above: Performed By: #### E NDO, CARLOS, ADIFF, SMUSC, ANAIFS, CERUL, BMP, CBC, FERR, HEPAC, GFR, IGG, HBSAB, ANEU, AHAVG, PRO, MG, AFPS, FES, [id number] ####[place] [address] GLUBFon 02-22-2024 Glucose Body Fluid Spec Type Peritoneal fl Normal [facility] Comment on above: Result Comment: The reference interval(s) and other method performance specifications have not been established for this body fluid. The test result must be integrated into the clinical content for interpretation. Performed By: #### U A #### [place] [address] Glucose BF 138.0 mg/dL Normal [facility] Comment on above: Performed By: #### U A #### [place] [address] LABORATORYOrdered By: SYSTEM SYSTEM on 02-22-2024 Albumin [...] above: Interpretive Data: T esting performed on Sonian analyzer using enzymatic creatinine methodology. Electrolyte Balance [...] (S/P/Bld) [Vol rate/Area] ml/min/1.73sqm Invalid Interpretation Code [employer] Chemistry S Comment on above: Interpretive Data: [...] (S/P/Bld) [Vol rate/Area] ml/min/1.73sqm Invalid Interpretation Code [employer] Chemistry S Comment on above: Interpretive Data: [...] 135 mmol/L Low 136 - 145 mEq/L ADM SS Urea nitrogen [Mass/Vol] 8.0 mg/dL Normal 8.0 - 22.0 mg/dL ADM SS Urea nitrogen/Creatinine [Mass ratio] 10.5 ratio Normal 10.0 - 22.0 ratio ADM SS WBC (Bld) [#/Vol] 7.0 103/mcL Normal 4.5 - 10.8 10^3/mcL Workflow SS LABORATORYOrdered By: Kailyn Hickey on 02-22-2024 Albumin Body Fluid Spec Type Peritoneal fl 28 (02/22/24 12:06 PM) Normal Chemistry S Comment on above: Interpretive Data: T he reference interval(s) and other method performance specifications have not been established for this body fluid. The test result must be integrated into the clinical content for interpretation. Glucose Body Fluid Spec Type Peritoneal fl 30 (02/22/24 12:06 PM) Normal Chemistry S Comment on above: Interpretive Data: T he reference interval(s) and other method performance specifications have not been established for this body fluid. The test result must be integrated into the clinical content for interpretation. Nucleated RBC/100 WBC (Bld) [Ratio] 351 % Invalid Interpretation Code Manual Heme SS Protein BF Type Peritoneal fl 26 (02/22/24 12:06 PM) Normal Chemistry S Comment on above: Interpretive Data: T he reference interval(s) and other method performance specifications have not been established for this body fluid. The test result must be integrated into the clinical content for interpretation. Specimen source Nom (Body fld) Peritoneal fl 19 (02/22/24 12:06 PM) Normal Manual Heme SS Comment on above: Interpretive Data: R eference ranges have not been established for this body fluid. The test results must be integrated into the clinical context for interpretation. MITOon 02-22-2024 Mitochondrial Ab Neg 20 Normal Neg 20 [facility] Comment on above: Result Comment: Carlos chondrial Ab Screen and Titer methodology is an immunofluorescent technique utilizing MSK Substrate. Performed By: #### E NDO, CARLOS, ADIFF, SMUSC, ANAIFS, CERUL, BMP, CBC, FERR, HEPAC, GFR, IGG, HBSAB, ANEU, AHAVG, PRO, MG, AFPS, FES, [id number] ####[place] [address] No Panel Informationon 02-21 Culture Body Fluid Culture has been rec eived in lab and is no growth to date. Routine cultures are held for 5 days. [facility] Work Phone: GS 1+ Mononuclear cells No organisms seen. [facility] Work Phone: PROBFon 02-22-2024 Protein BF Type Peritoneal fl Normal [facility] Comment on above: Result Comment: The reference interval(s) and other method performance specifications have not been established for this body fluid. The test result must be integrated into the clinical content for interpretation. Performed By: #### U A #### [address] [address] Protein BF <2.0 Normal [facility] Comment on above: Performed By: #### U A #### [address] [address] SMUSCon 02-22-2024 Smooth Muscle Ab Neg 20 Normal Neg 20 [facility] Comment on above: Result Comment: Smoo th Muscle Ab Screen and Titer methodology is an immunofluorescent technique utilizing MSK Substrate. Performed By: #### U A #### [address] [address] [place] PARACENTESISon 02-22-2024 [place] PARACENT[place]IS ORIGINAL EXAMINATION: [...] procedure was performed by Domonique Valera, Physician Yard Supervisor [employer]. I concur with the contents of the report. Interpreted by: Adolph Morales MD Preliminary Report By: Domonique Valera PA-C Electronically signed By Adolph Morales MD Dictated Date: 02/22/2024 4:13:38 PM Prelim Date: 02/22/2024 4:14:10 PM Sign Date: 02/22/2024 4:23:00 PM Ordering Provider: JAYJAY Bautista [facility] .Auto Diffon 02-21-2024 Basophil, Absolute 0.1 10 3/mcL Normal 0.0-0.3 [facility] Comment on above: Performed By: #### E NDO, CARLOS, ADIFF, SMUSC, ANAIFS, CERUL, BMP, CBC, FERR, HEPAC, GFR, IGG, HBSAB, ANEU, AHAVG, PRO, MG, AFPS, FES, [id number] ####[address] [address] Basophils/100 WBC (Bld) 0.9 % Normal 0.0-2.5 [facility] Comment on above: Performed By: #### E NDO, CARLOS, ADIFF, SMUSC, ANAIFS, CERUL, BMP, CBC, FERR, HEPAC, GFR, IGG, HBSAB, ANEU, AHAVG, PRO, MG, AFPS, FES, [id number] ####[address] [address] Eosinophil, Absolute 0.1 10 3/mcL Normal 0.0-0.7 [facility] Comment on above: Performed By: #### E NDO, CARLOS, ADIFF, SMUSC, ANAIFS, CERUL, BMP, CBC, FERR, HEPAC, GFR, IGG, HBSAB, ANEU, AHAVG, PRO, MG, AFPS, FES, [id number] ####[address] [address] Eosinophils/100 WBC (Bld) 1.8 % Normal 0.0-6.0 [facility] Comment on above: Performed By: #### E NDO, CARLOS, ADIFF, SMUSC, ANAIFS, CERUL, BMP, CBC, FERR, HEPAC, GFR, IGG, HBSAB, ANEU, AHAVG, PRO, MG, AFPS, FES, [id number] ####[address] [address] Lymphocyte, Absolute 1.2 10 3/mcL Normal 0.9-4.3 [facility] Comment on above: Performed By: #### E NDO, CARLOS, ADIFF, SMUSC, ANAIFS, CERUL, BMP, CBC, FERR, HEPAC, GFR, IGG, HBSAB, ANEU, AHAVG, PRO, MG, AFPS, FES, [id number] ####[address] [address] Lymphocytes/100 WBC (Bld) 16.2 % Low 20.0-40.0 [facility] Comment on above: Performed By: #### E NDO, CARLOS, ADIFF, SMUSC, ANAIFS, CERUL, BMP, CBC, FERR, HEPAC, GFR, IGG, HBSAB, ANEU, AHAVG, PRO, MG, AFPS, FES, [id number] ####[address] [address] Monocyte, Absolute 0.6 10 3/mcL Normal 0.1-1.4 [facility] Comment on above: Performed By: #### E NDO, CARLOS, ADIFF, SMUSC, ANAIFS, CERUL, BMP, CBC, FERR, HEPAC, GFR, IGG, HBSAB, ANEU, AHAVG, PRO, MG, AFPS, FES, [id number] ####[address] [address] Monocytes/100 WBC (Bld) 8.7 % Normal 2.0-13.0 [facility] Comment on above: Performed By: #### E NDO, CARLOS, ADIFF, SMUSC, ANAIFS, CERUL, BMP, CBC, FERR, HEPAC, GFR, IGG, HBSAB, ANEU, AHAVG, PRO, MG, AFPS, FES, [id number] ####[address] [address] Neutrophils/100 WBC (Bld) 72.4 % Normal 50.0-75.0 [facility] Comment on above: Performed By: #### E NDO, CARLOS, ADIFF, SMUSC, ANAIFS, CERUL, BMP, CBC, FERR, HEPAC, GFR, IGG, HBSAB, ANEU, AHAVG, PRO, MG, AFPS, FES, [id number] ####[address] [address] .GFRon 02-21-2024 GFR Non- >60 Normal [facility] Comment on above: Result Comment: [...] HBSAB, ANEU, AHAVG, PRO, MG, AFPS, FES, [id number] ####[address] [address] GFR >60 Normal [facility] Comment on above: Result Comment: [...] HBSAB, ANEU, AHAVG, PRO, MG, AFPS, FES, [id number] ####[place] [id number] .NEUABSon 02-21-2024 Neutrophil, Absolute 5.3 10 3/mcL Normal 2.3-8.1 [facility] Comment on above: Performed By: #### E NDO, CARLOS, ADIFF, SMUSC, ANAIFS, CERUL, BMP, CBC, FERR, HEPAC, GFR, IGG, HBSAB, ANEU, AHAVG, PRO, MG, AFPS, FES, [id number] ####[place] [address] AFPSon 02-21-2024 AFP, Tumor Marker 3.1 ng/mL Normal 0.0-8.5 [facility] Comment on above: Result Comment: Test ing performed on the [employer] analyzer using direct chemiluminesent technology. Patient results determined by assays using different manufacturers for methods may not be comparable. Performed By: #### E NDO, CARLOS, ADIFF, SMUSC, ANAIFS, CERUL, BMP, CBC, FERR, HEPAC, GFR, IGG, HBSAB, ANEU, AHAVG, PRO, MG, AFPS, FES, [id number] ####[place] [address] BMPon 02-21-2024 BUN/Creatinine Ratio 9.1 ratio Low 10.0-22.0 [facility] Comment on above: Performed By: #### E NDO, CARLOS, ADIFF, SMUSC, ANAIFS, CERUL, BMP, CBC, FERR, HEPAC, GFR, IGG, HBSAB, ANEU, AHAVG, PRO, MG, AFPS, FES, [id number] ####[place] [address] Calcium [Mass/Vol] 7.7 mg/dL Low 8.7-10.4 [facility] Comment on above: Performed By: #### E NDO, CARLOS, ADIFF, SMUSC, ANAIFS, CERUL, BMP, CBC, FERR, HEPAC, GFR, IGG, HBSAB, ANEU, AHAVG, PRO, MG, AFPS, FES, [id number] ####[address] [address] Chloride [Moles/Vol] 103 mmol/L Normal 98-110 [facility] Comment on above: Performed By: #### E NDO, CARLOS, ADIFF, SMUSC, ANAIFS, CERUL, BMP, CBC, FERR, HEPAC, GFR, IGG, HBSAB, ANEU, AHAVG, PRO, MG, AFPS, FES, [id number] ####[address] [address] CO2 [Moles/Vol] 31 mmol/L Normal 22-32 [facility] Comment on above: Performed By: #### E NDO, CARLOS, ADIFF, SMUSC, ANAIFS, CERUL, BMP, CBC, FERR, HEPAC, GFR, IGG, HBSAB, ANEU, AHAVG, PRO, MG, AFPS, FES, [id number] ####[address] [address] Creatinine [Mass/Vol] 0.66 mg/dL Normal 0.60-1.40 [facility] Comment on above: Result Comment: Test ing performed on [employer] analyzer using enzymatic creatinine methodology. Performed By: #### E NDO, CARLOS, ADIFF, SMUSC, ANAIFS, CERUL, BMP, CBC, FERR, HEPAC, GFR, IGG, HBSAB, ANEU, AHAVG, PRO, MG, AFPS, FES, [id number] ####[address] [address] Electrolyte Balance -1.0 mEq/L Low 4.0-15.0 [facility] Comment on above: Performed By: #### E NDO, CARLOS, ADIFF, SMUSC, ANAIFS, CERUL, BMP, CBC, FERR, HEPAC, GFR, IGG, HBSAB, ANEU, AHAVG, PRO, MG, AFPS, FES, [id number] ####[address] [address] Glucose [Mass/Vol] 84 mg/dL Normal 70-110 [facility] Comment on above: Performed By: #### E NDO, CARLOS, ADIFF, SMUSC, ANAIFS, CERUL, BMP, CBC, FERR, HEPAC, GFR, IGG, HBSAB, ANEU, AHAVG, PRO, MG, AFPS, FES, [id number] ####[address] [address] Potassium [Moles/Vol] 3.7 mmol/L Normal 3.5-5.0 [facility] Comment on above: Performed By: #### E NDO, CARLOS, ADIFF, SMUSC, ANAIFS, CERUL, BMP, CBC, FERR, HEPAC, GFR, IGG, HBSAB, ANEU, AHAVG, PRO, MG, AFPS, FES, [id number] ####[address] [address] Sodium [Moles/Vol] 133 mmol/L Low 136-145 [facility] Comment on above: Performed By: #### E NDO, CARLOS, ADIFF, SMUSC, ANAIFS, CERUL, BMP, CBC, FERR, HEPAC, GFR, IGG, HBSAB, ANEU, AHAVG, PRO, MG, AFPS, FES, [id number] ####[address] [address] Urea nitrogen [Mass/Vol] 6.0 mg/dL Low 8.0-22.0 [facility] Comment on above: Performed By: #### E NDO, CARLOS, ADIFF, SMUSC, ANAIFS, CERUL, BMP, CBC, FERR, HEPAC, GFR, IGG, HBSAB, ANEU, AHAVG, PRO, MG, AFPS, FES, [id number] ####[address] [address] CBCon 02-21-2024 Erythrocyte distribution width (RBC) [Ratio] 13.7 % Normal 11.5-15.5 [facility] Comment on above: Performed By: #### E NDO, CARLOS, ADIFF, SMUSC, ANAIFS, CERUL, BMP, CBC, FERR, HEPAC, GFR, IGG, HBSAB, ANEU, AHAVG, PRO, MG, AFPS, FES, [id number] ####[place] [address] Hematocrit (Bld) [Volume fraction] 34.0 % Low 40.0-52.0 [facility] Comment on above: Performed By: #### E NDO, CARLOS, ADIFF, SMUSC, ANAIFS, CERUL, BMP, CBC, FERR, HEPAC, GFR, IGG, HBSAB, ANEU, AHAVG, PRO, MG, AFPS, FES, [id number] ####[place] [address] Hgb 11.5 G/dL Low 13.0-17.5 [facility] Comment on above: Performed By: #### E NDO, CARLOS, ADIFF, SMUSC, ANAIFS, CERUL, BMP, CBC, FERR, HEPAC, GFR, IGG, HBSAB, ANEU, AHAVG, PRO, MG, AFPS, FES, [id number] ####[place] [address] MCH (RBC) [Entitic mass] 37.1 pg High 27.0-33.0 [facility] Comment on above: Performed By: #### E NDO, CARLOS, ADIFF, SMUSC, ANAIFS, CERUL, BMP, CBC, FERR, HEPAC, GFR, IGG, HBSAB, ANEU, AHAVG, PRO, MG, AFPS, FES, [id number] ####[place] [address] MCHC 33.9 G/dL Normal 32.0-36.0 [facility] Comment on above: Performed By: #### E NDO, CARLOS, ADIFF, SMUSC, ANAIFS, CERUL, BMP, CBC, FERR, HEPAC, GFR, IGG, HBSAB, ANEU, AHAVG, PRO, MG, AFPS, FES, [id number] ####[place] [address] MCV (RBC) [Entitic vol] 109.4 fL High 81.0-100.0 [facility] Comment on above: Performed By: #### E NDO, CARLOS, ADIFF, SMUSC, ANAIFS, CERUL, BMP, CBC, FERR, HEPAC, GFR, IGG, HBSAB, ANEU, AHAVG, PRO, MG, AFPS, FES, [id number] ####[place] [address] Platelet 283 10 3/mcL Normal 150-450 [facility] Comment on above: Performed By: #### E NDO, CARLOS, ADIFF, SMUSC, ANAIFS, CERUL, BMP, CBC, FERR, HEPAC, GFR, IGG, HBSAB, ANEU, AHAVG, PRO, MG, AFPS, FES, [id number] ####[place] [address] Platelet mean volume (Bld) [Entitic vol] 7.9 fL Normal 6.4-10.5 [facility] Comment on above: Performed By: #### E NDO, CARLOS, ADIFF, SMUSC, ANAIFS, CERUL, BMP, CBC, FERR, HEPAC, GFR, IGG, HBSAB, ANEU, AHAVG, PRO, MG, AFPS, FES, [id number] ####[place] [address] RBC 3.11 10 6/mcL Low 4.50-6.00 [facility] Comment on above: Performed By: #### E NDO, CARLOS, ADIFF, SMUSC, ANAIFS, CERUL, BMP, CBC, FERR, HEPAC, GFR, IGG, HBSAB, ANEU, AHAVG, PRO, MG, AFPS, FES, [id number] ####[place] [address] WBC 7.3 10 3/mcL Normal 4.5-10.8 [facility] Comment on above: Performed By: #### E NDO, CARLOS, ADIFF, SMUSC, ANAIFS, CERUL, BMP, CBC, FERR, HEPAC, GFR, IGG, HBSAB, ANEU, AHAVG, PRO, MG, AFPS, FES, [id number] ####[place] [id number] Christina 02-21-2024 Ferritin [Mass/Vol] 275.4 ng/mL Normal 26.0-388.0 [facility] Comment on above: Performed By: #### E NDO, CARLOS, ADIFF, SMUSC, ANAIFS, CERUL, BMP, CBC, FERR, HEPAC, GFR, IGG, HBSAB, ANEU, AHAVG, PRO, MG, AFPS, FES, [id number] ####[place] [id number] FESon 02-21-2024 Iron [Mass/Vol] 95 ug/dL Normal 65-175 [facility] Comment on above: Performed By: #### E NDO, CARLOS, ADIFF, SMUSC, ANAIFS, CERUL, BMP, CBC, FERR, HEPAC, GFR, IGG, HBSAB, ANEU, AHAVG, PRO, MG, AFPS, FES, [id number] ####[place] [address] Iron Sat 68 % Normal [facility] Comment on above: Performed By: #### E NDO, CARLOS, ADIFF, SMUSC, ANAIFS, CERUL, BMP, CBC, FERR, HEPAC, GFR, IGG, HBSAB, ANEU, AHAVG, PRO, MG, AFPS, FES, 588974 ####[place] [id number] TIBC 139 mcg/dL Low 250-500 [facility] Comment on above: Performed By: #### E NDO, CARLOS, ADIFF, SMUSC, ANAIFS, CERUL, BMP, CBC, FERR, HEPAC, GFR, IGG, HBSAB, ANEU, AHAVG, PRO, MG, AFPS, FES, [id number] ####[place] [address] HBSABon 02-21-2024 Hep B Surf Ab <3.1 Low >=10.0 [facility] Comment on above: Result Comment: [...] HBSAB, ANEU, AHAVG, PRO, MG, AFPS, FES, [id number] ####[place] [address] HEPACon 02-21-2024 Hep A IgM Ab Non-Reactive Normal [facility] Comment on above: Performed By: #### E NDO, CARLOS, ADIFF, SMUSC, ANAIFS, CERUL, BMP, CBC, FERR, HEPAC, GFR, IGG, HBSAB, ANEU, AHAVG, PRO, MG, AFPS, FES, [id number] ####[place] [address] Hep A IgM Ab Int [facility]IN Comment on above: Result Comment: No s erological evidence of a current Hepatitis A infection. See Interp Performed By: #### E NDO, CARLOS, ADIFF, SMUSC, ANAIFS, CERUL, BMP, CBC, FERR, HEPAC, GFR, IGG, HBSAB, ANEU, AHAVG, PRO, MG, AFPS, FES, [id number] ####[place] [address] Hep B Core IgM Ab Non-Reactive Normal Non-Reactive [facility] Comment on above: Performed By: #### E NDO, CARLOS, ADIFF, SMUSC, ANAIFS, CERUL, BMP, CBC, FERR, HEPAC, GFR, IGG, HBSAB, ANEU, AHAVG, PRO, MG, AFPS, FES, [id number] ####[place] [address] Hep B Core IgM Ab Int [facility] MAIN Comment on above: Result Comment: Samp les with a value < 0.80 Index are considered nonreactive (negative) for IgM antibodies to hepatitis B core antigen. See Interp Performed By: #### E NDO, CARLOS, ADIFF, SMUSC, ANAIFS, CERUL, BMP, CBC, FERR, HEPAC, GFR, IGG, HBSAB, ANEU, AHAVG, PRO, MG, AFPS, FES, [id number] ####[address] [address] Hep B Surf Ag Non-Reactive Normal Non-Reactive [facility] Comment on above: Performed By: #### E NDO, CARLOS, ADIFF, SMUSC, ANAIFS, CERUL, BMP, CBC, FERR, HEPAC, GFR, IGG, HBSAB, ANEU, AHAVG, PRO, MG, AFPS, FES, [id number] ####[place] [address] Hep C Ab Non-Reactive Normal Non-Reactive [facility] Comment on above: Performed By: #### E NDO, CARLOS, ADIFF, SMUSC, ANAIFS, CERUL, BMP, CBC, FERR, HEPAC, GFR, IGG, HBSAB, ANEU, AHAVG, PRO, MG, AFPS, FES, [id number] ####[place] [address] Hep C Ab Int [facility] MAIN Comment on above: Result Comment: Nonr [...] HBSAB, ANEU, AHAVG, PRO, MG, AFPS, FES, [id number] ####[place] [address] IGGon 02-21-2024 IgG [Mass/Vol] 606 mg/dL Low 650-1600 [facility] Comment on above: Result Comment: No te - New Reference Range in effect 19 Performed By: #### E NDO, CARLOS, ADIFF, SMUSC, ANAIFS, CERUL, BMP, CBC, FERR, HEPAC, GFR, IGG, HBSAB, ANEU, AHAVG, PRO, MG, AFPS, FES, [id number] ####[place] [address] LABORATORYOrdered By: SYSTEM SYSTEM on 02-21-2024 AFP [Mass/Vol] 3.1 ng/mL Normal 0.0 - 8.5 ng/mL AH ADM SS Comment on above: Interpretive Data: T esting performed on the [employer] IM analyzer using direct chemiluminesent technology. Patient results determined by assays using different manufacturers for methods may not be comparable. Basophils (Bld) [#/Vol] 0.1 103/mcL Normal 0.0 - 0.3 10^3/mcL AH Workflow SS Basophils/100 WBC (Bld) 0.9 % Normal 0.0 - 2.5 % AH Workflow SS Calcium [Mass/Vol] 7.7 mg/dL Low 8.7 - 10. 4 mg/dL AH ADM SS Ceruloplasmin [Mass/Vol] 12.0 mg/dL Low 22.0 - 58.0 mg/dL AH ADM SS Chloride [Moles/Vol] 103 mmol/L Normal 98 - 110 mEq/L AH ADM SS CO2 [Moles/Vol] 31 mmol/L Normal 22 - 32 mEq/L AH ADM SS Creatinine [Mass/Vol] 0.66 mg/dL Normal 0.60 - 1.40 mg/dL AH ADM SS Comment on above: Interpretive Data: T esting performed on [employer] analyzer using enzymatic creatinine methodology. Electrolyte Balance -1.0 mEq/L Low 4.0 - 15 .0 mEq/L AH ADM SS Eosinophils (Bld) [#/Vol] 0.1 103/mcL Normal 0.0 - 0.7 10^3/mcL AH Workflow SS Eosinophils/100 WBC (Bld) 1.8 % Normal 0.0 - 6.0 % AH Workflow SS Erythrocyte distribution width (RBC) [Ratio] 13.7 % Normal 11.5 - 15.5 % AH Workflow SS Ferritin [Mass/Vol] 275.4 ng/mL Normal 26.0 - 3 88.0 ng/mL AH ADM SS GFR/1.73 sq M.predicted among blacks MDRD (S/P/Bld) [Vol rate/Area] ml/min/1.73sqm Invalid Interpretation Code [employer] Chemistry S Comment on above: Interpretive Data: [...] (S/P/Bld) [Vol rate/Area] ml/min/1.73sqm Invalid Interpretation Code [employer] Chemistry S Comment on above: Interpretive Data: [...] mg/dL Low 650 - 1600 mg/dL ADM SS Comment on above: Interpretive [...] s Normal 9.0 - 14.4 seconds [employer] SS Comment on above: Interpretive Data: E ffective 12/07/07, Protime results may be affected by some antibiotics (i.e. Ciprofloxacin, Azithromycin, Bactrim) which may potentiate the action of oral anticoagulants, with further increases in Protime/INR. PT International Ratio 1.1 ratio Invalid Interpretation Code [employer] Comment on above: Interpretive Data: Laureen lata [employer] (CHEST, 1991, [id number]) [...] 02-21-2024 Magnesium [Mass/Vol] 2.0 mg/dL Normal 1.6-2.4 [facility] Comment on above: Performed By: #### E NDO, CARLOS, ADIFF, SMUSC, ANAIFS, CERUL, BMP, CBC, FERR, HEPAC, GFR, IGG, HBSAB, ANEU, AHAVG, PRO, MG, AFPS, FES, [id number] ####[place] [id number] PROon 02-21-2024 INR Coag (PPP) [Relative time] 1.1 {INR} Normal [facility] Comment on above: Result Comment: [employer] (CHEST, 1992, [id number]) recommended therapeutic range for oral anticoagulant therapy is: LOW RISK: Prophylaxis of venous thrombosis INR: 2.0-3.0 Treatment of pulmonary embolism 2.0-3.0 Prevention of systemic embolism 2.0-3.0 HIGH RISK: Mechanical prosthetic valves 2.5-3.5 Performed By: #### E NDO, CARLOS, ADIFF, SMUSC, ANAIFS, CERUL, BMP, CBC, FERR, HEPAC, GFR, IGG, HBSAB, ANEU, AHAVG, PRO, MG, AFPS, FES, [id number] ####[place] [id number] [address] [place] [id number] PT Coag (PPP) [Time] 12.3 s Normal 9.0-14.4 [facility] Comment on above: Result Comment: Effe ctive 12/07/07, Protime results may be affected by some antibiotics (i.e. Ciprofloxacin, Azithromycin, Bactrim) which may potentiate the action of oral anticoagulants, with further increases in Protime/INR. Performed By: #### E NDO, CARLOS, ADIFF, SMUSC, ANAIFS, CERUL, BMP, CBC, FERR, HEPAC, GFR, IGG, HBSAB, ANEU, AHAVG, PRO, MG, AFPS, FES, [id number] ####[address] [address] [place] DOPPLER ABDOMENon 024 US DOPPLER ABDOMEN [...] 12:04:14 AM Ordering Provider: AUBRIE [place] Normal [facility] MA[facility] .Auto Diffon 02-20-2024 Basophil, Absolute 0.1 10 3/mcL Normal 0.0-0.3 [facility] Comment on above: Performed By: #### M ORPH, BMP, CBC, MG, ANEU, ADIFF, GFR ####[address] [address] Basophils/100 WBC (Bld) 0.8 % Normal 0.0-2.5 [facility] Comment on above: Performed By: #### M ORPH, BMP, CBC, MG, ANEU, ADIFF, GFR ####[address] [address] Eosinophil, Absolute 0.1 10 3/mcL Normal 0.0-0.7 [facility] Comment on above: Performed By: #### M ORPH, BMP, CBC, MG, ANEU, ADIFF, GFR ####[address] [address] Eosinophils/100 WBC (Bld) 1.2 % Normal 0.0-6.0 [facility] Comment on above: Performed By: #### M ORPH, BMP, CBC, MG, ANEU, ADIFF, GFR ####[address] [address] Lymphocyte, Absolute 1.1 10 3/mcL Normal 0.9-4.3 [facility] Comment on above: Performed By: #### M ORPH, BMP, CBC, MG, ANEU, ADIFF, GFR ####[address] [address] Lymphocytes/100 WBC (Bld) 14.0 % Low 20.0-40.0 [facility] Comment on above: Performed By: #### M ORPH, BMP, CBC, MG, ANEU, ADIFF, GFR ####[address] [address] Monocyte, Absolute 0.5 10 3/mcL Normal 0.1-1.4 [facility] MAIN Comment on above: Performed By: #### M ORPH, BMP, CBC, MG, ANEU, ADIFF, GFR ####[address] [address] Monocytes/100 WBC (Bld) 7.1 % Normal 2.0-13.0 [facility] Comment on above: Performed By: #### M ORPH, BMP, CBC, MG, ANEU, ADIFF, GFR ####[facility] [place] [address] Neutrophils/100 WBC (Bld) 76.9 % High 50.0-75.0 [facility] Comment on above: Performed By: #### M ORPH, BMP, CBC, MG, ANEU, ADIFF, GFR ####[place] [id number] [place] [address] .GFRon 02-20-2024 GFR >60 [facility] MAIN Comment on above: Result Comment: GFR [...] ORPH, BMP, CBC, MG, ANEU, ADIFF, GFR ####[place] [id number] [address] [place] [address] GFR Non- >60 [facility] MAIN Comment on above: Result Comment: GFR [...] ORPH, BMP, CBC, MG, ANEU, ADIFF, GFR ####[address] [address] .Morphon 02-20-2024 Anisocytosis Ql (Bld) 1+ Normal [facility] MA[facility] Comment on above: Performed By: #### M ORPH, BMP, CBC, MG, ANEU, ADIFF, GFR ####[place] [address] Macrocytosis 2+ Normal [facility] MAIN Comment on above: Performed By: #### M ORPH, BMP, CBC, MG, ANEU, ADIFF, GFR ####[place] [address] Platelet Estimate Normal Normal [facility] MAIN Comment on above: Performed By: #### M ORPH, BMP, CBC, MG, ANEU, ADIFF, GFR ####[place] [address] .NEUABSon 02-20-2024 Neutrophil, Absolute 5.8 10 3/mcL Normal 2.3-8.1 [facility] Comment on above: Performed By: #### M ORPH, BMP, CBC, MG, ANEU, ADIFF, GFR ####[place] [address] AFPSon 02-20-2024 AFP, Tumor Marker 2.5 ng/mL Normal 0.0-8.5 [facility] MA[facility] Comment on above: Result Comment: Test ing performed on the [employer] IM analyzer using direct chemiluminesent technology. Patient results determined by assays using different manufacturers for methods may not be comparable. Performed By: #### A FPS, FERR, HCV1, HIV, ANAIFS, HBSAG, FES ####[place] [address] BMPon 02-20-2024 BUN/Creatinine Ratio 8.7 ratio Low 10.0-22.0 [facility] Comment on above: Performed By: #### M ORPH, BMP, CBC, MG, ANEU, ADIFF, GFR ####[place] [address] Calcium [Mass/Vol] 7.7 mg/dL Low 8.7-10.4 [facility] MAIN Comment on above: Performed By: #### M ORPH, BMP, CBC, MG, ANEU, ADIFF, GFR ####[address] [address] Chloride [Moles/Vol] 100 mmol/L Normal 98-110 [facility] Comment on above: Performed By: #### M ORPH, BMP, CBC, MG, ANEU, ADIFF, GFR ####[address] [address] CO2 [Moles/Vol] 32 mmol/L Normal 22-32 [facility] Comment on above: Performed By: #### M ORPH, BMP, CBC, MG, ANEU, ADIFF, GFR ####[address] [address] Creatinine [Mass/Vol] 0.69 mg/dL Normal 0.60-1.40 [facility] Comment on above: Result Comment: Test ing performed on Sonian analyzer using enzymatic creatinine methodology. Performed By: #### M ORPH, BMP, CBC, MG, ANEU, ADIFF, GFR ####[place] [address] Electrolyte Balance 4.0 mEq/L Normal 4.0-15.0 [facility] MAIN Comment on above: Performed By: #### M ORPH, BMP, CBC, MG, ANEU, ADIFF, GFR ####[address] [address] Glucose [Mass/Vol] 89 mg/dL Normal 70-110 [facility] MA[facility] Comment on above: Performed By: #### M ORPH, BMP, CBC, MG, ANEU, ADIFF, GFR ####[address] [address] Potassium [Moles/Vol] 3.9 mmol/L Normal 3.5-5.0 [facility] Comment on above: Performed By: #### M ORPH, BMP, CBC, MG, ANEU, ADIFF, GFR ####[address] [address] Sodium [Moles/Vol] 136 mmol/L Normal 136-145 [facility] MA[facility] Comment on above: Performed By: #### M ORPH, BMP, CBC, MG, ANEU, ADIFF, GFR ####[place] [address] Urea nitrogen [Mass/Vol] 6.0 mg/dL Low 8.0-22.0 [facility] Comment on above: Performed By: #### M ORPH, BMP, CBC, MG, ANEU, ADIFF, GFR ####[place] [address] CBCon 02-20-2024 Erythrocyte distribution width (RBC) [Ratio] 13.9 % Normal 11.5-15.5 [facility] Comment on above: Order Comment: cbc q ns called Екатерина at 02/20/2024 09:35:00 EDT-mlm Performed By: #### M ORPH, BMP, CBC, MG, ANEU, ADIFF, GFR ####[place] [address] Hematocrit (Bld) [Volume fraction] 36.7 % Low 40.0-52.0 [facility] Comment on above: Order Comment: cbc q ns called Екатерина at 02/20/2024 09:35:00 EDT-mlm Performed By: #### M ORPH, BMP, CBC, MG, ANEU, ADIFF, GFR ####[place] [address] Hgb 12.5 G/dL Low 13.0-17.5 [facility] Comment on above: Order Comment: cbc q ns called Екатерина at 02/20/2024 09:35:00 EDT-mlm Performed By: #### M ORPH, BMP, CBC, MG, ANEU, ADIFF, GFR ####[place] [address] MCH (RBC) [Entitic mass] 37.5 pg High 27.0-33.0 [facility] Comment on above: Order Comment: cbc q ns called Екатерина at 02/20/2024 09:35:00 EDT-mlm Performed By: #### M ORPH, BMP, CBC, MG, ANEU, ADIFF, GFR ####[place] [address] MCHC 34.0 G/dL Normal 32.0-36.0 [facility] Comment on above: Order Comment: cbc q ns called Екатерина at 02/20/2024 09:35:00 EDT-mlm Performed By: #### M ORPH, BMP, CBC, MG, ANEU, ADIFF, GFR ####[address] [address] MCV (RBC) [Entitic vol] 110.3 fL High 81.0-100.0 [facility] Comment on above: Order Comment: cbc q ns called Екатерина at 02/20/2024 09:35:00 EDT-mlm Performed By: #### M ORPH, BMP, CBC, MG, ANEU, ADIFF, GFR ####[address] [address] Platelet 283 10 3/mcL Normal 150-450 [facility] Comment on above: Order Comment: cbc q ns called Екатерина at 02/20/2024 09:35:00 EDT-mlm Performed By: #### M ORPH, BMP, CBC, MG, ANEU, ADIFF, GFR ####[address] [address] Platelet mean volume (Bld) [Entitic vol] 7.9 fL Normal 6.4-10.5 [facility] Comment on above: Order Comment: cbc q ns called Екатерина at 02/20/2024 09:35:00 EDT-mlm Performed By: #### M ORPH, BMP, CBC, MG, ANEU, ADIFF, GFR ####[address] [address] RBC 3.33 10 6/mcL Low 4.50-6.00 [facility] Comment on above: Order Comment: cbc q ns called Екатерина at 02/20/2024 09:35:00 EDT-mlm Performed By: #### M ORPH, BMP, CBC, MG, ANEU, ADIFF, GFR ####[address] [address] WBC 7.6 10 3/mcL Normal 4.5-10.8 [facility] Comment on above: Order Comment: cbc q ns called Екатерина at 02/20/2024 09:35:00 EDT-mlm Performed By: #### M ORPH, BMP, CBC, MG, ANEU, ADIFF, GFR ####[place] [address] Christina 02-20-2024 Ferritin [Mass/Vol] 242.0 ng/mL Normal 26.0-388.0 [facility] MA[facility] Comment on above: Performed By: #### A FPS, FERR, HCV1, HIV, ANAIFS, HBSAG, FES ####[place] [address] FESon 02-20-2024 Iron [Mass/Vol] 26 ug/dL Low 65-175 [facility] MA[facility] Comment on above: Performed By: #### A FPS, FERR, HCV1, HIV, ANAIFS, HBSAG, FES ####[place] [address] Iron Sat 18 % Normal [facility] MA[facility] Comment on above: Performed By: #### A FPS, FERR, HCV1, HIV, ANAIFS, HBSAG, FES ####[place] [address] TIBC 147 mcg/dL Low 250-500 [facility] MA[facility] Comment on above: Performed By: #### A FPS, FERR, HCV1, HIV, ANAIFS, HBSAG, FES ####[place] [address] HBSAGon 02-20-2024 Hep B Surf Ag Non-Reactive Normal [facility] MAIN Comment on above: Performed By: #### A FPS, FERR, HCV1, HIV, ANAIFS, HBSAG, FES ####[place] [address] HCVon 02-20-2024 Hep C Ab Non-Reactive Normal [facility] MAIN Comment on above: Performed By: #### A FPS, FERR, HCV1, HIV, ANAIFS, HBSAG, FES ####[place] [address] Hep C Ab Int Normal [facility] MA[facility] Comment on above: Result Comment: [...] FPS, FERR, HCV1, HIV, ANAIFS, HBSAG, FES ####[place] [address] HIVon 02-20-2024 HIV 1/2 Ab Non-Reactive Normal Non-Reactive [facility] MA[facility] Comment on above: Result Comment: Spec imen is negative for anti-HIV-1 and anti-HIV-2. Performed By: #### A FPS, FERR, HCV1, HIV, ANAIFS, HBSAG, FES ####[place] [address] IGAon 02-20-2024 IgA [Mass/Vol] 634 mg/dL High 40-350 [facility] MAIN Comment on above: Result Comment: No te - New Reference Range in effect 19 Performed By: #### I GA #### [place] [address] LABORATORYOrdered By: SYSTEM SYSTEM on 02-20-2024 IgA [Mass/Vol] 634 mg/dL High 40 - 350 mg/dL [facility] Comment on above: Interpretive Data: * *Note - New Reference Range in effect 19 AFP [Mass/Vol] 2.5 ng/mL Normal 0.0 - 8.5 ng/mL [facility] Comment on above: Interpretive Data: T esting performed on the [employer] analyzer using direct chemiluminesent technology. Patient results determined by assays using different manufacturers for methods may not be comparable. Ferritin [Mass/Vol] 242.0 ng/mL Normal 26.0 - 3 88.0 ng/mL [facility] Iron [Mass/Vol] 26 ug/dL Low 65 - 175 mcg/dL [facility] Iron binding capacity [Mass/Vol] 147 mcg/dL Low 250 - 500 mcg/dL [facility] Iron saturation [Mass fraction] 18 % Invalid Interpretation Code [facility] Anisocytosis Ql (Bld) 1+ *NA* (02/20/24 10:27 AM) Invalid Interpretation Code AH Workflow SS Basophils (Bld) [#/Vol] 0.1 103/mcL Normal 0.0 - 0.3 10^3/mcL AH Workflow SS Basophils/100 WBC (Bld) 0.8 % [...] 10:27 AM) Invalid Interpretation Code Workflow SS MCH (RBC) [Entitic mass] 37.5 [...] Normal 150 - 450 10^3/mcL Workflow SS Platelets LM Ql (Bld) Normal *NA* (02/20/24 10:27 AM) Invalid Interpretation Code Workflow SS RBC (Bld) [#/Vol] 3.33 106/mcL Low 4.50 - 6.0 0 10^6/mcL AH Workflow SS WBC (Bld) [#/Vol] 7.6 103/mcL Normal 4.5 - 10.8 10^3/mcL Workflow SS Calcium [Mass/Vol] 7.7 mg/dL Low 8.7 - 10. 4 mg/dL ADM SS Chloride [Moles/Vol] 100 mmol/L Normal 98 - 110 mEq/L ADM SS CO2 [Moles/Vol] 32 mmol/L Normal 22 - 32 mEq/L ADM SS Creatinine [Mass/Vol] 0.69 mg/dL Normal 0.60 - 1.40 mg/dL ADM SS Comment on above: Interpretive Data: T esting performed on [employer] analyzer using enzymatic creatinine methodology. Electrolyte Balance 4.0 mEq/L Normal 4.0 - 15 .0 mEq/L ADM SS GFR/1.73 sq M.predicted among blacks MDRD (S/P/Bld) [Vol rate/Area] ml/min/1.73sqm Invalid Interpretation Code [employer] Chemistry S Comment on above: Interpretive Data: [...] (S/P/Bld) [Vol rate/Area] ml/min/1.73sqm Invalid Interpretation Code [employer] Chemistry S Comment on above: Interpretive Data: [...] 02-20-2024 Magnesium [Mass/Vol] 1.8 mg/dL Normal 1.6-2.4 [facility] Comment on above: Performed By: #### M ORPH, BMP, CBC, MG, ANEU, ADIFF, GFR ####[address] [address] .Auto Diffon 02-19-2024 Basophil, Absolute 0.1 10 3/mcL Normal 0.0-0.3 [facility] MAIN Comment on above: Performed By: #### A DIFF, CBC, ANEU, AMM, GFR, PRO, CMP ####[address] [address] Basophils/100 WBC (Bld) 1.2 % Normal 0.0-2.5 [facility] MA[facility] Comment on above: Performed By: #### A DIFF, CBC, ANEU, AMM, GFR, PRO, CMP ####[address] [address] Eosinophil, Absolute 0.1 10 3/mcL Normal 0.0-0.7 [facility] Comment on above: Performed By: #### A DIFF, CBC, ANEU, AMM, GFR, PRO, CMP ####[address] [address] Eosinophils/100 WBC (Bld) 1.7 % Normal 0.0-6.0 [facility] Comment on above: Performed By: #### A DIFF, CBC, ANEU, AMM, GFR, PRO, CMP ####[address] [address] Lymphocyte, Absolute 1.8 10 3/mcL Normal 0.9-4.3 [facility] Comment on above: Performed By: #### A DIFF, CBC, ANEU, AMM, GFR, PRO, CMP ####[address] [address] Lymphocytes/100 WBC (Bld) 31.1 % Normal 20.0-40.0 [facility] Comment on above: Performed By: #### A DIFF, CBC, ANEU, AMM, GFR, PRO, CMP ####[address] [address] Monocyte, Absolute 0.6 10 3/mcL Normal 0.1-1.4 [facility] MAIN Comment on above: Performed By: #### A DIFF, CBC, ANEU, AMM, GFR, PRO, CMP ####[address] [address] Monocytes/100 WBC (Bld) 9.7 % Normal 2.0-13.0 [facility] Comment on above: Performed By: #### A DIFF, CBC, ANEU, AMM, GFR, PRO, CMP ####[address] [address] Neutrophils/100 WBC (Bld) 56.3 % Normal 50.0-75.0 [facility] MA[facility] Comment on above: Performed By: #### A DIFF, CBC, ANEU, AMM, GFR, PRO, CMP ####[address] [address] .GFRon 02-19-2024 GFR Non- >60 [facility] MAIN Comment on above: Result Comment: GFR [...] DIFF, CBC, ANEU, AMM, GFR, PRO, CMP ####[address] [address] GFR >60 [facility] MAIN Comment on above: Result Comment: GFR [...] DIFF, CBC, ANEU, AMM, GFR, PRO, CMP ####[place] [id number] .NEUABSon 02-19-2024 Neutrophil, Absolute 3.2 10 3/mcL Normal 2.3-8.1 [facility] Comment on above: Performed By: #### A DIFF, CBC, ANEU, AMM, GFR, PRO, CMP ####[place] [id number] Eleazar 02-19-2024 Ammonia (P) [Mass/Vol] ug/dL Low 11-32 [facility] Comment on above: Performed By: #### A DIFF, CBC, ANEU, AMM, GFR, PRO, CMP ####[place] [address] BFPRon 02-19-2024 Body Fluid Path Review Normal [facility] MA[facility] Comment on above: Order Comment: [...] A LBBF, BFPR, LDBF, GLUBF, BFCT, PROBF ####[place] [address] CBCon 02-19-2024 Erythrocyte distribution width (RBC) [Ratio] 14.1 % Normal 11.5-15.5 [facility] Comment on above: Performed By: #### A DIFF, CBC, ANEU, AMM, GFR, PRO, CMP ####[place] [address] Hematocrit (Bld) [Volume fraction] 33.9 % Low 40.0-52.0 [facility] Comment on above: Performed By: #### A DIFF, CBC, ANEU, AMM, GFR, PRO, CMP ####[place] [address] Hgb 11.7 G/dL Low 13.0-17.5 [facility] Comment on above: Performed By: #### A DIFF, CBC, ANEU, AMM, GFR, PRO, CMP ####[place] [address] MCH (RBC) [Entitic mass] 37.4 pg High 27.0-33.0 [facility] Comment on above: Performed By: #### A DIFF, CBC, ANEU, AMM, GFR, PRO, CMP ####[place] [address] MCHC 34.4 G/dL Normal 32.0-36.0 [facility] Comment on above: Performed By: #### A DIFF, CBC, ANEU, AMM, GFR, PRO, CMP ####[place] [address] MCV (RBC) [Entitic vol] 108.8 fL High 81.0-100.0 [facility] Comment on above: Performed By: #### A DIFF, CBC, ANEU, AMM, GFR, PRO, CMP ####[place] [address] Platelet 270 10 3/mcL Normal 150-450 [facility] Comment on above: Performed By: #### A DIFF, CBC, ANEU, AMM, GFR, PRO, CMP ####[place] [address] Platelet mean volume (Bld) [Entitic vol] 8.3 fL Normal 6.4-10.5 [facility] Comment on above: Performed By: #### A DIFF, CBC, ANEU, AMM, GFR, PRO, CMP ####[place] [address] RBC 3.12 10 6/mcL Low 4.50-6.00 [facility] Comment on above: Performed By: #### A DIFF, CBC, ANEU, AMM, GFR, PRO, CMP ####[place] [address] WBC 5.8 10 3/mcL Normal 4.5-10.8 [facility] Comment on above: Performed By: #### A DIFF, CBC, ANEU, AMM, GFR, PRO, CMP ####[place] [address] CMPon 02-19-2024 Albumin Level 2.0 G/dL Low 3.2-4.8 [facility] Comment on above: Performed By: #### A DIFF, CBC, ANEU, AMM, GFR, PRO, CMP ####[place] [address] Albumin/Globulin [Mass ratio] 0.7 {ratio} Low 0.9-1.6 [facility] Comment on above: Performed By: #### A DIFF, CBC, ANEU, AMM, GFR, PRO, CMP ####[place] [address] ALP [Catalytic activity/Vol] 98 U/L Normal 38-126 [facility] Comment on above: Performed By: #### A DIFF, CBC, ANEU, AMM, GFR, PRO, CMP ####[place] [address] ALT [Catalytic activity/Vol] 7 U/L Low 12-55 [facility] Comment on above: Performed By: #### A DIFF, CBC, ANEU, AMM, GFR, PRO, CMP ####[place] [address] AST [Catalytic activity/Vol] 19 U/L Normal 8-34 [facility] Comment on above: Performed By: #### A DIFF, CBC, ANEU, AMM, GFR, PRO, CMP ####[place] [address] Bili Total 0.80 mg/dL Normal 0.20-1.20 [facility] Comment on above: Result Comment: Use of this assay is not recommended for patients undergoing treatment with eltrombopag due to the potential for falsely elevated results. Performed By: #### A DIFF, CBC, ANEU, AMM, GFR, PRO, CMP ####[place] [id number] Calcium [Mass/Vol] 7.7 mg/dL Low 8.7-10.4 [facility] Comment on above: Performed By: #### A DIFF, CBC, ANEU, AMM, GFR, PRO, CMP ####[address] [address] Chloride [Moles/Vol] 104 mmol/L Normal 98-110 [facility] Comment on above: Performed By: #### A DIFF, CBC, ANEU, AMM, GFR, PRO, CMP ####[place] [id number] CO2 [Moles/Vol] 30 mmol/L Normal 22-32 [facility] Comment on above: Performed By: #### A DIFF, CBC, ANEU, AMM, GFR, PRO, CMP ####[place] [id number] Creatinine [Mass/Vol] 0.74 mg/dL Normal 0.60-1.40 [facility] Comment on above: Result Comment: Test ing performed on [employer] analyzer using enzymatic creatinine methodology. Performed By: #### A DIFF, CBC, ANEU, AMM, GFR, PRO, CMP ####[place] [address] Electrolyte Balance 5.0 mEq/L Normal 4.0-15.0 [facility] MA[facility] Comment on above: Performed By: #### A DIFF, CBC, ANEU, AMM, GFR, PRO, CMP ####[place] [id number] Globulin 2.8 G/dL Normal 1.5-3.8 [facility] Comment on above: Performed By: #### A DIFF, CBC, ANEU, AMM, GFR, PRO, CMP ####[place] [id number] Glucose [Mass/Vol] 85 mg/dL Normal 70-110 [facility] Comment on above: Performed By: #### A DIFF, CBC, ANEU, AMM, GFR, PRO, CMP ####[place] [id number] Potassium [Moles/Vol] 3.4 mmol/L Low 3.5-5.0 [facility] Comment on above: Performed By: #### A DIFF, CBC, ANEU, AMM, GFR, PRO, CMP ####[place] [address] Sodium [Moles/Vol] 139 mmol/L Normal 136-145 [facility] Comment on above: Performed By: #### A DIFF, CBC, ANEU, AMM, GFR, PRO, CMP ####[place] [address] Total Protein 4.8 G/dL Low 5.7-8.2 [facility] Comment on above: Result Comment: No te - New Reference Range in effect 19 Performed By: #### A DIFF, CBC, ANEU, AMM, GFR, PRO, CMP ####[place] [address] Urea nitrogen [Mass/Vol] mg/dL Low 8.0-22.0 [facility] Comment on above: Performed By: #### A DIFF, CBC, ANEU, AMM, GFR, PRO, CMP ####[place] [address] Urea nitrogen/Creatinine [Mass ratio] mg/mg Low 10.0-22.0 [facility] Comment on above: Performed By: #### A DIFF, CBC, ANEU, AMM, GFR, PRO, CMP ####[place] [address] LABORATORYOrdered By: SYSTEM SYSTEM on 02-19-2024 Albumin [...] International Ratio 1.1 ratio Invalid Interpretation Code [facility] Comment on above: Interpretive Data: T l[employer] (CHEST, 1991, [id number]) recommended therapeutic range for oral anticoagulant therapy is: LOW RISK: Prophylaxis of venous thrombosis INR: 2.0-3.0 Treatment of pulmonary embolism 2.0-3.0 Prevention of systemic embolism 2.0-3.0 HIGH RISK: Mechanical prosthetic valves 2.5-3.5 PROon 02-19-2024 INR Coag (PPP) [Relative time] 1.1 {INR} Normal [facility] Comment on above: Result Comment: [employer] [place] (CHEST, 1991, [id number]) recommended therapeutic range for oral anticoagulant therapy is: LOW RISK: Prophylaxis of venous thrombosis INR: 2.0-3.0 Treatment of pulmonary embolism 2.0-3.0 Prevention of systemic embolism 2.0-3.0 HIGH RISK: Mechanical prosthetic valves 2.5-3.5 Performed By: #### A DIFF, CBC, ANEU, AMM, GFR, PRO, CMP ####[place] [address] PT Coag (PPP) [Time] 12.6 s Normal 9.0-14.4 [facility] Comment on above: Result Comment: Effe ctive 12/07/07, Protime results may be affected by some antibiotics (i.e. Ciprofloxacin, Azithromycin, Bactrim) which may potentiate the action of oral anticoagulants, with further increases in Protime/INR. Performed By: #### A DIFF, CBC, ANEU, AMM, GFR, PRO, CMP ####[address] [address] .Auto Diffon 02-18-2024 Basophil, Absolute 0.0 10 3/mcL Normal 0.0-0.3 [facility] Comment on above: Performed By: #### A DIFF, GFR, MG, HFP, BMP, ANEU, CBC ####[address] [address] Basophils/100 WBC (Bld) 0.6 % Normal 0.0-2.5 [facility] Comment on above: Performed By: #### A DIFF, GFR, MG, HFP, BMP, ANEU, CBC ####[address] [address] Eosinophil, Absolute 0.1 10 3/mcL Normal 0.0-0.7 [facility] Comment on above: Performed By: #### A DIFF, GFR, MG, HFP, BMP, ANEU, CBC ####[address] [address] Eosinophils/100 WBC (Bld) 1.2 % Normal 0.0-6.0 [facility] Comment on above: Performed By: #### A DIFF, GFR, MG, HFP, BMP, ANEU, CBC ####[address] [address] Lymphocyte, Absolute 1.0 10 3/mcL Normal 0.9-4.3 [facility] Comment on above: Performed By: #### A DIFF, GFR, MG, HFP, BMP, ANEU, CBC ####[address] [address] Lymphocytes/100 WBC (Bld) 15.5 % Low 20.0-40.0 [facility] Comment on above: Performed By: #### A DIFF, GFR, MG, HFP, BMP, ANEU, CBC ####[address] [address] Monocyte, Absolute 0.6 10 3/mcL Normal 0.1-1.4 [facility] Comment on above: Performed By: #### A DIFF, GFR, MG, HFP, BMP, ANEU, CBC ####[address] [address] Monocytes/100 WBC (Bld) 9.9 % Normal 2.0-13.0 [facility] Comment on above: Performed By: #### A DIFF, GFR, MG, HFP, BMP, ANEU, CBC ####[address] [address] Neutrophils/100 WBC (Bld) 72.8 % Normal 50.0-75.0 [facility] Comment on above: Performed By: #### A DIFF, GFR, MG, HFP, BMP, ANEU, CBC ####[place] [address] .GFRon 02-18-2024 GFR >60 [facility] MAIN Comment on above: Result Comment: GFR [...] DIFF, GFR, MG, HFP, BMP, ANEU, CBC ####[address] [address] GFR Non- >60 Normal [facility] Comment on above: Result Comment: [...] DIFF, GFR, MG, HFP, BMP, ANEU, CBC ####[place] [address] .NEUABSon 02-18-2024 Neutrophil, Absolute 4.5 10 3/mcL Normal 2.3-8.1 [facility] Comment on above: Performed By: #### A DIFF, GFR, MG, HFP, BMP, ANEU, CBC ####[place] [address] ALBBFon 02-18-2024 Albumin Body Fluid Spec Type Peritoneal fl Normal [facility] / [facility] Comment on above: Result Comment: The reference interval(s) and other method performance specifications have not been established for this body fluid. The test result must be integrated into the clinical content for interpretation. Performed By: #### A LBBF, BFPR, LDBF, GLUBF, BFCT, PROBF ####[place] [address] Albumin BF <0.5 Normal [facility] Comment on above: Performed By: #### A LBBF, BFPR, LDBF, GLUBF, BFCT, PROBF ####[place] [address] B12on 02-18-2024 Cobalamin (Vitamin B12) [Mass/Vol] 454 pg/mL Normal 211-911 [facility] Comment on above: Order Comment: add o n lab Performed By: #### F OL, B12 ####[place] [address] BFCTon 02-18-2024 Cells Counted BF 100 Normal [facility] Comment on above: Performed By: #### A LBBF, BFPR, LDBF, GLUBF, BFCT, PROBF ####[address] [address] Lymphocytes/100 WBC (Bld) 26 % [facility] Comment on above: Performed By: #### A LBBF, BFPR, LDBF, GLUBF, BFCT, PROBF ####[place] [id number] Mesothelial Cell % BF 14 % Normal [facility] Comment on above: Performed By: #### A LBBF, BFPR, LDBF, GLUBF, BFCT, PROBF ####[place] [address] Mononuclear cell % BF 19 % [facility] Comment on above: Performed By: #### A LBBF, BFPR, LDBF, GLUBF, BFCT, PROBF ####[place] [id number] Neutrophils/100 WBC (Bld) 41 % [facility] Comment on above: Performed By: #### A LBBF, BFPR, LDBF, GLUBF, BFCT, PROBF ####[place] [address] Body Fluid Source Ascites fluid Normal [facility] Comment on above: Result Comment: Refe rence ranges have not been established for this body fluid. The test results must be integrated into the clinical context for interpretation. Performed By: #### A LBBF, BFPR, LDBF, GLUBF, BFCT, PROBF ####[address] [address] Total Nucleated Cells 232 /mm3 [facility] Comment on above: Performed By: #### A LBBF, BFPR, LDBF, GLUBF, BFCT, PROBF ####[place] [id number] BMPon 02-18-2024 Calcium [Mass/Vol] 7.5 mg/dL Low 8.7-10.4 [facility] Comment on above: Order Comment: Aviva jimenez 0501 the morning of patient admission. Performed By: #### A DIFF, GFR, MG, HFP, BMP, ANEU, CBC ####[place] [id number] BUN/Creatinine Ratio Unable to Calculate Normal 10.0-22.0 [facility] Comment on above: Order Comment: Routi ne for 0501 the morning of patient admission. Result Comment: Unab le to calculate this test result accurately. Results used to calculate this test are outside the reportable range. Performed By: #### A DIFF, GFR, MG, HFP, BMP, ANEU, CBC ####[address] [address] Urea nitrogen [Mass/Vol] mg/dL Low 8.0-22.0 [facility] Comment on above: Order Comment: Routi ne for 0501 the morning of patient admission. Performed By: #### A DIFF, GFR, MG, HFP, BMP, ANEU, CBC ####[place] [id number] Chloride [Moles/Vol] 104 mmol/L Normal 98-110 [facility] Comment on above: Order Comment: Routi ne for 0501 the morning of patient admission. Performed By: #### A DIFF, GFR, MG, HFP, BMP, ANEU, CBC ####[place] [id number] CO2 [Moles/Vol] 31 mmol/L Normal 22-32 [facility] Comment on above: Order Comment: Routi ne for 0501 the morning of patient admission. Performed By: #### A DIFF, GFR, MG, HFP, BMP, ANEU, CBC ####[place] [id number] Creatinine [Mass/Vol] 0.67 mg/dL Normal 0.60-1.40 [facility] Comment on above: Order Comment: Routi ne for 0501 the morning of patient admission. Result Comment: Test ing performed on Sonian analyzer using enzymatic creatinine methodology. Performed By: #### A DIFF, GFR, MG, HFP, BMP, ANEU, CBC ####[place] [address] Electrolyte Balance 4.0 mEq/L Normal 4.0-15.0 [facility] Comment on above: Order Comment: Routi ne for 0501 the morning of patient admission. Performed By: #### A DIFF, GFR, MG, HFP, BMP, ANEU, CBC ####[address] [address] Glucose [Mass/Vol] 81 mg/dL Normal 70-110 [facility] Comment on above: Order Comment: Routi ne for 0501 the morning of patient admission. Performed By: #### A DIFF, GFR, MG, HFP, BMP, ANEU, CBC ####[place] [phone] Potassium [Moles/Vol] 3.7 mmol/L Normal 3.5-5.0 [facility] Comment on above: Order Comment: Routi ne for 0501 the morning of patient admission. Performed By: #### A DIFF, GFR, MG, HFP, BMP, ANEU, CBC ####[place] [id number] Sodium [Moles/Vol] 139 mmol/L Normal 136-145 [facility] Comment on above: Order Comment: Routi ne for 0501 the morning of patient admission. Performed By: #### A DIFF, GFR, MG, HFP, BMP, ANEU, CBC ####[place] [address] CBCon 02-18-2024 Erythrocyte distribution width (RBC) [Ratio] 14.0 % Normal 11.5-15.5 [facility] Comment on above: Order Comment: Routi ne for 0501 the morning of patient admission. Performed By: #### A DIFF, GFR, MG, HFP, BMP, ANEU, CBC ####[place] [address] Hematocrit (Bld) [Volume fraction] 33.5 % Low 40.0-52.0 [facility] Comment on above: Order Comment: Routi ne for 0501 the morning of patient admission. Performed By: #### A DIFF, GFR, MG, HFP, BMP, ANEU, CBC ####[place] [address] Hgb 11.6 G/dL Low 13.0-17.5 [facility] Comment on above: Order Comment: Routi ne for 0501 the morning of patient admission. Performed By: #### A DIFF, GFR, MG, HFP, BMP, ANEU, CBC ####[place] [address] MCH (RBC) [Entitic mass] 38.1 pg High 27.0-33.0 [facility] Comment on above: Order Comment: Routi ne for 0501 the morning of patient admission. Performed By: #### A DIFF, GFR, MG, HFP, BMP, ANEU, CBC ####[place] [address] MCHC 34.5 G/dL Normal 32.0-36.0 [facility] Comment on above: Order Comment: Routi ne for 0501 the morning of patient admission. Performed By: #### A DIFF, GFR, MG, HFP, BMP, ANEU, CBC ####[place] [address] MCV (RBC) [Entitic vol] 110.6 fL High 81.0-100.0 [facility] Comment on above: Order Comment: Routi ne for 0501 the morning of patient admission. Performed By: #### A DIFF, GFR, MG, HFP, BMP, ANEU, CBC ####[place] [address] Platelet 295 10 3/mcL Normal 150-450 [facility] Comment on above: Order Comment: Routi ne for 0501 the morning of patient admission. Performed By: #### A DIFF, GFR, MG, HFP, BMP, ANEU, CBC ####[place] [address] Platelet mean volume (Bld) [Entitic vol] 7.7 fL Normal 6.4-10.5 [facility] Comment on above: Order Comment: Routi ne for 0501 the morning of patient admission. Performed By: #### A DIFF, GFR, MG, HFP, BMP, ANEU, CBC ####[place] [address] RBC 3.03 10 6/mcL Low 4.50-6.00 [facility] Comment on above: Order Comment: Routi ne for 0501 the morning of patient admission. Performed By: #### A DIFF, GFR, MG, HFP, BMP, ANEU, CBC ####[place] [address] WBC 6.2 10 3/mcL Normal 4.5-10.8 [facility] Comment on above: Order Comment: Routi ne for 0501 the morning of patient admission. Performed By: #### A DIFF, GFR, MG, HFP, BMP, ANEU, CBC ####[place] [address] FOLon 02-18-2024 Folate 2.63 ng/mL Low 5.38-24.00 [facility] Comment on above: Order Comment: Add o n lab Performed By: #### F OL, B12 ####[place] [address] GLUBFon 02-18-2024 Glucose Body Fluid Spec Type Peritoneal fl Normal [facility] Comment on above: Result Comment: The reference interval(s) and other method performance specifications have not been established for this body fluid. The test result must be integrated into the clinical content for interpretation. Performed By: #### A LBBF, BFPR, LDBF, GLUBF, BFCT, PROBF ####[place] [address] Glucose BF 115.0 mg/dL Normal [facility] Comment on above: Performed By: #### A LBBF, BFPR, LDBF, GLUBF, BFCT, PROBF ####[place] [address] HFPon 02-18-2024 Bili Indirect 0.4 mg/dL Normal 0.1-10.0 [facility] Comment on above: Performed By: #### A DIFF, GFR, MG, HFP, BMP, ANEU, CBC ####[place] [address] Albumin Level 1.5 G/dL Low 3.2-4.8 [facility] Comment on above: Performed By: #### A DIFF, GFR, MG, HFP, BMP, ANEU, CBC ####[place] [address] Albumin/Globulin [Mass ratio] 0.5 {ratio} Low 0.9-1.6 [facility] Comment on above: Performed By: #### A DIFF, GFR, MG, HFP, BMP, ANEU, CBC ####[place] [address] ALP [Catalytic activity/Vol] 102 U/L Normal 38-126 [facility] Comment on above: Performed By: #### A DIFF, GFR, MG, HFP, BMP, ANEU, CBC ####[place] [address] ALT [Catalytic activity/Vol] 10 U/L Low 12-55 [facility] Comment on above: Performed By: #### A DIFF, GFR, MG, HFP, BMP, ANEU, CBC ####[place] [address] AST [Catalytic activity/Vol] 21 U/L Normal 8-34 [facility] Comment on above: Performed By: #### A DIFF, GFR, MG, HFP, BMP, ANEU, CBC ####[place] [address] Bili Direct 0.4 mg/dL Normal 0.0-0.4 [facility] Comment on above: Result Comment: Use of this assay is not recommended for patients undergoing treatment with eltrombopag due to the potential for falsely elevated results. Performed By: #### A DIFF, GFR, MG, HFP, BMP, ANEU, CBC ####[place] [address] Bili Total 0.80 mg/dL Normal 0.20-1.20 [facility] Comment on above: Result Comment: Use of this assay is not recommended for patients undergoing treatment with eltrombopag due to the potential for falsely elevated results. Performed By: #### A DIFF, GFR, MG, HFP, BMP, ANEU, CBC ####[place] [address] Globulin 3.0 G/dL Normal 1.5-3.8 [facility] Comment on above: Performed By: #### A DIFF, GFR, MG, HFP, BMP, ANEU, CBC ####[facility] [place] [address] Total Protein 4.5 G/dL Low 5.7-8.2 [facility] Comment on above: Result Comment: No te - New Reference Range in effect 19 Performed By: #### A DIFF, GFR, MG, HFP, BMP, ANEU, CBC ####[place] [id number] [address] [place] [address] LABORATORYOrdered By: SYSTEM SYSTEM on 02-18-2024 Albumin [...] ng/mL Low 5.38 - 24. 00 ng/mL AH ADM SS Globulin 3.0 G/dL Normal 1.5 - 3.8 G/dL AH ADM SS Magnesium [Mass/Vol] 1.5 mg/dL Low 1.6 - 2.4 mg/dL AH ADM SS Protein [Mass/Vol] 4.5 G/dL Low 5.7 - 8.2 G/dL AH ADM SS Comment on above: Interpretive Data: * *Note - New Reference Range in effect 19 LABORATORYOrdered By: Cameron Rodas on 02-18-2024 Albumin Body Fluid Spec Type Peritoneal fl 29 (02/18/24 2:30 PM) Normal Chemistry S Comment on above: Interpretive Data: T he reference interval(s) and other method performance specifications have not been established for this body fluid. The test result must be integrated into the clinical content for interpretation. Cells Counted Total (Unsp spec) [#] 100 1 Invalid Interpretation Code Manual Heme SS Glucose Body Fluid Spec Type Peritoneal fl 31 (02/18/24 2:30 PM) Normal Chemistry S Comment on above: Interpretive Data: T he reference interval(s) and other method performance specifications have not been established for this body fluid. The test result must be integrated into the clinical content for interpretation. LDH Body Fluid Spec Type Peritoneal fl 32 (02/18/24 2:30 PM) Normal Chemistry S Comment on above: Interpretive Data: T he reference interval(s) and other method performance specifications have not been established for this body fluid. The test result must be integrated into the clinical content for interpretation. . Lymphocytes/100 WBC (Body fld) 26 % Invalid Interpretation Code Manual Heme SS Mesothelial Cell % BF 14 % Invalid Interpretation Code AH Manual Heme SS Monocytes+Macrophag es/100 WBC (Body fld) 19 % Invalid Interpretation Code AH Manual Heme SS Neutrophils/100 WBC (Body fld) 41 % Invalid Interpretation Code AH Manual Heme SS Nucleated RBC/100 WBC (Bld) [Ratio] 232 % Invalid Interpretation Code Manual Heme SS Protein BF Type Peritoneal fl 27 (02/18/24 2:30 PM) Normal Chemistry S Comment [...] Body Fluid Spec Type Peritoneal fl Normal [facility] Comment on above: Result Comment: The reference interval(s) and other method performance specifications have not been established for this body fluid. The test result must be integrated into the clinical content for interpretation. . Performed By: #### A LBBF, BFPR, LDBF, GLUBF, BFCT, PROBF ####[place] [address] LDH BF 50.0 U/L Normal [facility] Comment on above: Performed By: #### A LBBF, BFPR, LDBF, GLUBF, BFCT, PROBF ####[place] [address] MGon 02-18-2024 Magnesium [Mass/Vol] 1.5 mg/dL Low 1.6-2.4 [facility] Comment on above: Performed By: #### A DIFF, GFR, MG, HFP, BMP, ANEU, CBC ####[address] [address] No Panel Informationon 02-17 Culture Body Fluid Culture has been rec eived in lab and is no growth to date. Routine cultures are held for 5 days. [facility] Work Phone: GS Sedimented 2+ Mononuclear cells 1+ Polymorphonuclear cells No organisms seen. [facility] Work Phone: PROBFon 02-18-2024 Protein BF Type Peritoneal fl Normal [facility] Comment on above: Result Comment: The reference interval(s) and other method performance specifications have not been established for this body fluid. The test result must be integrated into the clinical content for interpretation. Performed By: #### A LBBF, BFPR, LDBF, GLUBF, BFCT, PROBF ####[address] [address] Protein BF <2.0 Normal [facility] Comment on above: Performed By: #### A LBBF, BFPR, LDBF, GLUBF, BFCT, PROBF ####[address] [address] .Auto Diffon 02-17-2024 Basophil, Absolute 0.1 10 3/mcL Normal 0.0-0.3 [facility] Comment on above: Performed By: #### A MM, GFR, TROPHS, ANEU, CBC, PBNP, CMP, MDW, ADIFF, MORPH ####[address] [address] Basophils/100 WBC (Bld) 1.3 % Normal 0.0-2.5 [facility] Comment on above: Performed By: #### A MM, GFR, TROPHS, ANEU, CBC, PBNP, CMP, MDW, ADIFF, MORPH ####[address] [address] Eosinophil, Absolute 0.1 10 3/mcL Normal 0.0-0.7 [facility] Comment on above: Performed By: #### A MM, GFR, TROPHS, ANEU, CBC, PBNP, CMP, MDW, ADIFF, MORPH ####[address] [address] Eosinophils/100 WBC (Bld) 0.9 % Normal 0.0-6.0 [facility] Comment on above: Performed By: #### A MM, GFR, TROPHS, ANEU, CBC, PBNP, CMP, MDW, ADIFF, MORPH ####[address] [address] Lymphocyte, Absolute 1.3 10 3/mcL Normal 0.9-4.3 [facility] Comment on above: Performed By: #### A MM, GFR, TROPHS, ANEU, CBC, PBNP, CMP, MDW, ADIFF, MORPH ####[address] [address] Lymphocytes/100 WBC (Bld) 18.4 % Low 20.0-40.0 [facility] Comment on above: Performed By: #### A MM, GFR, TROPHS, ANEU, CBC, PBNP, CMP, MDW, ADIFF, MORPH ####[place] [id number] [address] [place] [address] Monocyte, Absolute 0.6 10 3/mcL Normal 0.1-1.4 [facility] Comment on above: Performed By: #### A MM, GFR, TROPHS, ANEU, CBC, PBNP, CMP, MDW, ADIFF, MORPH ####[facility] [place] [address] Monocytes/100 WBC (Bld) 8.8 % Normal 2.0-13.0 [facility] Comment on above: Performed By: #### A MM, GFR, TROPHS, ANEU, CBC, PBNP, CMP, MDW, ADIFF, MORPH ####[place] [id number] [address] [place] [address] Neutrophils/100 WBC (Bld) 70.6 % Normal 50.0-75.0 [facility] Comment on above: Performed By: #### A MM, GFR, TROPHS, ANEU, CBC, PBNP, CMP, MDW, ADIFF, MORPH ####[place] [id number] [address] [place] [address] .GFRon 02-17-2024 GFR Non- >60 Normal [facility] Comment on above: Result Comment: [...] ANEU, CBC, PBNP, CMP, MDW, ADIFF, MORPH ####[place] [address] GFR >60 Normal [facility] Comment on above: Result Comment: [...] ANEU, CBC, PBNP, CMP, MDW, ADIFF, MORPH ####[place] [address] .MDWon 02-17-2024 Monocyte Distribution Width 19.19 Normal 0.00-20.00 [facility] Comment on above: Result Comment: For ED adult patients suspected of sepsis, MDW<=20.0 does not rule out sepsis or risk of sepsis Performed By: #### A MM, GFR, TROPHS, ANEU, CBC, PBNP, CMP, MDW, ADIFF, MORPH ####[place] [address] .Morphon 02-17-2024 Platelet Estimate Normal Normal [facility] Comment on above: Performed By: #### A MM, GFR, TROPHS, ANEU, CBC, PBNP, CMP, MDW, ADIFF, MORPH ####[place] [address] Macrocytosis 2+ Normal [facility] Comment on above: Performed By: #### A MM, GFR, TROPHS, ANEU, CBC, PBNP, CMP, MDW, ADIFF, MORPH ####[place] [address] .NEUABSon 02-17-2024 Neutrophil, Absolute 4.9 10 3/mcL Normal 2.3-8.1 [facility] Comment on above: Performed By: #### A MM, GFR, TROPHS, ANEU, CBC, PBNP, CMP, MDW, ADIFF, MORPH ####[place] [address] Eleazar 02-17-2024 Ammonia (P) [Mass/Vol] ug/dL Low 11-32 [facility] Comment on above: Performed By: #### A MM, GFR, TROPHS, ANEU, CBC, PBNP, CMP, MDW, ADIFF, MORPH ####[place] [address] CBCon 02-17-2024 Erythrocyte distribution width (RBC) [Ratio] 14.1 % Normal 11.5-15.5 [facility] Comment on above: Performed By: #### A MM, GFR, TROPHS, ANEU, CBC, PBNP, CMP, MDW, ADIFF, MORPH ####[place] [address] Hematocrit (Bld) [Volume fraction] 37.2 % Low 40.0-52.0 [facility] Comment on above: Performed By: #### A MM, GFR, TROPHS, ANEU, CBC, PBNP, CMP, MDW, ADIFF, MORPH ####[place] [address] Hgb 12.7 G/dL Low 13.0-17.5 [facility] Comment on above: Performed By: #### A MM, GFR, TROPHS, ANEU, CBC, PBNP, CMP, MDW, ADIFF, MORPH ####[place] [address] MCH (RBC) [Entitic mass] 38.2 pg High 27.0-33.0 [facility] Comment on above: Performed By: #### A MM, GFR, TROPHS, ANEU, CBC, PBNP, CMP, MDW, ADIFF, MORPH ####[place] [address] MCHC 34.2 G/dL Normal 32.0-36.0 [facility] Comment on above: Performed By: #### A MM, GFR, TROPHS, ANEU, CBC, PBNP, CMP, MDW, ADIFF, MORPH ####[place] [address] MCV (RBC) [Entitic vol] 111.7 fL High 81.0-100.0 [facility] Comment on above: Performed By: #### A MM, GFR, TROPHS, ANEU, CBC, PBNP, CMP, MDW, ADIFF, MORPH ####[place] [address] Platelet 342 10 3/mcL Normal 150-450 [facility] Comment on above: Performed By: #### A MM, GFR, TROPHS, ANEU, CBC, PBNP, CMP, MDW, ADIFF, MORPH ####[place] [address] Platelet mean volume (Bld) [Entitic vol] 7.8 fL Normal 6.4-10.5 [facility] Comment on above: Performed By: #### A MM, GFR, TROPHS, ANEU, CBC, PBNP, CMP, MDW, ADIFF, MORPH ####[place] [address] RBC 3.33 10 6/mcL Low 4.50-6.00 [facility] Comment on above: Performed By: #### A MM, GFR, TROPHS, ANEU, CBC, PBNP, CMP, MDW, ADIFF, MORPH ####[place] [address] WBC 6.9 10 3/mcL Normal 4.5-10.8 [facility] Comment on above: Performed By: #### A MM, GFR, TROPHS, ANEU, CBC, PBNP, CMP, MDW, ADIFF, MORPH ####[place] [address] CMPon 02-17-2024 BUN/Creatinine Ratio Unable to Calculate Normal 10.0-22.0 [facility] Comment on above: Result Comment: Unab le to calculate this test result accurately. Results used to calculate this test are outside the reportable range. Performed By: #### A MM, GFR, TROPHS, ANEU, CBC, PBNP, CMP, MDW, ADIFF, MORPH ####[address] [address] Urea nitrogen [Mass/Vol] mg/dL Low 8.0-22.0 [facility] Comment on above: Performed By: #### A MM, GFR, TROPHS, ANEU, CBC, PBNP, CMP, MDW, ADIFF, MORPH ####[place] [id number] Albumin Level 2.2 G/dL Low 3.2-4.8 [facility] Comment on above: Performed By: #### A MM, GFR, TROPHS, ANEU, CBC, PBNP, CMP, MDW, ADIFF, MORPH ####[place] [address] Albumin/Globulin [Mass ratio] 0.5 {ratio} Low 0.9-1.6 [facility] Comment on above: Performed By: #### A MM, GFR, TROPHS, ANEU, CBC, PBNP, CMP, MDW, ADIFF, MORPH ####[address] [address] ALP [Catalytic activity/Vol] 131 U/L High 38-126 [facility] Comment on above: Performed By: #### A MM, GFR, TROPHS, ANEU, CBC, PBNP, CMP, MDW, ADIFF, MORPH ####[address] [address] ALT [Catalytic activity/Vol] 11 U/L Low 12-55 [facility] Comment on above: Performed By: #### A MM, GFR, TROPHS, ANEU, CBC, PBNP, CMP, MDW, ADIFF, MORPH ####[address] [address] AST [Catalytic activity/Vol] 28 U/L Normal 8-34 [facility] Comment on above: Performed By: #### A MM, GFR, TROPHS, ANEU, CBC, PBNP, CMP, MDW, ADIFF, MORPH ####[place] [id number] Bili Total 0.70 mg/dL Normal 0.20-1.20 [facility] Comment on above: Result Comment: Use of this assay is not recommended for patients undergoing treatment with eltrombopag due to the potential for falsely elevated results. Performed By: #### A MM, GFR, TROPHS, ANEU, CBC, PBNP, CMP, MDW, ADIFF, MORPH ####[address] [address] Calcium [Mass/Vol] 8.8 mg/dL Normal 8.7-10.4 [facility] Comment on above: Performed By: #### A MM, GFR, TROPHS, ANEU, CBC, PBNP, CMP, MDW, ADIFF, MORPH ####[address] [address] Chloride [Moles/Vol] 104 mmol/L Normal 98-110 [facility] Comment on above: Performed By: #### A MM, GFR, TROPHS, ANEU, CBC, PBNP, CMP, MDW, ADIFF, MORPH ####[address] [address] CO2 [Moles/Vol] 28 mmol/L Normal 22-32 [facility] Comment on above: Performed By: #### A MM, GFR, TROPHS, ANEU, CBC, PBNP, CMP, MDW, ADIFF, MORPH ####[place] [address] Creatinine [Mass/Vol] 0.69 mg/dL Normal 0.60-1.40 [facility] Comment on above: Result Comment: Test ing performed on Sonian analyzer using enzymatic creatinine methodology. Performed By: #### A MM, GFR, TROPHS, ANEU, CBC, PBNP, CMP, MDW, ADIFF, MORPH ####[place] [address] Electrolyte Balance 4.0 mEq/L Normal 4.0-15.0 [facility] Comment on above: Performed By: #### A MM, GFR, TROPHS, ANEU, CBC, PBNP, CMP, MDW, ADIFF, MORPH ####[place] [id number] Globulin 4.1 G/dL High 1.5-3.8 [facility] Comment on above: Performed By: #### A MM, GFR, TROPHS, ANEU, CBC, PBNP, CMP, MDW, ADIFF, MORPH ####[place] [id number] [address] [place] [address] Glucose [Mass/Vol] 106 mg/dL Normal 70-110 [facility] Comment on above: Performed By: #### A MM, GFR, TROPHS, ANEU, CBC, PBNP, CMP, MDW, ADIFF, MORPH ####[address] [address] Potassium [Moles/Vol] 3.7 mmol/L Normal 3.5-5.0 [facility] Comment on above: Performed By: #### A MM, GFR, TROPHS, ANEU, CBC, PBNP, CMP, MDW, ADIFF, MORPH ####[address] [address] Sodium [Moles/Vol] 136 mmol/L Normal 136-145 [facility] Comment on above: Performed By: #### A MM, GFR, TROPHS, ANEU, CBC, PBNP, CMP, MDW, ADIFF, MORPH ####[address] [address] Total Protein 6.3 G/dL Normal 5.7-8.2 [facility] Comment on above: Result Comment: No te - New Reference Range in effect 19 Performed By: #### A MM, GFR, TROPHS, ANEU, CBC, PBNP, CMP, MDW, ADIFF, MORPH ####[address] [address] [address] ABD/PELVIS W/ IV CONTRAST ONLYon 02-17-2024 [...] 02/17/2024 5:12:01 PM Ordering Provider: JOLYNN SPARKS [facility] MAIN LABORATORYOrdered By: Kailyn Hickey on 02-17-2024 [...] SS UA Protein Trace mg/dL Normal Negative AH Auto Urine SS UA Spec Grav 1.020 (02/17/24 3:59 PM) Normal 1.006-1.029 AH Auto Urine SS UA Specimen Type Clean Catch (02/17/24 3:59 PM) Normal AH Auto Urine SS UA Urobilinogen 1.0 E.U./dL Normal 0.2-1.0 AH Auto Urine SS LABORATORYOrdered By: SYSTEM SYSTEM on 02-17-2024 Albumin BCP dye [Mass/Vol] 2.2 G/dL Low 3.2 - 4.8 G/dL AH ADM SS Albumin/Globulin [Mass ratio] 0.5 {ratio} Low 0.9 - 1.6 ratio AH ADM SS ALP [Catalytic activity/Vol] 131 U/L High 38 - 126 U/L AH ADM SS ALT No additional P-5'-P [Catalytic activity/Vol] 11 U/L Low 12 - 55 U/L AH ADM SS Ammonia (P) [Mass/Vol] mcmol/L Low 11 - 32 mcmol/L AH ADM SS AST [Catalytic activity/Vol] 28 U/L Normal 8 - 34 U/L AH ADM SS Bilirubin [Mass/Vol] 0.70 mg/dL Normal 0.20 - 1.20 mg/dL AH ADM SS Comment on above: Interpretive Data: U se of this assay is not recommended for patients undergoing treatment with eltrombopag due to the potential for falsely elevated results. Globulin 4.1 G/dL High 1.5 - 3.8 G/dL AH ADM SS Macrocytes Ql (Bld) 2+ *NA* [...] B (Bld) [Mass/Vol] 1359 pg/mL High 0-900 [facility] Comment on above: Performed By: #### A MM, GFR, TROPHS, ANEU, CBC, PBNP, CMP, MDW, ADMARY, MORPH #### [address] [address] [facility] High Sensitivity Troponin I 3 ng/L Normal 0-54 [facility] Comment on above: Result Comment: High Sensitive Troponin I Reference Ranges: Female: 0-34 ng/L Male: 0-54 ng/L Testing performed on [employer] IM analyzer using direct chemiluminescent technology. Performed By: #### A MM, GFR, TROPHS, ANEU, CBC, PBNP, CMP, MDW, ADIFF, MORPH ####[facility] [place] [address] UAon 02-17-2024 Color (U) Dark Yellow Normal [facility] Comment on above: Performed By: #### U A #### [address] [address] Glucose (U) [Mass/Vol] Negative Normal Negative [facility] Comment on above: Performed By: #### U A #### [address] [address] Ketones Ql (U) Negative Normal Neg-Trace [facility] Comment on above: Performed By: #### U A #### [place] [address] UA Appear Clear Normal Clear [facility] Comment on above: Performed By: #### U A #### [place] [id number] UA Blood Negative Normal Neg-Trace [facility] Comment on above: Performed By: #### U A #### [place] [address] UA Leuk Est Negative Normal Negative [facility] Comment on above: Performed By: #### U A #### [place] [address] UA Nitrite Negative Normal Negative [facility] Comment on above: Performed By: #### U A #### [place] [address] UA pH 5.5 Normal 5.0 - 8.0 [facility] Comment on above: Performed By: #### U A #### [place] [address] UA Protein Trace Normal Negative [facility] Comment on above: Performed By: #### U A #### [place] [address] UA Spec Grav 1.020 Normal 1.006-1.029 [facility] Comment on above: Performed By: #### U A #### [place] [address] UA Specimen Type Clean Catch Normal [facility] Comment on above: Performed By: #### U A #### [place] [address] UA Urobilinogen 1.0 E.U./dL Normal 0.2-1.0 [facility] Comment on above: Performed By: #### U A #### [place] [address] Urobilinogen (U) [Mass/Vol] Negative Normal Neg-Trace [facility] Comment on above: Performed By: #### U A #### [place] [address] XR CHEST 1 VIEWon 02-17-2024 XR CHEST [...] 02/17/2024 4:50:32 PM Ordering Provider: JOLYNN SPARKS [facility] Culture, Anaerobic Any Sourc red 02-07-2024 CUAN No growth in 5 days. Normal [facility] Comment on above: Performed By: #### L 3890.6300, L3890.6100, L3890.6200 #### [facility] [address] [place], [place], [address] Body Fluid Culton 02-05-2024 BFC No growth aerobically. Normal [facility] Comment on above: Performed By: #### L 3890.6300, L3890.6100, L3890.6200 #### [facility] [address] [place], [address] Amylase Body Fluidon 024 AMYLASE,BDY FLD 9 U/L Normal . [facility] Comment on above: Order Comment: . Result Comment: ____ : BODY FLUID TYPE : AMYLASE : : : : : Lymph : 50 - 83 : : : : : Peritoneal : : : Fluid : 88 - 109 : : : : : Saliva : : : (Mixed Glands) : 84519 - 529909 : : : : Shiloh Otoole, Kelsey Bustos. Reference Intervals for Adults and Children 2008. Ninth Edition (V9.1) [employer], [facility]; [place]: November 2008. Performed at: [address] [id number] Central Processing Technician: Scott Pope PhD, Phone: [phone] Performed By: #### L 3800.0050, L503.6161, L501.4493, L568.7832 #### [facility] [address] [facility] [place], [place], [address] Body Fluid Cell Count+Diffon 02-03-2024 PATH COMM/BF Reviewed Normal [facility] Comment on above: Result Comment: Nega tive for malignant cells. PLEASE ALSO REFER TO CYTOLOGY REPORT [id number] Abraham Paulino M.D. 02/03/24 AMENDED REPORT 02/03/24 1024 PATH COMM/BF previously reported as: May follow Performed By: #### L 3890.6300, L3890.6100, L3890.6200 #### [facility] [address] [place], [place], [id number] Gram Stainon 02-03-2024 GS Centrifuged Specimen ? Culture performed on centrifuged specimen Gram Stain 1+ White Blood Cells 1+ Red Blood Cells No organisms seen Normal [facility] Comment on above: Performed By: #### L 3890.6300, L3890.6100, L3890.6200 #### [facility] [address] [place], [address] Basic Metabolic Profile (BMP )on 02-02-2024 BUN/CRE 8.8 RATIO Low 10-20 [facility] Comment on above: Performed By: #### L 3890.6300, L3890.6100, L3890.6200 #### [facility] [address] [place], [address] CA,Total 8.2 mg/dL Low 8.5-10.1 [facility] Comment on above: Performed By: #### L 3890.6300, L3890.6100, L3890.6200 #### [facility] [address] [place], [address] Chloride [Moles/Vol] 98 mmol/L Normal 98-107 [facility] Comment on above: Performed By: #### L 3890.6300, L3890.6100, L3890.6200 #### [facility] [address] [place], [address] CO2 [Moles/Vol] 28.0 mmol/L Normal 21.0-32.0 [facility] Comment on above: Performed By: #### L 3890.6300, L3890.6100, L3890.6200 #### [facility] [address] [place], [address] Creatinine [Mass/Vol] 0.68 mg/dL Low 0.70-1.30 [facility] Comment on above: Result Comment: The validity of the calculated GFR GFRAA in patients over 70 years has not been determined. Clinical correlation is essential. Performed By: #### L 3890.6300, L3890.6100, L3890.6200 #### [facility] [address] [place], [address] ECRCL 122.26 ml/min Normal [facility] Comment on above: Performed By: #### L 3890.6300, L3890.6100, L3890.6200 #### [facility] [address] [place], [address] EST GFR - AA 153 mL/min Normal >60 [facility] Comment on above: Result Comment: Afri can Anguillan GFR Calc Performed By: #### L 3890.6300, L3890.6100, L3890.6200 #### [facility] [address] [place], [address] GAP 7 Normal 5-15 [facility] Comment on above: Performed By: #### L 3890.6300, L3890.6100, L3890.6200 #### [facility] [address] [place], [address] GFR/1.73 sq M.predicted among non-blacks MDRD (S/P/Bld) [Vol rate/Area] 126 mL/min/{1.73_m2} Normal >60 [facility] Comment on above: Result Comment: Non- GFR Calc Performed By: #### L 3890.6300, L3890.6100, L3890.6200 #### [facility] [address] [place], [address] Glucose [Mass/Vol] 80 mg/dL Normal 74-106 [facility] Comment on above: Performed By: #### L 3890.6300, L3890.6100, L3890.6200 #### [facility] [address] [place], [address] Potassium [Moles/Vol] 3.9 mmol/L Normal 3.5-5.1 [facility] Comment on above: Performed By: #### L 3890.6300, L3890.6100, L3890.6200 #### [facility] [address] [place], [address] Sodium [Moles/Vol] 133 mmol/L Low 136-145 [facility] Comment on above: Performed By: #### L 3890.6300, L3890.6100, L3890.6200 #### [facility] [address] [place], [address] Urea nitrogen [Mass/Vol] 6 mg/dL Low 7-18 [facility] Comment on above: Performed By: #### L 3890.6300, L3890.6100, L3890.6200 #### [facility] [address] [place], [address] Cytology, Body Fluid / CSFon 02-02-2024 CYTOLOGY,BF/CSF SEE PATHOLOGY REPORT Normal [facility] Comment on above: Result Comment: Spec imen submitted to Anatomical Pathology Department for testing. Performed By: #### L 3890.6300, L3890.6100, L3890.6200 #### [facility] [address] [place], [address] Discharge Instructionon 01-23 Discharge Instruction [facility] Medical Records Department [address] [place] [address] Instructions for Home/Discharge Instructions 02/02/24 1447 MR#: [id number] Acct: [id number] Name: NARCISO GLEZ Rep #: [id number] : 1965 58 From: Ramakrishna Bower DO [...] Up: Slim Guadalupe MD [Med Staff - Meat Packager] - Soco Perdomo [Non-Staff] - See Referral Note (In 2 weeks, call for an appointment) Care Physician,No Primary [Primary Care Provider] - Disposition Disposition (needs filled in before D/C Order can be placed): Home, Self Care 02/02/24 6597 Ramakrishna Bower DO CC: Dr. Earnestine Contreras MD; No Primary Care Physician Signed Normal [facility] Echo Limited w/Contraston Echo Limited w/Contrast [facility] Cardiovascular Services [address] [place] [address] Echo Limited w/Contrast 02/02/24 1540 MR#: [id number] Acct: [id number] Name: NARCISO GLEZ Rep #: [id number] : 1965 58 From: Tim Pandya MD Attending Dr: Dr. Ramakrishna Bower, Status: A DM IN Ordering Dr: Ramakrishna [...] Ordering Physician: Ramakrishna Bower Performed By: Kaylie Villa RDCS 02/02/241632 Date Tim Pandya MD CC: Dr. Ramakrishna Bower DO; No Primary Care Physician Date Dictated: 02/02/241539 Date Transcribed: 02/02/241632 Can Piler: Signed Normal [facility] Glucose, Body Fluidon 2023 GLU,BF 124 mg/dL High 40-70 [facility] Comment on above: Performed By: #### L 3890.6300, L3890.6100, L3890.6200 #### [facility] [address] [place], [place], [address] LDH,Body Fluidon 02-02-2024 LDH,BF 35 Units/L Normal Not Establ. [facility] Comment on above: Performed By: #### L 3890.6300, L3890.6100, L3890.6200 #### [facility] [address] [place], [address] Paracentesis with USon 02-[address] [facility] Imaging Services [address] [place], [place] [address] Paracentesis with US MR#: [id number] Acct: [id number] Name: NARCISO GLEZ Rep #: [id number] : 1965 M 58 From: Bean flores MD PCP: Care Physician,No Primary Status: ADM IN Study: Paracentesis with US Date of Exam: 02/02/24 Exam# [id number] Ordering Dr: Earnestine Contreras MD :[id number] PROCEDURE: Ultrasound guided paracentesis. DATE OF EXAMINATION: [...] the peritoneal cavity was accessed with a 5-Gibraltarian paracentesis needle/catheter system. The trocar was removed. [...] Earnestine Contreras MD; No Primary Care Physician Can Piler: Signed Normal [facility] Special Stain Group IIon Special Stain Group II -------- Patient Age/Sex Location Account Attending Physician -------- NARCISO GLEZ 58/M MS3 [id number] Dr. Ramakrishna Bower DO -------- Specimen: [id number] Received: 02/02/24 Status: TIANA Verdugo Num: [id number] Spec Type: Fluid Subm Dr: Dr. Ramakrishna Bower, DO HEADER OPERATION: Paracentesis fluid PRE-OP DIAGNOSIS: [...] including cell block. Mr 02/03/2024 TC:5 CPT: 31488,89276 Signed (signature on file) Dr. Oriana Farris, DO 02/05/24 0957 -------- Normal [facility] Comment on above: Performed By: #### L 3890.6300, L3890.6100, L3890.6200 #### [facility] [address] [place], [address] Specific Hanna, Body Fluid on 02-02-2024 SP.GR./BF 1.010 Normal [facility] Comment on above: Performed By: #### L 3890.6300, L3890.6100, L3890.6200 #### [facility] [address] [place], [address] Basic Metabolic Profile (BMP )on 02-01-2024 BUN Normal 7-18 [facility] Comment on above: Result Comment: DUPL ICATE, CMP WAS ALSO ORDERED BY FOR 01/31 0510. OKAY TO CANCEL THIS PER CELESTE Performed By: #### L 500.2500 #### [facility] [address] [place], [address] BUN/CRE Normal 10-20 [facility] Comment on above: Result Comment: SKYLER ICATE, CMP WAS ALSO ORDERED BY FOR 01/31 555. OKAY TO CANCEL THIS PER CELESTE Performed By: #### L 500.2500 #### [facility] [address] [place], [address] CA,Total Normal 8.5-10.1 [facility] Comment on above: Result Comment: ROXANEL ICATE, CMP WAS ALSO ORDERED BY FOR 01/31 555. OKAY TO CANCEL THIS PER CELESTE Performed By: #### L 500.2500 #### [facility] [address] [place], [address] CL Normal 98-107 [facility] Comment on above: Result Comment: SKYLER ICATE, CMP WAS ALSO ORDERED BY FOR 01/31 555. OKAY TO CANCEL THIS PER CELESTE Performed By: #### L 500.2500 #### [facility] [address] [place], [address] CO2 Normal 21.0-32.0 [facility] Comment on above: Result Comment: ROXANEL ICATE, CMP WAS ALSO ORDERED BY FOR 01/31 555. OKAY TO CANCEL THIS PER CELESTE Performed By: #### L 500.2500 #### [facility] [address] [place], [address] CREAT,SERUM Normal 0.70-1.30 [facility] Comment on above: Result Comment: ROXANEL ICATE, CMP WAS ALSO ORDERED BY FOR 01/31 555. OKAY TO CANCEL THIS PER CELESTE Performed By: #### L 500.2500 #### [facility] [address] [place], [address] EST GFR Normal >60 [facility] Comment on above: Result Comment: SKYLER ICATE, CMP WAS ALSO ORDERED BY FOR 01/31 555. OKAY TO CANCEL THIS PER CELESTE Performed By: #### L 500.2500 #### [facility] [address] [place], [address] EST GFR - AA Normal >60 [facility] Comment on above: Result Comment: SKYLER MOORE, CMP WAS ALSO ORDERED BY FOR 01/31 555. OKAY TO CANCEL THIS PER CELESTE Performed By: #### L 500.2500 #### [facility] [address] [place], [address] GAP Normal 5-15 [facility] Comment on above: Result Comment: SKYLER ICATE, CMP WAS ALSO ORDERED BY FOR 01/31 555. OKAY TO CANCEL THIS PER CELESTE Performed By: #### L 500.2500 #### [facility] [address] [place], [address] GLU Normal 74-106 [facility] Comment on above: Result Comment: SKYLER ICATE, CMP WAS ALSO ORDERED BY FOR 01/31 555. OKAY TO CANCEL THIS PER CELESTE Performed By: #### L 500.2500 #### [facility] [address] [place], [address] Potassium Normal 3.5-5.1 [facility] Comment on above: Result Comment: SKYLER ICATE, CMP WAS ALSO ORDERED BY FOR 01/31 555. OKAY TO CANCEL THIS PER CELESTE Performed By: #### L 500.2500 #### [facility] [address] [place], [address] Basic Metabolic Profile (BMP) Normal 136-145 [facility] Comment on above: Result Comment: SKYLER ICATE, CMP WAS ALSO ORDERED BY FOR 01/31 555. OKAY TO CANCEL THIS PER CELESTE Performed By: #### L 500.2500 #### [facility] [address] [place], [address] CBC W/Diff, Automatedon 09-0 9-4 Absolute Lymph 2.23 X10 3/uL Normal 0.83-4.51 [facility] Comment on above: Performed By: #### L 3890.6300, L3890.6100, L3890.6200 #### [facility] [address] [place], [address] Absolute Neut 5.4 X10 3/uL Normal 2.0-7.7 [facility] Comment on above: Performed By: #### L 3890.6300, L3890.6100, L3890.6200 #### [facility] [address] [place], [address] Basophils/100 WBC (Bld) 0.5 % Normal 0-1 [facility] Comment on above: Performed By: #### L 3890.6300, L3890.6100, L3890.6200 #### [facility] [address] [place], [address] Eosinophils/100 WBC (Bld) 1.4 % Normal 0-5 [facility] Comment on above: Performed By: #### L 3890.6300, L3890.6100, L3890.6200 #### [facility] [address] [place], [address] Erythrocyte distribution width (RBC) [Ratio] 13.3 % Normal 11.6-14.6 [facility] Comment on above: Performed By: #### L 3890.6300, L3890.6100, L3890.6200 #### [facility] [address] [place], [address] Hematocrit (Bld) [Volume fraction] 32.2 % Low 40-54 [facility] Comment on above: Performed By: #### L 3890.6300, L3890.6100, L3890.6200 #### [facility] [address] [place], [address] Hemoglobin (Bld) [Mass/Vol] 11.4 g/dL Low 13.0-16.5 [facility] Comment on above: Performed By: #### L 3890.6300, L3890.6100, L3890.6200 #### [facility] [address] [place], [address] IG% 0.200 Normal 0.0-0.9 [facility] Comment on above: Result Comment: IG% - Immature Granulocytes (promyelocytes, myelocytes and metamyelocytes) > 1% indicates that a LEFT SHIFT is Present. Performed By: #### L 3890.6300, L3890.6100, L3890.6200 #### [facility] [address] [place], [address] Lymphocytes/100 WBC (Bld) 26.4 % Normal 19-41 [facility] Comment on above: Performed By: #### L 3890.6300, L3890.6100, L3890.6200 #### [facility] [address] [place], [address] MCH (RBC) [Entitic mass] 38.3 pg High 27.0-32.0 [facility] Comment on above: Performed By: #### L 3890.6300, L3890.6100, L3890.6200 #### [facility] [address] [place], [address] MCHC (RBC) [Mass/Vol] 35.4 g/dL Normal 32-36 [facility] Comment on above: Performed By: #### L 3890.6300, L3890.6100, L3890.6200 #### [facility] [address] [place], [address] MCV (RBC) [Entitic vol] 108.1 fL High 80-94 [facility] Comment on above: Performed By: #### L 3890.6300, L3890.6100, L3890.6200 #### [facility] [address] [place], [address] Monocytes/100 WBC (Bld) 7.9 % Normal 0-10 [facility] Comment on above: Performed By: #### L 3890.6300, L3890.6100, L3890.6200 #### [facility] [address] [place], [address] Neutrophils/100 WBC (Bld) 63.6 % Normal 47-70 [facility] Comment on above: Performed By: #### L 3890.6300, L3890.6100, L3890.6200 #### [facility] [address] [place], [address] Nucleated RBC (Bld) [#/Vol] 0 10*3/uL Normal 0-5 [facility] Comment on above: Performed By: #### L 3890.6300, L3890.6100, L3890.6200 #### [facility] [address] [place], [address] Platelet mean volume (Bld) [Entitic vol] 10.4 fL Normal 6.2-12.0 [facility] Comment on above: Performed By: #### L 3890.6300, L3890.6100, L3890.6200 #### [facility] [address] [place], [address] Platelets (Bld) [#/Vol] 210 10*3/uL Normal 150-450 [facility] Comment on above: Performed By: #### L 3890.6300, L3890.6100, L3890.6200 #### [facility] [address] [place], [address] RBC (Bld) [#/Vol] 2.98 10*6/uL Low 4.6-6.2 [facility] Comment on above: Performed By: #### L 3890.6300, L3890.6100, L3890.6200 #### [facility] [address] [place], [address] RDW SD 52.9 fl High 35.1-43.9 [facility] Comment on above: Performed By: #### L 3890.6300, L3890.6100, L3890.6200 #### [facility] [address] [place], [address] WBC (Bld) [#/Vol] 8.4 10*3/uL Normal 4.4-11.0 [facility] Comment on above: Performed By: #### L 3890.6300, L3890.6100, L3890.6200 #### [facility] [address] [place], [address] Comprehensive Metabolic Prof [facility] 02-01-2024 Albumin [Mass/Vol] 1.6 g/dL Low 3.2-5.0 [facility] Comment on above: Performed By: #### L 3890.6300, L3890.6100, L3890.6200 #### [facility] [address] [place], [address] Albumin/Globulin [Mass ratio] 0.5 {ratio} Low 0.9-2.4 [facility] Comment on above: Performed By: #### L 3890.6300, L3890.6100, L3890.6200 #### [facility] [address] [place], [address] ALK P 126 U/L High 45-117 [facility] Comment on above: Performed By: #### L 3890.6300, L3890.6100, L3890.6200 #### [facility] [address] [place], [address] ALT [Catalytic activity/Vol] 16 U/L Normal 16-61 [facility] Comment on above: Performed By: #### L 3890.6300, L3890.6100, L3890.6200 #### [facility] [address] [place], [address] AST [Catalytic activity/Vol] 25 U/L Normal 15-37 [facility] Comment on above: Performed By: #### L 3890.6300, L3890.6100, L3890.6200 #### [facility] [address] [place], [address] Bilirubin [Mass/Vol] 1.40 mg/dL High 0.20-1.00 [facility] Comment on above: Result Comment: For patients on eltrombopag therapy, use of Dimension Freedom TBIL is not recommended. Performed By: #### L 3890.6300, L3890.6100, L3890.6200 #### [facility] [address] [place], [address] BUN/CRE 8.9 RATIO Low 10-20 [facility] Comment on above: Performed By: #### L 3890.6300, L3890.6100, L3890.6200 #### [facility] [address] [place], [address] CA,Total 8.3 mg/dL Low 8.5-10.1 [facility] Comment on above: Performed By: #### L 3890.6300, L3890.6100, L3890.6200 #### [facility] [address] [place], [address] Chloride [Moles/Vol] 94 mmol/L Low 98-107 [facility] Comment on above: Performed By: #### L 3890.6300, L3890.6100, L3890.6200 #### [facility] [address] [place], [address] CO2 [Moles/Vol] 34.0 mmol/L High 21.0-32.0 [facility] Comment on above: Performed By: #### L 3890.6300, L3890.6100, L3890.6200 #### [facility] [address] [place], [address] Creatinine [Mass/Vol] 0.56 mg/dL Low 0.70-1.30 [facility] Comment on above: Result Comment: The validity of the calculated GFR GFRAA in patients over 70 years has not been determined. Clinical correlation is essential. Performed By: #### L 3890.6300, L3890.6100, L3890.6200 #### [facility] [address] [place], [address] ECRCL 148.46 ml/min Normal [facility] Comment on above: Performed By: #### L 3890.6300, L3890.6100, L3890.6200 #### [facility] [address] [place], [address] EST GFR - AA 192 mL/min Normal >60 [facility] Comment on above: Result Comment: Afri can Anguillan GFR Calc Performed By: #### L 3890.6300, L3890.6100, L3890.6200 #### [facility] [address] [place], [address] GAP 4 Low 5-15 [facility] Comment on above: Performed By: #### L 3890.6300, L3890.6100, L3890.6200 #### [facility] [address] [place], [address] GFR/1.73 sq M.predicted among non-blacks MDRD (S/P/Bld) [Vol rate/Area] 159 mL/min/{1.73_m2} Normal >60 [facility] Comment on above: Result Comment: Non- GFR Calc Performed By: #### L 3890.6300, L3890.6100, L3890.6200 #### [facility] [address] [place], [address] Globulin (S) [Mass/Vol] 3.2 g/dL Normal 2.2-4.2 [facility] Comment on above: Performed By: #### L 3890.6300, L3890.6100, L3890.6200 #### [facility] [address] [place], [address] Glucose [Mass/Vol] 102 mg/dL Normal 74-106 [facility] Comment on above: Result Comment: Fast ing Glucose result from 100 to 125 mg/dL suggests IMPAIRED HOMEOSTASIS per A.D.A. criteria. Performed By: #### L 3890.6300, L3890.6100, L3890.6200 #### [facility] [address] [place], [address] Potassium [Moles/Vol] 3.4 mmol/L Low 3.5-5.1 [facility] Comment on above: Performed By: #### L 3890.6300, L3890.6100, L3890.6200 #### [facility] [address] [place], [address] Sodium [Moles/Vol] 132 mmol/L Low 136-145 [facility] Comment on above: Performed By: #### L 3890.6300, L3890.6100, L3890.6200 #### [facility] [address] [place], [address] T PROT 4.8 g/dL Low 6.4-8.2 [facility] Comment on above: Performed By: #### L 3890.6300, L3890.6100, L3890.6200 #### [facility] [address] [place], [address] Urea nitrogen [Mass/Vol] 5 mg/dL Low 7-18 [facility] Comment on above: Performed By: #### L 3890.6300, L3890.6100, L3890.6200 #### [facility] [address] [place], [place], [address] Hepatitis B Surface Antibody on 02-01-2024 HEP B Surf Ab Non-Reactive Normal [facility] Comment on above: Order Comment: Reaso n for Exam: ascites Reason for Exam: Hepatitis Screen Result Comment: Non Reactive: Inconsistent with immunity less than <10 mIU/mL Reactive: Consistent with immunity greater than or equal to 10 mIU/mL Performed By: #### L 3890.6300, L3890.6100, L3890.6200 #### [facility] [address] [facility] [place], [address] Hepatitis B Surface Antigeno n 02-01-2024 HEP B Surf Ag Non-Reactive Normal Nonreactive [facility] Comment on above: Order Comment: Reaso n for Exam: ascites Reason for Exam: Hepatitis Screen Performed By: #### L 3890.6300, L3890.6100, L3890.6200 #### [facility] [address] [facility] [place], [place], [address] Hepatitis C Antibodyon 01-31 Hepatitis C AB Non-Reactive Normal Nonreactive [facility] Comment on above: Order Comment: Reaso n for Exam: ascites Reason for Exam: Hepatitis Screen Result Comment: Non Reactive: < 0.8 Equivocal: >/= 0.8 to < 1.0 Reactive: >/= 1.0 The CDC requires that a reactive/equivocal HCV antibody result be sent out for confirmation. HCV Quant by PCR testing. Performed By: #### L 3890.6300, L3890.6100, L3890.6200 #### [facility] [address] [place], [address] 12 Lead EKGon 09-08-2024 12 Lead EKG [facility] [address] [place] [address] 12 Lead EKG 01/31/24 1808 MR#: [id number] Acct: [id number] Name: NARCISO GLEZ Rep #: [id number] : 1965 58 From: Tim Pandya MD Attending Dr: Dr. Ramakrishna Bower DO Status: A DM IN Ordering Dr: Omar Pressley MD Date: 01/31/24 Location: [facility]3 Sex: M C Admitted: 01/31/24 Test Reason [...] consider lateral ischemia Abnormal ECG Confirmed by XAVIER IRAHETA, TIM ([id number]), publications editor ROYA LANDEROS ([id number]) on 02/01/2024 2:49:48 PM Referred By: Confirmed By:TIM PANDYA MD 02/01/24 1449 Date Tim Pandya MD CC: Dr. Omar Pressley MD; Dr. Ramakrishna Bower DO; No Primary Care Physician Signed Normal [facility] Abdomen/Pelvis W IV Cont ONL Yon 01-31-2024 Abdomen/Pelvis W IV Cont ONLY [facility] Services [address] [place] [address] Abdomen/Pelvis W IV Cont ONLY MR#: [id number] Acct: [id number] Name: NARCISO GLEZ Rep #: [id number] : 1965 M 58 From: Rubens Gracia PCP: Care Physician,No Primary Status: REG ER Study: Abdomen/Pelvis W IV Cont ONLY Date of Exam: Exam# [id number] Ordering Dr: Omar Pressley MD :[id number] STUDY: CT Abdomen And Pelvis W/ Contrast [...] Omar Pressley MD; No Primary Care Physician Can Piler: Signed Normal [facility] Albumin, Serumon 01-31-2024 Albumin [Mass/Vol] 1.9 g/dL Low 3.2-5.0 [facility] Comment on above: Performed By: #### L 3890.6300, L3890.6100, L3890.6200 #### [facility] [address] [place], [address] Ammoniaon 01-31-2024 Ammonia (P) [Moles/Vol] 11.0 umol/L Normal 11-32 [facility] Comment on above: Performed By: #### L 3800.0050, L503.5510, L501.2300, L501.5200 #### [facility] [address] [place], [address] BNP,B-Type NATRIURETIC PEPTI Pawan 01-31-2024 Natriuretic peptide B (Bld) [Mass/Vol] 108.6 pg/mL High 0-100 [facility] Comment on above: Performed By: #### L 3890.6300, L3890.6100, L3890.6200 #### [facility] [address] [place], [address] Basic Metabolic Profile (BMP )on 01-31-2024 BUN/CRE 6.3 RATIO Low 10-20 [facility] Comment on above: Order Comment: Reaso n for Exam: ascites Reason for Exam: Hepatitis Screen Performed By: #### L 3890.6300, L3890.6100, L3890.6200 #### [facility] [address] [place], [address] CA,Total 9.1 mg/dL Normal 8.5-10.1 [facility] Comment on above: Order Comment: Reaso n for Exam: ascites Reason for Exam: Hepatitis Screen Performed By: #### L 3890.6300, L3890.6100, L3890.6200 #### [facility] [address] [facility] [address] Chloride [Moles/Vol] 93 mmol/L Low 98-107 [facility] Comment on above: Order Comment: Reaso n for Exam: ascites Reason for Exam: Hepatitis Screen Performed By: #### L 3890.6300, L3890.6100, L3890.6200 #### [facility] [address] [facility] [address] CO2 [Moles/Vol] 33.0 mmol/L High 21.0-32.0 [facility] Comment on above: Order Comment: Reaso n for Exam: ascites Reason for Exam: Hepatitis Screen Performed By: #### L 3890.6300, L3890.6100, L3890.6200 #### [facility] [address] [facility] [address] Creatinine [Mass/Vol] 0.79 mg/dL Normal 0.70-1.30 [facility] Comment on above: Order Comment: Reaso n for Exam: ascites Reason for Exam: Hepatitis Screen Result Comment: The validity of the calculated GFR GFRAA in patients over 70 years has not been determined. Clinical correlation is essential. Performed By: #### L 3890.6300, L3890.6100, L3890.6200 #### [facility] [address] [facility] [address] ECRCL 105.24 ml/min Normal [facility] Comment on above: Order Comment: Reaso n for Exam: ascites Reason for Exam: Hepatitis Screen Performed By: #### L 3890.6300, L3890.6100, L3890.6200 #### [facility] [address] [facility] [address] EST GFR - AA 130 mL/min Normal >60 [facility] Comment on above: Order Comment: Reaso n for Exam: ascites Reason for Exam: Hepatitis Screen Result Comment: Afri can Anguillan GFR Calc Performed By: #### L 3890.6300, L3890.6100, L3890.6200 #### [facility] [address] [place], [address] GAP 7 Normal 5-15 [facility] Comment on above: Order Comment: Reaso n for Exam: ascites Reason for Exam: Hepatitis Screen Performed By: #### L 3890.6300, L3890.6100, L3890.6200 #### [facility] [address] [place], [address] GFR/1.73 sq M.predicted among non-blacks MDRD (S/P/Bld) [Vol rate/Area] 107 mL/min/{1.73_m2} Normal >60 [facility] Comment on above: Order Comment: Reaso n for Exam: ascites Reason for Exam: Hepatitis Screen Result Comment: Non- GFR Calc Performed By: #### L 3890.6300, L3890.6100, L3890.6200 #### [facility] [address] [place], [address] Glucose [Mass/Vol] 123 mg/dL High 74-106 [facility] Comment on above: Order Comment: Reaso n for Exam: ascites Reason for Exam: Hepatitis Screen Result Comment: Fast ing Glucose result from 100 to 125 mg/dL suggests IMPAIRED HOMEOSTASIS per A.D.A. criteria. Performed By: #### L 3890.6300, L3890.6100, L3890.6200 #### [facility] [address] [place], [address] Potassium [Moles/Vol] 2.9 mmol/L Low 3.5-5.1 [facility] Comment on above: Order Comment: Reaso n for Exam: ascites Reason for Exam: Hepatitis Screen Performed By: #### L 3890.6300, L3890.6100, L3890.6200 #### [facility] [address] [place], [address] Sodium [Moles/Vol] 133 mmol/L Low 136-145 [facility] Comment on above: Order Comment: Reaso n for Exam: ascites Reason for Exam: Hepatitis Screen Performed By: #### L 3890.6300, L3890.6100, L3890.6200 #### [facility] [address] [place], [address] Urea nitrogen [Mass/Vol] 5 mg/dL Low 7-18 [facility] Comment on above: Order Comment: Reaso n for Exam: ascites Reason for Exam: Hepatitis Screen Performed By: #### L 3890.6300, L3890.6100, L3890.6200 #### [facility] [address] [place], [address] CBC W/Diff, Automatedon 09-0 8-2023 Absolute Lymph 2.77 X10 3/uL Normal 0.83-4.51 [facility] Comment on above: Performed By: #### L 100.0100, L300.4310, L300.3900, L503.6620 #### [facility] [address] [place], [address] Absolute Neut 6.9 X10 3/uL Normal 2.0-7.7 [facility] Comment on above: Performed By: #### L 100.0100, L300.4310, L300.3900, L503.6620 #### [facility] [address] [place], [address] Basophils/100 WBC (Bld) 0.4 % Normal 0-1 [facility] Comment on above: Performed By: #### L 100.0100, L300.4310, L300.3900, L503.6620 #### [facility] [address] [place], [address] Eosinophils/100 WBC (Bld) 0.7 % Normal 0-5 [facility] Comment on above: Performed By: #### L 100.0100, L300.4310, L300.3900, L503.6620 #### [facility] [address] [place], [address] Erythrocyte distribution width (RBC) [Ratio] 13.3 % Normal 11.6-14.6 [facility] Comment on above: Performed By: #### L 100.0100, L300.4310, L300.3900, L503.6620 #### [facility] [address] [place], [address] Hematocrit (Bld) [Volume fraction] 37.0 % Low 40-54 [facility] Comment on above: Performed By: #### L 100.0100, L300.4310, L300.3900, L503.6620 #### [facility] [address] [place], [address] Hemoglobin (Bld) [Mass/Vol] 13.1 g/dL Normal 13.0-16.5 [facility] Comment on above: Performed By: #### L 100.0100, L300.4310, L300.3900, L503.6620 #### [facility] [address] [place], [address] IG% 0.400 Normal 0.0-0.9 [facility] Comment on above: Result Comment: IG% - Immature Granulocytes (promyelocytes, myelocytes and metamyelocytes) > 1% indicates that a LEFT SHIFT is Present. Performed By: #### L 100.0100, L300.4310, L300.3900, L503.6620 #### [facility] [address] [place], [address] Lymphocytes/100 WBC (Bld) 26.0 % Normal 19-41 [facility] Comment on above: Performed By: #### L 100.0100, L300.4310, L300.3900, L503.6620 #### [facility] [address] [place], [address] MCH (RBC) [Entitic mass] 38.1 pg High 27.0-32.0 [facility] Comment on above: Performed By: #### L 100.0100, L300.4310, L300.3900, L503.6620 #### [facility] [address] [place], [address] MCHC (RBC) [Mass/Vol] 35.4 g/dL Normal 32-36 [facility] Comment on above: Performed By: #### L 100.0100, L300.4310, L300.3900, L503.6620 #### [facility] [address] [place], [address] MCV (RBC) [Entitic vol] 107.6 fL High 80-94 [facility] Comment on above: Performed By: #### L 100.0100, L300.4310, L300.3900, L503.6620 #### [facility] [address] [place], [address] Monocytes/100 WBC (Bld) 8.3 % Normal 0-10 [facility] Comment on above: Performed By: #### L 100.0100, L300.4310, L300.3900, L503.6620 #### [facility] [address] [place], [address] Neutrophils/100 WBC (Bld) 64.2 % Normal 47-70 [facility] Comment on above: Performed By: #### L 100.0100, L300.4310, L300.3900, L503.6620 #### [facility] [address] [place] [place], [address] Nucleated RBC (Bld) [#/Vol] 0 10*3/uL Normal 0-5 [facility] Comment on above: Performed By: #### L 100.0100, L300.4310, L300.3900, L503.6620 #### [facility] [address] [place], [address] Platelet mean volume (Bld) [Entitic vol] 10.6 fL Normal 6.2-12.0 [facility] Comment on above: Performed By: #### L 100.0100, L300.4310, L300.3900, L503.6620 #### [facility] [address] [place], [address] Platelets (Bld) [#/Vol] 285 10*3/uL Normal 150-450 [facility] Comment on above: Performed By: #### L 100.0100, L300.4310, L300.3900, L503.6620 #### [facility] [address] [place], [address] RBC (Bld) [#/Vol] 3.44 10*6/uL Low 4.6-6.2 [facility] Comment on above: Performed By: #### L 100.0100, L300.4310, L300.3900, L503.6620 #### [facility] [address] [place], [address] RDW SD 52.8 fl High 35.1-43.9 [facility] Comment on above: Performed By: #### L 100.0100, L300.4310, L300.3900, L503.6620 #### [facility] [address] [place], [address] WBC (Bld) [#/Vol] 10.7 10*3/uL Normal 4.4-11.0 [facility] Comment on above: Performed By: #### L 100.0100, L300.4310, L300.3900, L503.6620 #### [facility] [address] [place], [address] Chest 1 View (Portable)on Chest 1 View (Portable) [facility] Imaging Services [address] [place], [place] [address] Chest 1 View (Portable) MR#: [id number] Acct: [id number] Name: NARCISO GLEZ Rep #: [id number] : 1965 M 58 From: Rubens Gracia PCP: Dr. Slim Guadalupe MD Status: PRE ER Study: Chest 1 View (Portable) Date of Exam: 01/31/24 Exam# [id number] Ordering Dr: Omar Pressley MD :[id number] STUDY: XR Chest 1 View 01/31/2024 6:02 [...] Slim Guadalupe MD; Dr. Omar Pressley MD Can Piler: Signed Normal [facility] Emergency Department Summary on 01-31-2024 Emergency Department Summary [facility] Medical Records Department [address] [place] [address] Emergency Department Summary 01/31/24 MR#: [id number] Acct: [id number] Name: NARCISO GLEZ Rep #: [id number] : 1965 58 From: Omar Pressley MD PCP: Care Physician,No Primary Status:ADM IN Location: [facility]3 UI324-6 HPI History of Present Illness Chief Complaint: [...] lower extremities. Nontender. Dorsi plantarflexion intact. Normal lobster catcher strength. He is awake and alert. Answering [...] present Back/Spin (more content not included)... Normal [facility] H AND P Exam - Hospitaliston 01-31-2024 H&P Exam - Hospitalist [facility] Medical Records Department [address] [place] [address] H P Exam - Hospitalist 01/31/242033 MR#: [id number] Acct: [id number] Name: NARCISO GLEZ Rep #: [id number] : 1965 58 From: Earnestine Contreras MD PCP: Care Physician,No Primary Status:ADM IN Location: [facility] [id number] HPI - General General Date of Admission: 01/31/24 Date of Service: 01/31/24 Chief Complaint: Worsening edema, abdominal distention/pain. 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 [facility] History of venous thromboembolism Alcohol [...] Temperature 97. (more content not included)... Normal [facility] L501.4020on 01-31-2024 TROPONIN-I HS 6 pg/mL Normal 3.0-78.0 [facility] Comment on above: Order Comment: Reaso n for Exam: ascites Reason for Exam: Hepatitis Screen Result Comment: Glenn foster Note: New Test Units and Gender Specific Reference Ranges. For more information see Policy Stat Procedure Freedom High Sensitivity Troponin (TNIH) and attachments. Performed By: #### L 3890.6300, L3890.6100, L3890.6200 #### [facility] [address] [place], [place], [address] Liver Profileon 01-31-2024 Albumin [Mass/Vol] 2.0 g/dL Low 3.2-5.0 [facility] Comment on above: Order Comment: Reaso n for Exam: ascites Reason for Exam: Hepatitis Screen Performed By: #### L 3890.6300, L3890.6100, L3890.6200 #### [facility] [address] [place], [place], [address] ALK P 155 U/L High 45-117 [facility] Comment on above: Order Comment: Reaso n for Exam: ascites Reason for Exam: Hepatitis Screen Performed By: #### L 3890.6300, L3890.6100, L3890.6200 #### [facility] [address] [place], [address] ALT [Catalytic activity/Vol] 20 U/L Normal 16-61 [facility] Comment on above: Order Comment: Reaso n for Exam: ascites Reason for Exam: Hepatitis Screen Performed By: #### L 3890.6300, L3890.6100, L3890.6200 #### [facility] [address] [place], [address] AST [Catalytic activity/Vol] 37 U/L Normal 15-37 [facility] Comment on above: Order Comment: Reaso n for Exam: ascites Reason for Exam: Hepatitis Screen Performed By: #### L 3890.6300, L3890.6100, L3890.6200 #### [facility] [address] [place], [address] Bilirubin [Mass/Vol] 1.60 mg/dL High 0.20-1.00 [facility] Comment on above: Order Comment: Reaso n for Exam: ascites Reason for Exam: Hepatitis Screen Result Comment: For patients on eltrombopag therapy, use of Dimension Freedom TBIL is not recommended. Performed By: #### L 3890.6300, L3890.6100, L3890.6200 #### [facility] [address] [place], [address] Bilirubin.direct [Mass/Vol] 0.64 mg/dL High 0.00-0.30 [facility] Comment on above: Order Comment: Reaso n for Exam: ascites Reason for Exam: Hepatitis Screen Performed By: #### L 3890.6300, L3890.6100, L3890.6200 #### [facility] [address] [place], [address] Globulin (S) [Mass/Vol] 3.7 g/dL Normal 2.2-4.2 [facility] Comment on above: Order Comment: Reaso n for Exam: ascites Reason for Exam: Hepatitis Screen Performed By: #### L 3890.6300, L3890.6100, L3890.6200 #### [facility] [address] [place], [address] T PROT 5.7 g/dL Low 6.4-8.2 [facility] Comment on above: Order Comment: Reaso n for Exam: ascites Reason for Exam: Hepatitis Screen Performed By: #### L 3890.6300, L3890.6100, L3890.6200 #### [facility] [address] [place], [address] Magnesiumon 01-31-2024 Magnesium [Mass/Vol] 1.4 mg/dL Low 1.6-2.6 [facility] Comment on above: Order Comment: Comme nts: May add to ED labs Comments: may add to ED labs Performed By: #### L 3800.0050, L503.5510, L501.2300, L501.5200 #### [facility] [address] [place], [address] Partial Thromboplast Timeon 01-31-2024 aPTT Coag (Bld) [Time] 29.9 s Normal 24.1-36.2 [facility] Comment on above: Performed By: #### L 3890.6300, L3890.6100, L3890.6200 #### [facility] [address] [place], [address] Phosphoruson 01-31-2024 Phosphate [Mass/Vol] 2.5 mg/dL Normal 2.5-4.9 [facility] Comment on above: Order Comment: Comme nts: May add to ED labs Comments: may add to ED labs Performed By: #### L 3800.0050, L503.5510, L501.2300, L501.5200 #### [facility] [address] [place], [address] Prothrombin Time w/INRon INR Coag (PPP) [Relative time] 1.2 {INR} Normal [facility] Comment on above: Performed By: #### L 100.0100, L300.4310, L300.3900, L503.6620 #### [facility] [address] [place], [address] PT Coag (PPP) [Time] 15.4 s High 11.7-14.9 [facility] Comment on above: Performed By: #### L 100.0100, L300.4310, L300.3900, L503.6620 #### [facility] [address] [place], [address] Venous Duplex US - Ai Extre mon 01-31-2024 Venous Duplex US - Ai Extrem [facility] [address] [place] [address] Venous Duplex US - Ai Extrem 02/01/24 0803 MR#: [id number] Acct: [id number] Name: NARCISO GLEZ Rep #: [id number] : 1965 58 From: Natanael Escamilla MD Attending Dr: Dr. Ramakrishna Bower, DO Status: A DM IN Ordering Dr: Earnestine Contreras MD Date: 01/31/24 Location: NC3 Sex: M C Admitted: 01/31/24 Reason For [...] was called and/or faxed to [facility] medical billing specialist. VL/Venous Duplex US - Ai Extrem Interpretation [...] Contreras Referring Physician: N/A Performed By: Darrin Ramos, Laureen 02/01/241754 Date Natanael Escamilla MD CC: Dr. Earnestine Contreras MD; Dr. Ramakrishna Bower DO; No Primary Care Physician Date Dictated: 02/01/24802 Date Transcribed: 02/01/241754 Can Piler: Signed Normal [facility] MRCP WITH PANCREAS WO and Wi th CONTRASTon 03-13-2022 MRCP WITH PANCREAS WO and With CONTRAST Patient Name: NARCISO GLEZ STUDY: MRCP WITH PANCREAS WO / W CONTRAST; 03/13/2022 5:10 pm INDICATION: r/o choleodocolithiasis E80.6: Hyperbilirubinemia. COMPARISON: February 20, 2022 CT scan abdomen and pelvis ACCESSION NUMBER(S): [id number] ORDERING CLINICIAN: ARNOLD CARBONE TECHNIQUE: MRI PANCREAS; [...] Electronically signed by: DINA WEINSTEIN MD Normal [facility] Tobacco Screening.on 022 Fall risk assessment a) No falls within the last year [facility] Work Phone: Tobacco use status [facility] a) Yes [facility] Work Phone: Initial Visit (General Surge ry)on 03-03-2022 Initial Visit (General Surgery) No report was sent Normal [place] [facility] ABDOMEN AND PELVIS WO CON TRASTon 02-20-2022 CT ABDOMEN AND PELVIS WO CONTRAST Patient Name: NARCISO GLEZ STUDY: CT ABDOMEN AND PELVIS WO CONTRAST; 02/20/2022 4:36 pm INDICATION: bilateral flank pain R10.9: Acute flank pain. COMPARISON: None ACCESSION NUMBER(S): [id number] ORDERING CLINICIAN: SHALOM YOUSIF TECHNIQUE: CT of [...] Electronically signed by: ANTONIO BRIAN MD Normal [facility] CT Abdomen and Pelvis withou t Contraston 02-20-2022 CT Abdomen and Pelvis WO contrast Normal -[facility] Work Phone: [facility] Follow-up visit Diagnoses/Problems Unstable gait (781.2) (R26.81) Hyperbilirubinemia (782.4) (E80.6) Dysuria (788.1) (R30.0) Orders Dysuria Cult, Urine; Status:Active; Requested for:18Feb2022; Urinalysis; Status:Active; Requested for:18Feb2022; Hyperbilirubinemia Hepatic Function Panel; Status:Active; Requested for:20Apr2022; Chief Complaint f/u no concerns. History of [...] Vital Signs Recorded: 18Feb2022 02:05PM Heart Rate96 Utpzgzaz954 Vjczfckan80 Height5 ft 8 in Dznvik294 lb 4.83 oz BMI Iiewufyfei03.68 kg/m2 BSA Calculated1.87 Tobacco Usea) Yes Patient encouraged to stop using tobac (more content not included)... Normal [facility] Tobacco Screening.on 022 Tobacco use status [facility] a) Yes [facility] Work Phone: Tobacco Screening. Yes [facility] Work Phone: Cult, Urineon 01-23-2022 Bacteria identified Cx Nom (U) [facility] Work Phone: UA MICROSCOPICon 01-23-2022 HYALINE CAST 4+ /LPF Abnormal [facility] Comment on above: Performed By: #### U AMIC #### [address] [address] Mucus Ql (Urine sed) 2+ /LPF Normal [facility] Comment on above: Performed By: #### U AMIC #### [address] [address] RBC 1 /HPF Normal 0-5 [facility] Comment on above: Performed By: #### U AMIC #### [address] [address] TRANSITIONAL EPITH.CELLS <1 Normal [facility] Comment on above: Performed By: #### U AMIC #### [address] [address] WBC 4 /HPF Normal 0-5 [facility] Comment on above: Performed By: #### U AMIC #### [place] [id number] URINALYSISon 01-23-2022 Appearance (U) CLEAR Normal CLEAR [facility] Comment on above: Performed By: #### U A #### [address] [address] Bilirubin Ql (U) LARGE(3+) Abnormal NEGATIVE [facility] Comment on above: Performed By: #### U A #### [address] [address] Color (U) ORANGE Normal STRAW,YELLOW [facility] Comment on above: Performed By: #### U A #### [address] [address] Glucose Ql (U) Negative Normal NEGATIVE [facility] Comment on above: Performed By: #### U A #### [address] [address] Hemoglobin Ql (U) Negative Normal NEGATIVE [facility] Comment on above: Performed By: #### U A #### [address] [address] Ketones Ql (U) 25 (1+) Abnormal NEGATIVE [facility] Comment on above: Performed By: #### U A #### [address] [address] Leukocyte esterase Test strip Ql (U) Negative Normal NEGATIVE [facility] Comment on above: Performed By: #### U A #### [address] [address] Nitrite Ql (U) Positive Abnormal NEGATIVE [facility] Comment on above: Performed By: #### U A #### [address] [address] pH (U) 7.0 [pH] Normal 5.0 - 8.0 [facility] Comment on above: Performed By: #### U A #### [address] [address] Protein Ql (U) 30 (1+) Abnormal NEGATIVE [facility] Comment on above: Performed By: #### U A #### [address] [address] Specific gravity (U) [Rel density] 1.015 Normal 1.005 - 1.035 [facility] Comment on above: Performed By: #### U A #### [address] [address] Urobilinogen (U) [Mass/Vol] 2.0 mg/dL High 0.0 - 1.9 [facility] Comment on above: Result Comment: Due [...] urobilinogen. Performed By: #### U A #### [address] [address] URINE CULTURE,BACTERIALon URINE CULTURE,BACTERIAL PATIENT: NARCISO GLEZ [place] [facility] [id number] : 65 AGE: SEX: M ORDERED BY: ORIANA YOUSIF SOURCE: URINE COLLECTED: 01/23/22 15:44 ANTIBIOTICS AT MATTY.: RECEIVED : 01/24/22 00:51 SITE: Clean Catch/Voided R E S U L T S URINE CULTURE,BACTERIAL FINAL 01/24/22 17:42 NO SIGNIFICANT GROWTH. Normal [facility] Comment on above: Performed By: #### U [facility] #### [facility] [address] [place] [address] Urinalysison 01-23-2022 Color (U) ORANGE See Below [facility] Work Phone: Comment on above: Reference Range: STR AW,YELLOW Glucose Ql (U) Negative NEGATIVE [facility] Work Phone: Ketones Ql (U) 25 (1+) Abnormal NEGATIVE [facility] Work Phone: Leukocyte esterase Test strip Ql (U) Negative NEGATIVE [facility] Work Phone: pH (U) 7.0 [pH] 5.0 - 8.0 [facility] Work Phone: Protein (U) [Mass/Vol] 30 (1+) Abnormal NEGATIVE [facility] Work Phone: RBC (U) [#/Vol] Negative NEGATIVE [facility] Work Phone: Specific gravity (U) [Rel density] 1.015 1 See Below [facility] Work Phone: Comment on above: Reference Range: 1.0 05 - 1.035 Urinalysis Positive Abnormal NEGATIVE [facility] Work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 [id number] CC Report to: Date of : 1965 Technologist: Brooklyn Barron RVT Gender: M Technologist 2: Admission Status: Outpatient Location Performed: [facility] Diagnosis/ICD: M79.89-Right leg swelling; M79.604-Pain in right leg; I82.409-Acute embolism and thrombosis of unspecified deep veins of unspecified lower extremity Procedure/CPT: 83180 Peripheral venous duplex scan for DVT Limited-46084 CONCLUSIONS: Right Lower Venous Insufficiency: There is [...] Iliac Yes None CFV Yes None Spontaneous/Phasic [id number] Mery Farris MD Final Normal [facility] VAS LAB Venous Duplex Ultra sound for DVTon 07-24-2021 [facility] Venous Duplex Ultrasound for DVT [facility] Work Phone: Office Visit ([facility] Medicin e)on 07-23-2021 Follow-up visit Diagnoses/Problems DVT (deep venous thrombosis) (453.40) (I82.409) Orders DVT (deep venous thrombosis) VAS LAB Venous Duplex Ultrasound for DVT; Status:Resulted [...] Vitals Vital Signs Recorded: 23Jul2021 04:09PM Heart Esif522 Iuvnrqga738 Dcqyaglig42 Height5 ft 8.5 in Nnilxn750 lb 3.86 oz BMI Sawzruttgm73.71 kg/m2 BSA Calculated1.96 Tobacco Usea) Yes Patient encouraged to stop using tobacco productsYes Physical Exam Mild swelling noticed in his ankle region. No erythema observed this time. Continues have abrasion in the right ankle region, likely secondary to pressure from his footwear. 'Scores and Scales' Signatures Electronically signed by : Oriana Yousif MD MPH; Jul 28 2021 7:05PM EST (Author) Normal [facility] Tobacco Screening.on 022 Tobacco use status CPHS a) Yes [employer] [facility] Work Phone: Tobacco Screening. Yes [employer] [facility] Work Phone: Office Visit ([facility] Medicin e)on 2021 Follow-up visit Diagnoses/Problems Cellulitis of [...] MG Oral Tablet Vitals Vital Signs Recorded: 56Kfe5774 08:39AM Heart Rate92 Sqvkzhke846 Pkalowewf340 Height5 ft 8.5 in Sgwfes880 lb 6.80 oz BMI Umoaojsymw58.59 kg/m2 BSA Calculated1.95 Tobacco Usea) Yes Patient [...] MD MPH; 2021 9:02AM EST (Author) Normal [employer] Tobacco Screening.on 022 Tobacco use status CPHS a) Yes [facility] Work Phone: Tobacco Screening. Yes [facility] Work Phone: VASC LAB Venous Duplex Ultra sound DVTon 05-14-2021 [facility] Venous [place] [address] ext-2528, Vascular Lab Report Lower Venous Duplex Ultrasound Patient Name: NARCISO GLEZ Reading Physician: [id number] Mery Farris MD Study Date: 05/14/2021 Referring Physician: [id number] BAH MRN/PID: [id number] PCP: Accession/Order#: [id number] CC Report to: Date of : 1965 Technologist: Brooklyn Barron RVT Gender: M Technologist 2: Admission Status: Outpatient Location Performed: [facility] Diagnosis/ICD: M79.89-Other specified soft tissue disorders; I82.409-Acute embolism and thrombosis of unspecified deep veins of unspecified lower extremity Procedure/CPT: 60786 Peripheral venous duplex scan for DVT Limited-47012 CONCLUSIONS: Right Lower Venous: There are chronic [...] Iliac Yes None CFV Yes None Spontaneous/Phasic [id number] Mery Farris MD Final Normal [facility] Office Visit (Family Andrey delaney)on 03-12-2021 Follow-up visit Diagnoses/Problems Pedal edema (782.3) [...] Vital Signs Recorded: 12Mar2021 04:53PM Heart Rate88 Mebbthle658 Vbimeugst42 Height5 ft 8.5 in Wxqmrm024 lb 1.79 oz BMI Bzzuniufet59.79 kg/m2 BSA Calculated1.93 Tobacco Usea) Yes Patient [...] Mar 17 2021 9:12AM EST (Author) Normal [employer] Tobacco Screening.on Tobacco use status [facility] a) Yes [facility] Work Phone: Tobacco Screening. Yes [employer] [facility] Work Phone: Tobacco Screening.on 07-12-2 021 Tobacco use status [facility] a) Yes -[facility] Work Phone: Tobacco Screening. Yes -[facility] Work Phone: Tobacco Screening.on 021 Tobacco use status [facility] a) Yes -[facility] Work Phone: BASIC METABOLIC PANELon 10-23 Anion gap [Moles/Vol] 12 mmol/L Normal 10 - 20 [facility] Comment on above: Performed By: #### M G #### [address] [address] Calcium [Mass/Vol] 8.3 mg/dL Low 8.6 - 10.3 [facility] Comment on above: Performed By: #### M G #### [address] [address] Chloride [Moles/Vol] 101 mmol/L Normal 98 - 107 [facility] Comment on above: Performed By: #### M G #### [address] [address] Creatinine [Mass/Vol] 0.72 mg/dL Normal 0.50 - 1.30 [facility] Comment on above: Performed By: #### M G #### [address] [address] GFR- AM. >60 Normal >60 [facility] Comment on above: Result Comment: CALC ULATIONS OF ESTIMATED GFR ARE PERFORMED USING THE MDRD STUDY EQUATION FOR THE IDMS-TRACEABLE CREATININE METHODS. CLIN CHEM 2007;53:766-72 Performed By: #### M G #### [address] [address] GFR-NON AM. >60 Normal >60 [facility] Comment on above: Performed By: #### M G #### [address] [address] Glucose [Mass/Vol] 232 mg/dL High 74 - 99 [facility] Comment on above: Performed By: #### M G #### [address] [address] HCO3 (Bld) [Moles/Vol] 25 mmol/L Normal 21 - 32 [facility] Comment on above: Performed By: #### M G #### [address] [place] [address] Potassium [Moles/Vol] 3.7 mmol/L Normal 3.5 - 5.3 [facility] Comment on above: Performed By: #### M G #### [address] [place] [address] Sodium [Moles/Vol] 134 mmol/L Low 136 - 145 [facility] Comment on above: Performed By: #### M G #### [address] [address] Urea nitrogen [Mass/Vol] 9 mg/dL Normal 6 - 23 [facility] Comment on above: Performed By: #### M G #### [address] [place] [address] CBCon 11-06-2020 Erythrocyte distribution width (RBC) [Ratio] 15.9 % High 11.5 - 14.5 [facility] Comment on above: Performed By: #### C BC #### [address] [place] [address] Hematocrit (Bld) [Volume fraction] 46.0 % Normal 41.0 - 52.0 [facility] Comment on above: Performed By: #### C BC #### [address] [place] [address] Hemoglobin (Bld) [Mass/Vol] 16.2 g/dL Normal 13.5 - 17.5 [facility] Comment on above: Performed By: #### C BC #### [address] [place] [address] MCHC (RBC) [Mass/Vol] 35.2 g/dL Normal 32.0 - 36.0 [facility] Comment on above: Performed By: #### C BC #### [address] [place] [address] MCV (RBC) [Entitic vol] 113 fL High 80 - 100 [facility] Comment on above: Performed By: #### C BC #### [address] [place] [address] NUCLEATED RBC 0.0 /100 WBC Normal 0.0 - 0.0 [facility] Comment on above: Performed By: #### C BC #### [facility] [address] [place] [address] Platelets (Bld) [#/Vol] 154 10*3/uL Normal 150 - 450 [facility] Comment on above: Performed By: #### C BC #### [address] [address] RBC 4.07 x10E12/L Low 4.50 - 5.90 [facility] Comment on above: Performed By: #### C BC #### [facility] [address] [place] [address] WBC (Bld) [#/Vol] 5.4 10*3/uL Normal 4.4 - 11.3 [facility] Comment on above: Performed By: #### C BC #### [address] [address] Daily Progress Note-Interven tional Cardiologyon 11-06-2020 Daily [...] discharged. Objective Data: Objective Information: T PRBPSpO2 Value36.02628724/8594% Date/Time11/06 8: 8: 8: 8: 8:00 Range(36.5C [...] ORIF right hip. The patient presented to [facility] with an extensive right LE [...] Reviewed With: patient Electronic Signatures: Jacki Cui ([employer]ARPS[employer]ER[employer]CRETE PRODUCTS DISPATCHER) (Signed 06-Nov-2020 13:56) Authored: Service, Subjective Data, Objective Data, Assessment and Plan, Note Completion Last Updated: 06-Nov-2020 13:56 by Jacki Cui ([employer]AR[employer]CR[employer]E [employer]ODU[employer] DISPATCHER) Normal [facility] Discharge Weezyow4ty 021 Discharge Profile2 Discharge Orders: Anticipated Discharge Date: Anticipated Discharge [id number] Problem List: Medical History: DVT (deep venous thrombosis): Catalog Name: Acute embolism and thrombosis of unspecified deep veins of unspecified lower extremity Hospital Providers: Provider RoleProvider Name Socrates Mays Jun PrimaryMallapareddi, Arun Nag S DNAR: DNAR Status: none Activity: activity as [...] abuse, and s/p ORIF R hip in [place] 05/18/20 presents with an extensive R LE [...] Medication Reconciliation and Orders Completedby Physician Reviewing Hortencia Choudhury MD (Resident) at 15-Alvaro-2021 11:24:19 Appointments: Follow-Up Appointment 01: Physician/Dept/ServiceDr. Mcneil Reason for ReferralHospital f/u Scheduled Date/Lkmy18-Ybj-2191 16:00 [address], [address], [place]. [address] Phone [phone] CommentsOrder received after discharge Follow-Up Appointment 02: Physician/Dept/ServiceDr. Bah with ultrasound of right leg Scheduled Date/Egkv00-Cbd-1307 01:00 [facility], [address] [place] [address] Phone [phone] Bah and ultrasound completed 05/02/21 at 1:00PM as scheduled. Electronic Signatures: Jacki Cui ([employer]AR[employer]E [employer]ODU[employer] DISPATCHER) (Signed 06-Nov-2020 11:39) Authored: Discharge Orders, Appointments Verenice Mckeon (PT SVS REP) (Signed 06-Nov-2020 16:30) Authored: Discharge Orders, Appointments Maritza Choudhury ( (Resident)) (Signed 06-Nov-2020 11:24) Authored: Discharge Orders, Heart Failure, Vascular, Hospital Course (Home Care/Gold Form), Provider FINAL REVIEW of Orders, Appointments, Gold Form - Ship Boss Summary Last Updated: 06-Nov-2020 16:30 by Verenice Mckeon (PT SVS REP) Normal [facility] HEPARIN ASSAY,UFHon 11-07-19 21 HEPARIN ASSAY,UFH Canceled Normal [facility] Comment on above: Order Comment: TEST HEPARIN ASSAY,UFH WAS CANCELLED, 11/06/2020 09:03 Result Comment: The therapeutic reference range for UFH may be either 0.3-0.6 IU/mL or 0.3-0.7 IU/mL based on the clinical setting for anticoagulant therapy and the associated nomogram used. For heparin dosing guidelines based on clinical scenario and Heparin Assay results, please refer to local Pharmacy and the [facility] Guidelines for Anticoagulation therapy available on the [facility] intranet at: [email or web address] [email or web address]/Pharmacy/Pages/[place] itals_Guid elines_for_Anticoagu.aspx Performed By: #### H AUF #### [facility] [address] [place] [address] HEPARIN ASSAY,UFH 0.6 IU/mL Normal [facility] Comment on above: Result Comment: The therapeutic reference range for UFH may be either 0.3-0.6 IU/mL or 0.3-0.7 IU/mL based on the clinical setting for anticoagulant therapy and the associated nomogram used. For heparin dosing guidelines based on clinical scenario and Heparin Assay results, please refer to local Pharmacy and the [facility] Guidelines for Anticoagulation therapy available on the [facility] intranet at: https://[email or web address]/Pharmacy/Pages/[place] itals_Guid elines_for_Anticoagu.aspx Performed By: #### H AUF #### [address] [address] HEPARIN ASSAY,UFH 1.1 IU/mL Invalid Interpretation Code [facility] Comment on above: Order Comment: Gong d- RB to PATY, 11/05/2020 23:04 Result Comment: The therapeutic reference range for UFH may be either 0.3-0.6 IU/mL or 0.3-0.7 IU/mL based on the clinical setting for anticoagulant therapy and the associated nomogram used. For heparin dosing guidelines based on clinical scenario and Heparin Assay results, please refer to local Pharmacy and the [facility] Guidelines for Anticoagulation therapy available on the [facility] intranet at: https://[email or web address]/Pharmacy/Pages/[place] ital_Guid elines_for_Anticoagu.aspx Called- RB to PATY, 11/05/2020 23:04 Performed By: #### B MP #### [address] [address] Heparin assay, UFHon 021 Heparin unfractionated Chromogenic method Qn (PPP) 0.6 {IU/mL} [facility] Work Phone: Comment on above: The therapeutic refe rence range for UFH may be either 0.3-0.6 IU/mL or 0.3-0.7 IU/mL based on the clinical setting for anticoagulant therapy and the associated nomogram used. For heparin dosing guidelines based on clinical scenario and Heparin Assay results, please refer to local Pharmacy and the [facility] Guidelines for Anticoagulation therapy available on the [facility] intranet at:[email or web address]/Pharmacy/Pages/[place]_ ospitals_Guidelines_for_Anticoagu.aspx Laboratory - Chemistry and C hemistry - challengeon 11-06-2020 Anion gap [Moles/Vol] 12 mmol/L 10 - 20 [facility] Work Phone: Calcium [Mass/Vol] 8.3 mg/dL below low threshold 8.6 - 10.3 [facility] Work Phone: Chloride [Moles/Vol] 101 mmol/L 98 - 107 [facility] Work Phone: CO2 [Moles/Vol] 25 mmol/L 21 - 32 [facility] Work Phone: Creatinine [Mass/Vol] 0.72 mg/dL See Below [facility] Work Phone: Comment on above: Reference Range: 0.5 0 - 1.30 Glucose [Mass/Vol] 232 mg/dL above high threshold 74 - 99 [facility] Work Phone: Potassium [Moles/Vol] 3.7 mmol/L 3.5 - 5.3 [facility] Work Phone: Sodium [Moles/Vol] 134 mmol/L below low threshold 136 - 145 [facility] Work Phone: Urea nitrogen [Mass/Vol] 9 mg/dL 6 - 23 [facility] Work Phone: Laboratory - Hematology and Cell countson 11-06-2020 Erythrocyte distribution width (RBC) [Ratio] 15.9 % above high threshold See Below [facility] Work Phone: Comment on above: Reference Range: 11. 5 - 14.5 Hematocrit (Bld) [Volume fraction] 46.0 % See Below [facility] Work Phone: Comment on above: Reference Range: 41. 0 - 52.0 Hemoglobin (Bld) [Mass/Vol] 16.2 g/dL See Below [facility] Work Phone: [phone] Comment on above: Reference Range: 13. 5 - 17.5 MCHC (RBC) [Mass/Vol] 35.2 g/dL See Below [facility] Work Phone: Comment on above: Reference Range: 32. 0 - 36.0 MCV (RBC) [Entitic vol] 113 fL above high threshold 80 - 100 [facility] Work Phone: [phone] Platelets (Bld) [#/Vol] 154 10*3/uL 150 - 450 [facility] Work Phone: [phone] RBC (Bld) [#/Vol] 4.07 {x10E12/L} below low threshold See Below [facility] Work Phone: [phone] Comment on above: Reference Range: 4.5 0 - 5.90 WBC (Bld) [#/Vol] 5.4 10*3/uL 4.4 - 11.3 [facility] Work Phone: MAGNESIUMon 11-06-2020 Magnesium [Mass/Vol] 1.63 mg/dL Normal 1.60 - 2.40 [facility] Comment on above: Performed By: #### B #### [facility] [address] [place] [address] Magnesium, Serumon Magnesium [Mass/Vol] 1.63 mg/dL See Below [facility] Work Phone: [phone] Comment on above: Reference Range: 1.6 0 - 2.40 No Panel Informationon 11-06 >60 >60 [facility] Work Phone: Comment on above: CALCULATIONS OF MARLENY MATED GFR ARE PERFORMED USING THE MDRD STUDY EQUATION FOR THE IDMS-TRACEABLE CREATININE METHODS. CLIN CHEM 2007;53:766-72 0.0 {/100_WBC} 0.0 - 0.0 -[facility] Work Phone: Order Reconciliationon 11-06 Order Reconciliation Page 1 Discharge Reconciliation Document Reconciliation Type: Discharge requested on behalf of Maritza Choudhury (Resident) done by Maritza Choudhury ( (Resident)) Discharge - Partial Reconciliation: 06-Nov-2020 11:12 by: Jacki Cui ([facility]) Discharge - Reconciliation: 06-Nov-2020 11:18 by: Maritza [...] DISCHARGE TODAY AFTER SEEN BY DR. BAH'S LEATHER STAKER AND DISCHARGE PAPERWORK IS FINALIZED Discharge Communication [...] be shared with your follow-up providers (doctor, financial business analyst, physical therapist, etc.). Guidelines for a Healthy Lifestyle Physician Appointment - Post Discharge Appointment to be scheduled by [facility] Services[facility]ticipated Discharge Date: [id number] schedule appt with: Dr. Lake schedule appt [...] DISCHARGE TODAY AFTER SEEN BY DR. BAH'S LEATHER STAKER AND DISCHARGE PAPERWORK IS FINALIZED Discharge Communication [...] be shared with your follow-up providers (doctor, financial business analyst, physical therapist, etc.). Guidelines for a Healthy Lifestyle hydroCHLOROthiazide 12.5 mg oral tablet 1 tab(s) orally once a day ondansetron 8 mg oral tablet 1 (more content not included)... Normal [facility] BASIC METABOLIC PANELon 06 Anion gap [Moles/Vol] 12 mmol/L Normal 10 - 20 [facility] Comment on above: Performed By: #### B MP #### [address] [address] Calcium [Mass/Vol] 8.1 mg/dL Low 8.6 - 10.3 [facility] Comment on above: Performed By: #### B MP #### [address] [address] Chloride [Moles/Vol] 100 mmol/L Normal 98 - 107 [facility] Comment on above: Performed By: #### B MP #### [address] [address] Creatinine [Mass/Vol] 0.74 mg/dL Normal 0.50 - 1.30 [facility] Comment on above: Performed By: #### B MP #### [address] [address] GFR- AM. >60 Normal >60 [facility] Comment on above: Result Comment: CALC ULATIONS OF ESTIMATED GFR ARE PERFORMED USING THE MDRD STUDY EQUATION FOR THE IDMS-TRACEABLE CREATININE METHODS. CLIN CHEM 2007;53:766-72 Performed By: #### B MP #### [address] [place] [address] GFR-NON AM. >60 Normal >60 [facility] Comment on above: Performed By: #### B MP #### [address] [place] [address] Glucose [Mass/Vol] 104 mg/dL High 74 - 99 [facility] Comment on above: Performed By: #### B MP #### [address] [place] [address] HCO3 (Bld) [Moles/Vol] 29 mmol/L Normal 21 - 32 [facility] Comment on above: Performed By: #### B MP #### [address] [place] [address] Potassium [Moles/Vol] 3.8 mmol/L Normal 3.5 - 5.3 [facility] Comment on above: Performed By: #### B MP #### [address] [place] [address] Sodium [Moles/Vol] 137 mmol/L Normal 136 - 145 [facility] Comment on above: Performed By: #### B MP #### [address] [place] [address] Urea nitrogen [Mass/Vol] 4 mg/dL Low 6 - 23 [facility] Comment on above: Performed By: #### B MP #### [address] [place] [address] CBCon 11-05-2020 Erythrocyte distribution width (RBC) [Ratio] 16.4 % High 11.5 - 14.5 [facility] Comment on above: Performed By: #### C BC #### [address] [place] [address] Hematocrit (Bld) [Volume fraction] 49.2 % Normal 41.0 - 52.0 [facility] Comment on above: Performed By: #### C BC #### [address] [place] [address] Hemoglobin (Bld) [Mass/Vol] 17.4 g/dL Normal 13.5 - 17.5 [facility] Comment on above: Performed By: #### C BC #### [address] [place] [address] MCHC (RBC) [Mass/Vol] 35.4 g/dL Normal 32.0 - 36.0 [facility] Comment on above: Performed By: #### C BC #### [address] [place] [address] MCV (RBC) [Entitic vol] 113 fL High 80 - 100 [facility] Comment on above: Performed By: #### C BC #### [address] [place] [address] NUCLEATED RBC 0.0 /100 WBC Normal 0.0 - 0.0 [facility] Comment on above: Performed By: #### C BC #### [address] [place] [address] Platelets (Bld) [#/Vol] 166 10*3/uL Normal 150 - 450 [facility] Comment on above: Performed By: #### C BC #### [address] [place] [address] RBC 4.36 x10E12/L Low 4.50 - 5.90 [facility] Comment on above: Performed By: #### C BC #### [address] [place] [address] WBC (Bld) [#/Vol] 4.4 10*3/uL Normal 4.4 - 11.3 [facility] Comment on above: Performed By: #### C BC #### [address] [place] [address] Erythrocyte distribution width (RBC) [Ratio] 16.2 % High 11.5 - 14.5 [facility] Comment on above: Performed By: #### C BC #### [address] [place] [address] Hematocrit (Bld) [Volume fraction] 53.2 % High 41.0 - 52.0 [facility] Comment on above: Performed By: #### C BC #### [address] [address] Hemoglobin (Bld) [Mass/Vol] 18.5 g/dL High 13.5 - 17.5 [facility] Comment on above: Performed By: #### C BC #### [address] [address] MCHC (RBC) [Mass/Vol] 34.8 g/dL Normal 32.0 - 36.0 [facility] Comment on above: Performed By: #### C BC #### [address] [address] MCV (RBC) [Entitic vol] 113 fL High 80 - 100 [facility] Comment on above: Performed By: #### C BC #### [address] [address] NUCLEATED RBC 0.0 /100 WBC Normal 0.0 - 0.0 [facility] Comment on above: Performed By: #### C BC #### [address] [address] Platelets (Bld) [#/Vol] 190 10*3/uL Normal 150 - 450 [facility] Comment on above: Performed By: #### C BC #### [address] [address] RBC 4.70 x10E12/L Normal 4.50 - 5.90 [facility] Comment on above: Performed By: #### C BC #### [address] [address] WBC (Bld) [#/Vol] 5.8 10*3/uL Normal 4.4 - 11.3 [facility] Comment on above: Performed By: #### C BC #### [address] [address] COAGULATION SCREENon 021 aPTT Coag (Bld) [Time] 40 s High 25 - 35 [facility] Comment on above: Result Comment: THE APTT IS NO LONGER USED FOR MONITORING UNFRACTIONATED HEPARIN THERAPY. FOR MONITORING HEPARIN THERAPY, USE THE HEPARIN ASSAY. Performed By: #### C OAGS #### [facility] [facility] [address] [place] [address] PT Coag (PPP) [Time] 15.0 s High 10.1 - 13.3 [facility] Comment on above: Performed By: #### C OAGS #### [address] [place] [address] PT, INR 1.3 High 0.9 - 1.1 [facility] Comment on above: Performed By: #### C OAGS #### [address] [place] [address] COMPREHENSIVE PANELon 2020 Albumin [Mass/Vol] 3.1 g/dL Low 3.4 - 5.0 [facility] Comment on above: Performed By: #### B MP #### [address] [place] [address] ALP [Catalytic activity/Vol] 156 U/L High 33 - 120 [facility] Comment on above: Performed By: #### B MP #### [address] [place] [address] ALT [Catalytic activity/Vol] 44 U/L Normal 10 - 52 [facility] Comment on above: Result Comment: Melissa ents treated with Sulfasalazine may generate falsely decreased results for ALT. Performed By: #### B MP #### [address] [place] [address] Anion gap [Moles/Vol] 15 mmol/L Normal 10 - 20 [facility] Comment on above: Performed By: #### B MP #### [address] [place] [address] AST [Catalytic activity/Vol] 61 U/L High 9 - 39 [facility] Comment on above: Performed By: #### B MP #### [address] [place] [address] Bilirubin [Mass/Vol] 1.4 mg/dL High 0.0 - 1.2 [facility] Comment on above: Performed By: #### B MP #### [address] [place] [address] Calcium [Mass/Vol] 8.6 mg/dL Normal 8.6 - 10.3 [facility] Comment on above: Performed By: #### B MP #### [address] [place] [address] Chloride [Moles/Vol] 95 mmol/L Low 98 - 107 [facility] Comment on above: Performed By: #### B MP #### [address] [place] [address] Creatinine [Mass/Vol] 0.85 mg/dL Normal 0.50 - 1.30 [facility] Comment on above: Performed By: #### B MP #### [address] [place] [address] GFR- AM. >60 Normal >60 [facility] Comment on above: Result Comment: CALC ULATIONS OF ESTIMATED GFR ARE PERFORMED USING THE MDRD STUDY EQUATION FOR THE IDMS-TRACEABLE CREATININE METHODS. CLIN CHEM 2007;53:766-72 Performed By: #### B MP #### [address] [place] [address] GFR-NON AM. >60 Normal >60 [facility] Comment on above: Performed By: #### B MP #### [address] [place] [address] Glucose [Mass/Vol] 105 mg/dL High 74 - 99 [facility] Comment on above: Performed By: #### B MP #### [address] [place] [address] HCO3 (Bld) [Moles/Vol] 29 mmol/L Normal 21 - 32 [facility] Comment on above: Performed By: #### B MP #### [address] [place] [address] Potassium [Moles/Vol] 3.8 mmol/L Normal 3.5 - 5.3 [facility] Comment on above: Performed By: #### B MP #### [address] [place] [address] Protein [Mass/Vol] 5.5 g/dL Low 6.4 - 8.2 [facility] Comment on above: Performed By: #### B MP #### [address] [place] [address] Sodium [Moles/Vol] 135 mmol/L Low 136 - 145 [facility] Comment on above: Performed By: #### B MP #### [place] [address] Urea nitrogen [Mass/Vol] 4 mg/dL Low 6 - 23 [facility] Comment on above: Performed By: #### B MP #### [place] [address] CORONAVIRUS 2019, SCREEN ASY MPTOMATICon 11-05-2020 SARS-CoV-2 (COVID-19) RNA EJ+probe Ql (Unsp spec) Not detected Normal Not Detected [facility] Comment on above: Result Comment: . This assay is designed to detect the RdRp gene of SARS-CoV-2 via nucleic acid amplification. A Not Detected result does not preclude COVID-19 infection since the adequacy of sample collection and/or low viral burden may result in presence of viral nucleic acids below the clinical sensitivity of this test method. Fact sheet for providers: www.fda.gov/media/052308/download Fact sheet for patients: www.fda.gov/media/369994/download This test has received FDA Emergency Use Authorization (EUA) and has been verified by [facility]. This test is only authorized for the duration of time that circumstances exist to justify the authorization of the emergency use of in vitro diagnostic tests for the detection of SARS-CoV-2 virus and/or diagnosis of COVID-19 infection under section 564(b)(1) of the Act, 21 U.S.C. 360bbb-3(b)(1), unless the authorization is terminated or revoked sooner. [facility] is certified under CLIA-88 as qualified to perform high complexity testing. Testing is performed in the [facility] laboratory located at [address] [place] [address]. Performed By: #### B MP #### [place] [address] Lab Specimen Source Nasal, Nasopharyngeal Normal [facility] Comment on above: Performed By: #### B MP #### [place] [address] Consult-Interventional Cardi benjaogyon 11-05-2020 Consult-Interventio nal Cardiology Service: Service: Interventional Cardiology Consult: Consult requested by (Attending Name): Angel Dietz Reason: extensive LE DVT History of Present Illness: Admission Reason: DVT HPI: Delayed documentation - pt seen this AM. NARCISO GLEZ is a 55 year old Male with COPD, HTN, tobacco dependence, EtOH abuse, and s/p ORIF R hip in [place] 05/18/20 presents with an extensive R LE [...] Iliac Yes None CFV Yes None Spontaneous/Phasic [address] Ben Francis MD Final VASC LAB Venous [...] up i (more content not included)... Normal [facility] Covid 19 Resultson 1 SARS-CoV-2 (COVID-19) RNA [...] You may also be contacted by the [facility] to see if any of your close [...] or Naproxen (Aleve) can also be used. Acpc-opv-ziesajp cough and cold medicines can be used according to the instructions on the package. Some cibm-fgd-brytffo medicines also contain acetaminophen. Make sure you [...] water are not available, use alcohol-based hand hvac design engineer. Avoid touching your eyes, nose, and mouth [...] 24 brad (more content not included)... Normal [facility] Daily Progress Note-General Internal Medicineon 11-05-2020 Daily [...] negative. Objective Data: Objective Information: T PRBPSpO2 [id number]% Date/Time11/05 12: 12: 12: 12: 12:00 Range(36.6C [...] laboratory results: Heparin assay, UFH Trending View [id number] 12:39:00 05-Nov-2020 07:02:00 05-Nov-2020 05:48:00 05-Nov-2020 03:52:00 [...] Iliac Yes None CFV Yes None Spontaneous/Phasic [address]83 Ben Francis MD Final VASC LAB Venous Duplex Ultrasound for DVT [Oct 30 2020 9:45PM] Assessment and Plan: Code Status: Code StatusFull Code Assessment: 55 yo M with PMHx of COPD, HTN, tobacco dependence, EtOH abuse, and s/p ORIF R hip in [place] 05/18/20 presents with an extensive R LE DVT extending into the distal iliac system. He has been dealing with progressively worsening R LE pain and swelling since his hip surgery 6 months ago. Pain is now limiting ambulation and is unable to work. He cannot recall being discharged on DVT ppx after h (more content not included)... Normal [facility] HEPARIN ASSAY,UFHon 11-06-19 21 HEPARIN ASSAY,UFH 1.4 IU/mL Invalid Interpretation Code [facility] Comment on above: Order Comment: PT ST ILL OFF FLOOR 1800 Called- RB [email or web address], 11/05/2020 19:44 Result Comment: The therapeutic reference range for UFH may be either 0.3-0.6 IU/mL or 0.3-0.7 IU/mL based on the clinical setting for anticoagulant therapy and the associated nomogram used. For heparin dosing guidelines based on clinical scenario and Heparin Assay results, please refer to local Pharmacy and the [facility] Guidelines for Anticoagulation therapy available on the [facility] intranet at: [email or web address]/[place] ital_Guid elines_for_Anticoagu.aspx Called- RB to [facility], 11/05/2020 19:44 Performed By: #### C BC #### [place] [id number] HEPARIN ASSAY,UFH 0.5 IU/mL Normal [facility] Comment on above: Result Comment: The therapeutic reference range for UFH may be either 0.3-0.6 IU/mL or 0.3-0.7 IU/mL based on the clinical setting for anticoagulant therapy and the associated nomogram used. For heparin dosing guidelines based on clinical scenario and Heparin Assay results, please refer to local Pharmacy and the [facility] Guidelines for Anticoagulation therapy available on the [facility] intranet at: [email or web address]://[email or web address] ital_Guid elines_for_Anticoagu.aspx Performed By: #### B MP #### [facility] [address] [place] [address] HEPARIN ASSAY,UFH 0.5 IU/mL Normal [facility] Comment on above: Result Comment: The therapeutic reference range for UFH may be either 0.3-0.6 IU/mL or 0.3-0.7 IU/mL based on the clinical setting for anticoagulant therapy and the associated nomogram used. For heparin dosing guidelines based on clinical scenario and Heparin Assay results, please refer to local Pharmacy and the [facility] Guidelines for Anticoagulation therapy available on the [facility] intranet at: [email or web address]://[email or web address]/[email or web address]/Pages/[place] itals_Guid elines_for_Anticoagu.aspx Performed By: #### B MP #### [address] [address] HEPARIN ASSAY,UFH 0.9 IU/mL Normal [facility] Comment on above: Result Comment: The therapeutic reference range for UFH may be either 0.3-0.6 IU/mL or 0.3-0.7 IU/mL based on the clinical setting for anticoagulant therapy and the associated nomogram used. For heparin dosing guidelines based on clinical scenario and Heparin Assay results, please refer to local Pharmacy and the [facility] Guidelines for Anticoagulation therapy available on the [facility] intranet at: https://[email or web address], [email or web address]/[email or web address]/Pages/[place] itals_Guid elines_for_Anticoagu.aspx Performed By: #### C BC #### [address] [address] HEPARIN ASSAY,UFH 1.6 IU/mL Invalid Interpretation Code [facility] Comment on above: Order Comment: Farideh GALLEGO to MINDI. , 11/05/2020 04:38 Result Comment: The therapeutic reference range for UFH may be either 0.3-0.6 IU/mL or 0.3-0.7 IU/mL based on the clinical setting for anticoagulant therapy and the associated nomogram used. For heparin dosing guidelines based on clinical scenario and Heparin Assay results, please refer to local Pharmacy and the [facility] Guidelines for Anticoagulation therapy available on the [facility] intranet at: https://[email or web address], [email or web address]/Pharmacy/Pages/[place] itals_Guid elines_for_Anticoagu.aspx Kayla GALLEGO to MINDI. , 11/05/2020 04:38 Performed By: #### C BC #### [address] [address] Heparin assay, UFHon 11-05- 021 Heparin unfractionated Chromogenic method Qn (PPP) 1.1 {IU/mL} Critically abnormal [facility] Work Phone: Comment on above: The therapeutic refe rence range for UFH may be either 0.3-0.6 IU/mL or 0.3-0.7 IU/mL based on the clinical setting for anticoagulant therapy and the associated nomogram used. For heparin dosing guidelines based on clinical scenario and Heparin Assay results, please refer to local Pharmacy and the [facility] Guidelines for Anticoagulation therapy available on the [facility] intranet at:[email or web address]_ ospitals_Guidelines_for_Anticoagu.aspx Called- RB diogo BELL, 11/05/2020 23:04 Heparin unfractionated Chromogenic method Qn (PPP) 1.4 {IU/mL} Critically abnormal [facility] Work Phone: Comment on above: The therapeutic refe rence range for UFH may be either 0.3-0.6 IU/mL or 0.3-0.7 IU/mL based on the clinical setting for anticoagulant therapy and the associated nomogram used. For heparin dosing guidelines based on clinical scenario and Heparin Assay results, please refer to local Pharmacy and the [facility] Guidelines for Anticoagulation therapy available on the [facility] intranet at:[email or web address]_ ospitals_Guidelines_for_Anticoagu.aspx Called- RB [email or web address], 11/05/2020 19:44 Heparin unfractionated Chromogenic method Qn (PPP) 0.5 {IU/mL} [facility] Work Phone: Comment on above: The therapeutic refe rence range for UFH may be either 0.3-0.6 IU/mL or 0.3-0.7 IU/mL based on the clinical setting for anticoagulant therapy and the associated nomogram used. For heparin dosing guidelines based on clinical scenario and Heparin Assay results, please refer to local Pharmacy and the [facility] Guidelines for Anticoagulation therapy available on the [facility] intranet at:[email or web address] [email or web address]_ ospitals_Guidelines_for_Anticoagu.aspx Heparin unfractionated Chromogenic method Qn (PPP) 0.5 {IU/mL} [facility] Work Phone: Comment on above: The therapeutic refe rence range for UFH may be either 0.3-0.6 IU/mL or 0.3-0.7 IU/mL based on the clinical setting for anticoagulant therapy and the associated nomogram used. For heparin dosing guidelines based on clinical scenario and Heparin Assay results, please refer to local Pharmacy and the [facility] Guidelines for Anticoagulation therapy available on the [facility] intranet at:[email or web address]/Pages/[place]_ ospitals_Guidelines_for_Anticoagu.aspx Heparin unfractionated Chromogenic method Qn (PPP) 0.9 {IU/mL} [facility] Work Phone: Comment on above: The therapeutic refe rence range for UFH may be either 0.3-0.6 IU/mL or 0.3-0.7 IU/mL based on the clinical setting for anticoagulant therapy and the associated nomogram used. For heparin dosing guidelines based on clinical scenario and Heparin Assay results, please refer to local Pharmacy and the [facility] Guidelines for Anticoagulation therapy available on the [facility] intranet at:[email or web address]_ ospitals_Guidelines_for_Anticoagu.aspx Heparin unfractionated Chromogenic method Qn (PPP) 1.6 {IU/mL} Critically abnormal [facility] Work Phone: Comment on above: The therapeutic refe rence range for UFH may be either 0.3-0.6 IU/mL or 0.3-0.7 IU/mL based on the clinical setting for anticoagulant therapy and the associated nomogram used. For heparin dosing guidelines based on clinical scenario and Heparin Assay results, please refer to local Pharmacy and the [facility] Guidelines for Anticoagulation therapy available on the [facility] intranet at:[email or web address]_ ospitals_Guidelines_for_Anticoagu.aspx Called- RB to MINDI. , 11/05/2020 04:38 Laboratory - Chemistry and C hemistry - challengeon 11-05-2020 Anion gap [Moles/Vol] 12 mmol/L 10 - 20 [facility] Work Phone: Calcium [Mass/Vol] 8.1 mg/dL below low threshold 8.6 - 10.3 [facility] Work Phone: Chloride [Moles/Vol] 100 mmol/L 98 - 107 [facility] Work Phone: CO2 [Moles/Vol] 29 mmol/L 21 - 32 [facility] Work Phone: Creatinine [Mass/Vol] 0.74 mg/dL See Below [facility] Work Phone: Comment on above: Reference Range: 0.5 0 - 1.30 Glucose [Mass/Vol] 104 mg/dL above high threshold 74 - 99 [facility] Work Phone: Potassium [Moles/Vol] 3.8 mmol/L 3.5 - 5.3 [facility] Work Phone: Sodium [Moles/Vol] 137 mmol/L 136 - 145 [facility] Work Phone: Urea nitrogen [Mass/Vol] 4 mg/dL below low threshold 6 - 23 [facility] Work Phone: Laboratory - Coagulationon 0 11-05-2020 INR Coag (PPP) [Relative time] 1.2 {INR} above high threshold 0.9 - 1.1 [facility] Work Phone: PT Coag (PPP) [Time] 13.9 s above high threshold See Below [facility] Work Phone: Comment on above: Reference Range: 10. 1 - 13.3 Laboratory - Hematology and Cell countson 11-05-2020 Erythrocyte distribution width (RBC) [Ratio] 16.4 % above high threshold See Below [facility] Work Phone: Comment on above: Reference Range: 11. 5 - 14.5 Hematocrit (Bld) [Volume fraction] 49.2 % See Below [facility] Work Phone: Comment on above: Reference Range: 41. 0 - 52.0 Hemoglobin (Bld) [Mass/Vol] 17.4 g/dL See Below [facility] Work Phone: [phone] Comment on above: Reference Range: 13. 5 - 17.5 MCHC (RBC) [Mass/Vol] 35.4 g/dL See Below [facility] Work Phone: [phone] Comment on above: Reference Range: 32. 0 - 36.0 MCV (RBC) [Entitic vol] 113 fL above high threshold 80 - 100 [facility] Work Phone: [phone] Platelets (Bld) [#/Vol] 166 10*3/uL 150 - 450 [facility] Work Phone: [phone] RBC (Bld) [#/Vol] 4.36 {x10E12/L} below low threshold See Below [facility] Work Phone: [phone] Comment on above: Reference Range: 4.5 0 - 5.90 WBC (Bld) [#/Vol] 4.4 10*3/uL 4.4 - 11.3 [facility] Work Phone: [phone] MAGNESIUMon 11-05-2020 Magnesium [Mass/Vol] 1.41 mg/dL Low 1.60 - 2.40 [facility] Comment on above: Performed By: #### M G #### [facility] [address] [place] [address] Magnesium [Mass/Vol] 1.62 mg/dL Normal 1.60 - 2.40 [facility] Comment on above: Performed By: #### M G #### [facility] [address] [place] [address] Magnesium, Serumon Magnesium [Mass/Vol] 1.41 mg/dL below low threshold See Below [facility] Work Phone: Comment on above: Reference Range: 1.6 0 - 2.40 No Panel Informationon 11-05 Please click on the link to view the study images Normal [facility] Work Phone: [facility] Work Phone: >60 >60 [facility] Work Phone: Comment on above: CALCULATIONS OF MARLENY MATED GFR ARE PERFORMED USING THE MDRD STUDY EQUATION FOR THE IDMS-TRACEABLE CREATININE METHODS. CLIN CHEM 2007;53:766-72 0.0 {/100_WBC} 0.0 - 0.0 [facility] Work Phone: Order Reconciliationon 11-05 Order Reconciliation Page 1 Admission Reconciliation Document Reconciliation Type: Admission from ED requested on behalf of Angel Dietz (Physician) done by Angel Dietz (DO) Admission from ED - Reconciliation: 04-Nov-2020 23:44 by: Angel Dietz (DO) Home MedicationsEnteredLast Dose TakenReconciled with current Order Reconciliation Comment/ Additional Information hydroCHLOROthiazide 12.5 mg oral tablet 1 tab(s) orally once a [id number] Reviewed and Held ondansetron 8 mg oral tablet 1 tab(s) orally every 8 hours, As Needed 04-Nov-2020 Reviewed and Held Xarelto 15 mg oral tablet 1 tab(s) orally 2 times a [id number] Reviewed and Held Additional Current Orders Heparin [...] HOLD INFUSION. Contact physician for furthe Normal [facility] PT/INRon 11-05-2020 PT Coag (PPP) [Time] 13.9 s High 10.1 - 13.3 [facility] Comment on above: Performed By: #### P TINR #### [facility] [address] [place] [address] PT, INR 1.2 High 0.9 - 1.1 [facility] Comment on above: Performed By: #### P TINR #### [facility] [address] [place] [address] PROTHROMBIN TIME Canceled Normal [facility] Comment on above: Order Comment: TEST PT/INR WAS CANCELLED, 11/05/2020 09:16 DUPLICATE ORDER. Performed By: #### P TINR #### [facility] [address] [place] [address] PT, INR Canceled Normal [facility] Comment on above: Order Comment: TEST PT/INR WAS CANCELLED, 11/05/2020 09:16 DUPLICATE ORDER. Performed By: #### P TINR #### [facility] [address] [place] [id number] Peripheral lower extremity a ngioplasty/stenton 11-05-2020 Peripheral lower extremity angioplasty/stent [facility], Manager [employer], [address] [place] [address] Cardiovascular Catheterization Report Patient Name: NARCISO GLEZ Performing Physician: [id number] Bah MD Study Date: 11/05/2020 Verifying Physician: Dash Bah MD MRN/PID: [id number] Automation Engineering Technician: Accession/Order#: [id number] Fellow: Jessica Fairchild MD Date of : [...] cannulated with a percutaneous technique. A 9 Gibraltarian sheath was placed in the vein. Post-procedure, [...] basket was underexpanded, balloon venoplasty performed with [place] balloon 8 x 40 mm at 6 [...] RN PROC RECORD 1 + +- + Issac Brigida RN PROC RECORD 2 + +- + BobbyLida RN PROC NURSE 1 + +- + Sedation Time: + +-- + Sedation Start/End Times Time + +-- + Start 11/05/2020 16:38:13 + +-- + End 11/05/2020 17:49:18 + +-- + Equipment Used: + +------ + Date/Time Description + +------ + 11/05/2020 4:25:14 PM {Misc} [employer]iance Femoral Angio Pack 0 - Qty: 1 Each Part #: [id number] + +------ + 11/05/2020 4:25:18 PM {Misc} Pope Adult Nasal O2 Cannula w/ capnography - Qty: 1 Each Part #: [id number] + +------ + 11/05/2020 4:49:06 PM {Misc Cath} Terumo [place] 9F Sheath 10 cm - Qty: 1 Each Part #: [id number] + +------ + 11/05/2020 4:49:11 PM {Diagnostic Wires} Terumo Glidewire Stiff 0.035mm x 260cm Angled Tip - Qty: 1 Each Part #: [id number] + +------ + 11/05/2020 4:53:30 PM {Not in Inventory} 16 F dilator + +------ + 11/05/2020 4:53:41 PM {Diagnostic Wires} Gamestaq J 0.035 260 cm - Qty: 1 Each Part #: [id number] + +------ + 11/05/2020 4:54:16 PM {Microcatheter} Terumo NaviCross 150 cm Angled Tip - Qty: 1 Each Part #: [id number] +--------- (more content not included)... Normal [facility] TYPE + SCREENon 11-05-2020 ABO TYPE A Normal [facility] Comment on above: Performed By: #### M G #### [place] [address] RH TYPE Positive Normal [facility] Comment on above: Performed By: #### M G #### [place] [id number] Admission Risk Screen - Adul ton 11-04-2020 [...] AlertFor Ebola-like Symptoms: Isolate Patient and Notify Provider/Fourth Officer For Contact: Notify Provider/Fourth Officer Advance Directive: Advance Directive/DNRyes Advance Directive typeDurable Power of Gun Repair Clerk for Healthcare Durable Power of Gun Repair Clerk AvailabilityDPOA not available now Durable Power of Gun Repair Clerk [id number] Durable Power of Gun Repair Clerk contact (name and number)Haylee Leonardo (sister) [phone] Hussein Fall Screen: History of falling (immediate [...] Learning Preferencesindividual instruction Cultural Considerationsnone Developmental Considerationsnone Amish Considerationsnone Learning Assessment (Other Learner): Other learner availableno Depression Screen: During the past month, have you often been bothered by feeling down, depressed or hopelessno During the past month, have you often had little interest or pleasure in doing thingsno Have you had any thoughts of harming anyone elseno Florien Suicide: Risk Screen Not Applicable/Able to Answerable to be screened In the Past Month: Have you wished you were or could go to sleep and not wake upno In the Past Month: Have you had any actual thoughts of killing yourselfno Lifetime: Have you ever done, started to do, or prepared to do anything to end your lifeno Florien Suicide Risknegative Adult Nutrition Screen: Have you [...] = Mod (more content not included)... Normal [facility] Coronavirus 2019 RNA by PCR, Screening Asymptomticon 11-04-2020 Coronavirus 2019 RNA by PCR, Screening Asymptomtic Not detected Normal See Below [facility] Work Phone: Comment on above: SOURCE: Nasal, [...] this test method. Fact sheet for providers: www.fda.gov/media/717563/downloadFact sheet for patients: www.fda.gov/media/199450/downloadThis test has received FDA Emergency Use Authorization (EUA) and has been verified by [facility]. This test is only authorized for the duration of time that circumstances exist to justify the authorization of the emergency use of in vitro diagnostic tests for the detection of SARS-CoV-2 virus and/or diagnosis of COVID-19 infection under section 564(b)(1) of the Act, 21 U.S.C. 360bbb-3(b)(1), unless the authorization is terminated or revoked sooner. [facility] is certified under CLIA-88 as qualified to perform high complexity testing. Testing is performed in the [facility] laboratory located at [address] [place] [address]. Discharge Planning [id number] 0 11-04-2020 Discharge Planning Note2 Discharge Planning: Planned Dispositionhome Discharge DestinationHome [facility] [place] of Choice Explainedyes Anticipated Discharge [id number] Discharge Planning 11/05/2020 10:58 Transitional career development manager : Attempted to meet with patient, Patient asleep in bed. Continue to follow for discharge needs. Addendum 1522 Attempted again to meet patient, currently off division for surgical procedure. Per AM nursing rounds, patient was on Xarelto prior to admission and was concerned with cost. Left a Xarelto discount card @ bedside. Glory Cevallos BSN/RN TCC 11/05/2020 @ 1214 Social Work Note: SW consult for ETOH use for this pt. SW met with pt. Patient presented as alert and oriented, pleasant and cooperative, and agreed to SW visit. Prior to admission, pt reports living at home independently 11/06/20 TIME 12:25PM TRANSITIONAL WELDER TACK NOTE MET WITH PT TODAY. SOME CONCERNS REGARDING BEING ABLE TO AFFORD THE XARLETO. PER PT IT IS $600.00 AND HE IS UNABLE TO AFFORD. I TRIED TO SEE IF IT WOULD BE CHEAPER AT [facility] BUT IT WILL NOT BE ANY [...] WILLIAMN, RN, TCC. Assessment: Discharge Planning Assessment [id number] Primary Contact Name and NumberHaylee Leonardo (sister) [phone](1) Stated Reason for Admissionright leg pain/swelling(1) [place] [facility] [place] Medication Adherence/Afford/Obtainyes Lives Withother relative(s)(1) Living Arrangementshouse(1) Prior Level of FunctioningINDEPENDENT Resource/Environmental Concernsnone(1) Social Determinants of Health IdentifiedSMOKERBRIE SW ADDRESSED Transportation Home Who/HowFAMILY [place]) Services Anticipated at Transitionnone Anticipated Changes Related to Illnessnone Equipment Needed After Dischargenone Anticipated Discharge Facility/Level of Care NeedsHome Electronic Signatures: Alyx Rogers (BLUEPRINT CLERK) (Signed 05-Nov-2020 12:24) Authored: Discharge Planning Glory Cevallos (CYBER TRANSPORT SYSTEMS SPECIALIST) (Signed 05-Nov-2020 18:56) Authored: Discharge Planning Ethel Mccurdy (RN) (Signed 04-Nov-2020 22:48) Authored: Assessment Johanna Evans (COOR) (Signed 06-Nov-2020 12:33) Authored: Discharge Planning, Assessment Last Updated: 06-Nov-2020 12:33 by Johanna Evans (COOR) References: 1. Data Referenced From Patient Profile - Adult v2 04-Nov-2020 21:30 Normal [facility] Laboratory - Blood bankon ABO group Nom (Bld) A [facility] Work Phone: Blood group antibody screen Ql Negative [facility] Work Phone: Rh immune globulin screen (Bld) [Interp] Positive [facility] Work Phone: Laboratory - Chemistry and C hemistry - challengeon 11-04-2020 Albumin BCP dye [Mass/Vol] 3.1 g/dL below low threshold 3.4 - 5.0 [facility] Work Phone: ALP [Catalytic activity/Vol] 156 U/L above high threshold 33 - 120 [facility] Work Phone: ALT With P-5'-P [Catalytic activity/Vol] 44 U/L 10 - 52 [facility] Work Phone: Comment on above: Patients treated wit h Sulfasalazine may generate falsely decreased results for ALT. Anion gap [Moles/Vol] 15 mmol/L 10 - 20 [facility] Work Phone: AST With P-5'-P [Catalytic activity/Vol] 61 U/L above high threshold 9 - 39 [facility] Work Phone: Bilirubin [Mass/Vol] 1.4 mg/dL above high threshold 0.0 - 1.2 [facility] Work Phone: Calcium [Mass/Vol] 8.6 mg/dL 8.6 - 10.3 [facility] Work Phone: Chloride [Moles/Vol] 95 mmol/L below low threshold 98 - 107 [facility] Work Phone: CO2 [Moles/Vol] 29 mmol/L 21 - 32 [facility] Work Phone: Creatinine [Mass/Vol] 0.85 mg/dL See Below [facility] Work Phone: Comment on above: Reference Range: 0.5 0 - 1.30 Glucose [Mass/Vol] 105 mg/dL above high threshold 74 - 99 [facility] Work Phone: Potassium [Moles/Vol] 3.8 mmol/L 3.5 - 5.3 [facility] Work Phone: Protein [Mass/Vol] 5.5 g/dL below low threshold 6.4 - 8.2 [facility] Work Phone: Sodium [Moles/Vol] 135 mmol/L below low threshold 136 - 145 [facility] Work Phone: Urea nitrogen [Mass/Vol] 4 mg/dL below low threshold 6 - 23 [facility] Work Phone: Laboratory - Coagulationon 0 11-04-2020 aPTT Coag (PPP) [Time] 40 s above high threshold 25 - 35 [facility] Work Phone: Comment on above: THE APTT IS NO LONGE R USED FOR MONITORING UNFRACTIONATED HEPARIN THERAPY. FOR MONITORING HEPARIN THERAPY, USE THE HEPARIN ASSAY. INR Coag (PPP) [Relative time] 1.3 {INR} above high threshold 0.9 - 1.1 [facility] Work Phone: PT Coag (PPP) [Time] 15.0 s above high threshold See Below [facility] Work Phone: Comment on above: Reference Range: 10. 1 - 13.3 Laboratory - Hematology and Cell countson 11-04-2020 Erythrocyte distribution width (RBC) [Ratio] 16.2 % above high threshold See Below [facility] Work Phone: Comment on above: Reference Range: 11. 5 - 14.5 Hematocrit (Bld) [Volume fraction] 53.2 % above high threshold See Below [facility] Work Phone: Comment on above: Reference Range: 41. 0 - 52.0 Hemoglobin (Bld) [Mass/Vol] 18.5 g/dL above high threshold See Below [facility] Work Phone: Comment on above: Reference Range: 13. 5 - 17.5 MCHC (RBC) [Mass/Vol] 34.8 g/dL See Below [facility] Work Phone: Comment on above: Reference Range: 32. 0 - 36.0 MCV (RBC) [Entitic vol] 113 fL above high threshold 80 - 100 [facility] Work Phone: [phone] Platelets (Bld) [#/Vol] 190 10*3/uL 150 - 450 [facility] Work Phone: RBC (Bld) [#/Vol] 4.70 {x10E12/L} [facility] Work Phone: Comment on above: Reference Range: 4.5 0 - 5.90 WBC (Bld) [#/Vol] 5.8 10*3/uL 4.4 - 11.3 [facility] Work Phone: Magnesium, Serumon 1 Magnesium [Mass/Vol] 1.62 mg/dL See Below [facility] Work Phone: Comment on above: Reference Range: 1.6 0 - 2.40 No Panel Informationon 11-04 >60 >60 [facility] Work Phone: Comment on above: CALCULATIONS OF MARLENY MATED GFR ARE PERFORMED USING THE MDRD STUDY EQUATION FOR THE IDMS-TRACEABLE CREATININE METHODS. CLIN CHEM 2007;53:766-72 0.0 {/100_WBC} 0.0 - 0.0 [facility] Work Phone: Patient Profile - Adult v2on 11-04-2020 Patient Profile - Adult v2 Profile: Initial Info: How to be AddressedRich Spoken Language PreferredEnglish Source of Informationpatient Stated Reason for Admissionright leg pain/swelling Primary Contact Name and NumberHaylee Leonardo (sister) [phone] Patient Belongingsremains with patient Patient Belongings Remaining with Patientclothing; medication(s); vision aids; cell phone/electronics; purse/wallet [place] Medications Brought to Hospitalyes Medication Dispositionlocked in unit medication cabinet Are you currently using the Personal Electronic Health Record or Innotrieves Family/Rep Notified of Admissionfamily aware Notify PCPnotify PCP Informed of Patient Visiting [facility] General Health: Weight in kg75.4 kilogram(s) Weight in szd300.2 pound(s) Weight Methodactual (measured) Scale Typestanding Height in cm177.8 centimeter(s) Height in feet5 feet Height in ptajyc82 inch(es) Height Methodstated BMI (kg/m2)23.851 square meter [...] Services Anticipated at Transitionmedical specialist Anticipated Transition [place] Significant IndicatorsComplete Information Review: Allergies, Home Meds and Significant Events have been Reviewed and Verified with Patient/Familyyes ALLERGY, INTOLERANCE, ADVERSE EVENT: Allergies: NKDA: Active contrast (specific type unknown): Contrast, Unknown, Active Electronic Signatures: Ethel Mccurdy (NONI) (Signed 04-Nov-2020 22:10) Authored: Initial Info, General Health, [facility] Based Care, Substance, Health Mgmt, Relationship/Environ, Additional Information Last Updated: 04-Nov-2020 22:10 by Ethel Mccurdy) [facility] No Panel Informationon 10-30 [facility] Work Phone: Laboratory - Chemistry and C hemistry - challengeon 10-29-2020 Albumin BCP dye [Mass/Vol] 3.1 g/dL below low threshold 3.4 - 5.0 [facility] Work Phone: ALP [Catalytic activity/Vol] 173 U/L above high threshold 33 - 120 [facility] Work Phone: ALT With P-5'-P [Catalytic activity/Vol] 52 U/L 10 - 52 [facility] Work Phone: Comment on above: Patients treated wit h Sulfasalazine may generate falsely decreased results for ALT. Anion gap [Moles/Vol] 16 mmol/L 10 - 20 [facility] Work Phone: AST With P-5'-P [Catalytic activity/Vol] 77 U/L above high threshold 9 - 39 [facility] Work Phone: Bilirubin [Mass/Vol] 1.8 mg/dL above high threshold 0.0 - 1.2 [facility] Work Phone: Calcium [Mass/Vol] 8.3 mg/dL below low threshold 8.6 - 10.3 [facility] Work Phone: Chloride [Moles/Vol] 101 mmol/L 98 - 107 [facility] Work Phone: CO2 [Moles/Vol] 26 mmol/L 21 - 32 [facility] Work Phone: Creatinine [Mass/Vol] 0.79 mg/dL See Below [facility] Work Phone: Comment on above: Reference Range: 0.5 0 - 1.30 Glucose [Mass/Vol] 142 mg/dL above high threshold 74 - 99 [facility] Work Phone: Potassium [Moles/Vol] 3.8 mmol/L 3.5 - 5.3 [facility] Work Phone: Protein [Mass/Vol] 5.8 g/dL below low threshold 6.4 - 8.2 [facility] Work Phone: Sodium [Moles/Vol] 139 mmol/L 136 - 145 [facility] Work Phone: Urea nitrogen [Mass/Vol] 4 mg/dL below low threshold 6 - 23 [facility] Work Phone: No Panel Informationon 10-29 >60 >60 [facility] Work Phone: Comment on above: CALCULATIONS OF MARLENY MATED GFR ARE PERFORMED USING THE MDRD STUDY EQUATION FOR THE IDMS-TRACEABLE CREATININE METHODS. CLIN CHEM 2007;53:766-72 81 pg/mL 0 - 99 [facility] Work Phone: Comment on above: . <100 pg/mL - Heart failure [id number] pg/mL - Intermediate probability of acute heart. failure exacerbation. Correlate with clinical. context and patient history. >=300 pg/mL - Heart Failure likely. Correlate with clinical. context and patient history.BNP testing is performed using different testing methodology at [facility] than at other [facility]. Direct result comparisons should only be made within the same method. Tobacco Screening.on 021 Tobacco use status [facility] a) Yes [facility] Work Phone: Tobacco Screening. a) Yes [facility] Work Phone: Tobacco Screening. Yes [facility] Work Phone: XR HIP RIGHT 2-3 [...] changes right hip with hardware. Workstation ID: [id number] Dictated by: ANTWON LECHUGA on ThuAug 03, 2020 3:32:10 PM EST Transcribed by: ANTWON LECHUGA on ThuAug 03, 2020 3:32:10 PM EST Finalized by: ANTWON LECHUGA on ThuAug 03, 2020 3:32:10 PM EST Normal [facility] Comment on above: Order Comment: [...] intertrochanteric fracture with TFN hardware in place. [employer] Workstation ID: [id number] Dictated by: SANKET ALARCON on ThuJul 06, 2020 3:40:50 PM EST Transcribed by: TRUPTI TY on ThuJul 06, 2020 3:45:40 PM EST Finalized by: SANKET ALARCON on ThuJul 06, 2020 6:26:46 PM EST Normal [facility] Comment on above: Order Comment: [...] right hip joint. IMPRESSION: Expected postoperative appearance. [employer] Workstation ID: [id number] Dictated by: SUSAN KING on ThuJun 01, 2020 5:28:46 PM EST Transcribed by: DG DONG on ThuJun 01, 2020 5:31:35 PM EST Finalized by: SUSAN KING on ThuJun 01, 2020 6:21:09 PM EST Normal [facility] Comment on above: Order Comment: Injur y/Trauma or Illness?:Injury/Trauma How long have you had these symptoms (acute/chronic)?:Acute Reason for exam?:post op right hip fx f/u History of cancer?:na Surgeries, chemotherapy, or radiation?:n Type of Exam?:Initial Mechanism of injury?:fell on 05/17/20 Hematologyon 05-19-2020 Hemoglobin (Bld) [Mass/Vol] 13.1 g/dL Low 13.5 - 17.5 g/dL [facility] Otheron 05-19-2020 Interpretation and review of laboratory results Abnormal [facility] Hematologyon 05-18-2020 aPTT Coag (Bld) [Time] Therapeutic range for APTT's is 68 - 104 seconds [facility] aPTT Coag (Bld) [Time] 26 s [facility] INR Coag (PPP) [Relative time] 1.1 {INR} [facility] PT Coag (PPP) [Time] 13.6 s [facility] Hematocrit (Bld) [Volume fraction] 42.7 % 41 - 53 % [facility] Hemoglobin (Bld) [Mass/Vol] 14.6 g/dL 13.5 - 17.5 g/dL [facility] MCH (RBC) [Entitic mass] 39.8 pg High 26 - 34 pg [facility] MCV (RBC) [Entitic vol] 116.3 fL High 80 - 100 fL [facility] Nucleated RBC (Bld) [#/Vol] 0.00 10*3/uL [facility] Platelets (Bld) [#/Vol] 186 10*3/uL [facility] RBC (Bld) [#/Vol] 3.67 10*6/uL Low [facility] ealth WBC (Bld) [#/Vol] 11.45 10*3/uL High [facility] Metabolic Panelon 05-18-2020 Albumin [Mass/Vol] 2.8 g/dL Low 3.2 - 5.2 g/dL [facility] ALP [Catalytic activity/Vol] 116 U/L 40 - 150 U/L [facility] ALT [Catalytic activity/Vol] 33 U/L 14 - 65 U/L [facility] Anion gap [Moles/Vol] 8 mmol/L Low 10 - 20 mmol/L [facility] AST [Catalytic activity/Vol] 28 U/L 0 - 45 U/L [facility] Bilirubin [Mass/Vol] 1.3 mg/dL 0 - 1.3 mg/dL [facility] Calcium [Mass/Vol] 7.7 mg/dL Low 8.4 - 10. 2 mg/dL [facility] Chloride [Moles/Vol] 105 mmol/L 98 - 108 mmol/L [facility] Creatinine [Mass/Vol] 0.90 mg/dL 0.50 - 1.30 [facility] GFR/1.73 sq M predicted among non-blacks MDRD (S/P/Bld) [Vol rate/Area] The eGFR should be used for monitoring renal function only and not for medication dosing. [facility] Glucose [Mass/Vol] 118 mg/dL High 65 - 99 mg/dL [facility] Potassium [Moles/Vol] 3.9 mmol/L 3.5 - 5.1 mmol/L [facility] Protein [Mass/Vol] 5.3 g/dL Low 6 - 8 g/dL [facility] Sodium [Moles/Vol] 135 mmol/L 135 - 145 mmol/L [facility] Urea nitrogen [Mass/Vol] 7 mg/dL Low 8 - 25 mg/dL [facility] Urea nitrogen/Creatinine [Mass ratio] 7.8 mg/mg Low [facility] Otheron 05-18-2020 Interface, Rad In Fu ji [...] fracture of femur, unspecified laterality, initial encounter ([facility]) W19.XXXA Fall at home, initial encounter Y92.009 Fall at home, initial encounter S72.144A Closed nondisplaced intertrochanteric fracture of right femur, initial encounter ([facility]) COMPARISON: 05/17/2020 TECHNIQUE: Fluoro Dose Ka,r mGy: [...] in the right hip. Workstation ID: [id number] [facility] EXAMINATION: XR OR H IP RIGHT 2-3 VIEWS HISTORY: ORDERING SYSTEM PROVIDED HISTORY: Rt Hip TFN in OR, TECHNOLOGIST PROVIDED HISTORY: Illness/Other Reason for exam: RT. TFN in OR Encounter Type: Subsequent/Follow-up Additional signs and symptoms: UN Fluoro dose in mGy: 3316.4 ORDERING SYSTEM PROVIDED DIAGNOSIS CODES: S72.146A Closed nondisplaced intertrochanteric fracture of femur, unspecified laterality, initial encounter ([facility]) W19.XXXA Fall at home, initial encounter Y92.009 Fall at home, initial encounter S72.144A Closed nondisplaced intertrochanteric fracture of right femur, initial encounter ([facility]) COMPARISON: 05/17/2020 TECHNIQUE: Fluoro Dose Ka,r mGy: Fluoro dose in Ka,r mGy: 3316.4 FLUOROSCOPY TIME: Fluoro time in minutes: 0.6 Number of images obtained: 5. [facility] FINDINGS/ 1. Please see operative report. 2. The previously seen acute intertrochanteric fracture of the proximal right femur has been internally fixed to near anatomic alignment with an intramedullary daksha, without visualized hardware complications. 3. 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 Workstation ID: [id number] [facility] GFR/1.73 sq M.predicted CKD-EPI (S/P/Bld) [Vol rate/Area] 96 >=60 mL/min/1.73 m2 [facility] HCO3 [Moles/Vol] 26 mmol/L 21 - 32 mmol/L [facility] Interpretation and review of laboratory results Abnormal [facility] Interpretation and review of laboratory results Normal [facility] During the induction phase of oral anticoagulation, the INR may not reflect the anticoagulation status of the patient. Therapeutic ranges for INR's are: Most clinical situations: INR 2.0-3.0 Mechanical Prosthetic Valve: INR 2.5-3.5 Critical: INR >5.0 [facility] Erythrocyte distribution width (RBC) [Entitic vol] 13.3 % 11.6 - 14.8 % [facility] Interpretation and review of laboratory results Abnormal [facility] MCHC (RBC) [Mass/Vol] 34.2 g/dL 31 - 37 g/dL [facility] Nucleated RBC/100 WBC (Bld) [Ratio] 0.0 % [facility] Platelet mean volume (Bld) [Entitic vol] 9.7 fL 9.4 - 12.4 fL [facility] Hematologyon 05-17-2020 Band form neutrophils/100 WBC (Bld) 0.0 % [facility] Basophils (Bld) [#/Vol] 0.00 10*3/uL [facility] Basophils/100 WBC (Bld) 0.0 % [facility] Eosinophils (Bld) [#/Vol] 0.00 10*3/uL [facility] Eosinophils/100 WBC (Bld) 0.0 % [facility] Hematocrit (Bld) [Volume fraction] 46.9 % 41 - 53 % [facility] Hemoglobin (Bld) [Mass/Vol] 15.9 g/dL 13.5 - 17.5 g/dL [facility] Lymphocytes (Bld) [#/Vol] 0.92 10*3/uL [facility] Lymphocytes/100 WBC (Bld) 5.3 % [facility] MCH (RBC) [Entitic mass] 38.8 pg High 26 - 34 pg [facility] MCV (RBC) [Entitic vol] 114.4 fL High 80 - 100 fL [facility] Metamyelocytes/100 WBC (Bld) 0.0 % [facility] Monocytes (Bld) [#/Vol] 0.13 10*3/uL Low [facility] Monocytes/100 WBC (Bld) 0.9 % [facility] Myelocytes/100 WBC (Bld) 0.0 % [facility] Neutrophils (Bld) [#/Vol] 13.85 10*3/uL High [facility] Neutrophils/100 WBC (Bld) 93.0 % [facility] Nucleated RBC (Bld) [#/Vol] 0.00 10*3/uL [facility] Platelets (Bld) [#/Vol] 211 10*3/uL [facility] RBC (Bld) [#/Vol] 4.10 10*6/uL Low [facility] ealt RBC morphology finding Nom (Bld) See Comment [facility] Comment on above: RBC Indices confirme d with manual peripheral smear review. WBC (Bld) [#/Vol] 14.89 10*3/uL High [facility] Imm/Pathon 05-17-2020 MRSA DNA EJ+probe Ql (Unsp spec) Negative MRSA NEGATIVE [facility] Metabolic Panelon 05-17-2020 Albumin [Mass/Vol] 3.2 g/dL 3.2 - 5.2 g/dL [facility] ALP [Catalytic activity/Vol] 124 U/L 40 - 150 U/L [facility] ALT [Catalytic activity/Vol] 39 U/L 14 - 65 U/L [facility] Anion gap [Moles/Vol] 9 mmol/L Low 10 - 20 mmol/L [facility] AST [Catalytic activity/Vol] 37 U/L 0 - 45 U/L [facility] Bilirubin [Mass/Vol] 1.0 mg/dL 0 - 1.3 mg/dL [facility] Calcium [Mass/Vol] 8.2 mg/dL Low 8.4 - 10. 2 mg/dL [facility] Chloride [Moles/Vol] 106 mmol/L 98 - 108 mmol/L [facility] Creatinine [Mass/Vol] 0.76 mg/dL 0.50 - 1.30 [facility] GFR/1.73 sq M predicted among non-blacks MDRD (S/P/Bld) [Vol rate/Area] The eGFR should be used for monitoring renal function only and not for medication dosing. [facility] Glucose [Mass/Vol] 119 mg/dL High 65 - 99 mg/dL [facility] Potassium [Moles/Vol] 3.8 mmol/L 3.5 - 5.1 mmol/L [facility] Protein [Mass/Vol] 6.0 g/dL 6 - 8 g/dL [facility] Sodium [Moles/Vol] 138 mmol/L 135 - 145 mmol/L [facility] Urea nitrogen [Mass/Vol] 5 mg/dL Low 8 - 25 mg/dL [facility] Urea nitrogen/Creatinine [Mass ratio] 6.6 mg/mg Low [facility] Otheron 05-17-2020 Interpretation and review of laboratory results Normal [facility] Influenza A Not Detected Not Detected [facility] Influenza B Not Detected Not Detected [facility] Interpretation and review of laboratory results Normal [facility] SARS-CoV-2 Not Detected Not Detected [facility] This test was perfor med under the [...] For Healthcare Providers: https://www.fda.gov/media/2190/download For Patients: https://www.fda.gov/media/2191/download [facility] Blasts/100 WBC (Bld) 0.0 % [facility] Erythrocyte distribution width (RBC) [Entitic vol] 13.1 % 11.6 - 14.8 % [facility] Interpretation and review of laboratory results Abnormal [facility] MCHC (RBC) [Mass/Vol] 33.9 g/dL 31 - 37 g/dL [facility] Nucleated RBC/100 WBC (Bld) [Ratio] 0.0 % [facility] Other cells/100 WBC Manual cnt (Bld) 0.0 % [facility] Plasma cells/100 WBC (Bld) 0.0 % [facility] Platelet mean volume (Bld) [Entitic vol] 9.4 fL 9.4 - 12.4 fL [facility] Promyelocytes/100 WBC (Bld) 0.0 % [facility] Variant lymphocytes/100 WBC (Bld) 0.9 % [facility] GFR/1.73 sq M.predicted CKD-EPI (S/P/Bld) [Vol rate/Area] 103 >=60 mL/min/1.73 m2 [facility] HCO3 [Moles/Vol] 27 mmol/L 21 - 32 mmol/L [facility] Interpretation and review of laboratory results Abnormal [facility] Interface, Rad In Fu ji Speechq - [...] acute findings are seen. Workstation ID: [id number] [facility] EXAMINATION: XR HIP RIGHT WITH PELVIS 2-3 [...] bony pelvis and left hip appear intact. [facility] Nondisplaced acute intertrochanteric fracture of the proximal right femur. No additional acute findings are seen. Workstation ID: [id number] [facility] XR FOOT LEFT 3+ VIEWS (STAND EFREM)on [...] ID: [id number] Dictated by: RAFAEL CLEARY on Sat Apr 14, 2020 1:46:31 PM EST Transcribed by: RAFAEL CLEARY on Sat Apr 14, 2020 1:46:31 PM EST Finalized by: RAFAEL CLEARY on Sat Apr 14, 2020 1:46:31 PM EST Normal [facility] Comment on above: Order [...] retained radiopaque foreign body. Workstation ID: [id number] [facility] EXAMINATION: XR FOOT LEFT 3+ VIEWS (STANDARD) [...] posterior and plantar calcaneal spur is seen. [facility] Interface, Rad In Fu ji Speechq - [...] retained radiopaque foreign body. Workstation ID: [id number] [facility] Otheron 03-30-2019 Adenovirus DNA EJ+probe (Unsp spec) [#/Vol] Not Detected See Below [facility] Work Phone: Comment on above: SOURCE: Nasal SwabRe ference Range: Not DetectedDetects Serotypes B and E. Detection of Serotype C may belimited. If Adenovirus infection is suspected and a Not Detected result is returned the sample should be re-testedfor adenovirus using an independent method (e.g. [employer] Adenovirus Quantitative Real-time PCR test). RHINO CALLED TO MARIO , 04/02/2019 12:22 FLUAV RNA EJ+probe (Unsp spec) [#/Vol] Not Detected See Below [facility] Work Phone: Comment on above: Reference Range: Not Detected RHINO CALLED TO [facility] , 04/02/2019 12:22 FLUBV RNA EJ+probe (Unsp spec) [#/Vol] Not Detected See Below [facility] Work Phone: Comment on above: Reference Range: Not Detected RHINO CALLED TO MARIO , 04/02/2019 12:22 hMPV RNA EJ+probe (Unsp spec) [#/Vol] Not Detected See Below [facility] Work Phone: Comment on above: Reference Range: Not Detected RHINO CALLED TO MARIO , 04/02/2019 12:22 Rhinovirus RNA EJ+probe Ql (Unsp spec) Positive Abnormal See Below [facility] Work Phone: Comment on above: Reference Range: Not DetectedCross-reactivity has been observed between certain Rhinovirus strains and the Enterovirus assay.Target Enriched Multiplex Polymerase Chain Reaction (TEM-PCR) allows for the detection of multiple pathogens out of a single reaction. This test was developed andits performance characteristics determined by [employer]. It has not been cleared or approved by the U.S. Food and Drug Administration. Results should be used inconjunction with clinical findings, and should not form the sole basisfor a diagnosis or treatment decision.TEM-PCR is a licensed technology of [employer]. Pe rformed At:[facility] [facility] [place], [place] [address]BbarijhuSharri Jorge PhD HCLD(ABB)CLIA# [id number] CALLED TO MARIO, 04/02/2019 12:22 RHINO CALLED TO MARIO , 04/02/2019 12:22 Not Detected See Below [facility] Work Phone: Comment on above: Reference [...] 4:52 pmSigned by: Noah Jolley MD Technologist: [facility] Vital Signs Date Time Vital Sign Value Performing Clinician Ramila thomas 08-17-2024 11:35-0400 Body temperature 95.72 [degF] DR AUBRIE BIRMINGHAM MD [facility] 08-17-2024 11:35-0400 Diastolic Blood Pressure Non-Invasive 90 mm[Hg] DR AUBRIE BIRMINGHAM MD [facility] 08-17-2024 11:35-0400 Heart rate 73 /min DR AUBRIE BIRMINGHAM MD [facility] 08-17-2024 11:35-0400 Respiratory rate 18 /min DR AUBRIE BIRMINGHAM MD [facility] 08-17-2024 11:35-0400 Systolic Blood Pressure Non-Invasive 131 mm[Hg] DR AUBRIE BIRMINGHAM MD [facility] 08-17-2024 11:14-0400 Heart rate 76 /min DR AUBRIE BIRMINGHAM MD [facility] 08-17-2024 11:14-0400 Diastolic Blood Pressure Non-Invasive 79 mm[Hg] DR AUBRIE BIRMINGHAM MD [facility] 08-17-2024 11:14-0400 Mean blood pressure 89 mm[Hg] DR AUBRIE BRIMINGHAM MD [facility] 08-17-2024 11:14-0400 Respiratory rate 18 /min DR AUBRIE BIRMINGHAM MD [facility] 08-17-2024 11:14-0400 Systolic Blood Pressure Non-Invasive 107 mm[Hg] DR AUBRIE BIRMINGHAM MD [facility] 08-17-2024 11:00-0400 Body temperature 97.52 [degF] DR AUBRIE BIRMINGHAM MD [facility] 08-17-2024 11:00-0400 Diastolic Blood Pressure Non-Invasive 95 mm[Hg] DR AUBRIE BIRMINGHAM MD [facility] 08-17-2024 11:00-0400 Heart rate 78 /min DR AUBRIE BIRMINGHAM MD [facility] 08-17-2024 11:00-0400 Mean blood pressure 107 mm[Hg] DR AUBRIE BIRMINGHAM MD [facility] 08-17-2024 11:00-0400 Systolic Blood Pressure Non-Invasive 127 mm[Hg] DR AUBRIE BIRMINGHAM MD [facility] 08-17-2024 10:50-0400 Heart rate 85 /min DR AUBRIE BIRMINGHAM MD [facility] 08-17-2024 10:50-0400 Respiratory Rate - Anes 18 br/min DR AUBRIE BIRMINGHAM MD [facility] 08-17-2024 10:45-0400 Respiratory Rate - Anes 12 br/min DR AUBRIE BIRMINGHAM MD [facility] 08-17-2024 10:40-0400 Respiratory Rate - Anes 14 br/min DR AUBRIE BIRMINGHAM MD [facility] 08-17-2024 08:59-0400 Body height 177.[address] AUBRIE BIRMINGHAM MD [facility] 08-17-2024 08:59-0400 Body weight 75.[address] AUBRIE BIRMINGHAM MD [facility] 08-17-2024 08:45-0400 Body temperature 96.62 [degF] DR AUBRIE BIRMINGHAM MD [facility] 08-17-2024 08:45-0400 Heart rate 74 /min DR AUBRIE BIRMINGHAM MD [facility] 08-03-2024 10:21-[address] AUBRIE BIRMINGHAM MD [facility] 08-03-2024 10:21-[address] AUBRIE BIRMINGHAM MD [facility] 08-03-2024 10:21-0400 Body height [address] AUBRIE BIRMINGHAM MD [facility] 08-03-2024 10:21-0400 Body temperature 97.7 [degF] DR AUBRIE BIRMINGHAM MD [facility] 08-03-2024 10:21-0400 Body weight 77.[address] AUBRIE BIRMINGHAM MD [facility] 08-03-2024 10:21-0400 Body weight 26.54 kg/m2 DR AUBRIE BIRMINGHAM MD [facility] 08-03-2024 10:21-0400 Diastolic Blood Pressure Non-Invasive 79 mm[Hg] DR AUBRIE BIRMINGHAM MD [facility] 08-03-2024 10:21-0400 Heart rate 73 /min DR AUBRIE BIRMINGHAM MD [facility] 08-03-2024 10:21-0400 Systolic Blood Pressure Non-Invasive 114 mm[Hg] DR AUBRIE BIRMINGHAM MD [address] [place] [address] 07-08-2024 09:20-0500 Blood Pressure Cuff Size DR AUBRIE BIRMINGHAM MD [address] 07-08-2024 09:20-[address] AUBRIE BIRMINGHAM MD [address] 07-08-2024 09:20-[address] AUBRIE BIRMINGHAM MD [address] 07-08-2024 09:20-0500 Body height 177.[address] AUBRIE BIRMINGHAM MD [address] 07-08-2024 09:20-0500 Body temperature 97.7 [degF] DR AUBRIE BIRMINGHAM MD [address] 07-08-2024 09:20-0500 Body weight [address] AUBRIE BIRMINGHAM MD [facility] 07-08-2024 09:20-0500 Body weight 24.04 kg/m2 DR AUBRIE BIRMINGHAM MD [facility] 07-08-2024 09:20-0500 Diastolic Blood Pressure Non-Invasive 92 mm[Hg] DR AUBRIE BIRMINGHAM MD [facility] 07-08-2024 09:20-0500 Heart rate 85 /min DR AUBRIE BIRMINGHAM MD [facility] 07-08-2024 09:20-0500 Respiratory rate 18 /min DR AUBRIE BIRMINGHAM MD [facility] 07-08-2024 09:20-0500 Systolic Blood Pressure Non-Invasive 130 mm[Hg] DR AUBRIE BIRMINGHAM MD [facility] 02-22-2024 13:18-0400 Respiratory rate 18 /min DR DONNA FAJARDO MD [address] [place] [address] 02-22-2024 11:30-0400 Diastolic Blood Pressure Non-Invasive 79 mm[Hg] DR DONNA FAJARDO MD [address] 02-22-2024 11:30-0400 Heart rate 96 /min DR DONNA FAJARDO MD [address] 02-22-2024 11:30-0400 Respiratory rate 20 /min DR DONNA FAJARDO MD [address] 02-22-2024 11:30-0400 Systolic Blood Pressure Non-Invasive 103 mm[Hg] DR DONNA FAJARDO MD [address] 02-22-2024 07:55-0400 Body temperature 98.24 [degF] DR DONNA FAJARDO MD [address] 02-22-2024 07:55-0400 Diastolic Blood Pressure Non-Invasive 72 mm[Hg] DR DONNA FAJARDO MD [address] 02-22-2024 07:55-0400 Heart rate 96 /min DR DONNA FAJARDO MD [address] [place] [address] 02-22-2024 07:55-0400 Mean blood pressure 82 mm[Hg] DR DONNA FAJARDO MD [address] [place] [address] 02-22-2024 07:55-0400 Reason For Taking VItal Signs DR DONNA FAJARDO MD [address] [place] [address] 02-22-2024 07:55-0400 Respiratory rate 18 /min DR DONNA FAJARDO MD [address] [place] [address] 09-30-2024 07:55-0400 Systolic Blood Pressure Non-Invasive 101 mm[Hg] DR DONNA FAJARDO MD [address] [place] [address] 02-22-2024 07:42-0400 Heart rate 100 /min DR DONNA FAJARDO MD [address] [place] [address] 02-21-2024 22:30-0400 Blood Pressure Cuff Size DR DONNA FAJARDO MD [address] [place] [address] 02-21-2024 22:30-[address] DONNA FAJARDO MD [address] [place] [address] 02-21-2024 22:30-[address] DONNA FAJARDO MD [address] 02-21-2024 22:30-0400 Body temperature 98.42 [degF] DR DONNA FAJARDO MD [address] 02-21-2024 22:30-0400 Diastolic Blood Pressure Non-Invasive 80 mm[Hg] DR DONNA FAJARDO MD [address] [place] [address] 02-21-2024 22:30-0400 Heart rate 105 /min DR DONNA FAJARDO MD [address] 02-21-2024 22:30-0400 Reason For Taking VItal Signs DR DONNA FAJARDO MD [address] 02-21-2024 22:30-0400 Systolic Blood Pressure Non-Invasive 113 mm[Hg] DR DONNA FAJARDO MD [address] [place] [address] 02-21-2024 20:22-0400 Heart rate 106 /min DR DONNA FAJARDO MD [address] [place] [address] 02-21-2024 20:12-0400 Blood Pressure Cuff Size DR DONNA FAJARDO MD [address] [place] [address] 02-21-2024 20:12-[address] DONNA FAJARDO MD [address] [place] [address] 02-21-2024 20:12-[address] DONNA AFJARDO MD [address] [place] [address] 02-21-2024 15:32-0400 Blood Pressure Cuff Size DR DONNA FAJARDO MD [address] [place] [address] 02-21-2024 15:32-[address] DONNA FAJARDO MD [address] [place] [address] 02-21-2024 15:32-[address] DONNA FAJARDO MD [address] [place] [address] 02-21-2024 15:32-0400 Body temperature 98.06 [degF] DR DONNA FAJARDO MD [address] [place] [address] 02-21-2024 15:32-0400 Reason For Taking VItal Signs DR DONNA FAJARDO MD [address] [place] [address] 02-19-2024 16:19-0400 Body height 177.[address] DONNA FAJARDO MD [address] [place] [address] 02-19-2024 16:19-0400 Body weight 82.[address] DONNA FAJARDO MD [address] [place] [address] 02-19-2024 16:19-0400 Body weight 26.13 kg/m2 DR DONNA FAJARDO MD [address] [place] [address] 02-18-2024 00:44-0400 Heart rate 100 /min DR DONNA FAJARDO MD [address] [place] [address] 02-17-2024 21:43-0400 Mean blood pressure 98 mm[Hg] DR DONNA FAJARDO MD [address] [place] [address] 02-17-2024 14:58-0400 Body weight 80.[address] DONNA FAJARDO MD [address] [place] [address] 03-06-2022 14:12-0400 Body height 172.72 cm Oriana Yousif Work Phone: [facility] Work Phone: 03-06-2022 14:12-0400 Body mass index (BMI) [Ratio] 25.09 kg/m2 Oriana Nag S Mallapareddi Work Phone: [facility] Work Phone: 03-06-2022 14:12-0400 Body surface area Derived from formula 1.88 m2 Oriana Nag S Mallapareddi Work Phone: [facility] Work Phone: 03-06-2022 14:12-0400 Body weight 74.84 kg Oriana Nag S Mallapareddi Work Phone: [facility] Work Phone: 03-06-2022 14:12-0400 Diastolic blood pressure 84 mm[Hg] Oriana Nag S Mallapareddi Work Phone: [facility] Work Phone: 03-06-2022 14:12-0400 Heart rate 91 /min Oriana Nag S Mallapareddi Work Phone: [facility] Work Phone: 03-06-2022 14:12-0400 Systolic blood pressure 120 mm[Hg] Oriana Nag S Mallapareddi Work Phone: [facility] Work Phone: 02-18-2022 14:05-0400 Body height 172.72 cm Oriana Nag S Mallapareddi Work Phone: [facility] Work Phone: 02-18-2022 14:05-0400 Body mass index (BMI) [Ratio] 24.68 kg/m2 Oriana Nag S Mallapareddi Work Phone: [facility] Work Phone: 02-18-2022 14:05-0400 Body surface area Derived from formula 1.87 m2 Oriana Nag S Mallapareddi Work Phone: [facility] Work Phone: 02-18-2022 14:05-0400 Body weight 73.62 kg Oriana Nag S Mallapareddi Work Phone: [facility] Work Phone: 02-18-2022 14:05-0400 Diastolic blood pressure 88 mm[Hg] Oriana Nag S Mallapareddi Work Phone: [facility] Work Phone: 02-18-2022 14:05-0400 Heart rate 96 /min Oriana Nag S Mallapareddi Work Phone: [facility] Work Phone: 02-18-2022 14:05-0400 Systolic blood pressure 102 mm[Hg] Oriana Nag S Mallapareddi Work Phone: [facility] Work Phone: 01-20-2022 16:28-0400 Body height 172.72 cm Oriana Nag S Mallapareddi Work Phone: [facility] Work Phone: 01-20-2022 16:28-0400 Body mass index (BMI) [Ratio] 24.81 kg/m2 Oriana Nag S Mallapareddi Work Phone: [facility] Work Phone: 01-20-2022 16:28-0400 Body surface area Derived from formula 1.87 m2 Oriana Nag S Mallapareddi Work Phone: [facility] Work Phone: 01-20-2022 16:28-0400 Body weight 74.02 kg Oriana Nag S Mallapareddi Work Phone: [facility] Work Phone: 01-20-2022 16:28-0400 Diastolic blood pressure 90 mm[Hg] Oriana Nag S Mallapareddi Work Phone: [facility] Work Phone: 01-20-2022 16:28-0400 Heart rate 96 /min Oriana Nag S Mallapareddi Work Phone: [facility] Work Phone: 01-20-2022 16:28-0400 Systolic blood pressure 118 mm[Hg] Oriana Nag S Mallapareddi Work Phone: [facility] Work Phone: 11-19-2021 16:31-0400 Body height 172.72 cm Oriana Nag S Mallapareddi Work Phone: [facility] Work Phone: 11-19-2021 16:31-0400 Body mass index (BMI) [Ratio] 25.74 kg/m2 Oriana Nag S Mallapareddi Work Phone: [facility] Work Phone: 11-19-2021 16:31-0400 Body surface area Derived from formula 1.9 m2 Oriana Nag S Mallapareddi Work Phone: [facility] Work Phone: 11-19-2021 16:31-0400 Body weight 76.8 kg Oriana Nag S Mallapareddi Work Phone: [facility] Work Phone: 11-19-2021 16:31-0400 Diastolic blood pressure 76 mm[Hg] Oriana Nag S Mallapareddi Work Phone: [facility] Work Phone: 11-19-2021 16:31-0400 Heart rate 104 /min Roiana Nag S Mallapareddi Work Phone: [facility] Work Phone: 11-19-2021 16:31-0400 Systolic blood pressure 102 mm[Hg] Oriana Nag S Mallapareddi Work Phone: [facility] Work Phone: 09-03-2021 16:07-0400 Body height 172.72 cm Oriana Nag S Mallapareddi Work Phone: [facility] Work Phone: 09-03-2021 16:07-0400 Body mass index (BMI) [Ratio] 26.21 kg/m2 Oriana Nag S Mallapareddi Work Phone: [facility] Work Phone: 09-03-2021 16:07-0400 Body surface area Derived from formula 1.92 m2 Oriana Nag S Mallapareddi Work Phone: [facility] Work Phone: 09-03-2021 16:07-0400 Body weight 78.18 kg Oriana Nag S Mallapareddi Work Phone: [facility] Work Phone: 09-03-2021 16:07-0400 Diastolic blood pressure 98 mm[Hg] Oriana Nag S Mallapareddi Work Phone: [facility] Work Phone: 09-03-2021 16:07-0400 Heart rate 96 /min Oriana Nag S Mallapareddi Work Phone: [facility] Work Phone: 09-03-2021 16:07-0400 Systolic blood pressure 132 mm[Hg] Oriana Nag S Mallapareddi Work Phone: [facility] Work Phone: 08-13-2021 16:10-0400 Body height 172.72 cm Oriana Nag S Mallapareddi Work Phone: [facility] Work Phone: 08-13-2021 16:10-0400 Body mass index (BMI) [Ratio] 26.46 kg/m2 Oriana Nag S Mallapareddi Work Phone: [facility] Work Phone: 08-13-2021 16:10-0400 Body surface area Derived from formula 1.93 m2 Oriana Nag S Mallapareddi Work Phone: [facility] Work Phone: 08-13-2021 16:10-0400 Body weight 78.92 kg Oriana Nag S Mallapareddi Work Phone: [facility] Work Phone: 08-13-2021 16:10-0400 Diastolic blood pressure 90 mm[Hg] Oriana Nag S Mallapareddi Work Phone: [facility] Work Phone: 08-13-2021 16:10-0400 Heart rate 84 /min Oriana Nag S Mallapareddi Work Phone: [facility] Work Phone: 08-13-2021 16:10-0400 Systolic blood pressure 128 mm[Hg] Oriana Nag S Mallapareddi Work Phone: [facility] Work Phone: 07-30-2021 16:13-0500 Body height 172.72 cm Oriana Nag S Mallapareddi Work Phone: [facility] Work Phone: 07-30-2021 16:13-0500 Body mass index (BMI) [Ratio] 26.98 kg/m2 Oriana Nag S Mallapareddi Work Phone: [facility] Work Phone: 07-30-2021 16:13-0500 Body surface area Derived from formula 1.94 m2 Oriana Nag S Mallapareddi Work Phone: [facility] Work Phone: 07-30-2021 16:13-0500 Body weight 80.48 kg Oriana Nag S Mallapareddi Work Phone: [facility] Work Phone: 07-30-2021 16:13-0500 Diastolic blood pressure 94 mm[Hg] Oriana Briana S Mallapareddi Work Phone: [facility] [facility] Work Phone: 07-30-2021 16:13-0500 Heart rate 104 /min Oriana Briana S Mallapareddi Work Phone: [facility] Work Phone: 07-30-2021 16:13-0500 Systolic blood pressure 132 mm[Hg] Oriana Nag S Mallapareddi Work Phone: [facility] Work Phone: 07-29-2021 15:13-0500 Body height 172.72 cm Oriana Nag S Mallapareddi Work Phone: OE-Fhysidjypk-Nvfu [facility] [address] Work Phone: 07-29-2021 15:13-0500 Body mass index (BMI) [Ratio] 27.9 kg/m2 Oriana Nag S Mallapareddi Work Phone: WM-Frwppbgcsd-Tgim [address] Work Phone: 07-29-2021 15:13-0500 Body surface area Derived from formula 1.97 m2 Oriana Nag S Mallapareddi Work Phone: GN-Pbqkiqkuwe-Szqp and [address] Work Phone: 07-29-2021 15:13-0500 Body weight 83.24 kg Oriana Nag S Mallapareddi Work Phone: DP-Grmagyohbn-Pqar and [address] Work Phone: 07-29-2021 15:13-0500 Diastolic blood pressure 98 mm[Hg] Oriana Nag S Mallapareddi Work Phone: LA-Exmaxierdd-Ewbm [address] Work Phone: 07-29-2021 15:13-0500 Heart rate 112 /min Oriana Nag S Mallapareddi Work Phone: SQ-Bdrowfiwen-Zltg [address] Work Phone: 07-29-2021 15:13-0500 SaO2% (BldA) [Mass fraction] 92 % Oriana Wiseman Mallapareddi Work Phone: GR-Xeznrvztwa-Zegy [address] Work Phone: 07-29-2021 15:13-0500 Systolic blood pressure 148 mm[Hg] Oriana Wiseman Mallapareddi Work Phone: RA-Ipibthiibv-Oayk [address] Work Phone: 07-23-2021 16:09-0500 Body height 173.99 cm Oriana Wiseman Mallapareddi Work Phone: [facility] Work Phone: 07-23-2021 16:09-0500 Body mass index (BMI) [Ratio] 26.71 kg/m2 Oriana Wiseman Mallapareddi Work Phone: [facility] Work Phone: 07-23-2021 16:09-0500 Body surface area Derived from formula 1.96 m2 Oriana Wiseman Mallapareddi Work Phone: [facility] Work Phone: 07-23-2021 16:09-0500 Body weight 80.85 kg Oriana Wiseman Mallapareddi Work Phone: [facility] Work Phone: 07-23-2021 16:09-0500 Diastolic blood pressure 90 mm[Hg] Oriana Wiseman Mallapareddi Work Phone: [facility] Work Phone: 07-23-2021 16:09-0500 Heart rate 104 /min Oriana Wiseman Mallapareddi Work Phone: [facility] Work Phone: 07-23-2021 16:09-0500 Systolic blood pressure 126 mm[Hg] Oriana Nag S Mallapareddi Work Phone: [facility] Work Phone: 2021 08:39-0500 Body height 173.99 cm Oriana Nag S Mallapareddi Work Phone: [facility] Work Phone: 2021 08:39-0500 Body mass index (BMI) [Ratio] 26.59 kg/m2 Oriana Nag S Mallapareddi Work Phone: [facility] Work Phone: 2021 08:39-0500 Body surface area Derived from formula 1.95 m2 Oriana Nag S Mallapareddi Work Phone: [facility] Work Phone: 2021 08:39-0500 Body weight 80.48 kg Oriana Nag S Mallapareddi Work Phone: [facility] Work Phone: 2021 08:39-0500 Diastolic blood pressure 100 mm[Hg] Oriana Nag S Mallapareddi Work Phone: [facility] Work Phone: 2021 08:39-0500 Heart rate 92 /min Oriana Nag S Mallapareddi Work Phone: [facility] Work Phone: 2021 08:39-0500 Systolic blood pressure 134 mm[Hg] Oriana Nag S Mallapareddi Work Phone: [facility] Work Phone: 03-12-2021 16:53-0400 Body height 173.99 cm Oriana Nag S Mallapareddi Work Phone: [facility] Work Phone: 03-12-2021 16:53-0400 Body mass index (BMI) [Ratio] 25.79 kg/m2 Oriana Nag S Mallapareddi Work Phone: [facility] Work Phone: 03-12-2021 16:53-0400 Body surface area Derived from formula 1.93 m2 Oriana Nag S Mallapareddi Work Phone: [facility] Work Phone: 03-12-2021 16:53-0400 Body weight 78.07 kg Oriana Nag S Mallapareddi Work Phone: [facility] Work Phone: 03-12-2021 16:53-0400 Diastolic blood pressure 88 mm[Hg] Oriana Nag S Mallapareddi Work Phone: [facility] Work Phone: 03-12-2021 16:53-0400 Heart rate 88 /min Oriana Nag S Mallapareddi Work Phone: [facility] Work Phone: 03-12-2021 16:53-0400 Systolic blood pressure 122 mm[Hg] Oriana Nag S Mallapareddi Work Phone: [facility] Work Phone: 12-03-2020 14:12-0400 Body height 173.99 cm Oriana Nag S Mallapareddi Work Phone: [facility] Work Phone: 12-03-2020 14:12-0400 Body mass index (BMI) [Ratio] 24.03 kg/m2 Oriana Nag S Mallapareddi Work Phone: [facility] Work Phone: 12-03-2020 14:12-0400 Body surface area Derived from formula 1.87 m2 Oriana Nag S Mallapareddi Work Phone: [facility] Work Phone: 12-03-2020 14:12-0400 Body weight 72.74 kg Oriana Nag S Mallapareddi Work Phone: [facility] Work Phone: 12-03-2020 14:12-0400 Diastolic blood pressure 84 mm[Hg] Oriana Nag S Mallapareddi Work Phone: [facility] Work Phone: 12-03-2020 14:12-0400 Heart rate 104 /min Oriana Nag S Mallapareddi Work Phone: [facility] Work Phone: 12-03-2020 14:12-0400 Systolic blood pressure 112 mm[Hg] Oriana Nag S Mallapareddi Work Phone: [facility] Work Phone: 11-09-2020 16:13-0400 Body height 173.99 cm Oriana Nag S Mallapareddi Work Phone: [facility] Work Phone: 11-09-2020 16:13-0400 Body mass index (BMI) [Ratio] 24.18 kg/m2 Oriana Nag S Mallapareddi Work Phone: [facility] Work Phone: 11-09-2020 16:13-0400 Body surface area Derived from formula 1.88 m2 Oriana Nag S Mallapareddi Work Phone: [facility] Work Phone: 11-09-2020 16:13-0400 Body weight 73.2 kg Oriana Nag S Mallapareddi Work Phone: [facility] Work Phone: 11-09-2020 16:13-0400 Diastolic blood pressure 82 mm[Hg] Oriana Nag S Mallapareddi Work Phone: [facility] Work Phone: 11-09-2020 16:13-0400 Heart rate 96 /min Oriana Sandyreddelma Work Phone: [facility] Work Phone: 11-09-2020 16:13-0400 Systolic blood pressure 110 mm[Hg] Oriana Sandyreddi Work Phone: [facility] Work Phone: 11-06-2020 10:00-0400 Body temperature 98.06 [degF] Oriana [facility] Other Phone (unformatted): [phone] 11-06-2020 10:00-0400 Diastolic blood pressure 85 mm[Hg] Oriana [facility] Other Phone (unformatted): [phone] 11-06-2020 10:00-0400 Heart rate 78 /min [facility] Other Phone (unformatted): [phone] 11-06-2020 10:00-0400 Respiratory rate 18 /min Oriana [facility] Other Phone (unformatted): [phone] 11-06-2020 10:00-0400 SaO2% (BldA) [Mass fraction] 94 % Oriana Warren [facility] Other Phone (unformatted): [phone] 11-06-2020 10:00-0400 Systolic blood pressure 116 mm[Hg] Oriana [facility] Other Phone (unformatted): [phone] 10-26-2020 17:12-0400 Body height 173.99 cm Oriana Sandyreddi Work Phone: [facility] Work Phone: 10-26-2020 17:12-0400 Body mass index (BMI) [Ratio] 24.49 kg/m2 Oriana Sandyreddi Work Phone: [facility] Work Phone: 10-26-2020 17:12-0400 Body surface area Derived from formula 1.89 m2 Oriana Nag S Mallapareddi Work Phone: [facility] Work Phone: 10-26-2020 17:12-0400 Body weight 74.13 kg Oriana Nag S Mallapareddi Work Phone: [facility] Work Phone: 10-26-2020 17:12-0400 Diastolic blood pressure 90 mm[Hg] Oriana Nag S Mallapareddi Work Phone: [facility] Work Phone: 10-26-2020 17:12-0400 Heart rate 92 /min Oriana Nag S Mallapareddi Work Phone: [facility] Work Phone: 10-26-2020 17:12-0400 Systolic blood pressure 126 mm[Hg] Oriana Nag S Mallapareddi Work Phone: [facility] Work Phone: 08-03-2020 14:18-0500 BMI (Body Mass Index) 22.96 kg/m2 Jakub Styles [facility] 08-03-2020 14:18-0500 Body weight 72.58 kg Jakub Styles [facility] 08-03-2020 14:18-0500 Height 177.8 cm Jakub Styles [facility] 05-19-2020 10:49-0500 Body Temperature 98.4 [degF] [facility] 05-19-2020 10:49-0500 BP Diastolic 87 mm[Hg] [facility] 05-19-2020 10:49-0500 BP Systolic 126 mm[Hg] [facility] 05-19-2020 10:49-0500 Pulse (Heart Rate) 81 /min [facility] 05-19-2020 10:49-0500 Pulse Oximetry 96 % [facility] 05-19-2020 10:49-0500 Respiratory Rate 16 /min [facility] 05-17-2020 18:06-0500 BMI (Body Mass Index) 22.96 kg/m2 [facility] 05-17-2020 18:06-0500 Body weight 72.58 kg [facility] 05-17-2020 18:06-0500 Height 177.8 cm [facility] 04-14-2020 12:41-0500 BP Diastolic 82 mm[Hg] [facility] Comment on above: recheck ncb 04-14-2020 12:41-0500 BP Systolic 125 mm[Hg] [facility] Comment on above: recheck [facility] 04-14-2020 12:38-0500 BMI (Body Mass Index) 23.68 kg/m2 [facility] 04-14-2020 12:38-0500 Body Temperature 97.59 [degF] [facility] 04-14-2020 12:38-0500 Body weight 74.84 kg [facility] 04-14-2020 12:38-0500 Height 177.8 cm [facility] 04-14-2020 12:38-0500 Pulse (Heart Rate) 98 /min [facility] 04-14-2020 12:38-0500 Pulse Oximetry 94 % [facility] 04-14-2020 12:38-0500 Respiratory Rate 16 /min [facility] 07-05-2019 15:02-0500 BMI (Body Mass Index) 24.41 kg/m2 [facility] 07-05-2019 15:02-0500 Body weight 79.38 kg [facility] 07-05-2019 15:02-0500 Height 180.3 cm [facility] 03-31-2019 18:28-0500 Pulse Oximetry 97 % Jus Franco [facility] Work Phone: Comment on above: Source: 03-31-2019 18:14-0500 BMI (Body Mass Index) 25.63 kg/m2 Jus Franco [facility] Work Phone: 03-31-2019 18:14-0500 BSA (Body Surface Area) 1.92 m2 Jus Franco [facility] Work Phone: 03-31-2019 18:14-0500 Height 174 cm Jus Franco [facility] Work Phone: 03-31-2019 18:12-0500 Body Temperature 98 [degF] Jus Franco [facility] Work Phone: 03-31-2019 18:12-0500 Body weight 77.61 kg Jus Franco [facility] Work Phone: 03-31-2019 18:12-0500 BP Diastolic 88 mm[Hg] Jus Franco [facility] Work Phone: 03-31-2019 18:12-0500 BP Systolic 128 mm[Hg] Jus Franco [facility] Work Phone: 03-31-2019 18:12-0500 Pulse (Heart Rate) 80 /min Jus Franco [facility] Work Phone: Encounters Encounter Date Encounter Type Care Provider Facility Start: 03-01-2025 ambulatory ANI TRINH MD [facility] ity:ALIA PRESTON Start: 12-26-2024 End: 12-26-[address] AUBRIE BIRMINGHAM MD Facility:A Start: 12-13-2024 End: 12-13-2024 ambulatory No Primary Care Physician [facility] [place] Start: 12-13-2024 End: 12-13-2024 Patient encounter procedure No Primary Care Physician [facility] [place] Work Phone: Start: 12-13-2024 End: 12-13-2024 ambulatory [place] Facility:[facility] Start: 08-17-2024 End: 08-17-2024 ambulatory MACHELLE PATEL MD Facility:A Start: 08-17-2024 End: 08-17-[address] AUBRIE BIRMINGHAM MD [facility] Start: 08-03-2024 End: 08-03-[address] AUBRIE BIRMINGHAM MD [facility] Start: 08-03-2024 End: 08-03-[address] AUBRIE BIRMINGHAM MD Facility:A Start: 07-28-2024 ambulatory ASIM HOGAN Ramila lity:[id number] Start: 07-28-2024 End: 07-28-2024 Subsequent hospital visit by physician [facility] Work Phone: [facility] Start: 07-08-[address] AUBRIE BIRMINGHAM MD Facility:A Start: 07-08-2024 End: 07-08-2024 ambulatory NONE PHYSICIAN Facility:A Start: 07-08-2024 End: 07-08-[address] AUBRIE BIRMINGHAM MD [facility] Start: 06-22-2024 End: 06-22-2024 ambulatory RAMAKRISHNA MEYERSIUS GABRIEL Facility:[id number] Start: 04-08-2024 ambulatory CHANTALE LOPEZMARIANNA Facility :[id number] Start: 04-08-2024 End: 04-08-2024 Subsequent hospital visit by physician [facility] Miguel Work Phone: [facility] M[facility]UEL Comment on above: Headache, unspecifie d [R51.9] Start: 03-10-2024 End: 03-10-2024 ambulatory AMARESHWAR PODALL Facility:[id number] Start: 03-08-2024 End: 03-08-2024 ambulatory AMARESBOLA PODUGU Facility:[id number] Start: 03-07-2024 ambulatory NONE PHYSICIAN Facility :A Start: 02-17-2024 End: 02-22-2024 Evaluation and management of inpatient DR DONNA FAJARDO MD [facility] Start: 02-02-2024 ambulatory Tim Pandya Facility:[facility] Start: 02-01-2024 ambulatory Earnestine L White Facility :[facility] Start: 01-31-2024 ambulatory Earnestine L White Facility :[facility] Start: 01-31-2024 End: 02-02-2024 Evaluation and management of inpatient Earnestine L White Facility:[facility] Start: 05-21-2022 ambulatory ORIANA WARREN [facility] Facility:[id number] Start: 04-29-2022 AUDIT Oriana Warren S Mallapareddi Work Phone: [facility] Work Phone: Start: 04-25-2022 Chart Update Oriana Briana S Mallapareddi Work Phone: [facility] Work Phone: Start: 03-14-2022 Telephone encounter Oriana Briana S Mallapareddi Work Phone: [facility] Work Phone: Start: 03-13-2022 ambulatory Arnold Sippey Facility:[id number] Start: 03-06-2022 Office consultation new/estab patient 60 min Oriana Briana S Mallapareddi Work Phone: [facility] Work Phone: Start: 03-06-2022 ambulatory ARNOLD SIPPEY Facility:[id number] Start: 03-03-2022 ambulatory ARNOLD SIPPEY Facility:[id number] Start: 02-21-2022 AUDIT Oriana Warren S Mallapareddi Work Phone: -[facility] Work Phone: Start: 02-20-2022 ambulatory ORIANA-BRIANA [facility] Facility:[id number] Start: 02-18-2022 ambulatory ORIANA WARREN [facility] Facility:[id number] Start: 02-18-2022 Office outpatient vi sit 25 minutes Oriana Briana S Mallapareddi Work Phone: [facility] Work Phone: Start: 01-27-2022 Chart Update Oriana Briana S Mallapareddi Work Phone: [facility] Work Phone: Start: 01-24-2022 AUDIT Oriana Nag S Mallapareddi Work Phone: [facility] Work Phone: Start: 01-20-2022 Office outpatient vi sit 25 minutes Oriana Nag S Mallapareddi Work Phone: [facility] Work Phone: Start: 01-20-2022 ambulatory ORIANA NAG [facility] Facility:[id number] Start: 12-27-2021 ambulatory ORIANA NAG [facility] Facility:[id number] Start: 12-17-2021 ambulatory ORIANA NAG [facility] Facility:[id number] Start: 12-03-2021 ambulatory ORIANA NAG [facility] Facility:[id number] Start: 11-28-2021 AUDIT Oriana Nag S Mallapareddi Work Phone: [facility] Work Phone: Start: 11-19-2021 ambulatory ORIANA NAG [facility] Facility:[id number] Start: 11-19-2021 Office outpatient vi sit 15 minutes Oriana Nag S Mallapareddi Work Phone: [facility] Work Phone: Start: 09-10-2021 ambulatory ORIANA NAG [facility] Facility:[id number] Start: 09-03-2021 ambulatory ORIANA NAG [facility] Facility:[id number] Start: 09-03-2021 Office outpatient vi sit 15 minutes Oriana Nag S Mallapareddi Work Phone: [facility] Work Phone: Start: 09-03-2021 Patient encounter procedure Ar un Nag S Mallapareddi Work Phone: [facility] Work Phone: Start: 08-13-2021 ambulatory ORIANA NAG [facility] Facility:[id number] Start: 08-13-2021 Office outpatient vi sit 15 minutes Oriana Warren S Mallapareddi Work Phone: [facility] Work Phone: Start: 08-13-2021 Patient encounter procedure Ar un Briana S Mallapareddi Work Phone: [facility] Work Phone: Start: 07-30-2021 FUVHOSP, Provider: Oriana Yousif, Status: Pen, Time: 4:00 PM Oriana Briana S Mallapareddi Work Phone: [address] Work Phone: Start: 07-30-2021 Office outpatient vi sit 15 minutes Oriana Warren S Mallapareddi Work Phone: [facility] Work Phone: Start: 07-30-2021 Patient encounter procedure Hal Warren S Mallapareddi Work Phone: [facility] Work Phone: Start: 07-30-2021 ambulatory ORIANA NAG [facility] Facility:[id number] Start: 07-29-2021 ambulatory ORIANA NAG [facility] Facility:[id number] Start: 07-29-2021 NPV, Provider: Mery Farris, Status: Pen, Time: 3:00 PM Oriana Warren S Mallapareddi Work Phone: [facility] Work Phone: Start: 07-27-2021 End: 07-27-2021 Emergency department patient visit [facility] Start: 07-24-2021 CLEMENTETUNJose, Provider: [facility], Status: Pen, Time: 8:00 AM Oriana Warren S Mallapareddi Work Phone: [facility] Work Phone: Start: 07-24-2021 ambulatory ORIANA-NAG [facility] Facility:[id number] Start: 07-23-2021 Office outpatient vi sit 15 minutes Oriana Nag S Mallapareddi Work Phone: [facility] Work Phone: Start: 07-23-2021 Patient encounter procedure Ar un Nag S Mallapareddi Work Phone: [facility] Work Phone: Start: 07-23-2021 ambulatory ORIANA BRIANA [facility] Facility:[id number] Start: 2021 ambulatory ORIANA BRIANA [facility] Facility:[id number] Start: 2021 Office outpatient vi sit 15 minutes Oriana Nag S Mallapareddi Work Phone: [facility] Work Phone: Start: 06-25-2021 ambulatory ORIANA [facility] Facility:[id number] Start: 06-20-2021 AUDIT Oriana Nag S Mallapareddi Work Phone: [facility] Work Phone: Start: 05-14-2021 Patient encounter procedure Ar un Nag S Mallapareddi Work Phone: [facility] Work Phone: Start: 05-14-2021 ambulatory ORIANABRIANA [facility] Facility:[id number] Start: 03-12-2021 Office outpatient vi sit 15 minutes Oriana Nag S Mallapareddi Work Phone: [facility] Work Phone: Start: 12-03-2020 Office outpatient vi sit 15 minutes Oriana Nag S Mallapareddi Work Phone: [facility] Work Phone: Start: 12-03-2020 Patient encounter procedure Ar un Nag S Mallapareddi Work Phone: [facility] Work Phone: Start: 11-09-2020 Office outpatient vi sit 15 minutes Oriana Nag S Mallapareddi Work Phone: [facility] Work Phone: Start: 11-04-2020 End: 11-06-2020 Evaluation and management of inpatient Socrates [phone] Other Phone (unformatted): [phone] Start: 11-02-2020 Office consultation new/estab patient 80 min Oriana Nag S Mallapareddi Work Phone: [facility] Work Phone: Start: 10-31-2020 Chart Update Oriana Nag S Mallapareddi Work Phone: [facility] Work Phone: Start: 10-31-2020 End: 10-31-2020 Documentation procedure Marisol Cooper LPN [facility] Start: 10-30-2020 Patient encounter procedure Ar un Nag S Mallapareddi Work Phone: [facility] Work Phone: Start: 10-30-2020 JAMELDVTUNI, Provider: [facility], Status: Pen, Time: 12:00 PM Oriana Nag S Mallapareddi Work Phone: [facility] Work Phone: Start: 10-26-2020 Office outpatient vi sit 15 minutes Oriana Nag S Mallapareddi Work Phone: [facility] Work Phone: Start: 08-03-2020 End: 08-07-2020 Patient encounter procedure JAKUB STYLES [facility] Start: 08-03-2020 End: 08-03-2020 Postop follow up visit related to original px Jakub Styles Work Phone: [facility] Comment on above: Closed nondisplaced intertrochanteric fracture of right femur with routine healing, subsequent encounter (Primary Dx) Start: 07-06-2020 End: 07-10-2020 Patient encounter procedure JAKUB STYLES [facility] Start: 07-06-2020 End: 07-06-2020 Postop follow up visit related to original px Jakub Styles Work Phone: [facility] Comment on above: Closed nondisplaced intertrochanteric fracture of right femur with routine healing, subsequent encounter (Primary Dx) Start: 06-22-2020 End: 06-22-2020 Documentation procedure Trupti Paez [facility] Comment on above: Closed nondisplaced intertrochanteric fracture of right femur with routine healing, subsequent encounter (Primary Dx); Acute pain due to trauma Start: 06-20-2020 End: 06-20-2020 Mike Cooper [facility] Comment on above: Closed nondisplaced intertrochanteric fracture of right femur with routine healing, subsequent encounter (Primary Dx); Acute pain due to trauma Start: 06-07-2020 Patient encounter procedure JAKUB STYLES [facility] Start: 06-01-2020 End: 06-05-2020 Patient encounter procedure JAKUB STYLES [facility] Start: 06-01-2020 End: 06-01-2020 Patient encounter procedure JAKUB STYLES [facility] Start: 06-01-2020 End: 06-01-2020 Postop follow up visit related to original px Jakub Styles Work Phone: [facility] Comment on above: Closed nondisplaced intertrochanteric fracture of right femur with routine healing, subsequent encounter (Primary Dx) Start: 05-17-2020 End: 05-19-2020 Evaluation and management of inpatient Cleo Concha Shola Work Phone: [facility] Comment on above: Closed nondisplaced intertrochanteric fracture of femur, unspecified laterality, initial encounter (HCC) (Primary Dx); Fall at home, initial encounter; Closed nondisplaced intertrochanteric fracture of right femur, initial encounter (HCC) Start: 04-14-2020 End: 04-18-2020 Patient encounter procedure MACY SANTANA [facility] Start: 04-14-2020 End: 04-14-2020 Office outpatient visit 15 minutes Macy Santana Work Phone: [facility] Darshan Comment on above: Foreign body in foot , left, initial encounter (Primary Dx) Start: 07-05-2019 End: 07-05-2019 Office outpatient new 30 minutes Jus Pugalas Work Phone: [facility] Comment on above: Bilateral elbow join t pain Start: 06-07-2019 Patient encounter procedure Konstant inos Tourlas [facility] Work Phone: Start: 03-31-2019 Patient encounter procedure Konstant inos Tourlas [facility] Work Phone: Start: 06-12-2017 End: 06-13-2017 Ambulatory Rubens Frye [facility] Facility:[facility] Start: 05-29-2017 End: 05-30-2017 Ambulatory [facility] Facility:[facility] Start: 03-03-2017 End: 03-04-2017 Ambulatory Josy Diego Facility:[facility] Start: 01-15-2017 End: 01-16-2017 Ambulatory Jus Tourlas Facility:[facility] Procedures Date Procedure Procedure Detail Performing Clinician Start: 12-13-2024 Awrwg-5-Fsdqmyjkzhl measurement No Prima ry Care Physician Comment on above: [facility] Electrochemiluminescen ce Immunoassay(ECLIA)Values obtained with different assay methods or kits cannotbe used interchangeably. Results cannot be interpreted asabsolute evidence of the presence or absence of malignantdisease.This test is not interpretable in females.Performed at: [facility] [id number] Director: Scott Pope PhD, Phone: [phone] Start: 05-07-2021 Follow-up visit Start: 11-05-2020 Antibody screen Comment on above: Performed By: #### MG #### [address] [address] Start: 05-19-2020 Hemoglobin [Mass/volume] in Blood Jakub Styles Work Phone: Start: 05-18-2020 Radex hip unilateral with pelvis 2-3 views Jakub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 Discharge Medications: Home Medication hydroCHLOROthiazide 12.5 mg [...] for Continuing Care: Thank you for choosing [facility] - it has been a pleasure taking [...] about the care you received please call [facility] at . Additional Instructions *You have been [...] the note. I personally evaluated the patient [id number] (more content not included)...[facility]06-14-2021 NoteHistory & Physical Reviewed: I have reviewed [...] the note. I personally evaluated the patient [id number] Attending Provider Inpatient Certification StatementI certify this patients need for inpatient care based on the above documentation including; the order to admit as inpatient, the anticipated length of stay, diagnosis, problem list and plan of care, and discharge plan. Admission Order - View OnlyCurrent Admission Order. Admit to Inpatient Adult Community Transfer to, [facility]: [place] [address] ICU Stepdown Admitting Diagnosis, I82.409 DVT (deep venous thrombosis) , Attending Provider Angel Dietz Level of Care, Telemetry Angel Dietz Electronic Signatures: Alvaro Bah) (Signed 12-Nov-2020 07:58) Authored: ERABowen, Note Completion Co-Signer: History & Physical Reviewed, Airway/Sedation, Consent, Note Completion Jessica Fairchild (Resident)) (Signed 05-Nov-2020 16:16) Authored: History & Physical Reviewed, Airway/Sedation, Consent, Note Completion Last Updated: 12-Nov-2020 07:58 by Alvaro Bah)[facility]06-14-2021 NoteHistory of Present Illness: Admission Reason: extensive R LE DVT HPI: 55 yo M with PMHx of COPD, HTN, tobacco dependence, EtOH abuse, and s/p ORIF R hip in [place] 05/18/20 presents with an extensive R LE [...] R LE Objective: Objective Information: T PRBPSpO2 Value36.6869961/6794% Date/Time11/04 22: 22: 21: 22: 22:59 Range(36.6C - 36.9C ) (93 - [...] Tobacco dependence s/p ORIF R hip in [place] 05/18/20 Plan: - Start heparin drip (last [...] Admit to Inpatient Adult Community Transfer to, [facility]: [place] 8 ICU Stepdown Admitting Diagnosis, I82.409 DVT [...] Last Updated: 05-Nov-2020 00:59 by Angel Dietz ()[facility]06-11-2021 Chief complaint Narrative - Reported* An interactive audio and video telecommunication system which permits real time communications between the patient (at the originating site) and provider (at the distant site) was utilized to providethis telehealth service. * Verbal consent was requested and obtained from NARCISO GLEZ on this date, 11/02/2020 03:45 PM , for a telehealth visit. * RLE acute DVT [facility] Work Phone: 1([phone]) 388-216706-11-2021 Chief complaint Narrative - Reported* An interactive audio and video telecommunication system which permits real time communications between the patient (at the originating site) and provider (at the distant site) was utilized to providethis telehealth service. * Verbal consent was requested and obtained from NARCISO GLEZ on this date, 11/02/2020 03:45 PM , for a telehealth visit. * RLE acute DVT [facility] Work Phone: [phone]) [phone] History of Present illness Narrative* Marisol Cooper LPN - 10/31/2020 4:21 PM EDT Narciso left a message to cancel his appointment for Thursday. He has a blood clot in a leg. His PCP has put him on Coumadin and sending him to a specialist. documented in this [id number] History of Present illness Narrative* PCP: Nica * I had the pleasure of seeing Mr. GLEZ in the [facility] cardiology clinic today. Briefly, this is a [...] clinic. Ongoing edema and pain despite anticoagulation. [place] Work Phone: 1([phone]) [phone] History of Present illness Narrative* Here for [...] his symptoms were minimal at that time. -[facility] Work Phone: 1([phone]) 138-503505-24-2021 History of Present illness Narrative* Here for [...] his symptoms were minimal at that time. -[facility] Work Phone: Evaluation note* Constitutional: alert and cooperativeCardiovascular: Regular, rate and rhythm, no murmurs, + pulsesof the extremities, normal S1 and U7Nxvkbuxzvih/Thorax: Diminished breath sounds bilaterally, thorax symmetricHead/Neck: No JVD, trachea midlineENMT: mucous membranes moistEyes: clear scleraSkin: Warm and dry. Right popliteal site covered with DRSG D+I, no hematoma, no ecchymosis, no erythema.Extremities: no cyanosis, no edemaMusculoskeletal: ROM intact, no joint swelling, normal strengthGastrointestinal: Nondistended, soft, non-tender, no masses palpable, no organomegaly, +BSPsychological: Appropriate mood and behaviorNeurological: alert and oriented x3 [facility] Other Phone (unformatted): [phone] noteNo assessment information availableWMercy Health St. [facility] Work Phone: History of Present illness NarrativeNarciso is a 55-year-old male here for follow-up regarding his right lower extremity DVT. Patient has underwent surgical intervention for DVT removal. Patient reports that the procedure went well. However had some many complications after the procedure. His right lower extremity swelling has significantly decreased now. Reports that he continues to have mild right lower extremity pain.[facility] Work Phone: History of Present illness [...] that his episode was considered provoked DVT). -[facility] Work Phone: History of Present illness NarrativeRightGrisell Memorial Hospital Work Phone: History of Present illness [...] appointment. * Follow-up based on ultrasound results. [facility] Work Phone: History of Present illness [...] further evaluation. * Follow-up in 3 months. [facility] Work Phone: History of Present illness [...] the appointment. * Follow-up in 3 months. [facility] Work Phone: History of Present illness [...] it. * Follow up in 4 weeks. -[facility] Work Phone: History of Present illness Narrative* [...] 3 months. Sooner if worsening of symptoms. [facility] Work Phone: Hospital course Narrative No data available for this section [facility] Discharge instructions* Activity:activity as tolerated. * [...] Up Appointment 1:Physician/Dept/Service: Dr. Herman for Referral: [facility] to Schedule in: 1 week * Follow Up Appointment 2:Physician/Dept/Service: Dr. Bah with ultrasound of right legScheduled Date/Time: 02-May-2021 01:00Location: [facility] 2nd Floor Cardio, [address] [place] [address]Bckqh Number: [phone]: Please follow up with Dr. Bah and ultrasound completed 05/02/21 at 1:00PM as scheduled. [facility] Other Phone (unformatted): [phone] Discharge instructions No data available for this section [facility] Progress note No data available for this section [facility] Reason for referral (narrative)No reason for referral information availableWMercy Health St. [facility] Work Phone: Reason for visit Narrative* Diagnostic Procedure Only (Routine) - Authorized Specialty Diagnoses / Procedures Referred By Hans alonso Referred To Contact Radiology / RADIO CT SCAN Diagnoses Headache, unspecified R51.9, Dr Chantale Cabral, order in Scan Doc, sched w/office Procedures CT HEAD/BRAIN W/O CONTRAST MATERIAL CT WO ALVARO B 400 Chantale Cabral MD [address] [facility] [address] [place] [address] Scan [facility] [address] [place] [address] Referral ID Status Reason Start Date Expiration Date V isits Requested Visits Authorized [id number] Authorized 04/08/2024 05/24/2024 2 2 [facility] Summary Purpose Family History No Family History [...] ob structive pulmonary disease: Mother(V17.6, Z82.5) Status:Active Relationship Condition Age at Onset Recorded Date/T juanita mother Chronic obstructive pulmonary disease Unk nown Advance Directives No Advanced Directives Records FoundDocuments on File Type Date Recorded Patient Visual Education Director Expl anation Advance Directives and Living Will Documents on File Type Date Recorded Patient Visual Education Director Expl anation Advance Directives and Living Will Documents on File Type Date Recorded Patient Visual Education Director Expl anation Advance Directives and Livin g [...] 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 He had an x-ray and was told he had a mass or something and was referred here. His pain started out posterior,but now it is concentrated laterally in each. He has pain with lobster catcher and lifting objects. He has nothad a lot of numbness. PAST HISTORY He has had a clavicle fracture and surgery. 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 Smokes. Reports occasional beer. No drug [...] Good pronation and supination. Pain with resisted lobster catcher and extension of his wrist. X-rays from [facility] 06/07/2019 reveal no arthritis or other abnormalities. [...] 12:46 PM EST PATIENT NAME: Narciso Glez [facility] [address] [facility] [id number] : 1965 DATE OF VISIT: 04/14/2020 #: [id number] PROVIDER: Macy Santana MD Chief Complaint [...] COPD (chronic obstructive pulmonary disease) (HCC) Fractures There is no problem list on [...] file Gets together: Not on file Attends hoahaoism service: Not on file Active member of [...] see him in 2 weeks in my [place] office for staple removal. He will use aspirin twice daily as DVT prophylaxis. D 05/19/2020 11:51 [id number] T 05/19/2020 12:06 MCB/MODL * Moon Giordano CNP - 05/19/2020 5:49 AM EST [facility] DAILY PROGRESS NOTE MECHAN ISM: [...] EST Patient Name: Narciso Glez MR #: [id number] The patient was independently seen and examined [...] Butt MD - 05/18/2020 9:13 AM EST [facility] [place] PATIENT: Narciso Glez DATE / TIME: 05/18/20 [...] Caballero CNP - 05/18/2020 5:29 AM EST [facility] DAILY PROGRESS NOTE MECHAN ISM: [...] see him in 2 weeks in my [place] office for staple removal. He will use aspirin twice daily as DVT prophylaxis. D 05/19/2020 11:51 [id number]/[id number] T 05/19/2020 12:06 MCB/MODL * Moon Giordano, THEODORE - 05/19/2020 5:49 AM EST [facility] DAILY PROGRESS NOTE MECHAN ISM: [...] EST Patient Name: Narciso Glez MR #: [id number] The patient was independently seen and examined [...] Butt MD - 05/18/2020 9:13 AM EST [facility] PATIENT: Narciso Glez DATE / TIME: 05/18/20 [...] Caballero CNP - 05/18/2020 5:29 AM EST [facility] DAILY PROGRESS NOTE MECHAN ISM: [...] on: 06/02/2020 12:09 PM by: JAKUB STYLES [[id number]] documented in this encounter* Trupti Paez LPN - 06/22/2020 11:02 AM EST Patient called his prescription for oxycodone isn't at the [facility] in [place]. Spoke with [facility] in [place] they do not have the prescription. Prescription is at the [facility] in [place].they are unable to send to the [facility] in [place]. documented in this encounter* Jakub Styles MD - 07/06/2020 6:22 PM EST Dictation on: 07/06/2020 6:24 PM by: JAKUB STYLSE [[id number]] documented in this encounter* Jakub Styles MD - 08/03/2020 5:52 PM EST Dictation on: 08/03/2020 5:53 PM by: JAKUB STYLES [[id number]] documented in this encounter Assessments Diagnosis Bilateral elbow joint pain Diagnosis Foreign body in foot, left, initial encounter- Primary Diagnosis Fall at home, initial encounter- Primary Closed nondisplaced intertrochanteric fracture of femur, unspecified laterality, initial encounter ([facility]) Closed nondisplaced intertrochanteric fracture of right femur, initial encounter ([facility]) EtOH dependence ([facility]) Diagnosis Closed nondisplaced intertrochanteric fracture of right [...] left, initial encounter Macy Santana MD [address] [place] [address] Dina Rodriguez, DPM [address] [place] [address] Hospital Course * Eunice Randhawa, CONCRETE PRODUCTS DISPATCHER - 05/19/2020 12:32 PM EST DISCHARGE SUMMARY Patient: Narciso Glez Date of : 1965 Site: [facility] Provider: Jus Franco MD Admit Date: 05/17/2020 Discharge Date/Time: 05/19/2020 this afternoon Disposition: Good Clinical Summary Hospital Course: Mr. lGez is a 54 year old male with [...] fracture of femur, unspecified laterality, initial encounter ([facility]) polyethylene glycol (Miralax) 17 gram powder Take [...] Physician(s) Family Provider: Jus Franco MD, Address: [facility] [address] Follow Up: Jakub Styles MD [address] [place], [place] [id number] Follow up on 06/01/2020 Patient instructions, including [...] Narciso Glez Date of : 1965 Site: [facility] Family Provider: Jus Franco MD Admit Date: 05/17/2020 [...] fracture of femur, unspecified laterality, initial encounter ([facility]) polyethylene glycol (Miralax) 17 gram powder Take [...] Physician(s) Family Provider: Jus Franco MD, Address: [address] [place] [address] / [facility] [address] Follow Up: Jakub Styles MD [address] [place], [place] [id number] Follow up on 06/01/2020 Patient instructions, including [...] the hospital. documented in this encounter* Instructions* Eunice Randhawa CNP - 05/19/2020 ORTHOPEDIC [...] section and content) DATE CREATED AUTHOR 11/17/2017 [facility] DATE CREATED AUTHOR AUTHOR'S ORGANIZ ATION 04/18/2020 [facility] DATE CREATED AUTHOR AUTHOR'S ORGANIZ ATION 08/07/2020 [facility] DATE CREATED AUTHOR AUTHOR'S ORGANIZ ATION 11/14/2020 [facility] DATE CREATED AUTHOR AUTHOR'S ORGANIZ ATION 08/03/2021 [facility] DATE CREATED AUTHOR AUTHOR'S ORGANIZ ATION 03/03/2022 [facility] DATE CREATED AUTHOR AUTHOR'S ORGANIZ ATION 03/19/2022 [facility] DATE CREATED AUTHOR AUTHOR'S ORGANIZ ATION 05/21/2022 [facility] DATE CREATED AUTHOR AUTHOR'S ORGANIZ ATION 07/31/2024 [facility] DATE CREATED AUTHOR AUTHOR'S ORGANIZ ATION 08/23/2024 [facility] DATE CREATED AUTHOR AUTHOR'S ORGANIZ ATION 12/20/2024 [facility] DATE CREATED AUTHOR AUTHOR'S ORGANIZ ATION 02/08/2025 [facility] DATE CREATED AUTHOR AUTHOR'S ORGANIZ ATION 03/03/2025 [facility] Reason for Visit (unrecogniz ed section and content) Reason Comments Pain Status Reason Specialty Diagnoses / Procedures Referred By Contact Referred To Contact Closed Sports Medicine Diagnoses Bilateral elbow joint pain Jus Franco MD [address] [place] [address] Jamal Bee MD [address] [place] [address] Reason Comments Foot Pain Pt states 2 months a go he stepped a thorn. Pt states he does not think he pulled out all the thorn. Pt states worst yesterday Reason Comments Fall Status Reason Specialty Diagnoses / Procedures Re ferred By Contact Referred To Contact Diagnoses Fall at home, initial encounter Closed nondisplaced intertrochanteric fracture of femur, unspecified laterality, initial encounter ([facility]) Reason Comments Suture / Staple Removal Wound Check Reason Onset Date Comments Medication Refill 06/20/2020 Reason Onset Date Comments Medication Refill 06/22/2020 Reason Comments Follow-up Jakub Styles MD - 05/18/2020 9:30 AM Rajni Naranjo MD - 05/18/2020 9:13 AM Sandar Powers CNP - 05/17/2020 9:48 PM EST H&P Notes (unrecognized sect ion and content) INTERVAL HISTORY AND PHYSICAL Patient Name: Narciso Glez Admit Date: MR #: [id number] : 1965 The H&P has been reviewed and the patient has been examined. I concur with the findings of the H&P. There are no significant changes. It is appropriate to proceed with the planned procedure. Jakub Styles MD 05/18/2020 9:30 AM [facility] [place] PATIENT: Narciso Glez DATE / TIME: 05/18/20 [...] today with Dr. Styles. Therapy to follow. [facility] SURGICAL HISTORY & PHYSICAL/CONSULTATION NOTE [...] Name: Narciso Glez Admit Date: MR #: [id number] : 1965 The H&P has been reviewed and the patient has been examined. I concur with the findings of the H&P. There are no significant changes. It is appropriate to proceed with the planned procedure. Jakub Styles MD 05/18/2020 9:30 AM [facility] PATIENT: Narciso Glez DATE / TIME: 05/18/20 [...] today with Dr. Styles. Therapy to follow. [facility] SURGICAL HISTORY & PHYSICAL/CONSULTATION NOTE Closed nondisplaced intertrochanteric fracture of right femur (HCC) Assessment & Plan S/p mechanical fall. Regular diet, NPO and MIVF at NH. MRSA pending, Covid negative. PT/INR/PTT in am. [...] fracture of femur, unspecified laterality, initial encounter ([facility]) [S72.146A S/p right hip ORIF 05/18/2020. The [...] Stand: Modified independence Stand Pivot Transfers: Modified [place] Skilled Intervention: Patinet particiapted in 8 minutes [...] RENNY) Prior Level of Function Level of Pre[place]: Independent with ADLs and functional transfers, Independent [...] that he was transferred via squad to [facility], found to have an intertrochanteric hip [...] extremity or organ system. D 05/18/2020 09:38 [id number] T 05/18/2020 09:55 MCB/MODL documented in this [...] fracture of femur, unspecified laterality, initial encounter ([facility]) [S72.146A S/p right hip ORIF 05/18/2020. The [...] Stand: Modified independence Stand Pivot Transfers: Modified [place] Skilled Intervention: Patinet particiapted in 8 minutes [...] RENNY) Prior Level of Function Level of Pre[place]: Independent with ADLs and functional transfers, Independent with homemaking with ambulation Lives With: Significant other Past Medical History: Diagnosis Date COPD (chronic obstructive pulmonary disease) ([facility]) Past Surgical History: Procedure Laterality Date CLAVICLE [...] that he was transferred via squad to [facility], found to have an intertrochanteric hip [...] extremity or organ system. D 05/18/2020 09:38 [id number] T 05/18/2020 09:55 MCB/MODL documented in this [...] light within reach. Will continue to monitor. [facility] ED Attending Note: NAME: Narciso Masters [place] 54 y.o. CSN: [id number] PCP: Jus Franco MD History: Chief Complaint: [...] file Gets together: Not on file Attends hoahaoism service: Not on file Active member of [...] Procedure Abnormality Status --------- ------ CBC Auto Differential[[id number]] Abnormal Final result Manual Differential[[id number]] Abnormal Final result CBC and Diff Morphology[[id number]] Final result Please view results for these [...] fracture of femur, unspecified laterality, initial encounter ([facility]) Disposition: Patient is being hospitalize to med/surg (regular floor) Cleo Jolley MD [facility] Emergency Department (Please note that portions of [...] Pt transported to ED Room 3 by [facility] with complaints of a [...] light within reach. Will continue to monitor. [facility] ED Attending Note: NAME: Narciso Glez 54 y.o. CSN: [id number] PCP: Jus Franco MD History: Chief Complaint: [...] file Gets together: Not on file Attends hoahaoism service: Not on file Active member of [...] Procedure Abnormality Status --------- ------ CBC Auto Differential[[id number]] Abnormal Final result Manual Differential[[id number]] Abnormal Final result CBC and Diff Morphology[[id number]] Final result Please view results for these [...] fracture of femur, unspecified laterality, initial encounter ([facility]) Disposition: Patient is being hospitalize to med/surg (regular floor) Cleo Jolley MD [facility] Emergency Department (Please note that portions of [...] Pt transported to ED Room 3 by [place] with complaints of a [...] effects of opioids. Discharged via w/c to [facility]. Exit Pt states he wants to go home. Denies pain but urged pt to not allow pain to get too bad. Associated Problem(s): EtOH dependence (HCC) - Brief Post Operative Note Patient Name: Narciso Glez : 1965 (54 y.o.) Date of Service: 05/18/2020 [facility]: [id number] Procedure(s): INTRAMEDULLARY NAILING FEMUR RIGHT SHORT NAIL Pre-Operative Diagnoses: * Intertrochanteric Fracture of Proximal Right Femur Post-Operative Diagnoses: * Same as Pre-Op Diagnosis Surgeon(s) and Role: * Jakub Styles MD - Primary Anesthesiologist: Franklin Garcia MD Anesthesiologist Yard Supervisor Cotton Gin: MAYNOR Gardner Beam Dyer: Sunil Nicholas RN; Sylvester Cain RN; Arnold Vasquez RN Polymerization Supervisor: Kaz Schilling, TECHNOLOGIST Scrub Person: ST Leonor Operative findings: see preop Intra and immediate post-operative complications: none Type of anesthesia used: General Estimated blood loss: 75 mL Estimated urine output: Specimen(s): * No specimens in log * Implant(s): Implant Name Type Inv. Item Serial No. Natural Resources Instructor Lot No. LRB No. Used Action NAIL 11 X 170MM 130DEG FEM SHORT DARNELL TI STERL TFNA - [id number] NAIL 11 X 170MM 130DEG FEM SHORT DARNELL TI STERL TFNA SYNTHES LT [id number] Right 1 Implanted SCREW 100MM FEN HELICAL TI STERL TFNA - [id number] SCREW 100MM FEN HELICAL TI STERL TFNA SYNTHES LT [id number] Right 1 Implanted SCREW 5 X 36MM TI LOCKING T25 STRDRV IM NAIL - [id number] SCREW 5 X 36MM TI LOCKING T25 STRDRV IM NAIL SYNTHES LT LOAD #[id number] Right 1 Implanted Drain(s): * No LDAs [...] PACU without intraoperative complication. D 05/18/2020 10:19 [id number] T 05/18/2020 11:15 MCB/MODL [facility] Central UR Utilization Review Notes HISTORY OF PRESENT ILLNESS: [...] effects of opioids. Discharged via w/c to [facility]. Exit Pt states he wants to go home. Denies pain but urged pt to not allow pain to get too bad. Associated Problem(s): EtOH dependence (HCC) - Brief Post Operative Note Patient Name: Narciso Glez : 1965 (54 y.o.) Date of Service: 05/18/2020 CSN: [id number] Procedure(s): INTRAMEDULLARY NAILING FEMUR RIGHT SHORT NAIL Pre-Operative Diagnoses: * Intertrochanteric Fracture of Proximal Right Femur Post-Operative Diagnoses: * Same as Pre-Op Diagnosis Surgeon(s) and Role: * Jakub Styles MD - Primary Anesthesiologist: Franklin Garcia MD Anesthesiologist Yard Supervisor Cotton Gin: MAYNOR Gardner Beam Dyer: Sunil Nicholas RN; Sylvester Cain RN; Arnold Vasquez RN Polymerization Supervisor: Kaz Schilling, TECHNOLOGIST Scrub Person: ST Leonor Operative findings: see preop Intra and immediate post-operative complications: none Type of anesthesia used: General Estimated blood loss: 75 mL Estimated urine output: Specimen(s): * No specimens in log * Implant(s): Implant Name Type Inv. Item Serial No. Natural Resources Instructor Lot No. LRB No. Used Action NAIL 11 X 170MM 130DEG FEM SHORT DARNELL TI STERL TFNA - [id number] NAIL 11 X 170MM 130DEG FEM SHORT DARNELL TI STERL TFNA SYNTHES LT [id number] Right 1 Implanted SCREW 100MM FEN HELICAL TI STERL TFNA - [id number] SCREW 100MM FEN HELICAL TI STERL TFNA SYNTHES LT [id number] Right 1 Implanted SCREW 5 X 36MM TI LOCKING T25 STRDRV IM NAIL - [id number] SCREW 5 X 36MM TI LOCKING T25 STRDRV IM NAIL SYNTHES LT LOAD #[id number] Right 1 Implanted Drain(s): * No LDAs [...] PACU without intraoperative complication. D 05/18/2020 10:19 [id number] T 05/18/2020 11:15 MCB/MODL Central UR Utilization Review Notes HISTORY OF PRESENT ILLNESS: [...] Prescription for Oxycodone d/c'd needs recent to [place]. The original prescription went to [place]. Patient in [place]. documented in this encounter <item> Privacy Markings (unrecogniz ed section and content) Section Author: Malgorzata Gaytan PROHIBITION ON REDISCLOSURE OF CONFIDENTIAL INFORMATION This notice accompanies a disclosure of information concerning a client made to you with the consent of such client. Patient Care team informatio n (unrecognized section and content) Drawing Kiln Supervisor Relationship Specialty Start Date End Date [facility] [address] [place] [id number] PCP - General Internal Medicine 03/08/24 Drawing Kiln Supervisor Relationship Specialty Start Date End Date [facility] [address] [place] [address] PCP - General Internal Medicine 03/08/24 Team Status: Active Member Role/Relationship Status Dates Jakub Phelps MD Family Provider Active No Primary Care Physician Primary Care Provider Active Team Status: Inactive Member Role/Relationship Status Dates No Primary Care Physician Primary Care Provider Active Start: December 13, 2024 End: December 13, 2024 VALENCIA ALFRED Attending Provider Active Sta rt: December 13, 2024 End: December 13, 2024 VALENCIA ALFRED Referring Provider Active Sta rt: December 13, 2024 End: December 13, 2024 Source Comments (unrecognize d section and content) In the event this informatio n is protected by the Federal Confidentiality of Alcohol and Drug Abuse Patient Records regulations: The Federal rules restrict any use of the information to criminally investigate or prosecute any alcohol or drug abuse patient.[facility] the event this information is protected by the Federal Confidentiality of Alcohol and Drug Abuse Patient Records regulations: The Federal rules restrict any use of the information to criminally investigate or prosecute any alcohol or drug abuse patient.[facility] Goals (unrecognized section and content) Goals may be documented in a n alternate section FOR RECORDS PERTAINING TO PATIENTS WHO ARE [...] BE BASED ON THE PRIMARY CLINICAL RECORDS. [facility]. provides no warranty or guarantee of the accuracy or completeness of information in this document.
[2025-05-19 16:11] LABS: Color, Urine Straw (Yellow); Glucose, Dipstick Normal (Normal); Ketone-Dipstick Negative (Negative); Leukocyte Esterase-Dipstick Negative /ul (Negative); Nitrite-Dipstick Negative (Negative); Occult Blood-Urine Negative /ul (Negative); Protein-Dipstick Negative (Negative); Specific Gravity, Urine 1.005 (1.002-1.030); Urine Bilirubin Dipstick Negative (Negative)
[2025-05-19 16:21] LABS: Lipase 14 U/L (13-75)
[2025-05-19 16:23] LABS: AST(SGOT) 70 U/L (<=37); Alanine Aminotransfer ALT/SGPT 53 U/L (<=46); Albumin, Serum 4.2 g/dL (3.5-5.0); Alkaline Phosphatase 173 U/L (40-129); Anion Gap 11 (7-18); BUN 7 mg/dL (4-19); BUN/Creat Ratio 8.8 RATIO (10-20); Calcium,Total 9.3 mg/dL (7.6-11.0); Carbon Dioxide 23.9 mmol/L (20.0-29.0); Chloride 94 mmol/L (96-106); Estimated Creatinine Clearance 103.96 ml/min (50-250); Globulin 3.0 g/dL (2.2-4.2); Glucose 111 mg/dL (70-99); Potassium 4.6 mmol/L (3.5-5.1)
[2025-05-19 16:24] LABS: Red Blood Cells-Urine 0-5 SEEN /hpf (0-5); Squamous Epithelial Cells - UA 0-5 SEEN /hpf (0-5)
--- NOTE | 2025-05-19 16:57 | EDS_ITS ---
HPI History of Present Illness Chief Complaint: Abd Pain Detail of Chief Complaint: Right sided abdominal pain that started approximately 1 week ago Informant: patient Onset/Context/Timing Onset: Weeks Context: Gradual Onset Timing: Continuous Quality: Discomfort Location: Right side of the abdomen mid way between the right costal margin and pelvi Current Severity: Mild Maximum Severity: Mild Worsened by: Nothing Relieved by: Nothing Associated Symptoms Associated Symptoms: Nothing Narrative Narrative: Patient is a 59-year-old male. 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 He presents with right-sided abdominal pain. He states he wanted be checked out before going on vacation. He is good to be out of town for over 2 weeks. He denies fever, chills night sweats. He denies headache, double vision blurry vision loss of vision. He denies cardiac or respiratory symptoms. He does complain of the abdominal pain with no alleviating, exacerbating or precipitating factors. He denies change in color of his stool or consistency of his stool. He denies dysuria, frequency, urgency or hematuria. He denies history of renal ureterolithiasis. He is only presently taking spironolactone. Prior similar symptoms: No Recent Illness/Hospitalization: No PFSH PFSH Medical History History of tobacco abuse History of alcohol abuse History of deep vein thrombosis Bilateral leg edema Abdominal ascites History of venous thromboembolism Alcohol abuse Tobacco use Home Medications ?Medication ?Instructions ?Recorded ?Last Taken ?Type spironolactone 25 mg tablet 25 mg PO DAILYCM #30 tabs 02/02/24 Unknown Rx amitriptyline 10 mg tablet 10 mg PO TID 05/19/25 Unkno wn History famotidine 40 mg tablet (Pepcid) 40 mg PO QHS 05/19/25 Unknown History furosemide 40 mg tablet (Lasix) 40 mg PO DAILY 5 Unknown History Allergy/AdvReac Type Severity Reaction Status Date / Time latex Allergy Mild Rash Verified 05/19/25 15:04 Family History Mother COPD (chronic obstructive pulmonary disease) Father , in his 30s, accidental CO poisoning. No problems noted. Surgical History History of surgery on lower extremity History of hip surgery History of orthopedic surgery Social History household members: none Smoking Status: Current every day smoker tobacco type: cigarettes alcohol intake: current alcohol intake frequency: 3 or more drinks per day details: Prio 1/2 5th crown daily->down to 1-3 drinks daily, cutting back. substance use type: does not use ROS ROS ED Constitutional Constitutional ED: Denies chills, fever(s), subjective, sweats or weight loss Eyes Eyes: Denies blurry vision, change in vision or diplopia ENT ENT ED: Denies ear pain, rhinorrhea or sore throat Cardiovascular Cardiovascular: Denies chest pain or palpitations Respiratory/Chest Respiratory/Chest: Denies cough, dyspnea or dyspnea on exertion Gastrointestinal Gastrointestinal: Reports abdominal pain; Denies constipation, diarrhea, melena, nausea or vomiting Genitourinary Genitourinary ED: Denies dysuria, hematuria or urinary frequency Musculoskeletal Musculoskeletal: Denies arthralgias, back pain or myalgias Integumentary Denies rash Neurologic Neurologic: Denies weakness Hematologic/Lymphatic Hematologic/Lymphatic: Reports systems reviewed and no addt'l complaints, except as documented EXAM Physical Exam Const Vital Signs: 05/19/25 15:03 Temperature 98 F Temperature Source Oral Pulse Rate 82 Respiratory Rate 16 Blood Pressure 129/94 H Blood Pressure Mean 105 Pulse Ox 97 Oxygen Delivery Method Room Air Positive well nourished and well developed General Appearance ED: well developed and NAD; Negative for pallor HEENT Reports moist mucous membranes HEENT Narrative: Head is atraumatic and normocephalic. Ears are normal. Eyes PERRL and EOMs intact bilaterally General Eye ED: Negative for pale conjunctiva or scleral icterus Neck no lymphadenopathy, supple and no JVD Chest Wall inspection of chest normal and palpation of chest normal Resp normal respiratory effort and clear to auscultation bilaterally Cardio regular rate, regular rhythm, S1 normal heart sound and no murmurs GI normal to inspection, nondistended, normoactive bowel sounds, non-tender and no masses; Negative for hepatosplenomegaly Back/Spine no CVA tenderness Extremity normal to inspection General Extremety ED: Negative for edema or tenderness General Extremity: Negative for edema Neuro oriented x3 and CN's II-XII intact bilaterally Sensorium / Orientation: alert Psych mental status grossly normal Skin no rashes or lesions noted, no wounds and skin turgor normal General Skin Exam: elasticity normal; Negative for jaundice or pallor MDM MDM MDM Narrative Medical decision making narrative: Prior records reviewed. Patient does have cirrhosis due to alcohol use. He has not had an alcoholic beverage in 1.5 years. He does have history of ascites and required paracentesis. He presents with vague pain for the past week with no other symptoms. He still smokes. He smokes 1/2 pack/day. 5 years ago he smoked greater than 1 pack/day. Differential diagnoses abdominal pain of unknown etiology, alcoholic hepatitis, hepatitis, fatty liver disease, he does not have findings that would raise concern for spontaneous bacterial peritonitis. His workup included CBC to assess white count differential as well as H&H. Electrolyte panel to assess sodium and chloride since he is on spironolactone and liver enzymes in light of his past history. UA was obtained to assess specific gravity as well as to determine if there is any evidence of ketones etc. History & Record Review Additional record(s) reviewed:: Prior ED visit and Prior labs Lab Data Attestation: I reviewed the patient's lab results. Lab results narrative: CBC reveals an elevated H&H. This is chronic. MCV is elevated. This is chronic as well. Patient has mild hyponatremia and hypochloremia most likely due to the fact that he is on spironolactone. Potassium is normal. Glucose is slightly elevated 111 with normal CO2 anion gap. Liver enzymes revealed a slightly elevated total bili of 1.48 which is approximately his norm. AST and ALT are slightly elevated compared to prior. Urinalysis reveals a spec gravity of 1.005 which also raises concern for psychogenic hyponatremia. Labs: Laboratory Results - last 24 hr 05/19/25 05/19/25 05/19/25 15:22 15:28 15:49 WBC 8.8 RBC 5.07 Hgb 18.1 H* Hct 50.1 MCV 98.8 H MCH 35.7 H MCHC 36.1 H RDW Std Deviation 46.1 H RDW Coeff of Meagan 12.7 Plt Count 271 MPV 9.4 Immature Gran % (Auto) 0.500 Neut % (Auto) 62.6 Lymph % (Auto) 25.0 [place] % (Auto) 10.0 Eos % (Auto) 1.0 Baso % (Auto) 0.9 Absolute Neuts (auto) 5.5 Absolute Lymphs (auto) 2.20 Nucleated RBC % 0 Sodium 128 L Potassium 4.6 Chloride 94 L Carbon Dioxide 23.9 Anion Gap 11 BUN 7 Creatinine 0.79 Estim Creat Clear Calc 103.96 Est GFR (MDRD) Non-Af 102 BUN/Creatinine Ratio 8.8 L Glucose 111 H Calcium 9.3 Total Bilirubin 1.48 H AST 70 H ALT 53 H Alkaline Phosphatase 173 H Total Protein 7.2 Albumin 4.2 Globulin 3.0 Albumin/Globulin Ratio 1.4 Lipase 14 Urine Color Straw Urine Clarity Clear Urine pH 7.0 Ur Specific [place] 1.005 Urine Protein Negative Urine Glucose (UA) Normal Urine Ketones Negative Urine Occult Blood Negative Urine Nitrite Negative Urine Bilirubin Negative Urine Urobilinogen Normal Ur Leukocyte Esterase Negative Urine RBC 0-5 SEEN Urine WBC 0-5 SEEN Ur Squamous Epith Cells 0-5 SEEN Urine Bacteria 0 SEEN Urine Mucus 0 SEEN Treatment and Re-Evaluation :: Patient was informed of results. To be discharged home. Discharge Plan Triage Chief Complaint: Abd Pain ED Provider: Chon Husain Dx/Rx/DC Orders Clinical Impression: Right-sided abdominal pain of unknown cause, Hyponatremia, Acquired polycythemia vera, Elevated bilirubin, Alcoholic liver disease Instructions: ED Hyponatremia, ED Abdominal Pain Unkn Cause Male... Prescriptions: No Action spironolactone 25 mg Tablet 25 mg PO DAILYCM Qty: 30 1RF furosemide [Lasix] 40 mg tablet 40 mg PO DAILY famotidine [Pepcid] 40 mg tablet 40 mg PO QHS amitriptyline 10 mg tablet 10 mg PO TID Primary Care Provider: Care Physician,No Primary Referrals: Care Physician,No Primary [Primary Care Provider, Medical] Activity Restrictions/Additional Instructions: 1. Follow-up with your doctor in 1 to 2 weeks to have your electrolyte panel redrawn. Print Language: Thai Disposition Disposition: Home, Self Care
== END 2025-05-19 17:18 | disposition home or self-care (01) ==
PROVIDERS: Emergency Provider Emergency Medicine; Visit Provider Emergency Medicine
DX: R10.9 Unspecified abdominal pain (principal); K70.30 Alcoholic cirrhosis of liver without ascites; D45 Polycythemia vera; Z86.718 Personal history of other venous thrombosis and embolism; Z79.899 Other long term (current) drug therapy; F17.210 Nicotine dependence, cigarettes, uncomplicated; E87.1 Hypo-osmolality and hyponatremia; F10.90 Alcohol use, unspecified, uncomplicated
CPT/HCPCS: 80053; 81001; 83690; 85025; 99283; A4216